=== PATIENT | female | born 1935 | race Caucasian/White ===

== ENCOUNTER 2018-02-03 13:38 | Inpatient (IN) | payer OTHER, MEDICARE ==
[2018-02-03] VITALS (10 sets, daily range): BP systolic 112–139; BP diastolic 49–88; PULSE 84–125; RESP 16–26; TEMP 98.4; O2SAT 98–100
[~2018-02-03] VITALS: Ht 160 cm; Wt 99.4 kg
[~2018-02-03 13:38] MED LIST: AMLO5TAB96 PO; COZA100T PO; FOSA70TA PO
[2018-02-03] MEDS ORDERED: SODIUM CHLOR 0.9% 1000 ML INJ 1,000 ML IV SCH (13:48)
[2018-02-03] MEDS ORDERED: SODIUM CHLORIDE 0.9% FLUSH 10 ML FLUSH IV FLUSH PRN ×2 (14:00→19:00)
--- NOTE | 2018-02-03 14:03 | PD ---
HPI Chief Complaint: Fall, weakness Time Seen by Provider: 13:48 Travel History International Travel<30 days: No Contact w/Intl Traveler<30days: No Traveled to known affect area: No History of Present Illness HPI 82-year-old female patient presents to the ER today brought in by EMS, had fallen down onto the floor and has been laying on the floor for several days, patient does not remember how she got down to the floor, but was found by neighbor and EMS laying in her own feces and urine, weak, could not get up on her own, complaining of pain all over. She currently is denying any chest pains or trouble breathing but is slightly disoriented. Modifying Factors: None Associated Signs & Symptoms: Fall, weakness, pains all over, disorientation Risk Factors: Elderly PFSH Past Medical History Arthritis: Yes Autoimmune Disease: No Blood Disorders: No Cancer: No Cardiovascular Problems: Yes Diminished Hearing: Yes Endocrine: No Genitourinary: No Hypertension: Yes Musculoskeletal: No Neurologic: Yes (RIGHT ARM TREMOR) Psychiatric: No Respiratory: No ?: Not Past Surgical History Abdominal Surgery: Yes (GASTRIC BYPASS 1978) Appendectomy: Yes Cardiac Surgery: No Ear Surgery: No Endocrine Surgery: No Eye Surgery: No Genitourinary Surgery: No Gynecologic Surgery: Yes (hysterectomy) Hysterectomy: Yes Oral Surgery: No Thoracic Surgery: No Other Surgery: Yes Social History Alcohol Use: No Tobacco Use: No Substance Use: No Allergies-Medications (Allergen,Severity, Reaction): Coded Allergies: No Known Allergies (Verified , 04/07/14) Reported Meds & Prescriptions Reported Meds & Active Scripts Active Review of Systems ROS Limitations: Altered Mental Status (It is unclear whether she is a reliable historian) Except as stated in HPI: all other systems reviewed are Neg Physical Exam Narrative GENERAL: Well-developed elderly white female patient currently in moderate distress. She has feces and urine soaked nightgown as well as stains on her body. She is awake, disoriented. SKIN: Focused skin assessment warm/dry. HEAD: Atraumatic. Normocephalic. EYES: Pupils small, equal and round, poorly reactive to light bilaterally. No scleral icterus. No injection or drainage. ENT: No nasal bleeding or discharge. Mucous membranes pink and moist. NECK: Trachea midline. No JVD. CARDIOVASCULAR: Regular rate and rhythm. No murmur appreciated. RESPIRATORY: No accessory muscle use. Clear to auscultation. Breath sounds equal bilaterally. GASTROINTESTINAL: Abdomen soft, non-tender, nondistended. Hepatic and splenic margins not palpable. Pelvis: Stable but tender to palpation bilaterally. Decreased range of motion of the hip secondary to pain. MUSCULOSKELETAL: No obvious deformities. No clubbing. No cyanosis. No edema. NEUROLOGICAL: Awake and mildly disoriented. No obvious cranial nerve deficits. Generally weak. Normal speech. PSYCHIATRIC: Appropriate mood and affect; insight and judgment poor. Data Data Last Documented VS Vital Signs Date Time Temp Pulse Resp B/P (MAP) Pulse Ox O2 Delivery O2 Flow Rate FiO2 02/03/18 14:22 125 18 126/78 (94) 98 Nasal Cannula 2.00 Orders Orders Ammonia (02/03/18 13:48) Complete Blood Count With Diff (02/03/18 13:48) Comprehensive Metabolic Panel (02/03/18 13:48) Creatine Kinase (Cpk) (02/03/18 13:48) Prothrombin Time / Inr (Pt) (02/03/18 13:48) Act Partial Throm Time (Ptt) (02/03/18 13:48) Troponin I (02/03/18 13:48) Thyroid Stimulating Hormone (02/03/18 13:48) Urinalysis - C+S If Indicated (02/03/18 13:48) Lactic Acid Sepsis Protocol (02/03/18 13:48) Blood Culture (02/03/18 13:48) Chest, Single Ap (02/03/18 13:48) Ct Brain W/O Iv Contrast(Rout) (02/03/18 13:48) Blood Glucose (02/03/18 13:48) Ecg Monitoring (02/03/18 13:48) Iv Access Insert/Monitor (02/03/18 13:48) Cath For Specimen (02/03/18 13:48) Oximetry (02/03/18 13:48) Sodium Chloride 0.9% Flush (Ns Flush) (02/03/18 14:00) Sodium Chlor 0.9% 1000 Ml Inj (Ns 1000 M (02/03/18 13:48) Pelvis, Ap Only (Routine) (02/03/18 13:48) CKMB (02/03/18 13:52) CKMB% (02/03/18 13:52) Urine Culture (02/03/18 14:23) Electrocardiogram (02/03/18 13:45) Piperacil-Tazo 4.5 Gm Premix (Zosyn 4.5 (02/03/18 16:12) Sodium Chlor 0.9% 1000 Ml Inj (Ns 1000 M (02/03/18 16:15) Admit Order (Ed Use Only) (02/03/18 16:21) Labs Laboratory Tests Test 02/03/18 13:52 02/03/18 14:02 02/03/18 14:23 White Blood Count 13.3 TH/MM3 Red Blood Count 4.95 MIL/MM3 Hemoglobin 14.3 GM/DL Hematocrit 44.5 % Mean Corpuscular Volume 89.9 FL Mean Corpuscular Hemoglobin 28.8 PG Mean Corpuscular Hemoglobin Concent 32.1 % Red Cell Distribution Width 14.9 % Platelet Count 211 TH/MM3 Mean Platelet Volume 9.4 FL Neutrophils (%) (Auto) 80.4 % Lymphocytes (%) (Auto) 8.5 % Monocytes (%) (Auto) 10.4 % Eosinophils (%) (Auto) 0.5 % Basophils (%) (Auto) 0.2 % Neutrophils # (Auto) 10.7 TH/MM3 Lymphocytes # (Auto) 1.1 TH/MM3 Monocytes # (Auto) 1.4 TH/MM3 Eosinophils # (Auto) 0.1 TH/MM3 Basophils # (Auto) 0.0 TH/MM3 CBC Comment DIFF FINAL Differential Comment Prothrombin Time 11.0 SEC Prothromb Time International Ratio 1.1 RATIO Activated Partial Thromboplast Time 27.1 SEC Blood Urea Nitrogen 89 MG/DL Creatinine 1.58 MG/DL Random Glucose 130 MG/DL Total Protein 6.3 GM/DL Albumin 2.6 GM/DL Calcium Level 8.1 MG/DL Alkaline Phosphatase 72 U/L Aspartate Amino Transf (AST/SGOT) 61 U/L Alanine Aminotransferase (ALT/SGPT) 45 U/L Total Bilirubin 0.8 MG/DL Sodium Level 157 MEQ/L Potassium Level 3.9 MEQ/L Chloride Level 122 MEQ/L Carbon Dioxide Level 23.3 MEQ/L Anion Gap 12 MEQ/L Estimat Glomerular Filtration Rate 31 ML/MIN Total Creatine Kinase 461 U/L Creatine Kinase MB 8.8 NG/ML Creatine Kinase MB % 1.9 % Troponin I 0.03 NG/ML Thyroid Stimulating Hormone 3rd Gen 0.878 uIU/ML Lactic Acid Level 2.3 mmol/L Ammonia LESS THAN 10 MCMOL/L Urine Color YELLOW Urine Turbidity CLOUDY Urine pH 5.0 Urine Specific [place] 1.022 Urine Protein TRACE mg/dL Urine Glucose (UA) NEG mg/dL Urine Ketones NEG mg/dL Urine Occult Blood SMALL Urine Nitrite NEG Urine Bilirubin NEG Urine Urobilinogen 2.0 MG/DL Urine Leukocyte Esterase LARGE Urine RBC 3 /hpf Urine WBC 15 /hpf Urine WBC Clumps FEW Urine Bacteria MANY /hpf Urine Hyaline Casts 0-2 /lpf Urine Mucus FEW /lpf Microscopic Urinalysis Comment CATH-CULTURE IND MDM Medical Decision Making Medical Screen Exam Complete: Yes Emergency Medical Condition: Yes Medical Record Reviewed: Yes Interpretation(s) EKG shows sinus tachycardia at a rate of 120 bpm with a left bundle branch block pattern. Laboratory Tests Test 02/03/18 13:52 02/03/18 14:02 02/03/18 14:23 White Blood Count 13.3 TH/MM3 (4.0-11.0) Neutrophils (%) (Auto) 80.4 % (16.0-70.0) Lymphocytes (%) (Auto) 8.5 % (9.0-44.0) Monocytes (%) (Auto) 10.4 % (0.0-8.0) Neutrophils # (Auto) 10.7 TH/MM3 (1.8-7.7) Monocytes # (Auto) 1.4 TH/MM3 (0-0.9) Blood Urea Nitrogen 89 MG/DL (7-18) Creatinine 1.58 MG/DL (0.50-1.00) Random Glucose 130 MG/DL (74-106) Total Protein 6.3 GM/DL (6.4-8.2) Albumin 2.6 GM/DL (3.4-5.0) Calcium Level 8.1 MG/DL (8.5-10.1) Aspartate Amino Transf (AST/SGOT) 61 U/L (15-37) Sodium Level 157 MEQ/L (136-145) Chloride Level 122 MEQ/L (98-107) Estimat Glomerular Filtration Rate 31 ML/MIN (>89) Total Creatine Kinase 461 U/L (26-192) Creatine Kinase MB 8.8 NG/ML (0.5-3.6) Lactic Acid Level 2.3 mmol/L (0.4-2.0) Ammonia LESS THAN 10 MCMOL/L Urine Turbidity CLOUDY (CLEAR) Urine Occult Blood SMALL (NEG) Urine Leukocyte Esterase LARGE (NEG) Urine WBC 15 /hpf (0-5) Urine WBC Clumps FEW (NONE) Urine Bacteria MANY /hpf (NONE) Urine Mucus FEW /lpf (OCC) Last 24 hours Impressions Pelvis X-Ray 02/03/18 1348 Signed Impressions: Service Date/Time: Saturday, February 03, 2018 15:01 - CONCLUSION: 1. No acute fracture or dislocation. Todd Young MD Head CT 02/03/18 1348 Signed Impressions: Service Date/Time: Saturday, February 03, 2018 14:27 - CONCLUSION: 1. Senescent changes without acute intracranial abnormality. Todd Young MD Chest X-Ray 02/03/18 6948 Signed Impressions: Service Date/Time: Saturday, February 03, 2018 14:56 - CONCLUSION: 1. No acute abnormality. Todd Young MD Differential Diagnosis Fall, disorientation, general weakness: Intracranial injuries versus dehydration versus metabolic issues versus sepsis versus hip fracture Narrative Course When EMS first did the EKG, there were concerned about a possible STEMI because of the left bundle branch block. Patient was not able to tell them whether this is new or old. On our evaluation, patient has old EKG which shows a left bundle branch block. No signs of acute changes with that. She was initially fairly hypotensive with systolic blood pressure 60, was given a liter of IV fluids by EMS with improvement in blood pressures. Lab work shows UTI and leukocytosis, IV antibiotics were initiated after blood cultures are done. Her lab work shows significant dehydration and acute renal failure with elevated BUN and creatinine, elevated sodium levels. Additional IV fluids have been given in the ER. At this point, case is discussed with Dr. Rdz for admission to the critical care unit for further treatment. Aggregate critical care time was 35 minutes. Time to perform other separately billable procedures was not included in the critical care time. My time did not include minutes spent treating any other patients simultaneously or on activities that did not directly contribute to the patient's treatment. The services I provided to this patient were to treat and/or prevent clinically significant deterioration that could result in: Worsening renal failure, dysrhythmias, septic shock, I provided critical care services requiring my management, as noted below: Chart data review, documentation time, medication orders and management, vital sign assessments/reviewing monitor data, ordering and reviewing lab tests, ordering and interpreting/reviewing x-rays and diagnostic studies, care of the patient and discussion of the patient with the admitting physicians. Diagnosis Primary Impression: Acute renal failure Additional Impressions: Hypernatremia Sepsis UTI (urinary tract infection) Admitting Information Admitting Physician Requests: it Stone Dominguez MD February 03, 2018 14:03
[2018-02-03 14:20] LABS: AUTOMATED NEUTROPHIL # 10.7 TH/MM3 (1.8-7.7); BASOPHIL % 0.2 % (0.0-2.0); EOSINOPHIL # 0.1 TH/MM3 (0-0.4); EOSINOPHIL % 0.5 % (0.0-4.0); HEMATOCRIT 44.5 % (35.0-46.0); HEMOGLOBIN 14.3 GM/DL (11.6-15.3); LYMPH % 8.5 % (9.0-44.0); LYMPHOCYTE # 1.1 TH/MM3 (1.0-4.8); MEAN CELL VOLUME 89.9 FL (80.0-100.0); MEAN CORPUSCULAR HEMOGLOBIN 28.8 PG (27.0-34.0); MEAN CORPUSCULAR HGB CONC 32.1 % (32.0-36.0); MEAN PLATELET VOLUME 9.4 FL (7.0-11.0); MONO % 10.4 % (0.0-8.0); MONOCYTE # 1.4 TH/MM3 (0-0.9); NEUT % 80.4 % (16.0-70.0); PLATELET COUNT 211 TH/MM3 (150-450); RED BLOOD COUNT 4.95 MIL/MM3 (4.00-5.30); RED CELL DISTRIBUTION WIDTH 14.9 % (11.6-17.2); WHITE BLOOD COUNT 13.3 TH/MM3 (4.0-11.0)
[2018-02-03 14:28] LABS: LACTIC ACID SEPSIS PROTOCOL 2.3 mmol/L (0.4-2.0)
[2018-02-03 14:29] LABS: INTERNATIONAL NORMALIZED RATIO 1.1 RATIO
[2018-02-03 14:48] LABS: ALBUMIN 2.6 GM/DL (3.4-5.0); ALT (GPT) 45 U/L (10-53); AST (GOT) 61 U/L (15-37); BICARBONATE 23.3 MEQ/L (21.0-32.0); BLOOD UREA NITROGEN 89 MG/DL (7-18); CALCIUM 8.1 MG/DL (8.5-10.1); CHLORIDE 122 MEQ/L (98-107); CREATININE 1.58 MG/DL (0.50-1.00); GLOMERULAR FILTRATION RATE 31 ML/MIN (>89); GLUCOSE,RANDOM 130 MG/DL (74-106)
--- NOTE | 2018-02-03 14:51 | RADRPT ---
EXAM DATE/TIME: 02/03/2018 14:27 [facility] COMPARISON: No previous studies available for comparison. INDICATIONS : Fall, found on floor. RADIATION DOSE: 56.35 CTDIvol (mGy) MEDICAL HISTORY : Cardiovascular disease. Hypertension. SURGICAL HISTORY : Appendectomy. Hysterectomy. ENCOUNTER: Initial ACUITY: 1 day PAIN SCALE: 0/10 LOCATION: cranial TECHNIQUE: Multiple contiguous axial images were obtained of the head. Using automated exposure control and adj ustment of the mA and/or kV according to patient size, radiation dose was kept as low as reasonably a chievable to obtain optimal diagnostic quality images. DICOM format image data is available electro nically for review and comparison. FINDINGS: CEREBRUM: Moderate diffuse cervical volume loss. The ventricles are normal for degree of atrophy. No evidence of midline shift, mass lesion, hemorrhage or acute infarction. No extra-axial fluid collections are seen. POSTERIOR FOSSA: The cerebellum and brainstem are intact. The 4th ventricle is midline. The cerebellopontine angle i s unremarkable. EXTRACRANIAL: The visualized portion of the orbits is intact. SKULL: The calvaria is intact. No evidence of skull fracture. CONCLUSION: 1. Senescent changes without acute intracranial abnormality. Todd Young MD on February 03, 2018 at 14:48 Board Certified Radiologist. This report was verified electronically.
[2018-02-03 15:04] LABS: ALKALINE PHOSPHATASE 72 U/L (45-117); TOTAL BILIRUBIN ADULT 0.8 MG/DL (0.2-1.0); TOTAL PROTEIN 6.3 GM/DL (6.4-8.2); TROPONIN I 0.03 NG/ML (0.02-0.05)
[2018-02-03 15:05] LABS: SODIUM (NA) 157 MEQ/L (136-145)
--- NOTE | 2018-02-03 15:22 | RADRPT ---
EXAM DATE/TIME: 02/03/2018 14:56 [facility] COMPARISON: No previous studies available for comparison. INDICATIONS : Fall, syncope. MEDICAL HISTORY : None. SURGICAL HISTORY : None. ENCOUNTER: Initial ACUITY: 1 day PAIN SCORE: Non-responsive. LOCATION: Bilateral chest FINDINGS: No significant focal pleural or parenchymal opacities. Cardiomediastinal contours are within normal l imits. Bony thorax is grossly intact. CONCLUSION: 1. No acute abnormality. Todd Young MD on February 03, 2018 at 15:19 Board Certified Radiologist. This report was verified electronically.
--- NOTE | 2018-02-03 15:24 | RADRPT ---
EXAM DATE/TIME: 02/03/2018 15:01 [facility] COMPARISON: No previous studies available for comparison. INDICATIONS : Fall, syncope. MEDICAL HISTORY : None. SURGICAL HISTORY : None. ENCOUNTER: Initial ACUITY: 1 day PAIN SCORE: Non-responsive. LOCATION: Bilateral pelvis FINDINGS: A single frontal view of the pelvis demonstrates no evidence of fracture. The bony pelvic ring is in tact. Bony mineralization is normal. Degenerative changes of the SI joints. Mild degenerative mayer es about the hips. The soft tissues are intact. CONCLUSION: 1. No acute fracture or dislocation. Todd Young MD on February 03, 2018 at 15:21 Board Certified Radiologist. This report was verified electronically.
[2018-02-03 15:33] LABS: BLOOD, URINE SMALL (NEG); GLUCOSE,URINE NEG (NEG); KETONE, URINE NEG (NEG); NITRITE,URINE NEG (NEG); URINE COLOR YELLOW (YELLW/STRAW); URINE LEUKOCYTE ESTERASE LARGE (NEG)
[2018-02-03 15:37] LABS: BILIRUBIN, URINE NEG (NEG); HYALINE CAST, URINE 0-2 /lpf (RARE); MUCUS URINE FEW /lpf (OCC)
[2018-02-03 15:38] LABS: BACTERIA, URINE MANY /hpf; WHITE BLOOD CELL CLUMPS FEW
[2018-02-03] MEDS ORDERED: PIPERACIL-TAZO 4.5 GM PREMIX 100 ML IV STA (16:12)
[2018-02-03] MEDS ORDERED: SODIUM CHLOR 0.9% 1000 ML INJ 1,000 ML IV ONE (16:15)
--- NOTE | 2018-02-03 18:30 | HHI.HP ---
HPI Service Critical Care Medicine Primary Care Physician Unknown Admission Diagnosis Acute renal failure/UTI/severe sepsis/hypernatremia Diagnosis: Travel History International Travel<30 Days: No Contact w/Intl Traveler <30 Da: No Traveled to Known Affected Are: No History of Present Illness 82-year-old female who is brought to [facility] emergency department after she was found down on the floor of her kitchen. She was unable to recall circumstances of the fall but is confused. She has pressure wounds that are consistent with being on the floor for several days and she was covered in urine and feces. Her daughter last saw her on Monday 6 days ago and had not been in contact with her since. Her daughter states she has had trip and falls several times in the past and has been unable to get herself up. She was hypotensive with blood pressures in the 60s when [facility] arrived. They placed a peripheral IV and started 1 L normal saline bolus. An additional 1 L normal saline bolus was ordered. ED workup reveals urinalysis consistent with UTI, acute kidney injury with creatinine of 1.58 and sodium 157. She received Zosyn. Her blood pressure is now 113/58 with heart rate 119. Review of Systems ROS Limitations: Clinical Condition, Altered Mental Status Past Family Social History Allergies: Coded Allergies: No Known Allergies (Verified Allergy, Unknown, 02/03/18) Past Medical History PMD At [facility] and [facility]. HTN HLD poor vision Hard of hearing Mild memory deficit per her daughter Past Surgical History gastric bypass appy hysterectomy ORIF trimalleolar fracture of the Right ankle 11/03/2004. Reported Medications Alendronate 70 tab weekly amlodipine 5 mg po daily pravastatin 20 mg po daily. Losartan unknown dose one tab daily Family History Mom late 70s or early 80s of unknown causes Dad of [place] in late 70s. Social History Former smoker quit 35-40 years ago. Never drank alcohol. Never substance abuse Lives alone. Her daughter says she believes she has a living will. No longer driving. Physical Exam Vital Signs Vital Signs Date Time Temp Pulse Resp B/P (MAP) Pulse Ox O2 Delivery O2 Flow Rate FiO2 02/03/18 17:48 100 18 133/63 (86) 99 Nasal Cannula 2.00 02/03/18 16:28 90 18 139/84 (102) 99 Nasal Cannula 2.00 02/03/18 14:22 125 18 126/78 (94) 98 Nasal Cannula 2.00 02/03/18 13:54 100 2.00 02/03/18 13:41 124 20 129/88 (102) 99 Physical Exam GENERAL: Elderly disheveled female who is sitting up in the ED stretcher. She was covered in feces. SKIN: Warm and dry. There is a pressure ulceration of right breast, anterior abdomen has linear pressure wound with some surrounding erythema, no crepitus. , medial aspect of left first metatarsal,~6 cm ulceration medial aspect of left knee. HEAD: Atraumatic. Normocephalic. EYES: Pupils equal and round, 2 mm and reactive. No scleral icterus. No injection or drainage. ENT: No nasal bleeding or discharge. Mucous membranes dry NECK: Trachea midline. No JVD. CARDIOVASCULAR: Regular rate and rhythm, sinus rhythm on monitor with rate in the 90. No murmurs rubs or gallops. RESPIRATORY: On room air no accessory muscle use. Clear to auscultation. Breath sounds equal bilaterally. GASTROINTESTINAL: Abdomen soft, non-tender, nondistended. Bowel sounds are present MUSCULOSKELETAL: Extremities without clubbing, cyanosis, or edema. NEUROLOGICAL: Awake, mumbles a few comprehensible words, does not answer questions of orientation. Spontaneously moving right foot and BUE, does not follow commands. Withdraws LLE to noxious stimuli and yells "ouch". Laboratory Laboratory Tests Test 02/03/18 13:52 02/03/18 14:02 02/03/18 14:23 02/03/18 16:35 White Blood Count 13.3 Red Blood Count 4.95 Hemoglobin 14.3 Hematocrit 44.5 Mean Corpuscular Volume 89.9 Mean Corpuscular Hemoglobin 28.8 Mean Corpuscular Hemoglobin Concent 32.1 Red Cell Distribution Width 14.9 Platelet Count 211 Mean Platelet Volume 9.4 Neutrophils (%) (Auto) 80.4 Lymphocytes (%) (Auto) 8.5 Monocytes (%) (Auto) 10.4 Eosinophils (%) (Auto) 0.5 Basophils (%) (Auto) 0.2 Neutrophils # (Auto) 10.7 Lymphocytes # (Auto) 1.1 Monocytes # (Auto) 1.4 Eosinophils # (Auto) 0.1 Basophils # (Auto) 0.0 CBC Comment DIFF FINAL Differential Comment Prothrombin Time 11.0 Prothromb Time International Ratio 1.1 Activated Partial Thromboplast Time 27.1 Blood Urea Nitrogen 89 Creatinine 1.58 Random Glucose 130 Total Protein 6.3 Albumin 2.6 Calcium Level 8.1 Alkaline Phosphatase 72 Aspartate Amino Transf (AST/SGOT) 61 Alanine Aminotransferase (ALT/SGPT) 45 Total Bilirubin 0.8 Sodium Level 157 Potassium Level 3.9 Chloride Level 122 Carbon Dioxide Level 23.3 Anion Gap 12 Estimat Glomerular Filtration Rate 31 Total Creatine Kinase 461 Creatine Kinase MB 8.8 Creatine Kinase MB % 1.9 Troponin I 0.03 Thyroid Stimulating Hormone 3rd Gen 0.878 Lactic Acid Level 2.3 1.6 Ammonia LESS THAN 10 Urine Color YELLOW Urine Turbidity CLOUDY Urine pH 5.0 Urine Specific [place] 1.022 Urine Protein TRACE Urine Glucose (UA) NEG Urine Ketones NEG Urine Occult Blood SMALL Urine Nitrite NEG Urine Bilirubin NEG Urine Urobilinogen 2.0 Urine Leukocyte Esterase LARGE Urine RBC 3 Urine WBC 15 Urine WBC Clumps FEW Urine Bacteria MANY Urine Hyaline Casts 0-2 Urine Mucus FEW Microscopic Urinalysis Comment CATH-CULTURE IND Date/Time Source Procedure Growth Status 02/03/18 14:25 Blood Peripheral Aerobic Blood Culture Pending Received 02/03/18 14:25 Blood Peripheral Anaerobic Blood Culture Pending Received 02/03/18 14:23 Urine Catheterized Urine Urine Culture Pending Received Result Diagram: 02/03/18 1352 02/03/18 1352 Septic Shock Reassessment Septic shock perfusion: reassessment completed Caprini VTE Risk Assessment Caprini VTE Risk Assessment: Mod/High Risk (score >= 2) Caprini Risk Assessment Model Point Value = 1 Point Value = 2 Point Value = 3 Point Value = 5 Age 41-60 Minor surgery BMI > 25 kg/m2 Swollen legs Varicose veins or History of unexplained or recurrent spontaneous Oral contraceptives or hormone replacement Sepsis (< 1 month) Serious lung disease, including pneumonia (< 1 month) Abnormal pulmonary function Acute myocardial infarction Congestive heart failure (< 1 month) History of inflammatory bowel disease Medical patient at bed rest Age 61-74 Arthroscopic surgery Major open surgery (> 45 min) Laparoscopic surgery (> 45 min) Malignancy Confined to bed (> 72 hours) Immobilizing plaster cast Central venous access Age >= 75 History of VTE Family history of VTE Factor V Leiden Prothrombin [id number] Lupus anticoagulant Anticardiolipin antibodies Elevated serum homocysteine Heparin-induced thrombocytopenia Other congenital or acquired thrombophilia Stroke (< 1 month) Elective arthroplasty Hip, pelvis, or leg fracture Acute spinal cord injury (< 1 month) Prophylaxis Regimen Total Risk Factor Score Risk Level Prophylaxis Regimen 0-1 Low Early ambulation 2 Moderate Order ONE of the following: *Sequential Compression Device (SCD) *Heparin 5000 units SQ BID 3-4 Higher Order ONE of the following medications: *Heparin 5000 units SQ TID *Enoxaparin/Lovenox 40 mg SQ daily (WT < 150 kg, CrCl > 30 mL/min) *Enoxaparin/Lovenox 30 mg SQ daily (WT < 150 kg, CrCl > 10-29 mL/min) *Enoxaparin/Lovenox 30 mg SQ BID (WT < 150 kg, CrCl > 30 mL/min) AND/OR *Sequential Compression Device (SCD) 5 or more Highest Order ONE of the following medications: *Heparin 5000 units SQ TID (Preferred with Epidurals) *Enoxaparin/Lovenox 40 mg SQ daily (WT < 150 kg, CrCl > 30 mL/min) *Enoxaparin/Lovenox 30 mg SQ daily (WT < 150 kg, CrCl > 10-29 mL/min) *Enoxaparin/Lovenox 30 mg SQ BID (WT < 150 kg, CrCl > 30 mL/min) AND *Sequential Compression Device (SCD) Assessment and Plan Assessment and Plan NEURO: Acute encephalopathy Hard of hearing Presbyopic CT brain shows atrophy but no acute changes. Ammonia level normal. RESP: Former tobacco abuse CXR with no infiltrate but will follow up in a.m. as an infiltrate might not be apparent due to degree of dehydration DuoNeb every 6 hours. CV: Severe sepsis Lactic acidemia Essential HTN at baseline Hyperlipidemia. Continue pravastatin 20 mill grams p.o. Hold losartan due to OSMIN Hold Norvasc as BP was low Initial troponin negative. Will follow serial troponins. Received 2 L normal saline bolus. She is now normotensive and does not appear to require pressors. Trend lactic acid. D5W as per below GI: Obesity NPO currently due to mental status FEN/RENAL: Acute hypernatremic dehydration Received 2 L NS bolus (1 per [facility] and 1 per ED). Calculated free water deficit and will initiate D5 W @ 120/hr. F/u BMP. CPK elevated, will follow up level in a.m. ID: Severe sepsis Multiple pressure wounds, ?cellulitis abdomen. UTI Received Zosyn in the emergency department. Appears cellulitic around pressure wound anterior abdomen so will add Vancomycin for SSTI. Follow-up blood and urine cultures. HEME: Monitor cBC. ENDO: TSH normal Mild hyperglycemia. Monitor glucose and will start sliding scale if needed. PROPH: SCD/heparin 5000 subcu every 12 hours for DVT prophylaxis. Famotidine for stress ulcer prophylaxis. ACCESS: Peripheral IV providing adequate access at this time Patient is not capacitated for medical decision-making. Her daughter, Ankita Abbott, believes that she has a living will designating Ankita as her healthcare surrogate. She is not certain of the contents of the living will. She says she will bring in paperwork tomorrow. She is aware that patient has been designated full code at this time. Full code Level 3 H&P Kerry Rdz MD February 03, 2018 18:30
[2018-02-03] MEDS ORDERED: Vancomycin Consult Pharmacy 1 EA OTHER SCH (18:45)
[2018-02-03] MEDS ORDERED: ACETAMINOPHEN 325 MG TAB PO PRN (19:00)
[2018-02-03] MEDS ORDERED: CHLORHEXIDINE GLUCONATE 2 % 1 PACK (2 CLOTHS) TOP PRN (19:00)
[2018-02-03] MEDS ORDERED: BISACODYL 10 MG SUPP RECTAL PRN (19:00)
[2018-02-03] MEDS ORDERED: RESP: ALBUTEROL 2.5 MG/3 ML NEB (PRN) INH (19:00)
[2018-02-03] MEDS ORDERED: SENNOSIDES 8.6 MG TAB PO PRN (19:00)
[2018-02-03] MEDS ORDERED: NURSING INFORMATION XX SCH (19:00)
[2018-02-03] MEDS ORDERED: MAGNESIUM HYDROXIDE SUSP 30 ML CUP PO PRN (19:00)
[2018-02-03] MEDS ORDERED: LACTULOSE SYRUP 20 GM/30 ML CUP PO PRN (19:00)
[2018-02-03] MEDS: RESP: ALBUTEROL 2.5 MG/IPRATROPIUM 0.5 MG NEB (SCH) INH (19:37)
[2018-02-03] MEDS: DEXTROSE 5% IN WATE 1000ML INJ 1,000 ML IV SCH ×2 (19:48→22:26)
[2018-02-03] MEDS ORDERED: VANCOMYCIN INJ 1,250 MG in SODIUM CHLOR 0.9% 250 ML INJ 250 ML IV ONE (21:00)
[2018-02-03] MEDS ORDERED: FAMOTIDINE 20 MG/2 ML VIAL IV PUSH SCH (21:00)
[2018-02-03] MEDS: SODIUM CHLORIDE 0.9% FLUSH 10 ML FLUSH IV FLUSH SCH (21:00)
[2018-02-03] MEDS: DOCUSATE SODIUM 50 MG/SENNA 8.6 MG TAB PO SCH (21:00)
[2018-02-03 21:46] LABS: BICARBONATE 20.4 MEQ/L (21.0-32.0); CREATININE 1.45 MG/DL (0.50-1.00)
[2018-02-03 21:48] LABS: TROPONIN I 0.02 NG/ML (0.02-0.05)
[2018-02-03] MEDS: PIPERACIL-TAZO 3.375 GM PREMIX 50 ML IV SCH (22:25)
[2018-02-03] MEDS: HEPARIN SODIUM - SQ 10,000 UNITS/ML VIAL SQ SCH (22:25)
[2018-02-03] MEDS: MORPHINE SULFATE 4 MG/ML INJ IV PRN (22:31)
[2018-02-04] VITALS (15 sets, daily range): BP systolic 95–124; BP diastolic 49–73; PULSE 75–133; RESP 15–24; TEMP 97.7–98.1; O2SAT 94–100
[2018-02-04] MEDS: RESP: ALBUTEROL 2.5 MG/IPRATROPIUM 0.5 MG NEB (SCH) INH ×4 (03:54→21:59)
[2018-02-04] MEDS: CHLORHEXIDINE GLUCONATE 2 % 1 PACK (2 CLOTHS) TOP SCH (04:00)
--- NOTE | 2018-02-04 04:03 | RADRPT ---
EXAM DATE/TIME: 02/04/2018 03:39 [facility] COMPARISON: CHEST SINGLE AP, February 03, 2018, 14:56. INDICATIONS : Shortness of breath. MEDICAL HISTORY : Cardiovascular disease. Hypertension SURGICAL HISTORY : Hysterectomy. Appendectomy. ENCOUNTER: Subsequent ACUITY: 2 days PAIN SCORE: Non-responsive. LOCATION: Bilateral chest FINDINGS: Heart size upper limits normal. Oxilan or calcification. No new consolidation or significant effusion . Multiple surgical clips left upper quadrant. No pneumothorax. CONCLUSION: 1. No acute findings. Mina Treviño MD on February 04, 2018 at 4:01 Board Certified Radiologist. This report was verified electronically.
[2018-02-04] MEDS: PIPERACIL-TAZO 3.375 GM PREMIX 50 ML IV SCH ×3 (05:00→17:05)
[2018-02-04] MEDS: MORPHINE SULFATE 4 MG/ML INJ IV PRN ×3 (05:13→13:50)
--- NOTE | 2018-02-04 06:18 | HHI.CCPN ---
Subjective Remarks/Hospital Course 82-year-old female who is brought to [facility] emergency department after she was found down on the floor of her kitchen. She was unable to recall circumstances of the fall but is confused. She has pressure wounds that are consistent with being on the floor for several days and she was covered in urine and feces. Her daughter last saw her on Monday 6 days ago and had not been in contact with her since. Her daughter states she has had trip and falls several times in the past and has been unable to get herself up. She was hypotensive with blood pressures in the 60s when [facility] arrived. They placed a peripheral IV and started 1 L normal saline bolus. An additional 1 L normal saline bolus was ordered. ED workup reveals urinalysis consistent with UTI, acute kidney injury with creatinine of 1.58 and sodium 157. She received Zosyn. Her blood pressure is now 113/58 with heart rate 119. Subjective 02/04: Remains encephalopathic/delirious this a.m. moaning and requesting for "water". She is currently afebrile. Afebrile. No bowel movement. Becomes tachycardic when moves secondary to pain Objective Vital Signs Date Time Temp Pulse Resp B/P (MAP) Pulse Ox O2 Delivery O2 Flow Rate FiO2 02/04/18 03:56 100 Nasal Cannula 2.00 02/04/18 00:00 76 24 113/66 (82) 02/03/18 20:45 98.4 Result Diagram: 02/03/18 1352 02/03/18 2117 Other Results Microbiology Date/Time Source Procedure Growth Status 02/03/18 14:25 Blood Peripheral Aerobic Blood Culture Pending Received 02/03/18 14:25 Blood Peripheral Anaerobic Blood Culture Pending Received 02/03/18 14:23 Urine Catheterized Urine Urine Culture Pending Received Imaging Last Impressions Chest X-Ray 02/04/18 0600 Signed Impressions: Service Date/Time: Sunday, February 04, 2018 03:39 - CONCLUSION: 1. No acute findings. Mina Treviño MD Pelvis X-Ray 02/03/18 2048 Signed Impressions: Service Date/Time: Saturday, February 03, 2018 15:01 - CONCLUSION: 1. No acute fracture or dislocation. Todd Young MD Head CT 02/03/18 2848 Signed Impressions: Service Date/Time: Saturday, February 03, 2018 14:27 - CONCLUSION: 1. Senescent changes without acute intracranial abnormality. Todd Young MD Objective Remarks GENERAL: 82-year-old female currently resting in bed in mild distress secondary to pain SKIN: Warm and dry. There is a pressure ulceration of right breast including Areola with multiple excoriations/scratching. Anterior abdomen has linear pressure wound with some surrounding erythema,, medial aspect of left first metatarsal,~6 cm ulceration medial aspect of left knee. Large stage II to 3 pressure injury of her right hip about 13 x 4 cm with foul-smelling output. HEAD: Atraumatic. Normocephalic. EYES: Pupils equal and round, 2 mm and reactive to 1 mm. No scleral icterus. No injection or drainage. ENT: No nasal bleeding or discharge. Mucous membranes dry NECK: Trachea midline. No JVD. CARDIOVASCULAR: Tachycardic, RR. S1, S2 no S4. Without murmur RESPIRATORY: Essentially clear to auscultation without wheezes rales rhonchi GASTROINTESTINAL: Abdomen soft, non-tender, nondistended. Bowel sounds are present MUSCULOSKELETAL: Extremities trace to 1+ bilateral lower extremity nonpitting edema.. History of fourth right finger partial amputation NEUROLOGICAL: Awake and requesting water. Moves all 4 extremities spontaneously. Urinary Catheter: Yes Assessment to: Continue Wren insert reason: Prolonged Immobilization Vascular Central Line Catheter: No Assessment to: Continue A/P Assessment and Plan NEURO/PSYCH: Acute toxic metabolic encephalopathy Hard of hearing Presbycusis Underlying dementia disorder? CT brain 02/03 shows diffuse moderate atrophy but no acute changes. Ammonia level was less than 10 Acetaminophen 600 mg p.o. every 6 hours as needed fever/pain 1 through 5 Morphine sulfate 1 g IV every 4 hours as needed pain 6 - 10 RESP: History of tobaccoism Nasal cannula to maintain saturations greater than or equal to 92% Incentive spirometry while awake Albuterol/ipratropium aerosols every 6 hours with albuterol aerosols every 2 hours as needed dyspnea CXR in a.m. 02/04 revealed no acute cardiopulmonary findings CV: Severe sepsis likely secondary to multiple pressure ulcers Lactic acidemia resolved Essential HTN at baseline Hyperlipidemia. Hold losartan unknown dosage due to acute kidney injury Hold amlodipine 5 mg daily as BP was low Holding pravastatin due to muscle breakdown Initial troponin negative. Will follow serial troponins. Received 2 L normal saline bolus. She is now normotensive and does not appear to require pressors. Switch IV fluids to quarter normal saline at 150 cc an hour see orders As needed labetalol/Nitropaste for hypertension GI: Hypoalbuminemia Elevated transaminases Speech therapy evaluate and treat Currently n.p.o. status Pantoprazole for GI prophylaxis Docusate sodium/senna 1 tablet twice daily for bowel regimen FEN/RENAL: Acute hypernatremic dehydration Acute kidney injury creatinine currently 1.45 Received 2 L NS bolus (1 per [facility] and 1 per ED). We will switch to one quarter normal saline at 125 cc an hour Check serum/urine osm Recheck sodium 1800 hrs. A.m. laboratories still pending Left kidney is identified. No hydronephrosis on right side Check urine electrolytes and eosinophils ID: Severe sepsis Multiple pressure wounds, ?cellulitis abdomen. UTI Received Zosyn in the emergency department. Appears cellulitic around pressure wound anterior abdomen so will add Vancomycin for SSTI. Follow-up blood and urine cultures. CT thorax/abdomen pelvis when appropriate/patient stabilized Infectious disease consultation HEME: Leukocytosis Thrombocytopenia Monitor CBC daily. Follow trend No indication for transfusion of blood products at this time ENDO: Stress hyperglycemia TSH 0.87 Sliding scale insulin with Accu-Cheks to maintain euglycemia with knobby log MSK: Grade 2-3 pressure injury to right hip Grade 2 pressure injury to right breast Elevated BMI Osteoporosis/osteoarthritis Wound care evaluate and treat Currently keeping right 13 x 4 cm decubitus pressure injury wet-to-dry changes PT evaluate and treat Weight loss encouraged PROPH: SCD/heparin 5000 subcu every 12 hours for DVT prophylaxis. Pantoprazole for stress ulcer prophylaxis. ACCESS: Peripheral IV providing adequate access at this time Level 2 follow-up Yomi Modi MD February 04, 2018 06:18
[2018-02-04 06:35] LABS: AUTOMATED NEUTROPHIL # 12.1 TH/MM3 (1.8-7.7); BASOPHIL % 0.3 % (0.0-2.0); EOSINOPHIL # 0.1 TH/MM3 (0-0.4); EOSINOPHIL % 0.8 % (0.0-4.0); HEMATOCRIT 43.8 % (35.0-46.0); HEMOGLOBIN 13.9 GM/DL (11.6-15.3); LYMPH % 10.7 % (9.0-44.0); LYMPHOCYTE # 1.6 TH/MM3 (1.0-4.8); MEAN CELL VOLUME 91.7 FL (80.0-100.0); MEAN CORPUSCULAR HEMOGLOBIN 29.1 PG (27.0-34.0); MEAN CORPUSCULAR HGB CONC 31.7 % (32.0-36.0); MEAN PLATELET VOLUME 9.6 FL (7.0-11.0); MONO % 9.4 % (0.0-8.0); MONOCYTE # 1.4 TH/MM3 (0-0.9); NEUT % 78.8 % (16.0-70.0); PLATELET COUNT 147 TH/MM3 (150-450); RED BLOOD COUNT 4.78 MIL/MM3 (4.00-5.30); RED CELL DISTRIBUTION WIDTH 15.1 % (11.6-17.2); WHITE BLOOD COUNT 15.3 TH/MM3 (4.0-11.0)
[2018-02-04] MEDS ORDERED: PRAVASTATIN SOD 20 MG TAB PO SCH (09:00)
[2018-02-04] MEDS: DOCUSATE SODIUM 50 MG/SENNA 8.6 MG TAB PO SCH ×2 (09:08→21:25)
[2018-02-04] MEDS: HEPARIN SODIUM - SQ 10,000 UNITS/ML VIAL SQ SCH ×2 (09:08→21:25)
[2018-02-04] MEDS: SODIUM CHLORIDE 0.9% FLUSH 10 ML FLUSH IV FLUSH SCH ×2 (09:08→21:25)
[2018-02-04] MEDS: SODIUM CHLORIDE 23.4% INJ 38.5 MEQ in WATER STERILE FOR INJ 1,000 ML IV SCH ×2 (09:48→22:08)
--- NOTE | 2018-02-04 10:06 | RADRPT ---
EXAM DATE/TIME: 02/04/2018 08:09 [facility] COMPARISON: No previous studies available for comparison. INDICATIONS : Hydronephrosis. MEDICAL HISTORY : Hypertension. Arthritis. Right arm tremor. SURGICAL HISTORY : Appendectomy. Hysterectomy. Gastric bypass. Blood transfusions. ENCOUNTER: Initial ACUITY: 1 day PAIN SCORE: Nonresponsive. LOCATION: Bilateral flank MEASUREMENTS: RIGHT KIDNEY: 9.9 x 4.3 x 5.8 cm LEFT KIDNEY: Not visualized. FINDINGS: There is prominent distention of the gallbladder incidentally noted. RIGHT KIDNEY: Renal cortex is normal in thickness and echotexture. No hydronephrosis, stone, or mass. LEFT KIDNEY: The left kidney is not visualized. BLADDER: Within normal limits given the degree of distension. CONCLUSION: 1. No evidence of hydronephrosis the right kidney. 2. Left kidney is not visualized. Slim Pizano MD on February 04, 2018 at 10:01 Board Certified Radiologist. This report was verified electronically.
[2018-02-04] MEDS ORDERED: NITROGLYCERIN 2% OINT 1 GM PACKET TOPICAL PRN (11:30)
[2018-02-04] MEDS ORDERED: GLUCAGON 1 MG/ML VIAL OTHER PRN (11:30)
[2018-02-04] MEDS ORDERED: DEXTROSE 50% IN WATER 50 ML VIAL(D50) IV PUSH PRN (11:30)
[2018-02-04] MEDS ORDERED: LABETALOL HCL 100 MG/20 ML VIAL IV PUSH PRN (11:30)
[2018-02-04] MEDS ORDERED: DIATRIZOATE MEGLUM/DIATRIZOATE SOD 9 ML CUP PO ONE (12:00)
[2018-02-04] MEDS: INSULIN ASPART SUPPLEMENTAL SCALE SQ SCH ×3 (12:00→21:00)
[2018-02-04 12:52] LABS: CREATININE, RANDOM URINE 110.7 MG/DL
[2018-02-04 13:55] LABS: ALBUMIN 2.3 GM/DL (3.4-5.0); ALKALINE PHOSPHATASE 152 U/L (45-117); ALT (GPT) 59 U/L (10-53); AST (GOT) 129 U/L (15-37); BICARBONATE 20.6 MEQ/L (21.0-32.0); CHLORIDE 125 MEQ/L (98-107); CREATININE 1.48 MG/DL (0.50-1.00); GLOMERULAR FILTRATION RATE 34 ML/MIN (>89); GLUCOSE,RANDOM 167 MG/DL (74-106); MAGNESIUM 2.6 MG/DL (1.5-2.5); PHOSPHORUS 3.5 MG/DL (2.5-4.9); TOTAL BILIRUBIN ADULT 1.4 MG/DL (0.2-1.0); TOTAL PROTEIN 6.1 GM/DL (6.4-8.2)
[2018-02-04 13:56] LABS: BLOOD UREA NITROGEN 75 MG/DL (7-18)
[2018-02-04 14:00] LABS: SODIUM (NA) 159 MEQ/L (136-145)
[2018-02-04] MEDS ORDERED: DIGOXIN 0.5 MG/2 ML VIAL IV PUSH ONE (14:15)
[2018-02-04] MEDS ORDERED: METOPROLOL TARTRATE 5 MG/5 ML VIAL IV PUSH ONE ×3 (14:15→19:15)
[2018-02-04] MEDS ORDERED: PHENYLEPHRINE INJ 160 MG in DEXTROSE 5% IN WATE 500 ML INJ 484 ML IV PRN ×2 (14:15)
[2018-02-04] MEDS ORDERED: TERBUTALINE INJ 1 MG/ML AMP SQ PRN (14:15)
[2018-02-04] MEDS ORDERED: PHENYLEPHRINE HCL 10 MG/ML VIAL ONE (14:19)
[2018-02-04] MEDS ORDERED: SODIUM CHLOR 0.45% 500 ML INJ 500 ML IV ONE (14:30)
[2018-02-04] MEDS ORDERED: SODIUM CHLORIDE 0.9% FLUSH 10 ML FLUSH IV FLUSH PRN (15:00)
--- NOTE | 2018-02-04 15:01 | PD.PROCEDR ---
Central Line Procedure REASON FOR PROCEDURE Central venous access PROCEDURE PERFORMED Central line placement: Right IJ CVL CONSENT Informed consent for procedure was obtained from dtr. The risks and benefits of the procedure were discussed to include but limited to bleeding, clot formation, infection, and even . ANESTHESIA Local injection of 1% Lidocaine DESCRIPTION OF THE PROCEDURE The patient was placed in supine, mild Trendelenburg position. The area was exposed and cleansed with ChloraPrep, times two. Large sterile drape was used to cover the patient, with the site exposed, under sterile conditions including cap, face mask, sterile gown, and sterile gloves. On single attempt, the introducer needle was inserted with negative pressure in syringe and venous flash was obtained. The guide wire was then advanced without any restriction and the needle was removed. The dilator was used without any complications. Using Seldinger technique the antibiotic coated triple lumen catheter was advanced over the guide wire to a depth of 16 centimeters. The guide wire was removed. All ports were aspirated with dark venous blood return and flushed easily with sterile saline. All ports were capped. Antibiotic disc was placed around central line at puncture site. The central line was secured to the skin with two interrupted 2.0 silk sutures. The area was bandaged with sterile see- through central line bandage. RADIOLOGICAL DATA Ultrasound guidance was used to locate pending at time of dictation. Doppler/ color flow was used to confirm venous flow. COMPLICATIONS: No apparent complications ESTIMATED BLOOD LOSS: Less than 1 cc. Yomi Modi MD February 04, 2018 15:01
--- NOTE | 2018-02-04 15:02 | PD.PROCEDR ---
Procedure Note Procedure DATE: 02/04/2018 PROCEDURE: Right femoral arterial catheter placement INDICATION: Hemodynamic access DETAILS OF PROCEDURE The patient was placed in supine position. The skin was cleansed with Chloraprep. Additional barrier precautions included large sterile drape, sterile gloves, sterile gown, face mask, and hat. 1% lidocaine was used for local anesthesia. Under direct ultrasound guidance and on the initial attempt, the artery was accessed with an introducer needle. The guide wire was advanced. Using Seldinger technique 20 gauge arterial catheter was placed. The guide wire was removed. The catheter was connected to a transducer line and flushed with saline. The video monitor displayed normal arterial wave forms. The catheter was secured with 2-0 silk. A sterile dressing with antibiotic disc was applied. ESTIMATED BLOOD LOSS: minimal COMPLICATIONS: None Yomi Modi MD February 04, 2018 15:02
[2018-02-04 15:07] LABS: CALCIUM 8.2 MG/DL (8.5-10.1); CREATININE 1.44 MG/DL (0.50-1.00)
--- NOTE | 2018-02-04 15:52 | RADRPT ---
EXAM DATE/TIME: 02/04/2018 15:08 [facility] COMPARISON: CHEST SINGLE AP, February 04, 2018, 3:39. INDICATIONS : Evaluate central line placement MEDICAL HISTORY : Cardiovascular disease. Hypertension SURGICAL HISTORY : Hysterectomy. Appendectomy ENCOUNTER: Subsequent ACUITY: 2 days PAIN SCORE: Non-responsive. LOCATION: chest FINDINGS: Right IJ central line with tip near the cavoatrial junction. No pneumothorax. No new focal pleural or parenchymal opacities. Cardiomediastinal contours are stable. Remainder of the exam is unchanged. CONCLUSION: 1. Right IJ central line in good position without pneumothorax. Todd Young MD on February 04, 2018 at 15:49 Board Certified Radiologist. This report was verified electronically.
[2018-02-04] MEDS: DILTIAZEM HCL 30 MG TAB PO SCH ×2 (17:41→21:25)
--- NOTE | 2018-02-04 17:45 | EKG ---
Date Performed: 02/04/2018 Time Performed: 14:10:42 PTAGE: 82 years EKG: Atrial fibrillation with rapid ventricular response with PVC(s). Lead(s) unsuitable for kris lysis: V2 Left bundle branch block Abnormal ECG PREVIOUS TRACING : 02/03/2018 20.33 Compared to previous tracing, atrial fibrillation has repla rupa Sinus rhythm . DOCTOR: Rizwan Cummings Interpretating Date/Time 02/04/2018 17:44:08
--- NOTE | 2018-02-04 19:09 | HHI.PR ---
Addendum to Inpatient Note Additional Information seen around 1830 full note to follow dw Stephanie Winn MD February 04, 2018 19:09
--- NOTE | 2018-02-04 19:19 | PD.ID.CON ---
History of Present Illness Service ID Consult Requested By Dr Modi Reason for Consult sepsis, multiple wounds Primary Care Physician Unknown Diagnoses: History of Present Illness 82 F unable to provide any history She lives alone and was found down presumably she was down x 2-3 days Her pressure wounds that are consistent with being on the floor for several days and she was covered in urine and feces. On arrival hypotensive, successfully fluid resusciattated Very dry, Na in 150s, ARF with creatinine of 1.58 UA abnnormal cw UTI and now growing a GNB Multiple nbecrotic appearing wounds cw pressure ulcers started on vanco, zosyn Review of Systems ROS Limitations: Altered Mental Status (confused), Poor Historian Past Family Social History Allergies: Coded Allergies: No Known Allergies (Verified Allergy, Unknown, 02/03/18) Past Medical History HTN HLD poor vision Hard of hearing Mild memory deficit per her daughter Past Surgical History gastric bypass appy hysterectomy ORIF trimalleolar fracture of the Right ankle 11/03/2004. Active Ordered Medications Medications where reviewed in EMR Antibiotics Include: zosyn, vanco Family History Mom late 70s or early 80s of unknown causes Dad of MS in late 70s. Social History Former smoker quit 35-40 years ago. Never drank alcohol. Never substance abuse Lives alone. Her daughter says she believes she has a living will. No longer driving. Physical Exam Vital Signs Vital Signs Date Time Temp Pulse Resp B/P (MAP) Pulse Ox O2 Delivery O2 Flow Rate FiO2 02/04/18 18:00 133 02/04/18 16:00 114 02/04/18 16:00 98.0 114 15 95/49 (64) 99 02/04/18 14:30 130 129/64 02/04/18 14:00 130 02/04/18 12:00 97.8 114 22 124/73 (90) 99 02/04/18 12:00 114 02/04/18 10:00 92 02/04/18 09:13 16 02/04/18 08:30 100 Nasal Cannula 2.00 02/04/18 08:30 95 Nasal Cannula 2.00 02/04/18 08:00 83 02/04/18 08:00 97.7 83 17 123/71 (88) 100 02/04/18 06:59 78 02/04/18 06:00 80 02/04/18 04:00 80 02/04/18 04:00 98.1 83 18 102/58 (73) 94 02/04/18 03:56 100 Nasal Cannula 2.00 02/04/18 02:00 75 02/04/18 00:00 76 24 113/66 (82) 94 02/04/18 00:00 76 02/03/18 22:00 84 02/03/18 20:45 98 Nasal Cannula 2.00 02/03/18 20:45 98.4 88 26 112/49 (70) 98 02/03/18 20:00 88 02/03/18 19:39 100 Nasal Cannula 3.00 02/03/18 19:22 87 16 124/81 (95) 99 Nasal Cannula 2.00 Physical Exam CONSTITUTIONAL/GENERAL: This is an adequately nourished patient, in no apparent distress. TUBES/LINES/DRAINS: SKIN: No jaundice, rashes, . Multiple ecchymoses abdomen, R breast. Back eschar , dry noted. No open wounds seen Skin temperature appropriate. Not diaphoretic. HEAD: Atraumatic. Normocephalic. EYES: Pupils equal and round and reactive. Extraocular motions intact. No scleral icterus. No injection or drainage. Fundi not examined. ENT: Hearing grossly normal. Nose without bleeding or purulent drainage. Throat without visible erythema, exudates, masses, or lesions. NECK: Trachea midline. Supple, nontender. No palpable thyroid enlargement or nodularity. CARDIOVASCULAR: Regular rate and rhythm without murmurs, gallops, or rubs. No JVD. Peripheral pulses symmetric. RESPIRATORY/CHEST: Symmetric, unlabored respirations. Clear to auscultation. Breath sounds equal bilaterally. No wheezes, rales, or rhonchi. GASTROINTESTINAL: Abdomen soft, non-tender, nondistended. No hepato-splenomegaly , or palpable masses. No guarding. Bowel sounds present. GENITOURINARY: Without palpable bladder distension. Wren catheter in place with yellow urine MUSCULOSKELETAL: Extremities without clubbing, cyanosis, 1+edema. No joint tenderness or effusion noted. No calf tenderness. No mottling or clubbing. LYMPHATICS: No palpable cervical or supraclavicular adenopathy. NEUROLOGICAL: Awake and alert. Very confused Motor and sensory grossly within normal limits. Not follows commands. Incoherent speech . Moves all extremities. PSYCHIATRIC: unable to assess Laboratory Laboratory Tests Test 02/03/18 19:38 02/03/18 20:44 02/03/18 21:17 02/04/18 04:30 Blood Gas Puncture Site RT RADIAL Blood Gas Patient Temperature 98.6 Blood Gas HCO3 20 Blood Gas Base Excess -3.9 Blood Gas Oxygen Saturation 98 Arterial Blood pH 7.42 Arterial Blood Partial Pressure CO2 31 Arterial Blood Partial Pressure O2 154 Arterial Blood Oxygen Content 18.6 Arterial Blood Carboxyhemoglobin 0.9 Arterial Blood Methemoglobin 0.6 Blood Gas Hemoglobin 13.4 Oxygen Delivery Device NASAL CANNULA Blood Gas Liter Flow 3 Nasal Screen MRSA (PCR) MRSA NOT DETECTED Blood Urea Nitrogen 87 Creatinine 1.45 Random Glucose 148 Calcium Level 8.0 Sodium Level 156 Potassium Level 4.0 Chloride Level 127 Carbon Dioxide Level 20.4 Anion Gap 9 Estimat Glomerular Filtration Rate 35 Troponin I 0.02 LESS THAN 0.02 White Blood Count 15.3 Red Blood Count 4.78 Hemoglobin 13.9 Hematocrit 43.8 Mean Corpuscular Volume 91.7 Mean Corpuscular Hemoglobin 29.1 Mean Corpuscular Hemoglobin Concent 31.7 Red Cell Distribution Width 15.1 Platelet Count 147 Mean Platelet Volume 9.6 Neutrophils (%) (Auto) 78.8 Lymphocytes (%) (Auto) 10.7 Monocytes (%) (Auto) 9.4 Eosinophils (%) (Auto) 0.8 Basophils (%) (Auto) 0.3 Neutrophils # (Auto) 12.1 Lymphocytes # (Auto) 1.6 Monocytes # (Auto) 1.4 Eosinophils # (Auto) 0.1 Basophils # (Auto) 0.0 CBC Comment DIFF FINAL Differential Comment Test 02/04/18 12:08 02/04/18 13:45 Blood Urea Nitrogen 75 77 Creatinine 1.48 1.44 Random Glucose 167 180 Total Protein 6.1 Albumin 2.3 Calcium Level 8.0 8.2 Phosphorus Level 3.5 Magnesium Level 2.6 Alkaline Phosphatase 152 Aspartate Amino Transf (AST/SGOT) 129 Alanine Aminotransferase (ALT/SGPT) 59 Total Bilirubin 1.4 Sodium Level 159 156 Potassium Level 3.8 3.4 Chloride Level 125 125 Carbon Dioxide Level 20.6 21.0 Anion Gap 13 10 Estimat Glomerular Filtration Rate 34 35 Serum Osmolality 354 Total Creatine Kinase 442 Creatine Kinase MB 8.6 Creatine Kinase MB % 1.9 Date/Time Source Procedure Growth Status 02/03/18 14:25 Blood Peripheral Aerobic Blood Culture - Preliminary NO GROWTH IN 1 DAY Resulted 02/03/18 14:25 Blood Peripheral Anaerobic Blood Culture - Preliminary NO GROWTH IN 1 DAY Resulted 02/03/18 14:23 Urine Catheterized Urine Urine Culture - Preliminary Gram Negative Juanjose Resulted 02/04/18 13:30 Wound Hip Gram Stain Pending Received 02/04/18 13:30 Wound Hip Wound Culture Pending Received Result Diagram: 02/04/18 0430 02/04/18 1345 Imaging Last Impressions Chest X-Ray 02/04/18 1500 Signed Impressions: Service Date/Time: Sunday, February 04, 2018 15:08 - CONCLUSION: 1. Right IJ central line in good position without pneumothorax. Todd Young MD Renal Ultrasound 02/04/18 0000 Signed Impressions: Service Date/Time: Sunday, February 04, 2018 08:09 - CONCLUSION: 1. No evidence of hydronephrosis the right kidney. 2. Left kidney is not visualized. Slim Pizano MD Pelvis X-Ray 02/03/18 1348 Signed Impressions: Service Date/Time: Saturday, February 03, 2018 15:01 - CONCLUSION: 1. No acute fracture or dislocation. Todd Young MD Head CT 02/03/18 1348 Signed Impressions: Service Date/Time: Saturday, February 03, 2018 14:27 - CONCLUSION: 1. Senescent changes without acute intracranial abnormality. Todd Young MD Assessment and Plan Assessment and Plan Found down Sepsis is most likely reasdon for her AMS UTI appears to be the source of sepsis GNB UTI Pressuure wounds, cont zosyn, vanco for now will fu P CT studies (abd/pel/chest) further abx adjustement per final clx Discussed Condition With Stephanie Winn MD February 04, 2018 19:19
--- NOTE | 2018-02-04 20:27 | RADRPT ---
EXAM DATE/TIME: 02/04/2018 20:04 [facility] COMPARISON: No previous studies available for comparison. INDICATIONS : Right breast excoriation. Spesis. RADIATION DOSE: 19.09 CTDIvol (mGy) ; Combined studies - Thorax/Abdomen/Pelvis MEDICAL HISTORY : Cardiovascular disease. Hypertension. SURGICAL HISTORY : Appendectomy. Hysterectomy.Gastric bypass. ENCOUNTER: Initial ACUITY: 1 day PAIN SCALE: 0/10 LOCATION: chest TECHNIQUE: Volumetric scanning of the chest was performed. Using automated exposure control and adjustment of t he mA and/or kV according to patient size, radiation dose was kept as low as reasonably achievable to obtain optimal diagnostic quality images. DICOM format image data is available electronically for r eview and comparison. Follow-up recommendations for detected pulmonary nodules are based at a minimum on nodule size and pa tient risk factors according to Fleischner Society Guidelines. FINDINGS: LUNGS: Mild groundglass opacities at the lung bases, more prominently on the left. PLEURAE: There is no pleural thickening or pleural effusion. MEDIASTINUM: Dense mitral valve calcifications. Coronary artery calcifications. Very trace anterior pericardial ef fusion. Multiple nodules in the left thyroid gland with extensive calcifications. Prominent main pulm onary artery measuring up to 4.4 cm. No significant mediastinal adenopathy. AXILLAE: Within normal limits. No lymphadenopathy. MUSCULOSKELETAL: Degenerative spondylosis of the thoracic spine. Probable multiple vertebral body hemangiomas. CONCLUSION: 1. Minimal left lung base atelectasis. 2. Trace anterior pericardial effusion. 3. Prominent main pulmonary artery consistent with some degree of pulmonary artery hypertension. Todd Young MD on February 04, 2018 at 20:22 Board Certified Radiologist. This report was verified electronically.
--- NOTE | 2018-02-04 20:35 | RADRPT ---
EXAM DATE/TIME: 02/04/2018 20:04 [facility] COMPARISON: US KIDNEY/RENAL/BLADDER, February 04, 2018, 8:09. INDICATIONS : Acute renal failure, severe UTI, right hit decubitus ulcer. ORAL CONTRAST: Prescribed oral contrast ingested. RADIATION DOSE: 19.09 CTDIvol (mGy) ; Combined studies - Thorax/Abdomen/Pelvis MEDICAL HISTORY : Cardiovascular disease. Hypertension. SURGICAL HISTORY : Appendectomy. Hysterectomy.Gastric bypass. ENCOUNTER: Initial ACUITY: 1 day PAIN SCALE: 0/10 LOCATION: Abdomen. TECHNIQUE: Volumetric scanning of the abdomen and pelvis was performed. Using automated exposure control and adjustment of the mA and/or kV according to patient size, radiation dose was kept as low as reasonably achievable to obtain optimal diagnostic quality images. DICOM format image data is av ailable electronically for review and comparison. FINDINGS: LIVER: Homogeneous density without lesion. There is no dilation of the biliary tree. Gallbladder is severely distended without calcified gallstones. SPLEEN: Normal size without lesion. Multiple surgical clips in the left upper quadrant. PANCREAS: Within normal limits. KIDNEYS: Multiple apparent bilateral parapelvic cysts. No radiopaque renal calculi or definite hy dronephrosis. There is retroperitoneal high density stranding extending from the inferior lizzette-nephri c region along the anterior psoas. ADRENAL GLANDS: Within normal limits. VASCULAR: There is no aortic aneurysm. BOWEL/MESENTERY: Moderate amount of stool in the rectum. Small bowel is normal in caliber without evidence for obstruction. No free air. ABDOMINAL WALL: Within normal limits. RETROPERITONEUM: There is no lymphadenopathy. BLADDER: Decompressed secondary to Wren catheter. REPRODUCTIVE: Within normal limits. INGUINAL: There is no lymphadenopathy or hernia. MUSCULOSKELETAL: Compression fracture of the L2 and L3 vertebral bodies with suspected hemangioma at both levels. Degenerative spondylosis of the lumbar spine. CONCLUSION: 1. Retroperitoneal high density stranding extending from the inferior perinephric region along the an terior psoas consistent with retroperitoneal hematoma. Uncertain if this originates from or abuts the kidney although suspect the latter. 2. Markedly distended gallbladder otherwise appears unremarkable by CT. Consider HIDA scan if there i s significant clinical concern regarding cystic duct obstruction. 3. Moderate stool in the rectum. 4. Compression fractures of L2 and L3 vertebral bodies of unknown chronicity. Todd Young MD on February 04, 2018 at 20:25 Board Certified Radiologist. This report was verified electronically.
--- NOTE | 2018-02-04 21:09 | EKG ---
Date Performed: 02/03/2018 Time Performed: 20:33:18 PTAGE: 82 years EKG: Sinus rhythm with PAC(s) Left bundle branch block Abnormal ECG PREVIOUS TRACING : 02/03/2018 13.45 Compared to previous tracing, SINUS TACHYCARDIA IS NO LONG ER PRESENT DOCTOR: Zachariah Randle Interpretating Date/Time 02/04/2018 21:08:33
[2018-02-04] MEDS: FAMOTIDINE 20 MG TAB PO SCH (21:25)
[2018-02-04] MEDS: DIGOXIN 0.5 MG/2 ML VIAL IV PUSH SCH (21:26)
--- NOTE | 2018-02-04 21:35 | EKG ---
Date Performed: 02/03/2018 Time Performed: 13:45:55 PTAGE: 82 years EKG: SINUS TACHYCARDIA INTRAVENTRICULAR CONDUCTION DELAY ABNORMAL ECG INTERPRETATION BASED ON A DEFAULT AGE OF 40 YEARS NO PREVIOUS TRACING DOCTOR: Zachariah Randle Interpretating Date/Time 02/04/2018 21:34:56
[2018-02-05] VITALS (13 sets, daily range): BP systolic 100–127; BP diastolic 50–69; PULSE 83–152; RESP 16–29; TEMP 97.2–98.8; O2SAT 93–100
[2018-02-05] MEDS: PIPERACIL-TAZO 3.375 GM PREMIX 50 ML IV SCH ×5 (00:24→22:01)
[2018-02-05 00:36] LABS: HEMATOCRIT 38.4 % (35.0-46.0); HEMOGLOBIN 12.4 GM/DL (11.6-15.3)
[2018-02-05] MEDS: CHLORHEXIDINE GLUCONATE 2 % 1 PACK (2 CLOTHS) TOP SCH (04:00)
[2018-02-05] MEDS: RESP: ALBUTEROL 2.5 MG/IPRATROPIUM 0.5 MG NEB (SCH) INH ×4 (04:08→19:52)
[2018-02-05] MEDS ORDERED: GLYCERIN ADULT 2 GM SUPP RECTAL ONE (06:30)
[2018-02-05] MEDS ORDERED: MORPHINE SULFATE 4 MG/ML INJ IV PRN ×2 (06:30→06:45)
--- NOTE | 2018-02-05 06:30 | HHI.CCPN ---
Subjective Remarks/Hospital Course 82-year-old female who is brought to [facility] emergency department after she was found down on the floor of her kitchen. She was unable to recall circumstances of the fall but is confused. She has pressure wounds that are consistent with being on the floor for several days and she was covered in urine and feces. Her daughter last saw her on Monday 6 days ago and had not been in contact with her since. Her daughter states she has had trip and falls several times in the past and has been unable to get herself up. She was hypotensive with blood pressures in the 60s when [facility] arrived. They placed a peripheral IV and started 1 L normal saline bolus. An additional 1 L normal saline bolus was ordered. ED workup reveals urinalysis consistent with UTI, acute kidney injury with creatinine of 1.58 and sodium 157. She received Zosyn. Her blood pressure is now 113/58 with heart rate 119. 5/20: Remains encephalopathic/delirious this a.m. moaning and requesting for "water". She is currently afebrile. Afebrile. No bowel movement. Becomes tachycardic when moves secondary to pain Subjective 02/05: Remains in A. fib with RVR. Received 2 doses of digoxin 0.25 mg IV overnight. A.m. digoxin level pending. On scheduled diltiazem 30 mg 4 times daily. Troponin 0 0.03. TSH 0.87. A.m. laboratories all pending. Confused A. MRI brain ordered. Noted CT abdomen/pelvis revealed a retroperitoneal hematoma. Heparin subcutaneous.. Hemoglobin stable. Remains on phenylephrine drip at 45 mcg/min Objective Vital Signs Date Time Temp Pulse Resp B/P (MAP) Pulse Ox O2 Delivery O2 Flow Rate FiO2 02/05/18 04:00 97.2 109 16 104/50 (68) 100 02/04/18 22:00 Nasal Cannula 2.00 Result Diagram: 02/05/18 0000 02/04/18 1345 Other Results Microbiology Date/Time Source Procedure Growth Status 02/03/18 14:25 Blood Peripheral Aerobic Blood Culture - Preliminary NO GROWTH IN 1 DAY Resulted 02/03/18 14:25 Blood Peripheral Anaerobic Blood Culture - Preliminary NO GROWTH IN 1 DAY Resulted 02/03/18 14:23 Urine Catheterized Urine Urine Culture - Preliminary Gram Negative Juanjose Resulted 02/04/18 13:30 Wound Hip Gram Stain Pending Received 02/04/18 13:30 Wound Hip Wound Culture Pending Received Imaging Last Impressions Chest X-Ray 02/04/18 1500 Signed Impressions: Service Date/Time: Sunday, February 04, 2018 15:08 - CONCLUSION: 1. Right IJ central line in good position without pneumothorax. Todd Young MD Renal Ultrasound 02/04/18 0000 Signed Impressions: Service Date/Time: Sunday, February 04, 2018 08:09 - CONCLUSION: 1. No evidence of hydronephrosis the right kidney. 2. Left kidney is not visualized. Slim Pizano MD Chest CT 02/04/18 0000 Signed Impressions: Service Date/Time: Sunday, February 04, 2018 20:04 - CONCLUSION: 1. Minimal left lung base atelectasis. 2. Trace anterior pericardial effusion. 3. Prominent main pulmonary artery consistent with some degree of pulmonary artery hypertension. Todd Young MD Abdomen/Pelvis CT 02/04/18 0000 Signed Impressions: Service Date/Time: Sunday, February 04, 2018 20:04 - CONCLUSION: 1. Retroperitoneal high density stranding extending from the inferior perinephric region along the anterior psoas consistent with retroperitoneal hematoma. Uncertain if this originates from or abuts the kidney although suspect the latter. 2. Markedly distended gallbladder otherwise appears unremarkable by CT. Consider HIDA scan if there is significant clinical concern regarding cystic duct obstruction. 3. Moderate stool in the rectum. 4. Compression fractures of L2 and L3 vertebral bodies of unknown chronicity. Todd Young MD Pelvis X-Ray 02/03/18 1348 Signed Impressions: Service Date/Time: Saturday, February 03, 2018 15:01 - CONCLUSION: 1. No acute fracture or dislocation. Todd Young MD Head CT 02/03/18 1348 Signed Impressions: Service Date/Time: Saturday, February 03, 2018 14:27 - CONCLUSION: 1. Senescent changes without acute intracranial abnormality. Todd Young MD Objective Remarks GENERAL: 82-year-old female currently resting in bed in mild distress secondary to pain SKIN: Warm and dry. There is a pressure ulceration of right breast including Areola with multiple excoriations/scratching. Anterior abdomen has linear pressure wound with some surrounding erythema,, medial aspect of left first metatarsal,~6 cm ulceration medial aspect of left knee. Large stage II to 3 pressure injury of her right hip about 13 x 4 cm with foul-smelling output. HEAD: Atraumatic. Normocephalic. EYES: Pupils equal and round, 2 mm and reactive to 1 mm. No scleral icterus. No injection or drainage. ENT: No nasal bleeding or discharge. Mucous membranes dry NECK: Trachea midline. No JVD. CARDIOVASCULAR: Tachycardic, RR. S1, S2 no S4. Without murmur RESPIRATORY: Essentially clear to auscultation without wheezes rales rhonchi GASTROINTESTINAL: Abdomen soft, non-tender, nondistended. Bowel sounds are present MUSCULOSKELETAL: Extremities trace to 1+ bilateral lower extremity nonpitting edema.. History of fourth right finger partial amputation NEUROLOGICAL: Awake and requesting water. Moves all 4 extremities spontaneously. Urinary Catheter: Yes Assessment to: Continue Wren insert reason: Prolonged Immobilization Vascular Central Line Catheter: Yes Assessment to: Continue Date of Insertion: February 04, 2018 Line: Central Venous Catheter Side: Right Location: Internal, Jugular A/P Assessment and Plan NEURO/PSYCH: Acute toxic metabolic encephalopathy Hard of hearing Presbycusis Underlying dementia disorder? CT brain 02/03 shows diffuse moderate atrophy but no acute changes. Ammonia level was less than 10 Acetaminophen 650 mg p.o. every 6 hours as needed fever Morphine sulfate 1 mg IV every 3 hours pain 1 through 5 Morphine sulfate 2 mg IV every 3 hours as needed pain 6 - 10 RESP: History of tobaccoism Nasal cannula to maintain saturations greater than or equal to 92% Incentive spirometry while awake Albuterol/ipratropium aerosols every 6 hours with albuterol aerosols every 2 hours as needed dyspnea CXR in a.m. 02/04 revealed no acute cardiopulmonary findings CT thorax 02/04 revealed minimal left basilar atelectasis. Trace anterior pericardial effusion. Prominent pulmonary arteries CV: Severe sepsis likely secondary to multiple pressure ulcers Lactic acidemia resolved Essential HTN at baseline Hyperlipidemia. A. fib with RVR Hold losartan unknown dosage due to acute kidney injury Hold amlodipine 5 mg daily as BP was low Holding pravastatin due to muscle breakdown Initial troponin negative. Will follow serial troponins. Received 2 L normal saline bolus. Currently on phenylephrine drip at 45 mcg/min to maintain mean atrial pressure greater than or equal to 65 Scheduled oral diltiazem 30 mg p.o. 4 times daily Received 0.5 mg total of IV digoxin overnight. A.m. level pending Routine limited 2D echocardiogram ordered A.m. electrolytes pending. TSH 0.87 Continue IV fluids to quarter normal saline at 150 cc an hour see orders GI: Hypoalbuminemia Elevated transaminases Retroperitoneal hematoma/anterior psoas muscle Speech therapy evaluate and treat Clear liquid diet Famotidine for GI prophylaxis Docusate sodium/senna 1 tablet twice daily for bowel regimen FEN/RENAL: Hyperosmolar hypernatremia Acute kidney injury creatinine currently 1.45 We will switch to one quarter normal saline at 125 cc an hour Check serum/urine osm Recheck sodium 1800 hrs. A.m. laboratories still pending Left kidney is not identified. No hydronephrosis on right side on renal ultrasound CT abdomen/pelvis revealed bilateral. Calyces cyst. Retroperitoneal hematoma. Check urine electrolytes and eosinophils pending ID: Severe sepsis Multiple pressure wounds, ?cellulitis abdomen. UTI -gram-negative juanjose Day #3 piperacillin/tazobactam and vancomycin Follow-up blood and urine cultures. -Blood cultures no growth to date with urine gram-negative juanjose CT thorax/abdomen pelvis when appropriate/patient stabilized Infectious disease consultation HEME: Leukocytosis Thrombocytopenia Monitor CBC daily. Follow trend No indication for transfusion of blood products at this time ENDO: Stress hyperglycemia TSH 0.87 Sliding scale insulin with Accu-Cheks to maintain euglycemia with Novulog MSK: Grade 2-3 pressure injury to right hip Grade 2 pressure injury to right breast Elevated BMI Osteoporosis/osteoarthritis Wound care evaluate and treat Currently keeping right 13 x 4 cm decubitus pressure injury wet-to-dry changes PT evaluate and treat Weight loss encouraged PROPH: SCD/holding pharmacological prophylaxis secondary to retroperitoneal hematoma. Famotidine for stress ulcer prophylaxis. ACCESS: Right IJ CVL day #2 placed 02/04. Right femoral arterial line day #2 placed 02/04 Level 2 follow-up Yomi Modi MD February 05, 2018 06:30
[2018-02-05] MEDS ORDERED: PADIMATE (CHAPSTICK) 4.5 GM TUBE TOPICAL PRN (07:00)
[2018-02-05] MEDS: INSULIN ASPART SUPPLEMENTAL SCALE SQ SCH ×4 (08:00→21:00)
[2018-02-05] MEDS: DOCUSATE SODIUM 50 MG/SENNA 8.6 MG TAB PO SCH ×2 (08:26→21:22)
[2018-02-05] MEDS: SODIUM CHLORIDE 0.9% FLUSH 10 ML FLUSH IV FLUSH SCH ×3 (08:26→21:22)
[2018-02-05] MEDS: DIGOXIN 0.5 MG/2 ML VIAL IV PUSH SCH (08:26)
[2018-02-05] MEDS: SODIUM CHLORIDE 23.4% INJ 38.5 MEQ in WATER STERILE FOR INJ 1,000 ML IV SCH ×2 (08:27→10:24)
[2018-02-05] MEDS ORDERED: DILTIAZEM HCL 30 MG TAB PO SCH (09:00)
[2018-02-05 11:44] LABS: AUTOMATED NEUTROPHIL # 11.1 TH/MM3 (1.8-7.7); BASOPHIL % 0.2 % (0.0-2.0); EOSINOPHIL # 0.2 TH/MM3 (0-0.4); EOSINOPHIL % 1.3 % (0.0-4.0); HEMATOCRIT 38.1 % (35.0-46.0); HEMOGLOBIN 12.3 GM/DL (11.6-15.3); LYMPHOCYTE # 1.5 TH/MM3 (1.0-4.8); MEAN CELL VOLUME 89.5 FL (80.0-100.0); MEAN CORPUSCULAR HEMOGLOBIN 28.8 PG (27.0-34.0); MEAN CORPUSCULAR HGB CONC 32.1 % (32.0-36.0); MEAN PLATELET VOLUME 9.7 FL (7.0-11.0); MONO % 6.8 % (0.0-8.0); MONOCYTE # 0.9 TH/MM3 (0-0.9); NEUT % 80.7 % (16.0-70.0); PLATELET COUNT 185 TH/MM3 (150-450); RED BLOOD COUNT 4.26 MIL/MM3 (4.00-5.30); RED CELL DISTRIBUTION WIDTH 14.7 % (11.6-17.2); WHITE BLOOD COUNT 13.7 TH/MM3 (4.0-11.0)
[2018-02-05 12:02] LABS: INTERNATIONAL NORMALIZED RATIO 1.1 RATIO; PROTHROMBIN TIME - PATIENT 11.1 SEC (9.8-11.6)
[2018-02-05] MEDS: DILTIAZEM HCL 60 MG TAB PO SCH ×3 (12:10→21:22)
--- NOTE | 2018-02-05 12:17 | MB ---
cc: Rodolfo Jim MD DATE: 02/05/2018 CHIEF COMPLAINT: Management of atrial fibrillation. HISTORY OF PRESENT ILLNESS: Elaine Todd is an 82-year-old woman admitted to the hospital 2 days ago. Apparently, she was found on the floor covered in urine and feces and she may have been there as long as 6 days, we don't know. 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 The patient is confused. When I talked to, I cannot elicit any specific complaints. PAST MEDICAL HISTORY: Includes: Aortic valve sclerosis, coronary artery disease with a previous nuclear stress test showing mild to moderate basal anteroseptal ischemia, COPD, esophageal reflux, hypertension, chronic left bundle branch block, compression fracture L2-L3, hard of hearing, diminished vision, obesity, osteoarthritis, and osteoporosis. PAST SURGICAL HISTORY: Includes: Gastric bypass surgery, appendectomy, hysterectomy, ORIF right ankle 10/24/2004. SOCIAL HISTORY: Quit smoking 35 to 40 years ago. FAMILY HISTORY: Father of an AL in his 70s. ALLERGIES: NONE KNOWN. PHYSICAL EXAMINATION: GENERAL: This is an elderly white female. TELEMETRY: Reviewing telemetry, she has been in and out of atrial fibrillation with rapid rates currently in sinus rhythm. HEENT: Unremarkable. NECK: No JVD. No bruits. CHEST: Clear to auscultation. CARDIA: S1, S2, regular rate and rhythm with a grade 2/6 systolic ejection murmur. ABDOMEN: Soft. EXTREMITIES: Reveal slight pedal edema. EKG shows alternating atrial fibrillation, sinus rhythm with left bundle branch block. LABS: Charted. IMPRESSION: Intermittent atrial fibrillation with a rapid ventricular response. PLAN: I am going to increase her diltiazem from 30 q. 6 to 60 q. 6 hours. We will discontinue digoxin. I will follow with you. A 2-D echo is pending. Further therapy to be determined. Rodolfo Jim MD VEW/DL , 11:22 AM , 12:15 PM
[2018-02-05 12:37] LABS: DIGOXIN 1.6 NG/ML (0.8-2.0)
[2018-02-05 12:43] LABS: ALKALINE PHOSPHATASE 204 U/L (45-117); ALT (GPT) 96 U/L (10-53); AST (GOT) 156 U/L (15-37); BICARBONATE 19.8 MEQ/L (21.0-32.0); BLOOD UREA NITROGEN 36 MG/DL (7-18); CALCIUM 7.9 MG/DL (8.5-10.1); CHLORIDE 115 MEQ/L (98-107); CHOLESTEROL 116 MG/DL (120-200); CHOLESTEROL/ HDL RATIO 3.15 RATIO; CREATININE 0.82 MG/DL (0.50-1.00); GLOMERULAR FILTRATION RATE 67 ML/MIN (>89); GLUCOSE,RANDOM 182 MG/DL (74-106); HDL CHOLESTEROL 36.8 MG/DL (40.0-60.0); LDL CHOLESTEROL 51 MG/DL (0-99); PHOSPHORUS 2.3 MG/DL (2.5-4.9); RANDOM VANCOMYCIN 5.1 COMMENT; SODIUM (NA) 147 MEQ/L (136-145); TOTAL BILIRUBIN ADULT 0.9 MG/DL (0.2-1.0); TOTAL PROTEIN 5.4 GM/DL (6.4-8.2); TRIGLYCERIDES 142 MG/DL (42-150); TROPONIN I 0.06 NG/ML (0.02-0.05)
[2018-02-05] MEDS ORDERED: POTASSIUM CHLOR 40 MEQ PREMIX 100 ML IV ONE (14:00)
[2018-02-05] MEDS ORDERED: POTASSIUM PHOSPHATE INJ 30 MMOL in SODIUM CHLOR 0.9% 250 ML INJ 250 ML IV ONE (15:00)
[2018-02-05] MEDS ORDERED: VANCOMYCIN 1,500 MG/NS 500 ML IV SCH ×2 (15:00)
[2018-02-05] MEDS: SODIUM CHLOR 0.9% 1000 ML INJ 1,000 ML IV SCH (16:51)
--- NOTE | 2018-02-05 17:25 | PD.WCN.NOT ---
Wound Consult Description: Consult PER PROTOCOL for PRESSURE ULCER to right breast, right hip, left toes 2, 3,4, and left knee admitted with these ulcers. Communicated with: DAV Karimi Dr Recommendation: Left medial foot and knee Deep Tissue Injury: 1. [place] Cavilon skin barrier film BID and leave open to air & free from pressure. Right hip Deep Tissue Injury Q3D and PRN for saturation or dislodgement: 1. Cleanse with wound cleanser and pat dry with gauze. 2. Apply MAXORB EXTRA AG over wound bed. 3. [place] periwound with Cavilon skin barrier film and allow to dry. 4. Cover and secure Maxorb Extra Ag with bordered gauze dressing (primapore). May continue to apply Calazime to abdomen and right breast eschars and gluteal fissures BID and PRN to keep dry. IF able to gently remove the Calazime currently in place over abdomen and breast: Recommend to spray eschars with Cavilon barrier film spray BID and PRN and leave open to air. (Cavilon is not as messy and will also keep eschars dry) Additional Information: Patient seen on with DAV Karimi and patient daughter at bedside during assessment. Strong urine odor noted when approaching patient. All toes visualized and noted to be unremarkable. Left foot medial 1st met head noted with a resolving DTI measuring <1cm circumferentially that was a dissipating dark maroon non blanching discoloration with intact skin. This was sprayed with Cavilon skin barrier film and left open to air. Left medial knee visualized with a non blanching purple discoloration (DTI) surrounded by fluid filled bulla measuring 5.7cm x 4.3cm x 0cm. No open areas noted. This was sprayed with Cavilon skin barrier film and left open to air. Right hip visualized with an island of dark purple soft discoloration with a hazy white boggy area surrounding the DTI with partial thickness skin loss noted to peeling denuded periwound. There is no active drainage and no odor from the wound at this time. Wound had previously been slathered in Calazime skin protectant paste that was gently attempted to be removed by cleansing wound with wound cleanser and gauze. Wound measured as one wound 11cm x 9cm x < 0.1cm including the partial thickness skin loss. Periwound was skin prepped using Cavilon skin barrier film. Maxorb Extra AG was applied over the DTI to help dry the wound and provide an antimicrobial absorptive barrier for when the wound does indeed open. Recommend to change dressing every 3 days and PRN for saturation or dislodgement. Abdomen noted with 1cm x 5.2cm x intact eschar with Calazime skin protectant covering eschar and periwound. No open areas visualized. May continue to apply Calazime BID and PRN and leave open to air. Right breast noted with 1.8cm x 1.2cm x intact eschar with Calazime skin protectant covering eschar and periwound. No open areas visualized. May continue to apply Calazime BID and PRN and leave open to air. Patient was positioned to her right side for visualization of buttocks and sacrum with 2 cotton underpads and 2 ultrasorb moisture wicking pads noted underneath patient. 2 Gluteal cleft fissures are noted measuring ~3cm x 0.2cm x 0.2cm with 100% red moist tissue, no active drainage. Calazime skin protectant in use prior to assessment and has previously been applied. Recommend to continue Calazime BID and PRN. Please use caution when buttocks for cleansing/assessing wounds. It was recommended that only 1 underpad be placed underneath patient, 2 staggered is also acceptable. However, 4 underpads underneath patient creates a harder surface for the patient to lay on. Patient is a 2 person assist in repositioning and it is recommended that the bed also be used to assist patient in repositioning and pulling up in bed. Sheryl English [facility] February 05, 2018 17:25
--- NOTE | 2018-02-05 19:29 | HHI.PR ---
Addendum to Inpatient Note Additional Information pt was seen earlier today full note to follow Stephanie Bowers MD February 05, 2018 19:29
[2018-02-05 19:30] LABS: HEMOGLOBIN 11.4 GM/DL (11.6-15.3)
[2018-02-05] MEDS: FAMOTIDINE 20 MG TAB PO SCH (21:22)
--- NOTE | 2018-02-05 23:27 | HHI.IDPN ---
Subjective Subjective Remarks delayed entry Pt was seen earlier today Pt is very confused and agitated Refusing nebs Antibiotics syn vanco Allergies: Coded Allergies: No Known Allergies (Verified Allergy, Unknown, 02/03/18) Objective . Vital Signs Date Time Temp Pulse Resp B/P (MAP) Pulse Ox O2 Delivery O2 Flow Rate FiO2 02/05/18 22:00 92 02/05/18 20:00 93 02/05/18 20:00 97.6 93 21 114/69 (84) 99 Arterial Line 02/05/18 19:00 98 Nasal Cannula 2.00 02/05/18 18:00 94 02/05/18 16:00 83 02/05/18 16:00 98.5 83 19 113/53 (73) 93 02/05/18 14:00 99 02/05/18 12:00 99 02/05/18 12:00 98.8 99 21 127/64 (85) 96 02/05/18 10:00 100 02/05/18 09:02 95 Nasal Cannula 3.00 02/05/18 08:00 152 02/05/18 08:00 97.9 152 29 100/64 (76) 96 02/05/18 07:00 95 Nasal Cannula 2.00 02/05/18 06:00 90 02/05/18 04:00 97.2 109 16 104/50 (68) 100 02/05/18 04:00 109 02/05/18 02:00 84 02/05/18 00:00 98.3 122 21 114/60 (78) 98 02/05/18 00:00 122 02/05/18 02/05/18 02/06/18 15:00 23:00 07:00 Intake Total 100 ml 1250 ml Output Total 1100 ml Balance 100 ml 150 ml Intake Oral 650 ml IV Total 100 ml 600 ml Output Urine Total 1100 ml # Bowel Movements 0 . Laboratory Tests Test 02/04/18 04:30 02/05/18 00:00 02/05/18 11:24 02/05/18 19:00 White Blood Count 15.3 TH/MM3 13.7 TH/MM3 Red Blood Count 4.78 MIL/MM3 4.26 MIL/MM3 Hemoglobin 13.9 GM/DL 12.4 GM/DL 12.3 GM/DL 11.4 GM/DL Hematocrit 43.8 % 38.4 % 38.1 % 35.0 % Mean Corpuscular Volume 91.7 FL 89.5 FL Mean Corpuscular Hemoglobin 29.1 PG 28.8 PG Mean Corpuscular Hemoglobin Concent 31.7 % 32.1 % Red Cell Distribution Width 15.1 % 14.7 % Platelet Count 147 TH/MM3 185 TH/MM3 Mean Platelet Volume 9.6 FL 9.7 FL Neutrophils (%) (Auto) 78.8 % 80.7 % Lymphocytes (%) (Auto) 10.7 % 11.0 % Monocytes (%) (Auto) 9.4 % 6.8 % Eosinophils (%) (Auto) 0.8 % 1.3 % Basophils (%) (Auto) 0.3 % 0.2 % Neutrophils # (Auto) 12.1 TH/MM3 11.1 TH/MM3 Lymphocytes # (Auto) 1.6 TH/MM3 1.5 TH/MM3 Monocytes # (Auto) 1.4 TH/MM3 0.9 TH/MM3 Eosinophils # (Auto) 0.1 TH/MM3 0.2 TH/MM3 Basophils # (Auto) 0.0 TH/MM3 0.0 TH/MM3 CBC Comment DIFF FINAL DIFF FINAL Differential Comment Laboratory Tests Test 02/04/18 04:30 02/04/18 12:08 02/04/18 13:45 02/04/18 19:10 Troponin I LESS THAN 0.02 NG/ML 0.03 NG/ML Blood Urea Nitrogen 75 MG/DL 77 MG/DL Creatinine 1.48 MG/DL 1.44 MG/DL Random Glucose 167 MG/DL 180 MG/DL Total Protein 6.1 GM/DL Albumin 2.3 GM/DL Calcium Level 8.0 MG/DL 8.2 MG/DL Phosphorus Level 3.5 MG/DL Magnesium Level 2.6 MG/DL Alkaline Phosphatase 152 U/L Aspartate Amino Transf (AST/SGOT) 129 U/L Alanine Aminotransferase (ALT/SGPT) 59 U/L Total Bilirubin 1.4 MG/DL Sodium Level 159 MEQ/L 156 MEQ/L Potassium Level 3.8 MEQ/L 3.4 MEQ/L Chloride Level 125 MEQ/L 125 MEQ/L Carbon Dioxide Level 20.6 MEQ/L 21.0 MEQ/L Anion Gap 13 MEQ/L 10 MEQ/L Estimat Glomerular Filtration Rate 34 ML/MIN 35 ML/MIN Serum Osmolality 354 MOSM/KG Total Creatine Kinase 442 U/L Creatine Kinase MB 8.6 NG/ML Creatine Kinase MB % 1.9 % Test 02/05/18 11:24 Sodium Level 145 MEQ/L Blood Urea Nitrogen 36 MG/DL Creatinine 0.82 MG/DL Random Glucose 182 MG/DL Total Protein 5.4 GM/DL Albumin 2.0 GM/DL Calcium Level 7.9 MG/DL Phosphorus Level 2.3 MG/DL Magnesium Level 2.0 MG/DL Alkaline Phosphatase 204 U/L Aspartate Amino Transf (AST/SGOT) 156 U/L Alanine Aminotransferase (ALT/SGPT) 96 U/L Lactate Dehydrogenase 401 U/L Total Bilirubin 0.9 MG/DL Potassium Level 3.3 MEQ/L Chloride Level 115 MEQ/L Carbon Dioxide Level 19.8 MEQ/L Anion Gap 12 MEQ/L Estimat Glomerular Filtration Rate 67 ML/MIN Lactic Acid Level 1.7 mmol/L Ammonia 33 MCMOL/L Total Creatine Kinase 1419 U/L Creatine Kinase MB 70.5 NG/ML Creatine Kinase MB % 5.0 % Troponin I 0.06 NG/ML Triglycerides Level 142 MG/DL Cholesterol Level 116 MG/DL LDL Cholesterol 51 MG/DL HDL Cholesterol 36.8 MG/DL Cholesterol/HDL Ratio 3.15 RATIO Amylase Level 119 U/L Lipase 349 U/L Random Cortisol 32.4 MCG/DL Microbiology Date/Time Source Procedure Growth Status 02/03/18 14:25 Blood Peripheral Aerobic Blood Culture - Preliminary Staph Sp Coagulase Negative Resulted 02/03/18 14:25 Blood Peripheral Anaerobic Blood Culture - Preliminary NO GROWTH IN 2 DAYS Resulted 02/03/18 13:52 Blood Peripheral Aerobic Blood Culture - Preliminary NO GROWTH IN 2 DAYS Resulted 02/03/18 13:52 Blood Peripheral Anaerobic Blood Culture - Preliminary NO GROWTH IN 2 DAYS Resulted 02/03/18 14:23 Urine Catheterized Urine Urine Culture - Preliminary Escherichia Coli Resulted 02/04/18 13:30 Wound Hip Gram Stain - Final Resulted 02/04/18 13:30 Wound Culture - Preliminary Gram Negative Juanjose Resulted Imaging Last Impressions Chest X-Ray 02/04/18 1500 Signed Impressions: Service Date/Time: Sunday, February 04, 2018 15:08 - CONCLUSION: 1. Right IJ central line in good position without pneumothorax. Todd Young MD Renal Ultrasound 02/04/18 0000 Signed Impressions: Service Date/Time: Sunday, February 04, 2018 08:09 - CONCLUSION: 1. No evidence of hydronephrosis the right kidney. 2. Left kidney is not visualized. Slim Pizano MD Chest CT 02/04/18 0000 Signed Impressions: Service Date/Time: Sunday, February 04, 2018 20:04 - CONCLUSION: 1. Minimal left lung base atelectasis. 2. Trace anterior pericardial effusion. 3. Prominent main pulmonary artery consistent with some degree of pulmonary artery hypertension. Todd Young MD Abdomen/Pelvis CT 02/04/18 0000 Signed Impressions: Service Date/Time: Sunday, February 04, 2018 20:04 - CONCLUSION: 1. Retroperitoneal high density stranding extending from the inferior perinephric region along the anterior psoas consistent with retroperitoneal hematoma. Uncertain if this originates from or abuts the kidney although suspect the latter. 2. Markedly distended gallbladder otherwise appears unremarkable by CT. Consider HIDA scan if there is significant clinical concern regarding cystic duct obstruction. 3. Moderate stool in the rectum. 4. Compression fractures of L2 and L3 vertebral bodies of unknown chronicity. Todd Young MD Pelvis X-Ray 02/03/18 1348 Signed Impressions: Service Date/Time: Saturday, February 03, 2018 15:01 - CONCLUSION: 1. No acute fracture or dislocation. Todd Young MD Head CT 02/03/18 1348 Signed Impressions: Service Date/Time: Saturday, February 03, 2018 14:27 - CONCLUSION: 1. Senescent changes without acute intracranial abnormality. Todd Young MD Physical Exam CONSTITUTIONAL/GENERAL: This is an adequately nourished patient, in no apparent distress. TUBES/LINES/DRAINS: SKIN: No jaundice, rashes, . Multiple ecchymoses abdomen, R breast. Back eschar , dry noted. No open wounds seen Skin temperature appropriate. Not diaphoretic. R hip wound with necrotic skin CARDIOVASCULAR: Regular rate and rhythm without murmurs, gallops, or rubs. No JVD. Peripheral pulses symmetric. RESPIRATORY/CHEST: Symmetric, unlabored respirations. Clear to auscultation. Breath sounds equal bilaterally. No wheezes, rales, or rhonchi. GASTROINTESTINAL: Abdomen soft, non-tender, nondistended. No hepato-splenomegaly , or palpable masses. No guarding. Bowel sounds present. GENITOURINARY: Without palpable bladder distension. Wren catheter in place with yellow urine MUSCULOSKELETAL: Extremities without clubbing, cyanosis, 1+edema. No joint tenderness or effusion noted. No calf tenderness. No mottling or clubbing. LYMPHATICS: No palpable cervical or supraclavicular adenopathy. NEUROLOGICAL: Awake and alert. Very confused Motor and sensory grossly within normal limits. Not follows commands. Incoherent speech . Moves all extremities. PSYCHIATRIC: agitated and combative. very confused Assessment & Plan Remarks Found down Sepsis is most likely reasdon for her AMS UTI appears to be the source of sepsis GNB UTI Pressuure wounds, Low grade coag neg staph bacteremia, likley contaminant Retroperitoneal hemaotoma / traumatic cont zosyn, DC vanco FU HIP WOUND CLX (gnb PREMLIM) further abx adjustement per final clx Discussed Condition With Stephanie Winn MD February 05, 2018 23:27
[2018-02-06] VITALS (13 sets, daily range): BP systolic 99–124; BP diastolic 51–60; PULSE 75–93; RESP 17–21; TEMP 97.5–97.9; O2SAT 94–100
[2018-02-06] MEDS: SODIUM CHLOR 0.9% 1000 ML INJ 1,000 ML IV SCH (01:10)
[2018-02-06] MEDS: RESP: ALBUTEROL 2.5 MG/IPRATROPIUM 0.5 MG NEB (SCH) INH ×4 (04:00→20:30)
[2018-02-06] MEDS: CHLORHEXIDINE GLUCONATE 2 % 1 PACK (2 CLOTHS) TOP SCH (04:00)
[2018-02-06] MEDS: PIPERACIL-TAZO 3.375 GM PREMIX 50 ML IV SCH ×3 (04:20→18:02)
[2018-02-06 04:54] LABS: AUTOMATED NEUTROPHIL # 7.3 TH/MM3 (1.8-7.7); BASOPHIL % 0.4 % (0.0-2.0); EOSINOPHIL # 0.2 TH/MM3 (0-0.4); EOSINOPHIL % 2.1 % (0.0-4.0); HEMATOCRIT 33.2 % (35.0-46.0); HEMOGLOBIN 11.1 GM/DL (11.6-15.3); LYMPH % 13.5 % (9.0-44.0); LYMPHOCYTE # 1.3 TH/MM3 (1.0-4.8); MEAN CORPUSCULAR HEMOGLOBIN 29.6 PG (27.0-34.0); MEAN CORPUSCULAR HGB CONC 33.3 % (32.0-36.0); MEAN PLATELET VOLUME 9.5 FL (7.0-11.0); MONO % 7.2 % (0.0-8.0); MONOCYTE # 0.7 TH/MM3 (0-0.9); NEUT % 76.8 % (16.0-70.0); PLATELET COUNT 141 TH/MM3 (150-450); RED BLOOD COUNT 3.73 MIL/MM3 (4.00-5.30); RED CELL DISTRIBUTION WIDTH 14.4 % (11.6-17.2); WHITE BLOOD COUNT 9.6 TH/MM3 (4.0-11.0)
[2018-02-06 05:18] LABS: ALBUMIN 1.9 GM/DL (3.4-5.0); ALKALINE PHOSPHATASE 153 U/L (45-117); ALT (GPT) 88 U/L (10-53); AST (GOT) 167 U/L (15-37); BICARBONATE 23.9 MEQ/L (21.0-32.0); BLOOD UREA NITROGEN 24 MG/DL (7-18); CALCIUM 7.6 MG/DL (8.5-10.1); CHLORIDE 116 MEQ/L (98-107); GLOMERULAR FILTRATION RATE 96 ML/MIN (>89); GLUCOSE,RANDOM 110 MG/DL (74-106); PHOSPHORUS 2.7 MG/DL (2.5-4.9); SODIUM (NA) 147 MEQ/L (136-145); TOTAL BILIRUBIN ADULT 0.7 MG/DL (0.2-1.0); TOTAL PROTEIN 4.9 GM/DL (6.4-8.2)
[2018-02-06] MEDS: INSULIN ASPART SUPPLEMENTAL SCALE SQ SCH ×4 (08:00→20:51)
--- NOTE | 2018-02-06 08:56 | HHI.CCPN ---
Subjective Remarks/Hospital Course 82-year-old female who is brought to [facility] emergency department after she was found down on the floor of her kitchen. She was unable to recall circumstances of the fall but is confused. She has pressure wounds that are consistent with being on the floor for several days and she was covered in urine and feces. Her daughter last saw her on Monday 6 days ago and had not been in contact with her since. Her daughter states she has had trip and falls several times in the past and has been unable to get herself up. She was hypotensive with blood pressures in the 60s when [facility] arrived. They placed a peripheral IV and started 1 L normal saline bolus. An additional 1 L normal saline bolus was ordered. ED workup reveals urinalysis consistent with UTI, acute kidney injury with creatinine of 1.58 and sodium 157. She received Zosyn. Her blood pressure is now 113/58 with heart rate 119. 5/20: Remains encephalopathic/delirious this a.m. moaning and requesting for "water". She is currently afebrile. Afebrile. No bowel movement. Becomes tachycardic when moves secondary to pain 02/05: Remains in A. fib with RVR. Received 2 doses of digoxin 0.25 mg IV overnight. A.m. digoxin level pending. On scheduled diltiazem 30 mg 4 times daily. Troponin 0 0.03. TSH 0.87. A.m. laboratories all pending. Confused A. MRI brain ordered. Noted CT abdomen/pelvis revealed a retroperitoneal hematoma. Heparin subcutaneous has been held.. Hemoglobin stable. Remains on phenylephrine drip at 45 mcg/min Subjective 02/06: Atrial fib relation currently converted to normal sinus rhythm.. Remain confused today. MRI brain ordered and still pending. Appears stable hemodynamically. Objective Vital Signs Date Time Temp Pulse Resp B/P (MAP) Pulse Ox O2 Delivery O2 Flow Rate FiO2 02/06/18 07:37 95 21 02/06/18 06:00 92 02/06/18 04:00 97.7 17 99/51 (67) 02/05/18 19:00 Nasal Cannula 2.00 Intake and Output 02/06/18 02/06/18 02/07/18 08:00 16:00 00:00 Intake Total 480 ml Output Total 600 ml Balance -120 ml Result Diagram: 02/06/18 0425 02/06/18 0425 Other Results Microbiology Date/Time Source Procedure Growth Status 02/03/18 14:25 Blood Peripheral Aerobic Blood Culture - Preliminary Staph Sp Coagulase Negative Resulted 02/03/18 14:25 Blood Peripheral Anaerobic Blood Culture - Preliminary NO GROWTH IN 2 DAYS Resulted 02/03/18 14:23 Urine Catheterized Urine Urine Culture - Preliminary Escherichia Coli Resulted 02/04/18 13:30 Wound Hip Gram Stain - Final Resulted 02/04/18 13:30 Wound Culture - Preliminary Gram Negative Juanjose Resulted Imaging Last Impressions Chest X-Ray 02/04/18 1500 Signed Impressions: Service Date/Time: Sunday, February 04, 2018 15:08 - CONCLUSION: 1. Right IJ central line in good position without pneumothorax. Todd Young MD Renal Ultrasound 02/04/18 0000 Signed Impressions: Service Date/Time: Sunday, February 04, 2018 08:09 - CONCLUSION: 1. No evidence of hydronephrosis the right kidney. 2. Left kidney is not visualized. Slim Pizano MD Chest CT 02/04/18 0000 Signed Impressions: Service Date/Time: Sunday, February 04, 2018 20:04 - CONCLUSION: 1. Minimal left lung base atelectasis. 2. Trace anterior pericardial effusion. 3. Prominent main pulmonary artery consistent with some degree of pulmonary artery hypertension. Todd Young MD Abdomen/Pelvis CT 02/04/18 0000 Signed Impressions: Service Date/Time: Sunday, February 04, 2018 20:04 - CONCLUSION: 1. Retroperitoneal high density stranding extending from the inferior perinephric region along the anterior psoas consistent with retroperitoneal hematoma. Uncertain if this originates from or abuts the kidney although suspect the latter. 2. Markedly distended gallbladder otherwise appears unremarkable by CT. Consider HIDA scan if there is significant clinical concern regarding cystic duct obstruction. 3. Moderate stool in the rectum. 4. Compression fractures of L2 and L3 vertebral bodies of unknown chronicity. Todd Young MD Pelvis X-Ray 02/03/18 1348 Signed Impressions: Service Date/Time: Saturday, February 03, 2018 15:01 - CONCLUSION: 1. No acute fracture or dislocation. Todd Young MD Head CT 02/03/18 1348 Signed Impressions: Service Date/Time: Saturday, February 03, 2018 14:27 - CONCLUSION: 1. Senescent changes without acute intracranial abnormality. Todd Young MD Objective Remarks GENERAL: 82-year-old female currently resting in bed in mild distress secondary to pain SKIN: Warm and dry. There is a pressure ulceration of right breast including Areola with multiple excoriations/scratching. Anterior abdomen has linear pressure wound with some surrounding erythema,, medial aspect of left first metatarsal,~6 cm ulceration medial aspect of left knee. Large stage II to 3 pressure injury of her right hip about 13 x 4 cm with foul-smelling output. HEAD: Atraumatic. Normocephalic. EYES: Pupils equal and round, 2 mm and reactive to 1 mm. No scleral icterus. No injection or drainage. ENT: No nasal bleeding or discharge. Mucous membranes dry NECK: Trachea midline. No JVD. CARDIOVASCULAR: RRR. S1, S2 no S4. Without murmur RESPIRATORY: Essentially clear to auscultation without wheezes rales rhonchi GASTROINTESTINAL: Abdomen soft, non-tender, nondistended. Bowel sounds are present MUSCULOSKELETAL: Extremities trace to 1+ bilateral lower extremity nonpitting edema.. History of fourth right finger partial amputation NEUROLOGICAL: Awake and requesting water. Moves all 4 extremities spontaneously. Urinary Catheter: Yes Assessment to: Continue Wren insert reason: Prolonged Immobilization Vascular Central Line Catheter: Yes Assessment to: Continue Date of Insertion: February 04, 2018 Line: Central Venous Catheter Side: Right Location: Internal, Jugular A/P Assessment and Plan NEURO/PSYCH: Acute toxic metabolic encephalopathy Hard of hearing Presbycusis Underlying dementia disorder? CT brain 02/03 shows diffuse moderate atrophy but no acute changes. Ammonia level was less than 10 Acetaminophen 650 mg p.o. every 6 hours as needed fever Morphine sulfate 1 mg IV every 3 hours pain 1 through 5 Morphine sulfate 2 mg IV every 3 hours as needed pain 6 - 10 RESP: History of tobaccoism Nasal cannula to maintain saturations greater than or equal to 92% Incentive spirometry while awake Albuterol/ipratropium aerosols every 4 hours with albuterol aerosols every 2 hours as needed dyspnea CXR in a.m. 02/04 revealed no acute cardiopulmonary findings CT thorax 02/04 revealed minimal left basilar atelectasis. Trace anterior pericardial effusion. Prominent pulmonary arteries CV: Severe sepsis likely secondary to multiple pressure ulcers Lactic acidemia resolved Essential HTN at baseline Hyperlipidemia. A. fib with RVR Hold losartan unknown dosage due to acute kidney injury Hold amlodipine 5 mg daily as BP was low Holding pravastatin due to muscle breakdown Initial troponin negative. Will follow serial troponins. Currently off phenylephrine drip Scheduled oral diltiazem 60 mg p.o. 4 times daily Received 0.5 mg total of IV digoxin overnight. A.m. level pending Routine limited 2D echocardiogram ordered TSH 0.87 Appreciate cardiology consultation recommendation continue IV fluids to one half normal saline at 84 cc an hour see orders GI: Hypoalbuminemia Elevated transaminases Retroperitoneal hematoma/anterior psoas muscle Speech therapy evaluate and treat Full liquid diet Famotidine for GI prophylaxis Docusate sodium/senna 1 tablet twice daily for bowel regimen Hemoglobin appears stable/slowly decreasing. FEN/RENAL: Hyperosmolar hypernatremia Acute kidney injury creatinine currently 1.45 Bibasilar calyces of We will switch to one half normal saline at 84 cc an hour Left kidney is not identified. No hydronephrosis on right side on renal ultrasound. Negative hydronephrosis on CT CT abdomen/pelvis revealed bilateral. Calyces cyst. Retroperitoneal hematoma. ID: Severe sepsis Multiple pressure wounds, ?cellulitis abdomen. UTI -E. coli Blood cultures coag negative staph question contaminant Day #5 piperacillin/tazobactam. Currently holding vancomycin Follow-up blood and urine cultures. -Blood cultures no growth to date with urine gram-negative juanjose on 02/03. Wound 02/04 gram-negative juanjose Infectious disease consultation appreciate HEME: Normocytic anemia Thrombocytopenia Monitor CBC daily. Follow trend No indication for transfusion of blood products at this time ENDO: Stress hyperglycemia TSH 0.87 Sliding scale insulin with Accu-Cheks to maintain euglycemia with Novulog MSK: Grade 2-3 pressure injury to right hip Grade 2 pressure injury to right breast Elevated BMI Osteoporosis/osteoarthritis Left medial foot and knee Deep Tissue Injury: - Lamont Cavilon skin barrier film BID and leave open to air & free from pressure. Right hip Deep Tissue Injury Q3D and PRN for saturation or dislodgement: - Cleanse with wound cleanser and pat dry with gauze. - Apply MAXORB EXTRA AG over wound bed. - Lamont periwound with Cavilon skin barrier film and allow to dry. - Cover and secure Maxorb Extra Ag with bordered gauze dressing (primapore). PT evaluate and treat Weight loss encouraged PROPH: SCD/holding pharmacological prophylaxis secondary to retroperitoneal hematoma. Famotidine for stress ulcer prophylaxis. ACCESS: Right IJ CVL day #3 placed 02/04. Right femoral arterial line placed -02/06 Level 2 follow-up Stable from critical care medicine standpoint. Assign care to hospitalist in a.m. 02/07. Okay to transfer from ICU. Yomi Modi MD February 06, 2018 08:56
[2018-02-06] MEDS: SODIUM CHLORIDE 0.9% FLUSH 10 ML FLUSH IV FLUSH SCH ×3 (09:00→20:29)
[2018-02-06] MEDS: SODIUM CHLOR 0.45% 1000 ML INJ 1,000 ML IV SCH (09:23)
[2018-02-06] MEDS: DOCUSATE SODIUM 50 MG/SENNA 8.6 MG TAB PO SCH ×2 (09:23→20:29)
[2018-02-06] MEDS: DILTIAZEM HCL 60 MG TAB PO SCH ×4 (09:29→20:29)
--- NOTE | 2018-02-06 17:44 | RADRPT ---
EXAM DATE: 02/06/2018 5:36 PM EDT AGE/SEX: 82 years / Female INDICATIONS: Altered mental status. CLINICAL DATA: This is the patient's subsequent encounter. Patient reports that signs and symptoms h ave been present for 4 - 6 days and indicates a pain score of 0/10. MEDICAL/SURGICAL HISTORY: Hypertension. Appendectomy. Gastric bypass. Hysterectomy. ORIF ank le COMPARISON: No prior [facility] exams available for comparison. TECHNIQUE: Multiplanar, multisequence examination of the brain was performed without contrast. FINDINGS: Mild symmetric cortical atrophy. Patchy mild T2 prolongation in periventricular white zuleima er which appears chronic and benign. No evidence of intracranial mass or hemorrhage. Nothing to sugge st acute infarction. Extracranial structures are grossly benign in intact. CONCLUSION: Atrophy and chronic appearing ischemic white matter changes. No acute findings. Electronically signed by: Shashank Sanchez MD 02/06/2018 5:43 PM EDT
--- NOTE | 2018-02-06 18:04 | HHI.IDPN ---
Subjective Subjective Remarks heavy diarrjhea no fever Antibiotics catalino meng Allergies: Coded Allergies: No Known Allergies (Verified Allergy, Unknown, 02/03/18) Objective . Vital Signs Date Time Temp Pulse Resp B/P (MAP) Pulse Ox O2 Delivery O2 Flow Rate FiO2 02/06/18 14:00 77 02/06/18 12:00 97.9 84 20 115/58 (77) 96 02/06/18 12:00 84 02/06/18 10:00 92 02/06/18 08:00 78 02/06/18 08:00 97.6 78 20 124/58 (80) 99 02/06/18 07:37 95 21 02/06/18 07:00 99 Room Air 02/06/18 06:00 92 02/06/18 04:00 77 02/06/18 04:00 97.7 77 17 99/51 (67) 100 02/06/18 02:00 75 02/06/18 00:00 97.5 85 21 113/55 (74) 100 02/06/18 00:00 93 02/05/18 22:00 92 02/05/18 20:00 93 02/05/18 20:00 97.6 93 21 114/69 (84) 99 Arterial Line 02/05/18 19:00 98 Nasal Cannula 2.00 . Laboratory Tests Test 02/05/18 00:00 02/05/18 11:24 02/05/18 19:00 02/06/18 04:25 Hemoglobin 12.4 GM/DL 12.3 GM/DL 11.4 GM/DL 11.1 GM/DL Hematocrit 38.4 % 38.1 % 35.0 % 33.2 % White Blood Count 13.7 TH/MM3 9.6 TH/MM3 Red Blood Count 4.26 MIL/MM3 3.73 MIL/MM3 Mean Corpuscular Volume 89.5 FL 89.0 FL Mean Corpuscular Hemoglobin 28.8 PG 29.6 PG Mean Corpuscular Hemoglobin Concent 32.1 % 33.3 % Red Cell Distribution Width 14.7 % 14.4 % Platelet Count 185 TH/MM3 141 TH/MM3 Mean Platelet Volume 9.7 FL 9.5 FL Neutrophils (%) (Auto) 80.7 % 76.8 % Lymphocytes (%) (Auto) 11.0 % 13.5 % Monocytes (%) (Auto) 6.8 % 7.2 % Eosinophils (%) (Auto) 1.3 % 2.1 % Basophils (%) (Auto) 0.2 % 0.4 % Neutrophils # (Auto) 11.1 TH/MM3 7.3 TH/MM3 Lymphocytes # (Auto) 1.5 TH/MM3 1.3 TH/MM3 Monocytes # (Auto) 0.9 TH/MM3 0.7 TH/MM3 Eosinophils # (Auto) 0.2 TH/MM3 0.2 TH/MM3 Basophils # (Auto) 0.0 TH/MM3 0.0 TH/MM3 CBC Comment DIFF FINAL DIFF FINAL Differential Comment Laboratory Tests Test 02/04/18 19:10 02/05/18 11:24 02/06/18 04:25 02/06/18 10:32 Troponin I 0.03 NG/ML 0.06 NG/ML Sodium Level 145 MEQ/L 147 MEQ/L Blood Urea Nitrogen 36 MG/DL 24 MG/DL Creatinine 0.82 MG/DL 0.60 MG/DL Random Glucose 182 MG/DL 110 MG/DL Total Protein 5.4 GM/DL 4.9 GM/DL Albumin 2.0 GM/DL 1.9 GM/DL Calcium Level 7.9 MG/DL 7.6 MG/DL Phosphorus Level 2.3 MG/DL 2.7 MG/DL Magnesium Level 2.0 MG/DL 2.0 MG/DL Alkaline Phosphatase 204 U/L 153 U/L Aspartate Amino Transf (AST/SGOT) 156 U/L 167 U/L Alanine Aminotransferase (ALT/SGPT) 96 U/L 88 U/L Lactate Dehydrogenase 401 U/L Total Bilirubin 0.9 MG/DL 0.7 MG/DL Potassium Level 3.3 MEQ/L 4.0 MEQ/L Chloride Level 115 MEQ/L 116 MEQ/L Carbon Dioxide Level 19.8 MEQ/L 23.9 MEQ/L Anion Gap 12 MEQ/L 7 MEQ/L Estimat Glomerular Filtration Rate 67 ML/MIN 96 ML/MIN Lactic Acid Level 1.7 mmol/L Ammonia 33 MCMOL/L Total Creatine Kinase 1419 U/L 2275 U/L Creatine Kinase MB 70.5 NG/ML 92.6 NG/ML Creatine Kinase MB % 5.0 % 4.1 % Triglycerides Level 142 MG/DL Cholesterol Level 116 MG/DL LDL Cholesterol 51 MG/DL HDL Cholesterol 36.8 MG/DL Cholesterol/HDL Ratio 3.15 RATIO Amylase Level 119 U/L Lipase 349 U/L Random Cortisol 32.4 MCG/DL Microbiology Date/Time Source Procedure Growth Status 02/04/18 13:30 Wound Hip Gram Stain - Final Resulted 02/04/18 13:30 Wound Culture - Preliminary Proteus Species Resulted Imaging Last Impressions Brain MRI 02/06/18 0000 Signed Impressions: CONCLUSION: Chest X-Ray 02/04/18 1500 Signed Impressions: Service Date/Time: Sunday, February 04, 2018 15:08 - CONCLUSION: 1. Right IJ central line in good position without pneumothorax. Todd Young MD Renal Ultrasound 02/04/18 0000 Signed Impressions: Service Date/Time: Sunday, February 04, 2018 08:09 - CONCLUSION: 1. No evidence of hydronephrosis the right kidney. 2. Left kidney is not visualized. Slim Pizano MD Chest CT 02/04/18 0000 Signed Impressions: Service Date/Time: Sunday, February 04, 2018 20:04 - CONCLUSION: 1. Minimal left lung base atelectasis. 2. Trace anterior pericardial effusion. 3. Prominent main pulmonary artery consistent with some degree of pulmonary artery hypertension. Todd Young MD Abdomen/Pelvis CT 02/04/18 0000 Signed Impressions: Service Date/Time: Sunday, February 04, 2018 20:04 - CONCLUSION: 1. Retroperitoneal high density stranding extending from the inferior perinephric region along the anterior psoas consistent with retroperitoneal hematoma. Uncertain if this originates from or abuts the kidney although suspect the latter. 2. Markedly distended gallbladder otherwise appears unremarkable by CT. Consider HIDA scan if there is significant clinical concern regarding cystic duct obstruction. 3. Moderate stool in the rectum. 4. Compression fractures of L2 and L3 vertebral bodies of unknown chronicity. Todd Young MD Pelvis X-Ray 02/03/18 1348 Signed Impressions: Service Date/Time: Saturday, February 03, 2018 15:01 - CONCLUSION: 1. No acute fracture or dislocation. Todd Young MD Head CT 02/03/18 1348 Signed Impressions: Service Date/Time: Saturday, February 03, 2018 14:27 - CONCLUSION: 1. Senescent changes without acute intracranial abnormality. Todd Young MD Physical Exam CONSTITUTIONAL/GENERAL: This is an adequately nourished patient, in no apparent distress. TUBES/LINES/DRAINS: SKIN: No jaundice, rashes, . Multiple ecchymoses abdomen, R breast. Back eschar , dry noted. No open wounds seen Skin temperature appropriate. Not diaphoretic. R thigh wound with necrotic skin, serous odorless drainage CARDIOVASCULAR: Regular rate and rhythm without murmurs, gallops, or rubs. No JVD. Peripheral pulses symmetric. RESPIRATORY/CHEST: Symmetric, unlabored respirations. Clear to auscultation. Breath sounds equal bilaterally. No wheezes, rales, or rhonchi. GASTROINTESTINAL: Abdomen soft, non-tender, nondistended. No hepato-splenomegaly , or palpable masses. No guarding. Bowel sounds present. Incontinent of large amount of very liquid brown stool GENITOURINARY: Without palpable bladder distension. Wren catheter in place with yellow urine MUSCULOSKELETAL: Extremities without clubbing, cyanosis, 1+edema. No joint tenderness or effusion noted. No calf tenderness. No mottling or clubbing. LYMPHATICS: No palpable cervical or supraclavicular adenopathy. NEUROLOGICAL: Awake and alert. Very confused Motor and sensory grossly within normal limits. Not follows commands. Incoherent speech . Moves all extremities. PSYCHIATRIC: agitated screaming Assessment & Plan Remarks Found down Sepsis is most likely reasdon for her AMS UTI appears to be the source of sepsis E.coli UTI Pressuure wounds, Low grade coag neg staph bacteremia, likley contaminant Retroperitoneal hemaotoma / traumatic Diarrhea chk stool for C.diff cont KIMBERLI bae vanco FU HIP WOUND CLX (gnb PREMLIM) further abx adjustement per final clx Discussed Condition With Stephanie Winn MD February 06, 2018 18:04
[2018-02-06] MEDS: FAMOTIDINE 20 MG TAB PO SCH (20:29)
[2018-02-07] VITALS (9 sets, daily range): BP systolic 104–125; BP diastolic 57–77; PULSE 71–99; RESP 17–20; TEMP 97.4–99; O2SAT 95–100
[2018-02-07] MEDS: SODIUM CHLOR 0.45% 1000 ML INJ 1,000 ML IV SCH ×3 (00:39→22:12)
[2018-02-07] MEDS: PIPERACIL-TAZO 3.375 GM PREMIX 50 ML IV SCH ×5 (00:46→22:12)
[2018-02-07] MEDS: CHLORHEXIDINE GLUCONATE 2 % 1 PACK (2 CLOTHS) TOP SCH (04:00)
[2018-02-07] MEDS: RESP: ALBUTEROL 2.5 MG/IPRATROPIUM 0.5 MG NEB (SCH) INH ×4 (04:14→20:00)
[2018-02-07 04:58] LABS: AUTOMATED NEUTROPHIL # 5.3 TH/MM3 (1.8-7.7); BASOPHIL % 0.6 % (0.0-2.0); EOSINOPHIL # 0.1 TH/MM3 (0-0.4); EOSINOPHIL % 1.8 % (0.0-4.0); HEMATOCRIT 30.7 % (35.0-46.0); HEMOGLOBIN 10.1 GM/DL (11.6-15.3); LYMPH % 19.9 % (9.0-44.0); LYMPHOCYTE # 1.5 TH/MM3 (1.0-4.8); MEAN CELL VOLUME 88.8 FL (80.0-100.0); MEAN CORPUSCULAR HEMOGLOBIN 29.1 PG (27.0-34.0); MEAN CORPUSCULAR HGB CONC 32.7 % (32.0-36.0); MEAN PLATELET VOLUME 9.5 FL (7.0-11.0); MONO % 7.8 % (0.0-8.0); MONOCYTE # 0.6 TH/MM3 (0-0.9); NEUT % 69.9 % (16.0-70.0); PLATELET COUNT 134 TH/MM3 (150-450); RED BLOOD COUNT 3.46 MIL/MM3 (4.00-5.30); RED CELL DISTRIBUTION WIDTH 14.5 % (11.6-17.2); WHITE BLOOD COUNT 7.6 TH/MM3 (4.0-11.0)
[2018-02-07 05:18] LABS: ALBUMIN 1.8 GM/DL (3.4-5.0); AST (GOT) 175 U/L (15-37); BLOOD UREA NITROGEN 15 MG/DL (7-18); CALCIUM 7.8 MG/DL (8.5-10.1); CHLORIDE 113 MEQ/L (98-107); CREATININE 0.55 MG/DL (0.50-1.00); GLOMERULAR FILTRATION RATE 106 ML/MIN (>89); GLUCOSE,RANDOM 111 MG/DL (74-106); MAGNESIUM 1.8 MG/DL (1.5-2.5); SODIUM (NA) 145 MEQ/L (136-145)
[2018-02-07 05:19] LABS: ALT (GPT) 84 U/L (10-53); PHOSPHORUS 2.3 MG/DL (2.5-4.9)
[2018-02-07 05:33] LABS: ALKALINE PHOSPHATASE 115 U/L (45-117); TOTAL BILIRUBIN ADULT 0.6 MG/DL (0.2-1.0); TOTAL PROTEIN 4.7 GM/DL (6.4-8.2)
[2018-02-07] MEDS: INSULIN ASPART SUPPLEMENTAL SCALE SQ SCH ×4 (08:00→21:00)
[2018-02-07] MEDS: SODIUM CHLORIDE 0.9% FLUSH 10 ML FLUSH IV FLUSH SCH ×3 (08:52→22:12)
[2018-02-07] MEDS: DOCUSATE SODIUM 50 MG/SENNA 8.6 MG TAB PO SCH ×2 (08:52→22:15)
[2018-02-07] MEDS: DILTIAZEM HCL 60 MG TAB PO SCH ×4 (08:52→22:15)
--- NOTE | 2018-02-07 11:06 | HHI.PR ---
Subjective Remarks in no acute distress. mildly lethargic but easily arousable. complaining of some pain to the right knee. no fever. Objective Vitals Vital Signs Date Time Temp Pulse Resp B/P (MAP) Pulse Ox O2 Delivery O2 Flow Rate FiO2 02/07/18 08:25 98 21 02/07/18 08:00 99.0 88 17 118/61 (80) 99 02/07/18 04:16 97 02/07/18 04:00 98.1 99 17 104/57 (73) 95 02/07/18 04:00 86 02/07/18 00:52 94 02/07/18 00:00 97.9 86 17 125/58 (80) 95 02/06/18 23:30 Room Air 02/06/18 21:10 97.5 87 19 124/60 (81) 94 02/06/18 20:30 100 21 02/06/18 20:00 89 02/06/18 20:00 97.7 81 21 117/55 (75) 100 02/06/18 19:00 100 Room Air 02/06/18 18:00 92 02/06/18 14:00 77 02/06/18 12:00 97.9 84 20 115/58 (77) 96 02/06/18 12:00 84 I/O 02/06/18 02/06/18 02/06/18 02/07/18 02/07/18 02/07/18 07:00 15:00 23:00 07:00 15:00 23:00 Intake Total 480 ml 480 ml 240 ml Output Total 600 ml 750 ml 650 ml Balance -120 ml -270 ml -410 ml Intake Oral 480 ml 480 ml 240 ml Output Urine Total 600 ml 550 ml 650 ml Gastric Drainage Total 200 ml # Voids 1 # Bowel Movements 6 Result Diagram: 02/07/18 0445 02/07/18 0445 Imaging Last Impressions Brain MRI 02/06/18 0000 Signed Impressions: CONCLUSION: Chest X-Ray 02/04/18 1500 Signed Impressions: Service Date/Time: Sunday, February 04, 2018 15:08 - CONCLUSION: 1. Right IJ central line in good position without pneumothorax. Todd Young MD Renal Ultrasound 02/04/18 0000 Signed Impressions: Service Date/Time: Sunday, February 04, 2018 08:09 - CONCLUSION: 1. No evidence of hydronephrosis the right kidney. 2. Left kidney is not visualized. Slim Pizano MD Chest CT 02/04/18 0000 Signed Impressions: Service Date/Time: Sunday, February 04, 2018 20:04 - CONCLUSION: 1. Minimal left lung base atelectasis. 2. Trace anterior pericardial effusion. 3. Prominent main pulmonary artery consistent with some degree of pulmonary artery hypertension. Todd Young MD Abdomen/Pelvis CT 02/04/18 0000 Signed Impressions: Service Date/Time: Sunday, February 04, 2018 20:04 - CONCLUSION: 1. Retroperitoneal high density stranding extending from the inferior perinephric region along the anterior psoas consistent with retroperitoneal hematoma. Uncertain if this originates from or abuts the kidney although suspect the latter. 2. Markedly distended gallbladder otherwise appears unremarkable by CT. Consider HIDA scan if there is significant clinical concern regarding cystic duct obstruction. 3. Moderate stool in the rectum. 4. Compression fractures of L2 and L3 vertebral bodies of unknown chronicity. Todd Young MD Pelvis X-Ray 02/03/18 1348 Signed Impressions: Service Date/Time: Saturday, February 03, 2018 15:01 - CONCLUSION: 1. No acute fracture or dislocation. Todd Young MD Head CT 02/03/18 1348 Signed Impressions: Service Date/Time: Saturday, February 03, 2018 14:27 - CONCLUSION: 1. Senescent changes without acute intracranial abnormality. Todd Young MD Objective Remarks GENERAL: This is a well-nourished, well-developed patient, in no apparent distress. CARDIOVASCULAR: Regular rate and regular rhythm without murmurs, gallops, or rubs. RESPIRATORY: Clear to auscultation. Breath sounds equal bilaterally. No wheezes , rales, or rhonchi. GASTROINTESTINAL: Abdomen soft, non-tender, nondistended. Normal, active bowel sounds MUSCULOSKELETAL: right knee is swollen and tender. NEURO: mildly lethargic but easily arousable. Procedures central line placement/ femoral artery catheter placement. Medications and IVs Inpatient Medications Acetaminophen (Tylenol) 650 mg Q6H PRN PO FEVER >100F; Start 02/03/18 at 19:00 Albuterol Sulfate (Albuterol Neb) 2.5 mg Q2HR NEB PRN INH SOB/WHEEZING; Start 02/03/18 at 19:00 Albuterol/ Ipratropium (Duoneb Neb) 1 ampule Q6HR NEB INH Last administered on 02/07/18at 08:23; Start 02/03/18 at 22:00 Bisacodyl (Dulcolax Supp) 10 mg DAILY PRN RECTAL SEVERE CONSITIPATION; Start at 19:00 Chlorhexidine Gluconate (Chlorhexidine 2% Cloth) 3 pack UNSCH PRN TOP HYGIENIC CARE; Start 02/03/18 at 19:00 Dextrose (D50w (Vial) Inj) 50 ml UNSCH PRN IV PUSH HYPOGLYCEMIA-SEE COMMENTS; Start 02/04/18 at 11:30 Diatrizoate Meglum/ Diatrizoate Sod ( Gastroview Liq) 18 ml ONCE ONCE PO Last administered on 02/04/18at 13:16; Start 02/04/18 at 12:00; Stop 02/04/18 at 12:01; Status DC Digoxin (Lanoxin Inj) 0.25 mg DAILY IV PUSH Last administered on 02/05/18at 08: 26; Start 02/04/18 at 20:45; Stop 02/05/18 at 11:18; Status DC Diltiazem HCl (Cardizem) 60 mg QID PO Last administered on 02/07/18at 08:52; Start 02/05/18 at 13:00 Famotidine (Pepcid Inj) 20 mg Q12HR IV PUSH Last administered on 02/03/18at 22: 25; Start 02/03/18 at 21:00; Stop 02/04/18 at 08:40; Status DC Famotidine (Pepcid) 20 mg HS PO Last administered on 02/06/18at 20:29; Start at 21:00 Glucagon (Glucagon Inj) 1 mg UNSCH PRN OTHER HYPOGLYCEMIA-SEE COMMENTS; Start 02/04/18 at 11:30 Glycerin (Glycerin Adult Supp) 2 gm ONCE ONCE RECTAL Last administered on 02/05at 12:10; Start 02/05/18 at 06:30; Stop 02/05/18 at 06:31; Status DC Heparin Sodium (Porcine) (Heparin Inj) 5,000 units Q12H SQ Last administered on 02/04/18at 21:25; Start 02/03/18 at 20:00; Stop 02/05/18 at 06:28; Status DC Insulin Aspart (NovoLOG SUPPLEMENTAL SCALE) 1 ACHS SLIDING SCALE SQ ; Start at 12:00 Labetalol HCl (Trandate Inj) 10 mg Q1HR PRN IV PUSH SBP>160, DBP>90, HR>65; Start 02/04/18 at 11:30 Lactulose (Lactulose Liq) 30 ml DAILY PRN PO SEVERE CONSITIPATION; Start at 19:00 Magnesium Hydroxide (Milk Of Magnesia Liq) 30 ml Q12H PRN PO Mild constipation ; Start 02/03/18 at 19:00 Metoprolol Tartrate (Lopressor Inj) 5 mg ONCE ONCE IV PUSH Last administered on 02/04/18at 19:20; Start 02/04/18 at 19:15; Stop 02/04/18 at 19:16; Status DC Miscellaneous Information ([facility] Nursing Information) 1 Q361D XX ; Start at 19:00 Miscellaneous Information ([facility] Ordered Lab Info) SPECIFIC LAB TO BE MARCE... ONCE ONCE .XX ; Start 02/08/18 at 14:45; Stop 02/08/18 at 14:46 Morphine Sulfate (Morphine Inj) 2 mg Q3H PRN IV Pain 6-10 Last administered on 02/07/18at 00:48; Start 02/05/18 at 06:45 Nitroglycerin (Nitroglycerin 2% Oint) 2 inch Q6HR PRN TOPICAL SBP>160, DBP>90; Start 02/04/18 at 11:30 Padimate O (Chapstick) 1 applic UNSCH PRN TOPICAL dry lips Last administered on 02/05/18at 12:10; Start 02/05/18 at 07:00 Pharmacy Profile Note 0 ml @ 0 mls/hr UNSCH OTHER ; Start 02/03/18 at 18:45; Stop 02/05/18 at 23:28; Status DC Phenylephrine HCl 160 mg/Dextrose 500 ml @ 7.5 mls/hr TITRATE PRN IV Blood pressure management Last administered on 02/04/18at 14:30; Start 02/04/18 at 14: 15 Piperacillin Sod/ Tazobactam Sod 50 ml @ 100 mls/hr Q6H IV Last administered on 02/07/18at 04:58; Start 02/03/18 at 23:00 Potassium Phosphate 30 mmol/ Sodium Chloride 260 ml @ 43.333 mls/ hr ONCE ONCE IV Last administered on 02/05/18at 16:50; Start 02/05/18 at 15:00; Stop at 20:59; Status DC Potassium Chloride 100 ml @ 25 mls/hr BOLUS ONCE IV Last administered on 02/05at 16:50; Start 02/05/18 at 14:00; Stop 02/05/18 at 17:59; Status DC Pravastatin Sodium (Pravachol) 20 mg DAILY PO Last administered on 02/04/18at 09 :08; Start 02/04/18 at 09:00; Status Future Hold Senna/Docusate Sodium (Jeanette-Colace) 1 tab BID PO Last administered on at 08:52; Start 02/03/18 at 21:00 Sennosides (Senokot) 17.2 mg Q12H PRN PO Moderate constipation; Start 02/03/18 at 19:00 Sodium Chloride 1,000 ml @ 84 mls/hr [id number] IV Last administered on at 08:53; Start 02/06/18 at 09:00 Sodium Chloride (NS Flush) UNSCH PRN IV FLUSH SEE PROTOCOL; Start 02/04/18 at 15:00 Sodium Chloride 38.5 meq/Sterile Water 1,009.625 ml @ 100 mls/hr Q10H6M IV Last administered on 02/05/18at 10:24; Start 02/04/18 at 10:00; Stop 02/05/18 at 13:06; Status DC Terbutaline Sulfate (Brethine Inj) 1 mg UNSCH PRN SQ For Extravasation; Start 02/04/18 at 14:15 Vancomycin HCl 1250 mg/Sodium Chloride 262.5 ml @ 250 mls/hr ONCE ONCE IV Last administered on 02/03/18at 22:26; Start 02/03/18 at 21:00; Stop 02/03/18 at 22:02; Status DC Vancomycin HCl 1500 mg/Sodium Chloride 515 ml @ 257.5 mls/ hr Q24H IV Last administered on 02/05/18at 16:51; Start 02/05/18 at 15:00; Stop 02/05/18 at 23:28 ; Status DC Date of Insertion: February 04, 2018 Line: Central Venous Catheter Side: Right Location: Internal, Jugular A/P Assessment and Plan Acute toxic metabolic encephalopathy Hard of hearing Presbycusis Underlying dementia disorder? CT brain 02/03 shows diffuse moderate atrophy but no acute changes. MRI brain with no acute abnormality. Ammonia level was less than 10 continue to monitor. Essential HTN at baseline Hyperlipidemia. A. fib with RVR Hold losartan unknown dosage due to acute kidney injury Hold amlodipine 5 mg daily as BP was low Holding pravastatin due to muscle breakdown Scheduled oral diltiazem 60 mg p.o. 4 times daily Routine limited 2D echocardiogram ordered TSH 0.87 Appreciate cardiology consultation recommendation Hypoalbuminemia Elevated transaminases Retroperitoneal hematoma/anterior psoas muscle Speech therapy evaluate and treat Famotidine for GI prophylaxis Docusate sodium/senna 1 tablet twice daily for bowel regimen Hemoglobin appears slowly decreasing- continue to monitor. Hyperosmolar hypernatremia Acute kidney injury creatinine currently 1.45 rhabdomyolysis continue IV fluid. monitor CPK levels. Left kidney is not identified. No hydronephrosis on right side on renal ultrasound. Negative hydronephrosis on CT CT abdomen/pelvis revealed bilateral. Calyces cyst. Retroperitoneal hematoma. Severe sepsis Multiple pressure wounds, ?cellulitis abdomen. UTI -E. coli Blood cultures coag negative staph question contaminant on piperacillin/tazobactam. Currently holding vancomycin Follow-up blood and urine cultures. -Blood cultures no growth to date with urine gram-negative isabella on 02/03. Wound 02/04 gram-negative isabella ID following. Normocytic anemia Thrombocytopenia Monitor CBC. No indication for transfusion of blood products at this time Stress hyperglycemia TSH 0.87 Sliding scale insulin with Accu-Cheks to maintain euglycemia with Novulog Grade 2-3 pressure injury to right hip Grade 2 pressure injury to right breast Elevated BMI Osteoporosis/osteoarthritis Left medial foot and knee Deep Tissue Injury: - [place] Cavilon skin barrier film BID and leave open to air & free from pressure. Right hip Deep Tissue Injury Q3D and PRN for saturation or dislodgement: - Cleanse with wound cleanser and pat dry with gauze. - Apply MAXORB EXTRA AG over wound bed. - [place] periwound with Cavilon skin barrier film and allow to dry. - Cover and secure Maxorb Extra Ag with bordered gauze dressing (primapore). PT evaluate and treat Weight loss encouraged PROPH: SCD/holding pharmacological prophylaxis secondary to retroperitoneal hematoma. Famotidine for stress ulcer prophylaxis. Discharge Planning dc planning to SNF in 2-3 days if continues to improve. Michael Johnson MD February 07, 2018 11:06
[2018-02-07] MEDS ORDERED: ACETAMINOPHEN/HYDROcodone 325 MG/5 MG TAB PO PRN (11:15)
[2018-02-07] MEDS ORDERED: MORPHINE SULFATE 2 MG/ML SYRINGE IV PUSH PRN (11:15)
[2018-02-07] MEDS: ACETAMINOPHEN/HYDROcodone 325 MG/5 MG TAB PO PRN (14:12)
[2018-02-07] MEDS: FAMOTIDINE 20 MG TAB PO SCH (22:15)
[2018-02-08] VITALS (11 sets, daily range): BP systolic 119–140; BP diastolic 60–72; PULSE 68–111; RESP 18–20; TEMP 97.3–98.6; O2SAT 95–100
[2018-02-08] MEDS: CHLORHEXIDINE GLUCONATE 2 % 1 PACK (2 CLOTHS) TOP SCH (04:00)
[2018-02-08] MEDS: PIPERACIL-TAZO 3.375 GM PREMIX 50 ML IV SCH ×4 (06:36→22:19)
[2018-02-08 06:59] LABS: AUTOMATED NEUTROPHIL # 8.4 TH/MM3 (1.8-7.7); BASOPHIL % 0.3 % (0.0-2.0); EOSINOPHIL # 0.3 TH/MM3 (0-0.4); EOSINOPHIL % 2.7 % (0.0-4.0); HEMATOCRIT 31.5 % (35.0-46.0); HEMOGLOBIN 10.3 GM/DL (11.6-15.3); LYMPH % 9.8 % (9.0-44.0); MEAN CELL VOLUME 88.8 FL (80.0-100.0); MEAN CORPUSCULAR HEMOGLOBIN 29.1 PG (27.0-34.0); MEAN CORPUSCULAR HGB CONC 32.8 % (32.0-36.0); MONO % 5.6 % (0.0-8.0); MONOCYTE # 0.6 TH/MM3 (0-0.9); NEUT % 81.6 % (16.0-70.0); PLATELET COUNT 165 TH/MM3 (150-450); RED BLOOD COUNT 3.54 MIL/MM3 (4.00-5.30); RED CELL DISTRIBUTION WIDTH 14.5 % (11.6-17.2); WHITE BLOOD COUNT 10.3 TH/MM3 (4.0-11.0)
[2018-02-08 07:48] LABS: BICARBONATE 22.6 MEQ/L (21.0-32.0); CALCIUM 7.6 MG/DL (8.5-10.1); CREATININE 0.61 MG/DL (0.50-1.00)
[2018-02-08] MEDS: SODIUM CHLORIDE 0.9% FLUSH 10 ML FLUSH IV FLUSH SCH ×3 (07:57→21:00)
[2018-02-08] MEDS: SODIUM CHLOR 0.45% 1000 ML INJ 1,000 ML IV SCH ×2 (07:58→17:43)
[2018-02-08] MEDS: INSULIN ASPART SUPPLEMENTAL SCALE SQ SCH ×4 (08:00→22:20)
[2018-02-08] MEDS: DOCUSATE SODIUM 50 MG/SENNA 8.6 MG TAB PO SCH ×2 (08:01→22:19)
[2018-02-08] MEDS: DILTIAZEM HCL 60 MG TAB PO SCH ×4 (08:01→22:19)
--- NOTE | 2018-02-08 10:31 | HHI.PR ---
Subjective Remarks resting comfortably with no distress. still with loose stool. no fever. denies pain. Objective Vitals Vital Signs Date Time Temp Pulse Resp B/P (MAP) Pulse Ox O2 Delivery O2 Flow Rate FiO2 02/08/18 09:34 Room Air 02/08/18 08:00 90 02/08/18 04:00 97.3 94 18 140/67 (91) 100 02/08/18 04:00 80 02/08/18 00:14 76 02/08/18 00:00 Room Air 02/08/18 00:00 98.0 68 18 119/60 (79) 99 02/07/18 20:00 77 02/07/18 20:00 Room Air 02/07/18 20:00 97.4 86 20 123/60 (81) 99 02/07/18 20:00 98 02/07/18 16:00 98.1 74 18 115/77 (90) 97 02/07/18 16:00 71 02/07/18 15:18 18 02/07/18 12:00 97.9 86 18 112/73 (86) 100 02/07/18 12:00 82 I/O 02/07/18 02/07/18 02/07/18 02/08/18 02/08/18 02/08/18 07:00 15:00 23:00 07:00 15:00 23:00 Intake Total 240 ml 720 ml 240 ml Output Total 650 ml 650 ml 1000 ml Balance -410 ml 70 ml -760 ml Intake Oral 240 ml 720 ml 240 ml Output Urine Total 650 ml 650 ml 1000 ml # Voids 1 # Bowel Movements 1 1 Result Diagram: 02/08/18 0637 02/08/18 0637 Imaging Last Impressions Brain MRI 02/06/18 0000 Signed Impressions: CONCLUSION: Atrophy and chronic appearing ischemic white matter changes. No acute findings. Chest X-Ray 02/04/18 1500 Signed Impressions: Service Date/Time: Sunday, February 04, 2018 15:08 - CONCLUSION: 1. Right IJ central line in good position without pneumothorax. Todd Young MD Renal Ultrasound 02/04/18 0000 Signed Impressions: Service Date/Time: Sunday, February 04, 2018 08:09 - CONCLUSION: 1. No evidence of hydronephrosis the right kidney. 2. Left kidney is not visualized. Slim Pizano MD Chest CT 02/04/18 0000 Signed Impressions: Service Date/Time: Sunday, February 04, 2018 20:04 - CONCLUSION: 1. Minimal left lung base atelectasis. 2. Trace anterior pericardial effusion. 3. Prominent main pulmonary artery consistent with some degree of pulmonary artery hypertension. Todd Young MD Abdomen/Pelvis CT 02/04/18 0000 Signed Impressions: Service Date/Time: Sunday, February 04, 2018 20:04 - CONCLUSION: 1. Retroperitoneal high density stranding extending from the inferior perinephric region along the anterior psoas consistent with retroperitoneal hematoma. Uncertain if this originates from or abuts the kidney although suspect the latter. 2. Markedly distended gallbladder otherwise appears unremarkable by CT. Consider HIDA scan if there is significant clinical concern regarding cystic duct obstruction. 3. Moderate stool in the rectum. 4. Compression fractures of L2 and L3 vertebral bodies of unknown chronicity. Todd Young MD Pelvis X-Ray 02/03/18 1348 Signed Impressions: Service Date/Time: Saturday, February 03, 2018 15:01 - CONCLUSION: 1. No acute fracture or dislocation. Todd Young MD Head CT 02/03/18 1348 Signed Impressions: Service Date/Time: Saturday, February 03, 2018 14:27 - CONCLUSION: 1. Senescent changes without acute intracranial abnormality. Todd Young MD Objective Remarks GENERAL: This is a well-nourished, well-developed patient, in no apparent distress. CARDIOVASCULAR: Regular rate and regular rhythm without murmurs, gallops, or rubs. RESPIRATORY: Clear to auscultation. Breath sounds equal bilaterally. No wheezes , rales, or rhonchi. GASTROINTESTINAL: Abdomen soft, non-tender, nondistended. Normal, active bowel sounds MUSCULOSKELETAL: right knee is swollen and tender. NEURO: mildly lethargic but easily arousable. Procedures central line placement/ femoral artery catheter placement. Medications and IVs Inpatient Medications Acetaminophen (Tylenol) 650 mg Q6H PRN PO FEVER >100F; Start 02/03/18 at 19:00 Acetaminophen/ Hydrocodone Bitart ([place] 5-325 Mg) 2 tab Q4H PRN PO PAIN 8-10 ; Start 02/07/18 at 11:15 Albuterol Sulfate (Albuterol Neb) 2.5 mg Q2HR NEB PRN INH SOB/WHEEZING; Start 02/03/18 at 19:00 Albuterol/ Ipratropium (Duoneb Neb) 1 ampule Q6HR NEB INH Last administered on 02/07/18at 20:00; Start 02/03/18 at 22:00; Stop 02/07/18 at 21:59; Status DC Bisacodyl (Dulcolax Supp) 10 mg DAILY PRN RECTAL SEVERE CONSITIPATION; Start at 19:00 Chlorhexidine Gluconate (Chlorhexidine 2% Cloth) 3 pack UNSCH PRN TOP HYGIENIC CARE; Start 02/03/18 at 19:00 Dextrose (D50w (Vial) Inj) 50 ml UNSCH PRN IV PUSH HYPOGLYCEMIA-SEE COMMENTS; Start 02/04/18 at 11:30 Diatrizoate Meglum/ Diatrizoate Sod ( Gastroview Liq) 18 ml ONCE ONCE PO Last administered on 02/04/18at 13:16; Start 02/04/18 at 12:00; Stop 02/04/18 at 12:01; Status DC Digoxin (Lanoxin Inj) 0.25 mg DAILY IV PUSH Last administered on 02/05/18at 08: 26; Start 02/04/18 at 20:45; Stop 02/05/18 at 11:18; Status DC Diltiazem HCl (Cardizem) 60 mg QID PO Last administered on 02/08/18at 08:01; Start 02/05/18 at 13:00 Famotidine (Pepcid Inj) 20 mg Q12HR IV PUSH Last administered on 02/03/18at 22: 25; Start 02/03/18 at 21:00; Stop 02/04/18 at 08:40; Status DC Famotidine (Pepcid) 20 mg HS PO Last administered on 02/07/18at 22:15; Start at 21:00 Glucagon (Glucagon Inj) 1 mg UNSCH PRN OTHER HYPOGLYCEMIA-SEE COMMENTS; Start 02/04/18 at 11:30 Glycerin (Glycerin Adult Supp) 2 gm ONCE ONCE RECTAL Last administered on 02/05at 12:10; Start 02/05/18 at 06:30; Stop 02/05/18 at 06:31; Status DC Heparin Sodium (Porcine) (Heparin Inj) 5,000 units Q12H SQ Last administered on 02/04/18at 21:25; Start 02/03/18 at 20:00; Stop 02/05/18 at 06:28; Status DC Insulin Aspart (NovoLOG SUPPLEMENTAL SCALE) 1 ACHS SLIDING SCALE SQ Last administered on 02/07/18at 12:51; Start 02/04/18 at 12:00 Labetalol HCl (Trandate Inj) 10 mg Q1HR PRN IV PUSH SBP>160, DBP>90, HR>65; Start 02/04/18 at 11:30 Lactulose (Lactulose Liq) 30 ml DAILY PRN PO SEVERE CONSITIPATION; Start at 19:00 Magnesium Hydroxide (Milk Of Magnesia Liq) 30 ml Q12H PRN PO Mild constipation ; Start 02/03/18 at 19:00 Metoprolol Tartrate (Lopressor Inj) 5 mg ONCE ONCE IV PUSH Last administered on 02/04/18at 19:20; Start 02/04/18 at 19:15; Stop 02/04/18 at 19:16; Status DC Miscellaneous Information ([facility] Nursing Information) 1 Q361D XX ; Start at 19:00 Morphine Sulfate (Morphine Inj) 2 mg Q4H PRN IV PUSH BREAKTHROUGH PAIN; Start 02/07/18 at 11:15 Nitroglycerin (Nitroglycerin 2% Oint) 2 inch Q6HR PRN TOPICAL SBP>160, DBP>90; Start 02/04/18 at 11:30 Padimate O (Chapstick) 1 applic UNSCH PRN TOPICAL dry lips Last administered on 02/05/18at 12:10; Start 02/05/18 at 07:00 Pharmacy Profile Note 0 ml @ 0 mls/hr UNSCH OTHER ; Start 02/03/18 at 18:45; Stop 02/05/18 at 23:28; Status DC Phenylephrine HCl 160 mg/Dextrose 500 ml @ 7.5 mls/hr TITRATE PRN IV Blood pressure management Last administered on 02/04/18at 14:30; Start 02/04/18 at 14: 15; Stop 02/07/18 at 11:22; Status DC Piperacillin Sod/ Tazobactam Sod 50 ml @ 100 mls/hr Q6H IV Last administered on 02/08/18at 08:01; Start 02/03/18 at 23:00 Potassium Phosphate 30 mmol/ Sodium Chloride 260 ml @ 43.333 mls/ hr ONCE ONCE IV Last administered on 02/05/18at 16:50; Start 02/05/18 at 15:00; Stop at 20:59; Status DC Potassium Chloride 100 ml @ 25 mls/hr BOLUS ONCE IV Last administered on 02/05at 16:50; Start 02/05/18 at 14:00; Stop 02/05/18 at 17:59; Status DC Pravastatin Sodium (Pravachol) 20 mg DAILY PO Last administered on 02/04/18at 09 :08; Start 02/04/18 at 09:00; Status Future Hold Senna/Docusate Sodium (Jeanette-Colace) 1 tab BID PO Last administered on at 08:01; Start 02/03/18 at 21:00 Sennosides (Senokot) 17.2 mg Q12H PRN PO Moderate constipation; Start 02/03/18 at 19:00 Sodium Chloride 1,000 ml @ 84 mls/hr [id number] IV Last administered on at 22:12; Start 02/06/18 at 09:00 Sodium Chloride (NS Flush) UNSCH PRN IV FLUSH SEE PROTOCOL; Start 02/04/18 at 15:00 Sodium Chloride 38.5 meq/Sterile Water 1,009.625 ml @ 100 mls/hr Q10H6M IV Last administered on 02/05/18at 10:24; Start 02/04/18 at 10:00; Stop 02/05/18 at 13:06; Status DC Terbutaline Sulfate (Brethine Inj) 1 mg UNSCH PRN SQ For Extravasation; Start 02/04/18 at 14:15 Vancomycin HCl 1250 mg/Sodium Chloride 262.5 ml @ 250 mls/hr ONCE ONCE IV Last administered on 02/03/18at 22:26; Start 02/03/18 at 21:00; Stop 02/03/18 at 22:02; Status DC Vancomycin HCl 1500 mg/Sodium Chloride 515 ml @ 257.5 mls/ hr Q24H IV Last administered on 02/05/18at 16:51; Start 02/05/18 at 15:00; Stop 02/05/18 at 23:28 ; Status DC Date of Insertion: February 04, 2018 Line: Central Venous Catheter Side: Right Location: Internal, Jugular A/P Assessment and Plan Acute toxic metabolic encephalopathy- improving slowly. Hard of hearing Presbycusis Underlying dementia disorder? CT brain 02/03 shows diffuse moderate atrophy but no acute changes. MRI brain with no acute abnormality. Ammonia level was less than 10 continue to monitor. Essential HTN at baseline Hyperlipidemia. A. fib with RVR Hold losartan unknown dosage due to acute kidney injury Hold amlodipine 5 mg daily as BP was low Holding pravastatin due to muscle breakdown Scheduled oral diltiazem 60 mg p.o. 4 times daily Routine limited 2D echocardiogram ordered TSH 0.87 Appreciate cardiology consultation recommendation Hypoalbuminemia Elevated transaminases Retroperitoneal hematoma/anterior psoas muscle Speech therapy evaluate and treat Famotidine for GI prophylaxis Docusate sodium/senna 1 tablet twice daily for bowel regimen Hemoglobin appears slowly decreasing- continue to monitor. Hyperosmolar hypernatremia Acute kidney injury rhabdomyolysis hypokalemia continue IV fluid. monitor CPK levels. Left kidney is not identified. No hydronephrosis on right side on renal ultrasound. Negative hydronephrosis on CT CT abdomen/pelvis revealed bilateral. Calyces cyst. Retroperitoneal hematoma. will replace electrolytes as needed. Severe sepsis Multiple pressure wounds, ?cellulitis abdomen. UTI -E. coli Blood cultures coag negative staph question contaminant on piperacillin/tazobactam. Currently holding vancomycin Follow-up blood and urine cultures. -Blood cultures no growth to date with urine gram-negative isabella on 02/03. Wound 02/04 gram-negative isabella ID following. Normocytic anemia Thrombocytopenia Monitor CBC. No indication for transfusion of blood products at this time Stress hyperglycemia TSH 0.87 Sliding scale insulin with Accu-Cheks to maintain euglycemia with Novulog Grade 2-3 pressure injury to right hip Grade 2 pressure injury to right breast Elevated BMI Osteoporosis/osteoarthritis Left medial foot and knee Deep Tissue Injury: - [place] Cavilon skin barrier film BID and leave open to air & free from pressure. Right hip Deep Tissue Injury Q3D and PRN for saturation or dislodgement: - Cleanse with wound cleanser and pat dry with gauze. - Apply MAXORB EXTRA AG over wound bed. - [place] periwound with Cavilon skin barrier film and allow to dry. - Cover and secure Maxorb Extra Ag with bordered gauze dressing (primapore). PT evaluate and treat Weight loss encouraged PROPH: SCD/holding pharmacological prophylaxis secondary to retroperitoneal hematoma. Famotidine for stress ulcer prophylaxis. Discharge Planning dc planning to SNF in 2-3 days if continues to improve. Michael Johnson MD February 08, 2018 10:31
[2018-02-08] MEDS ORDERED: POTASSIUM CHLORIDE 20 MEQ CONTROLLED RELEASE TAB PO ONE ×3 (10:45→19:00)
[2018-02-08] MEDS ORDERED: PHARMACY ORDERED LAB ONE (14:45)
[2018-02-08] MEDS: FAMOTIDINE 20 MG TAB PO SCH (22:19)
[2018-02-09] VITALS (11 sets, daily range): BP systolic 121–144; BP diastolic 58–71; PULSE 62–100; RESP 18–24; TEMP 98.1–98.4; O2SAT 97–99
[2018-02-09] MEDS: CHLORHEXIDINE GLUCONATE 2 % 1 PACK (2 CLOTHS) TOP SCH (04:00)
[2018-02-09] MEDS: PIPERACIL-TAZO 3.375 GM PREMIX 50 ML IV SCH ×3 (06:34→16:14)
[2018-02-09 07:50] LABS: CALCIUM 7.6 MG/DL (8.5-10.1); CREATININE 0.45 MG/DL (0.50-1.00)
[2018-02-09] MEDS: INSULIN ASPART SUPPLEMENTAL SCALE SQ SCH ×4 (08:00→21:00)
[2018-02-09] MEDS: SODIUM CHLOR 0.45% 1000 ML INJ 1,000 ML IV SCH ×2 (08:49→22:09)
[2018-02-09] MEDS: DILTIAZEM HCL 60 MG TAB PO SCH ×4 (08:51→22:07)
[2018-02-09] MEDS: DOCUSATE SODIUM 50 MG/SENNA 8.6 MG TAB PO SCH ×2 (08:51→21:00)
[2018-02-09] MEDS: SODIUM CHLORIDE 0.9% FLUSH 10 ML FLUSH IV FLUSH SCH ×3 (08:52→21:00)
--- NOTE | 2018-02-09 11:07 | HHI.PR ---
Subjective Remarks in no distress. looks and feels better today. no fever. Objective Vitals Vital Signs Date Time Temp Pulse Resp B/P (MAP) Pulse Ox O2 Delivery O2 Flow Rate FiO2 02/09/18 10:03 98 02/09/18 09:31 Room Air 02/09/18 08:22 100 02/09/18 08:07 98.1 91 18 131/58 (82) 98 02/09/18 04:00 97 02/09/18 04:00 98.2 90 22 132/63 (86) 98 02/09/18 00:00 98.3 88 20 144/63 (90) 98 02/08/18 23:51 74 02/08/18 20:00 98.6 104 20 134/72 (92) 95 02/08/18 20:00 Room Air 02/08/18 16:15 98.4 84 18 140/64 (89) 98 02/08/18 16:00 111 02/08/18 12:07 98.1 77 18 140/60 (86) 99 02/08/18 12:00 90 I/O 02/08/18 02/08/18 02/08/18 02/09/18 02/09/18 02/09/18 07:00 15:00 23:00 07:00 15:00 23:00 Intake Total 240 ml 720 ml 480 ml Output Total 1000 ml 1300 ml 2950 ml Balance -760 ml -580 ml -2470 ml Intake Oral 240 ml 720 ml 480 ml Output Urine Total 1000 ml 1300 ml 2950 ml # Bowel Movements 1 1 3 Result Diagram: 02/08/18 0637 02/09/18 0635 Imaging Last Impressions Brain MRI 02/06/18 0000 Signed Impressions: CONCLUSION: Atrophy and chronic appearing ischemic white matter changes. No acute findings. Chest X-Ray 02/04/18 1500 Signed Impressions: Service Date/Time: Sunday, February 04, 2018 15:08 - CONCLUSION: 1. Right IJ central line in good position without pneumothorax. Todd Young MD Renal Ultrasound 02/04/18 0000 Signed Impressions: Service Date/Time: Sunday, February 04, 2018 08:09 - CONCLUSION: 1. No evidence of hydronephrosis the right kidney. 2. Left kidney is not visualized. Slim Pizano MD Chest CT 02/04/18 0000 Signed Impressions: Service Date/Time: Sunday, February 04, 2018 20:04 - CONCLUSION: 1. Minimal left lung base atelectasis. 2. Trace anterior pericardial effusion. 3. Prominent main pulmonary artery consistent with some degree of pulmonary artery hypertension. Todd Young MD Abdomen/Pelvis CT 02/04/18 0000 Signed Impressions: Service Date/Time: Sunday, February 04, 2018 20:04 - CONCLUSION: 1. Retroperitoneal high density stranding extending from the inferior perinephric region along the anterior psoas consistent with retroperitoneal hematoma. Uncertain if this originates from or abuts the kidney although suspect the latter. 2. Markedly distended gallbladder otherwise appears unremarkable by CT. Consider HIDA scan if there is significant clinical concern regarding cystic duct obstruction. 3. Moderate stool in the rectum. 4. Compression fractures of L2 and L3 vertebral bodies of unknown chronicity. Todd Young MD Pelvis X-Ray 02/03/18 1348 Signed Impressions: Service Date/Time: Saturday, February 03, 2018 15:01 - CONCLUSION: 1. No acute fracture or dislocation. Todd Young MD Head CT 02/03/18 1348 Signed Impressions: Service Date/Time: Saturday, February 03, 2018 14:27 - CONCLUSION: 1. Senescent changes without acute intracranial abnormality. Todd Young MD Objective Remarks GENERAL: This is a well-nourished, well-developed patient, in no apparent distress. CARDIOVASCULAR: Regular rate and regular rhythm without murmurs, gallops, or rubs. RESPIRATORY: Clear to auscultation. Breath sounds equal bilaterally. No wheezes , rales, or rhonchi. GASTROINTESTINAL: Abdomen soft, non-tender, nondistended. Normal, active bowel sounds MUSCULOSKELETAL: right knee is swollen and tender. NEURO: mildly lethargic but easily arousable. Procedures central line placement/ femoral artery catheter placement. Medications and IVs Inpatient Medications Acetaminophen (Tylenol) 650 mg Q6H PRN PO FEVER >100F; Start 02/03/18 at 19:00 Acetaminophen/ Hydrocodone Bitart (Traer 5-325 Mg) 2 tab Q4H PRN PO PAIN 8-10 ; Start 02/07/18 at 11:15 Albuterol Sulfate (Albuterol Neb) 2.5 mg Q2HR NEB PRN INH SOB/WHEEZING; Start 02/03/18 at 19:00 Albuterol/ Ipratropium (Duoneb Neb) 1 ampule Q6HR NEB INH Last administered on 02/07/18at 20:00; Start 02/03/18 at 22:00; Stop 02/07/18 at 21:59; Status DC Bisacodyl (Dulcolax Supp) 10 mg DAILY PRN RECTAL SEVERE CONSITIPATION; Start at 19:00 Chlorhexidine Gluconate (Chlorhexidine 2% Cloth) 3 pack UNSCH PRN TOP HYGIENIC CARE; Start 02/03/18 at 19:00 Dextrose (D50w (Vial) Inj) 50 ml UNSCH PRN IV PUSH HYPOGLYCEMIA-SEE COMMENTS; Start 02/04/18 at 11:30 Diatrizoate Meglum/ Diatrizoate Sod ( Gastroview Liq) 18 ml ONCE ONCE PO Last administered on 02/04/18at 13:16; Start 02/04/18 at 12:00; Stop 02/04/18 at 12:01; Status DC Digoxin (Lanoxin Inj) 0.25 mg DAILY IV PUSH Last administered on 02/05/18at 08: 26; Start 02/04/18 at 20:45; Stop 02/05/18 at 11:18; Status DC Diltiazem HCl (Cardizem) 60 mg QID PO Last administered on 02/09/18at 08:51; Start 02/05/18 at 13:00 Famotidine (Pepcid Inj) 20 mg Q12HR IV PUSH Last administered on 02/03/18at 22: 25; Start 02/03/18 at 21:00; Stop 02/04/18 at 08:40; Status DC Famotidine (Pepcid) 20 mg HS PO Last administered on 02/08/18at 22:19; Start at 21:00 Glucagon (Glucagon Inj) 1 mg UNSCH PRN OTHER HYPOGLYCEMIA-SEE COMMENTS; Start 02/04/18 at 11:30 Glycerin (Glycerin Adult Supp) 2 gm ONCE ONCE RECTAL Last administered on 02/05at 12:10; Start 02/05/18 at 06:30; Stop 02/05/18 at 06:31; Status DC Heparin Sodium (Porcine) (Heparin Inj) 5,000 units Q12H SQ Last administered on 02/04/18at 21:25; Start 02/03/18 at 20:00; Stop 02/05/18 at 06:28; Status DC Insulin Aspart (NovoLOG SUPPLEMENTAL SCALE) 1 ACHS SLIDING SCALE SQ Last administered on 02/08/18at 22:20; Start 02/04/18 at 12:00 Labetalol HCl (Trandate Inj) 10 mg Q1HR PRN IV PUSH SBP>160, DBP>90, HR>65; Start 02/04/18 at 11:30 Lactulose (Lactulose Liq) 30 ml DAILY PRN PO SEVERE CONSITIPATION; Start at 19:00 Magnesium Hydroxide (Milk Of Magnesia Liq) 30 ml Q12H PRN PO Mild constipation ; Start 02/03/18 at 19:00 Metoprolol Tartrate (Lopressor Inj) 5 mg ONCE ONCE IV PUSH Last administered on 02/04/18at 19:20; Start 02/04/18 at 19:15; Stop 02/04/18 at 19:16; Status DC Miscellaneous Information ([facility] Nursing Information) 1 Q361D XX ; Start at 19:00 Morphine Sulfate (Morphine Inj) 2 mg Q4H PRN IV PUSH BREAKTHROUGH PAIN; Start 02/07/18 at 11:15 Nitroglycerin (Nitroglycerin 2% Oint) 2 inch Q6HR PRN TOPICAL SBP>160, DBP>90; Start 02/04/18 at 11:30 Padimate O (Chapstick) 1 applic UNSCH PRN TOPICAL dry lips Last administered on 02/05/18at 12:10; Start 02/05/18 at 07:00 Pharmacy Profile Note 0 ml @ 0 mls/hr UNSCH OTHER ; Start 02/03/18 at 18:45; Stop 02/05/18 at 23:28; Status DC Phenylephrine HCl 160 mg/Dextrose 500 ml @ 7.5 mls/hr TITRATE PRN IV Blood pressure management Last administered on 02/04/18at 14:30; Start 02/04/18 at 14: 15; Stop 02/07/18 at 11:22; Status DC Piperacillin Sod/ Tazobactam Sod 50 ml @ 100 mls/hr Q6H IV Last administered on 02/09/18 06:34; Start 02/03/18 at 23:00 Potassium Phosphate 30 mmol/ Sodium Chloride 260 ml @ 43.333 mls/ hr ONCE ONCE IV Last administered on 02/05/18at 16:50; Start 02/05/18 at 15:00; Stop at 20:59; Status DC Potassium Chloride (KCl) 40 meq ONCE ONCE PO Last administered on 02/08/18at 17 :43; Start 02/08/18 at 19:00; Stop 02/08/18 at 19:01; Status DC Pravastatin Sodium (Pravachol) 20 mg DAILY PO Last administered on 02/04/18at 09 :08; Start 02/04/18 at 09:00; Status Future Hold Senna/Docusate Sodium (Jeanette-Colace) 1 tab BID PO Last administered on at 08:51; Start 02/03/18 at 21:00 Sennosides (Senokot) 17.2 mg Q12H PRN PO Moderate constipation; Start 02/03/18 at 19:00 Sodium Chloride 1,000 ml @ 84 mls/hr [id number] IV Last administered on at 08:49; Start 02/06/18 at 09:00 Sodium Chloride (NS Flush) UNSCH PRN IV FLUSH SEE PROTOCOL; Start 02/04/18 at 15:00 Sodium Chloride 38.5 meq/Sterile Water 1,009.625 ml @ 100 mls/hr Q10H6M IV Last administered on 02/05/18at 10:24; Start 02/04/18 at 10:00; Stop 02/05/18 at 13:06; Status DC Terbutaline Sulfate (Brethine Inj) 1 mg UNSCH PRN SQ For Extravasation; Start 02/04/18 at 14:15 Vancomycin HCl 1250 mg/Sodium Chloride 262.5 ml @ 250 mls/hr ONCE ONCE IV Last administered on 02/03/18at 22:26; Start 02/03/18 at 21:00; Stop 02/03/18 at 22:02; Status DC Vancomycin HCl 1500 mg/Sodium Chloride 515 ml @ 257.5 mls/ hr Q24H IV Last administered on 02/05/18at 16:51; Start 02/05/18 at 15:00; Stop 02/05/18 at 23:28 ; Status DC Date of Insertion: February 04, 2018 Line: Central Venous Catheter Side: Right Location: Internal, Jugular A/P Assessment and Plan Acute toxic metabolic encephalopathy- improving slowly. Hard of hearing Presbycusis Underlying dementia disorder? CT brain 02/03 shows diffuse moderate atrophy but no acute changes. MRI brain with no acute abnormality. Ammonia level was less than 10 continue to monitor. Essential HTN at baseline Hyperlipidemia. A. fib with RVR Hold losartan unknown dosage due to acute kidney injury Hold amlodipine 5 mg daily as BP was low Holding pravastatin due to muscle breakdown Scheduled oral diltiazem 60 mg p.o. 4 times daily Routine limited 2D echocardiogram ordered TSH 0.87 Appreciate cardiology consultation recommendation Hypoalbuminemia Elevated transaminases Retroperitoneal hematoma/anterior psoas muscle Speech therapy evaluate and treat Famotidine for GI prophylaxis Docusate sodium/senna 1 tablet twice daily for bowel regimen Hemoglobin fairly stable- Hyperosmolar hypernatremia Acute kidney injury rhabdomyolysis- improving. hypokalemia-replaced. continue IV fluid. monitor CPK levels. Left kidney is not identified. No hydronephrosis on right side on renal ultrasound. Negative hydronephrosis on CT CT abdomen/pelvis revealed bilateral. Calyces cyst. Retroperitoneal hematoma. Severe sepsis Multiple pressure wounds, ?cellulitis abdomen. UTI -E. coli Blood cultures coag negative staph question contaminant on piperacillin/tazobactam. Currently holding vancomycin Follow-up blood and urine cultures. -Blood cultures no growth to date with urine gram-negative isabella on 02/03. Wound 02/04 with proteus. ID following. Normocytic anemia Thrombocytopenia Monitor CBC. No indication for transfusion of blood products at this time Stress hyperglycemia TSH 0.87 Sliding scale insulin with Accu-Cheks to maintain euglycemia with Novulog Grade 2-3 pressure injury to right hip Grade 2 pressure injury to right breast Elevated BMI Osteoporosis/osteoarthritis Left medial foot and knee Deep Tissue Injury: - [place] Cavilon skin barrier film BID and leave open to air & free from pressure. Right hip Deep Tissue Injury Q3D and PRN for saturation or dislodgement: - Cleanse with wound cleanser and pat dry with gauze. - Apply MAXORB EXTRA AG over wound bed. - [place] periwound with Cavilon skin barrier film and allow to dry. - Cover and secure Maxorb Extra Ag with bordered gauze dressing (primapore). PT evaluate and treat Weight loss encouraged PROPH: SCD/holding pharmacological prophylaxis secondary to retroperitoneal hematoma. Famotidine for stress ulcer prophylaxis. Discharge Planning dc planning to SNF within the next 24 hrs- awaiting ID recommendations. see med list. f/u; pcp/ cardiology. d/w the patient and . time spent 35 min. Michael Johnson MD February 09, 2018 11:06
[2018-02-09] MEDS ORDERED: HYDR-3516 PO ×2 (11:08→12:29)
[2018-02-09] MEDS ORDERED: CARD240C6 PO (11:08)
--- NOTE | 2018-02-09 12:30 | HHI.DS ---
Discharge Summary Admission Date February 03, 2018 at 16:23 Discharge Date: February 09, 2018 Admitting Diagnosis Acute renal failure/UTI/severe sepsis/hypernatremia (1) UTI (urinary tract infection) ICD Code: N39.0 - Urinary tract infection, site not specified Diagnosis: Principal Status: Acute Procedures central line placement/ femoral artery catheter placement. Brief History - From Admission 82-year-old female who is brought to [facility] emergency department after she was found down on the floor of her kitchen. She was unable to recall circumstances of the fall but is confused. She has pressure wounds that are consistent with being on the floor for several days and she was covered in urine and feces. Her daughter last saw her on Monday 6 days ago and had not been in contact with her since. Her daughter states she has had trip and falls several times in the past and has been unable to get herself up. She was hypotensive with blood pressures in the 60s when [facility] arrived. They placed a peripheral IV and started 1 L normal saline bolus. An additional 1 L normal saline bolus was ordered. ED workup reveals urinalysis consistent with UTI, acute kidney injury with creatinine of 1.58 and sodium 157. She received Zosyn. Her blood pressure is now 113/58 with heart rate 119. CBC/BMP: 02/08/18 0637 02/09/18 0635 Significant Findings Laboratory Tests Test 02/06/18 18:00 02/07/18 04:45 02/07/18 10:04 02/08/18 06:37 Red Blood Count 3.46 MIL/MM3 (4.00-5.30) 3.54 MIL/MM3 (4.00-5.30) Hemoglobin 10.1 GM/DL (11.6-15.3) 10.3 GM/DL (11.6-15.3) Hematocrit 30.7 % (35.0-46.0) 31.5 % (35.0-46.0) Platelet Count 134 TH/MM3 (150-450) Random Glucose 111 MG/DL (74-106) 142 MG/DL (74-106) Total Protein 4.7 GM/DL (6.4-8.2) Albumin 1.8 GM/DL (3.4-5.0) Calcium Level 7.8 MG/DL (8.5-10.1) 7.6 MG/DL (8.5-10.1) Phosphorus Level 2.3 MG/DL (2.5-4.9) Aspartate Amino Transf (AST/SGOT) 175 U/L (15-37) Alanine Aminotransferase (ALT/SGPT) 84 U/L (10-53) Potassium Level 3.4 MEQ/L (3.5-5.1) 2.9 MEQ/L (3.5-5.1) Chloride Level 113 MEQ/L (98-107) 110 MEQ/L (98-107) Total Creatine Kinase 2086 U/L (26-192) 1671 U/L (26-192) Creatine Kinase MB 57.5 NG/ML (0.5-3.6) 42.7 NG/ML (0.5-3.6) Neutrophils (%) (Auto) 81.6 % (16.0-70.0) Neutrophils # (Auto) 8.4 TH/MM3 (1.8-7.7) Test 02/09/18 06:35 Blood Urea Nitrogen 4 MG/DL (7-18) Creatinine 0.45 MG/DL (0.50-1.00) Calcium Level 7.6 MG/DL (8.5-10.1) Sodium Level 146 MEQ/L (136-145) Chloride Level 113 MEQ/L (98-107) Total Creatine Kinase 482 U/L (26-192) Creatine Kinase MB 18.0 NG/ML (0.5-3.6) Imaging Last Impressions Brain MRI 02/06/18 0000 Signed Impressions: CONCLUSION: Atrophy and chronic appearing ischemic white matter changes. No acute findings. Chest X-Ray 02/04/18 1500 Signed Impressions: Service Date/Time: Sunday, February 04, 2018 15:08 - CONCLUSION: 1. Right IJ central line in good position without pneumothorax. Todd Young MD Renal Ultrasound 02/04/18 0000 Signed Impressions: Service Date/Time: Sunday, February 04, 2018 08:09 - CONCLUSION: 1. No evidence of hydronephrosis the right kidney. 2. Left kidney is not visualized. Slim Pizano MD Chest CT 02/04/18 0000 Signed Impressions: Service Date/Time: Sunday, February 04, 2018 20:04 - CONCLUSION: 1. Minimal left lung base atelectasis. 2. Trace anterior pericardial effusion. 3. Prominent main pulmonary artery consistent with some degree of pulmonary artery hypertension. Todd Young MD Abdomen/Pelvis CT 02/04/18 0000 Signed Impressions: Service Date/Time: Sunday, February 04, 2018 20:04 - CONCLUSION: 1. Retroperitoneal high density stranding extending from the inferior perinephric region along the anterior psoas consistent with retroperitoneal hematoma. Uncertain if this originates from or abuts the kidney although suspect the latter. 2. Markedly distended gallbladder otherwise appears unremarkable by CT. Consider HIDA scan if there is significant clinical concern regarding cystic duct obstruction. 3. Moderate stool in the rectum. 4. Compression fractures of L2 and L3 vertebral bodies of unknown chronicity. Todd Young MD Pelvis X-Ray 02/03/18 1348 Signed Impressions: Service Date/Time: Saturday, February 03, 2018 15:01 - CONCLUSION: 1. No acute fracture or dislocation. Todd Young MD Head CT 02/03/18 1348 Signed Impressions: Service Date/Time: Saturday, February 03, 2018 14:27 - CONCLUSION: 1. Senescent changes without acute intracranial abnormality. Todd Young MD PE at Discharge GENERAL: This is a well-nourished, well-developed patient, in no apparent distress. CARDIOVASCULAR: Regular rate and regular rhythm without murmurs, gallops, or rubs. RESPIRATORY: Clear to auscultation. Breath sounds equal bilaterally. No wheezes , rales, or rhonchi. GASTROINTESTINAL: Abdomen soft, non-tender, nondistended. Normal, active bowel sounds MUSCULOSKELETAL: right knee is swollen and tender. NEURO: mildly lethargic but easily arousable. Hospital Course Acute toxic metabolic encephalopathy- improving slowly. Hard of hearing Presbycusis Underlying dementia disorder? CT brain 02/03 shows diffuse moderate atrophy but no acute changes. MRI brain with no acute abnormality. Ammonia level was less than 10 continue to monitor. Essential HTN at baseline Hyperlipidemia. A. fib with RVR Hold losartan unknown dosage due to acute kidney injury Hold amlodipine 5 mg daily as BP was low Holding pravastatin due to muscle breakdown Scheduled oral diltiazem 60 mg p.o. 4 times daily Routine limited 2D echocardiogram ordered TSH 0.87 Appreciate cardiology consultation recommendation Hypoalbuminemia Elevated transaminases Retroperitoneal hematoma/anterior psoas muscle Speech therapy evaluate and treat Famotidine for GI prophylaxis Docusate sodium/senna 1 tablet twice daily for bowel regimen Hemoglobin fairly stable- Hyperosmolar hypernatremia Acute kidney injury rhabdomyolysis- improving. hypokalemia-replaced. continue IV fluid. monitor CPK levels. Left kidney is not identified. No hydronephrosis on right side on renal ultrasound. Negative hydronephrosis on CT CT abdomen/pelvis revealed bilateral. Calyces cyst. Retroperitoneal hematoma. Severe sepsis Multiple pressure wounds, ?cellulitis abdomen. UTI -E. coli Blood cultures coag negative staph question contaminant on piperacillin/tazobactam. Currently holding vancomycin Follow-up blood and urine cultures. -Blood cultures no growth to date with urine gram-negative isabella on 02/03. Wound 02/04 with proteus. ID following. Normocytic anemia Thrombocytopenia Monitor CBC. No indication for transfusion of blood products at this time Stress hyperglycemia TSH 0.87 Sliding scale insulin with Accu-Cheks to maintain euglycemia with Novulog Grade 2-3 pressure injury to right hip Grade 2 pressure injury to right breast Elevated BMI Osteoporosis/osteoarthritis Left medial foot and knee Deep Tissue Injury: - [place] Cavilon skin barrier film BID and leave open to air & free from pressure. Right hip Deep Tissue Injury Q3D and PRN for saturation or dislodgement: - Cleanse with wound cleanser and pat dry with gauze. - Apply MAXORB EXTRA AG over wound bed. - [place] periwound with Cavilon skin barrier film and allow to dry. - Cover and secure Maxorb Extra Ag with bordered gauze dressing (primapore). PT evaluate and treat Weight loss encouraged Pt Condition on Discharge: Fair Discharge Disposition: Discharge to SNF Discharge Time: > 30 minutes Discharge Instructions DIET: Follow Instructions for: Heart Healthy Diet Activities you can perform: Regular-No Restrictions Michael Johnson MD February 09, 2018 12:30
--- NOTE | 2018-02-09 17:17 | HHI.IDPN ---
Subjective Subjective Remarks cont to have diarrjhea C.diff neg no fever Antibiotics zosyn Allergies: Coded Allergies: No Known Allergies (Verified Allergy, Unknown, 02/03/18) Objective . Vital Signs Date Time Temp Pulse Resp B/P (MAP) Pulse Ox O2 Delivery O2 Flow Rate FiO2 02/09/18 12:16 98.2 76 18 141/63 (89) 99 02/09/18 12:00 80 02/09/18 10:03 98 02/09/18 09:31 Room Air 02/09/18 08:22 100 02/09/18 08:07 98.1 91 18 131/58 (82) 98 02/09/18 04:00 97 02/09/18 04:00 98.2 90 22 132/63 (86) 98 02/09/18 00:00 98.3 88 20 144/63 (90) 98 02/08/18 23:51 74 02/08/18 20:00 98.6 104 20 134/72 (92) 95 02/08/18 20:00 Room Air . Laboratory Tests Test 02/08/18 06:37 White Blood Count 10.3 TH/MM3 Red Blood Count 3.54 MIL/MM3 Hemoglobin 10.3 GM/DL Hematocrit 31.5 % Mean Corpuscular Volume 88.8 FL Mean Corpuscular Hemoglobin 29.1 PG Mean Corpuscular Hemoglobin Concent 32.8 % Red Cell Distribution Width 14.5 % Platelet Count 165 TH/MM3 Mean Platelet Volume 9.0 FL Neutrophils (%) (Auto) 81.6 % Lymphocytes (%) (Auto) 9.8 % Monocytes (%) (Auto) 5.6 % Eosinophils (%) (Auto) 2.7 % Basophils (%) (Auto) 0.3 % Neutrophils # (Auto) 8.4 TH/MM3 Lymphocytes # (Auto) 1.0 TH/MM3 Monocytes # (Auto) 0.6 TH/MM3 Eosinophils # (Auto) 0.3 TH/MM3 Basophils # (Auto) 0.0 TH/MM3 CBC Comment DIFF FINAL Differential Comment Laboratory Tests Test 02/08/18 06:37 02/09/18 06:35 Blood Urea Nitrogen 9 MG/DL 4 MG/DL Creatinine 0.61 MG/DL 0.45 MG/DL Random Glucose 142 MG/DL 89 MG/DL Calcium Level 7.6 MG/DL 7.6 MG/DL Sodium Level 144 MEQ/L 146 MEQ/L Potassium Level 2.9 MEQ/L 3.6 MEQ/L Chloride Level 110 MEQ/L 113 MEQ/L Carbon Dioxide Level 22.6 MEQ/L 25.0 MEQ/L Anion Gap 11 MEQ/L 8 MEQ/L Estimat Glomerular Filtration Rate 94 ML/MIN 134 ML/MIN Total Creatine Kinase 1671 U/L 482 U/L Creatine Kinase MB 42.7 NG/ML 18.0 NG/ML Creatine Kinase MB % 2.6 % 3.7 % Imaging Last Impressions Brain MRI 02/06/18 0000 Signed Impressions: CONCLUSION: Atrophy and chronic appearing ischemic white matter changes. No acute findings. Chest X-Ray 02/04/18 1500 Signed Impressions: Service Date/Time: Sunday, February 04, 2018 15:08 - CONCLUSION: 1. Right IJ central line in good position without pneumothorax. Todd Young MD Renal Ultrasound 02/04/18 0000 Signed Impressions: Service Date/Time: Sunday, February 04, 2018 08:09 - CONCLUSION: 1. No evidence of hydronephrosis the right kidney. 2. Left kidney is not visualized. Slim Pizano MD Chest CT 02/04/18 0000 Signed Impressions: Service Date/Time: Sunday, February 04, 2018 20:04 - CONCLUSION: 1. Minimal left lung base atelectasis. 2. Trace anterior pericardial effusion. 3. Prominent main pulmonary artery consistent with some degree of pulmonary artery hypertension. Todd Young MD Abdomen/Pelvis CT 02/04/18 0000 Signed Impressions: Service Date/Time: Sunday, February 04, 2018 20:04 - CONCLUSION: 1. Retroperitoneal high density stranding extending from the inferior perinephric region along the anterior psoas consistent with retroperitoneal hematoma. Uncertain if this originates from or abuts the kidney although suspect the latter. 2. Markedly distended gallbladder otherwise appears unremarkable by CT. Consider HIDA scan if there is significant clinical concern regarding cystic duct obstruction. 3. Moderate stool in the rectum. 4. Compression fractures of L2 and L3 vertebral bodies of unknown chronicity. Todd Young MD Pelvis X-Ray 02/03/18 1348 Signed Impressions: Service Date/Time: Saturday, February 03, 2018 15:01 - CONCLUSION: 1. No acute fracture or dislocation. Todd Young MD Head CT 02/03/18 1348 Signed Impressions: Service Date/Time: Saturday, February 03, 2018 14:27 - CONCLUSION: 1. Senescent changes without acute intracranial abnormality. Todd Young MD Physical Exam CONSTITUTIONAL/GENERAL: This is an adequately nourished patient, in no apparent distress. TUBES/LINES/DRAINS: SKIN: No jaundice, rashes, . Multiple ecchymoses abdomen, R breast. Back eschar , dry noted. No open wounds seen Skin temperature appropriate. Not diaphoretic. R thigh wound with necrotic skin, serous odorless drainage, no e/o infection CARDIOVASCULAR: Regular rate and rhythm without murmurs, gallops, or rubs. No JVD. Peripheral pulses symmetric. RESPIRATORY/CHEST: Symmetric, unlabored respirations. Clear to auscultation. Breath sounds equal bilaterally. No wheezes, rales, or rhonchi. GASTROINTESTINAL: Abdomen soft, non-tender, nondistended. No hepato-splenomegaly , or palpable masses. No guarding. Bowel sounds present. Incontinent of large amount of very liquid brown stool - dignishild in plcae GENITOURINARY: Without palpable bladder distension. MUSCULOSKELETAL: Extremities without clubbing, cyanosis, 1+edema. No joint tenderness or effusion noted. No calf tenderness. No mottling or clubbing. LYMPHATICS: No palpable cervical or supraclavicular adenopathy. NEUROLOGICAL: Awake and alert. Less confused Motor and sensory grossly within normal limits. Not follows commands. Incoherent speech . Moves all extremities. PSYCHIATRIC: calm cooperative Assessment & Plan Remarks Found down Sepsis is most likely reasdon for her AMS UTI appears to be the source of sepsis E.coli UTI, S levaqione Pressuure wounds, Low grade coag neg staph bacteremia, likley contaminant Retroperitoneal hemaotoma / traumatic Diarrhea dc zosyn, Levaquine OK to dc home rechk stool for C.diff Discussed Condition With Stephanie Villanueva MD February 09, 2018 17:17
--- NOTE | 2018-02-09 18:03 | ECHRPT ---
Indication: EF CHF CONCLUSIONS Normal left ventricular size. Moderate concentric left ventricular hypertrophy. The left ventricular systolic function is normal with an estimated ejection fraction in the range of 55-60%. The left atrial size is moderately dilated. Mitral annular calcification is present. Mitral annular calcification is present. [id number] mitral valve regurgitation. Mild aortic valve regurgitation. Aortic valve sclerosis is present. There is trace tricuspid valve regurgitation. The pulmonary valve is not well visualized. BP: / HR: Rhythm: MEASUREMENTS (Male / Female) Normal Values Technical Quality: 2D ECHO LV Diastolic Diameter PLAX 4.1 cm 4.2 - 5.9 / 3.9 - 5.3 cm LV Systolic Diameter PLAX 3.1 cm IVS Diastolic Thickness 1.5 cm 0.6 - 1.0 / 0.6 - 0.9 cm LVPW Diastolic Thickness 0.6 cm 0.6 - 1.0 / 0.6 - 0.9 cm LV Relative Wall Thickness 0.5 DOPPLER AV Peak Velocity 262.0 cm/s AV Peak Gradient 27.5 mmHg AV Mean Gradient 12.0 mmHg AV Velocity Time Integral 43.2 cm LVOT Peak Velocity 222.0 cm/s LVOT Peak Gradient 19.7 mmHg LVOT Velocity Time Integral 39.7 cm MV Peak Velocity 152.0 cm/s MV Peak Gradient 9.2 mmHg MV Mean Velocity 80.6 cm/s MV Mean Gradient 3.0 mmHg Mitral E Point Velocity 80.2 cm/s Mitral A Point Velocity 110.0 cm/s Mitral E to A Ratio 0.7 TR Peak Velocity 335.0 cm/s TR Peak Gradient 44.9 mmHg FINDINGS LEFT VENTRICLE Normal left ventricular size. Moderate concentric left ventricular hypertrophy. The left ventricular systolic function is normal with an estimated ejection fraction in the range of 55-60%. RIGHT VENTRICLE Normal right ventricular size and systolic function. LEFT ATRIUM The left atrial size is moderately dilated. RIGHT ATRIUM The right atrial size is normal. ATRIAL SEPTUM Normal atrial septal thickness without atrial level shunting by limited color doppler interrogation. AORTA The aortic root and proximal ascending aorta are normal in size on limited imaging. MITRAL VALVE Mitral annular calcification is present. Mitral annular calcification is present. [id number]-[id number] mitral valve regurgitation. AORTIC VALVE Mild aortic valve regurgitation. Aortic valve sclerosis is present. TRICUSPID VALVE There is trace tricuspid valve regurgitation. PULMONARY VALVE The pulmonary valve is not well visualized. VESSELS The inferior vena cava is normal in size. PERICARDIUM No pericardial effusion. Ricco Villanueva MD, FACC Edited by: hadoop administrator hadoop administrator (Electronically Signed) Final Date:07 Feb 2018 13:28 Amended: 09 Feb 2018 18:02
[2018-02-09] MEDS: FAMOTIDINE 20 MG TAB PO SCH (22:08)
[2018-02-09] MEDS: ACETAMINOPHEN/HYDROcodone 325 MG/5 MG TAB PO PRN (22:09)
[2018-02-10] VITALS (8 sets, daily range): BP systolic 121–159; BP diastolic 58–83; PULSE 74–104; RESP 16–22; TEMP 97.4–97.9; O2SAT 93–98
[2018-02-10] MEDS: CHLORHEXIDINE GLUCONATE 2 % 1 PACK (2 CLOTHS) TOP SCH (04:00)
[2018-02-10] MEDS: INSULIN ASPART SUPPLEMENTAL SCALE SQ SCH ×4 (08:00→21:00)
[2018-02-10] MEDS: DOCUSATE SODIUM 50 MG/SENNA 8.6 MG TAB PO SCH ×2 (09:00→21:00)
[2018-02-10] MEDS: SODIUM CHLORIDE 0.9% FLUSH 10 ML FLUSH IV FLUSH SCH ×3 (09:00→21:28)
--- NOTE | 2018-02-10 09:23 | HHI.PR ---
Subjective Remarks in no acute distress. no fever. has some ' pain to the mouth'. Objective Vitals Vital Signs Date Time Temp Pulse Resp B/P (MAP) Pulse Ox O2 Delivery O2 Flow Rate FiO2 02/10/18 04:00 97.4 75 22 121/75 (90) 98 02/10/18 04:00 92 02/10/18 00:00 97.7 75 22 125/58 (80) 98 02/10/18 00:00 74 02/09/18 20:00 92 02/09/18 20:00 98.4 62 24 131/60 (83) 97 02/09/18 20:00 Room Air 02/09/18 17:39 99 21 02/09/18 16:07 98.2 83 18 121/71 (88) 98 02/09/18 16:00 74 02/09/18 12:16 98.2 76 18 141/63 (89) 99 02/09/18 12:00 80 02/09/18 10:03 98 02/09/18 09:31 Room Air I/O 02/09/18 02/09/18 02/09/18 02/10/18 02/10/18 02/10/18 07:00 15:00 23:00 07:00 15:00 23:00 Intake Total 480 ml 600 ml Output Total 2950 ml 300 ml Balance -2470 ml 600 ml -300 ml Intake Oral 480 ml 600 ml Output Urine Total 2950 ml 300 ml # Voids 2 4 # Bowel Movements 3 2 Result Diagram: 02/08/18 0637 02/09/18 0635 Imaging Last Impressions Brain MRI 02/06/18 0000 Signed Impressions: CONCLUSION: Atrophy and chronic appearing ischemic white matter changes. No acute findings. Chest X-Ray 02/04/18 1500 Signed Impressions: Service Date/Time: Sunday, February 04, 2018 15:08 - CONCLUSION: 1. Right IJ central line in good position without pneumothorax. Todd Young MD Renal Ultrasound 02/04/18 0000 Signed Impressions: Service Date/Time: Sunday, February 04, 2018 08:09 - CONCLUSION: 1. No evidence of hydronephrosis the right kidney. 2. Left kidney is not visualized. Slim Pizano MD Chest CT 02/04/18 0000 Signed Impressions: Service Date/Time: Sunday, February 04, 2018 20:04 - CONCLUSION: 1. Minimal left lung base atelectasis. 2. Trace anterior pericardial effusion. 3. Prominent main pulmonary artery consistent with some degree of pulmonary artery hypertension. Todd Young MD Abdomen/Pelvis CT 02/04/18 0000 Signed Impressions: Service Date/Time: Sunday, February 04, 2018 20:04 - CONCLUSION: 1. Retroperitoneal high density stranding extending from the inferior perinephric region along the anterior psoas consistent with retroperitoneal hematoma. Uncertain if this originates from or abuts the kidney although suspect the latter. 2. Markedly distended gallbladder otherwise appears unremarkable by CT. Consider HIDA scan if there is significant clinical concern regarding cystic duct obstruction. 3. Moderate stool in the rectum. 4. Compression fractures of L2 and L3 vertebral bodies of unknown chronicity. Todd Young MD Pelvis X-Ray 02/03/18 1348 Signed Impressions: Service Date/Time: Saturday, February 03, 2018 15:01 - CONCLUSION: 1. No acute fracture or dislocation. Todd Young MD Head CT 02/03/18 1348 Signed Impressions: Service Date/Time: Saturday, February 03, 2018 14:27 - CONCLUSION: 1. Senescent changes without acute intracranial abnormality. Todd Young MD Objective Remarks GENERAL: This is a well-nourished, well-developed patient, in no apparent distress. CARDIOVASCULAR: Regular rate and regular rhythm without murmurs, gallops, or rubs. RESPIRATORY: Clear to auscultation. Breath sounds equal bilaterally. No wheezes , rales, or rhonchi. GASTROINTESTINAL: Abdomen soft, non-tender, nondistended. Normal, active bowel sounds MUSCULOSKELETAL: right knee is swollen and tender. NEURO: mildly lethargic but easily arousable. Procedures central line placement/ femoral artery catheter placement. Medications and IVs Inpatient Medications Acetaminophen (Tylenol) 650 mg Q6H PRN PO FEVER >100F; Start 02/03/18 at 19:00 Acetaminophen/ Hydrocodone Bitart ([place] 5-325 Mg) 2 tab Q4H PRN PO PAIN 8-10 ; Start 02/07/18 at 11:15 Albuterol Sulfate (Albuterol Neb) 2.5 mg Q2HR NEB PRN INH SOB/WHEEZING; Start 02/03/18 at 19:00 Albuterol/ Ipratropium (Duoneb Neb) 1 ampule Q6HR NEB INH Last administered on 02/07/18at 20:00; Start 02/03/18 at 22:00; Stop 02/07/18 at 21:59; Status DC Bisacodyl (Dulcolax Supp) 10 mg DAILY PRN RECTAL SEVERE CONSITIPATION; Start at 19:00 Chlorhexidine Gluconate (Chlorhexidine 2% Cloth) 3 pack UNSCH PRN TOP HYGIENIC CARE; Start 02/03/18 at 19:00 Dextrose (D50w (Vial) Inj) 50 ml UNSCH PRN IV PUSH HYPOGLYCEMIA-SEE COMMENTS; Start 02/04/18 at 11:30 Diatrizoate Meglum/ Diatrizoate Sod ( Gastroview Liq) 18 ml ONCE ONCE PO Last administered on 02/04/18at 13:16; Start 02/04/18 at 12:00; Stop 02/04/18 at 12:01; Status DC Digoxin (Lanoxin Inj) 0.25 mg DAILY IV PUSH Last administered on 02/05/18at 08: 26; Start 02/04/18 at 20:45; Stop 02/05/18 at 11:18; Status DC Diltiazem HCl (Cardizem) 60 mg QID PO Last administered on 02/09/18at 22:07; Start 02/05/18 at 13:00 Famotidine (Pepcid Inj) 20 mg Q12HR IV PUSH Last administered on 02/03/18at 22: 25; Start 02/03/18 at 21:00; Stop 02/04/18 at 08:40; Status DC Famotidine (Pepcid) 20 mg HS PO Last administered on 02/09/18at 22:08; Start at 21:00 Glucagon (Glucagon Inj) 1 mg UNSCH PRN OTHER HYPOGLYCEMIA-SEE COMMENTS; Start 02/04/18 at 11:30 Glycerin (Glycerin Adult Supp) 2 gm ONCE ONCE RECTAL Last administered on 02/05at 12:10; Start 02/05/18 at 06:30; Stop 02/05/18 at 06:31; Status DC Heparin Sodium (Porcine) (Heparin Inj) 5,000 units Q12H SQ Last administered on 02/04/18at 21:25; Start 02/03/18 at 20:00; Stop 02/05/18 at 06:28; Status DC Insulin Aspart (NovoLOG SUPPLEMENTAL SCALE) 1 ACHS SLIDING SCALE SQ Last administered on 02/08/18at 22:20; Start 02/04/18 at 12:00 Labetalol HCl (Trandate Inj) 10 mg Q1HR PRN IV PUSH SBP>160, DBP>90, HR>65; Start 02/04/18 at 11:30 Lactulose (Lactulose Liq) 30 ml DAILY PRN PO SEVERE CONSITIPATION; Start at 19:00 Levofloxacin (Levaquin) 500 mg DAILY PO ; Start 02/10/18 at 09:00; Stop 02/17/18 at 08:59 Magnesium Hydroxide (Milk Of Magnesia Liq) 30 ml Q12H PRN PO Mild constipation ; Start 02/03/18 at 19:00 Metoprolol Tartrate (Lopressor Inj) 5 mg ONCE ONCE IV PUSH Last administered on 02/04/18at 19:20; Start 02/04/18 at 19:15; Stop 02/04/18 at 19:16; Status DC Miscellaneous Information ([facility] [place] [facility]) 1 Q361D XX ; Start at 19:00 Morphine Sulfate (Morphine Inj) 2 mg Q4H PRN IV PUSH BREAKTHROUGH PAIN; Start 02/07/18 at 11:15 Nitroglycerin (Nitroglycerin 2% Oint) 2 inch Q6HR PRN TOPICAL SBP>160, DBP>90; Start 02/04/18 at 11:30 Padimate O (Chapstick) 1 applic UNSCH PRN TOPICAL dry lips Last administered on 02/05/18at 12:10; Start 02/05/18 at 07:00 Pharmacy Profile Note 0 ml @ 0 mls/hr UNSCH OTHER ; Start 02/03/18 at 18:45; Stop 02/05/18 at 23:28; Status DC Phenylephrine HCl 160 mg/Dextrose 500 ml @ 7.5 mls/hr TITRATE PRN IV Blood pressure management Last administered on 02/04/18at 14:30; Start 02/04/18 at 14: 15; Stop 5/23/18 at 11:22; Status DC Piperacillin Sod/ Tazobactam Sod 50 ml @ 100 mls/hr Q6H IV Last administered on 02/09/18at 16:14; Start 02/03/18 at 23:00; Stop 02/09/18 at 17:19; Status DC Potassium Phosphate 30 mmol/ Sodium Chloride 260 ml @ 43.333 mls/ hr ONCE ONCE IV Last administered on 02/05/18at 16:50; Start 02/05/18 at 15:00; Stop at 20:59; Status DC Potassium Chloride (KCl) 40 meq ONCE ONCE PO Last administered on 02/08/18at 17 :43; Start 02/08/18 at 19:00; Stop 02/08/18 at 19:01; Status DC Pravastatin Sodium (Pravachol) 20 mg DAILY PO Last administered on 02/04/18at 09 :08; Start 02/04/18 at 09:00; Status Future Hold Senna/Docusate Sodium (Jeanette-Colace) 1 tab BID PO Last administered on at 08:51; Start 02/03/18 at 21:00 Sennosides (Senokot) 17.2 mg Q12H PRN PO Moderate constipation; Start 02/03/18 at 19:00 Sodium Chloride 1,000 ml @ 84 mls/hr [id number] IV Last administered on at 22:09; Start 02/06/18 at 09:00 Sodium Chloride (NS Flush) UNSCH PRN IV FLUSH SEE PROTOCOL; Start 02/04/18 at 15:00 Sodium Chloride 38.5 meq/Sterile Water 1,009.625 ml @ 100 mls/hr Q10H6M IV Last administered on 02/05/18at 10:24; Start 02/04/18 at 10:00; Stop 02/05/18 at 13:06; Status DC Terbutaline Sulfate (Brethine Inj) 1 mg UNSCH PRN SQ For Extravasation; Start 02/04/18 at 14:15 Vancomycin HCl 1250 mg/Sodium Chloride 262.5 ml @ 250 mls/hr ONCE ONCE IV Last administered on 02/03/18at 22:26; Start 02/03/18 at 21:00; Stop 02/03/18 at 22:02; Status DC Vancomycin HCl 1500 mg/Sodium Chloride 515 ml @ 257.5 mls/ hr Q24H IV Last administered on 02/05/18at 16:51; Start 02/05/18 at 15:00; Stop 02/05/18 at 23:28 ; Status DC Date of Insertion: February 04, 2018 Line: Central Venous Catheter Side: Right Location: Internal, Jugular A/P Problem List: (1) UTI (urinary tract infection) ICD Code: N39.0 - Urinary tract infection, site not specified Status: Acute Assessment and Plan Acute toxic metabolic encephalopathy- improving slowly. Hard of hearing Presbycusis Underlying dementia disorder? CT brain 02/03 shows diffuse moderate atrophy but no acute changes. MRI brain with no acute abnormality. Ammonia level was less than 10 continue to monitor. Essential HTN at baseline Hyperlipidemia. A. fib with RVR Hold losartan unknown dosage due to acute kidney injury Hold amlodipine 5 mg daily as BP was low Holding pravastatin due to muscle breakdown Scheduled oral diltiazem 60 mg p.o. 4 times daily Routine limited 2D echocardiogram ordered TSH 0.87 Appreciate cardiology consultation recommendation Hypoalbuminemia Elevated transaminases Retroperitoneal hematoma/anterior psoas muscle Speech therapy evaluate and treat Famotidine for GI prophylaxis Docusate sodium/senna 1 tablet twice daily for bowel regimen Hemoglobin fairly stable- Hyperosmolar hypernatremia Acute kidney injury rhabdomyolysis- improving. hypokalemia-replaced. continue IV fluid. monitor CPK levels. Left kidney is not identified. No hydronephrosis on right side on renal ultrasound. Negative hydronephrosis on CT CT abdomen/pelvis revealed bilateral. Calyces cyst. Retroperitoneal hematoma. Severe sepsis Multiple pressure wounds, ?cellulitis abdomen. UTI -E. coli Blood cultures coag negative staph question contaminant diarrhea oral thrush was on Zosyn- now on Levaquin. Follow-up blood and urine cultures. -Blood cultures no growth to date with urine gram-negative isabella on 02/03. Wound 02/04 with proteus. stool negative for c-diff- will start on Imodium. start on Nystatin S/S. ID follow-up appreciated. Normocytic anemia Thrombocytopenia Monitor CBC. No indication for transfusion of blood products at this time Stress hyperglycemia TSH 0.87 Sliding scale insulin with Accu-Cheks to maintain euglycemia with Novulog Grade 2-3 pressure injury to right hip Grade 2 pressure injury to right breast Elevated BMI Osteoporosis/osteoarthritis Left medial foot and knee Deep Tissue Injury: - Mildred Cavilon skin barrier film BID and leave open to air & free from pressure. Right hip Deep Tissue Injury Q3D and PRN for saturation or dislodgement: - Cleanse with wound cleanser and pat dry with gauze. - Apply MAXORB EXTRA AG over wound bed. - Mildred periwound with Cavilon skin barrier film and allow to dry. - Cover and secure Maxorb Extra Ag with bordered gauze dressing (primapore). PT evaluate and treat Weight loss encouraged PROPH: SCD/holding pharmacological prophylaxis secondary to retroperitoneal hematoma. Famotidine for stress ulcer prophylaxis. Discharge Planning dc planning to SNF / tomorrow or on Monday- if diarrhea improves. Michael Johnson MD February 10, 2018 09:23
[2018-02-10] MEDS: NYSTATIN SUSP 500,000 U/5 ML CUP SWISH-SWAL SCH ×4 (09:30→21:28)
[2018-02-10] MEDS: LEVOFLOXACIN 500 MG TAB PO SCH (10:31)
[2018-02-10] MEDS: DILTIAZEM HCL 60 MG TAB PO SCH ×4 (10:31→21:28)
[2018-02-10] MEDS: ACETAMINOPHEN/HYDROcodone 325 MG/5 MG TAB PO PRN ×2 (12:30→16:17)
[2018-02-10] MEDS: LOPERAMIDE HCL 2 MG CAP PO PRN ×2 (14:05→21:28)
[2018-02-10] MEDS: SODIUM CHLOR 0.45% 1000 ML INJ 1,000 ML IV SCH (21:27)
[2018-02-10] MEDS: FAMOTIDINE 20 MG TAB PO SCH (21:28)
[2018-02-11] VITALS: BP 126/75; PULSE 87; PULSE 93; RESP 16; TEMP 97.6; O2SAT 97
[2018-02-11] MEDS: CHLORHEXIDINE GLUCONATE 2 % 1 PACK (2 CLOTHS) TOP SCH (03:27)
[2018-02-11 04:00] VITALS: BP 138/82; PULSE 102; PULSE 85; RESP 16; TEMP 97.9; O2SAT 98
[2018-02-11] MEDS: INSULIN ASPART SUPPLEMENTAL SCALE SQ SCH ×4 (08:00→20:31)
[2018-02-11] MEDS: DILTIAZEM HCL 60 MG TAB PO SCH ×4 (08:23→20:31)
[2018-02-11] MEDS: DOCUSATE SODIUM 50 MG/SENNA 8.6 MG TAB PO SCH ×2 (08:23→20:31)
[2018-02-11] MEDS: LEVOFLOXACIN 500 MG TAB PO SCH (08:23)
[2018-02-11] MEDS: NYSTATIN SUSP 500,000 U/5 ML CUP SWISH-SWAL SCH ×4 (08:23→20:42)
[2018-02-11] MEDS: SODIUM CHLOR 0.45% 1000 ML INJ 1,000 ML IV SCH ×2 (08:24→20:32)
[2018-02-11] MEDS: SODIUM CHLORIDE 0.9% FLUSH 10 ML FLUSH IV FLUSH SCH ×3 (08:24→20:32)
[2018-02-11 08:47] VITALS: BP 118/71; PULSE 104; RESP 18; TEMP 98.2; O2SAT 97
--- NOTE | 2018-02-11 09:06 | HHI.PR ---
Subjective Remarks in no acute distress. no fever. still with diarrhea. no abdominal pain, nausea or vomiting. Objective Vitals Vital Signs Date Time Temp Pulse Resp B/P (MAP) Pulse Ox O2 Delivery O2 Flow Rate FiO2 02/11/18 08:47 98.2 104 18 118/71 (87) 97 02/11/18 04:00 Room Air 02/11/18 04:00 102 02/11/18 04:00 97.9 85 16 138/82 (100) 98 02/11/18 00:00 93 02/11/18 00:00 Room Air 02/11/18 00:00 97.6 87 16 126/75 (92) 97 02/10/18 20:00 89 02/10/18 20:00 Room Air 02/10/18 20:00 97.7 90 16 133/83 (100) 98 02/10/18 17:45 93 21 02/10/18 16:00 97.9 83 17 159/71 (100) 96 02/10/18 12:00 97.7 104 17 129/76 (93) 93 02/10/18 09:20 96 21 I/O 02/10/18 02/10/18 02/10/18 02/11/18 02/11/18 02/11/18 07:00 15:00 23:00 07:00 15:00 23:00 Intake Total 650 ml 480 ml Output Total 300 ml 1000 ml 300 ml Balance -300 ml -1000 ml 350 ml 480 ml Intake Oral 650 ml 480 ml Output Urine Total 300 ml 1000 ml Stool Total 300 ml # Voids 4 4 2 # Bowel Movements 2 Result Diagram: 02/08/18 0637 02/09/18 0635 Imaging Last Impressions Brain MRI 02/06/18 0000 Signed Impressions: CONCLUSION: Atrophy and chronic appearing ischemic white matter changes. No acute findings. Chest X-Ray 02/04/18 1500 Signed Impressions: Service Date/Time: Sunday, February 04, 2018 15:08 - CONCLUSION: 1. Right IJ central line in good position without pneumothorax. Todd Young MD Renal Ultrasound 02/04/18 0000 Signed Impressions: Service Date/Time: Sunday, February 04, 2018 08:09 - CONCLUSION: 1. No evidence of hydronephrosis the right kidney. 2. Left kidney is not visualized. Slim Pizano MD Chest CT 02/04/18 0000 Signed Impressions: Service Date/Time: Sunday, February 04, 2018 20:04 - CONCLUSION: 1. Minimal left lung base atelectasis. 2. Trace anterior pericardial effusion. 3. Prominent main pulmonary artery consistent with some degree of pulmonary artery hypertension. Todd Young MD Abdomen/Pelvis CT 02/04/18 0000 Signed Impressions: Service Date/Time: Sunday, February 04, 2018 20:04 - CONCLUSION: 1. Retroperitoneal high density stranding extending from the inferior perinephric region along the anterior psoas consistent with retroperitoneal hematoma. Uncertain if this originates from or abuts the kidney although suspect the latter. 2. Markedly distended gallbladder otherwise appears unremarkable by CT. Consider HIDA scan if there is significant clinical concern regarding cystic duct obstruction. 3. Moderate stool in the rectum. 4. Compression fractures of L2 and L3 vertebral bodies of unknown chronicity. Todd Young MD Pelvis X-Ray 02/03/18 1348 Signed Impressions: Service Date/Time: Saturday, February 03, 2018 15:01 - CONCLUSION: 1. No acute fracture or dislocation. Todd Young MD Head CT 02/03/18 1348 Signed Impressions: Service Date/Time: Saturday, February 03, 2018 14:27 - CONCLUSION: 1. Senescent changes without acute intracranial abnormality. Todd Young MD Objective Remarks GENERAL: This is a well-nourished, well-developed patient, in no apparent distress. CARDIOVASCULAR: Regular rate and regular rhythm without murmurs, gallops, or rubs. RESPIRATORY: Clear to auscultation. Breath sounds equal bilaterally. No wheezes , rales, or rhonchi. GASTROINTESTINAL: Abdomen soft, non-tender, nondistended. Normal, active bowel sounds MUSCULOSKELETAL: right knee is swollen and tender. NEURO: mildly lethargic but easily arousable. Procedures central line placement/ femoral artery catheter placement. Medications and IVs Inpatient Medications Acetaminophen (Tylenol) 650 mg Q6H PRN PO FEVER >100F; Start 02/03/18 at 19:00 Acetaminophen/ Hydrocodone Bitart ([place] 5-325 Mg) 2 tab Q4H PRN PO PAIN 8-10 ; Start 02/07/18 at 11:15 Albuterol Sulfate (Albuterol Neb) 2.5 mg Q2HR NEB PRN INH SOB/WHEEZING; Start 02/03/18 at 19:00 Albuterol/ Ipratropium (Duoneb Neb) 1 ampule Q6HR NEB INH Last administered on 02/07/18at 20:00; Start 02/03/18 at 22:00; Stop 02/07/18 at 21:59; Status DC Bisacodyl (Dulcolax Supp) 10 mg DAILY PRN RECTAL SEVERE CONSITIPATION; Start at 19:00 Chlorhexidine Gluconate (Chlorhexidine 2% Cloth) 3 pack UNSCH PRN TOP HYGIENIC CARE; Start 02/03/18 at 19:00 Dextrose (D50w (Vial) Inj) 50 ml UNSCH PRN IV PUSH HYPOGLYCEMIA-SEE COMMENTS; Start 02/04/18 at 11:30 Diatrizoate Meglum/ Diatrizoate Sod ( Gastroview Liq) 18 ml ONCE ONCE PO Last administered on 02/04/18at 13:16; Start 02/04/18 at 12:00; Stop 02/04/18 at 12:01; Status DC Digoxin (Lanoxin Inj) 0.25 mg DAILY IV PUSH Last administered on 02/05/18at 08: 26; Start 02/04/18 at 20:45; Stop 02/05/18 at 11:18; Status DC Diltiazem HCl (Cardizem) 60 mg QID PO Last administered on 02/11/18at 08:23; Start 02/05/18 at 13:00 Famotidine (Pepcid Inj) 20 mg Q12HR IV PUSH Last administered on 02/03/18at 22: 25; Start 02/03/18 at 21:00; Stop 02/04/18 at 08:40; Status DC Famotidine (Pepcid) 20 mg HS PO Last administered on 02/10/18at 21:28; Start at 21:00 Glucagon (Glucagon Inj) 1 mg UNSCH PRN OTHER HYPOGLYCEMIA-SEE COMMENTS; Start 02/04/18 at 11:30 Glycerin (Glycerin Adult Supp) 2 gm ONCE ONCE RECTAL Last administered on 02/05at 12:10; Start 02/05/18 at 06:30; Stop 02/05/18 at 06:31; Status DC Heparin Sodium (Porcine) (Heparin Inj) 5,000 units Q12H SQ Last administered on 02/04/18 21:25; Start 02/03/18 at 20:00; Stop 02/05/18 at 06:28; Status DC Insulin Aspart (NovoLOG SUPPLEMENTAL SCALE) 1 ACHS SLIDING SCALE SQ Last administered on 02/08/18at 22:20; Start 02/04/18 at 12:00 Labetalol HCl (Trandate Inj) 10 mg Q1HR PRN IV PUSH SBP>160, DBP>90, HR>65; Start 02/04/18 at 11:30 Lactulose (Lactulose Liq) 30 ml DAILY PRN PO SEVERE CONSITIPATION; Start at 19:00 Levofloxacin (Levaquin) 500 mg DAILY PO Last administered on 02/11/18at 08:23; Start 02/10/18 at 09:00; Stop 02/17/18 at 08:59 Loperamide HCl (Imodium) 2 mg Q6H PRN PO DIARRHEA Last administered on at 21:28; Start 02/10/18 at 09:30 Magnesium Hydroxide (Milk Of Magnesia Liq) 30 ml Q12H PRN PO Mild constipation ; Start 02/03/18 at 19:00 Metoprolol Tartrate (Lopressor Inj) 5 mg ONCE ONCE IV PUSH Last administered on 02/04/18at 19:20; Start 02/04/18 at 19:15; Stop 02/04/18 at 19:16; Status DC Miscellaneous Information ([facility] Nursing Information) 1 Q361D XX ; Start at 19:00 Morphine Sulfate (Morphine Inj) 2 mg Q4H PRN IV PUSH BREAKTHROUGH PAIN; Start 02/07/18 at 11:15 Nitroglycerin (Nitroglycerin 2% Oint) 2 inch Q6HR PRN TOPICAL SBP>160, DBP>90; Start 02/04/18 at 11:30 Nystatin (Mycostatin Liq) 5 ml QID SWISH-SWAL Last administered on 02/11/18at 08:23; Start 02/10/18 at 09:30 Padimate O (Chapstick) 1 applic UNSCH PRN TOPICAL dry lips Last administered on 02/05/18at 12:10; Start 02/05/18 at 07:00 Pharmacy Profile Note 0 ml @ 0 mls/hr UNSCH OTHER ; Start 02/03/18 at 18:45; Stop 02/05/18 at 23:28; Status DC Phenylephrine HCl 160 mg/Dextrose 500 ml @ 7.5 mls/hr TITRATE PRN IV Blood pressure management Last administered on 02/04/18at 14:30; Start 02/04/18 at 14: 15; Stop 02/07/18 at 11:22; Status DC Piperacillin Sod/ Tazobactam Sod 50 ml @ 100 mls/hr Q6H IV Last administered on 02/09/18at 16:14; Start 02/03/18 at 23:00; Stop 02/09/18 at 17:19; Status DC Potassium Phosphate 30 mmol/ Sodium Chloride 260 ml @ 43.333 mls/ hr ONCE ONCE IV Last administered on 02/05/18at 16:50; Start 02/05/18 at 15:00; Stop at 20:59; Status DC Potassium Chloride (KCl) 40 meq ONCE ONCE PO Last administered on 02/08/18at 17 :43; Start 02/08/18 at 19:00; Stop 02/08/18 at 19:01; Status DC Pravastatin Sodium (Pravachol) 20 mg DAILY PO Last administered on 02/04/18at 09 :08; Start 02/04/18 at 09:00; Status Future Hold Senna/Docusate Sodium (Jeanette-Colace) 1 tab BID PO Last administered on at 08:23; Start 02/03/18 at 21:00 Sennosides (Senokot) 17.2 mg Q12H PRN PO Moderate constipation; Start 02/03/18 at 19:00 Sodium Chloride 1,000 ml @ 84 mls/hr [id number] IV Last administered on at 08:24; Start 02/06/18 at 09:00 Sodium Chloride (NS Flush) UNSCH PRN IV FLUSH SEE PROTOCOL; Start 02/04/18 at 15:00 Sodium Chloride 38.5 meq/Sterile Water 1,009.625 ml @ 100 mls/hr Q10H6M IV Last administered on 02/05/18at 10:24; Start 02/04/18 at 10:00; Stop 02/05/18 at 13:06; Status DC Terbutaline Sulfate (Brethine Inj) 1 mg UNSCH PRN SQ For Extravasation; Start 02/04/18 at 14:15 Vancomycin HCl 1250 mg/Sodium Chloride 262.5 ml @ 250 mls/hr ONCE ONCE IV Last administered on 02/03/18at 22:26; Start 02/03/18 at 21:00; Stop 02/03/18 at 22:02; Status DC Vancomycin HCl 1500 mg/Sodium Chloride 515 ml @ 257.5 mls/ hr Q24H IV Last administered on 02/05/18at 16:51; Start 02/05/18 at 15:00; Stop 02/05/18 at 23:28 ; Status DC Date of Insertion: February 04, 2018 Line: Central Venous Catheter Side: Right Location: Internal, Jugular A/P Problem List: (1) UTI (urinary tract infection) ICD Code: N39.0 - Urinary tract infection, site not specified Status: Acute Assessment and Plan Acute toxic metabolic encephalopathy- improving slowly. Hard of hearing Presbycusis Underlying dementia disorder? CT brain 02/03 shows diffuse moderate atrophy but no acute changes. MRI brain with no acute abnormality. Ammonia level was less than 10 continue to monitor. Essential HTN at baseline Hyperlipidemia. A. fib with RVR Hold losartan unknown dosage due to acute kidney injury Hold amlodipine 5 mg daily as BP was low Holding pravastatin due to muscle breakdown Scheduled oral diltiazem 60 mg p.o. 4 times daily Routine limited 2D echocardiogram with EF 55% TSH 0.87 Appreciate cardiology consultation recommendation Hypoalbuminemia Elevated transaminases Retroperitoneal hematoma/anterior psoas muscle Speech therapy evaluate and treat Famotidine for GI prophylaxis Docusate sodium/senna 1 tablet twice daily for bowel regimen Hemoglobin fairly stable- Hyperosmolar hypernatremia Acute kidney injury rhabdomyolysis- improving. hypokalemia-replaced. continue IV fluid. monitor CPK levels. Left kidney is not identified. No hydronephrosis on right side on renal ultrasound. Negative hydronephrosis on CT CT abdomen/pelvis revealed bilateral. Calyces cyst. Retroperitoneal hematoma. Severe sepsis Multiple pressure wounds, ?cellulitis abdomen. UTI -E. coli Blood cultures coag negative staph question contaminant diarrhea oral thrush was on Zosyn- now on Levaquin. -Blood cultures no growth to date with urine gram-negative isabella on 02/03. Wound with proteus. stool negative for c-diff- check the stool for C/S- continue Imodium- will consider GI evaluation if no improvement. start on Nystatin S/S. ID follow-up appreciated. Normocytic anemia Thrombocytopenia Monitor CBC. No indication for transfusion of blood products at this time Stress hyperglycemia TSH 0.87 Sliding scale insulin with Accu-Cheks to maintain euglycemia with Novulog Grade 2-3 pressure injury to right hip Grade 2 pressure injury to right breast Elevated BMI Osteoporosis/osteoarthritis Left medial foot and knee Deep Tissue Injury: - [place] Cavilon skin barrier film BID and leave open to air & free from pressure. Right hip Deep Tissue Injury Q3D and PRN for saturation or dislodgement: - Cleanse with wound cleanser and pat dry with gauze. - Apply MAXORB EXTRA AG over wound bed. - [place] periwound with Cavilon skin barrier film and allow to dry. - Cover and secure Maxorb Extra Ag with bordered gauze dressing (primapore). PT evaluate and treat Weight loss encouraged PROPH: SCD/holding pharmacological prophylaxis secondary to retroperitoneal hematoma. Famotidine for stress ulcer prophylaxis. Discharge Planning dc planning to SNF when diarrhea improves. will consider GI evaluation if no improvement in diarrhea within the next 24 hrs. Michael Johnson MD February 11, 2018 09:06
[2018-02-11 11:46] LABS: BICARBONATE 25.9 MEQ/L (21.0-32.0); CALCIUM 7.7 MG/DL (8.5-10.1); CREATININE 0.63 MG/DL (0.50-1.00)
[2018-02-11] MEDS: LOPERAMIDE HCL 2 MG CAP PO PRN (11:57)
[2018-02-11 12:06] VITALS: BP 124/57; PULSE 85; RESP 16; TEMP 98.3
[2018-02-11] MEDS ORDERED: POTASSIUM CHLORIDE 10 MEQ CONTROLLED RELEASE TAB PO ONE ×2 (12:45→16:00)
[2018-02-11 17:20] VITALS: O2SAT 99
[2018-02-11 20:00] VITALS: BP 132/60; PULSE 85; PULSE 91; RESP 16; TEMP 98.3; O2SAT 95
[2018-02-11] MEDS: FAMOTIDINE 20 MG TAB PO SCH (20:31)
[2018-02-12] VITALS: BP 116/59; PULSE 86; PULSE 92; RESP 16; TEMP 98.7; O2SAT 98
[2018-02-12 04:00] VITALS: BP 118/59; PULSE 83; PULSE 91; RESP 16; TEMP 98.4; O2SAT 98
[2018-02-12] MEDS: CHLORHEXIDINE GLUCONATE 2 % 1 PACK (2 CLOTHS) TOP SCH (04:00)
[2018-02-12] MEDS: INSULIN ASPART SUPPLEMENTAL SCALE SQ SCH (08:00)
[2018-02-12 08:06] VITALS: BP 112/72; PULSE 100; RESP 19; TEMP 97.7; O2SAT 99
[2018-02-12] MEDS: SODIUM CHLOR 0.45% 1000 ML INJ 1,000 ML IV SCH (08:18)
[2018-02-12] MEDS: DILTIAZEM HCL 60 MG TAB PO SCH (08:18)
[2018-02-12] MEDS: LEVOFLOXACIN 500 MG TAB PO SCH (08:19)
[2018-02-12] MEDS: DOCUSATE SODIUM 50 MG/SENNA 8.6 MG TAB PO SCH (08:19)
[2018-02-12] MEDS: NYSTATIN SUSP 500,000 U/5 ML CUP SWISH-SWAL SCH (08:19)
[2018-02-12] MEDS: SODIUM CHLORIDE 0.9% FLUSH 10 ML FLUSH IV FLUSH SCH ×2 (08:19→08:20)
[2018-02-12 09:15] VITALS: O2SAT 99
--- NOTE | 2018-02-12 09:31 | HHI.PR ---
Subjective Remarks in no acute distress. resting comfortably. no fever. diarrhea has resolved. Objective Vitals Vital Signs Date Time Temp Pulse Resp B/P (MAP) Pulse Ox O2 Delivery O2 Flow Rate FiO2 02/12/18 09:15 99 02/12/18 04:00 91 02/12/18 04:00 98.4 83 16 118/59 (78) 98 02/12/18 00:00 92 02/12/18 00:00 Room Air 02/12/18 00:00 Room Air 02/12/18 00:00 98.7 86 16 116/59 (78) 98 02/11/18 20:00 98.3 85 16 132/60 (84) 95 02/11/18 20:00 91 02/11/18 20:00 Room Air 02/11/18 17:20 99 02/11/18 13:42 Room Air 02/11/18 12:06 98.3 85 16 124/57 (79) I/O 02/11/18 02/11/18 02/11/18 02/12/18 02/12/18 02/12/18 07:00 15:00 23:00 07:00 15:00 23:00 Intake Total 480 ml 1000 ml 480 ml Output Total 1000 ml 900 ml Balance 480 ml -1000 ml 1000 ml -420 ml Intake Oral 480 ml 480 ml IV Total 1000 ml Output Urine Total 1000 ml 900 ml # Voids 2 # Bowel Movements 2 Result Diagram: 02/08/18 0637 02/11/18 1110 Imaging Last Impressions Brain MRI 02/06/18 0000 Signed Impressions: CONCLUSION: Atrophy and chronic appearing ischemic white matter changes. No acute findings. Chest X-Ray 02/04/18 1500 Signed Impressions: Service Date/Time: Sunday, February 04, 2018 15:08 - CONCLUSION: 1. Right IJ central line in good position without pneumothorax. Todd Young MD Renal Ultrasound 02/04/18 0000 Signed Impressions: Service Date/Time: Sunday, February 04, 2018 08:09 - CONCLUSION: 1. No evidence of hydronephrosis the right kidney. 2. Left kidney is not visualized. Slim Pizano MD Chest CT 02/04/18 0000 Signed Impressions: Service Date/Time: Sunday, February 04, 2018 20:04 - CONCLUSION: 1. Minimal left lung base atelectasis. 2. Trace anterior pericardial effusion. 3. Prominent main pulmonary artery consistent with some degree of pulmonary artery hypertension. Todd Young MD Abdomen/Pelvis CT 02/04/18 0000 Signed Impressions: Service Date/Time: Sunday, February 04, 2018 20:04 - CONCLUSION: 1. Retroperitoneal high density stranding extending from the inferior perinephric region along the anterior psoas consistent with retroperitoneal hematoma. Uncertain if this originates from or abuts the kidney although suspect the latter. 2. Markedly distended gallbladder otherwise appears unremarkable by CT. Consider HIDA scan if there is significant clinical concern regarding cystic duct obstruction. 3. Moderate stool in the rectum. 4. Compression fractures of L2 and L3 vertebral bodies of unknown chronicity. Todd Young MD Pelvis X-Ray 02/03/18 1348 Signed Impressions: Service Date/Time: Saturday, February 03, 2018 15:01 - CONCLUSION: 1. No acute fracture or dislocation. Todd Young MD Head CT 02/03/18 1348 Signed Impressions: Service Date/Time: Saturday, February 03, 2018 14:27 - CONCLUSION: 1. Senescent changes without acute intracranial abnormality. Todd Young MD Objective Remarks GENERAL: This is a well-nourished, well-developed patient, in no apparent distress. CARDIOVASCULAR: Regular rate and regular rhythm without murmurs, gallops, or rubs. RESPIRATORY: Clear to auscultation. Breath sounds equal bilaterally. No wheezes , rales, or rhonchi. GASTROINTESTINAL: Abdomen soft, non-tender, nondistended. Normal, active bowel sounds MUSCULOSKELETAL: right knee is swollen and tender. NEURO: mildly lethargic but easily arousable. Procedures central line placement/ femoral artery catheter placement. Medications and IVs Inpatient Medications Acetaminophen (Tylenol) 650 mg Q6H PRN PO FEVER >100F; Start 02/03/18 at 19:00 Acetaminophen/ Hydrocodone Bitart ([place] 5-325 Mg) 2 tab Q4H PRN PO PAIN 8-10 ; Start 02/07/18 at 11:15 Albuterol Sulfate (Albuterol Neb) 2.5 mg Q2HR NEB PRN INH SOB/WHEEZING; Start 02/03/18 at 19:00 Albuterol/ Ipratropium (Duoneb Neb) 1 ampule Q6HR NEB INH Last administered on 02/07/18at 20:00; Start 02/03/18 at 22:00; Stop 02/07/18 at 21:59; Status DC Bisacodyl (Dulcolax Supp) 10 mg DAILY PRN RECTAL SEVERE CONSITIPATION; Start at 19:00 Chlorhexidine Gluconate (Chlorhexidine 2% Cloth) 3 pack UNSCH PRN TOP HYGIENIC CARE; Start 02/03/18 at 19:00 Dextrose (D50w (Vial) Inj) 50 ml UNSCH PRN IV PUSH HYPOGLYCEMIA-SEE COMMENTS; Start 02/04/18 at 11:30 Diatrizoate Meglum/ Diatrizoate Sod ( Gastroview Liq) 18 ml ONCE ONCE PO Last administered on 02/04/18at 13:16; Start 02/04/18 at 12:00; Stop 02/04/18 at 12:01; Status DC Digoxin (Lanoxin Inj) 0.25 mg DAILY IV PUSH Last administered on 02/05/18at 08: 26; Start 02/04/18 at 20:45; Stop 02/05/18 at 11:18; Status DC Diltiazem HCl (Cardizem) 60 mg QID PO Last administered on 02/12/18at 08:18; Start 02/05/18 at 13:00 Famotidine (Pepcid Inj) 20 mg Q12HR IV PUSH Last administered on 02/03/18at 22: 25; Start 02/03/18 at 21:00; Stop 02/04/18 at 08:40; Status DC Famotidine (Pepcid) 20 mg HS PO Last administered on 02/11/18at 20:31; Start at 21:00 Glucagon (Glucagon Inj) 1 mg UNSCH PRN OTHER HYPOGLYCEMIA-SEE COMMENTS; Start 02/04/18 at 11:30 Glycerin (Glycerin Adult Supp) 2 gm ONCE ONCE RECTAL Last administered on 02/05at 12:10; Start 02/05/18 at 06:30; Stop 02/05/18 at 06:31; Status DC Heparin Sodium (Porcine) (Heparin Inj) 5,000 units Q12H SQ Last administered on 02/04/18at 21:25; Start 02/03/18 at 20:00; Stop 02/05/18 at 06:28; Status DC Insulin Aspart (NovoLOG SUPPLEMENTAL SCALE) 1 ACHS SLIDING SCALE SQ Last administered on 02/11/18at 20:31; Start 02/04/18 at 12:00 Labetalol HCl (Trandate Inj) 10 mg Q1HR PRN IV PUSH SBP>160, DBP>90, HR>65; Start 02/04/18 at 11:30 Lactulose (Lactulose Liq) 30 ml DAILY PRN PO SEVERE CONSITIPATION; Start at 19:00 Levofloxacin (Levaquin) 500 mg DAILY PO Last administered on 02/12/18 08:19; Start 02/10/18 at 09:00; Stop 02/17/18 at 08:59 Loperamide HCl (Imodium) 2 mg Q6H PRN PO DIARRHEA Last administered on at 11:57; Start 02/10/18 at 09:30 Magnesium Hydroxide (Milk Of Magnesia Liq) 30 ml Q12H PRN PO Mild constipation ; Start 02/03/18 at 19:00 Metoprolol Tartrate (Lopressor Inj) 5 mg ONCE ONCE IV PUSH Last administered on 02/04/18at 19:20; Start 02/04/18 at 19:15; Stop 02/04/18 at 19:16; Status DC Miscellaneous Information ([facility] [place] Nursing Information) 1 Q361D XX ; Start at 19:00 Morphine Sulfate (Morphine Inj) 2 mg Q4H PRN IV PUSH BREAKTHROUGH PAIN; Start 02/07/18 at 11:15 Nitroglycerin (Nitroglycerin 2% Oint) 2 inch Q6HR PRN TOPICAL SBP>160, DBP>90; Start 02/04/18 at 11:30 Nystatin (Mycostatin Liq) 5 ml QID SWISH-SWAL Last administered on 02/12/18at 08:19; Start 02/10/18 at 09:30 Padimate O (Chapstick) 1 applic UNSCH PRN TOPICAL dry lips Last administered on 02/05/18at 12:10; Start 02/05/18 at 07:00 Pharmacy Profile Note 0 ml @ 0 mls/hr UNSCH OTHER ; Start 02/03/18 at 18:45; Stop 02/05/18 at 23:28; Status DC Phenylephrine HCl 160 mg/Dextrose 500 ml @ 7.5 mls/hr TITRATE PRN IV Blood pressure management Last administered on 02/04/18at 14:30; Start 02/04/18 at 14: 15; Stop 02/07/18 at 11:22; Status DC Piperacillin Sod/ Tazobactam Sod 50 ml @ 100 mls/hr Q6H IV Last administered on 02/09/18at 16:14; Start 02/03/18 at 23:00; Stop 02/09/18 at 17:19; Status DC Potassium Phosphate 30 mmol/ Sodium Chloride 260 ml @ 43.333 mls/ hr ONCE ONCE IV Last administered on 02/05/18at 16:50; Start 02/05/18 at 15:00; Stop at 20:59; Status DC Potassium Chloride (KCl) 30 meq ONCE ONCE PO Last administered on 02/11/18at 16 :29; Start 02/11/18 at 16:00; Stop 02/11/18 at 16:01; Status DC Pravastatin Sodium (Pravachol) 20 mg DAILY PO Last administered on 02/04/18at 09 :08; Start 02/04/18 at 09:00; Status Future Hold Senna/Docusate Sodium (Jeanette-Colace) 1 tab BID PO Last administered on at 08:19; Start 02/03/18 at 21:00 Sennosides (Senokot) 17.2 mg Q12H PRN PO Moderate constipation; Start 02/03/18 at 19:00 Sodium Chloride 1,000 ml @ 84 mls/hr [id number] IV Last administered on at 08:18; Start 02/06/18 at 09:00 Sodium Chloride (NS Flush) UNSCH PRN IV FLUSH SEE PROTOCOL; Start 02/04/18 at 15:00 Sodium Chloride 38.5 meq/Sterile Water 1,009.625 ml @ 100 mls/hr Q10H6M IV Last administered on 02/05/18at 10:24; Start 02/04/18 at 10:00; Stop 02/05/18 at 13:06; Status DC Terbutaline Sulfate (Brethine Inj) 1 mg UNSCH PRN SQ For Extravasation; Start 02/04/18 at 14:15 Vancomycin HCl 1250 mg/Sodium Chloride 262.5 ml @ 250 mls/hr ONCE ONCE IV Last administered on 02/03/18at 22:26; Start 02/03/18 at 21:00; Stop 02/03/18 at 22:02; Status DC Vancomycin HCl 1500 mg/Sodium Chloride 515 ml @ 257.5 mls/ hr Q24H IV Last administered on 02/05/18at 16:51; Start 02/05/18 at 15:00; Stop 02/05/18 at 23:28 ; Status DC Date of Insertion: February 04, 2018 Line: Central Venous Catheter Side: Right Location: Internal, Jugular A/P Assessment and Plan Acute toxic metabolic encephalopathy- improving slowly. Hard of hearing Presbycusis Underlying dementia disorder? CT brain 02/03 shows diffuse moderate atrophy but no acute changes. MRI brain with no acute abnormality. Ammonia level was less than 10 continue to monitor. Essential HTN at baseline Hyperlipidemia. A. fib with RVR Hold losartan unknown dosage due to acute kidney injury Hold amlodipine 5 mg daily as BP was low Holding pravastatin due to muscle breakdown Scheduled oral diltiazem 60 mg p.o. 4 times daily Routine limited 2D echocardiogram with EF 55% TSH 0.87 Appreciate cardiology consultation recommendation Hypoalbuminemia Elevated transaminases Retroperitoneal hematoma/anterior psoas muscle Speech therapy evaluate and treat Famotidine for GI prophylaxis Docusate sodium/senna 1 tablet twice daily for bowel regimen Hemoglobin fairly stable- d/w the vascular surgery mailing section clerk and no interventions needed at this time. Hyperosmolar hypernatremia Acute kidney injury rhabdomyolysis- improving. hypokalemia-replaced. continue IV fluid. monitor CPK levels. Left kidney is not identified. No hydronephrosis on right side on renal ultrasound. Negative hydronephrosis on CT CT abdomen/pelvis revealed bilateral. Calyces cyst. Retroperitoneal hematoma. Severe sepsis Multiple pressure wounds, ?cellulitis abdomen. UTI -E. coli Blood cultures coag negative staph question contaminant diarrhea oral thrush was on Zosyn- now on Levaquin. -Blood cultures no growth to date with urine gram-negative isabella on 02/03. Wound with proteus. stool negative for c-diff- check the stool for C/S- continue Imodium- will consider GI evaluation if no improvement. start on Nystatin S/S. ID follow-up appreciated. Normocytic anemia Thrombocytopenia Monitor CBC. No indication for transfusion of blood products at this time Stress hyperglycemia TSH 0.87 Sliding scale insulin with Accu-Cheks to maintain euglycemia with Novulog Grade 2-3 pressure injury to right hip Grade 2 pressure injury to right breast Elevated BMI Osteoporosis/osteoarthritis Left medial foot and knee Deep Tissue Injury: - [place] Cavilon skin barrier film BID and leave open to air & free from pressure. Right hip Deep Tissue Injury Q3D and PRN for saturation or dislodgement: - Cleanse with wound cleanser and pat dry with gauze. - Apply MAXORB EXTRA AG over wound bed. - [place] periwound with Cav[place] skin barrier film and allow to dry. - Cover and secure Maxorb Extra Ag with bordered gauze dressing (primapore). PT evaluate and treat Weight loss encouraged PROPH: SCD/holding pharmacological prophylaxis secondary to retroperitoneal hematoma. Famotidine for stress ulcer prophylaxis. Discharge Planning dc planning to SNF today. see med list. d/w the patient and RN. time spent 35 min. Michael Johnson MD February 12, 2018 09:31
[2018-02-12] MEDS ORDERED: LEVA500T33 PO (09:34)
[2018-02-12] MEDS ORDERED: Nystatin Liq SWISH-SWAL (09:58)
== END 2018-02-12 13:02 | DRG 871 ==
LOC: NEPE 13:38 → NEDA 16:23 → N03A 20:00 → N04B 02-06 21:00
PROVIDERS: ADMIT Internal Medicine; ATTEND Internal Medicine
PROC: 02HV33Z Insertion of Infusion Device into Superior Vena Cava, Percutaneous Approach (ICD-10-PCS; principal; 2018-02-04)
PROC: 04HY32Z Insertion of Monitoring Device into Lower Artery, Percutaneous Approach (ICD-10-PCS; 2018-02-04)
PROC: 4A133B1 Monitoring of Arterial Pressure, Peripheral, Percutaneous Approach (ICD-10-PCS; 2018-02-04)
PROC: 4A133J1 Monitoring of Arterial Pulse, Peripheral, Percutaneous Approach (ICD-10-PCS; 2018-02-04)
DX: A41.9 Sepsis, unspecified organism (principal); G92 Toxic encephalopathy; N17.9 Acute kidney failure, unspecified; K66.1 Hemoperitoneum; E87.0 Hyperosmolality and hypernatremia; E87.2 Acidosis; B37.0 Candidal stomatitis; E86.0 Dehydration; I48.91 Unspecified atrial fibrillation; N39.0 Urinary tract infection, site not specified; L03.311 Cellulitis of abdominal wall; S36.892A Contusion of other intra-abdominal organs, initial encounter; D69.6 Thrombocytopenia, unspecified; I10 Essential (primary) hypertension; J44.9 Chronic obstructive pulmonary disease, unspecified; M19.90 Unspecified osteoarthritis, unspecified site; R25.1 Tremor, unspecified; L89.892 Pressure ulcer of other site, stage 2; Z98.84 Bariatric surgery status; I44.7 Left bundle-branch block, unspecified; R65.20 Severe sepsis without septic shock; E78.5 Hyperlipidemia, unspecified; H54.7 Unspecified visual loss; Z82.49 Family history of ischemic heart disease and other diseases of the circulatory system; Z87.891 Personal history of nicotine dependence; Z90.710 Acquired absence of both cervix and uterus; H91.10 Presbycusis, unspecified ear; H52.4 Presbyopia; E66.9 Obesity, unspecified; Z68.38 Body mass index [BMI] 38.0-38.9, adult; R73.9 Hyperglycemia, unspecified; B96.89 Other specified bacterial agents as the cause of diseases classified elsewhere; M81.0 Age-related osteoporosis without current pathological fracture; K21.9 Gastro-esophageal reflux disease without esophagitis; I25.10 Atherosclerotic heart disease of native coronary artery without angina pectoris; E88.09 Other disorders of plasma-protein metabolism, not elsewhere classified; R74.0 Nonspecific elevation of levels of transaminase and lactic acid dehydrogenase [LDH]; E87.6 Hypokalemia; X58.XXXA Exposure to other specified factors, initial encounter; Y92.009 Unspecified place in unspecified non-institutional (private) residence as the place of occurrence of the external cause; B96.20 Unspecified Escherichia coli [E. coli] as the cause of diseases classified elsewhere; R19.7 Diarrhea, unspecified; D64.9 Anemia, unspecified; S70.10XA Contusion of unspecified thigh, initial encounter
CPT/HCPCS: 36600; 70450; 70551; 71045; 71250; 72170; 74176; 76775; 80048; 80053; 80061; 80162; 80202; 81001; 82140; 82150; 82533; 82550; 82552; 82570; 82805; 82948; 83605; 83615; 83690; 83735; 83930; 83935; 84100; 84295; 84300; 84443; 84484; 85014; 85018; 85025; 85384; 85610; 85730; 87040; 87070; 87077; 87086; 87186; 87205; 87493; 87506; 87641; 93005; 93308; 94150; 94640; 94664; 96360; J1160; J1644; J1815; J2270; J2370; J2543; J3370; J3480; J7030; J7040; J7050; J7060; J7070; P9612; Q9963

== ENCOUNTER 2018-04-11 15:10 | Inpatient (IN) ==
[2018-04-11] MEDS ORDERED: Sod Chloride 0.9% Inj 1,000 ML IV.SIG ONE ×3 (15:12→16:52)
[2018-04-11] MEDS ORDERED: Morphine Sulfate Inj 2 MG/ML Vial IV.PUSH ONE (15:12)
--- NOTE | 2018-04-11 15:45 | ED ---
HPI General Chief complaint: Nausea/Vomiting/Diarrhea Stated complaint: Vomiting Time Seen by Provider: 04/11/18 15:11 Source: patient, EMS and old records reviewed Mode of arrival: EMS Limitations: altered mental status (? dementia--but is able to answer simple questions) History of Present Illness MD complaint: nausea and vomiting Onset (ago): day(s) (today) Description of Vomiting: foul-smelling, feculent and continuous Description of Diarrhea: none Associated Abdominal Pain: Yes Context: other (previous abdominal operation) Associated symptoms: other (no BM in 3 days) Related Data Home Medications Medication Instructions Recorded Confirmed diltiazem HCl [Cartia XT] 240 mg PO DAILY 04/11/18 04/11/18 potassium 10 meq PO DAILY 04/11/18 04/11/18 Allergies Allergy/AdvReac Type Severity Reaction Status Date / Time No Known Allergies Allergy Unknown Uncoded 02/03/18 18:45 Review of Systems Except as stated in HPI: all other systems reviewed are negative [facility] Medical History Medical History Atrial fibrillation (Acute) Encephalopathy due to infection (Acute) Hyperlipemia (Acute) Hypertension (Acute) Sepsis (Acute) Surgical History Surgical History H/O abdominal surgery (Acute) Social History Social History Substance History: No History of Abuse Smoking Status: Unknown if ever smoked How Often Do You Have a Drink Containing Alcohol: Never Recent Travel in [facility] within the Last 8 Weeks: No Recent Out of Country Travel within the Last 8 Weeks: No Exam Const General: acute distress moderate and ill appearing Nutritional Appearance: obese HENMT Head: normal to inspection, normocephalic and atraumatic Mouth: malodorous breath Eyes General: appearance normal, both eyes and all related structures Conjunctivae: conjunctivae normal Sclera: sclerae normal Pupils: PERRL EOM: EOM intact bilaterally Neck Neck: normal visual inspection and full ROM Chest Chest: normal inspection of the chest Resp Effort & Inspection: normal respiratory effort Auscultation: clear to auscultation bilaterally Cardio Rate: tachycardic Rhythm: regular rhythm GI Inspection: distended and obesity Palpation: guarding and tender External Female Exam: external appearance normal Skin General: mottling Neuro General: alert, awake, moves all extremities and CN's II-XI intact bilaterally Extrem General: normal to inspection and full ROM Psych Appearance: grossly normal Mental Status: mental status grossly normal Mood: congruent mood Course Consultations Consultation #1: Dr Callaway Time: 18:15 Initial Documented Vital Signs Temperature 98.0 F 04/11/18 15:13 Pulse Rate 125 H 04/11/18 15:13 Respiratory Rate 20 04/11/18 15:13 Blood Pressure 117/79 04/11/18 15:13 Pulse Oximetry 96 04/11/18 15:13 Last Documented Vital Signs Temperature 98.0 F 04/11/18 15:13 Pulse Rate 110 H 04/11/18 17:47 Respiratory Rate 20 04/11/18 17:47 Blood Pressure 109/62 04/11/18 17:47 Pulse Oximetry 97 04/11/18 17:47 Medical Decision Making MDM Narrative Medical decision making narrative: This patient Zentz with fecal emesis she has a bowel obstruction until proven otherwise. An NG tube was placed and is draining copious fecal material. This patient is tachycardic and has mottling of the skin. She is being fluid resuscitated. Septic workup is in process. CRITICAL CARE Time to perform other separately billable procedures was not included in the critical care time. My time did not include minutes spent treating any other patients simultaneously or on activities that did not directly contribute to the patient's treatment. Critical care time 45 The services I provided to this patient were to treat and/or prevent clinically significant deterioration due to bowel obstruction with fecal emesis and sepsis I provided critical care services requiring my management, as noted below: Chart data review, documentation time, medication orders and management, vital sign assessments/reviewing monitor data, ordering and reviewing lab tests, ordering and interpreting/reviewing x-rays and diagnostic studies, care of the patient and discussion of the patient with the admitting physicians Differential Diagnosis Differential Diagnosis: Differential diagnosis includes but is not limited to viral gastritis, food poisoning, pancreatitis, pneumonia, hepatitis, acute coronary syndrome, Medical Records Medical records reviewed: Yes I reviewed the patient's medical records. The patient has a history of sepsis with encephalopathy in January of this year. She also had rhabdomyolysis and acute kidney injury. Other underlying medical conditions include hypertension, hyperlipidemia, atrial fibrillation Lab Data Lab results reviewed: Yes I reviewed the patient's lab results. Lab results narrative: I am going to repeat her potassium before treating it. Her creatinine is normal. The specimen is likely hemolyzed. She has a leukocytosis and lactic acidosis. She also has a urinary tract infection. She has already been given Zosyn. Repeat BMP shows a potassium of 6.4. She is also developing acidosis. I have ordered medications for hyperkalemia. I have also consulted Dr. Lovelace for admission Result diagrams: 04/11/18 15:35 04/11/18 17:10 Lab Results 04/11/18 04/11/18 04/11/18 Range/Units 15:35 15:35 15:35 WBC 19.9 H (4.0-11.0) th/mm3 RBC 5.18 (4.00-5.30) mil/mm3 Hgb 14.4 (11.6-15.3) gm/dL Hct 45.2 (35.0-46.0) % MCV 87.4 (80.0-100.0) fL MCH 27.8 (27.0-34.0) pg MCHC 31.8 L (32.0-36.0) % RDW 18.4 H (11.6-17.2) % Plt Count 319 (150-450) th/mm3 MPV 8.4 (7.0-11.0) fL Neut % (Auto) 86.7 H (16.0-70.0) % Lymph % (Auto) 6.9 L (9.0-44.0) % [place] % (Auto) 6.3 (0.0-8.0) % Eos % (Auto) 0.0 (0.0-4.0) % Baso % (Auto) 0.1 (0.0-2.0) % Neut # (Auto) 17.2 H (1.8-7.7) th/mm3 Lymph # (Auto) 1.4 (1.0-4.8) th/mm3 [place] # (Auto) 1.3 H (0.0-0.9) th/mm3 Eos # (Auto) 0.0 (0.0-0.4) th/mm3 Baso # (Auto) 0.0 (0.0-0.2) th/mm3 WBC Differential . Differential Comment Auto diff final Sodium 134 L (136-145) meq/L Potassium 5.9 H (3.5-5.1) meq/L Chloride 101 (98-107) meq/L Carbon Dioxide 22.8 (21.0-32.0) meq/L Anion Gap 10 (5-15) meq/L BUN 36 H (7-18) mg/dL Creatinine 0.95 (0.50-1.00) mg/dL Estimated GFR 57 L (>89) mL/min Random Glucose 143 H (74-106) mg/dL Lactic Acid 2.3 H (0.4-2.0) mmol/L Calcium 8.6 (8.5-10.1) mg/dL Total Bilirubin 0.7 (0.2-1.0) mg/dL AST 30 (15-37) U/L ALT 22 (10-53) U/L Alkaline Phosphatase 91 (45-117) U/L Total Protein 6.5 (6.4-8.2) g/dL Albumin 2.6 L (3.4-5.0) g/dL Urine Color (Yellw/Straw) Urine Clarity (Clear) Urine pH (5.0-8.5) Ur Specific [place] (1.002-1.035) Urine Protein (Neg-Trace) mg/dL Urine Glucose (UA) (Negative) mg/dL Urine Ketones (Negative) mg/dL Urine Occult Blood (Negative) Urine Nitrate (Negative) Urine Bilirubin (Negative) Urine Urobilinogen (Less than 2) mg/dL Ur Leukocyte Esterase (Negative) Urine RBC (0-3) /hpf Urine WBC (0-5) /hpf Urine WBC Clumps (None) Urine Bacteria (None) /hpf Hyaline Casts (0-3) /lpf Urine Yeast (None) /hpf Micro UA Comment Urine Culture Comments 04/11/18 04/11/18 Range/Units 15:35 17:10 WBC (4.0-11.0) th/mm3 RBC (4.00-5.30) mil/mm3 Hgb (11.6-15.3) gm/dL Hct (35.0-46.0) % MCV (80.0-100.0) fL MCH (27.0-34.0) pg MCHC (32.0-36.0) % RDW (11.6-17.2) % Plt Count (150-450) th/mm3 MPV (7.0-11.0) fL Neut % (Auto) (16.0-70.0) % Lymph % (Auto) (9.0-44.0) % Duval % (Auto) (0.0-8.0) % Eos % (Auto) (0.0-4.0) % Baso % (Auto) (0.0-2.0) % Neut # (Auto) (1.8-7.7) th/mm3 Lymph # (Auto) (1.0-4.8) th/mm3 [place] # (Auto) (0.0-0.9) th/mm3 Eos # (Auto) (0.0-0.4) th/mm3 Baso # (Auto) (0.0-0.2) th/mm3 WBC Differential Differential Comment Sodium 134 L (136-145) meq/L Potassium 6.4 H (3.5-5.1) meq/L Chloride 106 (98-107) meq/L Carbon Dioxide 17.1 L (21.0-32.0) meq/L Anion Gap 11 (5-15) meq/L BUN 34 H (7-18) mg/dL Creatinine 0.82 (0.50-1.00) mg/dL Estimated GFR 67 L (>89) mL/min Random Glucose 115 H (74-106) mg/dL Lactic Acid (0.4-2.0) mmol/L Calcium 8.1 L (8.5-10.1) mg/dL Total Bilirubin (0.2-1.0) mg/dL AST (15-37) U/L ALT (10-53) U/L Alkaline Phosphatase (45-117) U/L Total Protein (6.4-8.2) g/dL Albumin (3.4-5.0) g/dL Urine Color Sadie (Yellw/Straw) Urine Clarity Cloudy H (Clear) Urine pH 5.0 (5.0-8.5) Ur Specific [place] 1.018 (1.002-1.035) Urine Protein 30 H (Neg-Trace) mg/dL Urine Glucose (UA) Negative (Negative) mg/dL Urine Ketones Trace H (Negative) mg/dL Urine Occult Blood Small H (Negative) Urine Nitrate Negative (Negative) Urine Bilirubin Negative (Negative) Urine Urobilinogen 2.0 H (Less than 2) mg/dL Ur Leukocyte Esterase Moderate H (Negative) Urine RBC 47 H (0-3) /hpf Urine WBC 87 H (0-5) /hpf Urine WBC Clumps Moderate H (None) Urine Bacteria Few H (None) /hpf Hyaline Casts 1 (0-3) /lpf Urine Yeast Moderate H (None) /hpf Micro UA Comment Cath-culture ind Urine Culture Comments Cath-cult indicated ECG Data EKG Prior to Arrival: No Attestation: I personally reviewed and interpreted this ECG as follows: Prior ECG tracings: not available for review Discharge Plan Discharge Disposition Patient Disposition: 30 Still Patient Discharge Details Diagnosis: Emesis, Sepsis, Acute hyperkalemia, Urinary tract infection Physicians Team ED Provider: Erica Jarrett Primary Care Provider: UNKNOWN, Rxs /Orders / Referrals /Forms Prescriptions: No Action diltiazem HCl [Cartia XT] 240 mg Capsule,Extended Release 24hr 240 mg PO DAILY RF: 0 potassium 10 meq PO DAILY RF: 0 Discharge Interventions Interventions: Vital Signs Last Done: 04/11/18 18:15 Status ED Status: With Doctor
[2018-04-11 15:58] LABS: Baso % (Auto) 0.1 % (0.0-2.0); Hematocrit 45.2 % (35.0-46.0); Hemoglobin 14.4 gm/dL (11.6-15.3); Lymph # (Auto) 1.4 th/mm3 (1.0-4.8); Lymph % (Auto) 6.9 % (9.0-44.0); Mean Corpuscular HGB Conc 31.8 % (32.0-36.0); Mean Corpuscular Hemoglobin 27.8 pg (27.0-34.0); Mean Corpuscular Volume 87.4 fL (80.0-100.0); Mean Platelet Volume 8.4 fL (7.0-11.0); Mono # (Auto) 1.3 th/mm3 (0.0-0.9); Mono % (Auto) 6.3 % (0.0-8.0); Neut # (Auto) 17.2 th/mm3 (1.8-7.7); Neut % (Auto) 86.7 % (16.0-70.0); Platelet Count 319 th/mm3 (150-450); Red Blood Count 5.18 mil/mm3 (4.00-5.30); Red Cell Distribution Width 18.4 % (11.6-17.2); White Blood Count 19.9 th/mm3 (4.0-11.0)
[2018-04-11 16:10] LABS: Bacteria,Urine Few /hpf; Bilirubin,Urine Negative (Negative); Clarity,Urine Cloudy (Clear); Color,Urine Amber (Yellw/Straw); Glucose,Urine (UA) Negative (Negative); Hyaline Casts,Urine 1 /lpf (0-3); Leukocyte Esterase,Urine Moderate (Negative); Nitrite,Urine Negative (Negative); Specific Gravity,Urine 1.018 (1.002-1.035)
[2018-04-11] MEDS ORDERED: Piperacil/Tazo 3.375 GM Premix 50 ML IV.SIG ONE (16:14)
[2018-04-11 16:27] LABS: Alanine Aminotransferase 22 U/L (10-53); Albumin 2.6 g/dL (3.4-5.0); Anion Gap 10 meq/L (5-15); Aspartate Aminotransferase 30 U/L (15-37); Blood Urea Nitrogen 36 mg/dL (7-18); Calcium 8.6 mg/dL (8.5-10.1); Carbon Dioxide 22.8 meq/L (21.0-32.0); Chloride 101 meq/L (98-107); Glomerular Filtration Rate 57 mL/min (>89); Glucose,Random 143 mg/dL (74-106); Potassium 5.9 meq/L (3.5-5.1); Sodium 134 meq/L (136-145)
[2018-04-11 16:28] LABS: Alkaline Phosphatase 91 U/L (45-117); Total Protein 6.5 g/dL (6.4-8.2)
--- NOTE | 2018-04-11 17:47 | ECG ---
Date Performed: 04/11/2018 Time Performed: 15:15:54 PTAGE: 82 years EKG: Unclear supraventricular tachycardia LEFT BUNDLE BRANCH BLOCK ABNORMAL ECG Compared to prio r electrocardiogram, rate has increased. I cannot accurately compare rhythm. DOCTOR: Mateo Phelps Interpretating Date/Time 04/11/2018 17:45:37
[2018-04-11 17:52] LABS: Calcium 8.1 mg/dL (8.5-10.1); Carbon Dioxide 17.1 meq/L (21.0-32.0); Potassium 6.4 meq/L (3.5-5.1)
[2018-04-11] MEDS ORDERED: Dextrose 50% in Water 50 ML Vial IV.PUSH ONE (18:10)
[2018-04-11] MEDS ORDERED: Calcium Chloride Inj 1 GM in Sodium Chlor 0.9% Inj 100 ML IV.SIG ONE (18:10)
[2018-04-11] MEDS ORDERED: Acetaminophen 325 MG Tablet PO PRN (18:31)
[2018-04-11] MEDS ORDERED: Morphine Inj 4 MG/ML Vial IV.PUSH PRN (18:31)
[2018-04-11] MEDS ORDERED: Bisacodyl 10 MG Supp RECTAL PRN (18:31)
[2018-04-11] MEDS ORDERED: Sodium Polystyrene Sulfonate/Sorbitol Liq 15 GM/60 ML UDC PO ONE (18:36)
--- NOTE | 2018-04-11 18:38 | P.HPCC ---
History of Present Illness Primary Care Physician: UNKNOWN History of Present Illness: 82-year-old very pleasant female with past medical history of atrial fibrillation, hypertension, dyslipidemia and some mention dementia presents with nausea/Vomiting/Diarrhea and altered mental status. The patient is able to provide answers to simple questions however is unable to specify when and how her symptoms started. In the emergency department she was found to have a potassium above 5 with repeat 6.4 and is therefore admitted to ICU telemetry. Inpatient Certification: I certify that the inpatient services were ordered in accordance with Medicare regulations governing the order. This includes certification that hospital inpatient services are reasonable and necessary and in the case of services not specified as inpatient-only under 42 CFR 419.22(n), that they are appropriately provided as inpatient services in accordance to with the 2-midnight benchmark under 43 CFR 412.3(e) Estimated Total Length of Stay (Days): 5 Plans for Post Hospital Care: Not yet determined Review of Systems unobtainable due to mental condition PMFSH - History History Provided By: Professional Architect / EMT - Medical History Medical History: Medical History (Last Updated 04/11/18 @ 15:40 by Erica Jarrett) Atrial fibrillation Encephalopathy due to infection Hyperlipemia Hypertension Sepsis - Surgical History Surgical History: Surgical History (Last Updated 04/11/18 @ 15:41 by Erica Jarrett) H/O abdominal surgery - Tobacco History Smoking Status: Unknown if ever smoked - Alcohol History How Often Do You Have a Drink Containing Alcohol: Never - Substance Use History Substance History: No History of Abuse - Travel History Recent Travel in the [place] Within the Last 8 Weeks: No Recent Travel Out of the Country Within the Last 8 Weeks: No - Immunization History Tetanus Immunization: Unsure Medications and Allergies Active Medications: Active Medications Acetaminophen (Tylenol) 650 mg PO Q6H PRN PRN Reason: PAIN 1-10 AND/OR FEVER >101F Al Hydroxide/Mg Hydroxide (Milk Of Magnesia Liq) 30 ml PO Q12H PRN PRN Reason: Mild Constipation Albuterol (Duoneb Neb (Prn)) 1 ampul NEB Q2HR NEB PRN PRN Reason: WHEEZING Bisacodyl (Dulcolax Supp) 10 mg RECTAL DAILY PRN PRN Reason: SEVERE CONSITIPATION Chlorhexidine Gluconate (Chlorhexidine 2% Cloth) 3 pack TOPICAL DAILY@0400 AMELEI Stop: 04/17/18 03:59 Chlorhexidine Gluconate (Chlorhexidine 2% Cloth) 3 pack TOPICAL DAILY@0400 PRN PRN Reason: Extra cloth needed Stop: 04/17/18 03:59 Diltiazem HCl (Cardizem Cd 24hr) 240 mg PO DAILY [facility] Famotidine (Pepcid Pf Inj) 20 mg IV.PUSH Q12HR [facility] Heparin Sodium (Porcine) (Heparin Inj) 5,000 units SQ Q8H AMELIE Calcium Chloride 1 gm/ Sodium (Chloride) 110 mls @ 110 mls/hr IV.SIG ONCE ONE Stop: 04/11/18 19:09 Last Admin: 04/11/18 18:36 Dose: 110 mls/hr Sodium Chloride (Ns Inj) 1,000 mls @ 150 mls/hr IV.CONT .Q6H40M [facility] Lactulose (Lactulose Liq) 30 ml PO DAILY PRN PRN Reason: SEVERE CONSITIPATION Morphine Sulfate (Morphine Inj) 2 mg IV.PUSH Q2H PRN PRN Reason: PAIN SCALE 6 TO 10 Ondansetron HCl (Zofran Inj) 4 mg IV.PUSH Q6H PRN PRN Reason: NAUSEA OR VOMITING Senna/Docusate Sodium (Jeanette-Colace) 1 tab PO BID [facility] Sennosides (Senokot) 17.2 mg PO Q12H PRN PRN Reason: Moderate Constipation Sodium Chloride (Ns Flush) 2 ml IV.FLUSH PRN PRN PRN Reason: FLUSH AFTER USING IV ACCESS Sodium Chloride (Ns Flush) 2 ml IV.FLUSH BID [facility] Sodium Chloride (Ns Flush) 2 ml IV.FLUSH PRN PRN PRN Reason: FLUSH AFTER USING IV ACCESS Sodium Polystyrene Sulfonate (Kayexalate Liq) 30 gm PO ONCE ONE Stop: 04/11/18 18:37 Allergies Allergy/AdvReac Type Severity Reaction Status Date / Time No Known Allergies Allergy Unknown Uncoded 02/03/18 18:45 Home Medications Medication Instructions Recorded Confirmed Type diltiazem HCl [Cartia XT] 240 mg PO DAILY 04/11/18 04/11/18 History potassium 10 meq PO DAILY 04/11/18 04/11/18 History Results - Labs CBC & Chem 7: 04/12/18 04:52 04/11/18 23:10 Labs: Short CBC 04/11/18 Range/Units 15:35 WBC 19.9 H (4.0-11.0) th/mm3 Hgb 14.4 (11.6-15.3) gm/dL Hct 45.2 (35.0-46.0) % Plt Count 319 (150-450) th/mm3 BMP 04/11/18 04/11/18 15:35 17:10 Sodium 134 L 134 L Potassium 5.9 H 6.4 H Chloride 101 106 Carbon Dioxide 22.8 17.1 L BUN 36 H 34 H Creatinine 0.95 0.82 Calcium 8.6 8.1 L Liver Function 04/11/18 Range/Units 15:35 Total Bilirubin 0.7 (0.2-1.0) mg/dL AST 30 (15-37) U/L ALT 22 (10-53) U/L Alkaline Phosphatase 91 (45-117) U/L Albumin 2.6 L (3.4-5.0) g/dL Urine 04/11/18 Range/Units 15:35 Urine Color Sadie (Yellw/Straw) Urine Clarity Cloudy H (Clear) Urine pH 5.0 (5.0-8.5) Ur Specific [place] 1.018 (1.002-1.035) Urine Protein 30 H (Neg-Trace) mg/dL Urine Glucose (UA) Negative (Negative) mg/dL - Imaging Impressions Abdomen/Pelvis CT 04/11/18 15:12 CONCLUSION: Exam Vital signs: Vital Signs 04/11/18 15:13 04/11/18 15:18 04/11/18 15:27 Temperature 98.0 F Pulse Rate 125 H 107 H Respiratory Rate 20 22 Blood Pressure 117/79 126/66 Pulse Oximetry 96 96 95 04/11/18 17:47 04/11/18 18:15 Temperature Pulse Rate 110 H 103 H Respiratory Rate 20 20 Blood Pressure 109/62 109/54 L Pulse Oximetry 97 95 Intake & Output 04/10/18 04/11/18 04/11/18 18:59 06:59 18:59 Output Total 350 / 350 Balance -350 / -350 Weight 90.718 kg Output: Gastric Drainage 350 / 350 Right Nare Nasogastric Tube 350 / 350 - Constitutional mild distress - Routine HEENT Exam Head: Present: normocephalic, atraumatic Eye: Present: PERRL ENT: Present: mucous membranes moist - Routine Neck Exam Present: supple, full ROM. Absent: JVD, carotid bruit - Routine Respiratory Exam Absent: accessory muscle use, rhonchi, stridor, wheezes - Routine Cardiovascular Exam Present: RRR, S1, S2 - Routine Abdominal Exam Present: soft, normoactive bowel sounds. Absent: tenderness, distended - Routine Extremities Exam Absent: cyanosis, clubbing, edema - Routine Skin Exam Present: intact - Routine Neurological Exam Present: alert. Absent: sensory deficit, motor deficit Caprini VTE Risk Assessment Caprini VTE Risk Assessment: Moderate/High Risk (score >= 2) Caprini Risk Assessment Model: Point Value = 1 Point Value = 2 Point Value = 3 Point Value = 5 Age 41-60 Minor surgery BMI > 25 kg/m2 Swollen legs Varicose veins or History of unexplained or recurrent spontaneous Oral contraceptives or hormone replacement Sepsis (< 1 month) Serious lung disease, including pneumonia (< 1 month) Abnormal pulmonary function Acute myocardial infarction Congestive heart failure (< 1 month) History of inflammatory bowel disease Medical patient at bed rest Age 61-74 Arthroscopic surgery Major open surgery (> 45 min) Laparoscopic surgery (> 45 min) Malignancy Confined to bed (> 72 hours) Immobilizing plaster cast Central venous access Age >= 75 History of VTE Family history of VTE Factor V Leiden Prothrombin [id number] Lupus anticoagulant Anticardiolipin antibodies Elevated serum homocysteine Heparin-induced thrombocytopenia Other congenital or acquired thrombophilia Stroke (< 1 month) Elective arthroplasty Hip, pelvis, or leg fracture Acute spinal cord injury (< 1 month) Prophylaxis Regimen: Total Risk Factor Score Risk Level Prophylaxis Regimen 0-1 Low Early ambulation 2 Moderate Order ONE of the following: *Sequential Compression Device (SCD) *Heparin 5000 units SQ BID 3-4 Higher Order ONE of the following medications: *Heparin 5000 units SQ TID *Enoxaparin/Lovenox 40 mg SQ daily (WT < 150 kg, CrCl > 30 mL/min) *Enoxaparin/Lovenox 30 mg SQ daily (WT < 150 kg, CrCl > 10-29 mL/min) *Enoxaparin/Lovenox 30 mg SQ BID (WT < 150 kg, CrCl > 30 mL/min) AND/OR *Sequential Compression Device (SCD) 5 or more Highest Order ONE of the following medications: *Heparin 5000 units SQ TID (Preferred with Epidurals) *Enoxaparin/Lovenox 40 mg SQ daily (WT < 150 kg, CrCl > 30 mL/min) *Enoxaparin/Lovenox 30 mg SQ daily (WT < 150 kg, CrCl > 10-29 mL/min) *Enoxaparin/Lovenox 30 mg SQ BID (WT < 150 kg, CrCl > 30 mL/min) AND *Sequential Compression Device (SCD) Assessment and Plan - Assessment and Plan Plan: Hyperkalemia -Hold potassium supplement -IV hydration -Kayexalate -Monitor trend -Series of EKGs and telemetry Nausea vomiting -CT abdomen shows only constipation -As needed Zofran -Duration -Laxatives Atrial fibrillation -Diltiazem DVT GI prophylaxis -Teds SCDs -Subcu heparin -Pepcid Critical Care: The total critical care time was 35 minutes. Time to perform other separately billable procedures was not included in the critical care time.
[2018-04-11 18:54] LABS: ABG Base Excess -0.8 mmol/L (-2-2); ABG PCO2 32 mmHg (38-42); ABG PO2 75 mmHg (61-120)
--- NOTE | 2018-04-11 19:23 | CT ---
EXAM DATE: 04/11/2018 6:08 PM EDT AGE/SEX: 82 years / Female INDICATIONS: Nausea and vomiting. CLINICAL DATA: This is the patient's initial encounter. Patient reports that signs and symptoms have been present for 1 day and indicates a pain score of 6/10. MEDICAL/SURGICAL HISTORY: Hypertension. Cardiovascular disease. . Abdomen ORAL CONTRAST: No oral contrast ingested. RADIATION DOSE: 15.71 CTDI (mGy) COMPARISON: [facility] [place], CT ABDOMEN & PELVIS W/O CONTRAST, 02/04/2018. . TECHNIQUE: Multiple contiguous axial images were obtained through the abdomen and pelvis following b olus infusion of 100 ml Omnipaque 350 (iohexol) nonionic water-soluble contrast as a single exam do se. No oral contrast ingested. Using automated exposure control and adjustment of the mA and/or kV a ccording to patient size, radiation dose was kept as low as reasonably achievable to obtain optimal d iagnostic quality images. DICOM format image data is available electronically for review and compari son. FINDINGS: Lower Lungs: The visualized lower lungs are clear. Liver: The liver has a homogeneous density there is a 1.4 cm hypodense mass seen at the anterior aspe ct of the lateral segment the left lobe of liver likely related to a cyst or hemangioma. No calcified gallstones are seen. There is no dilation of the biliary tree. Spleen: Clips are seen at the splenic hilar region. The spleen itself appears grossly normal. Pancreas: Unremarkable without mass or calcification. Kidneys: The kidneys appear small. There is cortical thinning especially on the right. There is mild cystic change in the central aspect of the kidneys likely related to parapelvic cysts. The ureters a re not dilated. Adrenal Glands: Unremarkable. Aorta: The aorta and proximal iliac vessels are grossly unremarkable without aneurysmal dilation. Bowel/Mesentery: There is distended small bowel large bowel. The colon is filled with stool. There i s debris seen in the distal small bowel. The rectum is probably distended with stool measuring up to 9 cm in diameter. There is an NG tube in place. The stomach is decompressed. Abdominal Wall: Intact. There is edema seen in the lateral subcutaneous soft tissues over the abdome n and pelvis. This is likely related to some anasarca. Retroperitoneum: No evidence of adenopathy in the retrocrural, para-aortic, or deep pelvic regions. Bladder: There is a Wren catheter present. Reproductive Organs: The patient appears to be status post hysterectomy. Inguinal: The inguinal region is unremarkable without evidence of adenopathy. Bony Structures: There is chronic compression deformity is at the L2 and L3 vertebral bodies. There does appear to be possible hemangiomas at these levels. The deformities were present on the prior exa m. There are old healed left rib fracture deformities. 1. Dilated bowel with a large amount stool seen throughout the colon. There is also debris in the di stal small bowel. The bowel dilatation is likely secondary to fecal impaction. 2. The kidneys appear small suggesting some degree of atrophy. 3. Persistent compression deformities at the L2 and L3 vertebral bodies. Electronically signed by: Shashank Watson MD 04/11/2018 7:22 PM EDT
[2018-04-11] MEDS: Sod Chloride 0.9% Inj 1,000 ML IV.CONT SCH (20:25)
[2018-04-11] MEDS: Heparin - SQ 10,000 UNITS/ML Vial SQ SCH (20:25)
[2018-04-11] MEDS: Famotidine PF Inj 20 MG/2 ML Vial IV.PUSH SCH (21:15)
[2018-04-11] MEDS: Senna/Docusate Sodium 8.6/50 MG Tablet PO SCH (21:17)
--- NOTE | 2018-04-11 21:57 | ECG ---
Date Performed: 04/11/2018 Time Performed: 20:06:32 PTAGE: 82 years EKG: PROBABLE SINUS TACHYCARDIA LEFT BUNDLE BRANCH BLOCK ABNORMAL ECG I cannot accurately compar e rhythm because of prior baseline artifact. PREVIOUS TRACING : 04/11/2018 15.15 DOCTOR: Mateo Phelps Interpretating Date/Time 04/11/2018 21:55:52
[2018-04-11 23:53] LABS: Calcium 8.6 mg/dL (8.5-10.1); Carbon Dioxide 22.8 meq/L (21.0-32.0); Potassium 5.3 meq/L (3.5-5.1)
[2018-04-12] MEDS: Sod Chloride 0.9% Inj 1,000 ML IV.CONT SCH ×3 (03:43→17:36)
[2018-04-12] MEDS: Heparin - SQ 10,000 UNITS/ML Vial SQ SCH ×3 (03:47→21:03)
[2018-04-12] MEDS: Chlorhexidine Gluconate 2% 1 Pack (2 Cloths) TOPICAL SCH (03:48)
[2018-04-12] MEDS ORDERED: Chlorhexidine Gluconate 2% 1 Pack (2 Cloths) TOPICAL PRN (04:00)
[2018-04-12 05:07] LABS: Baso % (Auto) 0.2 % (0.0-2.0); Eos % (Auto) 0.1 % (0.0-4.0); Hemoglobin 13.4 gm/dL (11.6-15.3); Lymph # (Auto) 1.4 th/mm3 (1.0-4.8); Lymph % (Auto) 16.9 % (9.0-44.0); Mean Corpuscular HGB Conc 31.8 % (32.0-36.0); Mean Corpuscular Volume 88.1 fL (80.0-100.0); Mean Platelet Volume 8.2 fL (7.0-11.0); Mono # (Auto) 0.9 th/mm3 (0.0-0.9); Mono % (Auto) 10.5 % (0.0-8.0); Neut # (Auto) 6.1 th/mm3 (1.8-7.7); Neut % (Auto) 72.3 % (16.0-70.0); Platelet Count 241 th/mm3 (150-450); Red Blood Count 4.77 mil/mm3 (4.00-5.30); Red Cell Distribution Width 18.4 % (11.6-17.2); White Blood Count 8.5 th/mm3 (4.0-11.0)
[2018-04-12 05:37] LABS: Alanine Aminotransferase 20 U/L (10-53); Albumin 2.3 g/dL (3.4-5.0); Anion Gap 9 meq/L (5-15); Aspartate Aminotransferase 26 U/L (15-37); Blood Urea Nitrogen 35 mg/dL (7-18); Calcium 7.7 mg/dL (8.5-10.1); Carbon Dioxide 23.9 meq/L (21.0-32.0); Chloride 108 meq/L (98-107); Glomerular Filtration Rate 72 mL/min (>89); Glucose,Random 93 mg/dL (74-106); Magnesium 2.1 mg/dL (1.5-2.5); Potassium 4.9 meq/L (3.5-5.1); Sodium 141 meq/L (136-145)
[2018-04-12 05:44] LABS: Alkaline Phosphatase 82 U/L (45-117); Phosphorus 3.9 mg/dL (2.5-4.9); Prealbumin 11 mg/dL (20-40); Total Protein 5.7 g/dL (6.4-8.2)
--- NOTE | 2018-04-12 07:30 | ECG ---
Date Performed: 04/12/2018 Time Performed: 01:24:44 PTAGE: 82 years EKG: Marked baseline artifact PROBABLE Sinus tachycardia with borderline 1st degree A-V block. P ossible right atrial abnormality Left bundle branch block Low QRS voltages in precordial leads Abnorm al ECG No significant change from prior electrocardiogram. DOCTOR: Mateo Phelps Interpretating Date/Time 04/12/2018 07:28:54
[2018-04-12] MEDS: Senna/Docusate Sodium 8.6/50 MG Tablet PO SCH ×2 (08:00→21:04)
[2018-04-12] MEDS: dilTIAZem CD 240 MG Capsule PO SCH (08:00)
[2018-04-12] MEDS: Famotidine PF Inj 20 MG/2 ML Vial IV.PUSH SCH ×2 (08:00→21:03)
[2018-04-12] MEDS ORDERED: Sod Phosphate/Sod Biphosphate (Adult) Enema 133 ML Bottle RECTAL ONE (08:27)
--- NOTE | 2018-04-12 08:30 | P.PNCC ---
Subjective Subjective Remarks/Hospital Course: 82-year-old female with past medical history of atrial fibrillation, hypertension, dyslipidemia and some dementia presents with nausea/Vomiting/ Diarrhea and altered mental status. The patient is able to provide answers to simple questions however is unable to specify when and how her symptoms started. In the emergency department she was found to have a potassium above 5 with repeat 6.4 and is therefore admitted to ICU telemetry. SUBJ 04/12: Patient is lying in bed oriented 2. NG tube in place with feculent appearing material. CT abdomen pelvis showed fecal impaction and dilated colon. GI consult requested for further evaluation. Fleets enema and Dulcolax suppository ordered. Potassium is 4.9 today. Objective Vital Signs / I&O: Vital Signs 04/11/18 15:13 04/11/18 15:18 04/11/18 15:27 Temperature 98.0 F Pulse Rate 125 H 107 H Respiratory Rate 20 22 Blood Pressure 117/79 126/66 Pulse Oximetry 96 96 95 04/11/18 17:47 04/11/18 18:15 04/11/18 19:00 Temperature Pulse Rate 110 H 103 H 107 H Respiratory Rate 20 20 16 Blood Pressure 109/62 109/54 L 112/66 Pulse Oximetry 97 95 98 04/11/18 20:00 04/11/18 20:30 04/11/18 21:00 Temperature 97.6 F Pulse Rate 102 H 110 H 110 H Respiratory Rate 16 20 20 Blood Pressure 113/69 121/79 111/68 Pulse Oximetry 99 98 98 04/11/18 22:00 04/11/18 23:00 04/12/18 00:00 Temperature 97.9 F Pulse Rate 114 H 116 H 114 H Respiratory Rate 21 21 18 Blood Pressure 112/64 124/63 110/62 Pulse Oximetry 96 97 100 04/12/18 01:00 04/12/18 02:00 04/12/18 03:00 Temperature Pulse Rate 107 H 107 H 108 H Respiratory Rate 15 16 17 Blood Pressure 102/57 L 94/59 L 102/53 L Pulse Oximetry 100 100 100 04/12/18 04:00 04/12/18 05:00 04/12/18 06:00 Temperature 98.8 F Pulse Rate 106 H 110 H 107 H Respiratory Rate 18 18 15 Blood Pressure 101/57 L 107/53 L 105/62 Pulse Oximetry 100 100 99 Intake & Output 04/11/18 04/12/18 04/12/18 18:59 06:59 18:59 Intake Total 1000 / 1000 1000 / 1000 Output Total 350 / 350 1475 / 1475 Balance -350 / -350 -475 / -475 1000 / 1000 Weight 90.718 kg 97.5 kg Intake: IV 1000 / 1000 1000 / 1000 NS Inj 1,000 ML @ 150 mls/hr IV 1000 / 1000 1000 / 1000 .CONT .[id number] [facility] Rx#:[id number] Output: Emesis 100 / 100 Urine Amount (Catheter) 375 / 375 Indwelling Urethral Catheter 375 / 375 Gastric Drainage 350 / 350 1000 / 1000 Right Nare Nasogastric Tube 350 / 350 1000 / 1000 Other: Date of Last Bowel Movement 04/11/18 # Bowel Movements 1 Weight On Admission 96 kg Result Diagrams: 04/12/18 04:52 04/12/18 04:52 Other Results: - Constitutional mild distress, states "I need water" - Routine HEENT Exam Head: normocephalic, atraumatic Eye: Pupils are equal ENT: mucous membranes dry - Routine Neck Exam Supple, full ROM. No JVD, carotid bruit - Routine Respiratory Exam No accessory muscle use, rhonchi, stridor, wheezes - Routine Cardiovascular Exam Present: RRR, S1, S2 - Routine Abdominal Exam Present: soft, normoactive bowel sounds. Mildly distended nontender - Routine Extremities Exam 2+ edema - Routine Skin Exam Present: intact - Routine Neurological Exam Present: alert, awake oriented to person and place not to time. Follows commands on upper extremities Assessment and Plan - Assessment and Plan Plan: Hyperkalemia -Hold potassium supplement -IV hydration, reduce IVF to 50 ml per hour due to pedal edema -s/p Kayexalate -Monitor trend, K 4.9 today -Series of EKGs and telemetry Nausea vomiting -CT abdomen shows only constipation -As needed Zofran -Duration -Laxatives, Fleet Enema -GI consulted for feculent appearing material from NG tube Atrial fibrillation -Diltiazem Probable Dementia -Monitor neuro status closely DVT GI prophylaxis -Teds SCDs -Subcu heparin -Pepcid Critical Care: Level 2 Consult hospitalist to assume care in am. Transfer to step down unit with Tele
--- NOTE | 2018-04-12 09:46 | P.CONGI ---
History of Present Illness Consult date: 04/12/18 Consult reason: Nausea, vomiting Chief complaint: sepsis,hyperkalemia,fecal emsis,uti History of Present Illness: This is a 82 yo F with dementia who is unable to provide any history, therefore all history has been obtained through chart review and discussion with RN. [place] was sent from [place] for nausea, vomiting, diarrhea. According to RN pt with multiple episode of emesis yesterday, NG tube was placed revealing fecal like material, continues to LIWS, pt with no further emesis. RN does not believe pt has had BM since admission. CT consistent with fecal impaction. Pt currently admitted to ICU for electrolyte abnormalities. 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 Hyperlipemia Hypertension Sepsis - Surgical History Surgical History: Surgical History (Last Updated 04/11/18 @ 15:41 by Erica Jarrett) H/O abdominal surgery - Tobacco History Second Hand Smoke Exposure: No Smoking Status: Unknown if ever smoked - Alcohol History How Often Do You Have a Drink Containing Alcohol: Never - Substance Use History Substance History: No History of Abuse - Travel History Recent Travel in the [place] Within the Last 8 Weeks: No Recent Travel Out of the Country Within the Last 8 Weeks: No - Immunization History Tetanus Immunization: Unsure <Susan Pride - Last Filed: 04/12/18 09:57> - Medical History Medical History: Medical History (Last Updated 04/11/18 @ 15:40 by Erica Jarrett) Atrial fibrillation Encephalopathy due to infection Hyperlipemia Hypertension Sepsis - Surgical History Surgical History: Surgical History (Last Updated 04/11/18 @ 15:41 by Erica Jarrett) H/O abdominal surgery <Mary Hurt - Last Filed: 04/12/18 18:30> Medications and Allergies Active Medications: Active Medications Acetaminophen (Tylenol) 650 mg PO Q6H PRN PRN Reason: PAIN 1-10 AND/OR FEVER >101F Al Hydroxide/Mg Hydroxide (Milk Of Magnesia Liq) 30 ml PO Q12H PRN PRN Reason: Mild Constipation Albuterol (Duoneb Neb (Prn)) 1 ampul NEB Q2HR NEB PRN PRN Reason: WHEEZING Bisacodyl (Dulcolax Supp) 10 mg RECTAL DAILY PRN PRN Reason: SEVERE CONSITIPATION Chlorhexidine Gluconate (Chlorhexidine 2% Cloth) 3 pack TOPICAL DAILY@0400 [facility] Stop: 04/17/18 03:59 Last Admin: 04/12/18 03:48 Dose: 3 pack Chlorhexidine Gluconate (Chlorhexidine 2% Cloth) 3 pack TOPICAL DAILY@0400 PRN PRN Reason: Extra cloth needed Stop: 04/17/18 03:59 Diltiazem HCl (Cardizem Cd 24hr) 240 mg PO DAILY [facility] Last Admin: 04/12/18 08:00 Dose: 240 mg Famotidine (Pepcid Pf Inj) 20 mg IV.PUSH Q12HR [facility] Last Admin: 04/12/18 08:00 Dose: 20 mg Heparin Sodium (Porcine) (Heparin Inj) 5,000 units SQ Q8H [facility] Last Admin: 04/12/18 03:47 Dose: 5,000 units Sodium Chloride (Ns Inj) 1,000 mls @ 150 mls/hr IV.CONT .Q6H40M [facility] Last Admin: 04/12/18 08:04 Dose: 150 mls/hr Lactulose (Lactulose Liq) 30 ml PO DAILY PRN PRN Reason: SEVERE CONSITIPATION Magnesium Citrate (Citroma Liq) 300 ml PO ONCE ONE Stop: 04/12/18 11:31 Morphine Sulfate (Morphine Inj) 2 mg IV.PUSH Q2H PRN PRN Reason: PAIN SCALE 6 TO 10 Ondansetron HCl (Zofran Odt) 4 mg PO Q6H PRN PRN Reason: NAUSEA OR VOMITING Senna/Docusate Sodium (Jeanette-Colace) 1 tab PO BID [facility] Last Admin: 04/12/18 08:00 Dose: 1 tab Sennosides (Senokot) 17.2 mg PO Q12H PRN PRN Reason: Moderate Constipation Sodium Chloride (Ns Flush) 2 ml IV.FLUSH BID [facility] Last Admin: 04/12/18 08:01 Dose: 2 ml Sodium Chloride (Ns Flush) 2 ml IV.FLUSH PRN PRN PRN Reason: FLUSH AFTER USING IV ACCESS <JermanhansWesSusan - Last Filed: 04/12/18 09:57> Active Medications: Active Medications Acetaminophen (Tylenol) 650 mg PO Q6H PRN PRN Reason: PAIN 1-10 AND/OR FEVER >101F Al Hydroxide/Mg Hydroxide (Milk Of Magnesia Liq) 30 ml PO Q12H PRN PRN Reason: Mild Constipation Albuterol (Duoneb Neb (Prn)) 1 ampul NEB Q2HR NEB PRN PRN Reason: WHEEZING Bisacodyl (Dulcolax Supp) 10 mg RECTAL DAILY PRN PRN Reason: SEVERE CONSITIPATION Chlorhexidine Gluconate (Chlorhexidine 2% Cloth) 3 pack TOPICAL DAILY@0400 [facility] Stop: 04/17/18 03:59 Last Admin: 04/12/18 03:48 Dose: 3 pack Chlorhexidine Gluconate (Chlorhexidine 2% Cloth) 3 pack TOPICAL DAILY@0400 PRN PRN Reason: Extra cloth needed Stop: 04/17/18 03:59 Diltiazem HCl (Cardizem Cd 24hr) 240 mg PO DAILY [facility] Last Admin: 04/12/18 08:00 Dose: 240 mg Famotidine (Pepcid Pf Inj) 20 mg IV.PUSH Q12HR [facility] Last Admin: 04/12/18 08:00 Dose: 20 mg Heparin Sodium (Porcine) (Heparin Inj) 5,000 units SQ Q8H [facility] Last Admin: 04/12/18 12:44 Dose: 5,000 units Sodium Chloride (Ns Inj) 1,000 mls @ 50 mls/hr IV.CONT .Q20H [facility] Last Infusion: 04/12/18 18:15 Dose: 50 mls/hr Lactulose (Lactulose Liq) 30 ml PO DAILY PRN PRN Reason: SEVERE CONSITIPATION Morphine Sulfate (Morphine Inj) 2 mg IV.PUSH Q2H PRN PRN Reason: PAIN SCALE 6 TO 10 Ondansetron HCl (Zofran Odt) 4 mg PO Q6H PRN PRN Reason: NAUSEA OR VOMITING Senna/Docusate Sodium (Jeanette-Colace) 1 tab PO BID [facility] Last Admin: 04/12/18 08:00 Dose: 1 tab Sennosides (Senokot) 17.2 mg PO Q12H PRN PRN Reason: Moderate Constipation Sodium Chloride (Ns Flush) 2 ml IV.FLUSH BID [facility] Last Admin: 04/12/18 08:01 Dose: 2 ml Sodium Chloride (Ns Flush) 2 ml IV.FLUSH PRN PRN PRN Reason: FLUSH AFTER USING IV ACCESS <TejMary fraser - Last Filed: 04/12/18 18:30> Allergies Allergy/AdvReac Type Severity Reaction Status Date / Time No Known Allergies Allergy Unknown Uncoded 02/03/18 18:45 Home Medications Medication Instructions Recorded Confirmed Type diltiazem HCl [Cartia XT] 240 mg PO DAILY 04/11/18 04/11/18 History potassium 10 meq PO DAILY 04/11/18 04/11/18 History Exam Vital signs: Vital Signs 04/11/18 15:13 04/11/18 15:18 04/11/18 15:27 Temperature 98.0 F Pulse Rate 125 H 107 H Respiratory Rate 20 22 Blood Pressure 117/79 126/66 Pulse Oximetry 96 96 95 04/11/18 17:47 04/11/18 18:15 04/11/18 19:00 Temperature Pulse Rate 110 H 103 H 107 H Respiratory Rate 20 20 16 Blood Pressure 109/62 109/54 L 112/66 Pulse Oximetry 97 95 98 04/11/18 20:00 04/11/18 20:30 04/11/18 21:00 Temperature 97.6 F Pulse Rate 102 H 110 H 110 H Respiratory Rate 16 20 20 Blood Pressure 113/69 121/79 111/68 Pulse Oximetry 99 98 98 04/11/18 22:00 04/11/18 23:00 04/12/18 00:00 Temperature 97.9 F Pulse Rate 114 H 116 H 114 H Respiratory Rate 21 21 18 Blood Pressure 112/64 124/63 110/62 Pulse Oximetry 96 97 100 04/12/18 01:00 04/12/18 02:00 04/12/18 03:00 Temperature Pulse Rate 107 H 107 H 108 H Respiratory Rate 15 16 17 Blood Pressure 102/57 L 94/59 L 102/53 L Pulse Oximetry 100 100 100 04/12/18 04:00 04/12/18 05:00 04/12/18 06:00 Temperature 98.8 F Pulse Rate 106 H 110 H 107 H Respiratory Rate 18 18 15 Blood Pressure 101/57 L 107/53 L 105/62 Pulse Oximetry 100 100 99 Intake & Output 04/11/18 04/12/18 04/12/18 18:59 06:59 18:59 Intake Total 1000 / 1000 1000 / 1000 Output Total 350 / 350 1475 / 1475 Balance -350 / -350 -475 / -475 1000 / 1000 Weight 90.718 kg 97.5 kg Intake: IV 1000 / 1000 1000 / 1000 NS Inj 1,000 ML @ 150 mls/hr IV 1000 / 1000 1000 / 1000 .CONT .Q6H40M [facility] Rx#:[id number] Output: Emesis 100 / 100 Urine Amount (Catheter) 375 / 375 Indwelling Urethral Catheter 375 / 375 Gastric Drainage 350 / 350 1000 / 1000 Right Nare Nasogastric Tube 350 / 350 1000 / 1000 Other: Date of Last Bowel Movement 04/11/18 # Bowel Movements 1 Weight On Admission 96 kg - Constitutional no acute distress - Routine HEENT Exam Head: Present: normocephalic, atraumatic - Routine Respiratory Exam Absent: accessory muscle use - Routine Cardiovascular Exam Present: irregularly irregular - Routine Abdominal Exam Present: soft, normoactive bowel sounds. Absent: tenderness, distended - Routine Skin Exam Present: dry, warm - Routine Neurological Exam Present: alert. Absent: oriented X3 <Susan Pride - Last Filed: 04/12/18 09:57> Vital signs: Vital Signs 04/11/18 19:00 04/11/18 20:00 04/11/18 20:30 Temperature 97.6 F Pulse Rate 107 H 102 H 110 H Respiratory Rate 16 16 20 Blood Pressure 112/66 113/69 121/79 Pulse Oximetry 98 99 98 04/11/18 21:00 04/11/18 22:00 04/11/18 23:00 Temperature Pulse Rate 110 H 114 H 116 H Respiratory Rate 20 21 21 Blood Pressure 111/68 112/64 124/63 Pulse Oximetry 98 96 97 04/12/18 00:00 04/12/18 01:00 04/12/18 02:00 Temperature 97.9 F Pulse Rate 114 H 107 H 107 H Respiratory Rate 18 15 16 Blood Pressure 110/62 102/57 L 94/59 L Pulse Oximetry 100 100 100 04/12/18 03:00 04/12/18 04:00 04/12/18 05:00 Temperature 98.8 F Pulse Rate 108 H 106 H 110 H Respiratory Rate 17 18 18 Blood Pressure 102/53 L 101/57 L 107/53 L Pulse Oximetry 100 100 100 04/12/18 06:00 04/12/18 08:00 04/12/18 09:00 Temperature 98.0 F Pulse Rate 107 H 113 H 113 H Respiratory Rate 15 21 Blood Pressure 105/62 112/61 Pulse Oximetry 99 100 04/12/18 12:00 04/12/18 16:00 Temperature 98.0 F 97.7 F Pulse Rate 106 H 102 H Respiratory Rate 17 27 H Blood Pressure 108/59 L 106/51 L Pulse Oximetry 98 94 L Intake & Output 04/11/18 04/12/18 04/12/18 18:59 06:59 18:59 Intake Total 1000 / 1000 2806 / 2806 Output Total 350 / 350 1475 / 1475 455 / 455 Balance -350 / -350 -475 / -475 2351 / 2351 Weight 90.718 kg 97.5 kg Intake: IV 1000 / 1000 2721 / 2721 NS Inj 1,000 ML @ 150 mls/hr IV 1000 / 1000 2721 / 2721 .CONT .Q6H40M [facility] Rx#:[id number] Oral 85 / 85 Output: Urine 50 / 50 Emesis 100 / 100 Urine Amount (Catheter) 375 / 375 280 / 280 Indwelling Urethral Catheter 375 / 375 280 / 280 Gastric Drainage 350 / 350 1000 / 1000 125 / 125 Right Nare Nasogastric Tube 350 / 350 1000 / 1000 125 / 125 Other: Date of Last Bowel Movement 04/11/18 04/12/18 # Bowel Movements 1 1 Weight On Admission 96 kg <Mary Hurt - Last Filed: 04/12/18 18:30> Results - Labs CBC & Chem 7: 04/12/18 04:52 04/12/18 04:52 Labs: Laboratory Results - last 24 hr 04/11/18 04/11/18 04/11/18 15:35 15:35 15:35 WBC 19.9 H RBC 5.18 Hgb 14.4 Hct 45.2 MCV 87.4 MCH 27.8 MCHC 31.8 L RDW 18.4 H Plt Count 319 MPV 8.4 Neut % (Auto) 86.7 H Lymph % (Auto) 6.9 L [place] % (Auto) 6.3 Eos % (Auto) 0.0 Baso % (Auto) 0.1 Neut # (Auto) 17.2 H Lymph # (Auto) 1.4 [place] # (Auto) 1.3 H Eos # (Auto) 0.0 Baso # (Auto) 0.0 WBC Differential . Differential Comment Auto diff final APTT Puncture Site Patient Temperature O2 Saturation ABG pH ABG pCO2 ABG pO2 ABG HCO3 ABG O2 Content ABG Base Excess ABG Methemoglobin [place] Test Hemoglobin Carboxyhemoglobin O2 Delivery Device Inspired O2 Critical Value Sodium 134 L Potassium 5.9 H Chloride 101 Carbon Dioxide 22.8 Anion Gap 10 BUN 36 H Creatinine 0.95 Estimated GFR 57 L POC Glucose Random Glucose 143 H Lactic Acid 2.3 H Calcium 8.6 Phosphorus Magnesium Total Bilirubin 0.7 AST 30 ALT 22 Alkaline Phosphatase 91 Total Protein 6.5 Albumin 2.6 L Prealbumin Urine Color Urine Clarity Urine pH Ur Specific [place] Urine Protein Urine Glucose (UA) Urine Ketones Urine Occult Blood Urine Nitrate Urine Bilirubin Urine Urobilinogen Ur Leukocyte Esterase Urine RBC Urine WBC Urine WBC Clumps Urine Bacteria Hyaline Casts Urine Yeast Micro UA Comment Urine Culture Comments Nasal Screen MRSA (PCR) 04/11/18 04/11/18 04/11/18 15:35 17:10 18:43 WBC RBC Hgb Hct MCV MCH MCHC RDW Plt Count MPV Neut % (Auto) Lymph % (Auto) [place] % (Auto) Eos % (Auto) Baso % (Auto) Neut # (Auto) Lymph # (Auto) [place] # (Auto) Eos # (Auto) Baso # (Auto) WBC Differential Differential Comment APTT Puncture Site Right radial Patient Temperature 98.6 O2 Saturation 93 ABG pH 7.46 H ABG pCO2 32 L ABG pO2 75 ABG HCO3 23 ABG O2 Content 15.2 ABG Base Excess -0.8 ABG Methemoglobin 0.6 [place] Test Present Hemoglobin 11.6 L Carboxyhemoglobin 1.4 O2 Delivery Device Nasal cannula Inspired O2 21 Critical Value No Sodium 134 L Potassium 6.4 H Chloride 106 Carbon Dioxide 17.1 L Anion Gap 11 BUN 34 H Creatinine 0.82 Estimated GFR 67 L POC Glucose Random Glucose 115 H Lactic Acid Calcium 8.1 L Phosphorus Magnesium Total Bilirubin AST ALT Alkaline Phosphatase Total Protein Albumin Prealbumin Urine Color Sadie Urine Clarity Cloudy H Urine pH 5.0 Ur Specific [place] 1.018 Urine Protein 30 H Urine Glucose (UA) Negative Urine Ketones Trace H Urine Occult Blood Small H Urine Nitrate Negative Urine Bilirubin Negative Urine Urobilinogen 2.0 H Ur Leukocyte Esterase Moderate H Urine RBC 47 H Urine WBC 87 H Urine WBC Clumps Moderate H Urine Bacteria Few H Hyaline Casts 1 Urine Yeast Moderate H Micro UA Comment Cath-culture ind Urine Culture Comments Cath-cult indicated Nasal Screen MRSA (PCR) 04/11/18 04/11/18 04/11/18 21:00 23:10 23:10 WBC RBC Hgb Hct MCV MCH MCHC RDW Plt Count MPV Neut % (Auto) Lymph % (Auto) [place] % (Auto) Eos % (Auto) Baso % (Auto) Neut # (Auto) Lymph # (Auto) [place] # (Auto) Eos # (Auto) Baso # (Auto) WBC Differential Differential Comment APTT Puncture Site Patient Temperature O2 Saturation ABG pH ABG pCO2 ABG pO2 ABG HCO3 ABG O2 Content ABG Base Excess ABG Methemoglobin [place] Test Hemoglobin Carboxyhemoglobin O2 Delivery Device Inspired O2 Critical Value Sodium 138 Potassium 5.3 H D Chloride 104 Carbon Dioxide 22.8 Anion Gap 11 BUN 34 H Creatinine 0.88 Estimated GFR 62 L POC Glucose Random Glucose 110 H Lactic Acid 3.4 H Calcium 8.6 Phosphorus Magnesium Total Bilirubin AST ALT Alkaline Phosphatase Total Protein Albumin Prealbumin Urine Color Urine Clarity Urine pH Ur Specific [place] Urine Protein Urine Glucose (UA) Urine Ketones Urine Occult Blood Urine Nitrate Urine Bilirubin Urine Urobilinogen Ur Leukocyte Esterase Urine RBC Urine WBC Urine WBC Clumps Urine Bacteria Hyaline Casts Urine Yeast Micro UA Comment Urine Culture Comments Nasal Screen MRSA (PCR) Mrsa detected 04/11/18 04/12/18 04/12/18 23:27 04:52 04:52 WBC 8.5 D RBC 4.77 Hgb 13.4 Hct 42.0 MCV 88.1 MCH 28.0 MCHC 31.8 L RDW 18.4 H Plt Count 241 MPV 8.2 Neut % (Auto) 72.3 H Lymph % (Auto) 16.9 [place] % (Auto) 10.5 H Eos % (Auto) 0.1 Baso % (Auto) 0.2 Neut # (Auto) 6.1 Lymph # (Auto) 1.4 [place] # (Auto) 0.9 Eos # (Auto) 0.0 Baso # (Auto) 0.0 WBC Differential . Differential Comment Auto diff final APTT 29.4 Puncture Site Patient Temperature O2 Saturation ABG pH ABG pCO2 ABG pO2 ABG HCO3 ABG O2 Content ABG Base Excess ABG Methemoglobin [place] Test Hemoglobin Carboxyhemoglobin O2 Delivery Device Inspired O2 Critical Value Sodium Potassium Chloride Carbon Dioxide Anion Gap BUN Creatinine Estimated GFR POC Glucose 97 Random Glucose Lactic Acid Calcium Phosphorus Magnesium Total Bilirubin AST ALT Alkaline Phosphatase Total Protein Albumin Prealbumin Urine Color Urine Clarity Urine pH Ur Specific [place] Urine Protein Urine Glucose (UA) Urine Ketones Urine Occult Blood Urine Nitrate Urine Bilirubin Urine Urobilinogen Ur Leukocyte Esterase Urine RBC Urine WBC Urine WBC Clumps Urine Bacteria Hyaline Casts Urine Yeast Micro UA Comment Urine Culture Comments Nasal Screen MRSA (PCR) 04/12/18 04/12/18 04/12/18 04:52 04:52 05:43 WBC RBC Hgb Hct MCV MCH MCHC RDW Plt Count MPV Neut % (Auto) Lymph % (Auto) [place] % (Auto) Eos % (Auto) Baso % (Auto) Neut # (Auto) Lymph # (Auto) [place] # (Auto) Eos # (Auto) Baso # (Auto) WBC Differential Differential Comment APTT Puncture Site Patient Temperature O2 Saturation ABG pH ABG pCO2 ABG pO2 ABG HCO3 ABG O2 Content ABG Base Excess ABG Methemoglobin [place] Test Hemoglobin Carboxyhemoglobin O2 Delivery Device Inspired O2 Critical Value Sodium 141 Potassium 4.9 Chloride 108 H Carbon Dioxide 23.9 Anion Gap 9 BUN 35 H Creatinine 0.77 Estimated GFR 72 L POC Glucose 88 Random Glucose 93 Lactic Acid 2.0 Calcium 7.7 L D Phosphorus 3.9 Magnesium 2.1 Total Bilirubin 0.6 AST 26 ALT 20 Alkaline Phosphatase 82 Total Protein 5.7 L D Albumin 2.3 L Prealbumin 11 L Urine Color Urine Clarity Urine pH Ur Specific [place] Urine Protein Urine Glucose (UA) Urine Ketones Urine Occult Blood Urine Nitrate Urine Bilirubin Urine Urobilinogen Ur Leukocyte Esterase Urine RBC Urine WBC Urine WBC Clumps Urine Bacteria Hyaline Casts Urine Yeast Micro UA Comment Urine Culture Comments Nasal Screen MRSA (PCR) - Imaging Impressions Abdomen/Pelvis CT 04/11/18 15:12 CONCLUSION: <Susan Pride - Last Filed: 04/12/18 09:57> - Labs CBC & Chem 7: 04/12/18 04:52 04/12/18 04:52 Labs: Laboratory Results - last 24 hr 04/11/18 04/11/18 04/11/18 18:43 21:00 23:10 WBC RBC Hgb Hct MCV MCH MCHC RDW Plt Count MPV Neut % (Auto) Lymph % (Auto) [place] % (Auto) Eos % (Auto) Baso % (Auto) Neut # (Auto) Lymph # (Auto) [place] # (Auto) Eos # (Auto) Baso # (Auto) WBC Differential Differential Comment APTT Puncture Site Right radial Patient Temperature 98.6 O2 Saturation 93 ABG pH 7.46 H ABG pCO2 32 L ABG pO2 75 ABG HCO3 23 ABG O2 Content 15.2 ABG Base Excess -0.8 ABG Methemoglobin 0.6 [place] Test Present Hemoglobin 11.6 L Carboxyhemoglobin 1.4 O2 Delivery Device Nasal cannula Inspired O2 21 Critical Value No Sodium Potassium Chloride Carbon Dioxide Anion Gap BUN Creatinine Estimated GFR POC Glucose Random Glucose Lactic Acid 3.4 H Calcium Phosphorus Magnesium Total Bilirubin AST ALT Alkaline Phosphatase Total Protein Albumin Prealbumin Nasal Screen MRSA (PCR) Mrsa detected 04/11/18 04/11/18 04/12/18 23:10 23:27 04:52 WBC 8.5 D RBC 4.77 Hgb 13.4 Hct 42.0 MCV 88.1 MCH 28.0 MCHC 31.8 L RDW 18.4 H Plt Count 241 MPV 8.2 Neut % (Auto) 72.3 H Lymph % (Auto) 16.9 [place] % (Auto) 10.5 H Eos % (Auto) 0.1 Baso % (Auto) 0.2 Neut # (Auto) 6.1 Lymph # (Auto) 1.4 [place] # (Auto) 0.9 Eos # (Auto) 0.0 Baso # (Auto) 0.0 WBC Differential . Differential Comment Auto diff final APTT Puncture Site Patient Temperature O2 Saturation ABG pH ABG pCO2 ABG pO2 ABG HCO3 ABG O2 Content ABG Base Excess ABG Methemoglobin [place] Test Hemoglobin Carboxyhemoglobin O2 Delivery Device Inspired O2 Critical Value Sodium 138 Potassium 5.3 H D Chloride 104 Carbon Dioxide 22.8 Anion Gap 11 BUN 34 H Creatinine 0.88 Estimated GFR 62 L POC Glucose 97 Random Glucose 110 H Lactic Acid Calcium 8.6 Phosphorus Magnesium Total Bilirubin AST ALT Alkaline Phosphatase Total Protein Albumin Prealbumin Nasal Screen MRSA (PCR) 04/12/18 04/12/18 04/12/18 04:52 04:52 04:52 WBC RBC Hgb Hct MCV MCH MCHC RDW Plt Count MPV Neut % (Auto) Lymph % (Auto) [place] % (Auto) Eos % (Auto) Baso % (Auto) Neut # (Auto) Lymph # (Auto) [place] # (Auto) Eos # (Auto) Baso # (Auto) WBC Differential Differential Comment APTT 29.4 Puncture Site Patient Temperature O2 Saturation ABG pH ABG pCO2 ABG pO2 ABG HCO3 ABG O2 Content ABG Base Excess ABG Methemoglobin [place] Test Hemoglobin Carboxyhemoglobin O2 Delivery Device Inspired O2 Critical Value Sodium 141 Potassium 4.9 Chloride 108 H Carbon Dioxide 23.9 Anion Gap 9 BUN 35 H Creatinine 0.77 Estimated GFR 72 L POC Glucose Random Glucose 93 Lactic Acid 2.0 Calcium 7.7 L D Phosphorus 3.9 Magnesium 2.1 Total Bilirubin 0.6 AST 26 ALT 20 Alkaline Phosphatase 82 Total Protein 5.7 L D Albumin 2.3 L Prealbumin 11 L Nasal Screen MRSA (PCR) 04/12/18 04/12/18 04/12/18 05:43 13:57 17:22 WBC RBC Hgb Hct MCV MCH MCHC RDW Plt Count MPV Neut % (Auto) Lymph % (Auto) [place] % (Auto) Eos % (Auto) Baso % (Auto) Neut # (Auto) Lymph # (Auto) [place] # (Auto) Eos # (Auto) Baso # (Auto) WBC Differential Differential Comment APTT Puncture Site Patient Temperature O2 Saturation ABG pH ABG pCO2 ABG pO2 ABG HCO3 ABG O2 Content ABG Base Excess ABG Methemoglobin [place] Test Hemoglobin Carboxyhemoglobin O2 Delivery Device Inspired O2 Critical Value Sodium Potassium Chloride Carbon Dioxide Anion Gap BUN Creatinine Estimated GFR POC Glucose 88 76 96 Random Glucose Lactic Acid Calcium Phosphorus Magnesium Total Bilirubin AST ALT Alkaline Phosphatase Total Protein Albumin Prealbumin Nasal Screen MRSA (PCR) - Imaging Impressions Abdomen/Pelvis CT 04/11/18 15:12 CONCLUSION: <Mary Hurt - Last Filed: 04/12/18 18:30> Assessment and Plan - Plan Assessment: - N/V/diarrhea- sent from [place]- pt with dementia and unable to provide any history , all history obtained through chart review and discussion with RN- Pt with multiple episodes of emesis yesterday, NG tube placed to LIWS- pt having fecal colored material output. No BM since admission CT abdomen and pelvis W IV contrast --> Dilated bowel with a large amount stool seen throughout the colon. There is also debris in the distal small bowel. The bowel dilatation is likely secondary to fecal impaction. - Electrolyte abnormality- per [facility] Plan: Soap suds enema x 2 Manual disimpaction Mag Citrate x 1 Repeat KUB in AM Continue NG to LIWS Further recommendations to follow Pt has been seen and examined by myself and Dr. Hurt and this note is written on his behalf <Susan Pride - Last Filed: 04/12/18 09:57> - Plan Agree with above note and plan, we will start bowel regimen to see if we can get the fecal impaction resolved, if it does not we may need to consider barium enema or colonoscopy <Mary Hurt - Last Filed: 04/12/18 18:30>
[2018-04-12] MEDS ORDERED: Magnesium Citrate Liq 300 ML Bottle PO ONE (11:30)
[2018-04-13] MEDS: Heparin - SQ 10,000 UNITS/ML Vial SQ SCH ×3 (03:36→20:50)
[2018-04-13] MEDS: Chlorhexidine Gluconate 2% 1 Pack (2 Cloths) TOPICAL SCH (03:38)
[2018-04-13] MEDS: Sod Chloride 0.9% Inj 1,000 ML IV.CONT SCH ×2 (03:38→14:45)
[2018-04-13] MEDS ORDERED: Metoprolol Inj 5 MG/5 ML Vial ONE (04:19)
[2018-04-13] MEDS ORDERED: Metoprolol Inj 5 MG/5 ML Vial IV.PUSH ONE (04:45)
[2018-04-13] MEDS ORDERED: Dextrose 50% in Water Syringe 50 ML ONE (07:03)
--- NOTE | 2018-04-13 09:20 | XR ---
EXAM DATE: 04/13/2018 8:27 AM EDT AGE/SEX: 82 years / Female INDICATIONS: Fecal impaction. Patient with recent nausea and vomiting and abnormal abdomen CT demons trating dilated bowel with large amount of stool in the colon. CLINICAL DATA: This is the patient's initial encounter. Patient reports that signs and symptoms have been present for 3 days and indicates a pain score of 0/10. MEDICAL/SURGICAL HISTORY: . Hypertension. Appendectomy. Gastric bypass. Hysterectomy. ORIF ankl e . COMPARISON: [facility] [place], CT ABDOMEN & PELVIS W CONTRAST, 04/11/2018. . FINDINGS: 2 AP supine views of the abdomen and pelvis were obtained and demonstrate several loops of nondilate d air-containing small bowel in the left midabdomen. Gas and stool is noted segmentally in the colon and no definite distention or evidence to suggest fecal impaction. There is contrast in the dis sav colon. The bony structures demonstrate diffuse osteopenia. Degenerative changes are noted in the lumbar spine and there are multiple compression fracture deformities. Mildly nonspecific bowel gas pattern with no evidence of fecal impaction. Compared to the CT the ellen l gas pattern appears improved. Electronically signed by: Luis Solis MD 04/13/2018 9:19 AM EDT
[2018-04-13 10:34] LABS: Hematocrit 38.4 % (35.0-46.0); Hemoglobin 12.1 gm/dL (11.6-15.3); Mean Corpuscular HGB Conc 31.5 % (32.0-36.0); Mean Corpuscular Hemoglobin 28.4 pg (27.0-34.0); Mean Platelet Volume 8.5 fL (7.0-11.0); Platelet Count 195 th/mm3 (150-450); Red Blood Count 4.27 mil/mm3 (4.00-5.30); White Blood Count 8.7 th/mm3 (4.0-11.0)
[2018-04-13] MEDS: Famotidine PF Inj 20 MG/2 ML Vial IV.PUSH SCH ×2 (10:56→20:49)
[2018-04-13] MEDS: dilTIAZem CD 240 MG Capsule PO SCH (10:57)
[2018-04-13] MEDS: Senna/Docusate Sodium 8.6/50 MG Tablet PO SCH ×2 (10:58→20:34)
[2018-04-13 10:59] LABS: Alanine Aminotransferase 16 U/L (10-53); Albumin 1.4 g/dL (3.4-5.0); Alkaline Phosphatase 72 U/L (45-117); Anion Gap 12 meq/L (5-15); Aspartate Aminotransferase 22 U/L (15-37); Blood Urea Nitrogen 31 mg/dL (7-18); Carbon Dioxide 18.6 meq/L (21.0-32.0); Chloride 112 meq/L (98-107); Glomerular Filtration Rate Greater Than 89 mL/min (>89); Glucose,Random 61 mg/dL (74-106); Potassium 3.2 meq/L (3.5-5.1); Sodium 143 meq/L (136-145); Total Protein 4.3 g/dL (6.4-8.2)
--- NOTE | 2018-04-13 12:13 | ECG ---
Date Performed: 04/13/2018 Time Performed: 04:16:32 PTAGE: 82 years EKG: Atrial fibrillation with rapid ventricular response. Left bundle branch block Low QRS volta ges in precordial leads Abnormal ECG PREVIOUS TRACING 04/12/18 01.24 Since the previous tracing, no significant change noted DOCTOR: Lex Vences Interpretating Date/Time 04/13/2018 12:12:25
[2018-04-13] MEDS ORDERED: Potassium Bicarbonate 25 MEQ Effervescent Tablet PO ONE (15:00)
--- NOTE | 2018-04-13 15:03 | P.PNGI ---
Subjective Interval history: Pt is resting in bed , confused. Per nurse, pt has several BMs last night and today. <Lesa Hilario - Last Filed: 04/13/18 14:49> Interval history: Patient was seen and examined, agree with above note, seems to be moving her bowels and had a fecal impaction resolving, I instructed the nurse to give her 1 bottle of mag citrate to make sure that the colon is completely clean, we will follow-up with you <Mary Hurt - Last Filed: 04/13/18 18:18> Physical Exam Vital signs: Vital Signs 04/12/18 16:00 04/12/18 20:00 04/12/18 21:00 Temperature 97.7 F 97.8 F Pulse Rate 102 H 95 H 95 H Respiratory Rate 27 H 21 16 Blood Pressure 106/51 L 84/49 L 93/51 L Pulse Oximetry 94 L 100 94 L 04/12/18 23:00 04/13/18 00:00 04/13/18 01:00 Temperature 97.4 F L Pulse Rate 96 H 99 H 98 H Respiratory Rate 20 Blood Pressure 126/72 Pulse Oximetry 96 04/13/18 02:00 04/13/18 03:00 04/13/18 04:00 Temperature 97.5 F L Pulse Rate 90 94 H 114 H Respiratory Rate 20 Blood Pressure 112/87 Pulse Oximetry 98 04/13/18 05:00 04/13/18 06:00 04/13/18 08:00 Temperature 96 F L Pulse Rate 120 H 89 101 H Respiratory Rate 12 Blood Pressure 87/57 L Pulse Oximetry 97 04/13/18 12:17 Temperature 96.8 F L Pulse Rate 86 Respiratory Rate 20 Blood Pressure 84/60 L Pulse Oximetry Intake & Output 04/12/18 04/13/18 04/13/18 18:59 06:59 18:59 Intake Total 2806 / 2806 279 / 279 1050 / 1050 Output Total 455 / 455 500 / 500 Balance 2351 / 2351 -221 / -221 1050 / 1050 Weight 97.5 kg Intake: IV 2720 / 1 279 / 279 1050 / 1050 D50W Syringe 50 ML @ 0 mls/hr . 50 / 50 ROUTE .[facility] Rx#:[id number] NS Inj 1,000 ML @ 50 mls/hr IV. 2721 / 2721 279 / 279 1000 / 1000 CONT .Q20H [facility] Rx#:[id number] Oral 85 / 85 Output: Urine 50 / 50 Urine Amount (Catheter) 280 / 280 75 / 75 Indwelling Urethral Catheter 280 / 280 75 / 75 Gastric Drainage 125 / 125 425 / 425 Right Nare Nasogastric Tube 125 / 125 425 / 425 Other: Date of Last Bowel Movement 04/12/18 04/12/18 # Bowel Movements 1 3 # Incontinent Bowel Movements 1 - Constitutional no acute distress - Routine HEENT Exam Head: Present: normocephalic - Routine Neck Exam Present: supple - Routine Respiratory Exam Present: CTA bilaterally - Routine Cardiovascular Exam Present: RRR - Routine Abdominal Exam Present: soft. Absent: tenderness, distended - Detailed Abdominal Exam Bowel sounds: hypoactive - Routine Extremities Exam Present: edema - Routine Skin Exam Present: intact, dry - Routine Neurological Exam Present: alert - Urinary Catheter Management Indwelling Urethral Catheter Cath placed during this visit: yes Reason for continuing: Other continuation reason Insertion date: 04/11/18 Insertion time: 16:00 <Lesa Hilario - Last Filed: 04/13/18 14:49> Vital signs: Vital Signs 04/12/18 20:00 04/12/18 21:00 04/12/18 23:00 Temperature 97.8 F Pulse Rate 95 H 95 H 96 H Respiratory Rate 21 16 Blood Pressure 84/49 L 93/51 L Pulse Oximetry 100 94 L 04/13/18 00:00 04/13/18 01:00 04/13/18 02:00 Temperature 97.4 F L Pulse Rate 99 H 98 H 90 Respiratory Rate 20 Blood Pressure 126/72 Pulse Oximetry 96 04/13/18 03:00 04/13/18 04:00 04/13/18 05:00 Temperature 97.5 F L Pulse Rate 94 H 114 H 120 H Respiratory Rate 20 Blood Pressure 112/87 Pulse Oximetry 98 04/13/18 06:00 04/13/18 08:00 04/13/18 09:00 Temperature 96 F L Pulse Rate 89 82 88 Respiratory Rate 12 Blood Pressure 87/57 L Pulse Oximetry 97 04/13/18 10:00 04/13/18 11:00 04/13/18 12:00 Temperature Pulse Rate 94 H 100 H 62 Respiratory Rate Blood Pressure Pulse Oximetry 04/13/18 12:17 04/13/18 13:00 04/13/18 15:00 Temperature 96.8 F L Pulse Rate 86 64 102 H Respiratory Rate 20 Blood Pressure 84/60 L Pulse Oximetry 04/13/18 15:30 04/13/18 16:00 04/13/18 17:00 Temperature 96.9 F L Pulse Rate 93 H 84 86 Respiratory Rate 12 Blood Pressure 99/55 L Pulse Oximetry Intake & Output 04/12/18 04/13/18 04/13/18 18:59 06:59 18:59 Intake Total 2806 / 2806 279 / 279 1050 / 1050 Output Total 455 / 455 500 / 500 Balance 2351 / 2351 -221 / -221 1050 / 1050 Weight 97.5 kg Intake: IV 2721 / 2721 279 / 279 1050 / 1050 D50W Syringe 50 ML @ 0 mls/hr . 50 / 50 ROUTE .[facility] Rx#:[id number] NS Inj 1,000 ML @ 50 mls/hr IV. 2721 / 2721 279 / 279 1000 / 1000 CONT .Q20H [facility] Rx#:[id number] Oral 85 / 85 Output: Urine 50 / 50 Urine Amount (Catheter) 280 / 280 75 / 75 Indwelling Urethral Catheter 280 / 280 75 / 75 Gastric Drainage 125 / 125 425 / 425 Right Nare Nasogastric Tube 125 / 125 425 / 425 Other: Date of Last Bowel Movement 04/12/18 04/12/18 # Bowel Movements 1 3 # Incontinent Bowel Movements 1 - Urinary Catheter Management Indwelling Urethral Catheter Cath placed during this visit: no <Mary Hurt - Last Filed: 04/13/18 18:18> Results - Labs CBC & Chem 7: 04/13/18 10:05 04/13/18 10:05 Laboratory Results - last 24 hr 04/12/18 04/13/18 04/13/18 17:22 06:56 07:34 WBC RBC Hgb Hct MCV MCH MCHC RDW Plt Count MPV Sodium Potassium Chloride Carbon Dioxide Anion Gap BUN Creatinine Estimated GFR POC Glucose 96 55 L 97 Random Glucose Calcium Prot Corrected Calcium Total Bilirubin AST ALT Alkaline Phosphatase Total Protein Albumin 04/13/18 04/13/18 04/13/18 07:55 10:05 10:05 WBC 8.7 RBC 4.27 Hgb 12.1 Hct 38.4 MCV 90.0 MCH 28.4 MCHC 31.5 L RDW 19.0 H Plt Count 195 MPV 8.5 Sodium 143 Potassium 3.2 L D Chloride 112 H Carbon Dioxide 18.6 L Anion Gap 12 BUN 31 H Creatinine 0.58 Estimated GFR Greater than 89 POC Glucose 125 H Random Glucose 61 L Calcium 7.0 L* Prot Corrected Calcium 8.5 Total Bilirubin 0.3 AST 22 ALT 16 Alkaline Phosphatase 72 Total Protein 4.3 L D Albumin 1.4 L D Microbiology 04/11/18 15:35 Catheterized Urine Urine Culture - Preliminary Yeast - ID to follow 04/11/18 15:30 Blood - Peripheral Aerobic Blood Culture - Preliminary No growth in 2 days 04/11/18 15:30 Blood - Peripheral Anaerobic Blood Culture - Preliminary No growth in 2 days 04/11/18 15:35 Blood - Peripheral Aerobic Blood Culture - Preliminary No growth in 2 days 04/11/18 15:35 Blood - Peripheral Anaerobic Blood Culture - Preliminary No growth in 2 days - Imaging Impressions Abdomen X-Ray 04/13/18 08:00 CONCLUSION: <[email or web address] - Last Filed: 04/13/18 14:49> - Labs CBC & Chem 7: 04/13/18 10:05 04/13/18 10:05 Laboratory Results - last 24 hr 04/13/18 04/13/18 04/13/18 06:56 07:34 07:55 WBC RBC Hgb Hct MCV MCH MCHC RDW Plt Count MPV Sodium Potassium Chloride Carbon Dioxide Anion Gap BUN Creatinine Estimated GFR POC Glucose 55 L 97 125 H Random Glucose Calcium Prot Corrected Calcium Total Bilirubin AST ALT Alkaline Phosphatase Total Protein Albumin 04/13/18 04/13/18 10:05 10:05 WBC 8.7 RBC 4.27 Hgb 12.1 Hct 38.4 MCV 90.0 MCH 28.4 MCHC 31.5 L RDW 19.0 H Plt Count 195 MPV 8.5 Sodium 143 Potassium 3.2 L D Chloride 112 H Carbon Dioxide 18.6 L Anion Gap 12 BUN 31 H Creatinine 0.58 Estimated GFR Greater than 89 POC Glucose Random Glucose 61 L Calcium 7.0 L* Prot Corrected Calcium 8.5 Total Bilirubin 0.3 AST 22 ALT 16 Alkaline Phosphatase 72 Total Protein 4.3 L D Albumin 1.4 L D Microbiology 04/11/18 15:35 Catheterized Urine Urine Culture - Preliminary Yeast - ID to follow 04/11/18 15:30 Blood - Peripheral Aerobic Blood Culture - Preliminary No growth in 2 days 04/11/18 15:30 Blood - Peripheral Anaerobic Blood Culture - Preliminary No growth in 2 days 04/11/18 15:35 Blood - Peripheral Aerobic Blood Culture - Preliminary No growth in 2 days 04/11/18 15:35 Blood - Peripheral Anaerobic Blood Culture - Preliminary No growth in 2 days - Imaging Impressions Abdomen X-Ray 04/13/18 08:00 CONCLUSION: <Mary Hurt - Last Filed: 04/13/18 18:18> Assessment and Plan - Plan - N/V/fecal impaction - Improving. sent from [place]- pt with dementia and unable to provide any history s/p bowel regimen, pt had several BMs last night and today, still has NGT to LIWS with gastric Out put Abd X-ray on 04/13/18 mildly nonspecific bowel gas pattern with no evidence of fecal impaction. Compared to the CT of the bowel gas pattern appear improved CT abdomen and pelvis W IV contrast --> Dilated bowel with a large amount stool seen throughout the colon. There is also debris in the distal small bowel. The bowel dilatation is likely secondary to fecal impaction. - Electrolyte abnormality- per [facility] Plan: - Continue NG to LIWS - cont bowel regimen - KUB in the am if this cont. to improve, might start liquids Further recommendations to follow Pt has been seen and examined by myself and Dr. Hurt and this note is written on his behalf <Lesa Hilario - Last Filed: 04/13/18 14:49>
--- NOTE | 2018-04-13 15:28 | P.PN ---
Physical Exam Vital signs: Vital Signs 04/12/18 16:00 04/12/18 20:00 04/12/18 21:00 Temperature 97.7 F 97.8 F Pulse Rate 102 H 95 H 95 H Respiratory Rate 27 H 21 16 Blood Pressure 106/51 L 84/49 L 93/51 L Pulse Oximetry 94 L 100 94 L 04/12/18 23:00 04/13/18 00:00 04/13/18 01:00 Temperature 97.4 F L Pulse Rate 96 H 99 H 98 H Respiratory Rate 20 Blood Pressure 126/72 Pulse Oximetry 96 04/13/18 02:00 04/13/18 03:00 04/13/18 04:00 Temperature 97.5 F L Pulse Rate 90 94 H 114 H Respiratory Rate 20 Blood Pressure 112/87 Pulse Oximetry 98 04/13/18 05:00 04/13/18 06:00 04/13/18 08:00 Temperature 96 F L Pulse Rate 120 H 89 101 H Respiratory Rate 12 Blood Pressure 87/57 L Pulse Oximetry 97 04/13/18 12:17 Temperature 96.8 F L Pulse Rate 86 Respiratory Rate 20 Blood Pressure 84/60 L Pulse Oximetry Intake & Output 04/12/18 04/13/18 04/13/18 18:59 06:59 18:59 Intake Total 2806 / 2806 279 / 279 1050 / 1050 Output Total 455 / 455 500 / 500 Balance 2351 / 2351 -221 / -221 1050 / 1050 Weight 97.5 kg Intake: IV 2721 / 2721 279 / 279 1050 / 1050 D50W Syringe 50 ML @ 0 mls/hr . 50 / 50 ROUTE .[facility] Rx#:[id number] NS Inj 1,000 ML @ 50 mls/hr IV. 2721 / 2721 279 / 279 1000 / 1000 CONT .Q20H [facility] Rx#:[id number] Oral 85 / 85 Output: Urine 50 / 50 Urine Amount (Catheter) 280 / 280 75 / 75 Indwelling Urethral Catheter 280 / 280 75 / 75 Gastric Drainage 125 / 125 425 / 425 Right Nare Nasogastric Tube 125 / 125 425 / 425 Other: Date of Last Bowel Movement 04/12/18 04/12/18 # Bowel Movements 1 3 # Incontinent Bowel Movements 1 Narrative: Subjective Subjective Remarks/Hospital Course: 82-year-old female with past medical history of atrial fibrillation, hypertension, dyslipidemia and some dementia presents with nausea/Vomiting/ Diarrhea and altered mental status. The patient is able to provide answers to simple questions however is unable to specify when and how her symptoms started. In the emergency department she was found to have a potassium above 5 with repeat 6.4 and is therefore admitted to ICU telemetry. 04/12: Patient is lying in bed oriented 2. NG tube in place with feculent appearing material. CT abdomen pelvis showed fecal impaction and dilated colon. GI consult requested for further evaluation. Fleets enema and Dulcolax suppository ordered. Potassium is 4.9 today. 04/13/18 the patient is in bed she appears chronically ill. She is sleeping however she is arousable. Opens her eyes and she is asking for water. Patient is n.p.o. at this time but she can have ice chips. Patient is mostly nonverbal does not follow much commands. No nausea or vomiting. Does not eat much. Physical exam GENERAL: Elderly female, pleasantly demented. She is in bed appears chronically ill. NG tube in place on suction. SKIN: Multiple pressure wounds present on admission. HEAD: Normocephalic. EYES: No scleral icterus. No injection or drainage. NECK: Supple, trachea midline. No JVD or lymphadenopathy. CARDIOVASCULAR: Regular rate and rhythm without murmurs, gallops, or rubs. RESPIRATORY: Breath sounds equal bilaterally. No accessory muscle use. GASTROINTESTINAL: Abdomen soft, non-tender, nondistended. MUSCULOSKELETAL: No cyanosis, or edema. BACK: Nontender without obvious deformity. No CVA tenderness. Assessment and Plan - Assessment and Plan Plan: Hyperkalemia -Hold potassium supplement -IV hydration, reduce IVF to 50 ml per hour due to pedal edema -s/p Kayexalate -Monitor trend, K 4.9 today -Series of EKGs and telemetry Nausea vomiting -CT abdomen shows only constipation -As needed Zofran -Duration -Laxatives, Fleet Enema -GI consulted for feculent appearing material from NG tube Atrial fibrillation -Diltiazem Probable Dementia -Monitor neuro status closely Buttocks wounds, present on admission. Per daughter at bedside, and care follows as outpatient. Consult wound care. DVT GI prophylaxis -Teds SCDs -Subcu heparin -Pepcid Because with the patient, nurse, patient's daughter at bedside. Note the patient was to snf facility then she went to her daughter' s home. The daughter very pleasant at bedside. Per daughter patient is to go to snf facility after discharge. - Urinary Catheter Management Indwelling Urethral Catheter Cath placed during this visit: yes Reason for continuing: Other continuation reason Insertion date: 04/11/18 Insertion time: 16:00 Results - Labs CBC & Chem 7: 04/13/18 10:05 04/13/18 10:05 Laboratory Results - last 24 hr 04/12/18 04/13/18 04/13/18 17:22 06:56 07:34 WBC RBC Hgb Hct MCV MCH MCHC RDW Plt Count MPV Sodium Potassium Chloride Carbon Dioxide Anion Gap BUN Creatinine Estimated GFR POC Glucose 96 55 L 97 Random Glucose Calcium Prot Corrected Calcium Total Bilirubin AST ALT Alkaline Phosphatase Total Protein Albumin 04/13/18 04/13/18 04/13/18 07:55 10:05 10:05 WBC 8.7 RBC 4.27 Hgb 12.1 Hct 38.4 MCV 90.0 MCH 28.4 MCHC 31.5 L RDW 19.0 H Plt Count 195 MPV 8.5 Sodium 143 Potassium 3.2 L D Chloride 112 H Carbon Dioxide 18.6 L Anion Gap 12 BUN 31 H Creatinine 0.58 Estimated GFR Greater than 89 POC Glucose 125 H Random Glucose 61 L Calcium 7.0 L* Prot Corrected Calcium 8.5 Total Bilirubin 0.3 AST 22 ALT 16 Alkaline Phosphatase 72 Total Protein 4.3 L D Albumin 1.4 L D Microbiology 04/11/18 15:35 Catheterized Urine Urine Culture - Preliminary Yeast - ID to follow 04/11/18 15:30 Blood - Peripheral Aerobic Blood Culture - Preliminary No growth in 2 days 04/11/18 15:30 Blood - Peripheral Anaerobic Blood Culture - Preliminary No growth in 2 days 04/11/18 15:35 Blood - Peripheral Aerobic Blood Culture - Preliminary No growth in 2 days 04/11/18 15:35 Blood - Peripheral Anaerobic Blood Culture - Preliminary No growth in 2 days - Imaging Impressions Abdomen X-Ray 04/13/18 08:00 CONCLUSION:
[2018-04-13] MEDS ORDERED: Magnesium Citrate Liq 300 ML Bottle NG/OG ONE (19:00)
[2018-04-13] MEDS: Dextrose 50% in Water 50 ML Vial IV.PUSH PRN ×2 (20:49→22:31)
[2018-04-14] MEDS: Heparin - SQ 10,000 UNITS/ML Vial SQ SCH ×3 (04:21→21:06)
[2018-04-14] MEDS: Sod Chloride 0.9% Inj 1,000 ML IV.CONT SCH ×2 (05:22→20:37)
[2018-04-14] MEDS: Chlorhexidine Gluconate 2% 1 Pack (2 Cloths) TOPICAL SCH (05:22)
--- NOTE | 2018-04-14 06:15 | XR ---
EXAM DATE: 04/14/2018 5:43 AM EDT AGE/SEX: 82 years / Female INDICATIONS: Abdominal pain. CLINICAL DATA: This is the patient's subsequent encounter. Patient reports that signs and symptoms h ave been present for 2 days and indicates a pain score of 0/10. MEDICAL/SURGICAL HISTORY: Hypertension. . Appendectomy. Gastric bypass. Hysterectomy. ORIF ank le . [place] [facility] [place]13/[place]. . FINDINGS: Redemonstration of several loops of air-filled nondistended small bowel in the upper abdomen, slight ly improved from prior exam. Air is seen in the rectum. No gross free air. Remainder of the exam is u nchanged. CONCLUSION: 1. Findings most consistent with improving mild adynamic ileus pattern. Electronically signed by: Todd Young MD 04/14/2018 6:13 AM EDT
--- NOTE | 2018-04-14 09:19 | P.PNGI ---
Subjective Interval history: Pt is resting in bed, NGT to LIWS, not much output, no abd pain, Pt had multiple stools last night. Physical Exam Vital signs: Vital Signs 04/13/18 10:00 04/13/18 11:00 04/13/18 12:00 Temperature Pulse Rate 94 H 100 H 62 Respiratory Rate 12 Blood Pressure Pulse Oximetry 04/13/18 12:17 04/13/18 13:00 04/13/18 15:00 Temperature 96.8 F L Pulse Rate 86 64 102 H Respiratory Rate 20 Blood Pressure 84/60 L Pulse Oximetry 04/13/18 15:30 04/13/18 16:00 04/13/18 17:00 Temperature 96.9 F L Pulse Rate 93 H 84 86 Respiratory Rate 12 12 Blood Pressure 99/55 L Pulse Oximetry 04/13/18 20:00 04/13/18 22:03 04/13/18 23:00 Temperature 97.6 F Pulse Rate 100 H 78 74 Respiratory Rate 18 Blood Pressure 106/79 Pulse Oximetry 96 04/14/18 00:00 04/14/18 01:00 04/14/18 02:00 Temperature 98.2 F Pulse Rate 78 78 85 Respiratory Rate 18 Blood Pressure 87/60 L Pulse Oximetry 96 04/14/18 03:00 04/14/18 04:00 04/14/18 05:00 Temperature 97.5 F L Pulse Rate 90 80 90 Respiratory Rate 20 Blood Pressure 89/67 L Pulse Oximetry 04/14/18 06:00 Temperature Pulse Rate 78 Respiratory Rate Blood Pressure Pulse Oximetry Intake & Output 04/13/18 04/14/18 04/14/18 18:59 06:59 18:59 Intake Total 1050 / 1050 15 / 15 Output Total 50 / 50 Balance 1050 / 1050 -35 / -35 Weight 97 kg Intake: IV 1050 / 1050 D50W Syringe 50 ML @ 0 mls/hr . 50 / 50 ROUTE .[facility] Rx#:[id number] NS Inj 1,000 ML @ 50 mls/hr IV. 1000 / 1000 CONT .Q20H [facility] Rx#:[id number] Oral 15 / 15 Output: Gastric Drainage 50 / 50 Right Nare Nasogastric Tube 50 / 50 Other: # Voids 4 # Incontinent Voids 2 4 Date of Last Bowel Movement 04/14/18 # Bowel Movements 4 # Incontinent Bowel Movements 2 4 - Constitutional no acute distress - Routine HEENT Exam Head: Present: normocephalic - Routine Neck Exam Present: supple - Routine Respiratory Exam Present: CTA bilaterally - Routine Cardiovascular Exam Present: RRR - Routine Abdominal Exam Present: soft, normoactive bowel sounds. Absent: tenderness, distended - Routine Extremities Exam Present: edema - Routine Skin Exam Present: intact, dry. Absent: jaundice - Routine Neurological Exam Present: alert - Urinary Catheter Management Indwelling Urethral Catheter Cath placed during this visit: yes Reason for continuing: Other continuation reason Insertion date: 04/11/18 Insertion time: 16:00 Results - Labs CBC & Chem 7: 04/13/18 10:05 04/13/18 10:05 Laboratory Results - last 24 hr 04/13/18 04/13/18 04/13/18 10:05 10:05 20:07 WBC 8.7 RBC 4.27 Hgb 12.1 Hct 38.4 MCV 90.0 MCH 28.4 MCHC 31.5 L RDW 19.0 H Plt Count 195 MPV 8.5 Sodium 143 Potassium 3.2 L D Chloride 112 H Carbon Dioxide 18.6 L Anion Gap 12 BUN 31 H Creatinine 0.58 Estimated GFR Greater than 89 POC Glucose 62 L Random Glucose 61 L Calcium 7.0 L* Prot Corrected Calcium 8.5 Total Bilirubin 0.3 AST 22 ALT 16 Alkaline Phosphatase 72 Total Protein 4.3 L D Albumin 1.4 L D 04/13/18 04/13/18 04/13/18 21:29 23:15 23:57 WBC RBC Hgb Hct MCV MCH MCHC RDW Plt Count MPV Sodium Potassium Chloride Carbon Dioxide Anion Gap BUN Creatinine Estimated GFR POC Glucose 90 87 136 H Random Glucose Calcium Prot Corrected Calcium Total Bilirubin AST ALT Alkaline Phosphatase Total Protein Albumin 04/14/18 05:38 WBC RBC Hgb Hct MCV MCH MCHC RDW Plt Count MPV Sodium Potassium Chloride Carbon Dioxide Anion Gap BUN Creatinine Estimated GFR POC Glucose 122 H Random Glucose Calcium Prot Corrected Calcium Total Bilirubin AST ALT Alkaline Phosphatase Total Protein Albumin Microbiology 04/11/18 15:35 Catheterized Urine Urine Culture - Preliminary Yeast - ID to follow 04/11/18 15:30 Blood - Peripheral Aerobic Blood Culture - Preliminary No growth in 2 days 04/11/18 15:30 Blood - Peripheral Anaerobic Blood Culture - Preliminary No growth in 2 days 04/11/18 15:35 Blood - Peripheral Aerobic Blood Culture - Preliminary No growth in 2 days 04/11/18 15:35 Blood - Peripheral Anaerobic Blood Culture - Preliminary No growth in 2 days - Imaging Impressions Abdomen X-Ray 04/13/18 08:00 CONCLUSION: Abdomen X-Ray 04/14/18 06:00 CONCLUSION: 1. Findings most consistent with improving mild adynamic ileus pattern. Assessment and Plan - Plan - N/V/fecal impaction - Resolved. sent from [place]- pt with dementia and unable to provide any history Pt continue to improve, pt had several BMs last night, still has NGT to LIWS with minimal gastric Out put Abdomen X-Ray 04/14/18 06:00 Findings most consistent with improving mild adynamic ileus pattern. Abd X-ray on 04/13/18 mildly nonspecific bowel gas pattern with no evidence of fecal impaction. Compared to the CT of the bowel gas pattern appear improved CT abdomen and pelvis W IV contrast --> Dilated bowel with a large amount stool seen throughout the colon. There is also debris in the distal small bowel. The bowel dilatation is likely secondary to fecal impaction. - Electrolyte abnormality- per [facility] Plan: - DC NGT - Full liquid diet, advance as tolerated - Cont. bowel regimen - Gi will sign off Pt has been seen and examined by myself and Dr. Henriquez and this note is written on his behalf
[2018-04-14] MEDS: dilTIAZem CD 240 MG Capsule PO SCH (09:31)
[2018-04-14] MEDS: Famotidine PF Inj 20 MG/2 ML Vial IV.PUSH SCH (09:31)
--- NOTE | 2018-04-14 09:50 | P.PN ---
Physical Exam Vital signs: Vital Signs 04/13/18 10:00 04/13/18 11:00 04/13/18 12:00 Temperature Pulse Rate 94 H 100 H 62 Respiratory Rate 12 Blood Pressure Pulse Oximetry 04/13/18 12:17 04/13/18 13:00 04/13/18 15:00 Temperature 96.8 F L Pulse Rate 86 64 102 H Respiratory Rate 20 Blood Pressure 84/60 L Pulse Oximetry 04/13/18 15:30 04/13/18 16:00 04/13/18 17:00 Temperature 96.9 F L Pulse Rate 93 H 84 86 Respiratory Rate 12 12 Blood Pressure 99/55 L Pulse Oximetry 04/13/18 20:00 04/13/18 22:03 04/13/18 23:00 Temperature 97.6 F Pulse Rate 100 H 78 74 Respiratory Rate 18 Blood Pressure 106/79 Pulse Oximetry 96 04/14/18 00:00 04/14/18 01:00 04/14/18 02:00 Temperature 98.2 F Pulse Rate 78 78 85 Respiratory Rate 18 Blood Pressure 87/60 L Pulse Oximetry 96 04/14/18 03:00 04/14/18 04:00 04/14/18 05:00 Temperature 97.5 F L Pulse Rate 90 80 90 Respiratory Rate 20 Blood Pressure 89/67 L Pulse Oximetry 04/14/18 06:00 Temperature Pulse Rate 78 Respiratory Rate Blood Pressure Pulse Oximetry Intake & Output 04/13/18 04/14/18 04/14/18 18:59 06:59 18:59 Intake Total 1050 / 1050 15 / 15 Output Total 50 / 50 Balance 1050 / 1050 -35 / -35 Weight 97 kg Intake: IV 1050 / 1050 [id number] Syringe 50 ML @ 0 mls/hr . 50 / 50 ROUTE .[facility] Rx#:[id number] NS Inj 1,000 ML @ 50 mls/hr IV. 1000 / 1000 CONT .Q20H [facility] Rx#:[id number] Oral 15 / 15 Output: Gastric Drainage 50 / 50 Right Nare Nasogastric Tube 50 / 50 Other: # Voids 4 # Incontinent Voids 2 4 Date of Last Bowel Movement 04/14/18 # Bowel Movements 4 # Incontinent Bowel Movements 2 4 Narrative: Subjective Subjective Remarks/Hospital Course: 82-year-old female with past medical history of atrial fibrillation, hypertension, dyslipidemia and some dementia presents with nausea/Vomiting/ Diarrhea and altered mental status. The patient is able to provide answers to simple questions however is unable to specify when and how her symptoms started. In the emergency department she was found to have a potassium above 5 with repeat 6.4 and is therefore admitted to ICU telemetry. 04/12: Patient is lying in bed oriented 2. NG tube in place with feculent appearing material. CT abdomen pelvis showed fecal impaction and dilated colon. GI consult requested for further evaluation. Fleets enema and Dulcolax suppository ordered. Potassium is 4.9 today. 04/13/18 the patient is in bed she appears chronically ill. She is sleeping however she is arousable. Opens her eyes and she is asking for water. Patient is n.p.o. at this time but she can have ice chips. Patient is mostly nonverbal does not follow much commands. No nausea or vomiting. Does not eat much. 04/14/18 the patient is asking for popsicles. She is tolerated clears. She is pleasantly confused. Agitated on and off. Restraints are off. More awake and alert. Says she does not have any chest pain no abdominal pain. No fever or chills. Physical exam GENERAL: Elderly female, pleasantly demented. She is in bed appears chronically ill. NG tube in place on suction. SKIN: Multiple pressure wounds present on admission. CARDIOVASCULAR: Regular rate and rhythm without murmurs, gallops, or rubs. RESPIRATORY: Breath sounds equal bilaterally. No accessory muscle use. GASTROINTESTINAL: Abdomen soft, non-tender, nondistended. MUSCULOSKELETAL: No cyanosis, or edema. BACK: Nontender without obvious deformity. No CVA tenderness. Assessment and Plan - Assessment and Plan Plan: Hyperkalemia -Hold potassium supplement -IV hydration, reduce IVF to 50 ml per hour due to pedal edema -s/p Kayexalate -Monitor trend, K 4.9 today -Series of EKGs and telemetry Nausea vomiting -CT abdomen shows only constipation -As needed Zofran -Duration -Laxatives, Fleet Enema -GI consulted for feculent appearing material from NG tube Atrial fibrillation -Diltiazem Probable Dementia -Monitor neuro status closely multiple pressure wounds. Buttocks wounds, all wounds present on admission. Per daughter wound care follows as outpatient. Consult wound care. Change dressings as need DVT GI prophylaxis -Teds SCDs -Subcu heparin -Pepcid Discussed with the patient, nurse, patient's daughter at bedside. Note the [facility] then she went to her daughter' s home. The daughter is very pleasant and involved in care . Per daughter patient is to [facility] facility [facility]. DC to SNF when improves and able to tolerate food. - Urinary Catheter Management Indwelling Urethral Catheter Cath placed during this visit: yes Reason for continuing: Other continuation reason Insertion date: 04/11/18 Insertion time: 16:00 Results - Labs CBC & Chem 7: 04/13/18 10:05 04/13/18 10:05 Laboratory Results - last 24 hr 04/13/18 04/13/18 04/13/18 10:05 10:05 20:07 WBC 8.7 RBC 4.27 Hgb 12.1 Hct 38.4 MCV 90.0 MCH 28.4 MCHC 31.5 L RDW 19.0 H Plt Count 195 MPV 8.5 Sodium 143 Potassium 3.2 L D Chloride 112 H Carbon Dioxide 18.6 L Anion Gap 12 BUN 31 H Creatinine 0.58 Estimated GFR Greater than 89 POC Glucose 62 L Random Glucose 61 L Calcium 7.0 L* Prot Corrected Calcium 8.5 Total Bilirubin 0.3 AST 22 ALT 16 Alkaline Phosphatase 72 Total Protein 4.3 L D Albumin 1.4 L D 04/13/18 04/13/18 04/13/18 21:29 23:15 23:57 WBC RBC Hgb Hct MCV MCH MCHC RDW Plt Count MPV Sodium Potassium Chloride Carbon Dioxide Anion Gap BUN Creatinine Estimated GFR POC Glucose 90 87 136 H Random Glucose Calcium Prot Corrected Calcium Total Bilirubin AST ALT Alkaline Phosphatase Total Protein Albumin 04/14/18 05:38 WBC RBC Hgb Hct MCV MCH MCHC RDW Plt Count MPV Sodium Potassium Chloride Carbon Dioxide Anion Gap BUN Creatinine Estimated GFR POC Glucose 122 H Random Glucose Calcium Prot Corrected Calcium Total Bilirubin AST ALT Alkaline Phosphatase Total Protein Albumin Microbiology 04/11/18 15:35 Catheterized Urine Urine Culture - Preliminary Yeast - ID to follow 04/11/18 15:30 Blood - Peripheral Aerobic Blood Culture - Preliminary No growth in 2 days 04/11/18 15:30 Blood - Peripheral Anaerobic Blood Culture - Preliminary No growth in 2 days 04/11/18 15:35 Blood - Peripheral Aerobic Blood Culture - Preliminary No growth in 2 days 04/11/18 15:35 Blood - Peripheral Anaerobic Blood Culture - Preliminary No growth in 2 days - Imaging Impressions Abdomen X-Ray 04/14/18 06:00 CONCLUSION: 1. Findings most consistent with improving mild adynamic ileus pattern.
[2018-04-14] MEDS: Senna/Docusate Sodium 8.6/50 MG Tablet PO SCH ×2 (16:13→21:06)
[2018-04-14] MEDS: Famotidine 20 MG Tablet PO SCH (21:06)
[2018-04-15] MEDS: Heparin - SQ 10,000 UNITS/ML Vial SQ SCH ×3 (04:10→19:57)
[2018-04-15] MEDS: Chlorhexidine Gluconate 2% 1 Pack (2 Cloths) TOPICAL SCH (05:54)
[2018-04-15] MEDS: Senna/Docusate Sodium 8.6/50 MG Tablet PO SCH ×2 (08:49→20:02)
[2018-04-15] MEDS: Famotidine 20 MG Tablet PO SCH ×2 (09:57→20:01)
[2018-04-15] MEDS: dilTIAZem CD 240 MG Capsule PO SCH (13:54)
--- NOTE | 2018-04-15 15:23 | P.PNIM ---
Subjective Interval history: 82-year-old female with past medical history of atrial fibrillation, hypertension, dyslipidemia and some dementia presents with nausea/Vomiting/ Diarrhea and altered mental status. The patient is able to provide answers to simple questions however is unable to specify when and how her symptoms started. In the emergency department she was found to have a potassium above 5 with repeat 6.4 and is therefore admitted to ICU telemetry. 04/12: Patient is lying in bed oriented 2. NG tube in place with feculent appearing material. CT abdomen pelvis showed fecal impaction and dilated colon. GI consult requested for further evaluation. Fleets enema and Dulcolax suppository ordered. Potassium is 4.9 today. 04/13/18 the patient is in bed she appears chronically ill. She is sleeping however she is arousable. Opens her eyes and she is asking for water. Patient is n.p.o. at this time but she can have ice chips. Patient is mostly nonverbal does not follow much commands. No nausea or vomiting. Does not eat much. 04/14/18 the patient is asking for popsicles. She is tolerated clears. She is pleasantly confused. Agitated on and off. Restraints are off. More awake and alert. Says she does not have any chest pain no abdominal pain. No fever or chills. 04-15 PATIENT NOTED TO BE POSITIVE FOR C.DIFFICILE COLITIS WILL START ON VANCO 250MG PO Q6 HR WILL NEED TREATMENT FOR AT LEAST 28 DAYS CAN TRANSFER OFF OF [facility] RN AND PT AND CM AM LABS REMAINS OUT OF RESTRAINTS Physical Exam Vital signs: Vital Signs 04/14/18 16:00 04/14/18 17:00 04/14/18 18:00 Temperature 98.2 F Pulse Rate 56 L 96 H 65 Respiratory Rate 16 Blood Pressure 107/43 L Pulse Oximetry 98 04/14/18 19:00 04/14/18 20:00 04/14/18 21:00 Temperature 97.1 F L Pulse Rate 107 H 46 L 64 Respiratory Rate 18 Blood Pressure 120/49 L Pulse Oximetry 94 L 04/14/18 22:00 04/14/18 23:00 04/15/18 00:00 Temperature 97.8 F Pulse Rate 68 79 76 Respiratory Rate 18 Blood Pressure 116/58 L Pulse Oximetry 99 04/15/18 01:00 04/15/18 02:00 04/15/18 03:00 Temperature Pulse Rate 76 72 76 Respiratory Rate Blood Pressure Pulse Oximetry 04/15/18 04:00 04/15/18 05:00 04/15/18 06:00 Temperature 97.5 F L Pulse Rate 76 68 77 Respiratory Rate 16 Blood Pressure 98/37 L Pulse Oximetry 99 04/15/18 07:00 04/15/18 08:00 04/15/18 09:00 Temperature 97.7 F Pulse Rate 68 74 70 Respiratory Rate 18 Blood Pressure 86/41 L Pulse Oximetry 98 04/15/18 09:57 04/15/18 10:00 04/15/18 11:00 Temperature Pulse Rate 86 90 67 Respiratory Rate Blood Pressure 104/61 Pulse Oximetry 04/15/18 12:00 04/15/18 13:00 04/15/18 14:00 Temperature Pulse Rate 74 70 102 H Respiratory Rate 18 Blood Pressure 111/53 L Pulse Oximetry 98 04/15/18 15:00 Temperature Pulse Rate 84 Respiratory Rate Blood Pressure Pulse Oximetry Intake & Output 04/14/18 04/15/18 04/15/18 18:59 06:59 18:59 Intake Total 720 / 720 Balance 720 / 720 Weight 99.2 kg Intake: Oral 720 / 720 Other: # Voids 3 Date of Last Bowel Movement 04/14/18 04/15/18 # Bowel Movements 4 6 Narrative: GENERAL: Awake and alert talkative and cooperative quite confused --appears to be at baseline--confused at baseline SKIN: Warm and dry. Pressure ulcer/sacral ulcer decubitus HEAD: Atraumatic. Normocephalic. EYES: Pupils equal and round. No scleral icterus. No injection or drainage. ENT: No nasal bleeding or discharge. Mucous membranes pink and moist. NECK: Trachea midline. No JVD. CARDIOVASCULAR: IRRegular rate and rhythm. S1-S2 no S3 or S4 RESPIRATORY: No accessory muscle use. Clear to auscultation. Breath sounds equal bilaterally. GASTROINTESTINAL: Abdomen soft, non-tender, nondistended. Hepatic and splenic margins not palpable. MUSCULOSKELETAL: Extremities without clubbing, cyanosis, or edema. No obvious deformities. NEUROLOGICAL: Awake and alert. No obvious cranial nerve deficits. Motor grossly within normal limits. 3.5 TO 4 out of 5 muscle strength in the arms and legs. Normal speech. PSYCHIATRIC: INAppropriate mood and affect; insight and judgment ABnormal. - Urinary Catheter Management Indwelling Urethral Catheter Cath placed during this visit: yes Reason for continuing: Other continuation reason Insertion date: 04/11/18 Insertion time: 16:00 Results - Labs CBC & Chem 7: 04/13/18 10:05 04/13/18 10:05 Laboratory Results - last 24 hr 04/15/18 04/15/18 04/15/18 00:00 01:11 06:15 POC Glucose 105 86 Stl C.difficile Tox PCR Positive H St C. diff Tox Epid 027 Positive H Microbiology 04/11/18 15:30 Blood - Peripheral Aerobic Blood Culture - Preliminary No growth in 4 days 04/11/18 15:30 Blood - Peripheral Anaerobic Blood Culture - Preliminary No growth in 4 days 04/11/18 15:35 Blood - Peripheral Aerobic Blood Culture - Preliminary No growth in 4 days 04/11/18 15:35 Blood - Peripheral Anaerobic Blood Culture - Preliminary No growth in 4 days 04/11/18 15:35 Catheterized Urine Urine Culture - Final Magnolia albicans Assessment and Plan - Plan Hyperkalemia -Hold potassium supplement -IV hydration, reduce IVF to 50 ml per hour due to pedal edema -s/p Kayexalate -Monitor trend, K 4.9 today -Series of EKGs and telemetry Nausea vomiting -CT abdomen shows only constipation -As needed Zofran -Duration -Laxatives, Fleet Enema -GI consulted for feculent appearing material from NG tube Atrial fibrillation -Diltiazem Probable Dementia -Monitor neuro status closely multiple pressure wounds. Buttocks wounds, all wounds present on admission. Per daughter wound care follows as outpatient. Consult wound care. Change dressings as need DVT GI prophylaxis -Teds SCDs -Subcu heparin -Pepcid STOOL FOR C.DIFFICILE IS POSITIVE START VANCO PO 250MG PO Q6H FOR 28 DAYS PATIENT REMAINS OUT OF RESTRAINTS Discussed with the patient, nurse, patient's daughter at bedside. Note the patient was to snf facility then she went to her daughter' s home. The daughter is very pleasant and involved in care . Per daughter patient is to go to snf facility after discharge. DC to SNF when improves and able to tolerate food. Code Status: FULL CODE Discussed Condition With: RN AND CM AND PT Discharge Planning: HOPEFULLY TO SNF IN NEXT FEW DAYS IF REACCEPTED WITH C.DIFF POSITIVE AND OUT OF RESTRAINTS
[2018-04-16] MEDS: Heparin - SQ 10,000 UNITS/ML Vial SQ SCH ×3 (05:00→21:43)
[2018-04-16] MEDS: Chlorhexidine Gluconate 2% 1 Pack (2 Cloths) TOPICAL SCH (05:01)
[2018-04-16] MEDS: Sod Chloride 0.9% Inj 1,000 ML IV.CONT SCH ×2 (07:03→12:02)
[2018-04-16] MEDS: dilTIAZem CD 240 MG Capsule PO SCH (09:27)
[2018-04-16] MEDS: Senna/Docusate Sodium 8.6/50 MG Tablet PO SCH ×2 (09:27→21:41)
[2018-04-16] MEDS: Famotidine 20 MG Tablet PO SCH ×2 (09:27→21:41)
--- NOTE | 2018-04-16 10:44 | P.PNIM ---
Subjective Interval history: 82-year-old female with past medical history of atrial fibrillation, hypertension, dyslipidemia and some dementia presents with nausea/Vomiting/ Diarrhea and altered mental status. The patient is able to provide answers to simple questions however is unable to specify when and how her symptoms started. In the emergency department she was found to have a potassium above 5 with repeat 6.4 and is therefore admitted to ICU telemetry. 04/12: Patient is lying in bed oriented 2. NG tube in place with feculent appearing material. CT abdomen pelvis showed fecal impaction and dilated colon. GI consult requested for further evaluation. Fleets enema and Dulcolax suppository ordered. Potassium is 4.9 today. 04/13/18 the patient is in bed she appears chronically ill. She is sleeping however she is arousable. Opens her eyes and she is asking for water. Patient is n.p.o. at this time but she can have ice chips. Patient is mostly nonverbal does not follow much commands. No nausea or vomiting. Does not eat much. 04/14/18 the patient is asking for popsicles. She is tolerated clears. She is pleasantly confused. Agitated on and off. Restraints are off. More awake and alert. Says she does not have any chest pain no abdominal pain. No fever or chills. 04-15 PATIENT NOTED TO BE POSITIVE FOR C.DIFFICILE COLITIS WILL START ON VANCO 250MG PO Q6 HR WILL NEED TREATMENT FOR AT LEAST 28 DAYS CAN TRANSFER OFF OF [facility] DW RN AND PT AND CM AM LABS REMAINS OUT OF RESTRAINTS 04-16 REMAINS CONFUSED HAS C. DIFFICILE COLITIS- ON VANCO 250MG PO Q6H AM LABS OUT OF RESTRAINTS AWAIT CM FOR WHEN CAN GO BACK TO SNF Physical Exam Vital signs: Vital Signs 04/15/18 11:00 04/15/18 12:00 04/15/18 13:00 Temperature Pulse Rate 67 74 70 Respiratory Rate 18 Blood Pressure 111/53 L Pulse Oximetry 98 04/15/18 14:00 04/15/18 15:00 04/15/18 15:46 Temperature 97.6 F Pulse Rate 102 H 84 68 Respiratory Rate 18 Blood Pressure 118/49 L Pulse Oximetry 97 04/15/18 16:00 04/15/18 17:00 04/15/18 18:00 Temperature Pulse Rate 98 H 94 H 74 Respiratory Rate Blood Pressure Pulse Oximetry 04/15/18 19:00 04/15/18 20:00 04/15/18 21:00 Temperature 97.3 F L Pulse Rate 81 88 90 Respiratory Rate 20 Blood Pressure 116/63 Pulse Oximetry 99 04/15/18 22:00 04/15/18 23:00 04/16/18 00:00 Temperature 97.7 F Pulse Rate 68 71 53 L Respiratory Rate 20 Blood Pressure 129/49 L Pulse Oximetry 98 04/16/18 01:00 04/16/18 02:00 04/16/18 03:00 Temperature Pulse Rate 69 70 72 Respiratory Rate Blood Pressure Pulse Oximetry 04/16/18 04:00 04/16/18 05:00 04/16/18 05:52 Temperature 96.3 F L Pulse Rate 43 L 104 H 92 H Respiratory Rate 20 Blood Pressure 104/35 L Pulse Oximetry 99 04/16/18 08:00 04/16/18 09:00 04/16/18 10:00 Temperature Pulse Rate 76 82 98 H Respiratory Rate Blood Pressure 104/47 L Pulse Oximetry 99 Intake & Output 04/15/18 04/16/18 04/16/18 18:59 06:59 18:59 Intake Total 1000 / 1000 720 / 720 1000 / 1000 Balance 1000 / 1000 720 / 720 1000 / 1000 Weight 99.1 kg Intake: IV 1000 / 1000 NS Inj 1,000 ML @ 50 mls/hr IV. 1000 / 1000 CONT .Q20H [facility] Rx#:[id number] Oral 1000 / 1000 720 / 720 Other: # Incontinent Voids 8 3 Date of Last Bowel Movement 04/15/18 04/15/18 04/16/18 # Bowel Movements 6 # Incontinent Bowel Movements 8 Narrative: GENERAL: Awake and alert talkative and cooperative quite confused --appears to be at baseline--confused at baseline SKIN: Warm and dry. Pressure ulcer/sacral ulcer decubitus HEAD: Atraumatic. Normocephalic. EYES: Pupils equal and round. No scleral icterus. No injection or drainage. ENT: No nasal bleeding or discharge. Mucous membranes pink and moist. NECK: Trachea midline. No JVD. CARDIOVASCULAR: IRRegular rate and rhythm. S1-S2 no S3 or S4 RESPIRATORY: No accessory muscle use. Clear to auscultation. Breath sounds equal bilaterally. GASTROINTESTINAL: Abdomen soft, non-tender, nondistended. Hepatic and splenic margins not palpable. MUSCULOSKELETAL: Extremities without clubbing, cyanosis, or edema. No obvious deformities. NEUROLOGICAL: Awake and alert. No obvious cranial nerve deficits. Motor grossly within normal limits. 3.5 TO 4 out of 5 muscle strength in the arms and legs. Normal speech. PSYCHIATRIC: INAppropriate mood and affect; insight and judgment ABnormal. - Urinary Catheter Management Indwelling Urethral Catheter Cath placed during this visit: yes Reason for continuing: Other continuation reason Insertion date: 04/11/18 Insertion time: 16:00 Results - Labs CBC & Chem 7: 04/13/18 10:05 04/13/18 10:05 Laboratory Results - last 24 hr 04/15/18 04/16/18 23:48 05:42 POC Glucose 98 90 Microbiology 04/11/18 15:30 Blood - Peripheral Aerobic Blood Culture - Preliminary No growth in 4 days 04/11/18 15:30 Blood - Peripheral Anaerobic Blood Culture - Preliminary No growth in 4 days 04/11/18 15:35 Blood - Peripheral Aerobic Blood Culture - Preliminary No growth in 4 days 04/11/18 15:35 Blood - Peripheral Anaerobic Blood Culture - Preliminary No growth in 4 days - Imaging Abdomen/Pelvis CT 04/11/18 15:12 CONCLUSION: Abdomen X-Ray 04/13/18 08:00 CONCLUSION: Abdomen X-Ray 04/14/18 06:00 CONCLUSION: 1. Findings most consistent with improving mild adynamic ileus pattern. - Procedures NONE Assessment and Plan - Plan Hyperkalemia -Hold potassium supplement -IV hydration, reduce IVF to 50 ml per hour due to pedal edema -s/p Kayexalate -Monitor trend, K 4.9 today -Series of EKGs and telemetry REPLACE AGAIN Nausea vomiting -CT abdomen shows only constipation -As needed Zofran -Duration -Laxatives, Fleet Enema -GI consulted for feculent appearing material from NG tube Atrial fibrillation -Diltiazem Probable Dementia -Monitor neuro status closely multiple pressure wounds. Buttocks wounds, all wounds present on admission. Per daughter wound care follows as outpatient. Consult wound care. Change dressings as need DVT GI prophylaxis -Teds SCDs -Subcu heparin -Pepcid STOOL FOR C.DIFFICILE IS POSITIVE START VANCO PO 250MG PO Q6H FOR 28 DAYS PATIENT REMAINS OUT OF RESTRAINTS Discussed with the patient, nurse, patient's daughter at bedside. Note the patient was to [facility] facility then she went to her daughter' s home. The daughter is very pleasant and involved in care . Per daughter patient is to go to [facility] facility after discharge. DC to SNF when improves and able to tolerate food. Code Status: FULL CODE Discussed Condition With: RN AND PT AND CM Discharge Planning: HOPEFULLY TO SNF IN NEXT FEW DAYS IF REACCEPTED WITH C.DIFF POSITIVE AND OUT OF RESTRAINTS
[2018-04-16 11:15] LABS: INR 2.9 Ratio; Prothrombin Time 29.6 sec (9.8-11.6)
[2018-04-16 11:36] LABS: Baso % (Auto) 0.3 % (0.0-2.0); Eos # (Auto) 0.1 th/mm3 (0.0-0.4); Hematocrit 42.5 % (35.0-46.0); Lymph # (Auto) 1.9 th/mm3 (1.0-4.8); Lymph % (Auto) 21.3 % (9.0-44.0); Mean Corpuscular Hemoglobin 28.9 pg (27.0-34.0); Mean Platelet Volume 8.2 fL (7.0-11.0); Mono # (Auto) 0.6 th/mm3 (0.0-0.9); Mono % (Auto) 6.7 % (0.0-8.0); Neut # (Auto) 6.2 th/mm3 (1.8-7.7); Neut % (Auto) 70.7 % (16.0-70.0); Platelet Count 207 th/mm3 (150-450); Red Blood Count 4.52 mil/mm3 (4.00-5.30); White Blood Count 8.8 th/mm3 (4.0-11.0)
[2018-04-16 11:41] LABS: Mean Corpuscular HGB Conc 30.7 % (32.0-36.0)
[2018-04-16] MEDS: Fluconazole 100 MG Tablet PO SCH (12:29)
[2018-04-16 15:17] LABS: Albumin 1.7 g/dL (3.4-5.0); Calcium 7.3 mg/dL (8.5-10.1); Carbon Dioxide 20.6 meq/L (21.0-32.0); Free T4 (Free Thyroxine) 1.44 ng/dL (0.76-1.46); Magnesium 2.1 mg/dL (1.5-2.5); Phosphorus 2.1 mg/dL (2.5-4.9); Thyroid Stimulating Hormone 1.81 uIU/mL (0.358-3.740); Total Protein 4.7 g/dL (6.4-8.2)
[2018-04-16 15:44] LABS: Potassium 2.2 meq/L (3.5-5.1)
[2018-04-16] MEDS ORDERED: Potassium Bicarbonate 25 MEQ Effervescent Tablet PO ONE ×2 (16:15→17:00)
--- NOTE | 2018-04-16 16:56 | P.PNWCN ---
Wound Care Nurse Consult Description: Consult for wound management of buttocks per Dr Burk Communicated with: RN Recommendation: Continue Calazime BID and PRN for moisture related partial thickness skin loss. Santyl daily to right lateral hip and left medial knee. Additional information: Patient seen on [facility] for wound evaluation of buttocks. Wound/Pressure Injury - Wound Left Knee Wound Staging: Unstageable Requested from Provider a Wound Care Consult: No Length: 2.2 (cm) Width: 2 (cm) Depth: 1.3 (cm) Wound Bed Appearance: Yellow Surrounding Tissue Appearance: Andrews Drainage Amount: None Drainage Odor: No Odor Dressing Status: Dry & Intact, Changed Cleansing Solution: Saline Wound Packing Type: Gauze Pads Primary Dressing: Gauze Pad Cover Dressing: Adhesive Dressing Wound Dressing Change Date: 04/16/18 Right Hip Wound Staging: Unstageable Requested from Provider a Wound Care Consult: No Length: 5 (cm) Width: 3.2 (cm) Depth: 3 (cm) Wound Bed Appearance: Yellow Surrounding Tissue Appearance: Andrews Drainage Amount: None Drainage Odor: No Odor Dressing Status: Dry & Intact, Changed Cleansing Solution: Saline Wound Packing Type: Gauze Pads Primary Dressing: Gauze Pad Cover Dressing: Adhesive Dressing Wound Dressing Change Date: 04/16/18 bilateral buttocks Requested from Provider a Wound Care Consult: Yes Wound Bed Appearance: Peeling Skin Wound Bed Appearance: denuded Drainage Amount: None Drainage Odor: No Odor Dressing Status: Open to Air Cleansing Solution: Saline Topical: Calazime skin protectant paste
[2018-04-16] MEDS ORDERED: Potassium Chloride 25 MEQ Effervescent Tablet PO ONE (19:00)
[2018-04-16 20:51] LABS: Hemoglobin A1c 4.9 % (4.3-6.0)
--- NOTE | 2018-04-16 20:58 | MB ---
cc: Scott Guerra MD DATE: 04/16/2018 REASON FOR CONSULTATION: Left knee wound and right hip wound. HISTORY OF PRESENT ILLNESS: This patient is an 82-year-old female with a past history of atrial fibrillation, hypertension, hyperlipidemia and dementia, who was admitted to [facility] with diarrhea, nausea, vomiting and altered mental status. She is unable to answer questions and does not know who she is or where she is at. She has been managed by the medical and gastrointestinal service in regard to her condition and has been diagnosed with Clostridium difficile. It is unclear in regard to why she has a wound to the lateral aspect of her right hip and left knee. The patient cannot give any history and I see nothing in the medical record describing where the wounds came from her or anything of that nature. There is a note from a wound care nurse, and I have been requested in consultation to evaluate these wounds. PAST MEDICAL HISTORY: As above. MEDICATIONS: Reviewed by the MAR. SOCIAL HISTORY: Nonsmoker, nondrinker. REVIEW OF SYSTEMS: Currently unobtainable due to her altered mental status. PHYSICAL EXAMINATION: VITAL SIGNS: Pulse rate 60, blood pressure 109/54, temperature 98, respirations 16, pulse oximetry 95% on room air. GENERAL: The patient is severely obese, lying in bed. She is awake but has severe dementia, altered mental status. She does not answer questions or follow commands. She does not know who she is or where she is at. HEENT: Normocephalic, atraumatic. Pupils round. No scleral icterus. NECK: Supple. LUNGS: Clear. HEART: S1, S2, irregular. ABDOMEN: Obese, soft, nontender. EXTREMITIES: On examination of the left knee, the patient has a 3 x 3 cm wound over the medial aspect of the left knee. There is some mild necrotic tissue. No significant surrounding erythema. On examination of the right hip, there is approximately a 6 cm wound along the lateral aspect of the right hip. The wound is fairly deep, and again, there is some necrotic tissue over this wound. No purulent drainage. IMPRESSION: An 82-year-old female with dementia, altered mental status, Clostridium difficile, multiple medical comorbidities. The patient has wounds of the left knee and right hip of unclear etiology. PLAN: I have cleaned the wounds with soap and water and gently scrubbed and debrided them at the bedside. I would recommend soap and water wound care daily. Continue wound care nurse consultation. I would not recommend formal operative debridement in the operating room at this stage. MD HUSSAIN Roberts/darlyn , 08:22 PM , 08:29 PM
[2018-04-17] MEDS: Heparin - SQ 10,000 UNITS/ML Vial SQ SCH ×3 (05:04→21:09)
[2018-04-17] MEDS: Fluconazole 100 MG Tablet PO SCH (08:37)
[2018-04-17] MEDS: Famotidine 20 MG Tablet PO SCH ×2 (08:37→21:09)
[2018-04-17] MEDS: Senna/Docusate Sodium 8.6/50 MG Tablet PO SCH ×2 (08:37→21:10)
[2018-04-17] MEDS: dilTIAZem CD 240 MG Capsule PO SCH (08:37)
[2018-04-17] MEDS: Potassium Chloride 25 MEQ Effervescent Tablet PO SCH (08:37)
[2018-04-17] MEDS: Sod Chloride 0.9% Inj 1,000 ML IV.CONT SCH (08:38)
[2018-04-17 10:54] LABS: Alanine Aminotransferase 20 U/L (10-53); Albumin 1.6 g/dL (3.4-5.0); Alkaline Phosphatase 94 U/L (45-117); Anion Gap 10 meq/L (5-15); Aspartate Aminotransferase 39 U/L (15-37); Blood Urea Nitrogen 22 mg/dL (7-18); Calcium 7.6 mg/dL (8.5-10.1); Carbon Dioxide 19.9 meq/L (21.0-32.0); Chloride 110 meq/L (98-107); Glomerular Filtration Rate Greater Than 89 mL/min (>89); Glucose,Random 98 mg/dL (74-106); Magnesium 2.1 mg/dL (1.5-2.5); Phosphorus 2.3 mg/dL (2.5-4.9); Potassium 3.4 meq/L (3.5-5.1); Total Protein 4.9 g/dL (6.4-8.2)
[2018-04-17 10:59] LABS: Sodium 140 meq/L (136-145)
--- NOTE | 2018-04-17 11:15 | P.PN ---
Physical Exam Vital signs: Vital Signs 04/16/18 12:00 04/16/18 13:00 04/16/18 14:00 Temperature Pulse Rate 60 68 48 L Respiratory Rate Blood Pressure Pulse Oximetry 98 04/16/18 15:00 04/16/18 16:00 04/16/18 20:00 Temperature 98.5 F 97.2 F L Pulse Rate 52 L 52 L 55 L Respiratory Rate 18 18 Blood Pressure 109/54 L 109/57 L Pulse Oximetry 95 96 04/17/18 00:00 04/17/18 00:34 04/17/18 04:00 Temperature 97.6 F 97.5 F L Pulse Rate 47 L 71 60 Respiratory Rate 16 18 Blood Pressure 102/62 121/64 Pulse Oximetry 98 100 04/17/18 04:34 04/17/18 08:00 04/17/18 10:12 Temperature 97.9 F Pulse Rate 83 45 L 71 Respiratory Rate 18 Blood Pressure 121/56 L Pulse Oximetry 99 Intake & Output 04/16/18 04/17/18 04/17/18 18:59 06:59 18:59 Intake Total 1000 / 1000 240 / 240 Output Total 75 / 75 Balance 1000 / 1000 165 / 165 Weight 96.9 kg 100.2 kg Intake: IV 1000 / 1000 NS Inj 1,000 ML @ 50 mls/hr IV. 1000 / 1000 CONT .Q20H AMELIE Rx#:[id number] Oral 240 / 240 Output: Urine Amount (Catheter) 75 / 75 Indwelling Urethral Catheter 75 / 75 Other: # Incontinent Voids 3 Date of Last Bowel Movement 04/16/18 04/17/18 04/17/18 # Bowel Movements 3 Narrative: Subjective Interval history: 82-year-old female with past medical history of atrial fibrillation, hypertension, dyslipidemia and some dementia presents with nausea/Vomiting/ Diarrhea and altered mental status. The patient is able to provide answers to simple questions however is unable to specify when and how her symptoms started. In the emergency department she was found to have a potassium above 5 with repeat 6.4 and is therefore admitted to ICU telemetry. 04/12: Patient is lying in bed oriented 2. NG tube in place with feculent appearing material. CT abdomen pelvis showed fecal impaction and dilated colon. GI consult requested for further evaluation. Fleets enema and Dulcolax suppository ordered. Potassium is 4.9 today. 04/13/18 the patient is in bed she appears chronically ill. She is sleeping however she is arousable. Opens her eyes and she is asking for water. Patient is n.p.o. at this time but she can have ice chips. Patient is mostly nonverbal does not follow much commands. No nausea or vomiting. Does not eat much. 04/14/18 the patient is asking for popsicles. She is tolerated clears. She is pleasantly confused. Agitated on and off. Restraints are off. More awake and alert. Says she does not have any chest pain no abdominal pain. No fever or chills. 04-15 PATIENT NOTED TO BE POSITIVE FOR C.DIFFICILE COLITIS WILL START ON VANCO 250MG PO Q6 HR WILL NEED TREATMENT FOR AT LEAST 28 DAYS CAN TRANSFER OFF OF [facility] RN AND PT AND CM AM LABS REMAINS OUT OF RESTRAINTS 04-16 REMAINS CONFUSED HAS C. DIFFICILE COLITIS- ON VANCO 250MG PO Q6H AM LABS OUT OF RESTRAINTS AWAIT CM FOR WHEN CAN GO BACK TO SNF 04/17/18 In bed says she wants to drink water. zDignishiels with low output , remove dignishild if improving. Physical Exam GENERAL: Awake and alert talkative and cooperative quite confused --appears to be at baseline--confused at baseline CARDIOVASCULAR: Irregular rate and rhythm. S1-S2 no S3 or S4 RESPIRATORY: No accessory muscle use. Clear to auscultation. Breath sounds equal bilaterally. GASTROINTESTINAL: Abdomen soft, non-tender, nondistended. Hepatic and splenic margins not palpable. MUSCULOSKELETAL: Extremities without clubbing, cyanosis, or edema. No obvious deformities. NEUROLOGICAL: Awake and alert. No obvious cranial nerve deficits. Motor grossly within normal limits. 3.5 TO 4 out of 5 muscle strength in the arms and legs. Normal speech. PSYCHIATRIC: INAppropriate mood and affect; insight and judgment ABnormal. Assessment and Plan Hyperkalemia -Hold potassium supplement -IV hydration, reduce IVF to 50 ml per hour due to pedal edema -s/p Kayexalate -Monitor trend, K 4.9 today -Series of EKGs and telemetry REPLACE AGAIN Nausea vomiting -CT abdomen shows only constipation -As needed Zofran -Duration -Laxatives, Fleet Enema -GI consulted for feculent appearing material from NG tube Atrial fibrillation -Diltiazem Probable Dementia -Monitor neuro status closely Multiple pressure wounds. Buttocks wounds, all wounds present on admission. Per daughter wound care follows as outpatient. Consult wound care. Change dressings as need Appreciate wound care recommendations Continue Calazime BID and PRN for moisture related partial thickness skin loss. Santyl daily to right lateral hip and left medial knee. DVT GI prophylaxis -Teds SCDs -Subcu heparin -Pepcid STOOL FOR C.DIFFICILE IS POSITIVE START VANCO PO 250MG PO Q6H FOR 28 DAYS PATIENT REMAINS OUT OF RESTRAINTS Discussed with the patient, nurse, patient's daughter at bedside. Note the patient was to long term facility then she went to her daughter' s home. The daughter is very pleasant and involved in care . Per daughter patient is to go to long term facility after discharge. DC to SNF when improves and able to tolerate food. Code Status: FULL CODE Discussed Condition With: RN AND PT AND CM Discharge Planning: HOPEFULLY TO SNF IN NEXT FEW DAYS IF REACCEPTED WITH C.DIFF POSITIVE AND OUT OF RESTRAINTS - Urinary Catheter Management Indwelling Urethral Catheter Cath placed during this visit: yes Reason for continuing: Other continuation reason Insertion date: 04/11/18 Insertion time: 16:00 Results - Labs CBC & Chem 7: 04/17/18 12:37 04/17/18 09:50 Laboratory Results - last 24 hr 04/16/18 04/16/18 04/16/18 10:25 10:26 10:26 WBC 8.8 RBC 4.52 Hgb 13.0 Hct 42.5 MCV 94.0 MCH 28.9 MCHC 30.7 L RDW 19.0 H Plt Count 207 MPV 8.2 Neut % (Auto) 70.7 H Lymph % (Auto) 21.3 [place] % (Auto) 6.7 Eos % (Auto) 1.0 Baso % (Auto) 0.3 Neut # (Auto) 6.2 Lymph # (Auto) 1.9 [place] # (Auto) 0.6 Eos # (Auto) 0.1 Baso # (Auto) 0.0 WBC Differential . Differential Comment Auto diff final PT 29.6 H INR 2.9 Sodium Potassium Chloride Carbon Dioxide Anion Gap BUN Creatinine Estimated GFR Random Glucose Hemoglobin A1c 4.9 Calcium Prot Corrected Calcium Phosphorus Magnesium Total Bilirubin AST ALT Alkaline Phosphatase Total Protein Albumin TSH Free T4 04/16/18 04/17/18 14:20 09:50 WBC RBC Hgb Hct MCV MCH MCHC RDW Plt Count MPV Neut % (Auto) Lymph % (Auto) [place] % (Auto) Eos % (Auto) Baso % (Auto) Neut # (Auto) Lymph # (Auto) [place] # (Auto) Eos # (Auto) Baso # (Auto) WBC Differential Differential Comment PT INR Sodium 142 140 Potassium 2.2 L* 3.4 L D Chloride 112 H 110 H Carbon Dioxide 20.6 L 19.9 L Anion Gap 9 10 BUN 21 H 22 H Creatinine 0.74 0.61 Estimated GFR 76 L Greater than 89 Random Glucose 99 98 Hemoglobin A1c Calcium 7.3 L* 7.6 L Prot Corrected Calcium 8.7 Phosphorus 2.1 L 2.3 L Magnesium 2.1 2.1 Total Bilirubin 0.4 0.5 AST 23 39 H ALT 21 20 Alkaline Phosphatase 85 94 Total Protein 4.7 L 4.9 L Albumin 1.7 L 1.6 L TSH 1.810 Free T4 1.44 Microbiology 04/11/18 15:30 Blood - Peripheral Aerobic Blood Culture - Final No growth in 5 days 04/11/18 15:30 Blood - Peripheral Anaerobic Blood Culture - Final No growth in 5 days 04/11/18 15:35 Blood - Peripheral Aerobic Blood Culture - Final No growth in 5 days 04/11/18 15:35 Blood - Peripheral Anaerobic Blood Culture - Final No growth in 5 days - Procedures NONE
[2018-04-17 13:32] LABS: Baso % (Auto) 0.2 % (0.0-2.0); Eos # (Auto) 0.1 th/mm3 (0.0-0.4); Eos % (Auto) 0.5 % (0.0-4.0); Hemoglobin 13.6 gm/dL (11.6-15.3); Lymph # (Auto) 2.1 th/mm3 (1.0-4.8); Lymph % (Auto) 15.4 % (9.0-44.0); Mean Corpuscular HGB Conc 33.1 % (32.0-36.0); Mean Corpuscular Hemoglobin 29.3 pg (27.0-34.0); Mean Corpuscular Volume 88.7 fL (80.0-100.0); Mean Platelet Volume 8.9 fL (7.0-11.0); Mono % (Auto) 7.6 % (0.0-8.0); Neut # (Auto) 10.5 th/mm3 (1.8-7.7); Neut % (Auto) 76.3 % (16.0-70.0); Platelet Count 395 th/mm3 (150-450); Red Blood Count 4.63 mil/mm3 (4.00-5.30); Red Cell Distribution Width 18.5 % (11.6-17.2); White Blood Count 13.7 th/mm3 (4.0-11.0)
[2018-04-18] MEDS: Heparin - SQ 10,000 UNITS/ML Vial SQ SCH ×3 (05:59→20:30)
[2018-04-18] MEDS: Sod Chloride 0.9% Inj 1,000 ML IV.CONT SCH (05:59)
[2018-04-18] MEDS: Fluconazole 100 MG Tablet PO SCH (09:37)
[2018-04-18] MEDS: dilTIAZem CD 240 MG Capsule PO SCH (09:37)
[2018-04-18] MEDS: Famotidine 20 MG Tablet PO SCH ×2 (09:38→20:30)
[2018-04-18] MEDS: Potassium Chloride 25 MEQ Effervescent Tablet PO SCH (09:38)
[2018-04-18] MEDS: Senna/Docusate Sodium 8.6/50 MG Tablet PO SCH ×2 (09:38→20:30)
[2018-04-18] MEDS: Collagenase Oint 30 GM Tube TOPICAL SCH (09:40)
--- NOTE | 2018-04-18 14:50 | P.DS ---
Date of admission: 04/11/18 18:24 Primary care physician: UNKNOWN Brief History from admission: Cancel this DC summary duplicate 82-year-old very pleasant female with past medical history of atrial fibrillation, hypertension, dyslipidemia and some mention dementia presents with nausea/Vomiting/Diarrhea and altered mental status. The patient is able to provide answers to simple questions however is unable to specify when and how her symptoms started. In the emergency department she was found to have a potassium above 5 with repeat 6.4 and is therefore admitted to ICU telemetry. DS: Medications - Discharge Medications Prescriptions: fluconazole 100 mg PO DAILY #5 tab Lactobacillus acidoph-L.bulgar [Lactinex] 1 tab PO DAILY #30 tab vancomycin 250 mg PO QID 14 Days ea DS: Summary Hospital Course: cancel - Time Spent with Patient Total time spent providing and/or coordinating discharge services: Less than 30 minutes - Quality: VTE Deep Vein Thrombosis/Pulmonary Embolism Present on Admission: No Exam Vital signs: Vital Signs 04/17/18 16:00 04/17/18 20:00 04/18/18 00:00 Temperature 97.5 F L 97.8 F 97.3 F L Pulse Rate 61 56 L 59 L Respiratory Rate 18 18 18 Blood Pressure 115/56 L 98/53 L 119/58 L Pulse Oximetry 100 98 99 04/18/18 04:00 04/18/18 12:00 Temperature 98 F 97.4 F L Pulse Rate 46 L 121 H Respiratory Rate 18 14 Blood Pressure 113/54 L 116/58 L Pulse Oximetry 100 99 Intake & Output 04/17/18 04/18/18 04/18/18 18:59 06:59 18:59 Intake Total 240 / 240 600 / 600 Output Total 75 / 75 Balance 165 / 165 600 / 600 Weight 98.6 kg Intake: Oral 240 / 240 600 / 600 Output: Urine Amount (Catheter) 75 / 75 Indwelling Urethral Catheter 75 / 75 Other: # Incontinent Voids 1 # Urine Diapers 3 Date of Last Bowel Movement 04/17/18 04/17/18 04/17/18 # Incontinent Bowel Movements 2 3 Results Procedures completed during hospitalization: NONE - Impressions ITS Impressions Abdomen/Pelvis CT 04/11/18 15:12 CONCLUSION: Abdomen X-Ray 04/14/18 06:00 CONCLUSION: 1. Findings most consistent with improving mild adynamic ileus pattern. Discharge Plan - Discharge Disposition Patient Disposition: 03 Discharge to SNF - Discharge Condition Condition: Stable - Discharge Order Discharge Orders: Discharge Order (Routine); Ordered 04/24/18 Ordered By: Angelia Burk - Discharge Details Anticipated Discharge Date: 04/18/18 - Physicians Team Primary Care Provider: UNKNOWN, Attending Provider: Angelia Burk Other Providers: Mary Hurt MD ; Raissa Haji ; [facility],[place] ; Scott Guerra MD ; [facility]
--- NOTE | 2018-04-18 19:06 | P.PN ---
Physical Exam Vital signs: Vital Signs 04/17/18 20:00 04/18/18 00:00 04/18/18 04:00 Temperature 97.8 F 97.3 F L 98 F Pulse Rate 56 L 59 L 46 L Respiratory Rate 18 18 18 Blood Pressure 98/53 L 119/58 L 113/54 L Pulse Oximetry 98 99 100 04/18/18 12:00 04/18/18 16:00 Temperature 97.4 F L 97.4 F L Pulse Rate 121 H 72 Respiratory Rate 14 14 Blood Pressure 116/58 L 91/51 L Pulse Oximetry 99 93 L Intake & Output 04/18/18 04/18/18 04/19/18 06:59 18:59 06:59 Intake Total 600 / 600 Balance 600 / 600 Weight 98.6 kg Intake: Oral 600 / 600 Other: # Urine Diapers 3 Date of Last Bowel Movement 04/17/18 04/17/18 # Bowel Movements 1 # Incontinent Bowel Movements 3 Narrative: Subjective Interval history: 82-year-old female with past medical history of atrial fibrillation, hypertension, dyslipidemia and some dementia presents with nausea/Vomiting/ Diarrhea and altered mental status. The patient is able to provide answers to simple questions however is unable to specify when and how her symptoms started. In the emergency department she was found to have a potassium above 5 with repeat 6.4 and is therefore admitted to ICU telemetry. 04/12: Patient is lying in bed oriented 2. NG tube in place with feculent appearing material. CT abdomen pelvis showed fecal impaction and dilated colon. GI consult requested for further evaluation. Fleets enema and Dulcolax suppository ordered. Potassium is 4.9 today. 04/13/18 the patient is in bed she appears chronically ill. She is sleeping however she is arousable. Opens her eyes and she is asking for water. Patient is n.p.o. at this time but she can have ice chips. Patient is mostly nonverbal does not follow much commands. No nausea or vomiting. Does not eat much. 04/14/18 the patient is asking for popsicles. She is tolerated clears. She is pleasantly confused. Agitated on and off. Restraints are off. More awake and alert. Says she does not have any chest pain no abdominal pain. No fever or chills. 04-15 PATIENT NOTED TO BE POSITIVE FOR C.DIFFICILE COLITIS WILL START ON VANCO 250MG PO Q6 HR WILL NEED TREATMENT FOR AT LEAST 28 DAYS CAN TRANSFER OFF OF [facility] DW RN AND PT AND CM AM LABS REMAINS OUT OF RESTRAINTS 04-16 REMAINS CONFUSED HAS C. DIFFICILE COLITIS- ON VANCO 250MG PO Q6H AM LABS OUT OF RESTRAINTS AWAIT CM FOR WHEN CAN GO BACK TO SNF 04/17/18 In bed says she wants to drink water. zDignishiels with low output , remove dignishild if improving. 04/18 Patient in bed sleepy. Had one episode of diarrhea today. No cramps. Pleasantly confused. No n/v. No fever or chills. Physical Exam GENERAL: Awake and alert talkative and cooperative quite confused --appears to be at baseline--confused at baseline CARDIOVASCULAR: Irregular rate and rhythm. S1-S2 no S3 or S4 RESPIRATORY: No accessory muscle use. Clear to auscultation. Breath sounds equal bilaterally. GASTROINTESTINAL: Abdomen soft, non-tender, nondistended. Hepatic and splenic margins not palpable. MUSCULOSKELETAL: Extremities without clubbing, cyanosis, or edema. No obvious deformities. NEUROLOGICAL: Awake and alert. No obvious cranial nerve deficits. Motor grossly within normal limits. 3.5 TO 4 out of 5 muscle strength in the arms and legs. Normal speech. PSYCHIATRIC: INAppropriate mood and affect; insight and judgment ABnormal. Assessment and Plan Hyperkalemia -Hold potassium supplement -IV hydration, reduce IVF to 50 ml per hour due to pedal edema -s/p Kayexalate -Monitor trend, K 4.9 today -Series of EKGs and telemetry REPLACE AGAIN Nausea vomiting -CT abdomen shows only constipation -As needed Zofran -Duration -Laxatives, Fleet Enema -GI consulted for feculent appearing material from NG tube Atrial fibrillation -Diltiazem Probable Dementia -Monitor neuro status closely Multiple pressure wounds. Buttocks wounds, all wounds present on admission. Per daughter wound care follows as outpatient. Consult wound care. Change dressings as need Appreciate wound care recommendations Continue Calazime BID and PRN for moisture related partial thickness skin loss. Santyl daily to right lateral hip and left medial knee. DVT GI prophylaxis -Teds SCDs -Subcu heparin -Pepcid STOOL FOR C.DIFFICILE IS POSITIVE START VANCO PO 250MG PO Q6H FOR 28 DAYS PATIENT REMAINS OUT OF RESTRAINTS Discussed with the patient, nurse, patient's daughter at bedside. Note the patient was to intermediate facility then she went to her daughter' s home. The daughter is very pleasant and involved in care . Per daughter patient is to go to intermediate facility after discharge. DC to SNF when improves and able to tolerate food. Code Status: FULL CODE Discussed Condition With: RN AND PT AND CM Discharge Planning: HOPEFULLY TO SNF IN NEXT FEW DAYS IF REACCEPTED WITH C.DIFF POSITIVE AND OUT OF RESTRAINTS DC when diarrhea subsides - Urinary Catheter Management Indwelling Urethral Catheter Cath placed during this visit: yes Reason for continuing: Other continuation reason Insertion date: 04/11/18 Insertion time: 16:00 Results - Labs CBC & Chem 7: 04/17/18 12:37 04/17/18 09:50 - Procedures NONE
[2018-04-19] MEDS: Sod Chloride 0.9% Inj 1,000 ML IV.CONT SCH ×2 (01:00→23:43)
[2018-04-19] MEDS: Heparin - SQ 10,000 UNITS/ML Vial SQ SCH ×3 (04:37→19:55)
[2018-04-19] MEDS: Fluconazole 100 MG Tablet PO SCH (09:20)
[2018-04-19] MEDS: dilTIAZem CD 240 MG Capsule PO SCH (09:20)
[2018-04-19] MEDS: Senna/Docusate Sodium 8.6/50 MG Tablet PO SCH ×2 (09:20→20:00)
[2018-04-19] MEDS: Famotidine 20 MG Tablet PO SCH ×2 (09:20→20:00)
[2018-04-19] MEDS: Collagenase Oint 30 GM Tube TOPICAL SCH (09:21)
[2018-04-19] MEDS: Potassium Chloride 25 MEQ Effervescent Tablet PO SCH (09:21)
--- NOTE | 2018-04-19 09:27 | P.PN ---
Physical Exam Vital signs: Vital Signs 04/18/18 12:00 04/18/18 16:00 04/18/18 20:30 Temperature 97.4 F L 97.4 F L 98.7 F Pulse Rate 103 H 70 56 L Respiratory Rate 14 14 16 Blood Pressure 116/58 L 91/51 L 116/65 Pulse Oximetry 99 93 L 99 04/19/18 00:45 04/19/18 02:00 04/19/18 05:00 Temperature 98.8 F Pulse Rate 64 102 H Respiratory Rate 16 18 Blood Pressure 121/60 Pulse Oximetry 98 04/19/18 05:45 04/19/18 06:00 Temperature 98.9 F Pulse Rate 58 L 79 Respiratory Rate 17 Blood Pressure 110/59 L Pulse Oximetry 97 Intake & Output 04/18/18 04/19/18 04/19/18 18:59 06:59 18:59 Intake Total 575 / 575 Balance 575 / 575 Weight 98.6 kg Intake: Oral 575 / 575 Other: # Voids 2 # Incontinent Voids 5 Date of Last Bowel Movement 04/17/18 # Bowel Movements 1 2 Narrative: Subjective Interval history: 82-year-old female with past medical history of atrial fibrillation, hypertension, dyslipidemia and some dementia presents with nausea/Vomiting/ Diarrhea and altered mental status. The patient is able to provide answers to simple questions however is unable to specify when and how her symptoms started. In the emergency department she was found to have a potassium above 5 with repeat 6.4 and is therefore admitted to ICU telemetry. 04/12: Patient is lying in bed oriented 2. NG tube in place with feculent appearing material. CT abdomen pelvis showed fecal impaction and dilated colon. GI consult requested for further evaluation. Fleets enema and Dulcolax suppository ordered. Potassium is 4.9 today. 04/13/18 the patient is in bed she appears chronically ill. She is sleeping however she is arousable. Opens her eyes and she is asking for water. Patient is n.p.o. at this time but she can have ice chips. Patient is mostly nonverbal does not follow much commands. No nausea or vomiting. Does not eat much. 04/14/18 the patient is asking for popsicles. She is tolerated clears. She is pleasantly confused. Agitated on and off. Restraints are off. More awake and alert. Says she does not have any chest pain no abdominal pain. No fever or chills. 04-15 PATIENT NOTED TO BE POSITIVE FOR C.DIFFICILE COLITIS WILL START ON VANCO 250MG PO Q6 HR WILL NEED TREATMENT FOR AT LEAST 28 DAYS CAN TRANSFER OFF OF [facility] DW RN AND PT AND CM AM LABS REMAINS OUT OF RESTRAINTS 04-16 REMAINS CONFUSED HAS C. DIFFICILE COLITIS- ON VANCO 250MG PO Q6H AM LABS OUT OF RESTRAINTS AWAIT CM FOR WHEN CAN GO BACK TO SNF 04/17/18 In bed says she wants to drink water. zDignishiels with low output , remove dignishild if improving. 04/18 Patient in bed sleepy. Had one episode of diarrhea today. No cramps. Pleasantly confused. No n/v. No fever or chills. 04/19 still with diarrhea today. Also some abdominal pain per daughter bedside patient complained of abdominal pain earlier today. Patient however better now no abdominal pain is pleasantly confused. Eating fairly well. No nausea or vomiting. Physical Exam GENERAL: Awake and alert talkative and cooperative quite confused --appears to be at baseline--confused at baseline CARDIOVASCULAR: Irregular rate and rhythm. S1-S2 no S3 or S4 RESPIRATORY: No accessory muscle use. Clear to auscultation. Breath sounds equal bilaterally. GASTROINTESTINAL: Abdomen soft, non-tender, nondistended. Hepatic and splenic margins not palpable. MUSCULOSKELETAL: Extremities without clubbing, cyanosis, or edema. No obvious deformities. NEUROLOGICAL: Awake and alert. No obvious cranial nerve deficits. Motor grossly within normal limits. 3.5 TO 4 out of 5 muscle strength in the arms and legs. Normal speech. PSYCHIATRIC: INAppropriate mood and affect; insight and judgment ABnormal. Assessment and Plan Hyperkalemia -Hold potassium supplement -IV hydration, reduce IVF to 50 ml per hour due to pedal edema -s/p Kayexalate -Monitor trend, K 4.9 today -Series of EKGs and telemetry REPLACE AGAIN Nausea vomiting -CT abdomen shows only constipation -As needed Zofran -Duration -Laxatives, Fleet Enema -GI consulted for feculent appearing material from NG tube Atrial fibrillation -Diltiazem Probable Dementia -Monitor neuro status closely Multiple pressure wounds. Buttocks wounds, all wounds present on admission. Per daughter wound care follows as outpatient. Consult wound care. Change dressings as need Appreciate wound care recommendations Continue Amarilysime BID and PRN for moisture related partial thickness skin loss. Santyl daily to right lateral hip and left medial knee. DVT GI prophylaxis -Teds SCDs -Subcu heparin -Pepcid STOOL FOR C.DIFFICILE IS POSITIVE START VANCO PO 250MG PO Q6H FOR 28 DAYS PATIENT REMAINS OUT OF RESTRAINTS Discussed with the patient, nurse, patient's daughter at bedside. Note the patient was to long-term facility then she went to her daughter' s home. The daughter is very pleasant and involved in care . Per daughter patient is to go to long-term facility after discharge. DC to SNF when improves and able to tolerate food. Code Status: FULL CODE Discussed Condition With: RN AND PT AND CM Discharge Planning: HOPEFULLY TO SNF IN NEXT FEW DAYS IF REACCEPTED WITH C.DIFF POSITIVE AND OUT OF RESTRAINTS DC when diarrhea subsides - Urinary Catheter Management Indwelling Urethral Catheter Cath placed during this visit: yes Reason for continuing: Other continuation reason Insertion date: 04/11/18 Insertion time: 16:00 Results - Labs CBC & Chem 7: 04/17/18 12:37 04/17/18 09:50 - Procedures NONE
[2018-04-20] MEDS: Heparin - SQ 10,000 UNITS/ML Vial SQ SCH ×3 (05:00→22:23)
[2018-04-20] MEDS: Fluconazole 100 MG Tablet PO SCH (09:11)
[2018-04-20] MEDS: Famotidine 20 MG Tablet PO SCH ×2 (09:11→22:22)
[2018-04-20] MEDS: dilTIAZem CD 240 MG Capsule PO SCH (09:11)
[2018-04-20] MEDS: Potassium Chloride 25 MEQ Effervescent Tablet PO SCH (09:11)
[2018-04-20] MEDS: Senna/Docusate Sodium 8.6/50 MG Tablet PO SCH ×2 (09:11→22:24)
[2018-04-20] MEDS: Collagenase Oint 30 GM Tube TOPICAL SCH (09:18)
--- NOTE | 2018-04-20 15:46 | P.PN ---
Physical Exam Vital signs: Vital Signs 04/19/18 16:00 04/19/18 17:36 04/19/18 18:23 Temperature 98.7 F Pulse Rate 54 L 67 Respiratory Rate 18 18 Blood Pressure 106/58 L Pulse Oximetry 100 04/19/18 21:20 04/19/18 22:00 04/20/18 00:45 Temperature 98.8 F 98.1 F Pulse Rate 68 92 H 66 Respiratory Rate 19 17 Blood Pressure 115/67 Pulse Oximetry 96 97 04/20/18 02:00 04/20/18 05:00 04/20/18 08:00 Temperature 99 F 97.3 F L Pulse Rate 103 H 58 L 55 L Respiratory Rate 18 20 Blood Pressure 103/66 105/51 L Pulse Oximetry 99 100 04/20/18 11:55 04/20/18 12:00 04/20/18 12:45 Temperature 98 F Pulse Rate 84 60 73 Respiratory Rate 20 Blood Pressure 91/51 L Pulse Oximetry 100 Intake & Output 04/19/18 04/20/18 04/20/18 18:59 06:59 18:59 Intake Total 875 / 875 Balance 875 / 875 Weight 98.6 kg Intake: Oral 875 / 875 Other: # Voids 1 8 1 Date of Last Bowel Movement 04/19/18 04/19/18 # Bowel Movements 1 4 1 Narrative: Subjective Interval history: 82-year-old female with past medical history of atrial fibrillation, hypertension, dyslipidemia and some dementia presents with nausea/Vomiting/ Diarrhea and altered mental status. The patient is able to provide answers to simple questions however is unable to specify when and how her symptoms started. In the emergency department she was found to have a potassium above 5 with repeat 6.4 and is therefore admitted to ICU telemetry. 04/12: Patient is lying in bed oriented 2. NG tube in place with feculent appearing material. CT abdomen pelvis showed fecal impaction and dilated colon. GI consult requested for further evaluation. Fleets enema and Dulcolax suppository ordered. Potassium is 4.9 today. 04/13/18 the patient is in bed she appears chronically ill. She is sleeping however she is arousable. Opens her eyes and she is asking for water. Patient is n.p.o. at this time but she can have ice chips. Patient is mostly nonverbal does not follow much commands. No nausea or vomiting. Does not eat much. 04/14/18 the patient is asking for popsicles. She is tolerated clears. She is pleasantly confused. Agitated on and off. Restraints are off. More awake and alert. Says she does not have any chest pain no abdominal pain. No fever or chills. 04-15 PATIENT NOTED TO BE POSITIVE FOR C.DIFFICILE COLITIS WILL START ON VANCO 250MG PO Q6 HR WILL NEED TREATMENT FOR AT LEAST 28 DAYS CAN TRANSFER OFF OF [facility] RN AND PT AND CM AM LABS REMAINS OUT OF RESTRAINTS 04-16 REMAINS CONFUSED HAS C. DIFFICILE COLITIS- ON VANCO 250MG PO Q6H AM LABS OUT OF RESTRAINTS AWAIT CM FOR WHEN CAN GO BACK TO SNF 04/17/18 In bed says she wants to drink water. zDignishiels with low output , remove dignishild if improving. 04/18 Patient in bed sleepy. Had one episode of diarrhea today. No cramps. Pleasantly confused. No n/v. No fever or chills. 04/19 still with diarrhea today. Also some abdominal pain per daughter bedside patient complained of abdominal pain earlier today. Patient however better now no abdominal pain is pleasantly confused. Eating fairly well. No nausea or vomiting. 04/20 With diarrhea 4 BMs overnight and one in the AM. With some abd pain. Will give cholestyramine Physical Exam GENERAL: Awake and alert talkative and cooperative quite confused --appears to be at baseline--confused at baseline CARDIOVASCULAR: Irregular rate and rhythm. S1-S2 no S3 or S4 RESPIRATORY: No accessory muscle use. Clear to auscultation. Breath sounds equal bilaterally. GASTROINTESTINAL: Abdomen soft, non-tender, nondistended. Hepatic and splenic margins not palpable. MUSCULOSKELETAL: Extremities without clubbing, cyanosis, or edema. No obvious deformities. NEUROLOGICAL: Awake and alert. No obvious cranial nerve deficits. Motor grossly within normal limits. 3.5 TO 4 out of 5 muscle strength in the arms and legs. Normal speech. PSYCHIATRIC: INAppropriate mood and affect; insight and judgment ABnormal. Assessment and Plan Hyperkalemia -Hold potassium supplement -IV hydration, reduce IVF to 50 ml per hour due to pedal edema -s/p Kayexalate -Monitor trend, K 4.9 today -Series of EKGs and telemetry REPLACE AGAIN Nausea vomiting -CT abdomen shows only constipation -As needed Zofran -Duration -Laxatives, Fleet Enema -GI consulted for feculent appearing material from NG tube Atrial fibrillation -Diltiazem Probable Dementia -Monitor neuro status closely Multiple pressure wounds. Buttocks wounds, all wounds present on admission. Per daughter wound care follows as outpatient. Consult wound care. Change dressings as need Appreciate wound care recommendations Continue Calazime BID and PRN for moisture related partial thickness skin loss. Santyl daily to right lateral hip and left medial knee. C diff diarrhea. STOOL FOR C.DIFFICILE IS POSITIVE continue vanco. PO 250MG PO Q6H FOR 28 DAYS Add cholestyramine DVT GI prophylaxis -Teds SCDs -Subcu heparin -Pepcid PATIENT REMAINS OUT OF RESTRAINTS Discussed with the patient, nurse, patient's daughter at bedside. Note the patient was to shelter facility then she went to her daughter' s home. The daughter is very pleasant and involved in care . Per daughter patient is to go to shelter facility after discharge. DC to SNF when improves and able to tolerate food. Code Status: FULL CODE Discussed Condition With: RN AND PT AND CM Discharge Planning: HOPEFULLY TO SNF IN NEXT FEW DAYS IF REACCEPTED WITH C.DIFF POSITIVE AND OUT OF RESTRAINTS DC when diarrhea subsides - Urinary Catheter Management Indwelling Urethral Catheter Cath placed during this visit: yes Reason for continuing: Other continuation reason Insertion date: 04/11/18 Insertion time: 16:00 Results - Labs CBC & Chem 7: 04/17/18 12:37 04/17/18 09:50 - Procedures NONE
[2018-04-20] MEDS: Sod Chloride 0.9% Inj 1,000 ML IV.CONT SCH (17:31)
[2018-04-21] MEDS: Heparin - SQ 10,000 UNITS/ML Vial SQ SCH ×3 (04:10→21:59)
[2018-04-21] MEDS: Potassium Chloride 25 MEQ Effervescent Tablet PO SCH (08:58)
[2018-04-21] MEDS: Senna/Docusate Sodium 8.6/50 MG Tablet PO SCH ×2 (09:01→21:59)
[2018-04-21] MEDS: Fluconazole 100 MG Tablet PO SCH (09:02)
[2018-04-21] MEDS: dilTIAZem CD 240 MG Capsule PO SCH (09:02)
[2018-04-21] MEDS: Collagenase Oint 30 GM Tube TOPICAL SCH (09:02)
[2018-04-21] MEDS: Famotidine 20 MG Tablet PO SCH ×2 (09:02→21:59)
--- NOTE | 2018-04-21 09:16 | P.PN ---
Physical Exam Vital signs: Vital Signs 04/20/18 11:55 04/20/18 12:00 04/20/18 12:45 Temperature 98 F Pulse Rate 84 60 73 Respiratory Rate 20 Blood Pressure 91/51 L Pulse Oximetry 100 04/20/18 16:00 04/20/18 17:56 04/20/18 20:00 Temperature 97.3 F L 98.2 F Pulse Rate 67 54 L Respiratory Rate 18 18 Blood Pressure 93/54 L 105/58 L 139/76 Pulse Oximetry 99 96 04/20/18 20:30 04/21/18 00:00 04/21/18 04:00 Temperature 98.1 F 98 F Pulse Rate 78 84 58 L Respiratory Rate 18 18 Blood Pressure 95/58 L 115/62 Pulse Oximetry 99 97 Intake & Output 04/20/18 04/21/18 04/21/18 18:59 06:59 18:59 Output Total Balance - - Weight 98.5 kg Output: Stool Other: # Voids 1 3 Date of Last Bowel Movement 04/21/18 # Bowel Movements 1 Narrative: Subjective Interval history: 82-year-old female with past medical history of atrial fibrillation, hypertension, dyslipidemia and some dementia presents with nausea/Vomiting/ Diarrhea and altered mental status. The patient is able to provide answers to simple questions however is unable to specify when and how her symptoms started. In the emergency department she was found to have a potassium above 5 with repeat 6.4 and is therefore admitted to ICU telemetry. 04/12: Patient is lying in bed oriented 2. NG tube in place with feculent appearing material. CT abdomen pelvis showed fecal impaction and dilated colon. GI consult requested for further evaluation. Fleets enema and Dulcolax suppository ordered. Potassium is 4.9 today. 04/13/18 the patient is in bed she appears chronically ill. She is sleeping however she is arousable. Opens her eyes and she is asking for water. Patient is n.p.o. at this time but she can have ice chips. Patient is mostly nonverbal does not follow much commands. No nausea or vomiting. Does not eat much. 04/14/18 the patient is asking for popsicles. She is tolerated clears. She is pleasantly confused. Agitated on and off. Restraints are off. More awake and alert. Says she does not have any chest pain no abdominal pain. No fever or chills. 04-15 PATIENT NOTED TO BE POSITIVE FOR C.DIFFICILE COLITIS WILL START ON VANCO 250MG PO Q6 HR WILL NEED TREATMENT FOR AT LEAST 28 DAYS CAN TRANSFER OFF OF [facility] RN AND PT AND CM AM LABS REMAINS OUT OF RESTRAINTS 04-16 REMAINS CONFUSED HAS C. DIFFICILE COLITIS- ON VANCO 250MG PO Q6H AM LABS OUT OF RESTRAINTS AWAIT CM FOR WHEN CAN GO BACK TO SNF 04/17/18 In bed says she wants to drink water. zDignishiels with low output , remove dignishild if improving. 04/18 Patient in bed sleepy. Had one episode of diarrhea today. No cramps. Pleasantly confused. No n/v. No fever or chills. 04/19 still with diarrhea today. Also some abdominal pain per daughter bedside patient complained of abdominal pain earlier today. Patient however better now no abdominal pain is pleasantly confused. Eating fairly well. No nausea or vomiting. 04/20 With diarrhea 4 BMs overnight and one in the AM. With some abd pain. Will give cholestyramine 04/21 In bed. Pleasantly confused. Noted with low K replaced by IV. Patient still with abd pain. Diarrhea improved. No n/v. No fever or chills. Physical Exam GENERAL: Awake and alert talkative and cooperative quite confused --appears to be at baseline--confused at baseline CARDIOVASCULAR: Irregular rate and rhythm. S1-S2 no S3 or S4 RESPIRATORY: No accessory muscle use. Clear to auscultation. Breath sounds equal bilaterally. GASTROINTESTINAL: Abdomen soft, non-tender, nondistended. Hepatic and splenic margins not palpable. MUSCULOSKELETAL: Extremities without clubbing, cyanosis, or edema. No obvious deformities. NEUROLOGICAL: Awake and alert. No obvious cranial nerve deficits. Motor grossly within normal limits. 3.5 TO 4 out of 5 muscle strength in the arms and legs. Normal speech. PSYCHIATRIC: INAppropriate mood and affect; insight and judgment ABnormal. Assessment and Plan Hyperkalemia -Hold potassium supplement -IV hydration, reduce IVF to 50 ml per hour due to pedal edema -s/p Kayexalate -Monitor trend, K 4.9 today -Series of EKGs and telemetry REPLACE AGAIN Nausea vomiting improving Constipation resolved With diarrhea thereafter. improving -CT abdomen shows only constipation -As needed Zofran -Duration -Laxatives, Fleet Enema -GI consulted for feculent appearing material from NG tube Atrial fibrillation -Diltiazem Probable Dementia -Monitor neuro status closely Multiple pressure wounds. Buttocks wounds, all wounds present on admission. Per daughter wound care follows as outpatient. Consult wound care. Change dressings as need Appreciate wound care recommendations Continue Calazime BID and PRN for moisture related partial thickness skin loss. Santyl daily to right lateral hip and left medial knee. C diff diarrhea. STOOL FOR C.DIFFICILE IS POSITIVE continue vanco. PO 250MG PO Q6H FOR 28 DAYS Add cholestyramine DVT GI prophylaxis -Teds SCDs -Subcu heparin -Pepcid PATIENT REMAINS OUT OF RESTRAINTS Discussed with the patient, nurse, patient's daughter at bedside. Note the patient was to shelter facility then she went to her daughter' s home. The daughter is very pleasant and involved in care . Per daughter patient is to go to shelter facility after discharge. DC to SNF when improves and able to tolerate food. Code Status: FULL CODE Discussed Condition With: RN AND PT AND CM Discharge Planning: HOPEFULLY TO SNF IN NEXT FEW DAYS IF REACCEPTED WITH C.DIFF POSITIVE AND OUT OF RESTRAINTS DC when diarrhea subsides - Urinary Catheter Management Indwelling Urethral Catheter Cath placed during this visit: yes Reason for continuing: Other continuation reason Insertion date: 04/11/18 Insertion time: 16:00 Results - Labs CBC & Chem 7: 04/21/18 07:37 04/21/18 07:37 - Procedures NONE
[2018-04-21 09:22] LABS: Baso % (Auto) 0.2 % (0.0-2.0); Eos % (Auto) 0.2 % (0.0-4.0); Hemoglobin 13.9 gm/dL (11.6-15.3); Lymph # (Auto) 2.3 th/mm3 (1.0-4.8); Lymph % (Auto) 14.4 % (9.0-44.0); Mean Corpuscular HGB Conc 32.4 % (32.0-36.0); Mean Corpuscular Volume 86.4 fL (80.0-100.0); Mean Platelet Volume 8.9 fL (7.0-11.0); Mono # (Auto) 0.6 th/mm3 (0.0-0.9); Mono % (Auto) 3.5 % (0.0-8.0); Neut # (Auto) 13.3 th/mm3 (1.8-7.7); Neut % (Auto) 81.7 % (16.0-70.0); Platelet Count 182 th/mm3 (150-450); Red Blood Count 4.98 mil/mm3 (4.00-5.30); Red Cell Distribution Width 18.7 % (11.6-17.2); White Blood Count 16.3 th/mm3 (4.0-11.0)
[2018-04-21 09:56] LABS: Anion Gap 13 meq/L (5-15); Blood Urea Nitrogen 26 mg/dL (7-18); Calcium 7.7 mg/dL (8.5-10.1); Carbon Dioxide 20.1 meq/L (21.0-32.0); Chloride 103 meq/L (98-107); Glomerular Filtration Rate Greater Than 89 mL/min (>89); Glucose,Random 90 mg/dL (74-106)
[2018-04-21 09:57] LABS: Sodium 136 meq/L (136-145)
[2018-04-21 09:59] LABS: Potassium 2.7 meq/L (3.5-5.1)
[2018-04-21] MEDS ORDERED: Potassium Bicarbonate 25 MEQ Effervescent Tablet PO ONE (11:22)
[2018-04-21] MEDS ORDERED: Magnesium Oxide 400 MG Tablet PO ONE (11:23)
[2018-04-21] MEDS: Sod Chloride 0.9% Inj 1,000 ML IV.CONT SCH (11:23)
[2018-04-21] MEDS: Lactobacillus Acidophilus/L. Spores Tablet PO SCH ×2 (12:46→17:01)
[2018-04-22] MEDS: Heparin - SQ 10,000 UNITS/ML Vial SQ SCH ×3 (04:46→21:43)
--- NOTE | 2018-04-22 07:55 | P.PN ---
Physical Exam Vital signs: Vital Signs 04/21/18 08:00 04/21/18 12:00 04/21/18 16:00 Temperature 97.2 F L 97.5 F L 97.5 F L Pulse Rate 82 73 103 H Respiratory Rate 18 Blood Pressure 107/51 L 109/64 105/61 Pulse Oximetry 98 98 99 04/21/18 20:00 04/22/18 00:00 04/22/18 04:00 Temperature 97.8 F 98.3 F 97.9 F Pulse Rate 61 89 89 Respiratory Rate 18 Blood Pressure 132/92 H 108/57 L 109/59 L Pulse Oximetry 98 99 100 Intake & Output 04/21/18 04/22/18 04/22/18 18:59 06:59 18:59 Intake Total 400 / 400 Balance 400 / 400 Weight 101.5 kg Intake: Oral 400 / 400 Other: # Voids 3 # Incontinent Voids 3 Date of Last Bowel Movement 04/20/18 04/22/18 # Bowel Movements 1 Narrative: Subjective Interval history: 82-year-old female with past medical history of atrial fibrillation, hypertension, dyslipidemia and some dementia presents with nausea/Vomiting/ Diarrhea and altered mental status. The patient is able to provide answers to simple questions however is unable to specify when and how her symptoms started. In the emergency department she was found to have a potassium above 5 with repeat 6.4 and is therefore admitted to ICU telemetry. 04/12: Patient is lying in bed oriented 2. NG tube in place with feculent appearing material. CT abdomen pelvis showed fecal impaction and dilated colon. GI consult requested for further evaluation. Fleets enema and Dulcolax suppository ordered. Potassium is 4.9 today. 04/13/18 the patient is in bed she appears chronically ill. She is sleeping however she is arousable. Opens her eyes and she is asking for water. Patient is n.p.o. at this time but she can have ice chips. Patient is mostly nonverbal does not follow much commands. No nausea or vomiting. Does not eat much. 04/14/18 the patient is asking for popsicles. She tolerated clears. She is pleasantly confused. Agitated on and off. Restraints are off. More awake and alert. Says she does not have any chest pain no abdominal pain. No fever or chills. 04-15 PATIENT NOTED TO BE POSITIVE FOR C.DIFFICILE COLITIS WILL START ON VANCO 250MG PO Q6 HR WILL NEED TREATMENT FOR AT LEAST 28 DAYS CAN TRANSFER OFF OF [facility] RN AND PT AND CM AM LABS REMAINS OUT OF RESTRAINTS 04-16 REMAINS CONFUSED HAS C. DIFFICILE COLITIS- ON VANCO 250MG PO Q6H AM LABS OUT OF RESTRAINTS AWAIT CM FOR WHEN CAN GO BACK TO SNF 04/17/18 In bed says she wants to drink water. zDignishiels with low output , remove dignishild if improving. 04/18 Patient in bed sleepy. Had one episode of diarrhea today. No cramps. Pleasantly confused. No n/v. No fever or chills. 04/19 still with diarrhea today. Also some abdominal pain per daughter bedside patient complained of abdominal pain earlier today. Patient however better now no abdominal pain is pleasantly confused. Eating fairly well. No nausea or vomiting. 04/20 With diarrhea 4 BMs overnight and one in the AM. With some abd pain. Will give cholestyramine 04/21 In bed. Pleasantly confused. Noted with low K replaced by IV. Patient still with abd pain. Diarrhea improved. No n/v. No fever or chills. 04/22/18 Patient in nad. More awake and alert. Says she is hungry. No more diarrhea. No fever or chills. K replaced yesterday as was noted low. Repeat K today back to normal. patient without diarrhea, and she is eating better. Physical Exam GENERAL: Awake and alert talkative and cooperative quite confused --appears to be at baseline-confused at baseline. CARDIOVASCULAR: Irregular rate and rhythm. S1-S2 no S3 or S4 RESPIRATORY: No accessory muscle use. Clear to auscultation. Breath sounds equal bilaterally. GASTROINTESTINAL: Abdomen soft, non-tender, nondistended. Hepatic and splenic margins not palpable. MUSCULOSKELETAL: Extremities without clubbing, cyanosis, or edema. No obvious deformities. NEUROLOGICAL: Awake and alert. No obvious cranial nerve deficits. Motor grossly within normal limits. 3.5 TO 4 out of 5 muscle strength in the arms and legs. Normal speech. PSYCHIATRIC: poor insight and judgment. Assessment and Plan Hyperkalemia -Hold potassium supplement -IV hydration, reduce IVF to 50 ml per hour due to pedal edema. DC IVF and enscouraged pO intake. Patient with goof PO intake. -s/p Kayexalate -Monitor trend, K 4.9 today -Series of EKGs and telemetry Nausea vomiting , Resolved Constipation resolved With diarrhea thereafter and C diff . Stool is forming -CT abdomen shows only constipation -As needed Zofran -Rceived Laxatives, Fleet Enema when she had constipation admission -GI consulted for feculent appearing material from NG tube on admission . Patient has been disimpacted by GI. Atrial fibrillation -Diltiazem Probable Dementia -Monitor neuro status closely Multiple pressure wounds. Buttocks wounds, all wounds present on admission. Per daughter wound care follows as outpatient. Consult wound care. Change dressings as need Appreciate wound care recommendations Continue Calazime BID and PRN for moisture related partial thickness skin loss. Santyl daily to right lateral hip and left medial knee. C diff diarrhea. STOOL FOR C.DIFFICILE IS POSITIVE continue vanco PO 250MG PO Q6H FOR 28 DAYS Add cholestyramine. Stool is froming. Likely secretory diarrhea at this time. DVT GI prophylaxis -Teds SCDs -Subcu heparin -Pepcid PATIENT REMAINS OUT OF RESTRAINTS Discussed with the patient, nurse, patient's daughter at bedside. Note the patient was to nursing home facility then she went to her daughter' s home. The daughter is very pleasant and involved in care . Per daughter patient is to go to nursing home facility after discharge. DC to SNF when improves and able to tolerate food. Code Status: FULL CODE Discussed Condition With: RN AND PT AND CM Discharge Planning: HOPEFULLY TO SNF IN NEXT FEW DAYS IF REACCEPTED WITH C.DIFF POSITIVE AND OUT OF RESTRAINTS DC when is accepted to SNF, patient without diarrhea. Discussed with the CM. [facility] is not taking patient as with C diff, they need repeat C diff neg . Cant have repeat C diff as patient without diarrhea and cant have sample. [facility] per daughter. CM is ff for other SNF - Urinary Catheter Management Indwelling Urethral Catheter Cath placed during this visit: yes Reason for continuing: Other continuation reason Insertion date: 04/11/18 Insertion time: 16:00 Results - Labs CBC & Chem 7: 04/22/18 09:20 04/22/18 09:20 Laboratory Results - last 24 hr 04/21/18 04/21/18 07:37 07:37 WBC 16.3 H RBC 4.98 Hgb 13.9 Hct 43.0 MCV 86.4 MCH 28.0 MCHC 32.4 RDW 18.7 H Plt Count 182 D MPV 8.9 Neut % (Auto) 81.7 H Lymph % (Auto) 14.4 Shannon % (Auto) 3.5 Eos % (Auto) 0.2 Baso % (Auto) 0.2 Neut # (Auto) 13.3 H Lymph # (Auto) 2.3 Shannon # (Auto) 0.6 Eos # (Auto) 0.0 Baso # (Auto) 0.0 WBC Differential . Differential Comment Auto diff final Sodium 136 Potassium 2.7 L* Chloride 103 Carbon Dioxide 20.1 L Anion Gap 13 BUN 26 H Creatinine 0.61 Estimated GFR Greater than 89 Random Glucose 90 Calcium 7.7 L - Procedures NONE
[2018-04-22] MEDS ORDERED: Fluconazole 100 MG Tablet PO SCH (09:00)
[2018-04-22] MEDS: dilTIAZem CD 240 MG Capsule PO SCH (09:07)
[2018-04-22] MEDS: Famotidine 20 MG Tablet PO SCH ×2 (09:07→21:42)
[2018-04-22] MEDS: Potassium Chloride 25 MEQ Effervescent Tablet PO SCH (09:07)
[2018-04-22] MEDS: Lactobacillus Acidophilus/L. Spores Tablet PO SCH ×3 (09:07→17:43)
[2018-04-22] MEDS: Fluconazole 100 MG Tablet PO SCH (09:07)
[2018-04-22] MEDS: Collagenase Oint 30 GM Tube TOPICAL SCH (09:08)
[2018-04-22] MEDS: Senna/Docusate Sodium 8.6/50 MG Tablet PO SCH ×2 (09:08→21:43)
[2018-04-22] MEDS: Sod Chloride 0.9% Inj 1,000 ML IV.CONT SCH (09:08)
[2018-04-22 09:45] LABS: Baso # (Auto) 0.1 th/mm3 (0.0-0.2); Baso % (Auto) 0.3 % (0.0-2.0); Eos % (Auto) 0.2 % (0.0-4.0); Lymph # (Auto) 2.3 th/mm3 (1.0-4.8); Lymph % (Auto) 12.4 % (9.0-44.0); Mean Corpuscular HGB Conc 32.4 % (32.0-36.0); Mean Corpuscular Hemoglobin 27.3 pg (27.0-34.0); Mean Corpuscular Volume 84.1 fL (80.0-100.0); Mean Platelet Volume 8.7 fL (7.0-11.0); Mono # (Auto) 0.5 th/mm3 (0.0-0.9); Mono % (Auto) 2.8 % (0.0-8.0); Neut # (Auto) 15.3 th/mm3 (1.8-7.7); Neut % (Auto) 84.3 % (16.0-70.0); Platelet Count 207 th/mm3 (150-450); Red Blood Count 4.75 mil/mm3 (4.00-5.30); Red Cell Distribution Width 18.3 % (11.6-17.2); White Blood Count 18.2 th/mm3 (4.0-11.0)
[2018-04-22 10:08] LABS: Alanine Aminotransferase 28 U/L (10-53); Albumin 1.6 g/dL (3.4-5.0); Alkaline Phosphatase 138 U/L (45-117); Anion Gap 12 meq/L (5-15); Aspartate Aminotransferase 39 U/L (15-37); Blood Urea Nitrogen 26 mg/dL (7-18); Calcium 7.8 mg/dL (8.5-10.1); Carbon Dioxide 19.9 meq/L (21.0-32.0); Chloride 103 meq/L (98-107); Glomerular Filtration Rate Greater Than 89 mL/min (>89); Glucose,Random 89 mg/dL (74-106); Magnesium 1.8 mg/dL (1.5-2.5); Sodium 135 meq/L (136-145); Total Protein 5.1 g/dL (6.4-8.2)
[2018-04-22 10:10] LABS: Potassium 4.2 meq/L (3.5-5.1)
[2018-04-22 10:17] LABS: Lymphocytes 5 % (9-44); Monocytes 3 % (0-8)
[2018-04-22 10:18] LABS: Platelet Estimate Normal (Normal); Platelet Morphology Normal (Normal); Toxic Granulation 1+
[2018-04-22] MEDS ORDERED: Potassium Phosphate 500 MG Soluble Tablet PO ONE (10:26)
[2018-04-23] MEDS: Heparin - SQ 10,000 UNITS/ML Vial SQ SCH ×3 (04:26→21:11)
[2018-04-23] MEDS: Sod Chloride 0.9% Inj 1,000 ML IV.CONT SCH (04:26)
[2018-04-23] MEDS: Potassium Chloride 25 MEQ Effervescent Tablet PO SCH (08:52)
[2018-04-23] MEDS: Senna/Docusate Sodium 8.6/50 MG Tablet PO SCH ×2 (08:53→21:12)
[2018-04-23] MEDS: Fluconazole 100 MG Tablet PO SCH (08:54)
[2018-04-23] MEDS: dilTIAZem CD 240 MG Capsule PO SCH (08:54)
[2018-04-23] MEDS: Lactobacillus Acidophilus/L. Spores Tablet PO SCH ×3 (08:54→18:40)
[2018-04-23] MEDS: Famotidine 20 MG Tablet PO SCH ×2 (08:54→21:11)
[2018-04-23] MEDS: Collagenase Oint 30 GM Tube TOPICAL SCH (09:06)
--- NOTE | 2018-04-23 09:19 | P.PN ---
Physical Exam Vital signs: Vital Signs 04/22/18 12:00 04/22/18 14:00 04/22/18 16:00 Temperature 96.4 F L 98.6 F Pulse Rate 60 53 L Respiratory Rate 20 20 Blood Pressure 88/51 L 98/63 L 101/67 Pulse Oximetry 97 99 04/22/18 20:00 04/23/18 00:00 04/23/18 04:00 Temperature 98.4 F 98.5 F 98.6 F Pulse Rate 66 87 77 Respiratory Rate 18 18 18 Blood Pressure 116/77 118/67 125/70 Pulse Oximetry 97 95 96 04/23/18 08:00 Temperature 97.7 F Pulse Rate 90 Respiratory Rate 18 Blood Pressure 109/63 Pulse Oximetry 100 Intake & Output 04/22/18 04/23/18 04/23/18 18:59 06:59 18:59 Weight 101.4 kg Other: # Voids 2 # Incontinent Voids 1 Date of Last Bowel Movement 04/21/18 04/21/18 # Incontinent Bowel Movements 1 Narrative: Subjective Interval history: 82-year-old female with past medical history of atrial fibrillation, hypertension, dyslipidemia and some dementia presents with nausea/Vomiting/ Diarrhea and altered mental status. The patient is able to provide answers to simple questions however is unable to specify when and how her symptoms started. In the emergency department she was found to have a potassium above 5 with repeat 6.4 and is therefore admitted to ICU telemetry. 04/12: Patient is lying in bed oriented 2. NG tube in place with feculent appearing material. CT abdomen pelvis showed fecal impaction and dilated colon. GI consult requested for further evaluation. Fleets enema and Dulcolax suppository ordered. Potassium is 4.9 today. 04/13/18 the patient is in bed she appears chronically ill. She is sleeping however she is arousable. Opens her eyes and she is asking for water. Patient is n.p.o. at this time but she can have ice chips. Patient is mostly nonverbal does not follow much commands. No nausea or vomiting. Does not eat much. 04/14/18 the patient is asking for popsicles. She tolerated clears. She is pleasantly confused. Agitated on and off. Restraints are off. More awake and alert. Says she does not have any chest pain no abdominal pain. No fever or chills. 04-15 PATIENT NOTED TO BE POSITIVE FOR C.DIFFICILE COLITIS WILL START ON VANCO 250MG PO Q6 HR WILL NEED TREATMENT FOR AT LEAST 28 DAYS CAN TRANSFER OFF OF [facility] RN AND PT AND CM AM LABS REMAINS OUT OF RESTRAINTS 04-16 REMAINS CONFUSED HAS C. DIFFICILE COLITIS- ON VANCO 250MG PO Q6H AM LABS OUT OF RESTRAINTS AWAIT CM FOR WHEN CAN GO BACK TO SNF 04/17/18 In bed says she wants to drink water. zDignishiels with low output , remove dignishild if improving. 04/18 Patient in bed sleepy. Had one episode of diarrhea today. No cramps. Pleasantly confused. No n/v. No fever or chills. 04/19 still with diarrhea today. Also some abdominal pain per daughter bedside patient complained of abdominal pain earlier today. Patient however better now no abdominal pain is pleasantly confused. Eating fairly well. No nausea or vomiting. 04/20 With diarrhea 4 BMs overnight and one in the AM. With some abd pain. Will give cholestyramine 04/21 In bed. Pleasantly confused. Noted with low K replaced by IV. Patient still with abd pain. Diarrhea improved. No n/v. No fever or chills. 04/22/18 Patient in nad. More awake and alert. Says she is hungry. No more diarrhea. No fever or chills. K replaced yesterday as was noted low. Repeat K today back to normal. patient without diarrhea, and she is eating better. 04/23/18. CM ff for DC plan, patient improved no more diarrhea. Patient is pleasantly confused and forgetfl No more diarrhea. No fever or chills. Has no complaints at this time. Physical Exam GENERAL: Awake and alert talkative and cooperative quite confused --appears to be at baseline-confused at baseline. CARDIOVASCULAR: Irregular rate and rhythm. S1-S2 no S3 or S4 RESPIRATORY: No accessory muscle use. Clear to auscultation. Breath sounds equal bilaterally. GASTROINTESTINAL: Abdomen soft, non-tender, nondistended. Hepatic and splenic margins not palpable. MUSCULOSKELETAL: Extremities without clubbing, cyanosis, or edema. No obvious deformities. NEUROLOGICAL: Awake and alert. No obvious cranial nerve deficits. Motor grossly within normal limits. 3.5 TO 4 out of 5 muscle strength in the arms and legs. Normal speech. PSYCHIATRIC: poor insight and judgment. Assessment and Plan Hyperkalemia -Hold potassium supplement -IV hydration, reduce IVF to 50 ml per hour due to pedal edema. DC IVF and enscouraged pO intake. Patient with goof PO intake. -s/p Kayexalate -Monitor trend, K 4.9 today -Series of EKGs and telemetry Nausea vomiting , Resolved Constipation resolved With diarrhea thereafter and C diff . Stool is forming -CT abdomen shows only constipation -As needed Zofran -Rceived Laxatives, Fleet Enema when she had constipation admission -GI consulted for feculent appearing material from NG tube on admission . Patient has been disimpacted by GI. Atrial fibrillation -Diltiazem Probable Dementia -Monitor neuro status closely Multiple pressure wounds. Buttocks wounds, all wounds present on admission. Per daughter wound care follows as outpatient. Consult wound care. Change dressings as need Appreciate wound care recommendations Continue Calazime BID and PRN for moisture related partial thickness skin loss. Santyl daily to right lateral hip and left medial knee. C diff diarrhea. STOOL FOR C.DIFFICILE IS POSITIVE continue vanco PO 250MG PO Q6H FOR 28 DAYS Add cholestyramine. Stool is froming. Likely secretory diarrhea at this time. DVT GI prophylaxis -Teds SCDs -Subcu heparin -Pepcid PATIENT REMAINS OUT OF RESTRAINTS Discussed with the patient, nurse, patient's daughter at bedside. Note the patient was to long term facility then she went to her daughter' s home. The daughter is very pleasant and involved in care . Per daughter patient is to go to long term facility after discharge. DC to SNF when improves and able to tolerate food. Code Status: FULL CODE Discussed Condition With: RN AND PT AND CM Discharge Planning: HOPEFULLY TO SNF IN NEXT FEW DAYS IF REACCEPTED WITH C.DIFF POSITIVE AND OUT OF RESTRAINTS DC when is accepted to SNF, patient without diarrhea. Discussed with the CM. [facility] patient as with C diff, they need repeat C diff neg . Cant have repeat C diff as patient without diarrhea and cant have sample. [facility] per daughter. CM is ff for other SNF - Urinary Catheter Management Indwelling Urethral Catheter Cath placed during this visit: yes Reason for continuing: Other continuation reason Insertion date: 04/11/18 Insertion time: 16:00 Results - Labs CBC & Chem 7: 04/22/18 09:20 04/22/18 09:20 Laboratory Results - last 24 hr 04/22/18 04/22/18 09:20 09:20 WBC 18.2 H RBC 4.75 Hgb 13.0 Hct 40.0 MCV 84.1 MCH 27.3 MCHC 32.4 RDW 18.3 H Plt Count 207 MPV 8.7 Prelim Diff (Auto) Slide review pending Neut % (Auto) 84.3 H Lymph % (Auto) 12.4 Stewart % (Auto) 2.8 Eos % (Auto) 0.2 Baso % (Auto) 0.3 Neut # (Auto) 15.3 H Lymph # (Auto) 2.3 Stewart # (Auto) 0.5 Eos # (Auto) 0.0 Baso # (Auto) 0.1 WBC Differential Manual diff final Seg Neuts % (Manual) 87 H Band Neuts % (Manual) 5 Lymphocytes % (Manual) 5 L Monocytes % (Manual) 3 Abs Neuts (Manual) 16.7 H Differential Comment . Toxic Granulation 1+ H Platelet Estimate Normal Platelet Morphology Normal Hematology Comments Sodium 135 L Potassium 4.2 D Chloride 103 Carbon Dioxide 19.9 L Anion Gap 12 BUN 26 H Creatinine 0.61 Estimated GFR Greater than 89 Random Glucose 89 Calcium 7.8 L Magnesium 1.8 Total Bilirubin 0.6 AST 39 H ALT 28 Alkaline Phosphatase 138 H Total Protein 5.1 L Albumin 1.6 L - Procedures NONE
[2018-04-24] MEDS: Heparin - SQ 10,000 UNITS/ML Vial SQ SCH ×2 (05:09→12:42)
[2018-04-24] MEDS: Sod Chloride 0.9% Inj 1,000 ML IV.CONT SCH (05:09)
[2018-04-24] MEDS: Lactobacillus Acidophilus/L. Spores Tablet PO SCH ×2 (09:23→12:42)
[2018-04-24] MEDS: Famotidine 20 MG Tablet PO SCH (09:23)
[2018-04-24] MEDS: dilTIAZem CD 240 MG Capsule PO SCH (09:23)
[2018-04-24] MEDS: Fluconazole 100 MG Tablet PO SCH (09:23)
[2018-04-24] MEDS: Senna/Docusate Sodium 8.6/50 MG Tablet PO SCH (09:23)
[2018-04-24] MEDS: Potassium Chloride 25 MEQ Effervescent Tablet PO SCH (09:23)
--- NOTE | 2018-04-24 10:11 | P.DS ---
Date of admission: 04/11/18 18:24 Primary care physician: UNKNOWN Brief History from admission: 82-year-old very pleasant female with past medical history of atrial fibrillation, hypertension, dyslipidemia and some mention dementia presents with nausea/Vomiting/Diarrhea and altered mental status. The patient is able to provide answers to simple questions however is unable to specify when and how her symptoms started. In the emergency department she was found to have a potassium above 5 with repeat 6.4 and is therefore admitted to ICU telemetry. DS: Medications - Discharge Medications Prescriptions: fluconazole 100 mg PO DAILY #5 tab Lactobacillus acidoph-L.bulgar [Lactinex] 1 tab PO DAILY #30 tab vancomycin 250 mg PO QID 14 Days ea DS: Summary Hospital Course: clinical update at DC: 04/24/18. CM ff for DC plan, patient improved and no more diarrhea. Was noted with low bP in the morning received 500 cc bolus NS BP improved. Patient is pleasantly confused and forgetful. No fever or chills. She is not coughing. Has no complaints at this time. Physical Exam GENERAL: Awake and alert talkative and cooperative quite confused --appears to be at baseline-confused at baseline. CARDIOVASCULAR: Irregular rate and rhythm. S1-S2 no S3 or S4 RESPIRATORY: No accessory muscle use. Clear to auscultation. Breath sounds equal bilaterally. GASTROINTESTINAL: Abdomen soft, non-tender, nondistended. Hepatic and splenic margins not palpable. MUSCULOSKELETAL: Extremities without clubbing, cyanosis, or edema. No obvious deformities. NEUROLOGICAL: Awake and alert. No obvious cranial nerve deficits. Motor grossly within normal limits. 3.5 TO 4 out of 5 muscle strength in the arms and legs. Normal speech. PSYCHIATRIC: poor insight and judgment. Assessment and Plan Hyperkalemia -Hold potassium supplement -IV hydration, reduce IVF to 50 ml per hour due to pedal edema. DC IVF and enscouraged pO intake. Patient with goof PO intake. -s/p Kayexalate -Monitor trend, K 4.9 today -Series of EKGs and telemetry Nausea vomiting , Resolved Constipation resolved With diarrhea thereafter and C diff . Stool is forming -CT abdomen shows only constipation -As needed Zofran -Rceived Laxatives, Fleet Enema when she had constipation admission -GI consulted for feculent appearing material from NG tube on admission . Patient has been disimpacted by GI. Atrial fibrillation -Diltiazem Probable Dementia -Monitor neuro status closely Multiple pressure wounds. Buttocks wounds, all wounds present on admission. Per daughter wound care follows as outpatient. Consult wound care. Change dressings as need Appreciate wound care recommendations Continue Calazime BID and PRN for moisture related partial thickness skin loss. Santyl daily to right lateral hip and left medial knee. C diff diarrhea. STOOL FOR C.DIFFICILE IS POSITIVE continue vanco PO 250MG PO Q6H FOR 28 DAYS Add cholestyramine. Stool is froming. Likely secretory diarrhea at this time. DVT GI prophylaxis -Teds SCDs -Subcu heparin -Pepcid PATIENT REMAINS OUT OF RESTRAINTS Discussed with the patient, nurse, patient's daughter at bedside. Note the [facility] then she went to her daughter' s home. The daughter is very pleasant and involved in care . Per daughter patient is to go to [facility] facility after discharge. DC to SNF when improves and able to tolerate food. Code Status: FULL CODE Discussed Condition With: RN AND PT AND CM Discharge Planning: Patient was DC when is accepted to SNF, patient is without diarrhea. Discussed with the CM. [facility] not [facility] patient as with C diff, they need repeat C diff neg . Cant have repeat C diff as patient without diarrhea and cant have sample. [facility] per daughter. CM is ff for other SNF Patient is accepted to snf. Discharged in fairly stable condition to follow-up with PCP and consultants as outpatient. - Time Spent with Patient Total time spent providing and/or coordinating discharge services: Greater than 30 minutes - Quality: VTE Deep Vein Thrombosis/Pulmonary Embolism Present on Admission: No Exam Vital signs: Vital Signs 04/23/18 12:00 04/23/18 12:37 04/23/18 16:00 Temperature 97.3 F L Pulse Rate 88 98 H 105 H Respiratory Rate 18 Blood Pressure 108/66 Pulse Oximetry 100 04/23/18 16:55 04/23/18 20:00 04/24/18 00:00 Temperature 97.5 F L 97.4 F L 97.4 F L Pulse Rate 46 L 97 H 95 H Respiratory Rate 18 15 18 Blood Pressure 107/64 93/54 L 96/56 L Pulse Oximetry 99 97 99 04/24/18 04:00 Temperature 97.8 F Pulse Rate 74 Respiratory Rate 18 Blood Pressure 104/69 Pulse Oximetry 99 Intake & Output 04/23/18 04/24/18 04/24/18 18:59 06:59 18:59 Intake Total 480 / 480 1030 / 1030 Output Total 500 / 500 300 / 300 Balance -20 / -20 730 / 730 Weight 96 kg Intake: Oral 480 / 480 1030 / 1030 Output: Urine 500 / 500 300 / 300 Other: # Voids 2 1 Date of Last Bowel Movement 04/24/18 # Bowel Movements 1 Results Procedures completed during hospitalization: fecal disimpaction NG tube Labs on day of discharge: Labs from last 24 hours 04/23/18 10:09 WBC Pending RBC Pending Hgb Pending Hct Pending Plt Count Pending WBC Differential Pending Differential Comment Pending - Impressions ITS Impressions Abdomen/Pelvis CT 04/11/18 15:12 CONCLUSION: Abdomen X-Ray 04/14/18 06:00 CONCLUSION: 1. Findings most consistent with improving mild adynamic ileus pattern. Discharge Plan - Discharge Disposition Patient Disposition: Discharge to SNF - Discharge Condition Condition: Stable - Discharge Order Discharge Orders: Discharge Order (Routine); Ordered 04/24/18 Ordered By: Angelia Burk - Discharge Details Anticipated Discharge Date: 04/18/18 - Physicians Team Primary Care Provider: UNKNOWN, Attending Provider: Angelia Burk Other Providers: Mary Hurt MD ; Raudel Hajia ; [facility],[place] ; Scott Guerra MD
[2018-04-24] MEDS ORDERED: Sodium Chlor 0.9% Inj 500 ML IV.SIG ONE (10:12)
[2018-04-24] MEDS ORDERED: Sod Chloride 0.9% Inj 1,000 ML IV.SIG ONE (11:33)
[2018-04-24] MEDS: Collagenase Oint 30 GM Tube TOPICAL SCH (12:41)
== END 2018-04-24 13:18 ==
LOC: NEPC 15:10 → NEDA 18:24 → HIMC 20:15 → HCIS 04-12 22:33 → N05 04-16 15:22
PROVIDERS: ADMIT Hospitalist; ATTEND Hospitalist

== ENCOUNTER 2018-04-24 20:44 | Inpatient (IN) ==
[2018-04-24] MEDS ORDERED: Sod Chloride 0.9% Inj 1,000 ML IV.SIG ONE ×2 (20:57→21:34)
[2018-04-24] MEDS ORDERED: Lidocaine PF 1% Inj 30 ML Vial INFILTRATN ONE (20:58)
[2018-04-24 21:33] LABS: ABG Base Excess -5.5 mmol/L (-2-2); ABG PCO2 19 mmHg (38-42); ABG PO2 251 mmHg (61-120)
[2018-04-24] MEDS ORDERED: Vancomycin Inj 1,000 MG in Sodium Chlor 0.9% Inj 250 ML IV.SIG ONE (21:34)
[2018-04-24 22:10] LABS: Baso # (Auto) 0.1 th/mm3 (0.0-0.2); Baso % (Auto) 0.3 % (0.0-2.0); Eos # (Auto) 0.2 th/mm3 (0.0-0.4); Eos % (Auto) 0.6 % (0.0-4.0); Hemoglobin 12.7 gm/dL (11.6-15.3); Lymph % (Auto) 2.5 % (9.0-44.0); Mean Corpuscular HGB Conc 33.4 % (32.0-36.0); Mean Corpuscular Hemoglobin 28.6 pg (27.0-34.0); Mean Corpuscular Volume 85.6 fL (80.0-100.0); Mean Platelet Volume 9.5 fL (7.0-11.0); Mono # (Auto) 0.5 th/mm3 (0.0-0.9); Mono % (Auto) 1.4 % (0.0-8.0); Neut # (Auto) 38.4 th/mm3 (1.8-7.7); Neut % (Auto) 95.2 % (16.0-70.0); Platelet Count 215 th/mm3 (150-450); Red Blood Count 4.44 mil/mm3 (4.00-5.30); Red Cell Distribution Width 18.4 % (11.6-17.2); White Blood Count 40.3 th/mm3 (4.0-11.0)
[2018-04-24 22:18] LABS: INR 1.2 Ratio; Prothrombin Time 11.8 sec (9.8-11.6)
--- NOTE | 2018-04-24 22:21 | XR ---
EXAM DATE: 04/24/2018 10:16 PM EDT AGE/SEX: 83 years / Female INDICATIONS: Post right sided central line placement. CLINICAL DATA: This is the patient's initial encounter. Patient reports that signs and symptoms have been present for 1 day and indicates a pain score of Nonresponsive. MEDICAL/SURGICAL HISTORY: Non-responsive. Non-responsive. [place] [facility] [place]. . FINDINGS: There is a right internal jugular central venous catheter which extends laterally into the subclavian vein. Lungs are clear. No pleural effusion or pneumothorax. Normal, stable heart size. CONCLUSION: The right IJ line has its tip in the subclavian vein. No pneumothorax. Electronically signed by: Shashank Cantrell MD 04/24/2018 10:19 PM EDT
--- NOTE | 2018-04-24 22:42 | ED ---
HPI General Chief Complaint: Altered Mental Status Stated Complaint: Evac/Ams Time Seen by Provider: 04/24/18 20:57 History of Present Illness HPI narrative: 83-year-old female presents to the emergency department from rehab facility by EMS transport after patient found to have altered mentation decreased blood pressure and O2 saturation of 53% on room air. Patient was recently just released from the hospital today after hospitalization for urosepsis and hyperkalemia. Patient required admission to the intensive care unit for a short stay and then was discharged from the medicine floor today with prescription for oral antibiotic therapy. Patient was found to be hypothermic reportedly according to rehab nursing notes with a temperature of 93 F upon her arrival to the nursing facility at 3 PM. Patient was noted by fire department to have room air O2 saturation of 53% as well and was placed on supplemental oxygen IV access was not able to be obtained EMS transported patient with decreased level of consciousness blood sugar 153 hypotensive with systolic pressure of 80 with peripheral cyanosis and decreased mentation. Upon patient arrival she is awake complaining of pain and asking for help O2 saturation 99% on partial rebreather mask. Patient noted to be hypotensive in atrial fibrillation with RVR. Patient has history of atrial fibrillation with left bundle branch block. Related Data Home Medications Medication Instructions Recorded Confirmed diltiazem HCl [Cartia XT] 240 mg PO DAILY 04/11/18 04/11/18 potassium 10 meq PO DAILY 04/11/18 04/11/18 Previous Rx's Medication Instructions Recorded Lactobacillus acidoph-L.bulgar 1 tab PO DAILY #30 tab 04/18/18 [Lactinex] fluconazole 100 mg PO DAILY #5 tab 04/18/18 vancomycin 250 mg PO QID 14 Days ea 04/18/18 Allergies Allergy/AdvReac Type Severity Reaction Status Date / Time No Known Allergies Allergy none Uncoded 04/17/18 13:51 Review of Systems ROS: all other systems reviewed are negative [facility] Medical History Medical History C. difficile colitis (Acute) UTI (urinary tract infection) (Acute) Atrial fibrillation (Acute) Encephalopathy due to infection (Acute) Hyperlipemia (Acute) Hypertension (Acute) Sepsis (Acute) Surgical History Surgical History H/O abdominal surgery (Acute) Social History Social History Substance History: Unable to Obtain Second Hand Smoke Exposure: No Smoking Status: Unknown if ever smoked How Often Do You Have a Drink Containing Alcohol: Unable to Obtain Recent Travel in [facility] within the Last 8 Weeks: No Recent Out of Country Travel within the Last 8 Weeks: No Immunization History Tetanus Immunization: Unable to Assess Exam Narrative Exam Narrative: GENERAL: Well-nourished, well-developed patient. Morbidly obese female with supplemental oxygen in place with peripheral cyanosis hypotension and complaining of pain. GCS 14 SKIN: Focused skin assessment warm/dry. HEAD: Normocephalic. EYES: No scleral icterus. No injection or drainage. NECK: Supple, trachea midline. No JVD or lymphadenopathy. CARDIOVASCULAR: Regular rate and rhythm without murmurs, gallops, or rubs. RESPIRATORY: Breath sounds equal bilaterally. No accessory muscle use. GASTROINTESTINAL: Abdomen soft, non-tender, nondistended. MUSCULOSKELETAL: No cyanosis, or edema. BACK: Nontender without obvious deformity. No CVA tenderness. Course Initial Documented Vital Signs Pulse Rate 106 H 04/24/18 21:05 Respiratory Rate 22 04/24/18 21:05 Blood Pressure 70/59 L 04/24/18 21:05 Pulse Oximetry 100 04/24/18 21:05 Last Documented Vital Signs Temperature 97.5 F L 04/26/18 06:26 Pulse Rate 71 04/26/18 06:26 Respiratory Rate 24 04/25/18 20:35 Blood Pressure 100/52 L 04/26/18 02:00 Pulse Oximetry 100 04/25/18 20:35 Procedures Central Line Placement Right Femoral: Time Out Performed: Yes Patient Placed on Monitor/Pulse Ox: Yes Prep: mask, gown and gloves Central Line Prep: Chlorhexidine scrub Local anesthesia used: lidocaine 1% Amount of anesthesia used (mL): 4 Ultrasound Used for Placement: Yes Central Line Lumen Inserted: triple (unsuccessful) Patient Tolerated Procedure: well Complications: arterial puncture/cannulation (catheter removeed --direct pressure held) Critical Care Time Critical Care Time: Yes Total Critical Care Time: 40 Attestation: Aggregate critical care time was 40 minutes. Time to perform other separately billable procedures was not included in the critical care time. My time did not include minutes spent treating any other patients simultaneously or on activities that did not directly contribute to the patient's treatment. The services I provided to this patient were to treat and/or prevent clinically significant deterioration that could result in: Respiratory failure cardiopulmonary arrest, I provided critical care services requiring my management, as noted below: Chart data review, documentation time, medication orders and management, vital sign assessments/reviewing monitor data, ordering and reviewing lab tests, ordering and interpreting/reviewing x-rays and diagnostic studies, care of the patient and discussion of the patient with the admitting physicians. Medical Decision Making MDM Narrative Medical decision making narrative: 83-year-old female recent discharge from hospital today after hospitalization for urosepsis presents to the emergency department with altered mentation hypotension tachycardia consistent with septic shock also to be concern for pulmonary embolism due to hypoxemia and myocardial infarction. Patient with severe difficulty obtaining peripheral IV access presents without IV or IO access. Multiple attempts at peripheral access unsuccessful unable to obtain external jugular access peripherally central line required. Differential Diagnosis Differential Diagnosis: Septic shock, myocardial infarction, electrolyte disturbance/arrhythmia, pulmonary embolism Medical Records Medical records reviewed: Yes I reviewed the patient's medical records. Lab Data Lab results reviewed: Yes I reviewed the patient's lab results. Result diagrams: 04/26/18 05:00 04/25/18 14:30 Lab Results 04/24/18 04/24/18 04/24/18 Range/Units 21:12 21:28 21:28 WBC 40.3 H (4.0-11.0) th/mm3 RBC 4.44 (4.00-5.30) mil/mm3 Hgb 12.7 (11.6-15.3) gm/dL Hct 38.0 (35.0-46.0) % MCV 85.6 (80.0-100.0) fL MCH 28.6 (27.0-34.0) pg MCHC 33.4 (32.0-36.0) % RDW 18.4 H (11.6-17.2) % Plt Count 215 (150-450) th/mm3 MPV 9.5 (7.0-11.0) fL Prelim Diff (Auto) Slide review pending Neut % (Auto) 95.2 H (16.0-70.0) % Lymph % (Auto) 2.5 L (9.0-44.0) % Yates % (Auto) 1.4 (0.0-8.0) % Eos % (Auto) 0.6 (0.0-4.0) % Baso % (Auto) 0.3 (0.0-2.0) % Neut # (Auto) 38.4 H (1.8-7.7) th/mm3 Lymph # (Auto) 1.0 (1.0-4.8) th/mm3 Yates # (Auto) 0.5 (0.0-0.9) th/mm3 Eos # (Auto) 0.2 (0.0-0.4) th/mm3 Baso # (Auto) 0.1 (0.0-0.2) th/mm3 WBC Differential Manual diff final Diff Scan Seg Neuts % (Manual) 95 H (16-70) % Band Neuts % (Manual) (0-6) % Lymphocytes % (Manual) 1 L (9-44) % Monocytes % (Manual) 4 (0-8) % Eosinophils % (Manual) (0-4) % Abs Neuts (Manual) 38.3 H (1.8-7.7) th/mm3 Differential Comment . Toxic Granulation 1+ H (None) Toxic Vacuolation Present H (None) Dohle Bodies (None) Platelet Estimate (Normal) Platelet Morphology (Normal) Ovalocytes (None) Keratocytes (None) PT 11.8 H D (9.8-11.6) sec INR 1.2 Ratio APTT 32.0 H (24.3-30.1) sec Puncture Site Left radial Patient Temperature 98.6 O2 Saturation 98 (90-100) % ABG pH 7.56 H* (7.380-7.420) ABG pCO2 19 L* (38-42) mmHg ABG pO2 251 H (61-120) mmHg ABG HCO3 17 L (22-26) mmol/L ABG O2 Content 18.3 (12.0-20.0) Vol % ABG Base Excess -5.5 L (-2-2) mmol/L ABG Methemoglobin 0.7 (0-2) % Parish Test Present Hemoglobin 12.9 (12.0-16.0) G/DL Carboxyhemoglobin 0.8 (0-4) % O2 Delivery Device Prb Liter Flow 15.00 L/M Critical Value Yes Sodium (136-145) meq/L Potassium (3.5-5.1) meq/L Chloride (98-107) meq/L Carbon Dioxide (21.0-32.0) meq/L Anion Gap (5-15) meq/L BUN (7-18) mg/dL Creatinine (0.50-1.00) mg/dL Estimated GFR (>89) mL/min POC Glucose (68-110) mg/dl Random Glucose (74-106) mg/dL Lactic Acid (0.4-2.0) mmol/L Calcium (8.5-10.1) mg/dL Prot Corrected Calcium (8.5-10.1) mg/dL Phosphorus (2.5-4.9) mg/dL Magnesium (1.5-2.5) mg/dL Total Bilirubin (0.2-1.0) mg/dL AST (15-37) U/L ALT (10-53) U/L Alkaline Phosphatase (45-117) U/L Total Creatine Kinase (26-192) U/L CK-MB (CK-2) (0.5-3.6) ng/mL Troponin I (0.02-0.05) ng/mL Total Protein (6.4-8.2) g/dL Albumin (3.4-5.0) g/dL Lipase (73-393) U/L TSH (0.358-3.740) uIU/mL Urine Color (Yellw/Straw) Urine Clarity (Clear) Urine pH (5.0-8.5) Ur Specific [place] (1.002-1.035) Urine Protein (Neg-Trace) mg/dL Urine Glucose (UA) (Negative) mg/dL Urine Ketones (Negative) mg/dL Urine Occult Blood (Negative) Urine Nitrate (Negative) Urine Bilirubin (Negative) Urine Urobilinogen (Less than 2) mg/dL Ur Leukocyte Esterase (Negative) Urine RBC (0-3) /hpf Urine WBC (0-5) /hpf Urine WBC Clumps (None) Ur Squamous Epith Cells (0-5) /hpf Ur Transition Epith Cell (None) /hpf Ur Renal Epithelial Cell (None) /hpf Urine Bacteria (None) /hpf Hyaline Casts (0-3) /lpf Granular Casts (None) /lpf Urine Mucus (Occasional) /lpf Micro UA Comment Urine Culture Comments Nasal Screen MRSA (PCR) (Negative) Stl C.difficile Tox PCR (Negative) St C. diff Tox Epid 027 (Negative) Blood Type Blood Type Recheck Antibody Screen MTS Gel Crossmatch 04/24/18 04/24/18 04/24/18 Range/Units 21:28 21:28 23:04 WBC (4.0-11.0) th/mm3 RBC (4.00-5.30) mil/mm3 Hgb (11.6-15.3) gm/dL Hct (35.0-46.0) % MCV (80.0-100.0) fL MCH (27.0-34.0) pg MCHC (32.0-36.0) % RDW (11.6-17.2) % Plt Count (150-450) th/mm3 MPV (7.0-11.0) fL Prelim Diff (Auto) Neut % (Auto) (16.0-70.0) % Lymph % (Auto) (9.0-44.0) % Yates % (Auto) (0.0-8.0) % Eos % (Auto) (0.0-4.0) % Baso % (Auto) (0.0-2.0) % Neut # (Auto) (1.8-7.7) th/mm3 Lymph # (Auto) (1.0-4.8) th/mm3 Yates # (Auto) (0.0-0.9) th/mm3 Eos # (Auto) (0.0-0.4) th/mm3 Baso # (Auto) (0.0-0.2) th/mm3 WBC Differential Diff Scan Seg Neuts % (Manual) (16-70) % Band Neuts % (Manual) (0-6) % Lymphocytes % (Manual) (9-44) % Monocytes % (Manual) (0-8) % Eosinophils % (Manual) (0-4) % Abs Neuts (Manual) (1.8-7.7) th/mm3 Differential Comment Toxic Granulation (None) Toxic Vacuolation (None) Dohle Bodies (None) Platelet Estimate (Normal) Platelet Morphology (Normal) Ovalocytes (None) Keratocytes (None) PT (9.8-11.6) sec INR Ratio APTT (24.3-30.1) sec Puncture Site Patient Temperature O2 Saturation (90-100) % ABG pH (7.380-7.420) ABG pCO2 (38-42) mmHg ABG pO2 (61-120) mmHg ABG HCO3 (22-26) mmol/L ABG O2 Content (12.0-20.0) Vol % ABG Base Excess (-2-2) mmol/L ABG Methemoglobin (0-2) % Parish Test Hemoglobin (12.0-16.0) G/DL Carboxyhemoglobin (0-4) % O2 Delivery Device Liter Flow L/M Critical Value Sodium 129 L (136-145) meq/L Potassium 4.4 (3.5-5.1) meq/L Chloride 99 (98-107) meq/L Carbon Dioxide 16.9 L (21.0-32.0) meq/L Anion Gap 13 (5-15) meq/L BUN 31 H (7-18) mg/dL Creatinine 0.76 (0.50-1.00) mg/dL Estimated GFR 73 L (>89) mL/min POC Glucose (68-110) mg/dl Random Glucose 104 (74-106) mg/dL Lactic Acid 1.5 (0.4-2.0) mmol/L Calcium 7.2 L* (8.5-10.1) mg/dL Prot Corrected Calcium 8.3 L (8.5-10.1) mg/dL Phosphorus (2.5-4.9) mg/dL Magnesium 1.7 (1.5-2.5) mg/dL Total Bilirubin 0.8 (0.2-1.0) mg/dL AST 57 H (15-37) U/L ALT 23 (10-53) U/L Alkaline Phosphatase 180 H (45-117) U/L Total Creatine Kinase 125 (26-192) U/L CK-MB (CK-2) 1.0 (0.5-3.6) ng/mL Troponin I 0.07 H (0.02-0.05) ng/mL Total Protein 5.0 L (6.4-8.2) g/dL Albumin 1.4 L (3.4-5.0) g/dL Lipase 27 L (73-393) U/L TSH (0.358-3.740) uIU/mL Urine Color Sadie (Yellw/Straw) Urine Clarity Cloudy H (Clear) Urine pH 5.0 (5.0-8.5) Ur Specific [place] 1.016 (1.002-1.035) Urine Protein Negative (Neg-Trace) mg/dL Urine Glucose (UA) Negative (Negative) mg/dL Urine Ketones Negative (Negative) mg/dL Urine Occult Blood Negative (Negative) Urine Nitrate Negative (Negative) Urine Bilirubin Negative (Negative) Urine Urobilinogen Less than 2 (Less than 2) mg/dL Ur Leukocyte Esterase Large H (Negative) Urine RBC 11 H (0-3) /hpf Urine WBC (0-5) /hpf Urine WBC Clumps Many H (None) Ur Squamous Epith Cells <1 (0-5) /hpf Ur Transition Epith Cell <1 (None) /hpf Ur Renal Epithelial Cell <1 (None) /hpf Urine Bacteria Occasional H (None) /hpf Hyaline Casts 74 (0-3) /lpf Granular Casts 4 (None) /lpf Urine Mucus Few H (Occasional) /lpf Micro UA Comment Cath-culture ind Urine Culture Comments Cath-cult indicated Nasal Screen MRSA (PCR) (Negative) Stl C.difficile Tox PCR (Negative) St C. diff Tox Epid 027 (Negative) Blood Type Blood Type Recheck Antibody Screen MTS Gel Crossmatch 04/25/18 04/25/18 04/25/18 Range/Units 00:04 02:16 03:24 WBC (4.0-11.0) th/mm3 RBC (4.00-5.30) mil/mm3 Hgb (11.6-15.3) gm/dL Hct (35.0-46.0) % MCV (80.0-100.0) fL MCH (27.0-34.0) pg MCHC (32.0-36.0) % RDW (11.6-17.2) % Plt Count (150-450) th/mm3 MPV (7.0-11.0) fL Prelim Diff (Auto) Neut % (Auto) (16.0-70.0) % Lymph % (Auto) (9.0-44.0) % Yates % (Auto) (0.0-8.0) % Eos % (Auto) (0.0-4.0) % Baso % (Auto) (0.0-2.0) % Neut # (Auto) (1.8-7.7) th/mm3 Lymph # (Auto) (1.0-4.8) th/mm3 Yates # (Auto) (0.0-0.9) th/mm3 Eos # (Auto) (0.0-0.4) th/mm3 Baso # (Auto) (0.0-0.2) th/mm3 WBC Differential Diff Scan Seg Neuts % (Manual) (16-70) % Band Neuts % (Manual) (0-6) % Lymphocytes % (Manual) (9-44) % Monocytes % (Manual) (0-8) % Eosinophils % (Manual) (0-4) % Abs Neuts (Manual) (1.8-7.7) th/mm3 Differential Comment Toxic Granulation (None) Toxic Vacuolation (None) Dohle Bodies (None) Platelet Estimate (Normal) Platelet Morphology (Normal) Ovalocytes (None) Keratocytes (None) PT 13.2 H (9.8-11.6) sec INR 1.3 Ratio APTT 47.1 H D (24.3-30.1) sec Puncture Site Patient Temperature O2 Saturation (90-100) % ABG pH (7.380-7.420) ABG pCO2 (38-42) mmHg ABG pO2 (61-120) mmHg ABG HCO3 (22-26) mmol/L ABG O2 Content (12.0-20.0) Vol % ABG Base Excess (-2-2) mmol/L ABG Methemoglobin (0-2) % Parish Test Hemoglobin (12.0-16.0) G/DL Carboxyhemoglobin (0-4) % O2 Delivery Device Liter Flow L/M Critical Value Sodium (136-145) meq/L Potassium (3.5-5.1) meq/L Chloride (98-107) meq/L Carbon Dioxide (21.0-32.0) meq/L Anion Gap (5-15) meq/L BUN (7-18) mg/dL Creatinine (0.50-1.00) mg/dL Estimated GFR (>89) mL/min POC Glucose 117 H (68-110) mg/dl Random Glucose (74-106) mg/dL Lactic Acid (0.4-2.0) mmol/L Calcium (8.5-10.1) mg/dL Prot Corrected Calcium (8.5-10.1) mg/dL Phosphorus (2.5-4.9) mg/dL Magnesium (1.5-2.5) mg/dL Total Bilirubin (0.2-1.0) mg/dL AST (15-37) U/L ALT (10-53) U/L Alkaline Phosphatase (45-117) U/L Total Creatine Kinase (26-192) U/L CK-MB (CK-2) (0.5-3.6) ng/mL Troponin I (0.02-0.05) ng/mL Total Protein (6.4-8.2) g/dL Albumin (3.4-5.0) g/dL Lipase (73-393) U/L TSH (0.358-3.740) uIU/mL Urine Color (Yellw/Straw) Urine Clarity (Clear) Urine pH (5.0-8.5) Ur Specific [place] (1.002-1.035) Urine Protein (Neg-Trace) mg/dL Urine Glucose (UA) (Negative) mg/dL Urine Ketones (Negative) mg/dL Urine Occult Blood (Negative) Urine Nitrate (Negative) Urine Bilirubin (Negative) Urine Urobilinogen (Less than 2) mg/dL Ur Leukocyte Esterase (Negative) Urine RBC (0-3) /hpf Urine WBC (0-5) /hpf Urine WBC Clumps (None) Ur Squamous Epith Cells (0-5) /hpf Ur Transition Epith Cell (None) /hpf Ur Renal Epithelial Cell (None) /hpf Urine Bacteria (None) /hpf Hyaline Casts (0-3) /lpf Granular Casts (None) /lpf Urine Mucus (Occasional) /lpf Micro UA Comment Urine Culture Comments Nasal Screen MRSA (PCR) Mrsa detected (Negative) Stl C.difficile Tox PCR (Negative) St C. diff Tox Epid 027 (Negative) Blood Type Blood Type Recheck Antibody Screen MTS Gel Crossmatch 04/25/18 04/25/18 04/25/18 Range/Units 06:12 06:55 06:55 WBC 48.5 H (4.0-11.0) th/mm3 RBC 3.31 L (4.00-5.30) mil/mm3 Hgb 9.5 L D (11.6-15.3) gm/dL Hct 28.6 L (35.0-46.0) % MCV 86.3 (80.0-100.0) fL MCH 28.6 (27.0-34.0) pg MCHC 33.1 (32.0-36.0) % RDW 18.4 H (11.6-17.2) % Plt Count 150 D (150-450) th/mm3 MPV 8.3 (7.0-11.0) fL Prelim Diff (Auto) Manual diff required Neut % (Auto) (16.0-70.0) % Lymph % (Auto) (9.0-44.0) % Yates % (Auto) (0.0-8.0) % Eos % (Auto) (0.0-4.0) % Baso % (Auto) (0.0-2.0) % Neut # (Auto) (1.8-7.7) th/mm3 Lymph # (Auto) (1.0-4.8) th/mm3 Yates # (Auto) (0.0-0.9) th/mm3 Eos # (Auto) (0.0-0.4) th/mm3 Baso # (Auto) (0.0-0.2) th/mm3 WBC Differential Manual diff final Diff Scan Seg Neuts % (Manual) 83 H (16-70) % Band Neuts % (Manual) 15 H (0-6) % Lymphocytes % (Manual) (9-44) % Monocytes % (Manual) 1 (0-8) % Eosinophils % (Manual) 1 (0-4) % Abs Neuts (Manual) 47.5 H (1.8-7.7) th/mm3 Differential Comment . Toxic Granulation (None) Toxic Vacuolation Present H (None) Dohle Bodies (None) Platelet Estimate Normal (Normal) Platelet Morphology Normal (Normal) Ovalocytes (None) Keratocytes (None) PT 18.1 H (9.8-11.6) sec INR 1.8 Ratio APTT 69.6 H D (24.3-30.1) sec Puncture Site Patient Temperature O2 Saturation (90-100) % ABG pH (7.380-7.420) ABG pCO2 (38-42) mmHg ABG pO2 (61-120) mmHg ABG HCO3 (22-26) mmol/L ABG O2 Content (12.0-20.0) Vol % ABG Base Excess (-2-2) mmol/L ABG Methemoglobin (0-2) % Parish Test Hemoglobin (12.0-16.0) G/DL Carboxyhemoglobin (0-4) % O2 Delivery Device Liter Flow L/M Critical Value Sodium 138 (136-145) meq/L Potassium 2.2 L* D (3.5-5.1) meq/L Chloride 106 (98-107) meq/L Carbon Dioxide 18.5 L (21.0-32.0) meq/L Anion Gap 14 (5-15) meq/L BUN 28 H (7-18) mg/dL Creatinine 0.51 (0.50-1.00) mg/dL Estimated GFR Greater than 89 (>89) mL/min POC Glucose (68-110) mg/dl Random Glucose 137 H (74-106) mg/dL Lactic Acid (0.4-2.0) mmol/L Calcium 7.6 L (8.5-10.1) mg/dL Prot Corrected Calcium (8.5-10.1) mg/dL Phosphorus 2.8 (2.5-4.9) mg/dL Magnesium 1.5 (1.5-2.5) mg/dL Total Bilirubin 1.3 H (0.2-1.0) mg/dL AST 20 (15-37) U/L ALT 13 (10-53) U/L Alkaline Phosphatase 109 (45-117) U/L Total Creatine Kinase (26-192) U/L CK-MB (CK-2) (0.5-3.6) ng/mL Troponin I (0.02-0.05) ng/mL Total Protein 3.7 L D (6.4-8.2) g/dL Albumin 1.7 L (3.4-5.0) g/dL Lipase (73-393) U/L TSH (0.358-3.740) uIU/mL Urine Color (Yellw/Straw) Urine Clarity (Clear) Urine pH (5.0-8.5) Ur Specific [place] (1.002-1.035) Urine Protein (Neg-Trace) mg/dL Urine Glucose (UA) (Negative) mg/dL Urine Ketones (Negative) mg/dL Urine Occult Blood (Negative) Urine Nitrate (Negative) Urine Bilirubin (Negative) Urine Urobilinogen (Less than 2) mg/dL Ur Leukocyte Esterase (Negative) Urine RBC (0-3) /hpf Urine WBC (0-5) /hpf Urine WBC Clumps (None) Ur Squamous Epith Cells (0-5) /hpf Ur Transition Epith Cell (None) /hpf Ur Renal Epithelial Cell (None) /hpf Urine Bacteria (None) /hpf Hyaline Casts (0-3) /lpf Granular Casts (None) /lpf Urine Mucus (Occasional) /lpf Micro UA Comment Urine Culture Comments Nasal Screen MRSA (PCR) (Negative) Stl C.difficile Tox PCR (Negative) St C. diff Tox Epid 027 (Negative) Blood Type Blood Type Recheck Antibody Screen MTS Gel Crossmatch 04/25/18 04/25/18 04/25/18 Range/Units 06:55 07:15 08:33 WBC (4.0-11.0) th/mm3 RBC (4.00-5.30) mil/mm3 Hgb (11.6-15.3) gm/dL Hct (35.0-46.0) % MCV (80.0-100.0) fL MCH (27.0-34.0) pg MCHC (32.0-36.0) % RDW (11.6-17.2) % Plt Count (150-450) th/mm3 MPV (7.0-11.0) fL Prelim Diff (Auto) Neut % (Auto) (16.0-70.0) % Lymph % (Auto) (9.0-44.0) % Yates % (Auto) (0.0-8.0) % Eos % (Auto) (0.0-4.0) % Baso % (Auto) (0.0-2.0) % Neut # (Auto) (1.8-7.7) th/mm3 Lymph # (Auto) (1.0-4.8) th/mm3 Yates # (Auto) (0.0-0.9) th/mm3 Eos # (Auto) (0.0-0.4) th/mm3 Baso # (Auto) (0.0-0.2) th/mm3 WBC Differential Diff Scan Seg Neuts % (Manual) (16-70) % Band Neuts % (Manual) (0-6) % Lymphocytes % (Manual) (9-44) % Monocytes % (Manual) (0-8) % Eosinophils % (Manual) (0-4) % Abs Neuts (Manual) (1.8-7.7) th/mm3 Differential Comment Toxic Granulation (None) Toxic Vacuolation (None) Dohle Bodies (None) Platelet Estimate (Normal) Platelet Morphology (Normal) Ovalocytes (None) Keratocytes (None) PT (9.8-11.6) sec INR Ratio APTT (24.3-30.1) sec Puncture Site Patient Temperature O2 Saturation (90-100) % ABG pH (7.380-7.420) ABG pCO2 (38-42) mmHg ABG pO2 (61-120) mmHg ABG HCO3 (22-26) mmol/L ABG O2 Content (12.0-20.0) Vol % ABG Base Excess (-2-2) mmol/L ABG Methemoglobin (0-2) % Parish Test Hemoglobin (12.0-16.0) G/DL Carboxyhemoglobin (0-4) % O2 Delivery Device Liter Flow L/M Critical Value Sodium (136-145) meq/L Potassium 2.1 L* (3.5-5.1) meq/L Chloride (98-107) meq/L Carbon Dioxide (21.0-32.0) meq/L Anion Gap (5-15) meq/L BUN (7-18) mg/dL Creatinine (0.50-1.00) mg/dL Estimated GFR (>89) mL/min POC Glucose (68-110) mg/dl Random Glucose (74-106) mg/dL Lactic Acid 2.0 (0.4-2.0) mmol/L Calcium (8.5-10.1) mg/dL Prot Corrected Calcium (8.5-10.1) mg/dL Phosphorus (2.5-4.9) mg/dL Magnesium (1.5-2.5) mg/dL Total Bilirubin (0.2-1.0) mg/dL AST (15-37) U/L ALT (10-53) U/L Alkaline Phosphatase (45-117) U/L Total Creatine Kinase (26-192) U/L CK-MB (CK-2) (0.5-3.6) ng/mL Troponin I (0.02-0.05) ng/mL Total Protein (6.4-8.2) g/dL Albumin (3.4-5.0) g/dL Lipase (73-393) U/L TSH (0.358-3.740) uIU/mL Urine Color (Yellw/Straw) Urine Clarity (Clear) Urine pH (5.0-8.5) Ur Specific [place] (1.002-1.035) Urine Protein (Neg-Trace) mg/dL Urine Glucose (UA) (Negative) mg/dL Urine Ketones (Negative) mg/dL Urine Occult Blood (Negative) Urine Nitrate (Negative) Urine Bilirubin (Negative) Urine Urobilinogen (Less than 2) mg/dL Ur Leukocyte Esterase (Negative) Urine RBC (0-3) /hpf Urine WBC (0-5) /hpf Urine WBC Clumps (None) Ur Squamous Epith Cells (0-5) /hpf Ur Transition Epith Cell (None) /hpf Ur Renal Epithelial Cell (None) /hpf Urine Bacteria (None) /hpf Hyaline Casts (0-3) /lpf Granular Casts (None) /lpf Urine Mucus (Occasional) /lpf Micro UA Comment Urine Culture Comments Nasal Screen MRSA (PCR) (Negative) Stl C.difficile Tox PCR Negative (Negative) St C. diff Tox Epid 027 Negative (Negative) Blood Type Blood Type Recheck Antibody Screen MTS Gel Crossmatch 04/25/18 04/25/18 04/25/18 Range/Units 10:20 14:30 14:30 WBC (4.0-11.0) th/mm3 RBC (4.00-5.30) mil/mm3 Hgb (11.6-15.3) gm/dL Hct (35.0-46.0) % MCV (80.0-100.0) fL MCH (27.0-34.0) pg MCHC (32.0-36.0) % RDW (11.6-17.2) % Plt Count (150-450) th/mm3 MPV (7.0-11.0) fL Prelim Diff (Auto) Neut % (Auto) (16.0-70.0) % Lymph % (Auto) (9.0-44.0) % [place] % (Auto) (0.0-8.0) % Eos % (Auto) (0.0-4.0) % Baso % (Auto) (0.0-2.0) % Neut # (Auto) (1.8-7.7) th/mm3 Lymph # (Auto) (1.0-4.8) th/mm3 Yates # (Auto) (0.0-0.9) th/mm3 Eos # (Auto) (0.0-0.4) th/mm3 Baso # (Auto) (0.0-0.2) th/mm3 WBC Differential Diff Scan Seg Neuts % (Manual) (16-70) % Band Neuts % (Manual) (0-6) % Lymphocytes % (Manual) (9-44) % Monocytes % (Manual) (0-8) % Eosinophils % (Manual) (0-4) % Abs Neuts (Manual) (1.8-7.7) th/mm3 Differential Comment Toxic Granulation (None) Toxic Vacuolation (None) Dohle Bodies (None) Platelet Estimate (Normal) Platelet Morphology (Normal) Ovalocytes (None) Keratocytes (None) PT (9.8-11.6) sec INR Ratio APTT (24.3-30.1) sec Puncture Site Patient Temperature O2 Saturation (90-100) % ABG pH (7.380-7.420) ABG pCO2 (38-42) mmHg ABG pO2 (61-120) mmHg ABG HCO3 (22-26) mmol/L ABG O2 Content (12.0-20.0) Vol % ABG Base Excess (-2-2) mmol/L ABG Methemoglobin (0-2) % Parish Test Hemoglobin (12.0-16.0) G/DL Carboxyhemoglobin (0-4) % O2 Delivery Device Liter Flow L/M Critical Value Sodium 138 (136-145) meq/L Potassium 2.3 L* (3.5-5.1) meq/L Chloride 108 H (98-107) meq/L Carbon Dioxide 17.2 L (21.0-32.0) meq/L Anion Gap 13 (5-15) meq/L BUN 24 H (7-18) mg/dL Creatinine 0.67 (0.50-1.00) mg/dL Estimated GFR 84 L (>89) mL/min POC Glucose (68-110) mg/dl Random Glucose 208 H (74-106) mg/dL Lactic Acid 2.1 H (0.4-2.0) mmol/L Calcium 6.9 L* (8.5-10.1) mg/dL Prot Corrected Calcium 8.6 (8.5-10.1) mg/dL Phosphorus 2.2 L (2.5-4.9) mg/dL Magnesium 1.5 (1.5-2.5) mg/dL Total Bilirubin (0.2-1.0) mg/dL AST (15-37) U/L ALT (10-53) U/L Alkaline Phosphatase (45-117) U/L Total Creatine Kinase (26-192) U/L CK-MB (CK-2) (0.5-3.6) ng/mL Troponin I (0.02-0.05) ng/mL Total Protein 4.0 L (6.4-8.2) g/dL Albumin (3.4-5.0) g/dL Lipase (73-393) U/L TSH (0.358-3.740) uIU/mL Urine Color (Yellw/Straw) Urine Clarity (Clear) Urine pH (5.0-8.5) Ur Specific [place] (1.002-1.035) Urine Protein (Neg-Trace) mg/dL Urine Glucose (UA) (Negative) mg/dL Urine Ketones (Negative) mg/dL Urine Occult Blood (Negative) Urine Nitrate (Negative) Urine Bilirubin (Negative) Urine Urobilinogen (Less than 2) mg/dL Ur Leukocyte Esterase (Negative) Urine RBC (0-3) /hpf Urine WBC (0-5) /hpf Urine WBC Clumps (None) Ur Squamous Epith Cells (0-5) /hpf Ur Transition Epith Cell (None) /hpf Ur Renal Epithelial Cell (None) /hpf Urine Bacteria (None) /hpf Hyaline Casts (0-3) /lpf Granular Casts (None) /lpf Urine Mucus (Occasional) /lpf Micro UA Comment Urine Culture Comments Nasal Screen MRSA (PCR) (Negative) Stl C.difficile Tox PCR (Negative) St C. diff Tox Epid 027 (Negative) Blood Type A Positive Blood Type Recheck Required Antibody Screen Negative MTS Gel Crossmatch 04/25/18 04/25/18 04/26/18 Range/Units 18:35 22:15 00:15 WBC (4.0-11.0) th/mm3 RBC (4.00-5.30) mil/mm3 Hgb (11.6-15.3) gm/dL Hct (35.0-46.0) % MCV (80.0-100.0) fL MCH (27.0-34.0) pg MCHC (32.0-36.0) % RDW (11.6-17.2) % Plt Count (150-450) th/mm3 MPV (7.0-11.0) fL Prelim Diff (Auto) Neut % (Auto) (16.0-70.0) % Lymph % (Auto) (9.0-44.0) % Yates % (Auto) (0.0-8.0) % Eos % (Auto) (0.0-4.0) % Baso % (Auto) (0.0-2.0) % Neut # (Auto) (1.8-7.7) th/mm3 Lymph # (Auto) (1.0-4.8) th/mm3 Yates # (Auto) (0.0-0.9) th/mm3 Eos # (Auto) (0.0-0.4) th/mm3 Baso # (Auto) (0.0-0.2) th/mm3 WBC Differential Diff Scan Seg Neuts % (Manual) (16-70) % Band Neuts % (Manual) (0-6) % Lymphocytes % (Manual) (9-44) % Monocytes % (Manual) (0-8) % Eosinophils % (Manual) (0-4) % Abs Neuts (Manual) (1.8-7.7) th/mm3 Differential Comment Toxic Granulation (None) Toxic Vacuolation (None) Dohle Bodies (None) Platelet Estimate (Normal) Platelet Morphology (Normal) Ovalocytes (None) Keratocytes (None) PT (9.8-11.6) sec INR Ratio APTT Greater than 277.5 H* 191.4 H* D 88.4 H D (24.3-30.1) sec Puncture Site Patient Temperature O2 Saturation (90-100) % ABG pH (7.380-7.420) ABG pCO2 (38-42) mmHg ABG pO2 (61-120) mmHg ABG HCO3 (22-26) mmol/L ABG O2 Content (12.0-20.0) Vol % ABG Base Excess (-2-2) mmol/L ABG Methemoglobin (0-2) % Parish Test Hemoglobin (12.0-16.0) G/DL Carboxyhemoglobin (0-4) % O2 Delivery Device Liter Flow L/M Critical Value Sodium (136-145) meq/L Potassium (3.5-5.1) meq/L Chloride (98-107) meq/L Carbon Dioxide (21.0-32.0) meq/L Anion Gap (5-15) meq/L BUN (7-18) mg/dL Creatinine (0.50-1.00) mg/dL Estimated GFR (>89) mL/min POC Glucose (68-110) mg/dl Random Glucose (74-106) mg/dL Lactic Acid (0.4-2.0) mmol/L Calcium (8.5-10.1) mg/dL Prot Corrected Calcium (8.5-10.1) mg/dL Phosphorus (2.5-4.9) mg/dL Magnesium (1.5-2.5) mg/dL Total Bilirubin (0.2-1.0) mg/dL AST (15-37) U/L ALT (10-53) U/L Alkaline Phosphatase (45-117) U/L Total Creatine Kinase (26-192) U/L CK-MB (CK-2) (0.5-3.6) ng/mL Troponin I (0.02-0.05) ng/mL Total Protein (6.4-8.2) g/dL Albumin (3.4-5.0) g/dL Lipase (73-393) U/L TSH (0.358-3.740) uIU/mL Urine Color (Yellw/Straw) Urine Clarity (Clear) Urine pH (5.0-8.5) Ur Specific [place] (1.002-1.035) Urine Protein (Neg-Trace) mg/dL Urine Glucose (UA) (Negative) mg/dL Urine Ketones (Negative) mg/dL Urine Occult Blood (Negative) Urine Nitrate (Negative) Urine Bilirubin (Negative) Urine Urobilinogen (Less than 2) mg/dL Ur Leukocyte Esterase (Negative) Urine RBC (0-3) /hpf Urine WBC (0-5) /hpf Urine WBC Clumps (None) Ur Squamous Epith Cells (0-5) /hpf Ur Transition Epith Cell (None) /hpf Ur Renal Epithelial Cell (None) /hpf Urine Bacteria (None) /hpf Hyaline Casts (0-3) /lpf Granular Casts (None) /lpf Urine Mucus (Occasional) /lpf Micro UA Comment Urine Culture Comments Nasal Screen MRSA (PCR) (Negative) Stl C.difficile Tox PCR (Negative) St C. diff Tox Epid 027 (Negative) Blood Type Blood Type Recheck Antibody Screen MTS Gel Crossmatch 04/26/18 04/26/18 04/26/18 Range/Units 04:15 04:15 04:20 WBC 22.7 H D (4.0-11.0) th/mm3 RBC 1.76 L (4.00-5.30) mil/mm3 Hgb 4.9 L* D (11.6-15.3) gm/dL Hct 15.1 L* (35.0-46.0) % MCV 85.6 (80.0-100.0) fL MCH 28.1 (27.0-34.0) pg MCHC 32.9 (32.0-36.0) % RDW 18.9 H (11.6-17.2) % Plt Count 115 L (150-450) th/mm3 MPV 8.3 (7.0-11.0) fL Prelim Diff (Auto) Neut % (Auto) (16.0-70.0) % Lymph % (Auto) (9.0-44.0) % Yates % (Auto) (0.0-8.0) % Eos % (Auto) (0.0-4.0) % Baso % (Auto) (0.0-2.0) % Neut # (Auto) (1.8-7.7) th/mm3 Lymph # (Auto) (1.0-4.8) th/mm3 Yates # (Auto) (0.0-0.9) th/mm3 Eos # (Auto) (0.0-0.4) th/mm3 Baso # (Auto) (0.0-0.2) th/mm3 WBC Differential Diff Scan Seg Neuts % (Manual) (16-70) % Band Neuts % (Manual) (0-6) % Lymphocytes % (Manual) (9-44) % Monocytes % (Manual) (0-8) % Eosinophils % (Manual) (0-4) % Abs Neuts (Manual) (1.8-7.7) th/mm3 Differential Comment Toxic Granulation (None) Toxic Vacuolation (None) Dohle Bodies (None) Platelet Estimate (Normal) Platelet Morphology (Normal) Ovalocytes (None) Keratocytes (None) PT (9.8-11.6) sec INR Ratio APTT (24.3-30.1) sec Puncture Site Patient Temperature O2 Saturation (90-100) % ABG pH (7.380-7.420) ABG pCO2 (38-42) mmHg ABG pO2 (61-120) mmHg ABG HCO3 (22-26) mmol/L ABG O2 Content (12.0-20.0) Vol % ABG Base Excess (-2-2) mmol/L ABG Methemoglobin (0-2) % Parish Test Hemoglobin (12.0-16.0) G/DL Carboxyhemoglobin (0-4) % O2 Delivery Device Liter Flow L/M Critical Value Sodium (136-145) meq/L Potassium (3.5-5.1) meq/L Chloride (98-107) meq/L Carbon Dioxide (21.0-32.0) meq/L Anion Gap (5-15) meq/L BUN (7-18) mg/dL Creatinine (0.50-1.00) mg/dL Estimated GFR (>89) mL/min POC Glucose (68-110) mg/dl Random Glucose (74-106) mg/dL Lactic Acid 1.1 (0.4-2.0) mmol/L Calcium (8.5-10.1) mg/dL Prot Corrected Calcium (8.5-10.1) mg/dL Phosphorus (2.5-4.9) mg/dL Magnesium (1.5-2.5) mg/dL Total Bilirubin (0.2-1.0) mg/dL AST (15-37) U/L ALT (10-53) U/L Alkaline Phosphatase (45-117) U/L Total Creatine Kinase (26-192) U/L CK-MB (CK-2) (0.5-3.6) ng/mL Troponin I (0.02-0.05) ng/mL Total Protein (6.4-8.2) g/dL Albumin (3.4-5.0) g/dL Lipase (73-393) U/L TSH 1.220 (0.358-3.740) uIU/mL Urine Color (Yellw/Straw) Urine Clarity (Clear) Urine pH (5.0-8.5) Ur Specific [place] (1.002-1.035) Urine Protein (Neg-Trace) mg/dL Urine Glucose (UA) (Negative) mg/dL Urine Ketones (Negative) mg/dL Urine Occult Blood (Negative) Urine Nitrate (Negative) Urine Bilirubin (Negative) Urine Urobilinogen (Less than 2) mg/dL Ur Leukocyte Esterase (Negative) Urine RBC (0-3) /hpf Urine WBC (0-5) /hpf Urine WBC Clumps (None) Ur Squamous Epith Cells (0-5) /hpf Ur Transition Epith Cell (None) /hpf Ur Renal Epithelial Cell (None) /hpf Urine Bacteria (None) /hpf Hyaline Casts (0-3) /lpf Granular Casts (None) /lpf Urine Mucus (Occasional) /lpf Micro UA Comment Urine Culture Comments Nasal Screen MRSA (PCR) (Negative) Stl C.difficile Tox PCR (Negative) St C. diff Tox Epid 027 (Negative) Blood Type Blood Type Recheck Antibody Screen MTS Gel Crossmatch 04/26/18 04/26/18 Range/Units 05:00 05:22 WBC 22.3 H (4.0-11.0) th/mm3 RBC 1.77 L (4.00-5.30) mil/mm3 Hgb 4.9 L* (11.6-15.3) gm/dL Hct 15.3 L* (35.0-46.0) % MCV 86.5 (80.0-100.0) fL MCH 27.9 (27.0-34.0) pg MCHC 32.2 (32.0-36.0) % RDW 19.1 H (11.6-17.2) % Plt Count 121 L (150-450) th/mm3 MPV 8.5 (7.0-11.0) fL Prelim Diff (Auto) Slide review pending Neut % (Auto) 88.5 H (16.0-70.0) % Lymph % (Auto) 7.8 L (9.0-44.0) % Yates % (Auto) 3.5 (0.0-8.0) % Eos % (Auto) 0.1 (0.0-4.0) % Baso % (Auto) 0.1 (0.0-2.0) % Neut # (Auto) 19.8 H (1.8-7.7) th/mm3 Lymph # (Auto) 1.7 (1.0-4.8) th/mm3 Yates # (Auto) 0.8 (0.0-0.9) th/mm3 Eos # (Auto) 0.0 (0.0-0.4) th/mm3 Baso # (Auto) 0.0 (0.0-0.2) th/mm3 WBC Differential . Diff Scan Auto diff confirmed Seg Neuts % (Manual) (16-70) % Band Neuts % (Manual) (0-6) % Lymphocytes % (Manual) (9-44) % Monocytes % (Manual) (0-8) % Eosinophils % (Manual) (0-4) % Abs Neuts (Manual) (1.8-7.7) th/mm3 Differential Comment . Toxic Granulation (None) Toxic Vacuolation (None) Dohle Bodies Present H (None) Platelet Estimate Low L (Normal) Platelet Morphology Normal (Normal) Ovalocytes 1+ H (None) Keratocytes Occ H (None) PT (9.8-11.6) sec INR Ratio APTT (24.3-30.1) sec Puncture Site Patient Temperature O2 Saturation (90-100) % ABG pH (7.380-7.420) ABG pCO2 (38-42) mmHg ABG pO2 (61-120) mmHg ABG HCO3 (22-26) mmol/L ABG O2 Content (12.0-20.0) Vol % ABG Base Excess (-2-2) mmol/L ABG Methemoglobin (0-2) % Parish Test Hemoglobin (12.0-16.0) G/DL Carboxyhemoglobin (0-4) % O2 Delivery Device Liter Flow L/M Critical Value Sodium (136-145) meq/L Potassium (3.5-5.1) meq/L Chloride (98-107) meq/L Carbon Dioxide (21.0-32.0) meq/L Anion Gap (5-15) meq/L BUN (7-18) mg/dL Creatinine (0.50-1.00) mg/dL Estimated GFR (>89) mL/min POC Glucose (68-110) mg/dl Random Glucose (74-106) mg/dL Lactic Acid (0.4-2.0) mmol/L Calcium (8.5-10.1) mg/dL Prot Corrected Calcium (8.5-10.1) mg/dL Phosphorus (2.5-4.9) mg/dL Magnesium (1.5-2.5) mg/dL Total Bilirubin (0.2-1.0) mg/dL AST (15-37) U/L ALT (10-53) U/L Alkaline Phosphatase (45-117) U/L Total Creatine Kinase (26-192) U/L CK-MB (CK-2) (0.5-3.6) ng/mL Troponin I (0.02-0.05) ng/mL Total Protein (6.4-8.2) g/dL Albumin (3.4-5.0) g/dL Lipase (73-393) U/L TSH (0.358-3.740) uIU/mL Urine Color (Yellw/Straw) Urine Clarity (Clear) Urine pH (5.0-8.5) Ur Specific [place] (1.002-1.035) Urine Protein (Neg-Trace) mg/dL Urine Glucose (UA) (Negative) mg/dL Urine Ketones (Negative) mg/dL Urine Occult Blood (Negative) Urine Nitrate (Negative) Urine Bilirubin (Negative) Urine Urobilinogen (Less than 2) mg/dL Ur Leukocyte Esterase (Negative) Urine RBC (0-3) /hpf Urine WBC (0-5) /hpf Urine WBC Clumps (None) Ur Squamous Epith Cells (0-5) /hpf Ur Transition Epith Cell (None) /hpf Ur Renal Epithelial Cell (None) /hpf Urine Bacteria (None) /hpf Hyaline Casts (0-3) /lpf Granular Casts (None) /lpf Urine Mucus (Occasional) /lpf Micro UA Comment Urine Culture Comments Nasal Screen MRSA (PCR) (Negative) Stl C.difficile Tox PCR (Negative) St C. diff Tox Epid 027 (Negative) Blood Type Blood Type Recheck Antibody Screen MTS Gel Crossmatch See Detail Imaging Data Radiologist's impression: Chest X-Ray 04/24/18 20:58 CONCLUSION: The right IJ line has its tip in the subclavian vein. No pneumothorax. Abdomen/Pelvis CT 04/25/18 00:00 CONCLUSION: 1. There are moderately distended air and fluid-filled loops of large bowel noted diffusely. 2. Body wall edema. 3. No focal fluid collections are identified to suggest abscess. Chest CTA 04/25/18 00:00 CONCLUSION: 1. The examination is positive for pulmonary embolus on the left. 2. Left thyroid nodule. 3. Small left pleural effusion. 4. Dilatation of the main pulmonary artery. Chest X-Ray 04/25/18 09:04 CONCLUSION: 1. Tip of the left subclavian central line low within the right atrium. No pneumothorax. 2. Right internal jugular vein central venous line unchanged. Abdomen X-Ray 04/26/18 07:00 CONCLUSION: Persistent colonic distention. ECG Data EKG Prior to Arrival: Yes Attestation: I personally reviewed and interpreted this ECG as follows: Prior ECG tracings: available for review Interpretation: EKG: Atrial fibrillation with RVR rate 130 with left bundle branch block this is confirmed on previous EKGs. Discharge Plan Discharge Disposition Patient Disposition: 30 Still Patient Discharge Condition Condition: Fair Discharge Details Diagnosis: Septic shock Physicians Team ED Provider: Altagracia Mcginnis Primary Care Provider: UNKNOWN, Attending Provider: Fausto Lovelace Other Providers: Raissa Haji ; Sheila Cardozo ; Danita Rocha ; Zachary Langston ; Rommel Castro Status ED Status: Left Department Discharge Information Discharge Date/Time: 04/24/18 23:30
[2018-04-24 22:46] LABS: Lymphocytes 1 % (9-44); Monocytes 4 % (0-8); Toxic Granulation 1+; Toxic Vacuolation Present
[2018-04-24 22:47] LABS: Alanine Aminotransferase 23 U/L (10-53); Albumin 1.4 g/dL (3.4-5.0); Alkaline Phosphatase 180 U/L (45-117); Anion Gap 13 meq/L (5-15); Aspartate Aminotransferase 57 U/L (15-37); Blood Urea Nitrogen 31 mg/dL (7-18); Calcium 7.2 mg/dL (8.5-10.1); Carbon Dioxide 16.9 meq/L (21.0-32.0); Chloride 99 meq/L (98-107); Creatine Kinase 125 U/L (26-192); Glomerular Filtration Rate 73 mL/min (>89); Glucose,Random 104 mg/dL (74-106); Lipase 27 U/L (73-393); Magnesium 1.7 mg/dL (1.5-2.5); Sodium 129 meq/L (136-145); Troponin I 0.07 ng/mL (0.02-0.05)
[2018-04-24 22:50] LABS: Potassium 4.4 meq/L (3.5-5.1)
--- NOTE | 2018-04-24 23:02 | P.HPCC ---
History of Present Illness Primary Care Physician: UNKNOWN History of Present Illness: 83-year-old female presents from rehab facility after patient found to have altered mentation decreased blood pressure and O2 saturation of 53% on room air. Patient was just released from the hospital today after hospitalization for urosepsis, hyperkalemia and Clostridium difficile colitis. Patient was found to be hypothermic reportedly according to rehab nursing notes with a temperature of 93F upon her arrival to the nursing facility at 3 PM. Patient was noted by fire department to have room air O2 saturation of 53% as well and was placed on supplemental oxygen IV access was not able to be obtained EMS transported patient with decreased level of consciousness blood sugar 153 hypotensive with systolic pressure of 80 with peripheral cyanosis and decreased mentation. Upon patient arrival she is awake complaining of pain and asking for help O2 saturation 99% on partial rebreather mask. Patient has history of atrial fibrillation with left bundle branch block. The CT of the chest shows positive study for pulmonary embolism with a dilation of the main pulmonary artery. Inpatient Certification: I certify that the inpatient services were ordered in accordance with Medicare regulations governing the order. This includes certification that hospital inpatient services are reasonable and necessary and in the case of services not specified as inpatient-only under 42 CFR 419.22(n), that they are appropriately provided as inpatient services in accordance to with the 2-midnight benchmark under 43 CFR 412.3(e) Review of Systems unobtainable due to mental condition PMFSH - History History Provided By: [employer] / EMT - Medical History Medical History: Medical History (Last Reviewed 04/24/18 @ 22:49 by Altagracia Mcginnis MD) Atrial fibrillation Encephalopathy due to infection Hyperlipemia Hypertension Sepsis - Surgical History Surgical History: Surgical History (Last Reviewed 04/24/18 @ 22:49 by Altagracia Mcginnis MD) H/O abdominal surgery - Tobacco History Second Hand Smoke Exposure: No Smoking Status: Unknown if ever smoked - Alcohol History How Often Do You Have a Drink Containing Alcohol: Unable to Obtain - Substance Use History Substance History: Unable to Obtain - Travel History Recent Travel in the [place] Within the Last 8 Weeks: No Recent Travel Out of the Country Within the Last 8 Weeks: No - Immunization History Tetanus Immunization: Unable to Assess Medications and Allergies Active Medications: Active Medications Norepinephrine Bitartrate (Levophed-Dextrose 4 Mg/250 Ml Drip) 4 mg in 250 mls @ 7.5 mls/hr IV.SIG TITRATE PRN; Protocol PRN Reason: Per Protocol Last Titration: 04/24/18 22:51 Dose: 3 mcg/min, 11.25 mls/hr Terbutaline Sulfate (Brethine Inj) 1 mg SQ UNSCH PRN PRN Reason: For Extravasation Active Medications Acetaminophen (Tylenol) 650 mg PO Q6H PRN PRN Reason: PAIN 1-10 AND/OR FEVER >101F Al Hydroxide/Mg Hydroxide (Milk Of [place] Mata) 30 ml PO Q12H PRN PRN Reason: Mild Constipation Albuterol (Duoneb Neb (Prn)) 1 ampul NEB Q2HR NEB PRN PRN Reason: WHEEZING Bisacodyl (Dulcolax Supp) 10 mg RECTAL DAILY PRN PRN Reason: SEVERE CONSITIPATION Chlorhexidine Gluconate (Chlorhexidine 2% Cloth) 3 pack TOPICAL DAILY@0400 AMELIE Stop: 04/30/18 03:59 Chlorhexidine Gluconate (Chlorhexidine 2% Cloth) 3 pack TOPICAL DAILY@0400 PRN PRN Reason: Extra cloth needed Stop: 04/30/18 03:59 Famotidine (Pepcid Pf Inj) 20 mg IV.PUSH Q12HR AMELIE Norepinephrine Bitartrate (Levophed-Dextrose 4 Mg/250 Ml Drip) 4 mg in 250 mls @ 7.5 mls/hr IV.SIG TITRATE PRN; Protocol PRN Reason: Per Protocol Last Titration: 04/24/18 23:16 Dose: 4 mcg/min, 15 mls/hr Sodium Chloride (Ns Inj) 1,000 mls @ 184 mls/hr IV.CONT .Q5H27M AMELIE Metronidazole/Sodium Chloride (Flagyl 500 Mg Inj) 100 mls @ 100 mls/hr IV.SIG Q6H AMELIE Phenylephrine HCl 40 mg/ (Sodium Chloride) 500 mls @ 30 mls/hr IV.CONT TITRATE PRN; Protocol PRN Reason: See Protocol Albumin Human (Alburx 5% Inj) 500 mls @ 250 mls/hr IV.SIG Q6H AMELIE Stop: 04/25/18 21:59 Heparin Sodium/Dextrose (Heparin/D5w 25,000 U/250 Ml) 25,000 unit in 250 mls @ 0 mls/hr IV.CONT TITRATE PRN; Protocol PRN Reason: Per Protocol Alteplase, Recombinant 100 mg/ (Sterile Water) 100 mls @ 50 mls/hr IV.SIG ONCE ONE Stop: 04/25/18 03:59 Lactulose (Lactulose Liq) 30 ml PO DAILY PRN PRN Reason: SEVERE CONSITIPATION Metoclopramide HCl (Reglan Inj) 5 mg IV.PUSH Q6HR AMELIE; Protocol Morphine Sulfate (Morphine Inj) 2 mg IV.PUSH Q2H PRN PRN Reason: PAIN SCALE 6 TO 10 Ondansetron HCl (Zofran Inj) 4 mg IV.PUSH Q6H PRN PRN Reason: NAUSEA OR VOMITING Senna/Docusate Sodium (Jeanette-Colace) 1 tab PO BID [facility] Sennosides (Senokot) 17.2 mg PO Q12H PRN PRN Reason: Moderate Constipation Sodium Chloride (Ns Flush) 2 ml IV.FLUSH BID [facility] Sodium Chloride (Ns Flush) 2 ml IV.FLUSH PRN PRN PRN Reason: FLUSH AFTER USING IV ACCESS Terbutaline Sulfate (Brethine Inj) 1 mg SQ UNSCH PRN PRN Reason: For Extravasation Terbutaline Sulfate (Brethine Inj) 1 mg SQ UNSCH PRN PRN Reason: For Extravasation Vancomycin HCl (Vancomycin Po) 250 mg PO QID [facility] Allergies Allergy/AdvReac Type Severity Reaction Status Date / Time No Known Allergies Allergy none Uncoded 04/17/18 13:51 Home Medications Medication Instructions Recorded Confirmed Type diltiazem HCl [Cartia XT] 240 mg PO DAILY 04/11/18 04/11/18 History potassium 10 meq PO DAILY 04/11/18 04/11/18 History Results - Labs CBC & Chem 7: 04/24/18 21:28 04/24/18 21:28 Labs: Short CBC 04/24/18 Range/Units 21:28 WBC 40.3 H (4.0-11.0) th/mm3 Hgb 12.7 (11.6-15.3) gm/dL Hct 38.0 (35.0-46.0) % Plt Count 215 (150-450) th/mm3 BMP 04/24/18 21:28 Sodium 129 L Potassium 4.4 Chloride 99 Carbon Dioxide 16.9 L BUN 31 H Creatinine 0.76 Calcium 7.2 L* Cardiac Enzymes 04/24/18 Range/Units 21:28 Total Creatine Kinase 125 (26-192) U/L Troponin I 0.07 H (0.02-0.05) ng/mL Liver Function 04/24/18 Range/Units 21:28 Total Bilirubin 0.8 (0.2-1.0) mg/dL AST 57 H (15-37) U/L ALT 23 (10-53) U/L Alkaline Phosphatase 180 H (45-117) U/L Albumin 1.4 L (3.4-5.0) g/dL - Imaging Impressions Chest X-Ray 04/24/18 20:58 CONCLUSION: The right IJ line has its tip in the subclavian vein. No pneumothorax. Impressions Chest X-Ray 04/24/18 20:58 CONCLUSION: The right IJ line has its tip in the subclavian vein. No pneumothorax. Abdomen/Pelvis CT 04/25/18 00:00 CONCLUSION: 1. There are moderately distended air and fluid-filled loops of large bowel noted diffusely. 2. Body wall edema. 3. No focal fluid collections are identified to suggest abscess. Chest CTA 04/25/18 00:00 CONCLUSION: 1. The examination is positive for pulmonary embolus on the left. 2. Left thyroid nodule. 3. Small left pleural effusion. 4. Dilatation of the main pulmonary artery. Exam Vital signs: Vital Signs 04/24/18 21:05 04/24/18 21:22 04/24/18 21:42 Pulse Rate 106 H 132 H 109 H Respiratory Rate 22 21 22 Blood Pressure 70/59 L 86/50 L 90/58 L Pulse Oximetry 100 97 97 04/24/18 22:02 04/24/18 22:06 Pulse Rate 108 H 137 H Respiratory Rate Blood Pressure 92/52 L 85/57 L Pulse Oximetry Intake & Output 04/24/18 04/24/18 04/25/18 06:59 18:59 06:59 Weight 96 kg - Constitutional moderate distress - Routine HEENT Exam Head: Present: atraumatic Eye: Present: PERRL ENT: Present: mucous membranes dry - Routine Neck Exam Present: supple, full ROM. Absent: JVD, carotid bruit - Routine Respiratory Exam Absent: rhonchi, stridor, wheezes - Routine Cardiovascular Exam Present: RRR, S1, S2, irregular rhythm, irregularly irregular - Routine Abdominal Exam Present: soft, normoactive bowel sounds. Absent: tenderness, distended - Routine Extremities Exam Present: edema. Absent: cyanosis, clubbing - Routine Skin Exam Present: pallor. Absent: rash - Routine Neurological Exam Present: alert, altered mental status Septic Shock Reassessment Septic shock perfusion: reassessment completed Caprini VTE Risk Assessment Caprini VTE Risk Assessment: Moderate/High Risk (score >= 2) Caprini Risk Assessment Model: Point Value = 1 Point Value = 2 Point Value = 3 Point Value = 5 Age 41-60 Minor surgery BMI > 25 kg/m2 Swollen legs Varicose veins or History of unexplained or recurrent spontaneous Oral contraceptives or hormone replacement Sepsis (< 1 month) Serious lung disease, including pneumonia (< 1 month) Abnormal pulmonary function Acute myocardial infarction Congestive heart failure (< 1 month) History of inflammatory bowel disease Medical patient at bed rest Age 61-74 Arthroscopic surgery Major open surgery (> 45 min) Laparoscopic surgery (> 45 min) Malignancy Confined to bed (> 72 hours) Immobilizing plaster cast Central venous access Age >= 75 History of VTE Family history of VTE Factor V Leiden Prothrombin 36061M Lupus anticoagulant Anticardiolipin antibodies Elevated serum homocysteine Heparin-induced thrombocytopenia Other congenital or acquired thrombophilia Stroke (< 1 month) Elective arthroplasty Hip, pelvis, or leg fracture Acute spinal cord injury (< 1 month) Prophylaxis Regimen: Total Risk Factor Score Risk Level Prophylaxis Regimen 0-1 Low Early ambulation 2 Moderate Order ONE of the following: *Sequential Compression Device (SCD) *Heparin 5000 units SQ BID 3-4 Higher Order ONE of the following medications: *Heparin 5000 units SQ TID *Enoxaparin/Lovenox 40 mg SQ daily (WT < 150 kg, CrCl > 30 mL/min) *Enoxaparin/Lovenox 30 mg SQ daily (WT < 150 kg, CrCl > 10-29 mL/min) *Enoxaparin/Lovenox 30 mg SQ BID (WT < 150 kg, CrCl > 30 mL/min) AND/OR *Sequential Compression Device (SCD) 5 or more Highest Order ONE of the following medications: *Heparin 5000 units SQ TID (Preferred with Epidurals) *Enoxaparin/Lovenox 40 mg SQ daily (WT < 150 kg, CrCl > 30 mL/min) *Enoxaparin/Lovenox 30 mg SQ daily (WT < 150 kg, CrCl > 10-29 mL/min) *Enoxaparin/Lovenox 30 mg SQ BID (WT < 150 kg, CrCl > 30 mL/min) AND *Sequential Compression Device (SCD) Assessment and Plan - Assessment and Plan Plan: Sepsis/SIRS -Known C. difficile colitis -WBC>40 continue p.o. vancomycin/IV Flagyl -Received broad-spectrum antibiotics in the emergency department -Follow-up blood cultures -No infiltrate on CT chest -We will hold further antibiotics except of treatment for C. difficile for now -Infectious disease consultation Pulmonary embolism -Patient hemodynamically unstable -TPA infusion 100 mg over 2 hours -Followed by heparin infusion per pharmacy dosing Altered mental status -Due to above -CT head negative -Supportive care -Neuro checks per unit protocol A. fib with RVR -Heparin drip anticoagulation -Hold diltiazem due to hypotension -Amiodarone DVT GI prophylaxis -Teds SCDs -Heparin drip -IV Pepcid Critical Care: The total critical care time was 35 minutes. Time to perform other separately billable procedures was not included in the critical care time.
[2018-04-24] MEDS ORDERED: Calcium Chloride Inj 2 GM in Sodium Chlor 0.9% Inj 100 ML IV.SIG ONE (23:05)
[2018-04-24] MEDS ORDERED: Bisacodyl 10 MG Supp RECTAL PRN (23:12)
[2018-04-24] MEDS ORDERED: Acetaminophen 325 MG Tablet PO PRN (23:12)
[2018-04-24 23:26] LABS: Bacteria,Urine Occasional /hpf; Bilirubin,Urine Negative (Negative); Clarity,Urine Cloudy (Clear); Color,Urine Amber (Yellw/Straw); Glucose,Urine (UA) Negative (Negative); Hyaline Casts,Urine 74 /lpf (0-3); Leukocyte Esterase,Urine Large (Negative); Mucus,Urine Few /lpf (Occasional); Nitrite,Urine Negative (Negative); Renal Epithelial Cells,Urine <1 /hpf; Specific Gravity,Urine 1.016 (1.002-1.035); Squamous Epithelial Cell,Urine <1 /hpf (0-5); Transitional Epi Cells,Urine <1 /hpf
--- NOTE | 2018-04-24 23:39 | ED ---
Procedures Central Line Placement Right Femoral: Time Out Performed: No Patient Placed on Monitor/Pulse Ox: Yes MD Prep: mask, gown and gloves Central Line Prep: Chlorhexidine scrub Local anesthesia used: lidocaine 1% Amount of anesthesia used (mL): 3 Ultrasound Used for Placement: Yes Complications: other Additional Comments: Patient is incredibly difficult IV 2/2 what appears to be intravascular depletion. 4 attempts were made in left femoral, flashes were obtained but J wire would not feed. Procedure terminated. Right IJ: Time Out Performed: No Patient Placed on Monitor/Pulse Ox: Yes MD Prep: mask, gown and gloves Central Line Prep: Chlorhexidine scrub Local anesthesia used: lidocaine 1% Amount of anesthesia used (mL): 1 Ultrasound Used for Placement: Yes Central Line Lumen Inserted: triple Post Procedure: sutured in place and sterile dressing applied Post Procedure X-Ray: no pneumothorax seen and other (Probable Subclavian placement of tip. No pneumothorax.) Complications: other Additional Comments: Patient done under emergent consent. On anticoagulation. Recently discharged with sepsis. Very ill, toxic appearance, encephopathic. Emergent access needed and was performed in right IJ after both femorals were exhausted with multiple attempts. This right IJ took multiple attempts as well. Technically a very difficult IJ as patient screaming, ecephalopathic, and has complete collapse of IJ even in [place]. The IJ was ultimately pierced through the anterior and posterior perez taking care to avoid the same plane as the carotid. Needle withdrawn slowly and showed a good flash, J wire fed with difficulty. Sutured and dressed. Haider very poorly but flushed easily. Discussed with Drs. Mcginnis and Radu and the later assessed line with me and while not ideal is usable for resuscitative efforts.
[2018-04-25] MEDS ORDERED: Heparin - SQ 10,000 UNITS/ML Vial SQ SCH
[2018-04-25] MEDS ORDERED: Sod Chloride 0.9% Inj 2,000 ML IV.SIG ONE (01:06)
--- NOTE | 2018-04-25 01:13 | CT ---
EXAM DATE: 04/25/2018 12:55 AM EDT AGE/SEX: 83 years / Female INDICATIONS: Sepsis. Elevated D-Dimer. CLINICAL DATA: This is the patient's initial encounter. Patient reports that signs and symptoms have been present for 1 day and indicates a pain score of Nonresponsive. MEDICAL/SURGICAL HISTORY: Cardiovascular disease. Hypertension. Appendectomy. Hysterectomy. Chin melissa bypass. RADIATION DOSE: 17.54 CTDI (mGy) COMPARISON: [facility], CHEST 1V SINGLE AP, 04/24/2018. . TECHNIQUE: Volumetric scanning was performed using a multi-row detector CT scanner during bolus infu carroll of 95 ml Omnipaque 350 (iohexol) nonionic water-soluble contrast as a cumulative dose for multi ple exams. The data was post processed with a variety of visualization algorithms including full volu me maximum intensity projection and sliding thin slab reformation. Using automated exposure control and adjustment of the mA and/or kV according to patient size, radiation dose was kept as low as reaso nably achievable to obtain optimal diagnostic quality images. DICOM format image data is available e lectronically for review and comparison. FINDINGS: There is enlargement of the left lower lobe up to 3.7 x 0.2 cm, partially calcified left thyroid nodu le noted. Main pulmonary artery is prominent in caliber 4 cm. There is thrombus seen within the left upper lobe and lower lobe pulmonary arterial tree. There is a small left pleural effusion identified. CONCLUSION: 1. The examination is positive for pulmonary embolus on the left. 2. Left thyroid nodule. 3. Small left pleural effusion. 4. Dilatation of the main pulmonary artery. Electronically signed by: Jose Arriaga MD 04/25/2018 1:12 AM EDT
[2018-04-25] MEDS ORDERED: Heparin 10,000 UNITS/10 ML Vial (for IV use) IV.PUSH STA (01:16)
--- NOTE | 2018-04-25 01:18 | CT ---
EXAM DATE: 04/25/2018 1:00 AM EDT AGE/SEX: 83 years / Female INDICATIONS: Sepsis. CLINICAL DATA: This is the patient's initial encounter. Patient reports that signs and symptoms have been present for 1 day and indicates a pain score of Nonresponsive. MEDICAL/SURGICAL HISTORY: Cardiovascular disease. Hypertension. Appendectomy. Hysterectomy. Gastric bypass. ORAL CONTRAST: No oral contrast ingested. RADIATION DOSE: 20.31 CTDI (mGy) COMPARISON: [facility] [place], ABDOMEN 1V KUB, 04/14/2018. [facility] [place], CT ABDOMEN & PELVIS W CONTRAST, 04/11/2018. . TECHNIQUE: Multiple contiguous axial images were obtained through the abdomen and pelvis following b olus infusion of 95 ml Omnipaque 350 (iohexol) nonionic water-soluble contrast as a cumulative dose for multiple exams. No oral contrast ingested. Using automated exposure control and adjustment of [facility] mA and/or kV according to patient size, radiation dose was kept as low as reasonably achievable to obtain optimal diagnostic quality images. DICOM format image data is available electronically for r eview and comparison. FINDINGS: There is diffuse body wall edema. Wren catheter within the urinary bladder. The large bowel is mildl y distended and fluid-filled. There is no adenopathy or aneurysm. Atherosclerotic calcifications of t aorta and iliac vessels are noted. Liver, gallbladder, spleen, pancreas, adrenal glands are unrema rkable. There is cortical thinning and scarring of the left kidney and mild cortical thinning of the right kidney. The osseous structures demonstrate degenerative changes of the spine. There is a luzmaria ioma at the L3 vertebral body level. Remote compression deformities of the L3 and L2 vertebral bodies . CONCLUSION: 1. There are moderately distended air and fluid-filled loops of large bowel noted diffusely. 2. Body wall edema. 3. No focal fluid collections are identified to suggest abscess. Electronically signed by: Jose Arriaga MD 04/25/2018 1:17 AM EDT
[2018-04-25] MEDS ORDERED: Amiodarone Inj 150 MG in Dextrose 5% in Water Inj 97 ML IV.SIG ONE ×2 (01:37)
[2018-04-25] MEDS: Phenylephrine Inj 40 MG in Sodium Chlor 0.9% Inj 496 ML IV.CONT PRN ×3 (01:51→23:36)
[2018-04-25] MEDS: Albumin Human 5% Inj 500 ML IV.SIG SCH ×4 (01:51→21:14)
[2018-04-25] MEDS ORDERED: ALTEPLASE IV.SIG ONE (02:00)
[2018-04-25] MEDS ORDERED: WATER FOR INJ IV.SIG ONE (02:00)
[2018-04-25] MEDS ORDERED: STERILE IV.SIG ONE (02:00)
[2018-04-25 02:42] LABS: Activated Partial Thrombo Time 47.1 sec (24.3-30.1); INR 1.3 Ratio; Prothrombin Time 13.2 sec (9.8-11.6)
[2018-04-25] MEDS: Sod Chloride 0.9% Inj 1,000 ML IV.CONT SCH ×2 (02:43→04:53)
[2018-04-25] MEDS ORDERED: Chlorhexidine Gluconate 2% 1 Pack (2 Cloths) TOPICAL PRN (04:00)
[2018-04-25] MEDS: Chlorhexidine Gluconate 2% 1 Pack (2 Cloths) TOPICAL SCH (04:17)
[2018-04-25] MEDS: Heparin Drip 25,000 UNIT/250 ML BAG IV.CONT PRN (05:00)
[2018-04-25 06:32] LABS: Hematocrit 28.6 % (35.0-46.0); Hemoglobin 9.5 gm/dL (11.6-15.3); Mean Corpuscular HGB Conc 33.1 % (32.0-36.0); Mean Corpuscular Hemoglobin 28.6 pg (27.0-34.0); Mean Corpuscular Volume 86.3 fL (80.0-100.0); Mean Platelet Volume 8.3 fL (7.0-11.0); Platelet Count 150 th/mm3 (150-450); Red Blood Count 3.31 mil/mm3 (4.00-5.30); Red Cell Distribution Width 18.4 % (11.6-17.2); White Blood Count 48.5 th/mm3 (4.0-11.0)
[2018-04-25 07:51] LABS: Alanine Aminotransferase 13 U/L (10-53); Albumin 1.7 g/dL (3.4-5.0); Alkaline Phosphatase 109 U/L (45-117); Anion Gap 14 meq/L (5-15); Aspartate Aminotransferase 20 U/L (15-37); Blood Urea Nitrogen 28 mg/dL (7-18); Calcium 7.6 mg/dL (8.5-10.1); Carbon Dioxide 18.5 meq/L (21.0-32.0); Chloride 106 meq/L (98-107); Glomerular Filtration Rate Greater Than 89 mL/min (>89); Glucose,Random 137 mg/dL (74-106); Magnesium 1.5 mg/dL (1.5-2.5); Phosphorus 2.8 mg/dL (2.5-4.9); Sodium 138 meq/L (136-145); Total Protein 3.7 g/dL (6.4-8.2)
[2018-04-25] MEDS: Famotidine PF Inj 20 MG/2 ML Vial IV.PUSH SCH ×2 (08:03→21:16)
[2018-04-25] MEDS: Senna/Docusate Sodium 8.6/50 MG Tablet PO SCH ×2 (08:04→21:22)
[2018-04-25 08:25] LABS: Potassium 2.2 meq/L (3.5-5.1)
[2018-04-25 08:26] LABS: Eosinophils 1 % (0-4); Monocytes 1 % (0-8); Platelet Estimate Normal (Normal); Platelet Morphology Normal (Normal)
[2018-04-25 08:27] LABS: Toxic Vacuolation Present
[2018-04-25 08:28] LABS: INR 1.8 Ratio; Prothrombin Time 18.1 sec (9.8-11.6)
[2018-04-25 08:29] LABS: Activated Partial Thrombo Time 69.6 sec (24.3-30.1)
--- NOTE | 2018-04-25 09:10 | P.PCN ---
Date of procedure: 04/25/18 Pre-op diagnosis: Severe septic shock/C. difficile Post-op diagnosis: same Procedure: DATE: 04/25/2018 CENTRAL LINE PLACEMENT: Left subclavian vein. Ultrasound-guided INDICATION: Central venous access CONSENT Informed consent for procedure was obtained from patient. DESCRIPTION OF THE PROCEDURE The patient was placed in supine position. The skin was cleansed with Chloraprep. Additional barrier precautions included large sterile drape, sterile gloves, sterile gown, face mask, and hat. 1 % lidocaine was used for local anesthesia. Under direct ultrasound guidance and on initial attempt, the vein was accessed with an introducer needle. The guide wire was advanced and the tract was dilated. Using Seldinger technique a 7 [place] 20 cm antimicrobial coated triple-lumen catheter was advanced to a depth of 20 centimeters. The guide wire was removed. All ports had good return of dark venous blood and flushed easily with saline. The central line was secured with 2.0 silk. A sterile dressing with antibiotic disc was applied. ESTIMATED BLOOD LOSS: Minimal COMPLICATIONS: No apparent complications. STAT chest x-ray pending at time of dictation
--- NOTE | 2018-04-25 09:40 | XR ---
EXAM DATE: 04/25/2018 9:33 AM EDT AGE/SEX: 83 years / Female INDICATIONS: Post central line placement. CLINICAL DATA: This is the patient's initial encounter. Patient reports that signs and symptoms have been present for 1 day and indicates a pain score of 0/10. MEDICAL/SURGICAL HISTORY: . Cardiovascular disease. Hypertension. . Appendectomy. Hysterectom y. Gastric bypass. COMPARISON: [facility] [place], CHEST 1V SINGLE AP, 04/24/2018. . FINDINGS: A single AP view of the chest demonstrates interval placement of a left subclavian central line with the tip low within the right atrium. No pneumothorax. The right internal jugular vein central venous line is again seen with the tip in the subclavian vein. Low lung volumes noted. Linear atelectasis ve rsus scarring within the medial left base. No infiltrate or effusion. Heart is normal in size. CONCLUSION: 1. Tip of the left subclavian central line low within the right atrium. No pneumothorax. 2. Right internal jugular vein central venous line unchanged. Electronically signed by: Slim Scott MD 04/25/2018 9:39 AM EDT
--- NOTE | 2018-04-25 09:43 | P.PNCC ---
Subjective Subjective Remarks/Hospital Course: 83-year-old female presents from rehab facility after patient found to have altered mentation decreased blood pressure and O2 saturation of 53% on room air. Patient was just released from the hospital today after hospitalization for urosepsis, hyperkalemia and Clostridium difficile colitis. Patient was found to be hypothermic reportedly according to rehab nursing notes with a temperature of 93F upon her arrival to the nursing facility at 3 PM. Patient was noted by fire department to have room air O2 saturation of 53% as well and was placed on supplemental oxygen IV access was not able to be obtained EMS transported patient with decreased level of consciousness blood sugar 153 hypotensive with systolic pressure of 80 with peripheral cyanosis and decreased mentation. Upon patient arrival she is awake complaining of pain and asking for help O2 saturation 99% on partial rebreather mask. Patient has history of atrial fibrillation with left bundle branch block. The CT of the chest shows positive study for pulmonary embolism with a dilation of the main pulmonary artery. Subjective 04/25: Afebrile. Remains on phenylephrine drip at 110 mcg/min and heparin drip at 800 units an hour. On Venturi mask at 30% satting 100%. Abdomen remains tender. Decentralized place secondary to right IJ currently at 8 cm. with multiple vasopressor medications in use. Objective Vital Signs / I&O: Vital Signs 04/24/18 21:05 04/24/18 21:22 04/24/18 21:42 Temperature Pulse Rate 106 H 132 H 109 H Respiratory Rate 22 21 22 Blood Pressure 70/59 L 86/50 L 90/58 L Pulse Oximetry 100 97 97 04/24/18 22:02 04/24/18 22:06 04/24/18 23:27 Temperature 100 F H Pulse Rate 108 H 137 H Respiratory Rate Blood Pressure 92/52 L 85/57 L Pulse Oximetry 04/25/18 00:01 04/25/18 00:10 04/25/18 00:16 Temperature Pulse Rate 149 H 150 H Respiratory Rate 21 20 Blood Pressure 122/92 H 119/61 Pulse Oximetry 100 85 L 04/25/18 00:20 04/25/18 00:25 04/25/18 00:34 Temperature Pulse Rate 145 H 146 H 141 H Respiratory Rate 21 22 20 Blood Pressure 112/53 L 116/51 L 120/57 L Pulse Oximetry 04/25/18 00:40 04/25/18 00:45 04/25/18 00:53 Temperature Pulse Rate 138 H 144 H 134 H Respiratory Rate 29 H 20 22 Blood Pressure 137/73 125/61 90/51 L Pulse Oximetry 04/25/18 00:54 04/25/18 00:55 04/25/18 00:57 Temperature Pulse Rate 127 H 133 H Respiratory Rate 19 20 Blood Pressure 102/46 L 97/55 L Pulse Oximetry 04/25/18 01:00 04/25/18 01:05 04/25/18 01:11 Temperature 99.3 F 99.3 F Pulse Rate 126 H 125 H 130 H Respiratory Rate 17 20 19 Blood Pressure 96/50 L 113/72 111/49 L Pulse Oximetry 100 04/25/18 01:15 04/25/18 01:20 04/25/18 01:25 Temperature Pulse Rate 136 H 129 H 131 H Respiratory Rate 17 18 17 Blood Pressure 99/58 L 94/50 L 95/54 L Pulse Oximetry 100 100 100 04/25/18 01:30 04/25/18 01:35 04/25/18 01:46 Temperature Pulse Rate 125 H 130 H 129 H Respiratory Rate 18 17 19 Blood Pressure 89/51 L 88/50 L 98/49 L Pulse Oximetry 100 100 99 04/25/18 01:50 04/25/18 02:00 04/25/18 02:11 Temperature Pulse Rate 126 H 122 H 128 H Respiratory Rate 22 20 22 Blood Pressure 95/51 L 90/53 L 75/35 L Pulse Oximetry 100 100 100 04/25/18 02:12 04/25/18 02:20 04/25/18 02:30 Temperature Pulse Rate 125 H 118 H 119 H Respiratory Rate 17 25 H 17 Blood Pressure 63/37 L 70/40 L 78/43 L Pulse Oximetry 99 100 97 04/25/18 02:41 04/25/18 02:45 04/25/18 02:51 Temperature Pulse Rate 110 H 112 H 77 Respiratory Rate 18 18 16 Blood Pressure 77/38 L 69/45 L 115/55 L Pulse Oximetry 99 100 100 04/25/18 02:53 04/25/18 03:00 04/25/18 03:05 Temperature Pulse Rate 80 82 77 Respiratory Rate 15 19 17 Blood Pressure 127/60 106/53 L 102/51 L Pulse Oximetry 100 92 L 100 04/25/18 03:10 04/25/18 03:20 04/25/18 03:31 Temperature Pulse Rate 69 63 61 Respiratory Rate 16 15 13 Blood Pressure 108/58 L 112/59 L 123/67 Pulse Oximetry 100 100 100 04/25/18 03:40 04/25/18 03:50 04/25/18 04:00 Temperature Pulse Rate 76 61 64 Respiratory Rate 17 13 14 Blood Pressure 116/55 L 124/59 L 122/59 L Pulse Oximetry 100 100 100 04/25/18 04:10 04/25/18 04:22 04/25/18 05:00 Temperature Pulse Rate 65 74 75 Respiratory Rate 15 15 17 Blood Pressure 115/57 L 107/60 Pulse Oximetry 100 100 100 04/25/18 05:15 04/25/18 05:20 04/25/18 05:31 Temperature Pulse Rate 79 93 H 77 Respiratory Rate 18 15 16 Blood Pressure 96/54 L 94/46 L 79/43 L Pulse Oximetry 100 100 98 04/25/18 05:45 04/25/18 06:00 04/25/18 06:07 Temperature Pulse Rate 70 67 75 Respiratory Rate 14 13 18 Blood Pressure 87/49 L 82/46 L 85/53 L Pulse Oximetry 98 100 100 04/25/18 06:08 04/25/18 06:09 04/25/18 06:10 Temperature Pulse Rate 78 77 76 Respiratory Rate 18 19 16 Blood Pressure 86/50 L 80/51 L 79/46 L Pulse Oximetry 100 100 99 04/25/18 06:15 04/25/18 06:30 04/25/18 06:45 Temperature Pulse Rate 76 78 73 Respiratory Rate 18 17 16 Blood Pressure 86/50 L 92/55 L 93/51 L Pulse Oximetry 100 100 100 04/25/18 07:00 04/25/18 07:12 04/25/18 07:16 Temperature Pulse Rate 67 78 84 Respiratory Rate 19 21 20 Blood Pressure 86/51 L 90/47 L 95/59 L Pulse Oximetry 95 100 86 L 04/25/18 09:02 Temperature Pulse Rate Respiratory Rate Blood Pressure Pulse Oximetry 99 Intake & Output 04/24/18 04/25/18 04/25/18 18:59 06:59 18:59 Intake Total 4370 / 4370 500 / 500 Output Total 1810 / 1810 Balance 2560 / 2560 500 / 500 Weight 99.3 kg Intake: IV 4370 / 4370 500 / 500 Neosynephrine Inj 40 MG In NS 500 / 500 Inj 496 ML @ 40 MCG/MIN 30 mls/ hr IV.CONT TITRATE PRN Rx#: [id number] NS Inj 1,000 ML @ 184 mls/hr IV 1000 / 1000 .CONT .[id number] [facility] Rx#:[id number] Alburx 5% Inj 500 ML @ 250 mls/ 500 / 500 hr IV.SIG Q6H [facility] Rx#:[id number] Activase Inj 100 MG In Sterile 100 / 100 Water for Inj 100 ML @ 50 mls/ hr IV.SIG ONCE ONE Rx#:[id number] Cordarone Inj 150 MG In D5W Inj 100 / 100 97 ML @ 600 mls/hr IV.SIG ONCE ONE Rx#:[id number] Calcium Chloride Inj 2 GM In NS 120 / 120 Inj 100 ML @ 120 mls/hr IV.SIG ONCE ONE Rx#:[id number] Maxipime Inj 2,000 MG In NS Inj 100 / 100 100 ML @ 200 mls/hr IV.SIG ONCE ONE Rx#:[id number] NS Inj 1,000 ML @ Wide Open IV. 1999 / 1999 SIG BOLUS ONE Rx#:[id number] Vancomycin Inj 1,000 MG In NS 250 / 250 Inj 250 ML @ 250 mls/hr IV.SIG ONCE ONE Rx#:[id number] Flagyl 500 MG Inj 100 ML @ 100 200 / 200 mls/hr IV.SIG Q6H [facility] Rx#: [id number] Output: Urine 960 / 960 Urine Amount (Catheter) 850 / 850 Indwelling Urethral Catheter 850 / 850 Other: # Bowel Movements 0 Weight On Admission 99.3 kg Result Diagrams: 04/25/18 06:12 04/25/18 08:33 Imaging: Chest X-Ray 04/24/18 20:58 CONCLUSION: The right IJ line has its tip in the subclavian vein. No pneumothorax. Abdomen/Pelvis CT 04/25/18 00:00 CONCLUSION: 1. There are moderately distended air and fluid-filled loops of large bowel noted diffusely. 2. Body wall edema. 3. No focal fluid collections are identified to suggest abscess. Chest CTA 04/25/18 00:00 CONCLUSION: 1. The examination is positive for pulmonary embolus on the left. 2. Left thyroid nodule. 3. Small left pleural effusion. 4. Dilatation of the main pulmonary artery. Chest X-Ray 04/25/18 09:04 CONCLUSION: 1. Tip of the left subclavian central line low within the right atrium. No pneumothorax. 2. Right internal jugular vein central venous line unchanged. Objective Remarks: GENERAL: 83-year-old female currently a mask in mild distress secondary to pain SKIN: Warm and dry. Well perfused. No rash HEAD: Atraumatic. Normocephalic. EYES: Pupils equal and round. No scleral icterus. No injection or drainage. ENT: No nasal bleeding or discharge. Mucous membranes pink and moist. NECK: Trachea midline. No JVD. CARDIOVASCULAR: IRR. S1, S2 no S4 2/6 systolic murmur RESPIRATORY: No accessory muscle use. Clear to auscultation. Breath sounds equal bilaterally. GASTROINTESTINAL: Abdomen is tender to palpation bilateral lower quadrants especially. Hypoactive bowel sounds appreciated voluntary guarding. No rigidity. MUSCULOSKELETAL: Extremities positive bilateral upper and lower extremity edema. Left knee deep tissue injury. Left hip 8 x 2 cm deep tissue injury NEUROLOGICAL: Awake and alert. Pleasantly confused. No obvious cranial nerve deficits. Motor grossly within normal limits. Five out of 5 muscle strength in the arms and legs. Assessment and Plan - Assessment and Plan Plan: Neuro/Psych: Acute encephalopathy secondary to severe sepsis Acute pain management CT brain on admission assessment revealed no acute intracranial findings Currently on morphine sulfate 2 mg IV every 2 hours as needed pain CV: Atrial fibrillation with rapid ventricular response History of essential hypertension Hyperlipidemia Severe sepsis Left bundle branch block Currently on phenylephrine drip at 110 mcg/min to maintain mean arterial pressure greater or equal to 65 CVP is 4 Receiving crystalloid and colloid resuscitation Initial troponin 0 0.07 Continue amiodarone per protocol currently 1 mg/min 2D echocardiogram 02/02 revealed EF 55-6%. Left atrial enlargement. Moderate MR. Holding home medication diltiazem 240 mg daily light of hypotension/vasopressor requirements. Resp: Acute respiratory failure secondary to left upper/lower extremity pulmonary embolism CT pulmonary angiogram 04/24 revealed left upper/lower lobe pulmonary embolus and. Received alteplase 100 mg over 2 hours 04/24. Currently in heparin drip. Venturi mask 35% titrate to maintain saturations greater than equal to 92% Incentive spirometry while awake Albuterol/ipratropium aerosols every 4 hours with albuterol aerosols every 2 hours as needed for dyspnea Chest x-ray in a.m. 04/26 GI: C. difficile History of dilated:/Fecal impaction Hypoalbuminemia Elevated total bilirubin Currently n.p.o. Famotidine for GI prophylaxis Docusate sodium/senna 1 tablet twice daily for bowel regimen Currently in 6 doses of albumin 25% every 6 hours 6 per overnight licensed loan officer CT abdomen/pelvis revealed dilated large bowel. No signs of perforation. GI consultation : Wren catheter has been placed for accurate I's and O's in a critically ill patient Endo: Sliding scale insulin Accu-Cheks every 6 hours to maintain euglycemia Check TSH Renal: Creatinine currently within normal limits Monitor urine output Accurate I's and O's Heme: Leukocytosis Normocytic anemia Elevated INR/PTT Currently heparin drip 800 units an hour. Monitor CBC daily. Follow trends. Fibrinogen in a.m. No indication for transfusion of blood products at this time. ID: Severe sepsis C. difficile UTI present prior to admission Currently on metronidazole 500 every 6 and vancomycin 250 by mouth 4 times daily. C. difficile pending Blood cultures 04/24 pending Cefepime for coverage FEN: Hypokalemia Hypomagnesia 80 mEq potassium 1 now. Recheck at 1500 LR with 20 mill cons KCl 125 cc an hour MSK: Old L2/3 compression fractures L3 hemangioma Deep tissue injury left hip and knee Elevated BMI PT evaluate and treat Wound care nurse evaluate and treat Weight loss encouraged Access -Left subclavian CVL day #1 placed 04/25. Remove right IJ CVL day #2 placed 04/24 in ED Prophylaxis -GI -famotidine -DVT -SCD/heparin drip Critical Care: The total critical care time was 35 minutes. Time to perform other separately billable procedures was not included in the critical care time.
[2018-04-25] MEDS ORDERED: Potassium Chlor 10 mEq Premix 10 MEQ/100 ML PIGGYBACK IV.SIG SCH (10:00)
--- NOTE | 2018-04-25 10:10 | P.CONID ---
History of Present Illness Service: Infectious disease Consult date: 04/25/18 Requesting Physician: Fausto Lovelace Reason for Consult: Evaluate patient with sepsis and possible C. difficile colitis Primary Care Provider: UNKNOWN History of Present Illness: Patient seen and examined. Records reviewed. Patient is an 83-year-old female, came from the rehab facility, brought into the hospital for evaluation of altered mental status, hypotension, and low oxygen saturation. Patient used to live at home, and she was hospitalized in January and at that time she presented with sepsis. She was found to have a UTI, and she was discharged to a rehab facility. She was readmitted in March, and at that time she was found to have C. difficile colitis, and went back to the rehab facility. She came back this time for further evaluation of sepsis, hypotension and low-dose oxygen saturation. Patient currently is on a facemask. She is hypotensive, and on Rosalio-Synephrine. Her initial WBC was 40K, and now up to 48K. Lactic acid is normal. She had a low-grade temp on presentation. She is currently having diarrhea, and stool for C. difficile toxin is still pending. Her urinalysis did show evidence of UTI. She has good urine output, and she is still somewhat lethargic. Patient on Flagyl, oral vancomycin, and has received a dose of IV cefepime and IV vancomycin in the ED last night. Her chest x-ray is normal. CTA did show evidence of pulmonary embolism on the left side, and patient received TPA. CT of the abdomen and pelvis did not show any evidence of abscess, and there was no mention of any hydronephrosis. 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 difficile colitis UTI (urinary tract infection) Atrial fibrillation Encephalopathy due to infection Hyperlipemia Hypertension Sepsis - Surgical History Surgical History: Surgical History (Last Reviewed 04/25/18 @ 09:36 by Juan Pablo Moura) H/O abdominal surgery - Tobacco History Second Hand Smoke Exposure: No Smoking Status: Unknown if ever smoked - Alcohol History How Often Do You Have a Drink Containing Alcohol: Unable to Obtain - Substance Use History Substance History: Unable to Obtain - Travel History Recent Travel in the [place] Within the Last 8 Weeks: No Recent Travel Out of the Country Within the Last 8 Weeks: No - Immunization History Tetanus Immunization: Unable to Assess Medications and Allergies Active Medications: Active Medications Acetaminophen (Tylenol) 650 mg PO Q6H PRN PRN Reason: PAIN 1-10 AND/OR FEVER >101F Al Hydroxide/Mg Hydroxide (Milk Of Magnnikita Liq) 30 ml PO Q12H PRN PRN Reason: Mild Constipation Albuterol (Albuterol Neb (Prn)) 2.5 mg NEB Q2HR NEB PRN PRN Reason: dyspnea Albuterol (Duoneb Neb (Prn)) 1 ampul NEB Q4HR NEB AMELIE Bisacodyl (Dulcolax Supp) 10 mg RECTAL DAILY PRN PRN Reason: SEVERE CONSITIPATION Chlorhexidine Gluconate (Chlorhexidine 2% Cloth) 3 pack TOPICAL DAILY@0400 AMELIE Stop: 04/30/18 03:59 Last Admin: 04/25/18 04:17 Dose: 3 pack Chlorhexidine Gluconate (Chlorhexidine 2% Cloth) 3 pack TOPICAL DAILY@0400 PRN PRN Reason: Extra cloth needed Stop: 04/30/18 03:59 Famotidine (Pepcid Pf Inj) 20 mg IV.PUSH Q12HR [facility] Last Admin: 04/25/18 08:03 Dose: 20 mg Norepinephrine Bitartrate (Levophed-Dextrose 4 Mg/250 Ml Drip) 4 mg in 250 mls @ 7.5 mls/hr IV.SIG TITRATE PRN; Protocol PRN Reason: Per Protocol Last Titration: 04/24/18 23:16 Dose: 4 mcg/min, 15 mls/hr Metronidazole/Sodium Chloride (Flagyl 500 Mg Inj) 100 mls @ 100 mls/hr IV.SIG Q6H [facility] Last Infusion: 04/25/18 06:37 Dose: Infused Phenylephrine HCl 40 mg/ (Sodium Chloride) 500 mls @ 30 mls/hr IV.CONT TITRATE PRN; Protocol PRN Reason: See Protocol Last Admin: 04/25/18 09:22 Dose: 110 mcg/min, 82.5 mls/hr Albumin Human (Alburx 5% Inj) 500 mls @ 250 mls/hr IV.SIG Q6H AMELIE Stop: 04/25/18 21:59 Last Admin: 04/25/18 08:03 Dose: 250 mls/hr Heparin Sodium/Dextrose (Heparin/D5w 25,000 U/250 Ml) 25,000 unit in 250 mls @ 0 mls/hr IV.CONT TITRATE PRN; Protocol PRN Reason: Per Protocol Last Admin: 04/25/18 05:00 Dose: 1,800 units/hr, 18 mls/hr Amiodarone HCl 450 mg/ (Dextrose) 250 mls @ 33.33 mls/hr IV.CONT TITRATE PRN; Protocol PRN Reason: Per Protocol Potassium Chloride (Kcl 40 Meq Premix Inj) 40 meq in 100 mls @ 25 mls/hr IV.SIG Q4H AMELIE Stop: 04/25/18 17:14 Lactated Ringer's (Lr 1000 Ml Inj) 1,000 mls @ 0 mls/hr IV.SIG BOLUS ONE Stop: 04/25/18 09:57 Potassium Chloride 20 meq/ (Lactated Ringer's) 1,010 mls @ 125 mls/hr IV.CONT .Q8H5M [facility] Lactulose (Lactulose Liq) 30 ml PO DAILY PRN PRN Reason: SEVERE CONSITIPATION Metoclopramide HCl (Reglan Inj) 5 mg IV.PUSH Q6HR [facility]; Protocol Last Admin: 04/25/18 05:00 Dose: 5 mg Morphine Sulfate (Morphine Inj) 2 mg IV.PUSH Q2H PRN PRN Reason: PAIN SCALE 6 TO 10 Mupirocin (Bactroban 2% Nasal Oint) 1 applicatio EACH NARE BID [facility] Ondansetron HCl (Zofran Inj) 4 mg IV.PUSH Q6H PRN PRN Reason: NAUSEA OR VOMITING Senna/Docusate Sodium (Jeanette-Colace) 1 tab PO BID [facility] Last Admin: 04/25/18 08:04 Dose: Not Given Sennosides (Senokot) 17.2 mg PO Q12H PRN PRN Reason: Moderate Constipation Sodium Chloride (Ns Flush) 2 ml IV.FLUSH BID [facility] Last Admin: 04/25/18 08:03 Dose: 2 ml Sodium Chloride (Ns Flush) 2 ml IV.FLUSH PRN PRN PRN Reason: FLUSH AFTER USING IV ACCESS Sodium Chloride (Ns Flush) 0 ml IV.FLUSH DAILY [facility] Terbutaline Sulfate (Brethine Inj) 1 mg SQ UNSCH PRN PRN Reason: For Extravasation Terbutaline Sulfate (Brethine Inj) 1 mg SQ UNSCH PRN PRN Reason: For Extravasation Vancomycin HCl (Vancomycin Po) 250 mg PO QID [facility] Last Admin: 04/25/18 08:03 Dose: 250 mg Allergies Allergy/AdvReac Type Severity Reaction Status Date / Time No Known Allergies Allergy none Uncoded 04/17/18 13:51 Home Medications Medication Instructions Recorded Confirmed Type diltiazem HCl [Cartia XT] 240 mg PO DAILY 04/11/18 04/11/18 History potassium 10 meq PO DAILY 04/11/18 04/11/18 History Exam Vital signs: Vital Signs 04/24/18 21:05 04/24/18 21:22 04/24/18 21:42 Temperature Pulse Rate 106 H 132 H 109 H Respiratory Rate 22 21 22 Blood Pressure 70/59 L 86/50 L 90/58 L Pulse Oximetry 100 97 97 04/24/18 22:02 04/24/18 22:06 04/24/18 23:27 Temperature 100 F H Pulse Rate 108 H 137 H Respiratory Rate Blood Pressure 92/52 L 85/57 L Pulse Oximetry 04/25/18 00:01 04/25/18 00:10 04/25/18 00:16 Temperature Pulse Rate 149 H 150 H Respiratory Rate 21 20 Blood Pressure 122/92 H 119/61 Pulse Oximetry 100 85 L 04/25/18 00:20 04/25/18 00:25 04/25/18 00:34 Temperature Pulse Rate 145 H 146 H 141 H Respiratory Rate 21 22 20 Blood Pressure 112/53 L 116/51 L 120/57 L Pulse Oximetry 04/25/18 00:40 04/25/18 00:45 04/25/18 00:53 Temperature Pulse Rate 138 H 144 H 134 H Respiratory Rate 29 H 20 22 Blood Pressure 137/73 125/61 90/51 L Pulse Oximetry 04/25/18 00:54 04/25/18 00:55 04/25/18 00:57 Temperature Pulse Rate 127 H 133 H Respiratory Rate 19 20 Blood Pressure 102/46 L 97/55 L Pulse Oximetry 04/25/18 01:00 04/25/18 01:05 04/25/18 01:11 Temperature 99.3 F 99.3 F Pulse Rate 126 H 125 H 130 H Respiratory Rate 17 20 19 Blood Pressure 96/50 L 113/72 111/49 L Pulse Oximetry 100 04/25/18 01:15 04/25/18 01:20 04/25/18 01:25 Temperature Pulse Rate 136 H 129 H 131 H Respiratory Rate 17 18 17 Blood Pressure 99/58 L 94/50 L 95/54 L Pulse Oximetry 100 100 100 04/25/18 01:30 04/25/18 01:35 04/25/18 01:46 Temperature Pulse Rate 125 H 130 H 129 H Respiratory Rate 18 17 19 Blood Pressure 89/51 L 88/50 L 98/49 L Pulse Oximetry 100 100 99 04/25/18 01:50 04/25/18 02:00 04/25/18 02:11 Temperature Pulse Rate 126 H 122 H 128 H Respiratory Rate 22 20 22 Blood Pressure 95/51 L 90/53 L 75/35 L Pulse Oximetry 100 100 100 04/25/18 02:12 04/25/18 02:20 04/25/18 02:30 Temperature Pulse Rate 125 H 118 H 119 H Respiratory Rate 17 25 H 17 Blood Pressure 63/37 L 70/40 L 78/43 L Pulse Oximetry 99 100 97 04/25/18 02:41 04/25/18 02:45 04/25/18 02:51 Temperature Pulse Rate 110 H 112 H 77 Respiratory Rate 18 18 16 Blood Pressure 77/38 L 69/45 L 115/55 L Pulse Oximetry 99 100 100 04/25/18 02:53 04/25/18 03:00 04/25/18 03:05 Temperature Pulse Rate 80 82 77 Respiratory Rate 15 19 17 Blood Pressure 127/60 106/53 L 102/51 L Pulse Oximetry 100 92 L 100 04/25/18 03:10 04/25/18 03:20 04/25/18 03:31 Temperature Pulse Rate 69 63 61 Respiratory Rate 16 15 13 Blood Pressure 108/58 L 112/59 L 123/67 Pulse Oximetry 100 100 100 04/25/18 03:40 04/25/18 03:50 04/25/18 04:00 Temperature Pulse Rate 76 61 64 Respiratory Rate 17 13 14 Blood Pressure 116/55 L 124/59 L 122/59 L Pulse Oximetry 100 100 100 08/08/18 04:10 04/25/18 04:22 04/25/18 05:00 Temperature Pulse Rate 65 74 75 Respiratory Rate 15 15 17 Blood Pressure 115/57 L 107/60 Pulse Oximetry 100 100 100 04/25/18 05:15 04/25/18 05:20 04/25/18 05:31 Temperature Pulse Rate 79 93 H 77 Respiratory Rate 18 15 16 Blood Pressure 96/54 L 94/46 L 79/43 L Pulse Oximetry 100 100 98 04/25/18 05:45 04/25/18 06:00 04/25/18 06:07 Temperature Pulse Rate 70 67 75 Respiratory Rate 14 13 18 Blood Pressure 87/49 L 82/46 L 85/53 L Pulse Oximetry 98 100 100 04/25/18 06:08 04/25/18 06:09 04/25/18 06:10 Temperature Pulse Rate 78 77 76 Respiratory Rate 18 19 16 Blood Pressure 86/50 L 80/51 L 79/46 L Pulse Oximetry 100 100 99 04/25/18 06:15 04/25/18 06:30 04/25/18 06:45 Temperature Pulse Rate 76 78 73 Respiratory Rate 18 17 16 Blood Pressure 86/50 L 92/55 L 93/51 L Pulse Oximetry 100 100 100 04/25/18 07:00 04/25/18 07:12 04/25/18 07:16 Temperature Pulse Rate 67 78 84 Respiratory Rate 19 21 20 Blood Pressure 86/51 L 90/47 L 95/59 L Pulse Oximetry 95 100 86 L 04/25/18 09:02 Temperature Pulse Rate Respiratory Rate Blood Pressure Pulse Oximetry 99 Intake & Output 04/24/18 04/25/18 04/25/18 18:59 06:59 18:59 Intake Total 4370 / 4370 500 / 500 Output Total 1810 / 1810 Balance 2560 / 2560 500 / 500 Weight 99.3 kg Intake: IV 4370 / 4370 500 / 500 Neosynephrine Inj 40 MG In NS 500 / 500 Inj 496 ML @ 40 MCG/MIN 30 mls/ hr IV.CONT TITRATE PRN Rx#: [id number] NS Inj 1,000 ML @ 184 mls/hr IV 1000 / 1000 .CONT .Q5H27M [facility] Rx#:[id number] Alburx 5% Inj 500 ML @ 250 mls/ 500 / 500 hr IV.SIG Q6H [facility] Rx#:[id number] Activase Inj 100 MG In Sterile 100 / 100 Water for Inj 100 ML @ 50 mls/ hr IV.SIG ONCE ONE Rx#:[id number] Cordarone Inj 150 MG In D5W Inj 100 / 100 97 ML @ 600 mls/hr IV.SIG ONCE ONE Rx#:[id number] Calcium Chloride Inj 2 GM In NS 120 / 120 Inj 100 ML @ 120 mls/hr IV.SIG ONCE ONE Rx#:[id number] Maxipime Inj 2,000 MG In NS Inj 100 / 100 100 ML @ 200 mls/hr IV.SIG ONCE ONE Rx#:[id number] NS Inj 1,000 ML @ Wide Open IV. 1999 / 1999 SIG BOLUS ONE Rx#:[id number] Vancomycin Inj 1,000 MG In NS 250 / 250 Inj 250 ML @ 250 mls/hr IV.SIG ONCE ONE Rx#:[id number] Flagyl 500 MG Inj 100 ML @ 100 200 / 200 mls/hr IV.SIG Q6H [facility] Rx#: [id number] Output: Urine 960 / 960 Urine Amount (Catheter) 850 / 850 Indwelling Urethral Catheter 850 / 850 Other: # Bowel Movements 0 Weight On Admission 99.3 kg Narrative: Physical Examination GENERAL: Patient is a well-nourished, well-developed female, lethargic, skin looks pale, looks acutely ill appearing, on FM, in mild respiratory distress. SKIN: Cool and dry. Skin pale, has mottling on both feet, hands cool. No generalized rash HEAD: Atraumatic. Normocephalic. No temporal wasting, or tenderness. EYES: Pale conjunctiva. No petechia or hemorrhage. Pupils equal, round and reactive to light. Extraocular movements full and intact. No scleral icterus. No injection or drainage. EARS, NOSE AND THROAT: Nose without bleeding or purulent nasal discharge. Dry oral mucosa. NECK: Trachea midline. Supple and not tender, no meningeal signs. No nuchal rigidity. CARDIOVASCULAR: Regular rate and rhythm. No murmurs, rubs or gallops heard RESPIRATORY: Clear to auscultation. Breath sounds equal bilaterally. No rales , wheezing or rhonchi ABDOMEN: Soft, non-tender, nondistended. Bowel sounds present and hypoactive. No guarding. No rebound. No organomegaly. EXTREMITIES: No clubbing. Has mottling both feet, has bilateral pitting edema. There is an open wound medial L knee that is about 1 inch diameter with some slough, no periwound erythema, has some serous drainage. Cool extremities NEUROLOGICAL: Lethargic, no Babinski, no ankle clonus PSYCHIATRIC: Unable to assess : Wren in place with some sediment She is incontinent of liquid stool. LINE: RIJ central line with blood at site Results - Labs CBC & Chem 7: 04/25/18 06:12 04/25/18 08:33 Labs: Laboratory Results - last 24 hr 04/24/18 04/24/18 04/24/18 21:12 21:28 21:28 WBC 40.3 H RBC 4.44 Hgb 12.7 Hct 38.0 MCV 85.6 MCH 28.6 MCHC 33.4 RDW 18.4 H Plt Count 215 MPV 9.5 Prelim Diff (Auto) Slide review pending Neut % (Auto) 95.2 H Lymph % (Auto) 2.5 L [place] % (Auto) 1.4 Eos % (Auto) 0.6 Baso % (Auto) 0.3 Neut # (Auto) 38.4 H Lymph # (Auto) 1.0 [place] # (Auto) 0.5 Eos # (Auto) 0.2 Baso # (Auto) 0.1 WBC Differential Manual diff final Seg Neuts % (Manual) 95 H Band Neuts % (Manual) Lymphocytes % (Manual) 1 L Monocytes % (Manual) 4 Eosinophils % (Manual) Abs Neuts (Manual) 38.3 H Differential Comment . Toxic Granulation 1+ H Toxic Vacuolation Present H Platelet Estimate Platelet Morphology PT 11.8 H D INR 1.2 APTT 32.0 H Puncture Site Left radial Patient Temperature 98.6 O2 Saturation 98 ABG pH 7.56 H* ABG pCO2 19 L* ABG pO2 251 H ABG HCO3 17 L ABG O2 Content 18.3 ABG Base Excess -5.5 L ABG Methemoglobin 0.7 Parish Test Present Hemoglobin 12.9 Carboxyhemoglobin 0.8 O2 Delivery Device Prb Liter Flow 15.00 Critical Value Yes Sodium Potassium Chloride Carbon Dioxide Anion Gap BUN Creatinine Estimated GFR POC Glucose Random Glucose Lactic Acid Calcium Prot Corrected Calcium Phosphorus Magnesium Total Bilirubin AST ALT Alkaline Phosphatase Total Creatine Kinase CK-MB (CK-2) Troponin I Total Protein Albumin Lipase Urine Color Urine Clarity Urine pH Ur Specific [place] Urine Protein Urine Glucose (UA) Urine Ketones Urine Occult Blood Urine Nitrate Urine Bilirubin Urine Urobilinogen Ur Leukocyte Esterase Urine RBC Urine WBC Urine WBC Clumps Ur Squamous Epith Cells Ur Transition Epith Cell Ur Renal Epithelial Cell Urine Bacteria Hyaline Casts Granular Casts Urine Mucus Micro UA Comment Urine Culture Comments Nasal Screen MRSA (PCR) 04/24/18 04/24/18 04/24/18 21:28 21:28 23:04 WBC RBC Hgb Hct MCV MCH MCHC RDW Plt Count MPV Prelim Diff (Auto) Neut % (Auto) Lymph % (Auto) [place] % (Auto) Eos % (Auto) Baso % (Auto) Neut # (Auto) Lymph # (Auto) [place] # (Auto) Eos # (Auto) Baso # (Auto) WBC Differential Seg Neuts % (Manual) Band Neuts % (Manual) Lymphocytes % (Manual) Monocytes % (Manual) Eosinophils % (Manual) Abs Neuts (Manual) Differential Comment Toxic Granulation Toxic Vacuolation Platelet Estimate Platelet Morphology PT INR APTT Puncture Site Patient Temperature O2 Saturation ABG pH ABG pCO2 ABG pO2 ABG HCO3 ABG O2 Content ABG Base Excess ABG Methemoglobin [place] Test Hemoglobin Carboxyhemoglobin O2 Delivery Device Liter Flow Critical Value Sodium 129 L Potassium 4.4 Chloride 99 Carbon Dioxide 16.9 L Anion Gap 13 BUN 31 H Creatinine 0.76 Estimated GFR 73 L POC Glucose Random Glucose 104 Lactic Acid 1.5 Calcium 7.2 L* Prot Corrected Calcium 8.3 L Phosphorus Magnesium 1.7 Total Bilirubin 0.8 AST 57 H ALT 23 Alkaline Phosphatase 180 H Total Creatine Kinase 125 CK-MB (CK-2) 1.0 Troponin I 0.07 H Total Protein 5.0 L Albumin 1.4 L Lipase 27 L Urine Color Sadie Urine Clarity Cloudy H Urine pH 5.0 Ur Specific [place] 1.016 Urine Protein Negative Urine Glucose (UA) Negative Urine Ketones Negative Urine Occult Blood Negative Urine Nitrate Negative Urine Bilirubin Negative Urine Urobilinogen Less than 2 Ur Leukocyte Esterase Large H Urine RBC 11 H Urine WBC Urine WBC Clumps Many H Ur Squamous Epith Cells <1 Ur Transition Epith Cell <1 Ur Renal Epithelial Cell <1 Urine Bacteria Occasional H Hyaline Casts 74 Granular Casts 4 Urine Mucus Few H Micro UA Comment Cath-culture ind Urine Culture Comments Cath-cult indicated Nasal Screen MRSA (PCR) 04/25/18 04/25/18 04/25/18 00:04 02:16 03:24 WBC RBC Hgb Hct MCV MCH MCHC RDW Plt Count MPV Prelim Diff (Auto) Neut % (Auto) Lymph % (Auto) [place] % (Auto) Eos % (Auto) Baso % (Auto) Neut # (Auto) Lymph # (Auto) [place] # (Auto) Eos # (Auto) Baso # (Auto) WBC Differential Seg Neuts % (Manual) Band Neuts % (Manual) Lymphocytes % (Manual) Monocytes % (Manual) Eosinophils % (Manual) Abs Neuts (Manual) Differential Comment Toxic Granulation Toxic Vacuolation Platelet Estimate Platelet Morphology PT 13.2 H INR 1.3 APTT 47.1 H D Puncture Site Patient Temperature O2 Saturation ABG pH ABG pCO2 ABG pO2 ABG HCO3 ABG O2 Content ABG Base Excess ABG Methemoglobin [place] Test Hemoglobin Carboxyhemoglobin O2 Delivery Device Liter Flow Critical Value Sodium Potassium Chloride Carbon Dioxide Anion Gap BUN Creatinine Estimated GFR POC Glucose 117 H Random Glucose Lactic Acid Calcium Prot Corrected Calcium Phosphorus Magnesium Total Bilirubin AST ALT Alkaline Phosphatase Total Creatine Kinase CK-MB (CK-2) Troponin I Total Protein Albumin Lipase Urine Color Urine Clarity Urine pH Ur Specific [place] Urine Protein Urine Glucose (UA) Urine Ketones Urine Occult Blood Urine Nitrate Urine Bilirubin Urine Urobilinogen Ur Leukocyte Esterase Urine RBC Urine WBC Urine WBC Clumps Ur Squamous Epith Cells Ur Transition Epith Cell Ur Renal Epithelial Cell Urine Bacteria Hyaline Casts Granular Casts Urine Mucus Micro UA Comment Urine Culture Comments Nasal Screen MRSA (PCR) Mrsa detected 04/25/18 04/25/18 04/25/18 06:12 06:55 06:55 WBC 48.5 H RBC 3.31 L Hgb 9.5 L D Hct 28.6 L MCV 86.3 MCH 28.6 MCHC 33.1 RDW 18.4 H Plt Count 150 D MPV 8.3 Prelim Diff (Auto) Manual diff required Neut % (Auto) Lymph % (Auto) [place] % (Auto) Eos % (Auto) Baso % (Auto) Neut # (Auto) Lymph # (Auto) [place] # (Auto) Eos # (Auto) Baso # (Auto) WBC Differential Manual diff final Seg Neuts % (Manual) 83 H Band Neuts % (Manual) 15 H Lymphocytes % (Manual) Monocytes % (Manual) 1 Eosinophils % (Manual) 1 Abs Neuts (Manual) 47.5 H Differential Comment . Toxic Granulation Toxic Vacuolation Present H Platelet Estimate Normal Platelet Morphology Normal PT 18.1 H INR 1.8 APTT 69.6 H D Puncture Site Patient Temperature O2 Saturation ABG pH ABG pCO2 ABG pO2 ABG HCO3 ABG O2 Content ABG Base Excess ABG Methemoglobin [place] Test Hemoglobin Carboxyhemoglobin O2 Delivery Device Liter Flow Critical Value Sodium 138 Potassium 2.2 L* D Chloride 106 Carbon Dioxide 18.5 L Anion Gap 14 BUN 28 H Creatinine 0.51 Estimated GFR Greater than 89 POC Glucose Random Glucose 137 H Lactic Acid Calcium 7.6 L Prot Corrected Calcium Phosphorus 2.8 Magnesium 1.5 Total Bilirubin 1.3 H AST 20 ALT 13 Alkaline Phosphatase 109 Total Creatine Kinase CK-MB (CK-2) Troponin I Total Protein 3.7 L D Albumin 1.7 L Lipase Urine Color Urine Clarity Urine pH Ur Specific [place] Urine Protein Urine Glucose (UA) Urine Ketones Urine Occult Blood Urine Nitrate Urine Bilirubin Urine Urobilinogen Ur Leukocyte Esterase Urine RBC Urine WBC Urine WBC Clumps Ur Squamous Epith Cells Ur Transition Epith Cell Ur Renal Epithelial Cell Urine Bacteria Hyaline Casts Granular Casts Urine Mucus Micro UA Comment Urine Culture Comments Nasal Screen MRSA (PCR) 04/25/18 06:55 WBC RBC Hgb Hct MCV MCH MCHC RDW Plt Count MPV Prelim Diff (Auto) Neut % (Auto) Lymph % (Auto) [place] % (Auto) Eos % (Auto) Baso % (Auto) Neut # (Auto) Lymph # (Auto) [place] # (Auto) Eos # (Auto) Baso # (Auto) WBC Differential Seg Neuts % (Manual) Band Neuts % (Manual) Lymphocytes % (Manual) Monocytes % (Manual) Eosinophils % (Manual) Abs Neuts (Manual) Differential Comment Toxic Granulation Toxic Vacuolation Platelet Estimate Platelet Morphology PT INR APTT Puncture Site Patient Temperature O2 Saturation ABG pH ABG pCO2 ABG pO2 ABG HCO3 ABG O2 Content ABG Base Excess ABG Methemoglobin [place] Test Hemoglobin Carboxyhemoglobin O2 Delivery Device Liter Flow Critical Value Sodium Potassium Chloride Carbon Dioxide Anion Gap BUN Creatinine Estimated GFR POC Glucose Random Glucose Lactic Acid 2.0 Calcium Prot Corrected Calcium Phosphorus Magnesium Total Bilirubin AST ALT Alkaline Phosphatase Total Creatine Kinase CK-MB (CK-2) Troponin I Total Protein Albumin Lipase Urine Color Urine Clarity Urine pH Ur Specific [place] Urine Protein Urine Glucose (UA) Urine Ketones Urine Occult Blood Urine Nitrate Urine Bilirubin Urine Urobilinogen Ur Leukocyte Esterase Urine RBC Urine WBC Urine WBC Clumps Ur Squamous Epith Cells Ur Transition Epith Cell Ur Renal Epithelial Cell Urine Bacteria Hyaline Casts Granular Casts Urine Mucus Micro UA Comment Urine Culture Comments Nasal Screen MRSA (PCR) - Imaging Impressions Chest X-Ray 04/24/18 20:58 CONCLUSION: The right IJ line has its tip in the subclavian vein. No pneumothorax. Abdomen/Pelvis CT 04/25/18 00:00 CONCLUSION: 1. There are moderately distended air and fluid-filled loops of large bowel noted diffusely. 2. Body wall edema. 3. No focal fluid collections are identified to suggest abscess. Chest CTA 04/25/18 00:00 CONCLUSION: 1. The examination is positive for pulmonary embolus on the left. 2. Left thyroid nodule. 3. Small left pleural effusion. 4. Dilatation of the main pulmonary artery. Chest X-Ray 04/25/18 09:04 CONCLUSION: 1. Tip of the left subclavian central line low within the right atrium. No pneumothorax. 2. Right internal jugular vein central venous line unchanged. 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
[2018-04-25] MEDS: Mupirocin 2% Nasal Oint Topical Syringe EACH NARE SCH ×2 (10:51→21:14)
[2018-04-25] MEDS: Potassium Chlor 40 mEq Premix 40 MEQ/100 ML PIGGYBACK IV.SIG SCH ×2 (11:09→15:13)
--- NOTE | 2018-04-25 11:25 | P.CONGI ---
History of Present Illness Consult date: 04/25/18 Consult reason: C. Diff colitis Chief complaint: Septic Shock; Hypoxemia History of Present Illness: This is a 83 yo F who was sent from the [place] for evaluation of altered mentation ( pt with dementia but reportedly more altered), hypotension, a temperature of 93 , and low O2 sats. Pt was found to have a pulmonary embolism and is now S/P TPA yesterday. Pt is critically ill and being managed in ICU. Pt initially with a- fib RVR, currently on Amiodarone drip also on Phenylephrine for blood pressure support. Our service has been consulted to evaluate pt for C. Diff colitis, pt was recently discharged from this hospital after admission for nausea, vomiting , diarrhea. Our service was following pt during previous admission, imaging consistent with fecal impaction, pt had some enemas and laxatives with improvement. At that time she was also found to be C. Diff positive, she was discharged home on Oral Vanco and Cholestyramine for 28 days. Pt has history of dementia, unsure what her baseline mentation is, at this time she is unable to provide any history. She keeps screaming for help and screams no matter what part of her body I touch. Per RN pt has had 3 loose, yellow colored BMs for her so far today. Stool has been sent and is negative for C. Diff. <Susan Pride - Last Filed: 04/25/18 14:28> Review of Systems unobtainable due to mental status <Susan Pride - Last Filed: 04/25/18 14:28> [facility] - Medical History Medical History: Medical History (Last Updated 04/25/18 @ 10:03 by Sheila Cardozo MD) C. 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 difficile colitis UTI (urinary tract infection) Atrial fibrillation Encephalopathy due to infection Hyperlipemia Hypertension Sepsis - Surgical History Surgical History: Surgical History (Last Reviewed 04/25/18 @ 09:36 by Juan Pablo Moura) H/O abdominal surgery - Tobacco History Second Hand Smoke Exposure: No Smoking Status: Unknown if ever smoked - Alcohol History How Often Do You Have a Drink Containing Alcohol: Unable to Obtain - Substance Use History Substance History: Unable to Obtain - Travel History Recent Travel in the [place] Within the Last 8 Weeks: No Recent Travel Out of the Country Within the Last 8 Weeks: No - Immunization History Tetanus Immunization: Unable to Assess <Susan Pride - Last Filed: 04/25/18 14:28> Medications and Allergies Active Medications: Active Medications Acetaminophen (Tylenol) 650 mg PO Q6H PRN PRN Reason: PAIN 1-10 AND/OR FEVER >101F Al Hydroxide/Mg Hydroxide (Milk Of Magnesia Liq) 30 ml PO Q12H PRN PRN Reason: Mild Constipation Albuterol (Albuterol Neb (Prn)) 2.5 mg NEB Q2HR NEB PRN PRN Reason: dyspnea Albuterol (Duoneb Neb ([facility]res)) 1 ampul NEB Q4HR NEB [facility]RES Last Admin: 04/25/18 11:45 Dose: 1 ampul Bisacodyl (Dulcolax Supp) 10 mg RECTAL DAILY PRN PRN Reason: SEVERE CONSITIPATION Chlorhexidine Gluconate (Chlorhexidine 2% Cloth) 3 pack TOPICAL DAILY@0400 ANDRES Stop: 04/30/18 03:59 Last Admin: 04/25/18 04:17 Dose: 3 pack Chlorhexidine Gluconate (Chlorhexidine 2% Cloth) 3 pack TOPICAL DAILY@0400 PRN PRN Reason: Extra cloth needed Stop: 04/30/18 03:59 Famotidine (Pepcid Pf Inj) 20 mg IV.PUSH Q12HR [facility] Last Admin: 04/25/18 08:03 Dose: 20 mg Norepinephrine Bitartrate (Levophed-Dextrose 4 Mg/250 Ml Drip) 4 mg in 250 mls @ 7.5 mls/hr IV.SIG TITRATE PRN; Protocol PRN Reason: Per Protocol Last Titration: 04/24/18 23:16 Dose: 4 mcg/min, 15 mls/hr Metronidazole/Sodium Chloride (Flagyl 500 Mg Inj) 100 mls @ 100 mls/hr IV.SIG Q6H [facility] Last Admin: 04/25/18 11:09 Dose: 100 mls/hr Phenylephrine HCl 40 mg/ (Sodium Chloride) 500 mls @ 30 mls/hr IV.CONT TITRATE PRN; Protocol PRN Reason: See Protocol Last Titration: 04/25/18 12:02 Dose: 90 mcg/min, 67.5 mls/hr Albumin Human (Alburx 5% Inj) 500 mls @ 250 mls/hr IV.SIG Q6H [facility] Stop: 04/25/18 21:59 Last Infusion: 04/25/18 10:43 Dose: Infused Heparin Sodium/Dextrose (Heparin/D5w 25,000 U/250 Ml) 25,000 unit in 250 mls @ 0 mls/hr IV.CONT TITRATE PRN; Protocol PRN Reason: Per Protocol Last Admin: 04/25/18 05:00 Dose: 1,800 units/hr, 18 mls/hr Amiodarone HCl 450 mg/ (Dextrose) 250 mls @ 33.33 mls/hr IV.CONT TITRATE PRN; Protocol PRN Reason: Per Protocol Potassium Chloride 20 meq/ (Lactated Ringer's) 1,010 mls @ 125 mls/hr IV.CONT .Q8H5M [facility] Last Admin: 04/25/18 11:56 Dose: 125 mls/hr Potassium Chloride (Kcl 10 Meq Premix Inj) 10 meq in 100 mls @ 100 mls/hr IV.SIG Q1H [facility] Stop: 04/25/18 17:59 Cefepime HCl 2,000 mg/ Sodium (Chloride) 100 mls @ 200 mls/hr IV.SIG Q12H [facility] Last Infusion: 04/25/18 12:01 Dose: 200 mls/hr Potassium Chloride (Kcl 40 Meq Premix Inj) 40 meq in 100 mls @ 25 mls/hr IV.SIG Q4H [facility] Stop: 04/25/18 18:59 Last Admin: 04/25/18 11:09 Dose: 25 mls/hr Lactulose (Lactulose Liq) 30 ml PO DAILY PRN PRN Reason: SEVERE CONSITIPATION Metoclopramide HCl (Reglan Inj) 5 mg IV.PUSH Q6HR [facility]RES; Protocol Last Admin: 04/25/18 11:10 Dose: 5 mg Morphine Sulfate (Morphine Inj) 2 mg IV.PUSH Q2H PRN PRN Reason: PAIN SCALE 6 TO 10 Mupirocin (Bactroban 2% Nasal Oint) 1 applicatio EACH NARE BID [facility] Last Admin: 04/25/18 10:51 Dose: 1 applicatio Ondansetron HCl (Zofran Inj) 4 mg IV.PUSH Q6H PRN PRN Reason: NAUSEA OR VOMITING Senna/Docusate Sodium (Jeanette-Colace) 1 tab PO BID [facility] Last Admin: 04/25/18 08:04 Dose: Not Given Sennosides (Senokot) 17.2 mg PO Q12H PRN PRN Reason: Moderate Constipation Sodium Chloride (Ns Flush) 2 ml IV.FLUSH BID [facility] Last Admin: 04/25/18 08:03 Dose: 2 ml Sodium Chloride (Ns Flush) 2 ml IV.FLUSH PRN PRN PRN Reason: FLUSH AFTER USING IV ACCESS Sodium Chloride (Ns Flush) 0 ml IV.FLUSH DAILY [facility] Last Admin: 04/25/18 10:51 Dose: 10 ml Terbutaline Sulfate (Brethine Inj) 1 mg SQ UNSCH PRN PRN Reason: For Extravasation Vancomycin HCl (Vancomycin Po) 250 mg PO QID [facility] Last Admin: 04/25/18 12:01 Dose: 250 mg <Danita Rocha - Last Filed: 04/25/18 12:52> Active Medications: Active Medications Acetaminophen (Tylenol) 650 mg PO Q6H PRN PRN Reason: PAIN 1-10 AND/OR FEVER >101F Al Hydroxide/Mg Hydroxide (Milk Of Magnesia Liq) 30 ml PO Q12H PRN PRN Reason: Mild Constipation Albuterol (Albuterol Neb (Prn)) 2.5 mg NEB Q2HR NEB PRN PRN Reason: dyspnea Albuterol (Duoneb Neb ([facility])) 1 ampul NEB Q4HR NEB [facility] Bisacodyl (Dulcolax Supp) 10 mg RECTAL DAILY PRN PRN Reason: SEVERE CONSITIPATION Chlorhexidine Gluconate (Chlorhexidine 2% Cloth) 3 pack TOPICAL DAILY@0400 [facility] Stop: 04/30/18 03:59 Last Admin: 04/25/18 04:17 Dose: 3 pack Chlorhexidine Gluconate (Chlorhexidine 2% Cloth) 3 pack TOPICAL DAILY@0400 PRN PRN Reason: Extra cloth needed Stop: 04/30/18 03:59 Famotidine (Pepcid Pf Inj) 20 mg IV.PUSH Q12HR [facility] Last Admin: 04/25/18 08:03 Dose: 20 mg Norepinephrine Bitartrate (Levophed-Dextrose 4 Mg/250 Ml Drip) 4 mg in 250 mls @ 7.5 mls/hr IV.SIG TITRATE PRN; Protocol PRN Reason: Per Protocol Last Titration: 04/24/18 23:16 Dose: 4 mcg/min, 15 mls/hr Metronidazole/Sodium Chloride (Flagyl 500 Mg Inj) 100 mls @ 100 mls/hr IV.SIG Q6H [facility] Last Infusion: 04/25/18 06:37 Dose: Infused Phenylephrine HCl 40 mg/ (Sodium Chloride) 500 mls @ 30 mls/hr IV.CONT TITRATE PRN; Protocol PRN Reason: See Protocol Last Admin: 04/25/18 09:22 Dose: 110 mcg/min, 82.5 mls/hr Albumin Human (Alburx 5% Inj) 500 mls @ 250 mls/hr IV.SIG Q6H [facility] Stop: 04/25/18 21:59 Last Infusion: 04/25/18 10:43 Dose: Infused Heparin Sodium/Dextrose (Heparin/D5w 25,000 U/250 Ml) 25,000 unit in 250 mls @ 0 mls/hr IV.CONT TITRATE PRN; Protocol PRN Reason: Per Protocol Last Admin: 04/25/18 05:00 Dose: 1,800 units/hr, 18 mls/hr Amiodarone HCl 450 mg/ (Dextrose) 250 mls @ 33.33 mls/hr IV.CONT TITRATE PRN; Protocol PRN Reason: Per Protocol Potassium Chloride 20 meq/ (Lactated Ringer's) 1,010 mls @ 125 mls/hr IV.CONT .Q8H5M [facility] Potassium Chloride (Kcl 10 Meq Premix Inj) 10 meq in 100 mls @ 100 mls/hr IV.SIG Q1H [facility] Stop: 04/25/18 17:59 Cefepime HCl 2,000 mg/ Sodium (Chloride) 100 mls @ 200 mls/hr IV.SIG Q12H [facility] Potassium Chloride (Kcl 40 Meq Premix Inj) 40 meq in 100 mls @ 25 mls/hr IV.SIG Q4H [facility] Stop: 04/25/18 18:59 Lactulose (Lactulose Liq) 30 ml PO DAILY PRN PRN Reason: SEVERE CONSITIPATION Metoclopramide HCl (Reglan Inj) 5 mg IV.PUSH Q6HR [facility]; Protocol Last Admin: 04/25/18 05:00 Dose: 5 mg Morphine Sulfate (Morphine Inj) 2 mg IV.PUSH Q2H PRN PRN Reason: PAIN SCALE 6 TO 10 Mupirocin (Bactroban 2% Nasal Oint) 1 applicatio EACH NARE BID [facility] Last Admin: 04/25/18 10:51 Dose: 1 applicatio Ondansetron HCl (Zofran Inj) 4 mg IV.PUSH Q6H PRN PRN Reason: NAUSEA OR VOMITING Senna/Docusate Sodium (Jeanette-Colace) 1 tab PO BID [facility] Last Admin: 04/25/18 08:04 Dose: Not Given Sennosides (Senokot) 17.2 mg PO Q12H PRN PRN Reason: Moderate Constipation Sodium Chloride (Ns Flush) 2 ml IV.FLUSH BID [facility] Last Admin: 04/25/18 08:03 Dose: 2 ml Sodium Chloride (Ns Flush) 2 ml IV.FLUSH PRN PRN PRN Reason: FLUSH AFTER USING IV ACCESS Sodium Chloride (Ns Flush) 0 ml IV.FLUSH DAILY [facility] Last Admin: 04/25/18 10:51 Dose: 10 ml Terbutaline Sulfate (Brethine Inj) 1 mg SQ UNSCH PRN PRN Reason: For Extravasation Vancomycin HCl (Vancomycin Po) 250 mg PO QID [facility] Last Admin: 04/25/18 08:03 Dose: 250 mg <Susan Pride - Last Filed: 04/25/18 14:28> Allergies Allergy/AdvReac Type Severity Reaction Status Date / Time No Known Allergies Allergy none Uncoded 04/17/18 13:51 Home Medications Medication Instructions Recorded Confirmed Type diltiazem HCl [Cartia XT] 240 mg PO DAILY 04/11/18 04/11/18 History potassium 10 meq PO DAILY 04/11/18 04/11/18 History Exam Vital signs: Vital Signs 04/24/18 21:05 04/24/18 21:22 08/07/18 21:42 Temperature Pulse Rate 106 H 132 H 109 H Respiratory Rate 22 21 22 Blood Pressure 70/59 L 86/50 L 90/58 L Pulse Oximetry 100 97 97 04/24/18 22:02 04/24/18 22:06 04/24/18 23:27 Temperature 100 F H Pulse Rate 108 H 137 H Respiratory Rate Blood Pressure 92/52 L 85/57 L Pulse Oximetry 04/25/18 00:01 04/25/18 00:10 04/25/18 00:16 Temperature Pulse Rate 149 H 150 H Respiratory Rate 21 20 Blood Pressure 122/92 H 119/61 Pulse Oximetry 100 85 L 04/25/18 00:20 04/25/18 00:25 04/25/18 00:34 Temperature Pulse Rate 145 H 146 H 141 H Respiratory Rate 21 22 20 Blood Pressure 112/53 L 116/51 L 120/57 L Pulse Oximetry 04/25/18 00:40 04/25/18 00:45 04/25/18 00:53 Temperature Pulse Rate 138 H 144 H 134 H Respiratory Rate 29 H 20 22 Blood Pressure 137/73 125/61 90/51 L Pulse Oximetry 04/25/18 00:54 04/25/18 00:55 04/25/18 00:57 Temperature Pulse Rate 127 H 133 H Respiratory Rate 19 20 Blood Pressure 102/46 L 97/55 L Pulse Oximetry 04/25/18 01:00 04/25/18 01:05 04/25/18 01:11 Temperature 99.3 F 99.3 F Pulse Rate 126 H 125 H 130 H Respiratory Rate 17 20 19 Blood Pressure 96/50 L 113/72 111/49 L Pulse Oximetry 100 04/25/18 01:15 04/25/18 01:20 04/25/18 01:25 Temperature Pulse Rate 136 H 129 H 131 H Respiratory Rate 17 18 17 Blood Pressure 99/58 L 94/50 L 95/54 L Pulse Oximetry 100 100 100 04/25/18 01:30 04/25/18 01:35 04/25/18 01:46 Temperature Pulse Rate 125 H 130 H 129 H Respiratory Rate 18 17 19 Blood Pressure 89/51 L 88/50 L 98/49 L Pulse Oximetry 100 100 99 04/25/18 01:50 04/25/18 02:00 04/25/18 02:11 Temperature Pulse Rate 126 H 122 H 128 H Respiratory Rate 22 20 22 Blood Pressure 95/51 L 90/53 L 75/35 L Pulse Oximetry 100 100 100 04/25/18 02:12 04/25/18 02:20 04/25/18 02:30 Temperature Pulse Rate 125 H 118 H 119 H Respiratory Rate 17 25 H 17 Blood Pressure 63/37 L 70/40 L 78/43 L Pulse Oximetry 99 100 97 04/25/18 02:41 04/25/18 02:45 04/25/18 02:51 Temperature Pulse Rate 110 H 112 H 77 Respiratory Rate 18 18 16 Blood Pressure 77/38 L 69/45 L 115/55 L Pulse Oximetry 99 100 100 04/25/18 02:53 04/25/18 03:00 04/25/18 03:05 Temperature Pulse Rate 80 82 77 Respiratory Rate 15 19 17 Blood Pressure 127/60 106/53 L 102/51 L Pulse Oximetry 100 92 L 100 04/25/18 03:10 04/25/18 03:20 04/25/18 03:31 Temperature Pulse Rate 69 63 61 Respiratory Rate 16 15 13 Blood Pressure 108/58 L 112/59 L 123/67 Pulse Oximetry 100 100 100 04/25/18 03:40 04/25/18 03:50 04/25/18 04:00 Temperature Pulse Rate 76 61 64 Respiratory Rate 17 13 14 Blood Pressure 116/55 L 124/59 L 122/59 L Pulse Oximetry 100 100 100 04/25/18 04:10 04/25/18 04:22 04/25/18 05:00 Temperature Pulse Rate 65 74 75 Respiratory Rate 15 15 17 Blood Pressure 115/57 L 107/60 Pulse Oximetry 100 100 100 04/25/18 05:15 04/25/18 05:20 04/25/18 05:31 Temperature Pulse Rate 79 93 H 77 Respiratory Rate 18 15 16 Blood Pressure 96/54 L 94/46 L 79/43 L Pulse Oximetry 100 100 98 04/25/18 05:45 04/25/18 06:00 04/25/18 06:07 Temperature Pulse Rate 70 67 75 Respiratory Rate 14 13 18 Blood Pressure 87/49 L 82/46 L 85/53 L Pulse Oximetry 98 100 100 04/25/18 06:08 04/25/18 06:09 04/25/18 06:10 Temperature Pulse Rate 78 77 76 Respiratory Rate 18 19 16 Blood Pressure 86/50 L 80/51 L 79/46 L Pulse Oximetry 100 100 99 04/25/18 06:15 04/25/18 06:30 04/25/18 06:45 Temperature Pulse Rate 76 78 73 Respiratory Rate 18 17 16 Blood Pressure 86/50 L 92/55 L 93/51 L Pulse Oximetry 100 100 100 04/25/18 07:00 04/25/18 07:12 04/25/18 07:16 Temperature Pulse Rate 67 78 84 Respiratory Rate 19 21 20 Blood Pressure 86/51 L 90/47 L 95/59 L Pulse Oximetry 95 100 86 L 04/25/18 09:02 04/25/18 11:45 04/25/18 12:14 Temperature Pulse Rate 66 Respiratory Rate 18 Blood Pressure Pulse Oximetry 99 99 Intake & Output 04/24/18 04/25/18 04/25/18 18:59 06:59 18:59 Intake Total 4370 / 4370 1000 / 1000 Output Total 1810 / 1810 Balance 2560 / 2560 1000 / 1000 Weight 99.3 kg Intake: IV 4370 / 4370 1000 / 1000 Neosynephrine Inj 40 MG In NS 500 / 500 Inj 496 ML @ 40 MCG/MIN 30 mls/ hr IV.CONT TITRATE PRN Rx#: [id number] NS Inj 1,000 ML @ 184 mls/hr IV 1000 / 1000 .CONT .Q5H27M [facility] Rx#:[id number] Alburx 5% Inj 500 ML @ 250 mls/ 500 / 500 500 / 500 hr IV.SIG Q6H [facility] Rx#:[id number] Activase Inj 100 MG In Sterile 100 / 100 Water for Inj 100 ML @ 50 mls/ hr IV.SIG ONCE ONE Rx#:[id number] Cordarone Inj 150 MG In D5W Inj 100 / 100 97 ML @ 600 mls/hr IV.SIG ONCE ONE Rx#:[id number] Calcium Chloride Inj 2 GM In NS 120 / 120 Inj 100 ML @ 120 mls/hr IV.SIG ONCE ONE Rx#:[id number] Maxipime Inj 2,000 MG In NS Inj 100 / 100 100 ML @ 200 mls/hr IV.SIG ONCE ONE Rx#:[id number] NS Inj 1,000 ML @ Wide Open IV. 1999 SIG BOLUS ONE Rx#:[id number] Vancomycin Inj 1,000 MG In NS 250 / 250 Inj 250 ML @ 250 mls/hr IV.SIG ONCE ONE Rx#:[id number] Flagyl 500 MG Inj 100 ML @ 100 200 / 200 mls/hr IV.SIG Q6H [facility] Rx#: [id number] Output: Urine 960 / 960 Urine Amount (Catheter) 850 / 850 Indwelling Urethral Catheter 850 / 850 Other: Date of Last Bowel Movement 04/25/18 # Bowel Movements 0 Weight On Admission 99.3 kg <Danita Rocha - Last Filed: 04/25/18 12:52> Vital signs: Vital Signs 04/24/18 21:05 04/24/18 21:22 04/24/18 21:42 Temperature Pulse Rate 106 H 132 H 109 H Respiratory Rate 22 21 22 Blood Pressure 70/59 L 86/50 L 90/58 L Pulse Oximetry 100 97 97 04/24/18 22:02 04/24/18 22:06 04/24/18 23:27 Temperature 100 F H Pulse Rate 108 H 137 H Respiratory Rate Blood Pressure 92/52 L 85/57 L Pulse Oximetry 04/25/18 00:01 04/25/18 00:10 04/25/18 00:16 Temperature Pulse Rate 149 H 150 H Respiratory Rate 21 20 Blood Pressure 122/92 H 119/61 Pulse Oximetry 100 85 L 04/25/18 00:20 04/25/18 00:25 04/25/18 00:34 Temperature Pulse Rate 145 H 146 H 141 H Respiratory Rate 21 22 20 Blood Pressure 112/53 L 116/51 L 120/57 L Pulse Oximetry 04/25/18 00:40 04/25/18 00:45 04/25/18 00:53 Temperature Pulse Rate 138 H 144 H 134 H Respiratory Rate 29 H 20 22 Blood Pressure 137/73 125/61 90/51 L Pulse Oximetry 04/25/18 00:54 04/25/18 00:55 04/25/18 00:57 Temperature Pulse Rate 127 H 133 H Respiratory Rate 19 20 Blood Pressure 102/46 L 97/55 L Pulse Oximetry 04/25/18 01:00 04/25/18 01:05 04/25/18 01:11 Temperature 99.3 F 99.3 F Pulse Rate 126 H 125 H 130 H Respiratory Rate 17 20 19 Blood Pressure 96/50 L 113/72 111/49 L Pulse Oximetry 100 04/25/18 01:15 04/25/18 01:20 04/25/18 01:25 Temperature Pulse Rate 136 H 129 H 131 H Respiratory Rate 17 18 17 Blood Pressure 99/58 L 94/50 L 95/54 L Pulse Oximetry 100 100 100 04/25/18 01:30 04/25/18 01:35 04/25/18 01:46 Temperature Pulse Rate 125 H 130 H 129 H Respiratory Rate 18 17 19 Blood Pressure 89/51 L 88/50 L 98/49 L Pulse Oximetry 100 100 99 04/25/18 01:50 04/25/18 02:00 04/25/18 02:11 Temperature Pulse Rate 126 H 122 H 128 H Respiratory Rate 22 20 22 Blood Pressure 95/51 L 90/53 L 75/35 L Pulse Oximetry 100 100 100 04/25/18 02:12 04/25/18 02:20 04/25/18 02:30 Temperature Pulse Rate 125 H 118 H 119 H Respiratory Rate 17 25 H 17 Blood Pressure 63/37 L 70/40 L 78/43 L Pulse Oximetry 99 100 97 04/25/18 02:41 04/25/18 02:45 04/25/18 02:51 Temperature Pulse Rate 110 H 112 H 77 Respiratory Rate 18 18 16 Blood Pressure 77/38 L 69/45 L 115/55 L Pulse Oximetry 99 100 100 04/25/18 02:53 04/25/18 03:00 04/25/18 03:05 Temperature Pulse Rate 80 82 77 Respiratory Rate 15 19 17 Blood Pressure 127/60 106/53 L 102/51 L Pulse Oximetry 100 92 L 100 04/25/18 03:10 04/25/18 03:20 04/25/18 03:31 Temperature Pulse Rate 69 63 61 Respiratory Rate 16 15 13 Blood Pressure 108/58 L 112/59 L 123/67 Pulse Oximetry 100 100 100 04/25/18 03:40 04/25/18 03:50 04/25/18 04:00 Temperature Pulse Rate 76 61 64 Respiratory Rate 17 13 14 Blood Pressure 116/55 L 124/59 L 122/59 L Pulse Oximetry 100 100 100 04/25/18 04:10 04/25/18 04:22 04/25/18 05:00 Temperature Pulse Rate 65 74 75 Respiratory Rate 15 15 17 Blood Pressure 115/57 L 107/60 Pulse Oximetry 100 100 100 04/25/18 05:15 04/25/18 05:20 04/25/18 05:31 Temperature Pulse Rate 79 93 H 77 Respiratory Rate 18 15 16 Blood Pressure 96/54 L 94/46 L 79/43 L Pulse Oximetry 100 100 98 04/25/18 05:45 04/25/18 06:00 04/25/18 06:07 Temperature Pulse Rate 70 67 75 Respiratory Rate 14 13 18 Blood Pressure 87/49 L 82/46 L 85/53 L Pulse Oximetry 98 100 100 04/25/18 06:08 04/25/18 06:09 04/25/18 06:10 Temperature Pulse Rate 78 77 76 Respiratory Rate 18 19 16 Blood Pressure 86/50 L 80/51 L 79/46 L Pulse Oximetry 100 100 99 04/25/18 06:15 04/25/18 06:30 04/25/18 06:45 Temperature Pulse Rate 76 78 73 Respiratory Rate 18 17 16 Blood Pressure 86/50 L 92/55 L 93/51 L Pulse Oximetry 100 100 100 04/25/18 07:00 04/25/18 07:12 04/25/18 07:16 Temperature Pulse Rate 67 78 84 Respiratory Rate 19 21 20 Blood Pressure 86/51 L 90/47 L 95/59 L Pulse Oximetry 95 100 86 L 04/25/18 09:02 Temperature Pulse Rate Respiratory Rate Blood Pressure Pulse Oximetry 99 Intake & Output 04/24/18 04/25/18 04/25/18 18:59 06:59 18:59 Intake Total 4370 / 4370 1000 / 1000 Output Total 1810 / 1810 Balance 2560 / 2560 1000 / 1000 Weight 99.3 kg Intake: IV 4370 / 4370 1000 / 1000 Neosynephrine Inj 40 MG In NS 500 / 500 Inj 496 ML @ 40 MCG/MIN 30 mls/ hr IV.CONT TITRATE PRN Rx#: [id number] NS Inj 1,000 ML @ 184 mls/hr IV 1000 / 1000 .CONT .Q5H27M [facility] Rx#:[id number] Alburx 5% Inj 500 ML @ 250 mls/ 500 / 500 500 / 500 hr IV.SIG Q6H [facility] Rx#:[id number] Activase Inj 100 MG In Sterile 100 / 100 Water for Inj 100 ML @ 50 mls/ hr IV.SIG ONCE ONE Rx#:[id number] Cordarone Inj 150 MG In D5W Inj 100 / 100 97 ML @ 600 mls/hr IV.SIG ONCE ONE Rx#:[id number] Calcium Chloride Inj 2 GM In NS 120 / 120 Inj 100 ML @ 120 mls/hr IV.SIG ONCE ONE Rx#:[id number] Maxipime Inj 2,000 MG In NS Inj 100 / 100 100 ML @ 200 mls/hr IV.SIG ONCE ONE Rx#:[id number] NS Inj 1,000 ML @ Wide Open IV. 1999 / 1999 SIG BOLUS ONE Rx#:[id number] Vancomycin Inj 1,000 MG In NS 250 / 250 Inj 250 ML @ 250 mls/hr IV.SIG ONCE ONE Rx#:[id number] Flagyl 500 MG Inj 100 ML @ 100 200 / 200 mls/hr IV.SIG Q6H [facility] Rx#: [id number] Output: Urine 960 / 960 Urine Amount (Catheter) 850 / 850 Indwelling Urethral Catheter 850 / 850 Other: # Bowel Movements 0 Weight On Admission 99.3 kg - Constitutional moderate distress - Routine HEENT Exam Head: Present: normocephalic, atraumatic - Routine Cardiovascular Exam Present: irregularly irregular - Routine Abdominal Exam Present: normoactive bowel sounds, distended, firm - Routine Skin Exam Present: dry, warm - Routine Neurological Exam Present: alert. Absent: oriented X3 <Susan Pride - Last Filed: 04/25/18 14:28> Results - Labs CBC & Chem 7: 04/25/18 06:12 04/25/18 08:33 Labs: Laboratory Results - last 24 hr 04/24/18 04/24/18 04/24/18 21:12 21:28 21:28 WBC 40.3 H RBC 4.44 Hgb 12.7 Hct 38.0 MCV 85.6 MCH 28.6 MCHC 33.4 RDW 18.4 H Plt Count 215 MPV 9.5 Prelim Diff (Auto) Slide review pending Neut % (Auto) 95.2 H Lymph % (Auto) 2.5 L [place] % (Auto) 1.4 Eos % (Auto) 0.6 Baso % (Auto) 0.3 Neut # (Auto) 38.4 H Lymph # (Auto) 1.0 [place] # (Auto) 0.5 Eos # (Auto) 0.2 Baso # (Auto) 0.1 WBC Differential Manual diff final Seg Neuts % (Manual) 95 H Band Neuts % (Manual) Lymphocytes % (Manual) 1 L Monocytes % (Manual) 4 Eosinophils % (Manual) Abs Neuts (Manual) 38.3 H Differential Comment . Toxic Granulation 1+ H Toxic Vacuolation Present H Platelet Estimate Platelet Morphology PT 11.8 H D INR 1.2 APTT 32.0 H Puncture Site Left radial Patient Temperature 98.6 O2 Saturation 98 ABG pH 7.56 H* ABG pCO2 19 L* ABG pO2 251 H ABG HCO3 17 L ABG O2 Content 18.3 ABG Base Excess -5.5 L ABG Methemoglobin 0.7 Parish Test Present Hemoglobin 12.9 Carboxyhemoglobin 0.8 O2 Delivery Device Prb Liter Flow 15.00 Critical Value Yes Sodium Potassium Chloride Carbon Dioxide Anion Gap BUN Creatinine Estimated GFR POC Glucose Random Glucose Lactic Acid Calcium Prot Corrected Calcium Phosphorus Magnesium Total Bilirubin AST ALT Alkaline Phosphatase Total Creatine Kinase CK-MB (CK-2) Troponin I Total Protein Albumin Lipase Urine Color Urine Clarity Urine pH Ur Specific [place] Urine Protein Urine Glucose (UA) Urine Ketones Urine Occult Blood Urine Nitrate Urine Bilirubin Urine Urobilinogen Ur Leukocyte Esterase Urine RBC Urine WBC Urine WBC Clumps Ur Squamous Epith Cells Ur Transition Epith Cell Ur Renal Epithelial Cell Urine Bacteria Hyaline Casts Granular Casts Urine Mucus Micro UA Comment Urine Culture Comments Nasal Screen MRSA (PCR) Stl C.difficile Tox PCR St C. diff Tox Epid 027 Blood Type Blood Type Recheck Antibody Screen 04/24/18 04/24/18 04/24/18 21:28 21:28 23:04 WBC RBC Hgb Hct MCV MCH MCHC RDW Plt Count MPV Prelim Diff (Auto) Neut % (Auto) Lymph % (Auto) [place] % (Auto) Eos % (Auto) Baso % (Auto) Neut # (Auto) Lymph # (Auto) [place] # (Auto) Eos # (Auto) Baso # (Auto) WBC Differential Seg Neuts % (Manual) Band Neuts % (Manual) Lymphocytes % (Manual) Monocytes % (Manual) Eosinophils % (Manual) Abs Neuts (Manual) Differential Comment Toxic Granulation Toxic Vacuolation Platelet Estimate Platelet Morphology PT INR APTT Puncture Site Patient Temperature O2 Saturation ABG pH ABG pCO2 ABG pO2 ABG HCO3 ABG O2 Content ABG Base Excess ABG Methemoglobin [place] Test Hemoglobin Carboxyhemoglobin O2 Delivery Device Liter Flow Critical Value Sodium 129 L Potassium 4.4 Chloride 99 Carbon Dioxide 16.9 L Anion Gap 13 BUN 31 H Creatinine 0.76 Estimated GFR 73 L POC Glucose Random Glucose 104 Lactic Acid 1.5 Calcium 7.2 L* Prot Corrected Calcium 8.3 L Phosphorus Magnesium 1.7 Total Bilirubin 0.8 AST 57 H ALT 23 Alkaline Phosphatase 180 H Total Creatine Kinase 125 CK-MB (CK-2) 1.0 Troponin I 0.07 H Total Protein 5.0 L Albumin 1.4 L Lipase 27 L Urine Color Sadie Urine Clarity Cloudy H Urine pH 5.0 Ur Specific [place] 1.016 Urine Protein Negative Urine Glucose (UA) Negative Urine Ketones Negative Urine Occult Blood Negative Urine Nitrate Negative Urine Bilirubin Negative Urine Urobilinogen Less than 2 Ur Leukocyte Esterase Large H Urine RBC 11 H Urine WBC Urine WBC Clumps Many H Ur Squamous Epith Cells <1 Ur Transition Epith Cell <1 Ur Renal Epithelial Cell <1 Urine Bacteria Occasional H Hyaline Casts 74 Granular Casts 4 Urine Mucus Few H Micro UA Comment Cath-culture ind Urine Culture Comments Cath-cult indicated Nasal Screen MRSA (PCR) Stl C.difficile Tox PCR St C. diff Tox Epid 027 Blood Type Blood Type Recheck Antibody Screen 04/25/18 04/25/18 04/25/18 00:04 02:16 03:24 WBC RBC Hgb Hct MCV MCH MCHC RDW Plt Count MPV Prelim Diff (Auto) Neut % (Auto) Lymph % (Auto) [place] % (Auto) Eos % (Auto) Baso % (Auto) Neut # (Auto) Lymph # (Auto) [place] # (Auto) Eos # (Auto) Baso # (Auto) WBC Differential Seg Neuts % (Manual) Band Neuts % (Manual) Lymphocytes % (Manual) Monocytes % (Manual) Eosinophils % (Manual) Abs Neuts (Manual) Differential Comment Toxic Granulation Toxic Vacuolation Platelet Estimate Platelet Morphology PT 13.2 H INR 1.3 APTT 47.1 H D Puncture Site Patient Temperature O2 Saturation ABG pH ABG pCO2 ABG pO2 ABG HCO3 ABG O2 Content ABG Base Excess ABG Methemoglobin [place] Test Hemoglobin Carboxyhemoglobin O2 Delivery Device Liter Flow Critical Value Sodium Potassium Chloride Carbon Dioxide Anion Gap BUN Creatinine Estimated GFR POC Glucose 117 H Random Glucose Lactic Acid Calcium Prot Corrected Calcium Phosphorus Magnesium Total Bilirubin AST ALT Alkaline Phosphatase Total Creatine Kinase CK-MB (CK-2) Troponin I Total Protein Albumin Lipase Urine Color Urine Clarity Urine pH Ur Specific [place] Urine Protein Urine Glucose (UA) Urine Ketones Urine Occult Blood Urine Nitrate Urine Bilirubin Urine Urobilinogen Ur Leukocyte Esterase Urine RBC Urine WBC Urine WBC Clumps Ur Squamous Epith Cells Ur Transition Epith Cell Ur Renal Epithelial Cell Urine Bacteria Hyaline Casts Granular Casts Urine Mucus Micro UA Comment Urine Culture Comments Nasal Screen MRSA (PCR) Mrsa detected Stl C.difficile Tox PCR St C. diff Tox Epid 027 Blood Type Blood Type Recheck Antibody Screen 04/25/18 04/25/18 04/25/18 06:12 06:55 06:55 WBC 48.5 H RBC 3.31 L Hgb 9.5 L D Hct 28.6 L MCV 86.3 MCH 28.6 MCHC 33.1 RDW 18.4 H Plt Count 150 D MPV 8.3 Prelim Diff (Auto) Manual diff required Neut % (Auto) Lymph % (Auto) [place] % (Auto) Eos % (Auto) Baso % (Auto) Neut # (Auto) Lymph # (Auto) [place] # (Auto) Eos # (Auto) Baso # (Auto) WBC Differential Manual diff final Seg Neuts % (Manual) 83 H Band Neuts % (Manual) 15 H Lymphocytes % (Manual) Monocytes % (Manual) 1 Eosinophils % (Manual) 1 Abs Neuts (Manual) 47.5 H Differential Comment . Toxic Granulation Toxic Vacuolation Present H Platelet Estimate Normal Platelet Morphology Normal PT 18.1 H INR 1.8 APTT 69.6 H D Puncture Site Patient Temperature O2 Saturation ABG pH ABG pCO2 ABG pO2 ABG HCO3 ABG O2 Content ABG Base Excess ABG Methemoglobin [place] Test Hemoglobin Carboxyhemoglobin O2 Delivery Device Liter Flow Critical Value Sodium 138 Potassium 2.2 L* D Chloride 106 Carbon Dioxide 18.5 L Anion Gap 14 BUN 28 H Creatinine 0.51 Estimated GFR Greater than 89 POC Glucose Random Glucose 137 H Lactic Acid Calcium 7.6 L Prot Corrected Calcium Phosphorus 2.8 Magnesium 1.5 Total Bilirubin 1.3 H AST 20 ALT 13 Alkaline Phosphatase 109 Total Creatine Kinase CK-MB (CK-2) Troponin I Total Protein 3.7 L D Albumin 1.7 L Lipase Urine Color Urine Clarity Urine pH Ur Specific [place] Urine Protein Urine Glucose (UA) Urine Ketones Urine Occult Blood Urine Nitrate Urine Bilirubin Urine Urobilinogen Ur Leukocyte Esterase Urine RBC Urine WBC Urine WBC Clumps Ur Squamous Epith Cells Ur Transition Epith Cell Ur Renal Epithelial Cell Urine Bacteria Hyaline Casts Granular Casts Urine Mucus Micro UA Comment Urine Culture Comments Nasal Screen MRSA (PCR) Stl C.difficile Tox PCR St C. diff Tox Epid 027 Blood Type Blood Type Recheck Antibody Screen 04/25/18 04/25/18 04/25/18 06:55 07:15 08:33 WBC RBC Hgb Hct MCV MCH MCHC RDW Plt Count MPV Prelim Diff (Auto) Neut % (Auto) Lymph % (Auto) [place] % (Auto) Eos % (Auto) Baso % (Auto) Neut # (Auto) Lymph # (Auto) [place] # (Auto) Eos # (Auto) Baso # (Auto) WBC Differential Seg Neuts % (Manual) Band Neuts % (Manual) Lymphocytes % (Manual) Monocytes % (Manual) Eosinophils % (Manual) Abs Neuts (Manual) Differential Comment Toxic Granulation Toxic Vacuolation Platelet Estimate Platelet Morphology PT INR APTT Puncture Site Patient Temperature O2 Saturation ABG pH ABG pCO2 ABG pO2 ABG HCO3 ABG O2 Content ABG Base Excess ABG Methemoglobin [place] Test Hemoglobin Carboxyhemoglobin O2 Delivery Device Liter Flow Critical Value Sodium Potassium 2.1 L* Chloride Carbon Dioxide Anion Gap BUN Creatinine Estimated GFR POC Glucose Random Glucose Lactic Acid 2.0 Calcium Prot Corrected Calcium Phosphorus Magnesium Total Bilirubin AST ALT Alkaline Phosphatase Total Creatine Kinase CK-MB (CK-2) Troponin I Total Protein Albumin Lipase Urine Color Urine Clarity Urine pH Ur Specific [place] Urine Protein Urine Glucose (UA) Urine Ketones Urine Occult Blood Urine Nitrate Urine Bilirubin Urine Urobilinogen Ur Leukocyte Esterase Urine RBC Urine WBC Urine WBC Clumps Ur Squamous Epith Cells Ur Transition Epith Cell Ur Renal Epithelial Cell Urine Bacteria Hyaline Casts Granular Casts Urine Mucus Micro UA Comment Urine Culture Comments Nasal Screen MRSA (PCR) Stl C.difficile Tox PCR Negative St C. diff Tox Epid 027 Negative Blood Type Blood Type Recheck Antibody Screen 04/25/18 10:20 WBC RBC Hgb Hct MCV MCH MCHC RDW Plt Count MPV Prelim Diff (Auto) Neut % (Auto) Lymph % (Auto) [place] % (Auto) Eos % (Auto) Baso % (Auto) Neut # (Auto) Lymph # (Auto) [place] # (Auto) Eos # (Auto) Baso # (Auto) WBC Differential Seg Neuts % (Manual) Band Neuts % (Manual) Lymphocytes % (Manual) Monocytes % (Manual) Eosinophils % (Manual) Abs Neuts (Manual) Differential Comment Toxic Granulation Toxic Vacuolation Platelet Estimate Platelet Morphology PT INR APTT Puncture Site Patient Temperature O2 Saturation ABG pH ABG pCO2 ABG pO2 ABG HCO3 ABG O2 Content ABG Base Excess ABG Methemoglobin [place] Test Hemoglobin Carboxyhemoglobin O2 Delivery Device Liter Flow Critical Value Sodium Potassium Chloride Carbon Dioxide Anion Gap BUN Creatinine Estimated GFR POC Glucose Random Glucose Lactic Acid Calcium Prot Corrected Calcium Phosphorus Magnesium Total Bilirubin AST ALT Alkaline Phosphatase Total Creatine Kinase CK-MB (CK-2) Troponin I Total Protein Albumin Lipase Urine Color Urine Clarity Urine pH Ur Specific [place] Urine Protein Urine Glucose (UA) Urine Ketones Urine Occult Blood Urine Nitrate Urine Bilirubin Urine Urobilinogen Ur Leukocyte Esterase Urine RBC Urine WBC Urine WBC Clumps Ur Squamous Epith Cells Ur Transition Epith Cell Ur Renal Epithelial Cell Urine Bacteria Hyaline Casts Granular Casts Urine Mucus Micro UA Comment Urine Culture Comments Nasal Screen MRSA (PCR) Stl C.difficile Tox PCR St C. diff Tox Epid 027 Blood Type A Positive Blood Type Recheck Required Antibody Screen Negative - Imaging Impressions Chest X-Ray 04/24/18 20:58 CONCLUSION: The right IJ line has its tip in the subclavian vein. No pneumothorax. Abdomen/Pelvis CT 04/25/18 00:00 CONCLUSION: 1. There are moderately distended air and fluid-filled loops of large bowel noted diffusely. 2. Body wall edema. 3. No focal fluid collections are identified to suggest abscess. Chest CTA 04/25/18 00:00 CONCLUSION: 1. The examination is positive for pulmonary embolus on the left. 2. Left thyroid nodule. 3. Small left pleural effusion. 4. Dilatation of the main pulmonary artery. Chest X-Ray 04/25/18 09:04 CONCLUSION: 1. Tip of the left subclavian central line low within the right atrium. No pneumothorax. 2. Right internal jugular vein central venous line unchanged. <Danita Rocha - Last Filed: 04/25/18 12:52> - Labs CBC & Chem 7: 04/25/18 06:12 04/25/18 08:33 Labs: Laboratory Results - last 24 hr 04/24/18 04/24/18 04/24/18 21:12 21:28 21:28 WBC 40.3 H RBC 4.44 Hgb 12.7 Hct 38.0 MCV 85.6 MCH 28.6 MCHC 33.4 RDW 18.4 H Plt Count 215 MPV 9.5 Prelim Diff (Auto) Slide review pending Neut % (Auto) 95.2 H Lymph % (Auto) 2.5 L [place] % (Auto) 1.4 Eos % (Auto) 0.6 Baso % (Auto) 0.3 Neut # (Auto) 38.4 H Lymph # (Auto) 1.0 [place] # (Auto) 0.5 Eos # (Auto) 0.2 Baso # (Auto) 0.1 WBC Differential Manual diff final Seg Neuts % (Manual) 95 H Band Neuts % (Manual) Lymphocytes % (Manual) 1 L Monocytes % (Manual) 4 Eosinophils % (Manual) Abs Neuts (Manual) 38.3 H Differential Comment . Toxic Granulation 1+ H Toxic Vacuolation Present H Platelet Estimate Platelet Morphology PT 11.8 H D INR 1.2 APTT 32.0 H Puncture Site Left radial Patient Temperature 98.6 O2 Saturation 98 ABG pH 7.56 H* ABG pCO2 19 L* ABG pO2 251 H ABG HCO3 17 L ABG O2 Content 18.3 ABG Base Excess -5.5 L ABG Methemoglobin 0.7 [place] Test Present Hemoglobin 12.9 Carboxyhemoglobin 0.8 O2 Delivery Device Prb Liter Flow 15.00 Critical Value Yes Sodium Potassium Chloride Carbon Dioxide Anion Gap BUN Creatinine Estimated GFR POC Glucose Random Glucose Lactic Acid Calcium Prot Corrected Calcium Phosphorus Magnesium Total Bilirubin AST ALT Alkaline Phosphatase Total Creatine Kinase CK-MB (CK-2) Troponin I Total Protein Albumin Lipase Urine Color Urine Clarity Urine pH Ur Specific [place] Urine Protein Urine Glucose (UA) Urine Ketones Urine Occult Blood Urine Nitrate Urine Bilirubin Urine Urobilinogen Ur Leukocyte Esterase Urine RBC Urine WBC Urine WBC Clumps Ur Squamous Epith Cells Ur Transition Epith Cell Ur Renal Epithelial Cell Urine Bacteria Hyaline Casts Granular Casts Urine Mucus Micro UA Comment Urine Culture Comments Nasal Screen MRSA (PCR) Stl C.difficile Tox PCR St C. diff Tox Epid 027 04/24/18 04/24/18 04/24/18 21:28 21:28 23:04 WBC RBC Hgb Hct MCV MCH MCHC RDW Plt Count MPV Prelim Diff (Auto) Neut % (Auto) Lymph % (Auto) [place] % (Auto) Eos % (Auto) Baso % (Auto) Neut # (Auto) Lymph # (Auto) [place] # (Auto) Eos # (Auto) Baso # (Auto) WBC Differential Seg Neuts % (Manual) Band Neuts % (Manual) Lymphocytes % (Manual) Monocytes % (Manual) Eosinophils % (Manual) Abs Neuts (Manual) Differential Comment Toxic Granulation Toxic Vacuolation Platelet Estimate Platelet Morphology PT INR APTT Puncture Site Patient Temperature O2 Saturation ABG pH ABG pCO2 ABG pO2 ABG HCO3 ABG O2 Content ABG Base Excess ABG Methemoglobin [place] Test Hemoglobin Carboxyhemoglobin O2 Delivery Device Liter Flow Critical Value Sodium 129 L Potassium 4.4 Chloride 99 Carbon Dioxide 16.9 L Anion Gap 13 BUN 31 H Creatinine 0.76 Estimated GFR 73 L POC Glucose Random Glucose 104 Lactic Acid 1.5 Calcium 7.2 L* Prot Corrected Calcium 8.3 L Phosphorus Magnesium 1.7 Total Bilirubin 0.8 AST 57 H ALT 23 Alkaline Phosphatase 180 H Total Creatine Kinase 125 CK-MB (CK-2) 1.0 Troponin I 0.07 H Total Protein 5.0 L Albumin 1.4 L Lipase 27 L Urine Color Sadie Urine Clarity Cloudy H Urine pH 5.0 Ur Specific [place] 1.016 Urine Protein Negative Urine Glucose (UA) Negative Urine Ketones Negative Urine Occult Blood Negative Urine Nitrate Negative Urine Bilirubin Negative Urine Urobilinogen Less than 2 Ur Leukocyte Esterase Large H Urine RBC 11 H Urine WBC Urine WBC Clumps Many H Ur Squamous Epith Cells <1 Ur Transition Epith Cell <1 Ur Renal Epithelial Cell <1 Urine Bacteria Occasional H Hyaline Casts 74 Granular Casts 4 Urine Mucus Few H Micro UA Comment Cath-culture ind Urine Culture Comments Cath-cult indicated Nasal Screen MRSA (PCR) Stl C.difficile Tox PCR St C. diff Tox Epid 027 04/25/18 04/25/18 04/25/18 00:04 02:16 03:24 WBC RBC Hgb Hct MCV MCH MCHC RDW Plt Count MPV Prelim Diff (Auto) Neut % (Auto) Lymph % (Auto) [place] % (Auto) Eos % (Auto) Baso % (Auto) Neut # (Auto) Lymph # (Auto) [place] # (Auto) Eos # (Auto) Baso # (Auto) WBC Differential Seg Neuts % (Manual) Band Neuts % (Manual) Lymphocytes % (Manual) Monocytes % (Manual) Eosinophils % (Manual) Abs Neuts (Manual) Differential Comment Toxic Granulation Toxic Vacuolation Platelet Estimate Platelet Morphology PT 13.2 H INR 1.3 APTT 47.1 H D Puncture Site Patient Temperature O2 Saturation ABG pH ABG pCO2 ABG pO2 ABG HCO3 ABG O2 Content ABG Base Excess ABG Methemoglobin [place] Test Hemoglobin Carboxyhemoglobin O2 Delivery Device Liter Flow Critical Value Sodium Potassium Chloride Carbon Dioxide Anion Gap BUN Creatinine Estimated GFR POC Glucose 117 H Random Glucose Lactic Acid Calcium Prot Corrected Calcium Phosphorus Magnesium Total Bilirubin AST ALT Alkaline Phosphatase Total Creatine Kinase CK-MB (CK-2) Troponin I Total Protein Albumin Lipase Urine Color Urine Clarity Urine pH Ur Specific [place] Urine Protein Urine Glucose (UA) Urine Ketones Urine Occult Blood Urine Nitrate Urine Bilirubin Urine Urobilinogen Ur Leukocyte Esterase Urine RBC Urine WBC Urine WBC Clumps Ur Squamous Epith Cells Ur Transition Epith Cell Ur Renal Epithelial Cell Urine Bacteria Hyaline Casts Granular Casts Urine Mucus Micro UA Comment Urine Culture Comments Nasal Screen MRSA (PCR) Mrsa detected Stl C.difficile Tox PCR St C. diff Tox Epid 027 04/25/18 04/25/18 04/25/18 06:12 06:55 06:55 WBC 48.5 H RBC 3.31 L Hgb 9.5 L D Hct 28.6 L MCV 86.3 MCH 28.6 MCHC 33.1 RDW 18.4 H Plt Count 150 D MPV 8.3 Prelim Diff (Auto) Manual diff required Neut % (Auto) Lymph % (Auto) [place] % (Auto) Eos % (Auto) Baso % (Auto) Neut # (Auto) Lymph # (Auto) [place] # (Auto) Eos # (Auto) Baso # (Auto) WBC Differential Manual diff final Seg Neuts % (Manual) 83 H Band Neuts % (Manual) 15 H Lymphocytes % (Manual) Monocytes % (Manual) 1 Eosinophils % (Manual) 1 Abs Neuts (Manual) 47.5 H Differential Comment . Toxic Granulation Toxic Vacuolation Present H Platelet Estimate Normal Platelet Morphology Normal PT 18.1 H INR 1.8 APTT 69.6 H D Puncture Site Patient Temperature O2 Saturation ABG pH ABG pCO2 ABG pO2 ABG HCO3 ABG O2 Content ABG Base Excess ABG Methemoglobin [place] Test Hemoglobin Carboxyhemoglobin O2 Delivery Device Liter Flow Critical Value Sodium 138 Potassium 2.2 L* D Chloride 106 Carbon Dioxide 18.5 L Anion Gap 14 BUN 28 H Creatinine 0.51 Estimated GFR Greater than 89 POC Glucose Random Glucose 137 H Lactic Acid Calcium 7.6 L Prot Corrected Calcium Phosphorus 2.8 Magnesium 1.5 Total Bilirubin 1.3 H AST 20 ALT 13 Alkaline Phosphatase 109 Total Creatine Kinase CK-MB (CK-2) Troponin I Total Protein 3.7 L D Albumin 1.7 L Lipase Urine Color Urine Clarity Urine pH Ur Specific [place] Urine Protein Urine Glucose (UA) Urine Ketones Urine Occult Blood Urine Nitrate Urine Bilirubin Urine Urobilinogen Ur Leukocyte Esterase Urine RBC Urine WBC Urine WBC Clumps Ur Squamous Epith Cells Ur Transition Epith Cell Ur Renal Epithelial Cell Urine Bacteria Hyaline Casts Granular Casts Urine Mucus Micro UA Comment Urine Culture Comments Nasal Screen MRSA (PCR) Stl C.difficile Tox PCR St C. diff Tox Epid 027 04/25/18 04/25/18 04/25/18 06:55 07:15 08:33 WBC RBC Hgb Hct MCV MCH MCHC RDW Plt Count MPV Prelim Diff (Auto) Neut % (Auto) Lymph % (Auto) [place] % (Auto) Eos % (Auto) Baso % (Auto) Neut # (Auto) Lymph # (Auto) [place] # (Auto) Eos # (Auto) Baso # (Auto) WBC Differential Seg Neuts % (Manual) Band Neuts % (Manual) Lymphocytes % (Manual) Monocytes % (Manual) Eosinophils % (Manual) Abs Neuts (Manual) Differential Comment Toxic Granulation Toxic Vacuolation Platelet Estimate Platelet Morphology PT INR APTT Puncture Site Patient Temperature O2 Saturation ABG pH ABG pCO2 ABG pO2 ABG HCO3 ABG O2 Content ABG Base Excess ABG Methemoglobin [place] Test Hemoglobin Carboxyhemoglobin O2 Delivery Device Liter Flow Critical Value Sodium Potassium 2.1 L* Chloride Carbon Dioxide Anion Gap BUN Creatinine Estimated GFR POC Glucose Random Glucose Lactic Acid 2.0 Calcium Prot Corrected Calcium Phosphorus Magnesium Total Bilirubin AST ALT Alkaline Phosphatase Total Creatine Kinase CK-MB (CK-2) Troponin I Total Protein Albumin Lipase Urine Color Urine Clarity Urine pH Ur Specific [place] Urine Protein Urine Glucose (UA) Urine Ketones Urine Occult Blood Urine Nitrate Urine Bilirubin Urine Urobilinogen Ur Leukocyte Esterase Urine RBC Urine WBC Urine WBC Clumps Ur Squamous Epith Cells Ur Transition Epith Cell Ur Renal Epithelial Cell Urine Bacteria Hyaline Casts Granular Casts Urine Mucus Micro UA Comment Urine Culture Comments Nasal Screen MRSA (PCR) Stl C.difficile Tox PCR Negative St C. diff Tox Epid 027 Negative - Imaging Impressions Chest X-Ray 04/24/18 20:58 CONCLUSION: The right IJ line has its tip in the subclavian vein. No pneumothorax. Abdomen/Pelvis CT 04/25/18 00:00 CONCLUSION: 1. There are moderately distended air and fluid-filled loops of large bowel noted diffusely. 2. Body wall edema. 3. No focal fluid collections are identified to suggest abscess. Chest CTA 04/25/18 00:00 CONCLUSION: 1. The examination is positive for pulmonary embolus on the left. 2. Left thyroid nodule. 3. Small left pleural effusion. 4. Dilatation of the main pulmonary artery. Chest X-Ray 04/25/18 09:04 CONCLUSION: 1. Tip of the left subclavian central line low within the right atrium. No pneumothorax. 2. Right internal jugular vein central venous line unchanged. <Susan Pride - Last Filed: 04/25/18 14:28> Assessment and Plan - Attending Attestation seen, examined agree with above supportive care abdominal x ray in am poor prognosis overall <Danita Rocha - Last Filed: 04/25/18 12:52> - Plan Assessment: - Distended colon in setting of septic presentation with recent C. Diff concerning for toxic megacolon Electrolyte imbalance, septic appearance with leukocytosis, and hypoalbuminemia Pt with recent admission, our service was consulted for imaging showing fecal impaction- pt had presented with nausea, vomiting, diarrhea. After some enemas and laxatives pts symptoms resolved. Stool was sent which came back C. Diff positive, pt was [facility] 28 days of oral Vancomycin and Cholestyramine- pt was just discharged yesterday Sent back to hospital for altered mentation, low O2 sats, low temperature, and hypotension Our service has been consulted to evaluate for C. Diff colitis. According to RN pt has had 3 loose, yellow colored BMs since her shift that began at 7am. C. Diff testing negative. CT abdomen and pelvis W IV contrast --> There are moderately distended air and fluid-filled loops of large bowel noted diffusely. Body wall edema. No focal fluid collections are identified to suggest abscess - Pulmonary embolism S/P TPA yesterday, currently on Heparin gtt - A-fib with RVR on admission- now on Amiodarone gtt Plan: GS consult for ? toxic megacolon Palliative care consult appropriate ID following Cefepime and Flagyl Oral Vanco Further recommendations to follow Pt has been seen and examined by myself and Dr. Rocha and this note is written on her behalf <Susan Pride - Last Filed: 04/25/18 14:28>
[2018-04-25] MEDS: Potassium Chlor 10 mEq Premix 10 MEQ/100 ML PIGGYBACK IV.SIG SCH ×4 (13:00→17:01)
[2018-04-25] MEDS ORDERED: Norepinephrine Inj 4 MG/4 ML Ampul IV.CONT ONE (14:40)
[2018-04-25] MEDS ORDERED: Digoxin Inj 500 MCG/2 ML Ampul IV.PUSH ONE (14:40)
--- NOTE | 2018-04-25 15:09 | P.CONGS ---
[facility] Gen Surgery Consult Note Consult date: 04/25/18 Reason for consult: other (elevated WBC; c diff colitis; evaluation for toxic jose m colon) Narrative: This is an 83 year old female with a past medical history of atrial fibrillation , hyperlipidemia and hypertension. The patient was recently hospitalized for hyperkalemia and UTI. She was diagnosed with c-diff colitis during that admission. She was discharged to rehab with instructions to continue the Vancomycin by mouth. She was at the rehab facility for less than 24 hours and returned back to the hospital with altered mental status, hypotension and hypoxemia. Per reports, her temperature was [address] A [address] abdomen/pelvis was obtained which shows moderately distended air and fluid- filled loops of large bowel. A CT angiogram was obtained which does reveal a pulmonary embolism. Per the nurse, the patient received TPA last night. She has been started on a heparin drip. She has also been started on a Amiodarone drip, which has now been turned off due to bradycardia. She is on a neosynephrine drip. Of note, the patient is a poor historian and all of her medical history was obtained from the daughter at the beside. A General Surgery consultation has been requested for evaluation of possible toxic jose m colon. <Vida Chavez - Last Filed: 04/25/18 16:24> Review of Systems unobtainable due to mental status <Vida Chavez - Last Filed: 04/25/18 16:24> [facility] - History History Provided By: Medical Record - Medical History Medical History: Medical History (Last Reviewed 04/25/18 @ 14:52 by PATSY Lee) C. difficile colitis UTI (urinary tract infection) Atrial fibrillation Encephalopathy due to infection Hyperlipemia Hypertension Sepsis - Surgical History Surgical History: Surgical History (Last Reviewed 04/25/18 @ 15:50 by PATSY Lee) History of gastric stapling H/O abdominal surgery - Tobacco History Second Hand Smoke Exposure: No Smoking Status: Unknown if ever smoked - Alcohol History How Often Do You Have a Drink Containing Alcohol: Unable to Obtain - Substance Use History Substance History: Unable to Obtain - Travel History Recent Travel in the [place] Within the Last 8 Weeks: No Recent Travel Out of the Country Within the Last 8 Weeks: No - Immunization History Tetanus Immunization: Unable to Assess <Vida Chavez - Last Filed: 04/25/18 16:24> - Medical History Medical History: Medical History (Last Reviewed 04/25/18 @ 14:52 by PATSY Lee) C. difficile colitis UTI (urinary tract infection) Atrial fibrillation Encephalopathy due to infection Hyperlipemia Hypertension Sepsis - Surgical History Surgical History: Surgical History (Last Reviewed 04/25/18 @ 15:50 by PATSY Lee) History of gastric stapling H/O abdominal surgery <Zachary Langston - Last Filed: 04/25/18 16:33> Medications and Allergies Active Medications: Active Medications Acetaminophen (Tylenol) 650 mg PO Q6H PRN PRN Reason: PAIN 1-10 AND/OR FEVER >101F Al Hydroxide/Mg Hydroxide (Milk Of Magnnikita Liq) 30 ml PO Q12H PRN PRN Reason: Mild Constipation Albuterol (Albuterol Neb (Prn)) 2.5 mg NEB Q2HR NEB PRN PRN Reason: dyspnea Albuterol (Duoneb Neb (Andres)) 1 ampul NEB Q4HR NEB [facility] Last Admin: 04/25/18 11:45 Dose: 1 ampul Bisacodyl (Dulcolax Supp) 10 mg RECTAL DAILY PRN PRN Reason: SEVERE CONSITIPATION Chlorhexidine Gluconate (Chlorhexidine 2% Cloth) 3 pack TOPICAL DAILY@0400 [facility] Stop: 04/30/18 03:59 Last Admin: 04/25/18 04:17 Dose: 3 pack Chlorhexidine Gluconate (Chlorhexidine 2% Cloth) 3 pack TOPICAL DAILY@0400 PRN PRN Reason: Extra cloth needed Stop: 04/30/18 03:59 Famotidine (Pepcid Pf Inj) 20 mg IV.PUSH Q12HR [facility] Last Admin: 04/25/18 08:03 Dose: 20 mg Norepinephrine Bitartrate (Levophed-Dextrose 4 Mg/250 Ml Drip) 4 mg in 250 mls @ 7.5 mls/hr IV.SIG TITRATE PRN; Protocol PRN Reason: Per Protocol Last Titration: 04/24/18 23:16 Dose: 4 mcg/min, 15 mls/hr Metronidazole/Sodium Chloride (Flagyl 500 Mg Inj) 100 mls @ 100 mls/hr IV.SIG Q6H [facility] Last Infusion: 04/25/18 13:21 Dose: Infused Phenylephrine HCl 40 mg/ (Sodium Chloride) 500 mls @ 30 mls/hr IV.CONT TITRATE PRN; Protocol PRN Reason: See Protocol Last Titration: 04/25/18 12:02 Dose: 90 mcg/min, 67.5 mls/hr Albumin Human (Alburx 5% Inj) 500 mls @ 250 mls/hr IV.SIG Q6H [facility] Stop: 04/25/18 21:59 Last Admin: 04/25/18 13:00 Dose: 250 mls/hr Heparin Sodium/Dextrose (Heparin/D5w 25,000 U/250 Ml) 25,000 unit in 250 mls @ 0 mls/hr IV.CONT TITRATE PRN; Protocol PRN Reason: Per Protocol Last Admin: 04/25/18 05:00 Dose: 1,800 units/hr, 18 mls/hr Amiodarone HCl 450 mg/ (Dextrose) 250 mls @ 33.33 mls/hr IV.CONT TITRATE PRN; Protocol PRN Reason: Per Protocol Last Admin: 04/25/18 12:59 Dose: 0.5 mg/min, 16.66 mls/hr Potassium Chloride 20 meq/ (Lactated Ringer's) 1,010 mls @ 125 mls/hr IV.CONT .Q8H5M [facility] Last Admin: 04/25/18 11:56 Dose: 125 mls/hr Potassium Chloride (Kcl 10 Meq Premix Inj) 10 meq in 100 mls @ 100 mls/hr IV.SIG Q1H [facility] Stop: 04/25/18 17:59 Last Admin: 04/25/18 13:00 Dose: Not Given Cefepime HCl 2,000 mg/ Sodium (Chloride) 100 mls @ 200 mls/hr IV.SIG Q12H [facility] Last Infusion: 04/25/18 12:01 Dose: 200 mls/hr Potassium Chloride (Kcl 40 Meq Premix Inj) 40 meq in 100 mls @ 25 mls/hr IV.SIG Q4H [facility] Stop: 04/25/18 18:59 Last Admin: 04/25/18 11:09 Dose: 25 mls/hr Lactulose (Lactulose Liq) 30 ml PO DAILY PRN PRN Reason: SEVERE CONSITIPATION Metoclopramide HCl (Reglan Inj) 5 mg IV.PUSH Q6HR ANDRES; Protocol Last Admin: 04/25/18 11:10 Dose: 5 mg Morphine Sulfate (Morphine Inj) 2 mg IV.PUSH Q2H PRN PRN Reason: PAIN SCALE 6 TO 10 Mupirocin (Bactroban 2% Nasal Oint) 1 applicatio EACH NARE BID [facility] Last Admin: 04/25/18 10:51 Dose: 1 applicatio Ondansetron HCl (Zofran Inj) 4 mg IV.PUSH Q6H PRN PRN Reason: NAUSEA OR VOMITING Senna/Docusate Sodium (Jeanette-Colace) 1 tab PO BID [facility] Last Admin: 04/25/18 08:04 Dose: Not Given Sennosides (Senokot) 17.2 mg PO Q12H PRN PRN Reason: Moderate Constipation Sodium Chloride (Ns Flush) 2 ml IV.FLUSH BID [facility] Last Admin: 04/25/18 08:03 Dose: 2 ml Sodium Chloride (Ns Flush) 2 ml IV.FLUSH PRN PRN PRN Reason: FLUSH AFTER USING IV ACCESS Sodium Chloride (Ns Flush) 0 ml IV.FLUSH DAILY [facility] Last Admin: 04/25/18 10:51 Dose: 10 ml Terbutaline Sulfate (Brethine Inj) 1 mg SQ UNSCH PRN PRN Reason: For Extravasation Vancomycin HCl (Vancomycin Po) 250 mg PO QID [facility] Last Admin: 04/25/18 12:01 Dose: 250 mg <Vida Chavez - Last Filed: 04/25/18 16:24> Active Medications: Active Medications Acetaminophen (Tylenol) 650 mg PO Q6H PRN PRN Reason: PAIN 1-10 AND/OR FEVER >101F Al Hydroxide/Mg Hydroxide (Milk Of Magnesia Liq) 30 ml PO Q12H PRN PRN Reason: Mild Constipation Albuterol (Albuterol Neb (Prn)) 2.5 mg NEB Q2HR NEB PRN PRN Reason: dyspnea Albuterol (Duoneb Neb ([facility])) 1 ampul NEB Q4HR NEB [facility] Last Admin: 04/25/18 15:16 Dose: 1 ampul Bisacodyl (Dulcolax Supp) 10 mg RECTAL DAILY PRN PRN Reason: SEVERE CONSITIPATION Chlorhexidine Gluconate (Chlorhexidine 2% Cloth) 3 pack TOPICAL DAILY@0400 [facility] Stop: 04/30/18 03:59 Last Admin: 04/25/18 04:17 Dose: 3 pack Chlorhexidine Gluconate (Chlorhexidine 2% Cloth) 3 pack TOPICAL DAILY@0400 PRN PRN Reason: Extra cloth needed Stop: 04/30/18 03:59 Famotidine (Pepcid Pf Inj) 20 mg IV.PUSH Q12HR [facility] Last Admin: 04/25/18 08:03 Dose: 20 mg Norepinephrine Bitartrate (Levophed-Dextrose 4 Mg/250 Ml Drip) 4 mg in 250 mls @ 7.5 mls/hr IV.SIG TITRATE PRN; Protocol PRN Reason: Per Protocol Last Titration: 04/24/18 23:16 Dose: 4 mcg/min, 15 mls/hr Metronidazole/Sodium Chloride (Flagyl 500 Mg Inj) 100 mls @ 100 mls/hr IV.SIG Q6H [facility] Last Infusion: 04/25/18 13:21 Dose: Infused Phenylephrine HCl 40 mg/ (Sodium Chloride) 500 mls @ 30 mls/hr IV.CONT TITRATE PRN; Protocol PRN Reason: See Protocol Last Titration: 04/25/18 12:02 Dose: 90 mcg/min, 67.5 mls/hr Albumin Human (Alburx 5% Inj) 500 mls @ 250 mls/hr IV.SIG Q6H [facility] Stop: 04/25/18 21:59 Last Infusion: 04/25/18 14:56 Dose: Infused Heparin Sodium/Dextrose (Heparin/D5w 25,000 U/250 Ml) 25,000 unit in 250 mls @ 0 mls/hr IV.CONT TITRATE PRN; Protocol PRN Reason: Per Protocol Last Admin: 04/25/18 05:00 Dose: 1,800 units/hr, 18 mls/hr Amiodarone HCl 450 mg/ (Dextrose) 250 mls @ 33.33 mls/hr IV.CONT TITRATE PRN; Protocol PRN Reason: Per Protocol Last Titration: 04/25/18 14:56 Dose: 0 mg/min, 0 mls/hr Potassium Chloride 20 meq/ (Lactated Ringer's) 1,010 mls @ 125 mls/hr IV.CONT .Q8H5M [facility] Last Admin: 04/25/18 11:56 Dose: 125 mls/hr Potassium Chloride (Kcl 10 Meq Premix Inj) 10 meq in 100 mls @ 100 mls/hr IV.SIG Q1H [facility] Stop: 04/25/18 17:59 Last Admin: 04/25/18 15:05 Dose: Not Given Cefepime HCl 2,000 mg/ Sodium (Chloride) 100 mls @ 200 mls/hr IV.SIG Q12H [facility] Last Infusion: 04/25/18 14:56 Dose: Infused Potassium Chloride (Kcl 40 Meq Premix Inj) 40 meq in 100 mls @ 25 mls/hr IV.SIG Q4H [facility] Stop: 04/25/18 18:59 Last Admin: 04/25/18 15:13 Dose: 25 mls/hr Lactulose (Lactulose Liq) 30 ml PO DAILY PRN PRN Reason: SEVERE CONSITIPATION Metoclopramide HCl (Reglan Inj) 5 mg IV.PUSH Q6HR [facility]; Protocol Last Admin: 04/25/18 11:10 Dose: 5 mg Morphine Sulfate (Morphine Inj) 2 mg IV.PUSH Q2H PRN PRN Reason: PAIN SCALE 6 TO 10 Mupirocin (Bactroban 2% Nasal Oint) 1 applicatio EACH NARE BID [facility] Last Admin: 04/25/18 10:51 Dose: 1 applicatio Ondansetron HCl (Zofran Inj) 4 mg IV.PUSH Q6H PRN PRN Reason: NAUSEA OR VOMITING Padimate O ([place]) 1 applicatio TOPICAL UNSCH PRN PRN Reason: dry lips Senna/Docusate Sodium (Jeanette-Colace) 1 tab PO BID [facility] Last Admin: 04/25/18 08:04 Dose: Not Given Sennosides (Senokot) 17.2 mg PO Q12H PRN PRN Reason: Moderate Constipation Sodium Chloride (Ns Flush) 2 ml IV.FLUSH BID [facility] Last Admin: 04/25/18 08:03 Dose: 2 ml Sodium Chloride (Ns Flush) 2 ml IV.FLUSH PRN PRN PRN Reason: FLUSH AFTER USING IV ACCESS Sodium Chloride (Ns Flush) 0 ml IV.FLUSH DAILY [facility] Last Admin: 04/25/18 10:51 Dose: 10 ml Terbutaline Sulfate (Brethine Inj) 1 mg SQ UNSCH PRN PRN Reason: For Extravasation Vancomycin HCl (Vancomycin Po) 250 mg PO QID [facility] Last Admin: 04/25/18 12:01 Dose: 250 mg <Zachary Langsotn - Last Filed: 04/25/18 16:33> Allergies Allergy/AdvReac Type Severity Reaction Status Date / Time No Known Allergies Allergy none Uncoded 04/17/18 13:51 Home Medications Medication Instructions Recorded Confirmed Type diltiazem HCl [Cartia XT] 240 mg PO DAILY 04/11/18 04/11/18 History potassium 10 meq PO DAILY 04/11/18 04/11/18 History Exam Vital signs: Vital Signs 04/24/18 21:05 04/24/18 21:22 04/24/18 21:42 Temperature Pulse Rate 106 H 132 H 109 H Respiratory Rate 22 21 22 Blood Pressure 70/59 L 86/50 L 90/58 L Pulse Oximetry 100 97 97 04/24/18 22:02 04/24/18 22:06 04/24/18 23:27 Temperature 100 F H Pulse Rate 108 H 137 H Respiratory Rate Blood Pressure 92/52 L 85/57 L Pulse Oximetry 04/25/18 00:01 04/25/18 00:10 04/25/18 00:16 Temperature Pulse Rate 149 H 150 H Respiratory Rate 21 20 Blood Pressure 122/92 H 119/61 Pulse Oximetry 100 85 L 04/25/18 00:20 04/25/18 00:25 04/25/18 00:34 Temperature Pulse Rate 145 H 146 H 141 H Respiratory Rate 21 22 20 Blood Pressure 112/53 L 116/51 L 120/57 L Pulse Oximetry 04/25/18 00:40 04/25/18 00:45 04/25/18 00:53 Temperature Pulse Rate 138 H 144 H 134 H Respiratory Rate 29 H 20 22 Blood Pressure 137/73 125/61 90/51 L Pulse Oximetry 04/25/18 00:54 04/25/18 00:55 04/25/18 00:57 Temperature Pulse Rate 127 H 133 H Respiratory Rate 19 20 Blood Pressure 102/46 L 97/55 L Pulse Oximetry 04/25/18 01:00 04/25/18 01:05 04/25/18 01:11 Temperature 99.3 F 99.3 F Pulse Rate 126 H 125 H 130 H Respiratory Rate 17 20 19 Blood Pressure 96/50 L 113/72 111/49 L Pulse Oximetry 100 08/08/18 01:15 04/25/18 01:20 04/25/18 01:25 Temperature Pulse Rate 136 H 129 H 131 H Respiratory Rate 17 18 17 Blood Pressure 99/58 L 94/50 L 95/54 L Pulse Oximetry 100 100 100 04/25/18 01:30 04/25/18 01:35 04/25/18 01:46 Temperature Pulse Rate 125 H 130 H 129 H Respiratory Rate 18 17 19 Blood Pressure 89/51 L 88/50 L 98/49 L Pulse Oximetry 100 100 99 04/25/18 01:50 04/25/18 02:00 04/25/18 02:11 Temperature Pulse Rate 126 H 122 H 128 H Respiratory Rate 22 20 22 Blood Pressure 95/51 L 90/53 L 75/35 L Pulse Oximetry 100 100 100 04/25/18 02:12 04/25/18 02:20 04/25/18 02:30 Temperature Pulse Rate 125 H 118 H 119 H Respiratory Rate 17 25 H 17 Blood Pressure 63/37 L 70/40 L 78/43 L Pulse Oximetry 99 100 97 04/25/18 02:41 04/25/18 02:45 04/25/18 02:51 Temperature Pulse Rate 110 H 112 H 77 Respiratory Rate 18 18 16 Blood Pressure 77/38 L 69/45 L 115/55 L Pulse Oximetry 99 100 100 04/25/18 02:53 04/25/18 03:00 04/25/18 03:05 Temperature Pulse Rate 80 82 77 Respiratory Rate 15 19 17 Blood Pressure 127/60 106/53 L 102/51 L Pulse Oximetry 100 92 L 100 04/25/18 03:10 04/25/18 03:20 04/25/18 03:31 Temperature Pulse Rate 69 63 61 Respiratory Rate 16 15 13 Blood Pressure 108/58 L 112/59 L 123/67 Pulse Oximetry 100 100 100 04/25/18 03:40 04/25/18 03:50 04/25/18 04:00 Temperature Pulse Rate 76 61 64 Respiratory Rate 17 13 14 Blood Pressure 116/55 L 124/59 L 122/59 L Pulse Oximetry 100 100 100 04/25/18 04:10 04/25/18 04:22 04/25/18 05:00 Temperature Pulse Rate 65 74 75 Respiratory Rate 15 15 17 Blood Pressure 115/57 L 107/60 Pulse Oximetry 100 100 100 04/25/18 05:15 04/25/18 05:20 04/25/18 05:31 Temperature Pulse Rate 79 93 H 77 Respiratory Rate 18 15 16 Blood Pressure 96/54 L 94/46 L 79/43 L Pulse Oximetry 100 100 98 04/25/18 05:45 04/25/18 06:00 04/25/18 06:07 Temperature Pulse Rate 70 67 75 Respiratory Rate 14 13 18 Blood Pressure 87/49 L 82/46 L 85/53 L Pulse Oximetry 98 100 100 04/25/18 06:08 04/25/18 06:09 04/25/18 06:10 Temperature Pulse Rate 78 77 76 Respiratory Rate 18 19 16 Blood Pressure 86/50 L 80/51 L 79/46 L Pulse Oximetry 100 100 99 04/25/18 06:15 04/25/18 06:30 04/25/18 06:45 Temperature Pulse Rate 76 78 73 Respiratory Rate 18 17 16 Blood Pressure 86/50 L 92/55 L 93/51 L Pulse Oximetry 100 100 100 04/25/18 07:00 04/25/18 07:12 04/25/18 07:16 Temperature Pulse Rate 67 78 84 Respiratory Rate 19 21 20 Blood Pressure 86/51 L 90/47 L 95/59 L Pulse Oximetry 95 100 86 L 04/25/18 07:45 04/25/18 08:00 04/25/18 08:16 Temperature Pulse Rate 73 78 72 Respiratory Rate 19 19 18 Blood Pressure 85/54 L 86/51 L Pulse Oximetry 98 96 04/25/18 08:30 04/25/18 08:32 04/25/18 08:45 Temperature 97.2 F L Pulse Rate 66 69 66 Respiratory Rate 20 23 18 Blood Pressure 93/52 L 97/52 L Pulse Oximetry 90 L 86 L 100 04/25/18 09:00 04/25/18 09:01 04/25/18 09:02 Temperature Pulse Rate 63 65 Respiratory Rate 19 19 Blood Pressure 98/51 L Pulse Oximetry 100 100 99 04/25/18 09:15 04/25/18 09:30 04/25/18 09:45 Temperature Pulse Rate 65 63 66 Respiratory Rate 15 16 16 Blood Pressure 106/52 L 113/57 L 113/56 L Pulse Oximetry 100 100 100 04/25/18 10:00 04/25/18 10:16 04/25/18 10:30 Temperature Pulse Rate 70 75 70 Respiratory Rate 19 14 20 Blood Pressure 104/57 L 103/50 L 108/58 L Pulse Oximetry 98 98 100 04/25/18 10:45 04/25/18 11:00 04/25/18 11:04 Temperature Pulse Rate 61 62 66 Respiratory Rate 14 17 17 Blood Pressure 104/57 L 117/62 Pulse Oximetry 99 96 97 04/25/18 11:15 04/25/18 11:30 04/25/18 11:45 Temperature Pulse Rate 63 62 Respiratory Rate 17 14 Blood Pressure 117/56 L 96/53 L Pulse Oximetry 98 99 04/25/18 11:46 04/25/18 12:00 04/25/18 12:14 Temperature Pulse Rate 67 64 66 Respiratory Rate 19 17 18 Blood Pressure 128/59 L 110/58 L Pulse Oximetry 98 100 04/25/18 12:15 04/25/18 12:30 04/25/18 12:45 Temperature Pulse Rate 64 65 54 L Respiratory Rate 17 18 12 Blood Pressure 105/55 L 103/56 L 110/56 L Pulse Oximetry 97 99 95 04/25/18 13:00 04/25/18 13:01 04/25/18 13:15 Temperature Pulse Rate 65 60 66 Respiratory Rate 17 18 18 Blood Pressure 93/51 L 91/54 L Pulse Oximetry 94 L 97 97 Intake & Output 04/24/18 04/25/18 04/25/18 18:59 06:59 18:59 Intake Total 4370 / 4370 1100 / 1100 Output Total 1810 / 1810 Balance 2560 / 2560 1100 / 1100 Weight 99.3 kg Intake: IV 4370 / 4370 1100 / 1100 Neosynephrine Inj 40 MG In NS 500 / 500 Inj 496 ML @ 40 MCG/MIN 30 mls/ hr IV.CONT TITRATE PRN Rx#: [id number] NS Inj 1,000 ML @ 184 mls/hr IV 1000 / 1000 .CONT .Q5H27M [facility] Rx#:[id number] Alburx 5% Inj 500 ML @ 250 mls/ 500 / 500 500 / 500 hr IV.SIG Q6H [facility] Rx#:[id number] Activase Inj 100 MG In Sterile 100 / 100 Water for Inj 100 ML @ 50 mls/ hr IV.SIG ONCE ONE Rx#:[id number] Cordarone Inj 150 MG In D5W Inj 100 / 100 97 ML @ 600 mls/hr IV.SIG ONCE ONE Rx#:[id number] Calcium Chloride Inj 2 GM In NS 120 / 120 Inj 100 ML @ 120 mls/hr IV.SIG ONCE ONE Rx#:[id number] Maxipime Inj 2,000 MG In NS Inj 100 / 100 100 ML @ 200 mls/hr IV.SIG ONCE ONE Rx#:[id number] NS Inj 1,000 ML @ Wide Open IV. 1999 / 1999 SIG BOLUS ONE Rx#:[id number] Vancomycin Inj 1,000 MG In NS 250 / 250 Inj 250 ML @ 250 mls/hr IV.SIG ONCE ONE Rx#:[id number] Flagyl 500 MG Inj 100 ML @ 100 200 / 200 100 / 100 mls/hr IV.SIG Q6H [facility] Rx#: [id number] Output: Urine 960 / 960 Urine Amount (Catheter) 850 / 850 Indwelling Urethral Catheter 850 / 850 Other: Date of Last Bowel Movement 04/25/18 # Bowel Movements 0 Weight On Admission 99.3 kg Narrative: GENERAL: 83 year old critically ill female that is very hard of hearing resting in bed in no acute distress. SKIN: Several superficial skin tears on BUE. LEFT knee--- dressing in place and removed---about 1cm x 1cm open wound with weeping around periwound; drainage. Ecchymosis over chest. HEAD: Atraumatic. Normocephalic. EYES: Pupils equal and round. No scleral icterus. No injection or drainage. ENT: No nasal bleeding or discharge. Mucous membranes pink and moist. NECK: Trachea midline. CARDIOVASCULAR: Bradycardiac. RESPIRATORY: No accessory muscle use. Clear to auscultation. Breath sounds equal bilaterally. GASTROINTESTINAL: Abdomen soft, non-tender, nondistended. Obese abdomen. Striae noted. Large well healing incision. MUSCULOSKELETAL: BUE with edema. BLE with 2+ pitting edema. NEUROLOGICAL: Awake and alert. Able to respond to simple questions. PSYCHIATRIC: Appropriate mood and affect. <Vida Chavez - Last Filed: 04/25/18 16:24> Vital signs: Vital Signs 04/24/18 21:05 04/24/18 21:22 04/24/18 21:42 Temperature Pulse Rate 106 H 132 H 109 H Respiratory Rate 22 21 22 Blood Pressure 70/59 L 86/50 L 90/58 L Pulse Oximetry 100 97 97 04/24/18 22:02 04/24/18 22:06 04/24/18 23:27 Temperature 100 F H Pulse Rate 108 H 137 H Respiratory Rate Blood Pressure 92/52 L 85/57 L Pulse Oximetry 04/25/18 00:01 04/25/18 00:10 04/25/18 00:16 Temperature Pulse Rate 149 H 150 H Respiratory Rate 21 20 Blood Pressure 122/92 H 119/61 Pulse Oximetry 100 85 L 04/25/18 00:20 04/25/18 00:25 04/25/18 00:34 Temperature Pulse Rate 145 H 146 H 141 H Respiratory Rate 21 22 20 Blood Pressure 112/53 L 116/51 L 120/57 L Pulse Oximetry 04/25/18 00:40 04/25/18 00:45 04/25/18 00:53 Temperature Pulse Rate 138 H 144 H 134 H Respiratory Rate 29 H 20 22 Blood Pressure 137/73 125/61 90/51 L Pulse Oximetry 04/25/18 00:54 04/25/18 00:55 04/25/18 00:57 Temperature Pulse Rate 127 H 133 H Respiratory Rate 19 20 Blood Pressure 102/46 L 97/55 L Pulse Oximetry 04/25/18 01:00 04/25/18 01:05 04/25/18 01:11 Temperature 99.3 F 99.3 F Pulse Rate 126 H 125 H 130 H Respiratory Rate 17 20 19 Blood Pressure 96/50 L 113/72 111/49 L Pulse Oximetry 100 04/25/18 01:15 04/25/18 01:20 04/25/18 01:25 Temperature Pulse Rate 136 H 129 H 131 H Respiratory Rate 17 18 17 Blood Pressure 99/58 L 94/50 L 95/54 L Pulse Oximetry 100 100 100 04/25/18 01:30 04/25/18 01:35 04/25/18 01:46 Temperature Pulse Rate 125 H 130 H 129 H Respiratory Rate 18 17 19 Blood Pressure 89/51 L 88/50 L 98/49 L Pulse Oximetry 100 100 99 04/25/18 01:50 04/25/18 02:00 04/25/18 02:11 Temperature Pulse Rate 126 H 122 H 128 H Respiratory Rate 22 20 22 Blood Pressure 95/51 L 90/53 L 75/35 L Pulse Oximetry 100 100 100 04/25/18 02:12 04/25/18 02:20 04/25/18 02:30 Temperature Pulse Rate 125 H 118 H 119 H Respiratory Rate 17 25 H 17 Blood Pressure 63/37 L 70/40 L 78/43 L Pulse Oximetry 99 100 97 04/25/18 02:41 04/25/18 02:45 04/25/18 02:51 Temperature Pulse Rate 110 H 112 H 77 Respiratory Rate 18 18 16 Blood Pressure 77/38 L 69/45 L 115/55 L Pulse Oximetry 99 100 100 04/25/18 02:53 04/25/18 03:00 04/25/18 03:05 Temperature Pulse Rate 80 82 77 Respiratory Rate 15 19 17 Blood Pressure 127/60 106/53 L 102/51 L Pulse Oximetry 100 92 L 100 04/25/18 03:10 04/25/18 03:20 04/25/18 03:31 Temperature Pulse Rate 69 63 61 Respiratory Rate 16 15 13 Blood Pressure 108/58 L 112/59 L 123/67 Pulse Oximetry 100 100 100 04/25/18 03:40 04/25/18 03:50 04/25/18 04:00 Temperature Pulse Rate 76 61 64 Respiratory Rate 17 13 14 Blood Pressure 116/55 L 124/59 L 122/59 L Pulse Oximetry 100 100 100 04/25/18 04:10 04/25/18 04:22 04/25/18 05:00 Temperature Pulse Rate 65 74 75 Respiratory Rate 15 15 17 Blood Pressure 115/57 L 107/60 Pulse Oximetry 100 100 100 04/25/18 05:15 04/25/18 05:20 04/25/18 05:31 Temperature Pulse Rate 79 93 H 77 Respiratory Rate 18 15 16 Blood Pressure 96/54 L 94/46 L 79/43 L Pulse Oximetry 100 100 98 04/25/18 05:45 04/25/18 06:00 04/25/18 06:07 Temperature Pulse Rate 70 67 75 Respiratory Rate 14 13 18 Blood Pressure 87/49 L 82/46 L 85/53 L Pulse Oximetry 98 100 100 04/25/18 06:08 04/25/18 06:09 04/25/18 06:10 Temperature Pulse Rate 78 77 76 Respiratory Rate 18 19 16 Blood Pressure 86/50 L 80/51 L 79/46 L Pulse Oximetry 100 100 99 04/25/18 06:15 04/25/18 06:30 04/25/18 06:45 Temperature Pulse Rate 76 78 73 Respiratory Rate 18 17 16 Blood Pressure 86/50 L 92/55 L 93/51 L Pulse Oximetry 100 100 100 04/25/18 07:00 04/25/18 07:12 04/25/18 07:16 Temperature Pulse Rate 67 78 84 Respiratory Rate 19 21 20 Blood Pressure 86/51 L 90/47 L 95/59 L Pulse Oximetry 95 100 86 L 04/25/18 07:45 04/25/18 08:00 04/25/18 08:16 Temperature Pulse Rate 73 63 72 Respiratory Rate 19 19 18 Blood Pressure 125/60 86/51 L Pulse Oximetry 98 96 04/25/18 08:30 04/25/18 08:32 04/25/18 08:45 Temperature 97.2 F L Pulse Rate 66 69 66 Respiratory Rate 20 23 18 Blood Pressure 93/52 L 97/52 L Pulse Oximetry 90 L 86 L 100 04/25/18 09:00 04/25/18 09:01 04/25/18 09:02 Temperature Pulse Rate 63 65 Respiratory Rate 19 19 Blood Pressure 98/51 L Pulse Oximetry 100 100 99 04/25/18 09:15 04/25/18 09:30 04/25/18 09:45 Temperature Pulse Rate 65 63 66 Respiratory Rate 15 16 16 Blood Pressure 106/52 L 113/57 L 113/56 L Pulse Oximetry 100 100 100 04/25/18 10:00 04/25/18 10:16 04/25/18 10:30 Temperature Pulse Rate 70 75 70 Respiratory Rate 19 14 20 Blood Pressure 104/57 L 103/50 L 108/58 L Pulse Oximetry 98 98 100 04/25/18 10:45 04/25/18 11:00 04/25/18 11:04 Temperature Pulse Rate 61 62 66 Respiratory Rate 14 17 17 Blood Pressure 104/57 L 117/62 Pulse Oximetry 99 96 97 04/25/18 11:15 04/25/18 11:30 04/25/18 11:45 Temperature Pulse Rate 63 62 Respiratory Rate 17 14 Blood Pressure 117/56 L 96/53 L Pulse Oximetry 98 99 04/25/18 11:46 04/25/18 12:00 04/25/18 12:14 Temperature Pulse Rate 67 64 66 Respiratory Rate 19 22 18 Blood Pressure 128/59 L 110/58 L Pulse Oximetry 98 100 04/25/18 12:15 04/25/18 12:30 04/25/18 12:45 Temperature Pulse Rate 64 65 54 L Respiratory Rate 17 18 12 Blood Pressure 105/55 L 103/56 L 110/56 L Pulse Oximetry 97 99 95 04/25/18 13:00 04/25/18 13:01 04/25/18 13:15 Temperature Pulse Rate 65 60 66 Respiratory Rate 17 18 18 Blood Pressure 93/51 L 91/54 L Pulse Oximetry 94 L 97 97 04/25/18 14:00 04/25/18 14:01 04/25/18 14:15 Temperature 94.8 F L Pulse Rate 60 60 51 L Respiratory Rate 17 16 14 Blood Pressure 100/49 L 91/53 L Pulse Oximetry 99 99 04/25/18 14:31 04/25/18 14:45 04/25/18 15:00 Temperature Pulse Rate 67 49 L 132 H Respiratory Rate 18 13 19 Blood Pressure 94/42 L 97/53 L 86/54 L Pulse Oximetry 99 95 75 L 04/25/18 15:16 04/25/18 15:17 04/25/18 15:30 Temperature Pulse Rate 54 L 50 L 52 L Respiratory Rate 19 20 13 Blood Pressure 105/57 L 119/64 Pulse Oximetry 81 L 100 100 04/25/18 15:46 04/25/18 16:00 Temperature 95 F L Pulse Rate 56 L 59 L Respiratory Rate 18 19 Blood Pressure 125/60 123/55 L Pulse Oximetry 100 100 Intake & Output 04/24/18 04/25/18 04/25/18 18:59 06:59 18:59 Intake Total 4370 / 4370 1800 / 1800 Output Total 1810 / 1810 Balance 2560 / 2560 1800 / 1800 Weight 99.3 kg Intake: IV 4370 / 4370 1800 / 1800 Neosynephrine Inj 40 MG In NS 500 / 500 Inj 496 ML @ 40 MCG/MIN 30 mls/ hr IV.CONT TITRATE PRN Rx#: [id number] NS Inj 1,000 ML @ 184 mls/hr IV 1000 / 1000 .CONT .[id number] [facility] Rx#:[id number] Alburx 5% Inj 500 ML @ 250 mls/ 500 / 500 1000 / 1000 hr IV.SIG Q6H [facility] Rx#:[id number] Activase Inj 100 MG In Sterile 100 / 100 Water for Inj 100 ML @ 50 mls/ hr IV.SIG ONCE ONE Rx#:[id number] Cordarone Inj 150 MG In D5W Inj 100 / 100 97 ML @ 600 mls/hr IV.SIG ONCE ONE Rx#:[id number] Calcium Chloride Inj 2 GM In NS 120 / 120 Inj 100 ML @ 120 mls/hr IV.SIG ONCE ONE Rx#:[id number] Maxipime Inj 2,000 MG In NS Inj 100 / 100 100 / 100 100 ML @ 200 mls/hr IV.SIG Q12H [facility] Rx#:[id number] KCl 40 mEq Premix Inj 40 meq In 100 / 100 100 ml @ 25 mls/hr IV.SIG Q4H [facility] Rx#:[id number] NS Inj 1,000 ML @ Wide Open IV. 1999 SIG BOLUS ONE Rx#:[id number] Vancomycin Inj 1,000 MG In NS 250 / 250 Inj 250 ML @ 250 mls/hr IV.SIG ONCE ONE Rx#:[id number] Flagyl 500 MG Inj 100 ML @ 100 200 / 200 100 / 100 mls/hr IV.SIG Q6H [facility] Rx#: [id number] Output: Urine 960 / 960 Urine Amount (Catheter) 850 / 850 Indwelling Urethral Catheter 850 / 850 Other: Date of Last Bowel Movement 04/25/18 # Bowel Movements 0 Weight On Admission 99.3 kg <Zachary Langston - Last Filed: 04/25/18 16:33> Results - Labs 04/25/18 06:12 04/25/18 14:30 Laboratory Results WBC 48.5 th/mm3 (4.0-11.0) H 04/25/18 06:12 RBC 3.31 mil/mm3 (4.00-5.30) L 04/25/18 06:12 Hgb 9.5 gm/dL (11.6-15.3) L D 04/25/18 06:12 Hct 28.6 % (35.0-46.0) L 04/25/18 06:12 MCV 86.3 fL (80.0-100.0) 04/25/18 06:12 MCH 28.6 pg (27.0-34.0) 04/25/18 06:12 MCHC 33.1 % (32.0-36.0) 04/25/18 06:12 RDW 18.4 % (11.6-17.2) H 04/25/18 06:12 Plt Count 150 th/mm3 (150-450) D 04/25/18 06:12 MPV 8.3 fL (7.0-11.0) 04/25/18 06:12 Prelim Diff (Auto) Manual diff required 04/25/18 06:12 Neut % (Auto) 95.2 % (16.0-70.0) H 04/24/18 21:28 Lymph % (Auto) 2.5 % (9.0-44.0) L 04/24/18 21:28 [place] % (Auto) 1.4 % (0.0-8.0) 04/24/18 21:28 Eos % (Auto) 0.6 % (0.0-4.0) 04/24/18 21:28 Baso % (Auto) 0.3 % (0.0-2.0) 04/24/18 21:28 Neut # (Auto) 38.4 th/mm3 (1.8-7.7) H 04/24/18 21:28 Lymph # (Auto) 1.0 th/mm3 (1.0-4.8) 04/24/18 21:28 [place] # (Auto) 0.5 th/mm3 (0.0-0.9) 04/24/18 21:28 Eos # (Auto) 0.2 th/mm3 (0.0-0.4) 04/24/18 21:28 Baso # (Auto) 0.1 th/mm3 (0.0-0.2) 04/24/18 21:28 WBC Differential Manual diff final 04/25/18 06:12 Seg Neuts % (Manual) 83 % (16-70) H 04/25/18 06:12 Band Neuts % (Manual) 15 % (0-6) H 04/25/18 06:12 Lymphocytes % (Manual) 1 % (9-44) L 04/24/18 21:28 Monocytes % (Manual) 1 % (0-8) 04/25/18 06:12 Eosinophils % (Manual) 1 % (0-4) 04/25/18 06:12 Abs Neuts (Manual) 47.5 th/mm3 (1.8-7.7) H 04/25/18 06:12 Differential Comment . 04/25/18 06:12 Toxic Granulation 1+ (None) H 04/24/18 21:28 Toxic Vacuolation Present (None) H 04/25/18 06:12 Platelet Estimate Normal (Normal) 04/25/18 06:12 Platelet Morphology Normal (Normal) 04/25/18 06:12 PT 18.1 sec (9.8-11.6) H 04/25/18 06:55 INR 1.8 Ratio 04/25/18 06:55 APTT 69.6 sec (24.3-30.1) H D 04/25/18 06:55 Puncture Site Left radial 04/24/18 21:12 Patient Temperature 98.6 04/24/18 21:12 O2 Saturation 98 % (90-100) 04/24/18 21:12 ABG pH 7.56 (7.380-7.420) H* 04/24/18 21:12 ABG pCO2 19 mmHg (38-42) L* 04/24/18 21:12 ABG pO2 251 mmHg (61-120) H 04/24/18 21:12 ABG HCO3 17 mmol/L (22-26) L 04/24/18 21:12 ABG O2 Content 18.3 Vol % (12.0-20.0) 04/24/18 21:12 ABG Base Excess -5.5 mmol/L (-2-2) L 04/24/18 21:12 ABG Methemoglobin 0.7 % (0-2) 04/24/18 21:12 [place] Test Present 04/24/18 21:12 Hemoglobin 12.9 G/DL (12.0-16.0) 04/24/18 21:12 Carboxyhemoglobin 0.8 % (0-4) 04/24/18 21:12 O2 Delivery Device Prb 04/24/18 21:12 Liter Flow 15.00 L/M 04/24/18 21:12 Critical Value Yes 04/24/18 21:12 Sodium 138 meq/L (136-145) 04/25/18 06:55 Potassium 2.1 meq/L (3.5-5.1) L* 04/25/18 08:33 Chloride 106 meq/L (98-107) 04/25/18 06:55 Carbon Dioxide 18.5 meq/L (21.0-32.0) L 04/25/18 06:55 Anion Gap 14 meq/L (5-15) 04/25/18 06:55 BUN 28 mg/dL (7-18) H 04/25/18 06:55 Creatinine 0.51 mg/dL (0.50-1.00) 04/25/18 06:55 Estimated GFR Greater than 89 mL/min (>89) 04/25/18 06:55 POC Glucose 117 mg/dl (68-110) H 04/25/18 03:24 Random Glucose 137 mg/dL (74-106) H 04/25/18 06:55 Lactic Acid 2.1 mmol/L (0.4-2.0) H 04/25/18 14:30 Calcium 7.6 mg/dL (8.5-10.1) L 04/25/18 06:55 Prot Corrected Calcium 8.3 mg/dL (8.5-10.1) L 04/24/18 21:28 Phosphorus 2.8 mg/dL (2.5-4.9) 04/25/18 06:55 Magnesium 1.5 mg/dL (1.5-2.5) 04/25/18 06:55 Total Bilirubin 1.3 mg/dL (0.2-1.0) H 04/25/18 06:55 AST 20 U/L (15-37) 04/25/18 06:55 ALT 13 U/L (10-53) 04/25/18 06:55 Alkaline Phosphatase 109 U/L (45-117) 04/25/18 06:55 Total Creatine Kinase 125 U/L (26-192) 04/24/18 21:28 CK-MB (CK-2) 1.0 ng/mL (0.5-3.6) 04/24/18 21:28 Troponin I 0.07 ng/mL (0.02-0.05) H 04/24/18 21:28 Total Protein 3.7 g/dL (6.4-8.2) L D 04/25/18 06:55 Albumin 1.7 g/dL (3.4-5.0) L 04/25/18 06:55 Lipase 27 U/L (73-393) L 04/24/18 21:28 Urine Color Sadie (Yellw/Straw) 04/24/18 23:04 Urine Clarity Cloudy (Clear) H 04/24/18 23:04 Urine pH 5.0 (5.0-8.5) 04/24/18 23:04 Ur Specific [place] 1.016 (1.002-1.035) 04/24/18 23:04 Urine Protein Negative mg/dL (Neg-Trace) 04/24/18 23:04 Urine Glucose (UA) Negative mg/dL (Negative) 04/24/18 23:04 Urine Ketones Negative mg/dL (Negative) 04/24/18 23:04 Urine Occult Blood Negative (Negative) 04/24/18 23:04 Urine Nitrate Negative (Negative) 04/24/18 23:04 Urine Bilirubin Negative (Negative) 04/24/18 23:04 Urine Urobilinogen Less than 2 mg/dL (Less than 2) 04/24/18 23:04 Ur Leukocyte Esterase Large (Negative) H 04/24/18 23:04 Urine RBC 11 /hpf (0-3) H 04/24/18 23:04 Urine WBC /hpf (0-5) 04/24/18 23:04 Urine WBC Clumps Many (None) H 04/24/18 23:04 Ur Squamous Epith Cells <1 /hpf (0-5) 04/24/18 23:04 Ur Transition Epith Cell <1 /hpf (None) 04/24/18 23:04 Ur Renal Epithelial Cell <1 /hpf (None) 04/24/18 23:04 Urine Bacteria Occasional /hpf (None) H 04/24/18 23:04 Hyaline Casts 74 /lpf (0-3) 04/24/18 23:04 Granular Casts 4 /lpf (None) 04/24/18 23:04 Urine Mucus Few /lpf (Occasional) H 04/24/18 23:04 Micro UA Comment Cath-culture ind 04/24/18 23:04 Urine Culture Comments Cath-cult indicated 04/24/18 23:04 Nasal Screen MRSA (PCR) Mrsa detected (Negative) 04/25/18 00:04 Stl C.difficile Tox PCR Negative (Negative) 04/25/18 07:15 St C. diff Tox Epid 027 Negative (Negative) 04/25/18 07:15 Blood Type A Positive 04/25/18 10:20 Blood Type Recheck Required 04/25/18 10:20 Antibody Screen Negative 04/25/18 10:20 Impressions Abdomen/Pelvis CT 04/25/18 00:00 CONCLUSION: 1. There are moderately distended air and fluid-filled loops of large bowel noted diffusely. 2. Body wall edema. 3. No focal fluid collections are identified to suggest abscess. Chest CTA 04/25/18 00:00 CONCLUSION: 1. The examination is positive for pulmonary embolus on the left. 2. Left thyroid nodule. 3. Small left pleural effusion. 4. Dilatation of the main pulmonary artery. Chest X-Ray 04/25/18 09:04 CONCLUSION: 1. Tip of the left subclavian central line low within the right atrium. No pneumothorax. 2. Right internal jugular vein central venous line unchanged. - Imaging CT scan - abdomen: image reviewed <Vida Chavez - Last Filed: 04/25/18 16:24> - Labs 04/25/18 06:12 04/25/18 14:30 Abnormal lab results 04/24/18 04/24/18 04/24/18 Range/Units 21:12 21:28 21:28 WBC 40.3 H (4.0-11.0) th/mm3 RBC (4.00-5.30) mil/mm3 Hgb (11.6-15.3) gm/dL Hct (35.0-46.0) % RDW 18.4 H (11.6-17.2) % Neut % (Auto) 95.2 H (16.0-70.0) % Lymph % (Auto) 2.5 L (9.0-44.0) % Neut # (Auto) 38.4 H (1.8-7.7) th/mm3 Seg Neuts % (Manual) 95 H (16-70) % Band Neuts % (Manual) (0-6) % Lymphocytes % (Manual) 1 L (9-44) % Abs Neuts (Manual) 38.3 H (1.8-7.7) th/mm3 Toxic Granulation 1+ H (None) Toxic Vacuolation Present H (None) PT 11.8 H D (9.8-11.6) sec APTT 32.0 H (24.3-30.1) sec ABG pH 7.56 H* (7.380-7.420) ABG pCO2 19 L* (38-42) mmHg ABG pO2 251 H (61-120) mmHg ABG HCO3 17 L (22-26) mmol/L ABG Base Excess -5.5 L (-2-2) mmol/L Sodium (136-145) meq/L Potassium (3.5-5.1) meq/L Chloride (98-107) meq/L Carbon Dioxide (21.0-32.0) meq/L BUN (7-18) mg/dL Estimated GFR (>89) mL/min POC Glucose (68-110) mg/dl Random Glucose (74-106) mg/dL Lactic Acid (0.4-2.0) mmol/L Calcium (8.5-10.1) mg/dL Prot Corrected Calcium (8.5-10.1) mg/dL Phosphorus (2.5-4.9) mg/dL Total Bilirubin (0.2-1.0) mg/dL AST (15-37) U/L Alkaline Phosphatase (45-117) U/L Troponin I (0.02-0.05) ng/mL Total Protein (6.4-8.2) g/dL Albumin (3.4-5.0) g/dL Lipase (73-393) U/L Urine Clarity (Clear) Ur Leukocyte Esterase (Negative) Urine RBC (0-3) /hpf Urine WBC Clumps (None) Urine Bacteria (None) /hpf Urine Mucus (Occasional) /lpf 04/24/18 04/24/18 04/25/18 Range/Units 21:28 23:04 02:16 WBC (4.0-11.0) th/mm3 RBC (4.00-5.30) mil/mm3 Hgb (11.6-15.3) gm/dL Hct (35.0-46.0) % RDW (11.6-17.2) % Neut % (Auto) (16.0-70.0) % Lymph % (Auto) (9.0-44.0) % Neut # (Auto) (1.8-7.7) th/mm3 Seg Neuts % (Manual) (16-70) % Band Neuts % (Manual) (0-6) % Lymphocytes % (Manual) (9-44) % Abs Neuts (Manual) (1.8-7.7) th/mm3 Toxic Granulation (None) Toxic Vacuolation (None) PT 13.2 H (9.8-11.6) sec APTT 47.1 H D (24.3-30.1) sec ABG pH (7.380-7.420) ABG pCO2 (38-42) mmHg ABG pO2 (61-120) mmHg ABG HCO3 (22-26) mmol/L ABG Base Excess (-2-2) mmol/L Sodium 129 L (136-145) meq/L Potassium (3.5-5.1) meq/L Chloride (98-107) meq/L Carbon Dioxide 16.9 L (21.0-32.0) meq/L BUN 31 H (7-18) mg/dL Estimated GFR 73 L (>89) mL/min POC Glucose (68-110) mg/dl Random Glucose (74-106) mg/dL Lactic Acid (0.4-2.0) mmol/L Calcium 7.2 L* (8.5-10.1) mg/dL Prot Corrected Calcium 8.3 L (8.5-10.1) mg/dL Phosphorus (2.5-4.9) mg/dL Total Bilirubin (0.2-1.0) mg/dL AST 57 H (15-37) U/L Alkaline Phosphatase 180 H (45-117) U/L Troponin I 0.07 H (0.02-0.05) ng/mL Total Protein 5.0 L (6.4-8.2) g/dL Albumin 1.4 L (3.4-5.0) g/dL Lipase 27 L (73-393) U/L Urine Clarity Cloudy H (Clear) Ur Leukocyte Esterase Large H (Negative) Urine RBC 11 H (0-3) /hpf Urine WBC Clumps Many H (None) Urine Bacteria Occasional H (None) /hpf Urine Mucus Few H (Occasional) /lpf 04/25/18 04/25/18 04/25/18 Range/Units 03:24 06:12 06:55 WBC 48.5 H (4.0-11.0) th/mm3 RBC 3.31 L (4.00-5.30) mil/mm3 Hgb 9.5 L D (11.6-15.3) gm/dL Hct 28.6 L (35.0-46.0) % RDW 18.4 H (11.6-17.2) % Neut % (Auto) (16.0-70.0) % Lymph % (Auto) (9.0-44.0) % Neut # (Auto) (1.8-7.7) th/mm3 Seg Neuts % (Manual) 83 H (16-70) % Band Neuts % (Manual) 15 H (0-6) % Lymphocytes % (Manual) (9-44) % Abs Neuts (Manual) 47.5 H (1.8-7.7) th/mm3 Toxic Granulation (None) Toxic Vacuolation Present H (None) PT 18.1 H (9.8-11.6) sec APTT 69.6 H D (24.3-30.1) sec ABG pH (7.380-7.420) ABG pCO2 (38-42) mmHg ABG pO2 (61-120) mmHg ABG HCO3 (22-26) mmol/L ABG Base Excess (-2-2) mmol/L Sodium (136-145) meq/L Potassium (3.5-5.1) meq/L Chloride (98-107) meq/L Carbon Dioxide (21.0-32.0) meq/L BUN (7-18) mg/dL Estimated GFR (>89) mL/min POC Glucose 117 H (68-110) mg/dl Random Glucose (74-106) mg/dL Lactic Acid (0.4-2.0) mmol/L Calcium (8.5-10.1) mg/dL Prot Corrected Calcium (8.5-10.1) mg/dL Phosphorus (2.5-4.9) mg/dL Total Bilirubin (0.2-1.0) mg/dL AST (15-37) U/L Alkaline Phosphatase (45-117) U/L Troponin I (0.02-0.05) ng/mL Total Protein (6.4-8.2) g/dL Albumin (3.4-5.0) g/dL Lipase (73-393) U/L Urine Clarity (Clear) Ur Leukocyte Esterase (Negative) Urine RBC (0-3) /hpf Urine WBC Clumps (None) Urine Bacteria (None) /hpf Urine Mucus (Occasional) /lpf 04/25/18 04/25/18 04/25/18 Range/Units 06:55 08:33 14:30 WBC (4.0-11.0) th/mm3 RBC (4.00-5.30) mil/mm3 Hgb (11.6-15.3) gm/dL Hct (35.0-46.0) % RDW (11.6-17.2) % Neut % (Auto) (16.0-70.0) % Lymph % (Auto) (9.0-44.0) % Neut # (Auto) (1.8-7.7) th/mm3 Seg Neuts % (Manual) (16-70) % Band Neuts % (Manual) (0-6) % Lymphocytes % (Manual) (9-44) % Abs Neuts (Manual) (1.8-7.7) th/mm3 Toxic Granulation (None) Toxic Vacuolation (None) PT (9.8-11.6) sec APTT (24.3-30.1) sec ABG pH (7.380-7.420) ABG pCO2 (38-42) mmHg ABG pO2 (61-120) mmHg ABG HCO3 (22-26) mmol/L ABG Base Excess (-2-2) mmol/L Sodium (136-145) meq/L Potassium 2.2 L* D 2.1 L* 2.3 L* (3.5-5.1) meq/L Chloride 108 H (98-107) meq/L Carbon Dioxide 18.5 L 17.2 L (21.0-32.0) meq/L BUN 28 H 24 H (7-18) mg/dL Estimated GFR 84 L (>89) mL/min POC Glucose (68-110) mg/dl Random Glucose 137 H 208 H (74-106) mg/dL Lactic Acid (0.4-2.0) mmol/L Calcium 7.6 L 6.9 L* (8.5-10.1) mg/dL Prot Corrected Calcium (8.5-10.1) mg/dL Phosphorus 2.2 L (2.5-4.9) mg/dL Total Bilirubin 1.3 H (0.2-1.0) mg/dL AST (15-37) U/L Alkaline Phosphatase (45-117) U/L Troponin I (0.02-0.05) ng/mL Total Protein 3.7 L D 4.0 L (6.4-8.2) g/dL Albumin 1.7 L (3.4-5.0) g/dL Lipase (73-393) U/L Urine Clarity (Clear) Ur Leukocyte Esterase (Negative) Urine RBC (0-3) /hpf Urine WBC Clumps (None) Urine Bacteria (None) /hpf Urine Mucus (Occasional) /lpf 04/25/18 Range/Units 14:30 WBC (4.0-11.0) th/mm3 RBC (4.00-5.30) mil/mm3 Hgb (11.6-15.3) gm/dL Hct (35.0-46.0) % RDW (11.6-17.2) % Neut % (Auto) (16.0-70.0) % Lymph % (Auto) (9.0-44.0) % Neut # (Auto) (1.8-7.7) th/mm3 Seg Neuts % (Manual) (16-70) % Band Neuts % (Manual) (0-6) % Lymphocytes % (Manual) (9-44) % Abs Neuts (Manual) (1.8-7.7) th/mm3 Toxic Granulation (None) Toxic Vacuolation (None) PT (9.8-11.6) sec APTT (24.3-30.1) sec ABG pH (7.380-7.420) ABG pCO2 (38-42) mmHg ABG pO2 (61-120) mmHg ABG HCO3 (22-26) mmol/L ABG Base Excess (-2-2) mmol/L Sodium (136-145) meq/L Potassium (3.5-5.1) meq/L Chloride (98-107) meq/L Carbon Dioxide (21.0-32.0) meq/L BUN (7-18) mg/dL Estimated GFR (>89) mL/min POC Glucose (68-110) mg/dl Random Glucose (74-106) mg/dL Lactic Acid 2.1 H (0.4-2.0) mmol/L Calcium (8.5-10.1) mg/dL Prot Corrected Calcium (8.5-10.1) mg/dL Phosphorus (2.5-4.9) mg/dL Total Bilirubin (0.2-1.0) mg/dL AST (15-37) U/L Alkaline Phosphatase (45-117) U/L Troponin I (0.02-0.05) ng/mL Total Protein (6.4-8.2) g/dL Albumin (3.4-5.0) g/dL Lipase (73-393) U/L Urine Clarity (Clear) Ur Leukocyte Esterase (Negative) Urine RBC (0-3) /hpf Urine WBC Clumps (None) Urine Bacteria (None) /hpf Urine Mucus (Occasional) /lpf Diabetes panel 04/24/18 04/25/18 04/25/18 Range/Units 21:28 06:55 08:33 Sodium 129 L 138 (136-145) meq/L Potassium 4.4 2.2 L* D 2.1 L* (3.5-5.1) meq/L Chloride 99 106 (98-107) meq/L Carbon Dioxide 16.9 L 18.5 L (21.0-32.0) meq/L BUN 31 H 28 H (7-18) mg/dL Creatinine 0.76 0.51 (0.50-1.00) mg/dL Calcium 7.2 L* 7.6 L (8.5-10.1) mg/dL AST 57 H 20 (15-37) U/L ALT 23 13 (10-53) U/L Alkaline Phosphatase 180 H 109 (45-117) U/L Total Protein 5.0 L 3.7 L D (6.4-8.2) g/dL Albumin 1.4 L 1.7 L (3.4-5.0) g/dL 04/25/18 Range/Units 14:30 Sodium 138 (136-145) meq/L Potassium 2.3 L* (3.5-5.1) meq/L Chloride 108 H (98-107) meq/L Carbon Dioxide 17.2 L (21.0-32.0) meq/L BUN 24 H (7-18) mg/dL Creatinine 0.67 (0.50-1.00) mg/dL Calcium 6.9 L* (8.5-10.1) mg/dL AST (15-37) U/L ALT (10-53) U/L Alkaline Phosphatase (45-117) U/L Total Protein 4.0 L (6.4-8.2) g/dL Albumin (3.4-5.0) g/dL Calcium panel 04/24/18 04/25/18 04/25/18 Range/Units 21:28 06:55 14:30 Calcium 7.2 L* 7.6 L 6.9 L* (8.5-10.1) mg/dL Phosphorus 2.8 2.2 L (2.5-4.9) mg/dL Albumin 1.4 L 1.7 L (3.4-5.0) g/dL Pituitary panel 04/24/18 04/25/18 04/25/18 Range/Units 21:28 06:55 08:33 Sodium 129 L 138 (136-145) meq/L Potassium 4.4 2.2 L* D 2.1 L* (3.5-5.1) meq/L Chloride 99 106 (98-107) meq/L Carbon Dioxide 16.9 L 18.5 L (21.0-32.0) meq/L BUN 31 H 28 H (7-18) mg/dL Creatinine 0.76 0.51 (0.50-1.00) mg/dL Calcium 7.2 L* 7.6 L (8.5-10.1) mg/dL 04/25/18 Range/Units 14:30 Sodium 138 (136-145) meq/L Potassium 2.3 L* (3.5-5.1) meq/L Chloride 108 H (98-107) meq/L Carbon Dioxide 17.2 L (21.0-32.0) meq/L BUN 24 H (7-18) mg/dL Creatinine 0.67 (0.50-1.00) mg/dL Calcium 6.9 L* (8.5-10.1) mg/dL Adrenal panel 04/24/18 04/25/18 04/25/18 Range/Units 21:28 06:55 08:33 Sodium 129 L 138 (136-145) meq/L Potassium 4.4 2.2 L* D 2.1 L* (3.5-5.1) meq/L Chloride 99 106 (98-107) meq/L Carbon Dioxide 16.9 L 18.5 L (21.0-32.0) meq/L BUN 31 H 28 H (7-18) mg/dL Creatinine 0.76 0.51 (0.50-1.00) mg/dL Calcium 7.2 L* 7.6 L (8.5-10.1) mg/dL Total Bilirubin 0.8 1.3 H (0.2-1.0) mg/dL AST 57 H 20 (15-37) U/L ALT 23 13 (10-53) U/L Alkaline Phosphatase 180 H 109 (45-117) U/L Total Protein 5.0 L 3.7 L D (6.4-8.2) g/dL Albumin 1.4 L 1.7 L (3.4-5.0) g/dL 04/25/18 Range/Units 14:30 Sodium 138 (136-145) meq/L Potassium 2.3 L* (3.5-5.1) meq/L Chloride 108 H (98-107) meq/L Carbon Dioxide 17.2 L (21.0-32.0) meq/L BUN 24 H (7-18) mg/dL Creatinine 0.67 (0.50-1.00) mg/dL Calcium 6.9 L* (8.5-10.1) mg/dL Total Bilirubin (0.2-1.0) mg/dL AST (15-37) U/L ALT (10-53) U/L Alkaline Phosphatase (45-117) U/L Total Protein 4.0 L (6.4-8.2) g/dL Albumin (3.4-5.0) g/dL All other labs normal. <Zachary Langston - Last Filed: 04/25/18 16:33> Assessment and Plan - Assessment (1) Sepsis Code(s): A41.9 - Sepsis, unspecified organism Status: Acute Qualifiers: Sepsis type: sepsis due to unspecified organism Qualified Code(s): A41.9 - Sepsis, unspecified organism Plan: 83 year old female with c-diff colitis; UTI; leukocytosis; atrial fibrillation with RVR; PE on heparin drip -s/p TPA for PE -Continue treatment for cdiff colitis with Flagyl/Vancomycin -Continue treatment for UTI -Replace electrolytes as needed -Diet as tolerated -Patient is a poor surgical candidate -Had long discussion with Dr. Modi and daughter Marylin at the bedside---she would like the patient to be a DNR but to continue full active treatment---she would like to meet with Palliative Care to discuss further goals of treatment -Thank you for this consult; General Surgery will sign off but please call with questions. - Plan Discussed Condition With: Dr. Ivis Coulter daughter Ms. Todd <Vida Chavez - Last Filed: 04/25/18 16:24> - Assessment (1) Sepsis Code(s): A41.9 - Sepsis, unspecified organism Status: Acute Qualifiers: Sepsis type: sepsis due to unspecified organism Qualified Code(s): A41.9 - Sepsis, unspecified organism - Attending Attestation The patient was seen by me in room 506, with RN and daughter, Marylin, at the bedside. She is awake and alert, very hard of hearing. 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 She does have a UTI and is on blood thinners for a PE. The daughter indicates she is non ambulatory and her quality of life has deteriorated over the last year. She is adamantly against any surgical intervention and is considering palliative care and potentially Hospice. There appears to be NO role for surgery in the care of this patient after speaking to the patient's daughter. We will therefore, sign off. The exam, history, and the medical decision-making described in the above note were completed with the assistance of the mid-level provider. I reviewed and agree with the findings presented. I attest that I had a bjow-wc-lead encounter with the patient on the same day, and personally performed and documented my assessment and findings in the medical record. <Zachary Langston - Last Filed: 04/25/18 16:33>
[2018-04-25 15:48] LABS: Calcium 6.9 mg/dL (8.5-10.1); Carbon Dioxide 17.2 meq/L (21.0-32.0); Magnesium 1.5 mg/dL (1.5-2.5); Phosphorus 2.2 mg/dL (2.5-4.9)
[2018-04-25 16:21] LABS: Potassium 2.3 meq/L (3.5-5.1)
--- NOTE | 2018-04-25 22:26 | ECG ---
Date Performed: 04/24/2018 Time Performed: 20:50:38 PTAGE: 83 years EKG: ATRIAL FIBRILLATION WITH RAPID VENTRICULAR RESPONSE LEFT BUNDLE BRANCH BLOCK ABNORMAL ECG PREVIOUS TRACING : 04/13/2018 04.16 Since the previous tracing, no significant change noted DOCTOR: Zachariah Randle Interpretating Date/Time 04/25/2018 22:25:18
[2018-04-26 04:26] LABS: Mean Corpuscular HGB Conc 32.9 % (32.0-36.0); Mean Corpuscular Hemoglobin 28.1 pg (27.0-34.0); Mean Corpuscular Volume 85.6 fL (80.0-100.0); Mean Platelet Volume 8.3 fL (7.0-11.0); Platelet Count 115 th/mm3 (150-450); Red Blood Count 1.76 mil/mm3 (4.00-5.30); Red Cell Distribution Width 18.9 % (11.6-17.2); White Blood Count 22.7 th/mm3 (4.0-11.0)
[2018-04-26 04:31] LABS: Hematocrit 15.1 % (35.0-46.0); Hemoglobin 4.9 gm/dL (11.6-15.3)
[2018-04-26 05:12] LABS: Baso % (Auto) 0.1 % (0.0-2.0); Eos % (Auto) 0.1 % (0.0-4.0); Lymph # (Auto) 1.7 th/mm3 (1.0-4.8); Lymph % (Auto) 7.8 % (9.0-44.0); Mean Corpuscular HGB Conc 32.2 % (32.0-36.0); Mean Corpuscular Hemoglobin 27.9 pg (27.0-34.0); Mean Corpuscular Volume 86.5 fL (80.0-100.0); Mean Platelet Volume 8.5 fL (7.0-11.0); Mono # (Auto) 0.8 th/mm3 (0.0-0.9); Mono % (Auto) 3.5 % (0.0-8.0); Neut # (Auto) 19.8 th/mm3 (1.8-7.7); Neut % (Auto) 88.5 % (16.0-70.0); Platelet Count 121 th/mm3 (150-450); Red Blood Count 1.77 mil/mm3 (4.00-5.30); Red Cell Distribution Width 19.1 % (11.6-17.2); White Blood Count 22.3 th/mm3 (4.0-11.0)
[2018-04-26 05:15] LABS: Hematocrit 15.3 % (35.0-46.0); Hemoglobin 4.9 gm/dL (11.6-15.3)
[2018-04-26 05:51] LABS: Ovalocytes 1+
[2018-04-26 05:53] LABS: Platelet Morphology Normal (Normal)
[2018-04-26 05:56] LABS: Dohle Bodies Present
[2018-04-26] MEDS: Chlorhexidine Gluconate 2% 1 Pack (2 Cloths) TOPICAL SCH (06:03)
--- NOTE | 2018-04-26 06:37 | XR ---
EXAM DATE: 04/26/2018 6:33 AM EDT AGE/SEX: 83 years / Female INDICATIONS: Abdominal distension CLINICAL DATA: This is the patient's subsequent encounter. Patient reports that signs and symptoms h ave been present for 2 weeks and indicates a pain score of Nonresponsive. MEDICAL/SURGICAL HISTORY: . Cardiovascular disease. Hypertension. . Appendectomy. Hysterectomy . Gastric bypass. [place] [facility] [place]EL[place] W [place] 04/25/2018. . FINDINGS: There is persistent mild diffuse dilatation of large bowel. A presumed temperature probe overlies th e rectum. Degenerative changes of the spine are noted. CONCLUSION: Persistent colonic distention. Electronically signed by: Jose Arriaga MD 04/26/2018 6:36 AM EDT
[2018-04-26] MEDS: Mupirocin 2% Nasal Oint Topical Syringe EACH NARE SCH ×2 (08:01→21:04)
[2018-04-26] MEDS: Famotidine PF Inj 20 MG/2 ML Vial IV.PUSH SCH ×2 (08:01→21:04)
[2018-04-26] MEDS: Senna/Docusate Sodium 8.6/50 MG Tablet PO SCH ×2 (08:02→21:04)
[2018-04-26 08:31] LABS: Alanine Aminotransferase 13 U/L (10-53); Albumin 2.5 g/dL (3.4-5.0); Alkaline Phosphatase 74 U/L (45-117); Anion Gap 11 meq/L (5-15); Aspartate Aminotransferase 18 U/L (15-37); Blood Urea Nitrogen 22 mg/dL (7-18); Calcium 7.1 mg/dL (8.5-10.1); Carbon Dioxide 18.7 meq/L (21.0-32.0); Chloride 108 meq/L (98-107); Glomerular Filtration Rate Greater Than 89 mL/min (>89); Glucose,Random 135 mg/dL (74-106); Sodium 138 meq/L (136-145)
[2018-04-26 08:41] LABS: Potassium 2.2 meq/L (3.5-5.1)
--- NOTE | 2018-04-26 10:22 | P.PNGI ---
Subjective Interval history: Pt resting in bed, nurse Shaila at bedside helping pt eat breakfast. Pt able to take PO but does not want to eat the eggs because she states they are terrible. Per RN pt has had no emesis. No obvious bleeding in stool, continues to have loose yellow stools. Physical Exam Vital signs: Vital Signs 04/25/18 10:30 04/25/18 10:45 04/25/18 11:00 Temperature Pulse Rate 70 61 62 Respiratory Rate 20 14 17 Blood Pressure 108/58 L 104/57 L Pulse Oximetry 100 99 96 04/25/18 11:04 04/25/18 11:15 04/25/18 11:30 Temperature Pulse Rate 66 63 62 Respiratory Rate 17 17 14 Blood Pressure 117/62 117/56 L 96/53 L Pulse Oximetry 97 98 04/25/18 11:45 04/25/18 11:46 04/25/18 12:00 Temperature Pulse Rate 67 64 Respiratory Rate 19 22 Blood Pressure 128/59 L 110/58 L Pulse Oximetry 99 98 100 04/25/18 12:14 04/25/18 12:15 04/25/18 12:30 Temperature Pulse Rate 66 64 65 Respiratory Rate 18 17 18 Blood Pressure 105/55 L 103/56 L Pulse Oximetry 97 99 04/25/18 12:45 04/25/18 13:00 04/25/18 13:01 Temperature Pulse Rate 54 L 65 60 Respiratory Rate 12 17 18 Blood Pressure 110/56 L 93/51 L Pulse Oximetry 95 94 L 97 04/25/18 13:15 04/25/18 14:00 04/25/18 14:01 Temperature 94.8 F L Pulse Rate 66 60 60 Respiratory Rate 18 17 16 Blood Pressure 91/54 L 100/49 L Pulse Oximetry 97 99 04/25/18 14:15 04/25/18 14:31 04/25/18 14:45 Temperature Pulse Rate 51 L 67 49 L Respiratory Rate 14 18 13 Blood Pressure 91/53 L 94/42 L 97/53 L Pulse Oximetry 99 99 95 04/25/18 15:00 04/25/18 15:16 04/25/18 15:17 Temperature Pulse Rate 132 H 54 L 50 L Respiratory Rate 19 19 20 Blood Pressure 86/54 L 105/57 L Pulse Oximetry 75 L 81 L 100 04/25/18 15:30 04/25/18 15:46 04/25/18 16:00 Temperature 95 F L Pulse Rate 52 L 56 L 59 L Respiratory Rate 13 18 19 Blood Pressure 119/64 125/60 123/55 L Pulse Oximetry 100 100 100 04/25/18 17:00 04/25/18 17:15 04/25/18 17:28 Temperature Pulse Rate 60 53 L 51 L Respiratory Rate 18 16 Blood Pressure 110/53 L 97/54 L 97/54 L Pulse Oximetry 100 100 04/25/18 17:30 04/25/18 17:45 04/25/18 18:00 Temperature 95.9 F L Pulse Rate 52 L 49 L 55 L Respiratory Rate 14 13 20 Blood Pressure 99/56 L 96/55 L 102/57 L Pulse Oximetry 99 100 100 04/25/18 19:00 04/25/18 20:00 04/25/18 20:35 Temperature 96.6 F L 96.6 F L Pulse Rate 75 59 L 63 Respiratory Rate 24 Blood Pressure 99/52 L 99/52 L Pulse Oximetry 100 100 04/25/18 21:00 04/25/18 22:00 04/25/18 23:00 Temperature 98.1 F Pulse Rate 56 L 58 L Respiratory Rate Blood Pressure 107/64 100/55 L Pulse Oximetry 04/26/18 00:00 04/26/18 02:00 04/26/18 03:00 Temperature 98.1 F 97.5 F L Pulse Rate 58 L 57 L Respiratory Rate Blood Pressure 100/55 L 100/52 L Pulse Oximetry 04/26/18 04:00 04/26/18 05:00 04/26/18 06:00 Temperature 97.3 F L 97.3 F L 97.3 F L Pulse Rate 71 Respiratory Rate Blood Pressure Pulse Oximetry 04/26/18 06:26 04/26/18 07:00 04/26/18 08:15 Temperature 97.5 F L 97.2 F L Pulse Rate 71 62 Respiratory Rate 20 Blood Pressure Pulse Oximetry 95 04/26/18 08:23 04/26/18 08:42 Temperature 97.0 F L 96.8 F L Pulse Rate 96 H 96 H Respiratory Rate 18 18 Blood Pressure 127/60 114/67 Pulse Oximetry 100 94 L Intake & Output 08/08/18 08/09/18 08/09/18 18:59 06:59 18:59 Intake Total 2880 / 2880 1590 / 1590 400 / 400 Output Total 1000 / 1000 1959 / 1960 500 / 500 Balance 1880 / 1880 -370 / -370 -100 / -100 Weight 99.3 kg Intake: IV 2400 / 2400 1110 / 1110 Neosynephrine Inj 40 MG In NS 1000 / 1000 Inj 496 ML @ 40 MCG/MIN 30 mls/ hr IV.CONT TITRATE PRN Rx#: [id number] KCl Inj 20 MEQ In LR 1000 mL 1010 / 1010 Inj 1,000 ML @ 125 mls/hr IV. CONT .Q8H5M AMELIE Rx#:[id number] Alburx 5% Inj 500 ML @ 250 mls/ 1000 / 1000 hr IV.SIG Q6H AMELIE Rx#:[id number] Maxipime Inj 2,000 MG In NS Inj 100 / 100 100 ML @ 200 mls/hr IV.SIG Q12H AMELIE Rx#:[id number] KCl 40 mEq Premix Inj 40 meq In 100 / 100 100 ml @ 25 mls/hr IV.SIG Q4H AMELIE Rx#:[id number] Flagyl 500 MG Inj 100 ML @ 100 200 / 200 100 / 100 mls/hr IV.SIG Q6H AMELIE Rx#: [id number] Oral 480 / 480 480 / 480 Intake (Blood Product) Amt 0 / 0 400 / 400 Rbc As-3 Leukoreduced Unit 0 / 0 400 / 400 [id number] Rbc As-3 Leukoreduced Unit 0 / 0 [id number] Output: Urine 960 / 960 Urine Amount (Catheter) 1000 / 1000 1000 / 1000 500 / 500 Indwelling Urethral Catheter 1000 / 1000 1000 / 1000 500 / 500 Other: Date of Last Bowel Movement 04/25/18 04/25/18 04/26/18 # Bowel Movements 3 3 2 - Constitutional no acute distress - Routine HEENT Exam Head: Present: normocephalic, atraumatic - Routine Respiratory Exam Absent: accessory muscle use - Routine Abdominal Exam Present: soft, normoactive bowel sounds, distended - Routine Skin Exam Present: dry, warm - Routine Neurological Exam Present: alert. Absent: oriented X3 - Urinary Catheter Management Indwelling Urethral Catheter Cath placed during this visit: no Results - Labs CBC & Chem 7: 04/26/18 12:16 04/26/18 07:35 Laboratory Results - last 24 hr 04/24/18 04/25/18 04/25/18 23:04 07:15 10:20 WBC RBC Hgb Hct MCV MCH MCHC RDW Plt Count MPV Prelim Diff (Auto) Neut % (Auto) Lymph % (Auto) Gates % (Auto) Eos % (Auto) Baso % (Auto) Neut # (Auto) Lymph # (Auto) Gates # (Auto) Eos # (Auto) Baso # (Auto) WBC Differential Diff Scan Differential Comment Dohle Bodies Platelet Estimate Platelet Morphology Ovalocytes Keratocytes APTT Sodium Potassium Chloride Carbon Dioxide Anion Gap BUN Creatinine Estimated GFR Random Glucose Lactic Acid Calcium Prot Corrected Calcium Phosphorus Magnesium Total Bilirubin AST ALT Alkaline Phosphatase Total Protein Albumin TSH Urine Color Sadie Urine Clarity Cloudy H Urine pH 5.0 Ur Specific [place] 1.016 Urine Protein Negative Urine Glucose (UA) Negative Urine Ketones Negative Urine Occult Blood Negative Urine Nitrate Negative Urine Bilirubin Negative Urine Urobilinogen Less than 2 Ur Leukocyte Esterase Large H Urine RBC 11 H Urine WBC Urine WBC Clumps Many H Ur Squamous Epith Cells <1 Ur Transition Epith Cell <1 Ur Renal Epithelial Cell <1 Urine Bacteria Occasional H Hyaline Casts 74 Granular Casts 4 Urine Mucus Few H Micro UA Comment Cath-culture ind Urine Culture Comments Cath-cult indicated Stl C.difficile Tox PCR Negative St C. diff Tox Epid 027 Negative Blood Type A Positive Blood Type Recheck Required Antibody Screen Negative MTS Gel Crossmatch 04/25/18 04/25/18 04/25/18 14:30 14:30 18:35 WBC RBC Hgb Hct MCV MCH MCHC RDW Plt Count MPV Prelim Diff (Auto) Neut % (Auto) Lymph % (Auto) Gates % (Auto) Eos % (Auto) Baso % (Auto) Neut # (Auto) Lymph # (Auto) Gates # (Auto) Eos # (Auto) Baso # (Auto) WBC Differential Diff Scan Differential Comment Dohle Bodies Platelet Estimate Platelet Morphology Ovalocytes Keratocytes APTT Greater than 277.5 H* Sodium 138 Potassium 2.3 L* Chloride 108 H Carbon Dioxide 17.2 L Anion Gap 13 BUN 24 H Creatinine 0.67 Estimated GFR 84 L Random Glucose 208 H Lactic Acid 2.1 H Calcium 6.9 L* Prot Corrected Calcium 8.6 Phosphorus 2.2 L Magnesium 1.5 Total Bilirubin AST ALT Alkaline Phosphatase Total Protein 4.0 L Albumin TSH Urine Color Urine Clarity Urine pH Ur Specific [place] Urine Protein Urine Glucose (UA) Urine Ketones Urine Occult Blood Urine Nitrate Urine Bilirubin Urine Urobilinogen Ur Leukocyte Esterase Urine RBC Urine WBC Urine WBC Clumps Ur Squamous Epith Cells Ur Transition Epith Cell Ur Renal Epithelial Cell Urine Bacteria Hyaline Casts Granular Casts Urine Mucus Micro UA Comment Urine Culture Comments Stl C.difficile Tox PCR St C. diff Tox Epid 027 Blood Type Blood Type Recheck Antibody Screen MTS Gel Crossmatch 04/25/18 04/26/18 04/26/18 22:15 00:15 04:15 WBC 22.7 H D RBC 1.76 L Hgb 4.9 L* D Hct 15.1 L* MCV 85.6 MCH 28.1 MCHC 32.9 RDW 18.9 H Plt Count 115 L MPV 8.3 Prelim Diff (Auto) Neut % (Auto) Lymph % (Auto) Gates % (Auto) Eos % (Auto) Baso % (Auto) Neut # (Auto) Lymph # (Auto) Gates # (Auto) Eos # (Auto) Baso # (Auto) WBC Differential Diff Scan Differential Comment Dohle Bodies Platelet Estimate Platelet Morphology Ovalocytes Keratocytes APTT 191.4 H* D 88.4 H D Sodium Potassium Chloride Carbon Dioxide Anion Gap BUN Creatinine Estimated GFR Random Glucose Lactic Acid Calcium Prot Corrected Calcium Phosphorus Magnesium Total Bilirubin AST ALT Alkaline Phosphatase Total Protein Albumin TSH Urine Color Urine Clarity Urine pH Ur Specific [place] Urine Protein Urine Glucose (UA) Urine Ketones Urine Occult Blood Urine Nitrate Urine Bilirubin Urine Urobilinogen Ur Leukocyte Esterase Urine RBC Urine WBC Urine WBC Clumps Ur Squamous Epith Cells Ur Transition Epith Cell Ur Renal Epithelial Cell Urine Bacteria Hyaline Casts Granular Casts Urine Mucus Micro UA Comment Urine Culture Comments Stl C.difficile Tox PCR St C. diff Tox Epid 027 Blood Type Blood Type Recheck Antibody Screen MTS Gel Crossmatch 04/26/18 04/26/18 04/26/18 04:15 04:20 05:00 WBC 22.3 H RBC 1.77 L Hgb 4.9 L* Hct 15.3 L* MCV 86.5 MCH 27.9 MCHC 32.2 RDW 19.1 H Plt Count 121 L MPV 8.5 Prelim Diff (Auto) Slide review pending Neut % (Auto) 88.5 H Lymph % (Auto) 7.8 L Gates % (Auto) 3.5 Eos % (Auto) 0.1 Baso % (Auto) 0.1 Neut # (Auto) 19.8 H Lymph # (Auto) 1.7 Gates # (Auto) 0.8 Eos # (Auto) 0.0 Baso # (Auto) 0.0 WBC Differential . Diff Scan Auto diff confirmed Differential Comment . Dohle Bodies Present H Platelet Estimate Low L Platelet Morphology Normal Ovalocytes 1+ H Keratocytes Occ H APTT Sodium Potassium Chloride Carbon Dioxide Anion Gap BUN Creatinine Estimated GFR Random Glucose Lactic Acid 1.1 Calcium Prot Corrected Calcium Phosphorus Magnesium Total Bilirubin AST ALT Alkaline Phosphatase Total Protein Albumin TSH 1.220 Urine Color Urine Clarity Urine pH Ur Specific [place] Urine Protein Urine Glucose (UA) Urine Ketones Urine Occult Blood Urine Nitrate Urine Bilirubin Urine Urobilinogen Ur Leukocyte Esterase Urine RBC Urine WBC Urine WBC Clumps Ur Squamous Epith Cells Ur Transition Epith Cell Ur Renal Epithelial Cell Urine Bacteria Hyaline Casts Granular Casts Urine Mucus Micro UA Comment Urine Culture Comments Stl C.difficile Tox PCR St C. diff Tox Epid 027 Blood Type Blood Type Recheck Antibody Screen MTS Gel Crossmatch 04/26/18 04/26/18 04/26/18 05:22 07:35 07:35 WBC RBC Hgb Hct MCV MCH MCHC RDW Plt Count MPV Prelim Diff (Auto) Neut % (Auto) Lymph % (Auto) Gates % (Auto) Eos % (Auto) Baso % (Auto) Neut # (Auto) Lymph # (Auto) Gates # (Auto) Eos # (Auto) Baso # (Auto) WBC Differential Diff Scan Differential Comment Dohle Bodies Platelet Estimate Platelet Morphology Ovalocytes Keratocytes APTT Greater than 277.5 H* Sodium 138 Potassium 2.2 L* Chloride 108 H Carbon Dioxide 18.7 L Anion Gap 11 BUN 22 H Creatinine 0.46 L Estimated GFR Greater than 89 Random Glucose 135 H Lactic Acid Calcium 7.1 L* Prot Corrected Calcium 8.9 Phosphorus Magnesium Total Bilirubin 1.0 AST 18 ALT 13 Alkaline Phosphatase 74 Total Protein 4.0 L Albumin 2.5 L D TSH Urine Color Urine Clarity Urine pH Ur Specific [place] Urine Protein Urine Glucose (UA) Urine Ketones Urine Occult Blood Urine Nitrate Urine Bilirubin Urine Urobilinogen Ur Leukocyte Esterase Urine RBC Urine WBC Urine WBC Clumps Ur Squamous Epith Cells Ur Transition Epith Cell Ur Renal Epithelial Cell Urine Bacteria Hyaline Casts Granular Casts Urine Mucus Micro UA Comment Urine Culture Comments Stl C.difficile Tox PCR St C. diff Tox Epid 027 Blood Type Blood Type Recheck Antibody Screen MTS Gel Crossmatch See Detail 04/26/18 08:50 WBC RBC Hgb Hct MCV MCH MCHC RDW Plt Count MPV Prelim Diff (Auto) Neut % (Auto) Lymph % (Auto) Gates % (Auto) Eos % (Auto) Baso % (Auto) Neut # (Auto) Lymph # (Auto) Gates # (Auto) Eos # (Auto) Baso # (Auto) WBC Differential Diff Scan Differential Comment Dohle Bodies Platelet Estimate Platelet Morphology Ovalocytes Keratocytes APTT Sodium Potassium Chloride Carbon Dioxide Anion Gap BUN Creatinine Estimated GFR Random Glucose Lactic Acid Calcium Prot Corrected Calcium Phosphorus Magnesium Total Bilirubin AST ALT Alkaline Phosphatase Total Protein Albumin TSH Urine Color Urine Clarity Urine pH Ur Specific [place] Urine Protein Urine Glucose (UA) Urine Ketones Urine Occult Blood Urine Nitrate Urine Bilirubin Urine Urobilinogen Ur Leukocyte Esterase Urine RBC Urine WBC Urine WBC Clumps Ur Squamous Epith Cells Ur Transition Epith Cell Ur Renal Epithelial Cell Urine Bacteria Hyaline Casts Granular Casts Urine Mucus Micro UA Comment Urine Culture Comments Stl C.difficile Tox PCR St C. diff Tox Epid 027 Blood Type Blood Type Recheck Antibody Screen MTS Gel Crossmatch See Detail Microbiology 04/24/18 23:04 Catheterized Urine Urine Culture - Preliminary gram negative rods 04/24/18 20:35 Blood - Peripheral Aerobic Blood Culture - Preliminary gram positive cocci 04/24/18 20:35 Blood - Peripheral Anaerobic Blood Culture - Preliminary gram positive cocci 04/24/18 21:30 Blood - Peripheral Aerobic Blood Culture - Preliminary gram positive cocci 04/24/18 21:30 Blood - Peripheral Anaerobic Blood Culture - Preliminary gram positive cocci 04/25/18 07:15 Stool Stool Occult Blood ([facility]) - Final Hemoccult negative - Imaging Impressions Abdomen X-Ray 04/26/18 07:00 CONCLUSION: Persistent colonic distention. Assessment and Plan - Plan Assessment: - Distended colon in setting of septic presentation with recent C. Diff Electrolyte imbalance, septic appearance with leukocytosis, and hypoalbuminemia Pt with recent admission, our service was consulted for imaging showing fecal impaction- pt had presented with nausea, vomiting, diarrhea. After some enemas and laxatives pts symptoms resolved. Stool was sent which came back C. Diff positive, pt was discharged to intermediate on 28 days of oral Vancomycin and Cholestyramine- pt was just discharged yesterday Sent back to hospital for altered mentation, low O2 sats, low temperature, and hypotension Our service has been consulted to evaluate for C. Diff colitis. According to RN pt has had 3 loose, yellow colored BMs since her shift that began at 7am. C. Diff testing negative. CT abdomen and pelvis W IV contrast --> There are moderately distended air and fluid-filled loops of large bowel noted diffusely. Body wall edema. No focal fluid collections are identified to suggest abscess - Pulmonary embolism S/P TPA yesterday, currently on Heparin gtt - A-fib with RVR on admission- now on Amiodarone gtt (04/26) Pt sitting up in bed, RN at bedside helping her eat breakfast. Significant drop in hgb noted with no obvious source of bleeding. Per RN no emesis, pt has been having loose yellow colored stools. She does reports a wound to patients right side but states it is oozing, also bruising noted to bilateral femoral area from previous central line attempts Palliative care meeting with family today to determine goals of care, pt is currently DNR. Plan: Not a surgical candidate Remains on Heparin gtt ID following Cefepime and Flagyl Oral Vanco At this time palliative care consult appropriate, pt has been made DNR Not much to add from a GI perspective, our service will sign off, please reconsult as needed Pt has been seen and examined by myself and Dr. Rocha and this note is written on her behalf
--- NOTE | 2018-04-26 11:06 | P.CONPAL ---
Consult Service: Palliative Care Requesting Physician: Vida Chavez Reason for Consult: a. To assist with evaluation and management of symptoms including: Dyspnea, pain, encephalopathy b. To assist medical decision maker(s) with: better understanding of current medical conditions; weighing benefits/burdens of medical treatment options; making medical treatment decisions. Primary Care Provider: UNKNOWN History of Present Illness History of Present Illness: This is the third acute/critical care hospitalization for this 83-year-old demented fdc patient, with a past history of dementia, sepsis, C. difficile enterocolitis, A. fib, CAD, and COPD, in less than 3 months. The patient was admitted on 02/03/18 with sepsis and acute kidney injury, and was discharged to the intermediate facility on 02/09. She was readmitted on because of nausea vomiting and diarrhea, and was found to have C. difficile and sepsis. She was returned to the nursing facility (on Flagyl and oral vancomycin for C. difficile) on 04/24/18 but was sent back to the emergency department later that same day because of altered mental status and hypotension. In the emergency department, findings included: * Lethargic, confused * Temp 100, blood pressure 70/59, pulse 100 * White count 40.3, hemoglobin 12.7 * Sodium 129, creatinine 0.76, albumin 1.4 * Chest x-ray without obvious acute findings * CT abdomen/pelvis revealed loops and fluid in the large bowel, body wall edema * CTA of the chest was consistent with an acute PE Cultures were obtained, antibiotics and fluid resuscitation were initiated, anticoagulation was started, and the patient was admitted to the intensive medical care unit. She required pressors for her hypotension and shock. By the following day, blood cultures were positive for gram-positive cocci, and the urine was positive for gram-negative rods. The initial test for C. difficile was negative. Gastroenterology saw the patient and were concerned about possible toxic megacolon. Surgery saw the patient and felt she was a poor surgical candidate, and after discussion with the patient's daughter they have consulted Palliative Care. The daughter had requested DNR status at that time. This morning, the hemoglobin had dropped to 4.9, and transfusion is underway. White count is down to 22.3, but the patient is still on Rosalio-Synephrine. Palliative Care was consulted to assist with symptom management, and to enter into discussion with the patient's family regarding the illnesses, the recent trajectory of decline, the prognosis, and the benefits and burdens of the various treatment choices. Function/Cognitive Trajectory: The patient has been declining more rapidly over the past few months, particularly since these recent hospitalizations. Her dementia had been mild a few months ago but now seems fairly profound. She has been nonambulatory the past couple months. Review of Systems other (History per daughter, staff, and records) Constitutional: Reports fatigue, Reports weakness Eyes: Denies irritation Ears, Nose, Mouth, and Throat: Denies bleeding gums, Denies nosebleed Cardiovascular: Denies shortness of breath Respiratory: Reports cough Gastrointestinal: Reports loose stools (Remains on treatment for C. difficile), Denies black, tarry stools, Denies vomiting blood Genitourinary: Denies blood in urine Musculoskeletal: Denies joint swelling Skin/Breast: Reports unusual bruising (Neck and upper torso) Neurologic: Denies convulsions, Denies seizure-like activity Psychiatric: Reports confusion (Chronic) Hematologic/Lymphatic: Reports easy bruising Allergic/Immunologic: Denies hives PMFSH - History History Provided By: Medical Record - Medical History Medical History: Medical History (Last Updated 04/26/18 @ 10:56 by Laurie Salinas MD) C. difficile colitis COPD (chronic obstructive pulmonary disease) Coronary artery disease Dementia GERD (gastroesophageal reflux disease) UTI (urinary tract infection) Atrial fibrillation Encephalopathy due to infection Hyperlipemia Hypertension Sepsis - Surgical History Surgical History: Surgical History (Last Updated 04/26/18 @ 10:57 by Laurie Salinas MD) H/O hysterectomy for benign disease History of appendectomy History of gastric stapling H/O abdominal surgery - Family History Family History: Family History (Last Updated 04/26/18 @ 10:58 by Laurie Salinas MD) Father Family history of acute myocardial infarction - Tobacco History Second Hand Smoke Exposure: No Smoking Status: Unknown if ever smoked - Alcohol History How Often Do You Have a Drink Containing Alcohol: Unable to Obtain - Substance Use History Substance History: Unable to Obtain - Travel History Recent Travel in the [place] Within the Last 8 Weeks: No Recent Travel Out of the Country Within the Last 8 Weeks: No - Immunization History Tetanus Immunization: Unable to Assess Medications and Allergies Active Medications: Active Medications Acetaminophen (Tylenol) 650 mg PO Q6H PRN PRN Reason: PAIN 1-10 AND/OR FEVER >101F Al Hydroxide/Mg Hydroxide (Milk Of Magnnikita Liq) 30 ml PO Q12H PRN PRN Reason: Mild Constipation Albuterol (Albuterol Neb (Prn)) 2.5 mg NEB Q2HR NEB PRN PRN Reason: dyspnea Albuterol (Duoneb Neb (Andres)) 1 ampul NEB Q4HR NEB [facility] Last Admin: 04/26/18 08:16 Dose: 1 ampul Bisacodyl (Dulcolax Supp) 10 mg RECTAL DAILY PRN PRN Reason: SEVERE CONSITIPATION Chlorhexidine Gluconate (Chlorhexidine 2% Cloth) 3 pack TOPICAL DAILY@0400 [facility] Stop: 04/30/18 03:59 Last Admin: 04/26/18 06:03 Dose: 3 pack Chlorhexidine Gluconate (Chlorhexidine 2% Cloth) 3 pack TOPICAL DAILY@0400 PRN PRN Reason: Extra cloth needed Stop: 04/30/18 03:59 Famotidine (Pepcid Pf Inj) 20 mg IV.PUSH Q12HR [facility] Last Admin: 04/26/18 08:01 Dose: 20 mg Norepinephrine Bitartrate (Levophed-Dextrose 4 Mg/250 Ml Drip) 4 mg in 250 mls @ 7.5 mls/hr IV.SIG TITRATE PRN; Protocol PRN Reason: Per Protocol Last Titration: 04/24/18 23:16 Dose: 4 mcg/min, 15 mls/hr Metronidazole/Sodium Chloride (Flagyl 500 Mg Inj) 100 mls @ 100 mls/hr IV.SIG Q6H [facility] Last Infusion: 04/26/18 07:36 Dose: 100 mls/hr Phenylephrine HCl 40 mg/ (Sodium Chloride) 500 mls @ 30 mls/hr IV.CONT TITRATE PRN; Protocol PRN Reason: See Protocol Last Admin: 04/25/18 23:36 Dose: 80 mcg/min, 60 mls/hr Heparin Sodium/Dextrose (Heparin/D5w 25,000 U/250 Ml) 25,000 unit in 250 mls @ 0 mls/hr IV.CONT TITRATE PRN; Protocol PRN Reason: Per Protocol Last Admin: 04/25/18 05:00 Dose: 1,800 units/hr, 18 mls/hr Amiodarone HCl 450 mg/ (Dextrose) 250 mls @ 33.33 mls/hr IV.CONT TITRATE PRN; Protocol PRN Reason: Per Protocol Last Titration: 04/25/18 14:56 Dose: 0 mg/min, 0 mls/hr Potassium Chloride 20 meq/ (Lactated Ringer's) 1,010 mls @ 125 mls/hr IV.CONT .Q8H5M [facility] Last Admin: 04/26/18 00:21 Dose: 125 mls/hr Cefepime HCl 2,000 mg/ Sodium (Chloride) 100 mls @ 200 mls/hr IV.SIG Q12H [facility] Last Infusion: 04/26/18 07:35 Dose: 200 mls/hr Potassium Chloride (Kcl 40 Meq Premix Inj) 40 meq in 100 mls @ 25 mls/hr IV.SIG Q4H [facility] Stop: 04/26/18 16:59 Lactulose (Lactulose Liq) 30 ml PO DAILY PRN PRN Reason: SEVERE CONSITIPATION Metoclopramide HCl (Reglan Inj) 5 mg IV.PUSH Q6HR [facility]; Protocol Last Admin: 04/26/18 06:05 Dose: 5 mg Morphine Sulfate (Morphine Inj) 2 mg IV.PUSH Q2H PRN PRN Reason: PAIN SCALE 6 TO 10 Mupirocin (Bactroban 2% Nasal Oint) 1 applicatio EACH NARE BID [facility] Last Admin: 04/26/18 08:01 Dose: 1 applicatio Ondansetron HCl (Zofran Inj) 4 mg IV.PUSH Q6H PRN PRN Reason: NAUSEA OR VOMITING Padimate O (Chapstick) 1 applicatio TOPICAL UNSCH PRN PRN Reason: dry lips Senna/Docusate Sodium (Jeanette-Colace) 1 tab PO BID [facility] Last Admin: 04/26/18 08:02 Dose: Not Given Sennosides (Senokot) 17.2 mg PO Q12H PRN PRN Reason: Moderate Constipation Sodium Chloride (Ns Flush) 2 ml IV.FLUSH BID [facility] Last Admin: 04/26/18 08:01 Dose: 2 ml Sodium Chloride (Ns Flush) 2 ml IV.FLUSH PRN PRN PRN Reason: FLUSH AFTER USING IV ACCESS Sodium Chloride (Ns Flush) 0 ml IV.FLUSH DAILY [facility] Last Admin: 04/26/18 08:01 Dose: 2 ml Terbutaline Sulfate (Brethine Inj) 1 mg SQ UNSCH PRN PRN Reason: For Extravasation Vancomycin HCl (Vancomycin Po) 250 mg PO QID [facility] Last Admin: 04/26/18 08:01 Dose: 250 mg Allergies Allergy/AdvReac Type Severity Reaction Status Date / Time No Known Allergies Allergy none Uncoded 04/17/18 13:51 Home Medications Medication Instructions Recorded Confirmed Type diltiazem HCl [Cartia XT] 240 mg PO DAILY 04/11/18 04/11/18 History potassium 10 meq PO DAILY 04/11/18 04/11/18 History Advance Directives Living Will: Yes Healthcare Surrogate: Yes (Daughter) Today's verbally stated goals: The patient reportedly has a living will with typical language regarding end- stage and terminal conditions Family/friends goals: The patient's daughter reports that the patient had expressed her wishes in past years that she would not want to be kept alive artificially or to have her life prolonged if there would be no quality. She did complete a living will. The daughter is asking that the patient not be resuscitated, and is considering a possible transition to hospice care. Ethical and Legal Issues: The patient lacks capacity for decision-making, and it seems very unlikely that she will regain that capacity. Her daughter reports she is the healthcare surrogate. Physical Exam Vital Signs: Vital Signs - 24 hr 04/25/18 10:45 04/25/18 11:00 04/25/18 11:04 Temperature Pulse Rate 61 62 66 Respiratory Rate 14 17 17 Blood Pressure 104/57 L 117/62 Pulse Oximetry 99 96 97 04/25/18 11:15 04/25/18 11:30 04/25/18 11:45 Temperature Pulse Rate 63 62 Respiratory Rate 17 14 Blood Pressure 117/56 L 96/53 L Pulse Oximetry 98 99 04/25/18 11:46 04/25/18 12:00 04/25/18 12:14 Temperature Pulse Rate 67 64 66 Respiratory Rate 19 22 18 Blood Pressure 128/59 L 110/58 L Pulse Oximetry 98 100 04/25/18 12:15 04/25/18 12:30 04/25/18 12:45 Temperature Pulse Rate 64 65 54 L Respiratory Rate 17 18 12 Blood Pressure 105/55 L 103/56 L 110/56 L Pulse Oximetry 97 99 95 08/08/18 13:00 04/25/18 13:01 04/25/18 13:15 Temperature Pulse Rate 65 60 66 Respiratory Rate 17 18 18 Blood Pressure 93/51 L 91/54 L Pulse Oximetry 94 L 97 97 04/25/18 14:00 04/25/18 14:01 04/25/18 14:15 Temperature 94.8 F L Pulse Rate 60 60 51 L Respiratory Rate 17 16 14 Blood Pressure 100/49 L 91/53 L Pulse Oximetry 99 99 04/25/18 14:31 04/25/18 14:45 04/25/18 15:00 Temperature Pulse Rate 67 49 L 132 H Respiratory Rate 18 13 19 Blood Pressure 94/42 L 97/53 L 86/54 L Pulse Oximetry 99 95 75 L 04/25/18 15:16 04/25/18 15:17 04/25/18 15:30 Temperature Pulse Rate 54 L 50 L 52 L Respiratory Rate 19 20 13 Blood Pressure 105/57 L 119/64 Pulse Oximetry 81 L 100 100 04/25/18 15:46 04/25/18 16:00 04/25/18 17:00 Temperature 95 F L Pulse Rate 56 L 59 L 60 Respiratory Rate 18 19 18 Blood Pressure 125/60 123/55 L 110/53 L Pulse Oximetry 100 100 100 04/25/18 17:15 04/25/18 17:28 04/25/18 17:30 Temperature Pulse Rate 53 L 51 L 52 L Respiratory Rate 16 14 Blood Pressure 97/54 L 97/54 L 99/56 L Pulse Oximetry 100 99 04/25/18 17:45 04/25/18 18:00 04/25/18 19:00 Temperature 95.9 F L 96.6 F L Pulse Rate 49 L 55 L 75 Respiratory Rate 13 20 Blood Pressure 96/55 L 102/57 L 99/52 L Pulse Oximetry 100 100 04/25/18 20:00 04/25/18 20:35 04/25/18 21:00 Temperature 96.6 F L Pulse Rate 59 L 63 56 L Respiratory Rate 24 Blood Pressure 99/52 L Pulse Oximetry 100 100 04/25/18 22:00 04/25/18 23:00 04/26/18 00:00 Temperature 98.1 F 98.1 F Pulse Rate 58 L 58 L Respiratory Rate Blood Pressure 107/64 100/55 L 100/55 L Pulse Oximetry 04/26/18 02:00 04/26/18 03:00 04/26/18 04:00 Temperature 97.5 F L 97.3 F L Pulse Rate 57 L 71 Respiratory Rate Blood Pressure 100/52 L Pulse Oximetry 04/26/18 05:00 04/26/18 06:00 04/26/18 06:26 Temperature 97.3 F L 97.3 F L 97.5 F L Pulse Rate 71 Respiratory Rate Blood Pressure Pulse Oximetry 04/26/18 07:00 04/26/18 08:00 04/26/18 08:15 Temperature 97.2 F L Pulse Rate 63 62 Respiratory Rate 20 Blood Pressure Pulse Oximetry 95 04/26/18 08:23 04/26/18 08:42 Temperature 97.0 F L 96.8 F L Pulse Rate 96 H 96 H Respiratory Rate 18 18 Blood Pressure 127/60 114/67 Pulse Oximetry 100 94 L I&O: Intake & Output 04/24/18 04/25/18 04/26/18 04/27/18 06:59 06:59 06:59 06:59 Intake Total 4370 / 4370 4470 / 4470 400 / 400 Output Total 1810 / 1810 2960 / 2960 500 / 500 Balance 2560 / 2560 1510 / 1510 -100 / -100 Weight 99.3 kg 99.3 kg Physical Exam: CONSTITUTIONAL/GENERAL: This is an elderly, weak, confused patient, in no apparent distress. TUBES/LINES/DRAINS: IV access, Wren, nasal oxygen SKIN: No jaundice, rashes, or lesions. Ecchymoses on upper extremities and right neck/chest. No wounds seen anteriorly. Skin temperature appropriate. Not diaphoretic. HEAD: Atraumatic. Normocephalic. EYES: Pupils equal and round. No scleral icterus. No injection or drainage. Fundi not examined. ENT: Nose without bleeding or purulent drainage. Throat without visible erythema , exudates, masses, or lesions. NECK: Trachea midline. Supple, nontender. No palpable thyroid enlargement or nodularity. CARDIOVASCULAR: Regular rate and rhythm without murmurs, gallops, or rubs. No JVD. Peripheral pulses symmetric. RESPIRATORY/CHEST: Symmetric, unlabored respirations. Scattered rhonchi. GASTROINTESTINAL: Abdomen soft, non-tender, nondistended. No hepato-splenomegaly , or palpable masses. No guarding. Bowel sounds present. GENITOURINARY: Without palpable bladder distension. Wren catheter in place. MUSCULOSKELETAL: Extremities without clubbing, cyanosis, but there is chronic doughy edema of the legs. No joint tenderness or effusion noted. No calf tenderness. No mottling or clubbing. LYMPHATICS: No palpable cervical or supraclavicular adenopathy. NEUROLOGICAL: Awakens easily, mumbles and sometimes calls out. Not following commands now. Moves all extremities. PSYCHIATRIC: No obvious anxiety/depression. no apparent hallucinations or other psychotic thought process. Diagnostic Tests Laboratory: Laboratory Results - last 72 hr 04/24/18 04/24/18 04/24/18 21:12 21:28 21:28 WBC 40.3 H RBC 4.44 Hgb 12.7 Hct 38.0 MCV 85.6 MCH 28.6 MCHC 33.4 RDW 18.4 H Plt Count 215 MPV 9.5 Prelim Diff (Auto) Slide review pending Neut % (Auto) 95.2 H Lymph % (Auto) 2.5 L [place] % (Auto) 1.4 Eos % (Auto) 0.6 Baso % (Auto) 0.3 Neut # (Auto) 38.4 H Lymph # (Auto) 1.0 [place] # (Auto) 0.5 Eos # (Auto) 0.2 Baso # (Auto) 0.1 WBC Differential Manual diff final Diff Scan Seg Neuts % (Manual) 95 H Band Neuts % (Manual) Lymphocytes % (Manual) 1 L Monocytes % (Manual) 4 Eosinophils % (Manual) Abs Neuts (Manual) 38.3 H Differential Comment . Toxic Granulation 1+ H Toxic Vacuolation Present H Dohle Bodies Platelet Estimate Platelet Morphology Ovalocytes Keratocytes PT 11.8 H D INR 1.2 APTT 32.0 H Puncture Site Left radial Patient Temperature 98.6 O2 Saturation 98 ABG pH 7.56 H* ABG pCO2 19 L* ABG pO2 251 H ABG HCO3 17 L ABG O2 Content 18.3 ABG Base Excess -5.5 L ABG Methemoglobin 0.7 Parish Test Present Hemoglobin 12.9 Carboxyhemoglobin 0.8 O2 Delivery Device Prb Liter Flow 15.00 Critical Value Yes Sodium Potassium Chloride Carbon Dioxide Anion Gap BUN Creatinine Estimated GFR POC Glucose Random Glucose Lactic Acid Calcium Prot Corrected Calcium Phosphorus Magnesium Total Bilirubin AST ALT Alkaline Phosphatase Total Creatine Kinase CK-MB (CK-2) Troponin I Total Protein Albumin Lipase TSH Urine Color Urine Clarity Urine pH Ur Specific [place] Urine Protein Urine Glucose (UA) Urine Ketones Urine Occult Blood Urine Nitrate Urine Bilirubin Urine Urobilinogen Ur Leukocyte Esterase Urine RBC Urine WBC Urine WBC Clumps Ur Squamous Epith Cells Ur Transition Epith Cell Ur Renal Epithelial Cell Urine Bacteria Hyaline Casts Granular Casts Urine Mucus Micro UA Comment Urine Culture Comments Nasal Screen MRSA (PCR) Stl C.difficile Tox PCR St C. diff Tox Epid 027 Blood Type Blood Type Recheck Antibody Screen MTS Gel Crossmatch 04/24/18 04/24/18 04/24/18 21:28 21:28 23:04 WBC RBC Hgb Hct MCV MCH MCHC RDW Plt Count MPV Prelim Diff (Auto) Neut % (Auto) Lymph % (Auto) [place] % (Auto) Eos % (Auto) Baso % (Auto) Neut # (Auto) Lymph # (Auto) [place] # (Auto) Eos # (Auto) Baso # (Auto) WBC Differential Diff Scan Seg Neuts % (Manual) Band Neuts % (Manual) Lymphocytes % (Manual) Monocytes % (Manual) Eosinophils % (Manual) Abs Neuts (Manual) Differential Comment Toxic Granulation Toxic Vacuolation Dohle Bodies Platelet Estimate Platelet Morphology Ovalocytes Keratocytes PT INR APTT Puncture Site Patient Temperature O2 Saturation ABG pH ABG pCO2 ABG pO2 ABG HCO3 ABG O2 Content ABG Base Excess ABG Methemoglobin [place] Test Hemoglobin Carboxyhemoglobin O2 Delivery Device Liter Flow Critical Value Sodium 129 L Potassium 4.4 Chloride 99 Carbon Dioxide 16.9 L Anion Gap 13 BUN 31 H Creatinine 0.76 Estimated GFR 73 L POC Glucose Random Glucose 104 Lactic Acid 1.5 Calcium 7.2 L* Prot Corrected Calcium 8.3 L Phosphorus Magnesium 1.7 Total Bilirubin 0.8 AST 57 H ALT 23 Alkaline Phosphatase 180 H Total Creatine Kinase 125 CK-MB (CK-2) 1.0 Troponin I 0.07 H Total Protein 5.0 L Albumin 1.4 L Lipase 27 L TSH Urine Color Sadie Urine Clarity Cloudy H Urine pH 5.0 Ur Specific [place] 1.016 Urine Protein Negative Urine Glucose (UA) Negative Urine Ketones Negative Urine Occult Blood Negative Urine Nitrate Negative Urine Bilirubin Negative Urine Urobilinogen Less than 2 Ur Leukocyte Esterase Large H Urine RBC 11 H Urine WBC Urine WBC Clumps Many H Ur Squamous Epith Cells <1 Ur Transition Epith Cell <1 Ur Renal Epithelial Cell <1 Urine Bacteria Occasional H Hyaline Casts 74 Granular Casts 4 Urine Mucus Few H Micro UA Comment Cath-culture ind Urine Culture Comments Cath-cult indicated Nasal Screen MRSA (PCR) Stl C.difficile Tox PCR St C. diff Tox Epid 027 Blood Type Blood Type Recheck Antibody Screen MTS Gel Crossmatch 04/25/18 04/25/18 04/25/18 00:04 02:16 03:24 WBC RBC Hgb Hct MCV MCH MCHC RDW Plt Count MPV Prelim Diff (Auto) Neut % (Auto) Lymph % (Auto) [place] % (Auto) Eos % (Auto) Baso % (Auto) Neut # (Auto) Lymph # (Auto) [place] # (Auto) Eos # (Auto) Baso # (Auto) WBC Differential Diff Scan Seg Neuts % (Manual) Band Neuts % (Manual) Lymphocytes % (Manual) Monocytes % (Manual) Eosinophils % (Manual) Abs Neuts (Manual) Differential Comment Toxic Granulation Toxic Vacuolation Dohle Bodies Platelet Estimate Platelet Morphology Ovalocytes Keratocytes PT 13.2 H INR 1.3 APTT 47.1 H D Puncture Site Patient Temperature O2 Saturation ABG pH ABG pCO2 ABG pO2 ABG HCO3 ABG O2 Content ABG Base Excess ABG Methemoglobin [place] Test Hemoglobin Carboxyhemoglobin O2 Delivery Device Liter Flow Critical Value Sodium Potassium Chloride Carbon Dioxide Anion Gap BUN Creatinine Estimated GFR POC Glucose 117 H Random Glucose Lactic Acid Calcium Prot Corrected Calcium Phosphorus Magnesium Total Bilirubin AST ALT Alkaline Phosphatase Total Creatine Kinase CK-MB (CK-2) Troponin I Total Protein Albumin Lipase TSH Urine Color Urine Clarity Urine pH Ur Specific [place] Urine Protein Urine Glucose (UA) Urine Ketones Urine Occult Blood Urine Nitrate Urine Bilirubin Urine Urobilinogen Ur Leukocyte Esterase Urine RBC Urine WBC Urine WBC Clumps Ur Squamous Epith Cells Ur Transition Epith Cell Ur Renal Epithelial Cell Urine Bacteria Hyaline Casts Granular Casts Urine Mucus Micro UA Comment Urine Culture Comments Nasal Screen MRSA (PCR) Mrsa detected Stl C.difficile Tox PCR St C. diff Tox Epid 027 Blood Type Blood Type Recheck Antibody Screen MTS Gel Crossmatch 04/25/18 04/25/18 04/25/18 06:12 06:55 06:55 WBC 48.5 H RBC 3.31 L Hgb 9.5 L D Hct 28.6 L MCV 86.3 MCH 28.6 MCHC 33.1 RDW 18.4 H Plt Count 150 D MPV 8.3 Prelim Diff (Auto) Manual diff required Neut % (Auto) Lymph % (Auto) [place] % (Auto) Eos % (Auto) Baso % (Auto) Neut # (Auto) Lymph # (Auto) [place] # (Auto) Eos # (Auto) Baso # (Auto) WBC Differential Manual diff final Diff Scan Seg Neuts % (Manual) 83 H Band Neuts % (Manual) 15 H Lymphocytes % (Manual) Monocytes % (Manual) 1 Eosinophils % (Manual) 1 Abs Neuts (Manual) 47.5 H Differential Comment . Toxic Granulation Toxic Vacuolation Present H Dohle Bodies Platelet Estimate Normal Platelet Morphology Normal Ovalocytes Keratocytes PT 18.1 H INR 1.8 APTT 69.6 H D Puncture Site Patient Temperature O2 Saturation ABG pH ABG pCO2 ABG pO2 ABG HCO3 ABG O2 Content ABG Base Excess ABG Methemoglobin [place] Test Hemoglobin Carboxyhemoglobin O2 Delivery Device Liter Flow Critical Value Sodium 138 Potassium 2.2 L* D Chloride 106 Carbon Dioxide 18.5 L Anion Gap 14 BUN 28 H Creatinine 0.51 Estimated GFR Greater than 89 POC Glucose Random Glucose 137 H Lactic Acid Calcium 7.6 L Prot Corrected Calcium Phosphorus 2.8 Magnesium 1.5 Total Bilirubin 1.3 H AST 20 ALT 13 Alkaline Phosphatase 109 Total Creatine Kinase CK-MB (CK-2) Troponin I Total Protein 3.7 L D Albumin 1.7 L Lipase TSH Urine Color Urine Clarity Urine pH Ur Specific [place] Urine Protein Urine Glucose (UA) Urine Ketones Urine Occult Blood Urine Nitrate Urine Bilirubin Urine Urobilinogen Ur Leukocyte Esterase Urine RBC Urine WBC Urine WBC Clumps Ur Squamous Epith Cells Ur Transition Epith Cell Ur Renal Epithelial Cell Urine Bacteria Hyaline Casts Granular Casts Urine Mucus Micro UA Comment Urine Culture Comments Nasal Screen MRSA (PCR) Stl C.difficile Tox PCR St C. diff Tox Epid 027 Blood Type Blood Type Recheck Antibody Screen MTS Gel Crossmatch 04/25/18 04/25/18 04/25/18 06:55 07:15 08:33 WBC RBC Hgb Hct MCV MCH MCHC RDW Plt Count MPV Prelim Diff (Auto) Neut % (Auto) Lymph % (Auto) [place] % (Auto) Eos % (Auto) Baso % (Auto) Neut # (Auto) Lymph # (Auto) [place] # (Auto) Eos # (Auto) Baso # (Auto) WBC Differential Diff Scan Seg Neuts % (Manual) Band Neuts % (Manual) Lymphocytes % (Manual) Monocytes % (Manual) Eosinophils % (Manual) Abs Neuts (Manual) Differential Comment Toxic Granulation Toxic Vacuolation Dohle Bodies Platelet Estimate Platelet Morphology Ovalocytes Keratocytes PT INR APTT Puncture Site Patient Temperature O2 Saturation ABG pH ABG pCO2 ABG pO2 ABG HCO3 ABG O2 Content ABG Base Excess ABG Methemoglobin [place] Test Hemoglobin Carboxyhemoglobin O2 Delivery Device Liter Flow Critical Value Sodium Potassium 2.1 L* Chloride Carbon Dioxide Anion Gap BUN Creatinine Estimated GFR POC Glucose Random Glucose Lactic Acid 2.0 Calcium Prot Corrected Calcium Phosphorus Magnesium Total Bilirubin AST ALT Alkaline Phosphatase Total Creatine Kinase CK-MB (CK-2) Troponin I Total Protein Albumin Lipase TSH Urine Color Urine Clarity Urine pH Ur Specific [place] Urine Protein Urine Glucose (UA) Urine Ketones Urine Occult Blood Urine Nitrate Urine Bilirubin Urine Urobilinogen Ur Leukocyte Esterase Urine RBC Urine WBC Urine WBC Clumps Ur Squamous Epith Cells Ur Transition Epith Cell Ur Renal Epithelial Cell Urine Bacteria Hyaline Casts Granular Casts Urine Mucus Micro UA Comment Urine Culture Comments Nasal Screen MRSA (PCR) Stl C.difficile Tox PCR Negative St C. diff Tox Epid 027 Negative Blood Type Blood Type Recheck Antibody Screen MTS Gel Crossmatch 04/25/18 04/25/18 04/25/18 10:20 14:30 14:30 WBC RBC Hgb Hct MCV MCH MCHC RDW Plt Count MPV Prelim Diff (Auto) Neut % (Auto) Lymph % (Auto) [place] % (Auto) Eos % (Auto) Baso % (Auto) Neut # (Auto) Lymph # (Auto) [place] # (Auto) Eos # (Auto) Baso # (Auto) WBC Differential Diff Scan Seg Neuts % (Manual) Band Neuts % (Manual) Lymphocytes % (Manual) Monocytes % (Manual) Eosinophils % (Manual) Abs Neuts (Manual) Differential Comment Toxic Granulation Toxic Vacuolation Dohle Bodies Platelet Estimate Platelet Morphology Ovalocytes Keratocytes PT INR APTT Puncture Site Patient Temperature O2 Saturation ABG pH ABG pCO2 ABG pO2 ABG HCO3 ABG O2 Content ABG Base Excess ABG Methemoglobin [place] Test Hemoglobin Carboxyhemoglobin O2 Delivery Device Liter Flow Critical Value Sodium 138 Potassium 2.3 L* Chloride 108 H Carbon Dioxide 17.2 L Anion Gap 13 BUN 24 H Creatinine 0.67 Estimated GFR 84 L POC Glucose Random Glucose 208 H Lactic Acid 2.1 H Calcium 6.9 L* Prot Corrected Calcium 8.6 Phosphorus 2.2 L Magnesium 1.5 Total Bilirubin AST ALT Alkaline Phosphatase Total Creatine Kinase CK-MB (CK-2) Troponin I Total Protein 4.0 L Albumin Lipase TSH Urine Color Urine Clarity Urine pH Ur Specific [place] Urine Protein Urine Glucose (UA) Urine Ketones Urine Occult Blood Urine Nitrate Urine Bilirubin Urine Urobilinogen Ur Leukocyte Esterase Urine RBC Urine WBC Urine WBC Clumps Ur Squamous Epith Cells Ur Transition Epith Cell Ur Renal Epithelial Cell Urine Bacteria Hyaline Casts Granular Casts Urine Mucus Micro UA Comment Urine Culture Comments Nasal Screen MRSA (PCR) Stl C.difficile Tox PCR St C. diff Tox Epid 027 Blood Type A Positive Blood Type Recheck Required Antibody Screen Negative MTS Gel Crossmatch 04/25/18 04/25/18 04/26/18 18:35 22:15 00:15 WBC RBC Hgb Hct MCV MCH MCHC RDW Plt Count MPV Prelim Diff (Auto) Neut % (Auto) Lymph % (Auto) [place] % (Auto) Eos % (Auto) Baso % (Auto) Neut # (Auto) Lymph # (Auto) [place] # (Auto) Eos # (Auto) Baso # (Auto) WBC Differential Diff Scan Seg Neuts % (Manual) Band Neuts % (Manual) Lymphocytes % (Manual) Monocytes % (Manual) Eosinophils % (Manual) Abs Neuts (Manual) Differential Comment Toxic Granulation Toxic Vacuolation Dohle Bodies Platelet Estimate Platelet Morphology Ovalocytes Keratocytes PT INR APTT Greater than 277.5 H* 191.4 H* D 88.4 H D Puncture Site Patient Temperature O2 Saturation ABG pH ABG pCO2 ABG pO2 ABG HCO3 ABG O2 Content ABG Base Excess ABG Methemoglobin [place] Test Hemoglobin Carboxyhemoglobin O2 Delivery Device Liter Flow Critical Value Sodium Potassium Chloride Carbon Dioxide Anion Gap BUN Creatinine Estimated GFR POC Glucose Random Glucose Lactic Acid Calcium Prot Corrected Calcium Phosphorus Magnesium Total Bilirubin AST ALT Alkaline Phosphatase Total Creatine Kinase CK-MB (CK-2) Troponin I Total Protein Albumin Lipase TSH Urine Color Urine Clarity Urine pH Ur Specific [place] Urine Protein Urine Glucose (UA) Urine Ketones Urine Occult Blood Urine Nitrate Urine Bilirubin Urine Urobilinogen Ur Leukocyte Esterase Urine RBC Urine WBC Urine WBC Clumps Ur Squamous Epith Cells Ur Transition Epith Cell Ur Renal Epithelial Cell Urine Bacteria Hyaline Casts Granular Casts Urine Mucus Micro UA Comment Urine Culture Comments Nasal Screen MRSA (PCR) Stl C.difficile Tox PCR St C. diff Tox Epid 027 Blood Type Blood Type Recheck Antibody Screen MTS Gel Crossmatch 04/26/18 04/26/18 04/26/18 04:15 04:15 04:20 WBC 22.7 H D RBC 1.76 L Hgb 4.9 L* D Hct 15.1 L* MCV 85.6 MCH 28.1 MCHC 32.9 RDW 18.9 H Plt Count 115 L MPV 8.3 Prelim Diff (Auto) Neut % (Auto) Lymph % (Auto) [place] % (Auto) Eos % (Auto) Baso % (Auto) Neut # (Auto) Lymph # (Auto) [place] # (Auto) Eos # (Auto) Baso # (Auto) WBC Differential Diff Scan Seg Neuts % (Manual) Band Neuts % (Manual) Lymphocytes % (Manual) Monocytes % (Manual) Eosinophils % (Manual) Abs Neuts (Manual) Differential Comment Toxic Granulation Toxic Vacuolation Dohle Bodies Platelet Estimate Platelet Morphology Ovalocytes Keratocytes PT INR APTT Puncture Site Patient Temperature O2 Saturation ABG pH ABG pCO2 ABG pO2 ABG HCO3 ABG O2 Content ABG Base Excess ABG Methemoglobin [place] Test Hemoglobin Carboxyhemoglobin O2 Delivery Device Liter Flow Critical Value Sodium Potassium Chloride Carbon Dioxide Anion Gap BUN Creatinine Estimated GFR POC Glucose Random Glucose Lactic Acid 1.1 Calcium Prot Corrected Calcium Phosphorus Magnesium Total Bilirubin AST ALT Alkaline Phosphatase Total Creatine Kinase CK-MB (CK-2) Troponin I Total Protein Albumin Lipase TSH 1.220 Urine Color Urine Clarity Urine pH Ur Specific [place] Urine Protein Urine Glucose (UA) Urine Ketones Urine Occult Blood Urine Nitrate Urine Bilirubin Urine Urobilinogen Ur Leukocyte Esterase Urine RBC Urine WBC Urine WBC Clumps Ur Squamous Epith Cells Ur Transition Epith Cell Ur Renal Epithelial Cell Urine Bacteria Hyaline Casts Granular Casts Urine Mucus Micro UA Comment Urine Culture Comments Nasal Screen MRSA (PCR) Stl C.difficile Tox PCR St C. diff Tox Epid 027 Blood Type Blood Type Recheck Antibody Screen MTS Gel Crossmatch 04/26/18 04/26/18 04/26/18 05:00 05:22 07:35 WBC 22.3 H RBC 1.77 L Hgb 4.9 L* Hct 15.3 L* MCV 86.5 MCH 27.9 MCHC 32.2 RDW 19.1 H Plt Count 121 L MPV 8.5 Prelim Diff (Auto) Slide review pending Neut % (Auto) 88.5 H Lymph % (Auto) 7.8 L [place] % (Auto) 3.5 Eos % (Auto) 0.1 Baso % (Auto) 0.1 Neut # (Auto) 19.8 H Lymph # (Auto) 1.7 [place] # (Auto) 0.8 Eos # (Auto) 0.0 Baso # (Auto) 0.0 WBC Differential . Diff Scan Auto diff confirmed Seg Neuts % (Manual) Band Neuts % (Manual) Lymphocytes % (Manual) Monocytes % (Manual) Eosinophils % (Manual) Abs Neuts (Manual) Differential Comment . Toxic Granulation Toxic Vacuolation Dohle Bodies Present H Platelet Estimate Low L Platelet Morphology Normal Ovalocytes 1+ H Keratocytes Occ H PT INR APTT Greater than 277.5 H* Puncture Site Patient Temperature O2 Saturation ABG pH ABG pCO2 ABG pO2 ABG HCO3 ABG O2 Content ABG Base Excess ABG Methemoglobin [place] Test Hemoglobin Carboxyhemoglobin O2 Delivery Device Liter Flow Critical Value Sodium Potassium Chloride Carbon Dioxide Anion Gap BUN Creatinine Estimated GFR POC Glucose Random Glucose Lactic Acid Calcium Prot Corrected Calcium Phosphorus Magnesium Total Bilirubin AST ALT Alkaline Phosphatase Total Creatine Kinase CK-MB (CK-2) Troponin I Total Protein Albumin Lipase TSH Urine Color Urine Clarity Urine pH Ur Specific [place] Urine Protein Urine Glucose (UA) Urine Ketones Urine Occult Blood Urine Nitrate Urine Bilirubin Urine Urobilinogen Ur Leukocyte Esterase Urine RBC Urine WBC Urine WBC Clumps Ur Squamous Epith Cells Ur Transition Epith Cell Ur Renal Epithelial Cell Urine Bacteria Hyaline Casts Granular Casts Urine Mucus Micro UA Comment Urine Culture Comments Nasal Screen MRSA (PCR) Stl C.difficile Tox PCR St C. diff Tox Epid 027 Blood Type Blood Type Recheck Antibody Screen MTS Gel Crossmatch See Detail 04/26/18 04/26/18 07:35 08:50 WBC RBC Hgb Hct MCV MCH MCHC RDW Plt Count MPV Prelim Diff (Auto) Neut % (Auto) Lymph % (Auto) [place] % (Auto) Eos % (Auto) Baso % (Auto) Neut # (Auto) Lymph # (Auto) [place] # (Auto) Eos # (Auto) Baso # (Auto) WBC Differential Diff Scan Seg Neuts % (Manual) Band Neuts % (Manual) Lymphocytes % (Manual) Monocytes % (Manual) Eosinophils % (Manual) Abs Neuts (Manual) Differential Comment Toxic Granulation Toxic Vacuolation Dohle Bodies Platelet Estimate Platelet Morphology Ovalocytes Keratocytes PT INR APTT Puncture Site Patient Temperature O2 Saturation ABG pH ABG pCO2 ABG pO2 ABG HCO3 ABG O2 Content ABG Base Excess ABG Methemoglobin [place] Test Hemoglobin Carboxyhemoglobin O2 Delivery Device Liter Flow Critical Value Sodium 138 Potassium 2.2 L* Chloride 108 H Carbon Dioxide 18.7 L Anion Gap 11 BUN 22 H Creatinine 0.46 L Estimated GFR Greater than 89 POC Glucose Random Glucose 135 H Lactic Acid Calcium 7.1 L* Prot Corrected Calcium 8.9 Phosphorus Magnesium Total Bilirubin 1.0 AST 18 ALT 13 Alkaline Phosphatase 74 Total Creatine Kinase CK-MB (CK-2) Troponin I Total Protein 4.0 L Albumin 2.5 L D Lipase TSH Urine Color Urine Clarity Urine pH Ur Specific [place] Urine Protein Urine Glucose (UA) Urine Ketones Urine Occult Blood Urine Nitrate Urine Bilirubin Urine Urobilinogen Ur Leukocyte Esterase Urine RBC Urine WBC Urine WBC Clumps Ur Squamous Epith Cells Ur Transition Epith Cell Ur Renal Epithelial Cell Urine Bacteria Hyaline Casts Granular Casts Urine Mucus Micro UA Comment Urine Culture Comments Nasal Screen MRSA (PCR) Stl C.difficile Tox PCR St C. diff Tox Epid 027 Blood Type Blood Type Recheck Antibody Screen MTS Gel Crossmatch See Detail Result Diagrams: 04/27/18 04:30 04/27/18 04:30 Microbiology: Microbiology 04/24/18 23:04 Urine Culture - Preliminary Catheterized Urine gram negative rods 04/24/18 20:35 Aerobic Blood Culture - Preliminary Blood - Peripheral gram positive cocci Anaerobic Blood Culture - Preliminary gram positive cocci 04/24/18 21:30 Aerobic Blood Culture - Preliminary Blood - Peripheral gram positive cocci Anaerobic Blood Culture - Preliminary gram positive cocci 04/25/18 07:15 Stool Occult Blood ([facility]) - Final Stool Hemoccult negative Imaging: Abdomen/Pelvis CT 04/25/18 00:00 CONCLUSION: 1. There are moderately distended air and fluid-filled loops of large bowel noted diffusely. 2. Body wall edema. 3. No focal fluid collections are identified to suggest abscess. Chest CTA 04/25/18 00:00 CONCLUSION: 1. The examination is positive for pulmonary embolus on the left. 2. Left thyroid nodule. 3. Small left pleural effusion. 4. Dilatation of the main pulmonary artery. Chest X-Ray 04/25/18 09:04 CONCLUSION: 1. Tip of the left subclavian central line low within the right atrium. No pneumothorax. 2. Right internal jugular vein central venous line unchanged. Abdomen X-Ray 04/26/18 07:00 CONCLUSION: Persistent colonic distention. Procedures: Right IJ line 04/24/18 Patient/Family Conference Family Conference Time: 37 Family Conference Location: Telephone Issues Discussed: * Palliative care role, purpose, approach * Additional medical, psychosocial, and spiritual history * Patients general health, functional status, and cognitive changes in the months leading up to the current hospitalization * Patient/family understanding of the current medical problems * Patient/family understanding of prognosis * Patients goals of care as best understood from advance directives and/or conversations and/or values * Current medical treatment options and benefits/burdens of those options * Likely scenarios comparing ongoing aggressive care with a transition to comfort measures only * Questions answered to the best of my ability * Palliative care contact information provided Assessment and Plan - Disease Oriented Problem List (1) Septic shock (2) Clostridium difficile colitis (3) Toxic megacolon due to Clostridium difficile (4) Dementia (5) assisted resident (6) Malnutrition - Symptom Scale (1) Pain 0-10 Scale: Unable to quantify (2) Encephalopathy 0-10 Scale: Unable to quantify (3) Diarrhea 0-10 Scale: Unable to quantify Pertinent Non-Medical Issues: Psychosocial: Originally from [place], lived many years in [place], came to [place] a few years ago. once, about 24 years ago. Has one daughter and one son, the son lives in the daughter lives locally. 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 Spiritual: The daughter reports the patient has not been spiritual or jain and that she would not want a sales representative advertising to visit. Legal: The patient lacks capacity for decision-making and she will not regain that capacity. Her daughter is the designated healthcare surrogate. Ethical issues impacting care: None Important Contacts: Daughter: Ankita Abbott Home: Prognosis: Prognosis is quite poor. This is her third episode of sepsis in the last 3 months, she is significantly malnourished and weak, and now has pulmonary embolism and significant blood loss. She is appropriate for hospice services if the goals become comfort oriented. Code Status: No Code DNR Plan: * DO NOT RESUSCITATE, per request of daughter 04/25/18 * DECISION-MAKING: The patient lacks capacity for decision-making, and it seems very unlikely that she will regain that capacity. Her daughter reports she is the healthcare surrogate. * GOALS: Daughter definitely wants no resuscitation, and she is considering a possible transition to hospice services/comfort measures for end-of-life care. * SYMPTOMS: It is difficult to tell if the patient has pain, but she does occasionally call out. Her encephalopathy is fairly profound. * Palliative Care will continue to follow the patient during this hospitalization. Appreciation Thank you for the opportunity to participate in the care of Elaine Todd.
[2018-04-26] MEDS: Potassium Chlor 40 mEq Premix 40 MEQ/100 ML PIGGYBACK IV.SIG SCH ×2 (11:18→13:36)
--- NOTE | 2018-04-26 11:39 | P.PNCC ---
Subjective Subjective Remarks/Hospital Course: 83-year-old female presents from rehab facility after patient found to have altered mentation decreased blood pressure and O2 saturation of 53% on room air. Patient was just released from the hospital today after hospitalization for urosepsis, hyperkalemia and Clostridium difficile colitis. Patient was found to be hypothermic reportedly according to rehab nursing notes with a temperature of 93F upon her arrival to the nursing facility at 3 PM. Patient was noted by fire department to have room air O2 saturation of 53% as well and was placed on supplemental oxygen IV access was not able to be obtained EMS transported patient with decreased level of consciousness blood sugar 153 hypotensive with systolic pressure of 80 with peripheral cyanosis and decreased mentation. Upon patient arrival she is awake complaining of pain and asking for help O2 saturation 99% on partial rebreather mask. Patient has history of atrial fibrillation with left bundle branch block. The CT of the chest shows positive study for pulmonary embolism with a dilation of the main pulmonary artery. 04/25: Afebrile. Remains on phenylephrine drip at 110 mcg/min and heparin drip at 800 units an hour. On Venturi mask at 30% satting 100%. Abdomen remains tender. Decentralized place secondary to right IJ currently at 8 cm. with multiple vasopressor medications in use. Subjective 04/26: Afebrile. Hemoglobin down to 5 this a.m. Currently being transfused 2 PRBCs. Continues with bruising bilateral femoral regions from attempted femoral central line placement in ED. Currently with a left subclavian CVL without signs of bleeding. Remains on telemetry but 110 mcg/min. On diet Objective Vital Signs / I&O: Vital Signs 04/25/18 11:45 04/25/18 11:46 04/25/18 12:00 Temperature Pulse Rate 67 64 Respiratory Rate 19 22 Blood Pressure 128/59 L 110/58 L Pulse Oximetry 99 98 100 04/25/18 12:14 04/25/18 12:15 04/25/18 12:30 Temperature Pulse Rate 66 64 65 Respiratory Rate 18 17 18 Blood Pressure 105/55 L 103/56 L Pulse Oximetry 97 99 04/25/18 12:45 04/25/18 13:00 04/25/18 13:01 Temperature Pulse Rate 54 L 65 60 Respiratory Rate 12 17 18 Blood Pressure 110/56 L 93/51 L Pulse Oximetry 95 94 L 97 04/25/18 13:15 04/25/18 14:00 04/25/18 14:01 Temperature 94.8 F L Pulse Rate 66 60 60 Respiratory Rate 18 17 16 Blood Pressure 91/54 L 100/49 L Pulse Oximetry 97 99 04/25/18 14:15 04/25/18 14:31 04/25/18 14:45 Temperature Pulse Rate 51 L 67 49 L Respiratory Rate 14 18 13 Blood Pressure 91/53 L 94/42 L 97/53 L Pulse Oximetry 99 99 95 04/25/18 15:00 04/25/18 15:16 04/25/18 15:17 Temperature Pulse Rate 132 H 54 L 50 L Respiratory Rate 19 19 20 Blood Pressure 86/54 L 105/57 L Pulse Oximetry 75 L 81 L 100 04/25/18 15:30 04/25/18 15:46 04/25/18 16:00 Temperature 95 F L Pulse Rate 52 L 56 L 59 L Respiratory Rate 13 18 19 Blood Pressure 119/64 125/60 123/55 L Pulse Oximetry 100 100 100 04/25/18 17:00 04/25/18 17:15 04/25/18 17:28 Temperature Pulse Rate 60 53 L 51 L Respiratory Rate 18 16 Blood Pressure 110/53 L 97/54 L 97/54 L Pulse Oximetry 100 100 04/25/18 17:30 04/25/18 17:45 04/25/18 18:00 Temperature 95.9 F L Pulse Rate 52 L 49 L 55 L Respiratory Rate 14 13 20 Blood Pressure 99/56 L 96/55 L 102/57 L Pulse Oximetry 99 100 100 04/25/18 19:00 04/25/18 20:00 04/25/18 20:35 Temperature 96.6 F L 96.6 F L Pulse Rate 75 59 L 63 Respiratory Rate 24 Blood Pressure 99/52 L 99/52 L Pulse Oximetry 100 100 04/25/18 21:00 04/25/18 22:00 04/25/18 23:00 Temperature 98.1 F Pulse Rate 56 L 58 L Respiratory Rate Blood Pressure 107/64 100/55 L Pulse Oximetry 04/26/18 00:00 04/26/18 02:00 04/26/18 03:00 Temperature 98.1 F 97.5 F L Pulse Rate 58 L 57 L Respiratory Rate Blood Pressure 100/55 L 100/52 L Pulse Oximetry 04/26/18 04:00 04/26/18 05:00 04/26/18 06:00 Temperature 97.3 F L 97.3 F L 97.3 F L Pulse Rate 71 Respiratory Rate Blood Pressure Pulse Oximetry 04/26/18 06:26 04/26/18 07:00 04/26/18 08:00 Temperature 97.5 F L 97.2 F L 96.4 F L Pulse Rate 71 63 Respiratory Rate 14 Blood Pressure 111/59 L Pulse Oximetry 100 04/26/18 08:15 04/26/18 08:23 04/26/18 08:42 Temperature 97.0 F L 96.8 F L Pulse Rate 62 96 H 96 H Respiratory Rate 20 18 18 Blood Pressure 127/60 114/67 Pulse Oximetry 95 100 94 L 04/26/18 09:00 04/26/18 10:00 Temperature 96.4 F L 96.4 F L Pulse Rate 101 H 86 Respiratory Rate 17 14 Blood Pressure 110/77 128/77 Pulse Oximetry 93 L 98 Intake & Output 04/25/18 04/26/18 04/26/18 18:59 06:59 18:59 Intake Total 2880 / 2880 1590 / 1590 1910 / 1910 Output Total 1000 / 1000 1960 / 1960 500 / 500 Balance 1880 / 1880 -370 / -370 1410 / 1410 Weight 99.3 kg Intake: IV 2400 / 2400 1110 / 1110 1110 / 1110 Neosynephrine Inj 40 MG In NS 1000 / 1000 Inj 496 ML @ 40 MCG/MIN 30 mls/ hr IV.CONT TITRATE PRN Rx#: [id number] KCl Inj 20 MEQ In LR 1000 mL 1010 / 1010 1010 / 1010 Inj 1,000 ML @ 125 mls/hr IV. CONT .Q8H5M [facility] Rx#:[id number] Alburx 5% Inj 500 ML @ 250 mls/ 1000 / 1000 hr IV.SIG Q6H [facility] Rx#:[id number] Maxipime Inj 2,000 MG In NS Inj 100 / 100 100 ML @ 200 mls/hr IV.SIG Q12H [facility] Rx#:[id number] KCl 40 mEq Premix Inj 40 meq In 100 / 100 100 ml @ 25 mls/hr IV.SIG Q4H [facility] Rx#:[id number] Flagyl 500 MG Inj 100 ML @ 100 200 / 200 100 / 100 100 / 100 mls/hr IV.SIG Q6H [facility] Rx#: [id number] Oral 480 / 480 480 / 480 Intake (Blood Product) Amt 0 / 0 800 / 800 Rbc As-3 Leukoreduced Unit 0 / 0 400 / 400 [id number] Rbc As-3 Leukoreduced Unit 400 / 400 [id number] Output: Urine 960 / 960 Urine Amount (Catheter) 1000 / 1000 1000 / 1000 500 / 500 Indwelling Urethral Catheter 1000 / 1000 1000 / 1000 500 / 500 Other: Date of Last Bowel Movement 04/25/18 04/25/18 04/26/18 # Bowel Movements 3 3 2 Result Diagrams: 04/26/18 05:00 04/26/18 07:35 Other Results: Microbiology 04/24/18 23:04 Catheterized Urine Urine Culture - Preliminary gram negative rods 04/24/18 20:35 Blood - Peripheral Aerobic Blood Culture - Preliminary gram positive cocci 04/24/18 20:35 Blood - Peripheral Anaerobic Blood Culture - Preliminary gram positive cocci 04/24/18 21:30 Blood - Peripheral Aerobic Blood Culture - Preliminary gram positive cocci 04/24/18 21:30 Blood - Peripheral Anaerobic Blood Culture - Preliminary gram positive cocci 04/25/18 07:15 Stool Stool Occult Blood ([facility]) - Final Hemoccult negative Imaging: Chest X-Ray 04/24/18 20:58 CONCLUSION: The right IJ line has its tip in the subclavian vein. No pneumothorax. Abdomen/Pelvis CT 04/25/18 00:00 CONCLUSION: 1. There are moderately distended air and fluid-filled loops of large bowel noted diffusely. 2. Body wall edema. 3. No focal fluid collections are identified to suggest abscess. Chest CTA 04/25/18 00:00 CONCLUSION: 1. The examination is positive for pulmonary embolus on the left. 2. Left thyroid nodule. 3. Small left pleural effusion. 4. Dilatation of the main pulmonary artery. Chest X-Ray 04/25/18 09:04 CONCLUSION: 1. Tip of the left subclavian central line low within the right atrium. No pneumothorax. 2. Right internal jugular vein central venous line unchanged. Abdomen X-Ray 04/26/18 07:00 CONCLUSION: Persistent colonic distention. Objective Remarks: GENERAL: 83-year-old female currently a mask in mild distress secondary to pain SKIN: Warm and dry. Well perfused. No rash. See musculoskeletal for deep tissue injury. Multiple signs of ecchymosis HEAD: Atraumatic. Normocephalic. EYES: Pupils equal and round. No scleral icterus. No injection or drainage. ENT: No nasal bleeding or discharge. Mucous membranes pink and moist. NECK: Trachea midline. No JVD. Right IJ has been removed without hematoma. Left subclavian is clean dry and intact. CARDIOVASCULAR: IRR. S1, S2 no S4 2/6 systolic murmur RESPIRATORY: No accessory muscle use. Clear to auscultation. Breath sounds equal bilaterally. GASTROINTESTINAL: Abdomen is tender to palpation bilateral lower quadrants especially. Hypoactive bowel sounds appreciated voluntary guarding. No rigidity. MUSCULOSKELETAL: Extremities positive bilateral upper and lower extremity edema. Left knee deep tissue injury. Bilateral femoral soft hematomas noted. Left hip 8 x 2 cm deep tissue injury NEUROLOGICAL: Awake and alert. Pleasantly confused. No obvious cranial nerve deficits. Motor grossly within normal limits. Five out of 5 muscle strength in the arms and legs. Assessment and Plan - Assessment and Plan Plan: Neuro/Psych: Acute encephalopathy secondary to severe sepsis Acute pain management CT brain on admission assessment revealed no acute intracranial findings Currently on morphine sulfate 2 mg IV every 2 hours as needed pain CV: Atrial fibrillation with rapid ventricular response History of essential hypertension Hyperlipidemia Severe sepsis Left bundle branch block Currently on phenylephrine drip at 110 mcg/min to maintain mean arterial pressure greater or equal to 65 CVP is 4 Receiving crystalloid and colloid resuscitation Initial troponin 0 0.07 Continue amiodarone per protocol currently 1 mg/min 2D echocardiogram 02/02 revealed EF 55-6%. Left atrial enlargement. Moderate MR. Holding home medication diltiazem 240 mg daily light of hypotension/vasopressor requirements. Resp: Acute respiratory failure secondary to left upper/lower extremity pulmonary embolism CT pulmonary angiogram 04/24 revealed left upper/lower lobe pulmonary embolus and. Received alteplase 100 mg over 2 hours 04/24. Currently in heparin drip. Venturi mask 35% titrate to maintain saturations greater than equal to 92% Incentive spirometry while awake Albuterol/ipratropium aerosols every 4 hours with albuterol aerosols every 2 hours as needed for dyspnea Chest x-ray in a.m. 04/26 GI: C. difficile with possible toxic megacolon History of dilated:/Fecal impaction Hypoalbuminemia Elevated total bilirubin Currently diet advance. Famotidine for GI prophylaxis Docusate sodium/senna 1 tablet twice daily for bowel regimen Currently in 6 doses of albumin 25% every 6 hours 6 per overnight production quality manager CT abdomen/pelvis revealed dilated large bowel. No signs of perforation. GI consultation : Wren catheter has been placed for accurate I's and O's in a critically ill patient Endo: Sliding scale insulin Accu-Cheks every 6 hours to maintain euglycemia TSH one-point and 7 Renal: Creatinine currently within normal limits Monitor urine output Accurate I's and O's Heme: Leukocytosis Normocytic anemia Elevated INR/PTT Currently heparin drip 800 units an hour. Monitor CBC daily. Follow trends. Fibrinogen in a.m. Transfusing 2 PRBCs today. Recheck at 1800 hrs. ID: Severe sepsis C. difficile UTI present prior to admission Currently on metronidazole 500 milligrams every 6 and vancomycin 250 milligrams by mouth 4 times daily. Her C. difficile C. difficile pending Blood cultures 04/24 no growth Cefepime for coverage FEN: Hypokalemia Hypomagnesia 80 mEq potassium chloride IV 1 now. Recheck at 1500 LR with 20 mill cons KCl 125 cc an hour will be discontinued MSK: Old L2/3 compression fractures L3 hemangioma Deep tissue injury left hip and knee Elevated BMI PT evaluate and treat Wound care nurse evaluate and treat Weight loss encouraged Access -Left subclavian CVL day #2 placed 04/25. Remove right IJ CVL day #2 placed 04/24 in ED Prophylaxis -GI -famotidine -DVT -SCD/heparin drip Critical Care: The total critical care time was 35 minutes. Time to perform other separately billable procedures was not included in the critical care time. Palliative care involved. At this point likely trending towards comfort cares with acute blood loss anemia/unable to stop heparinization due to acute pulmonary embolism with possible toxic megacolon severe sepsis.
[2018-04-26 12:35] LABS: Hematocrit 25.4 % (35.0-46.0); Hemoglobin 8.8 gm/dL (11.6-15.3)
[2018-04-26 12:46] LABS: INR 1.5 Ratio; Prothrombin Time 15.5 sec (9.8-11.6)
[2018-04-26 12:52] LABS: Activated Partial Thrombo Time 106.6 sec (24.3-30.1)
[2018-04-26] MEDS ORDERED: Vancomycin Inj 1,500 MG in Sodium Chlor 0.9% Inj 500 ML IV.SIG ONE (13:32)
[2018-04-26] MEDS ORDERED: Vancomycin Consult Pharmacy 1 EACH OTHER SCH (13:33)
--- NOTE | 2018-04-26 13:44 | P.PNID ---
Subjective Remarks: Patient is an 83-year-old female, came from the rehab facility, brought into the hospital for evaluation of altered mental status, hypotension, and low oxygen saturation. Patient used to live at home, and she was hospitalized in January and at that time she presented with sepsis. She was found to have a UTI, and she was discharged to a rehab facility. She was readmitted in March, and at that time she was found to have C. difficile colitis, and went back to the rehab facility. She came back this time for further evaluation of sepsis, hypotension and low-dose oxygen saturation. Patient currently is on a facemask. She is hypotensive, and on Rosalio-Synephrine. Her initial WBC was 40K, and now up to 48K. Lactic acid is normal. She had a low-grade temp on presentation. She is currently having diarrhea, and stool for C. difficile toxin is still pending. Her urinalysis did show evidence of UTI. She has good urine output, and she is still somewhat lethargic. Patient on Flagyl, oral vancomycin, and has received a dose of IV cefepime and IV vancomycin in the ED last night. Her chest x-ray is normal. CTA did show evidence of pulmonary embolism on the left side, and patient received TPA. CT of the abdomen and pelvis did not show any evidence of abscess, and there was no mention of any hydronephrosis. 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 Notes reviewed Temps ok Still on neosynephrine More awake Stool less BC all with MRSA UC with GNR, no ID yet C diff negative Antibiotics: Cefepime Flagyl PO Vanco IV vanco Lines: LSC TLC Past Medical History: C. difficile colitis UTI (urinary tract infection) Atrial fibrillation Encephalopathy due to infection Hyperlipemia Hypertension Sepsis H/O abdominal surgery Allergies/Adverse Reactions: Allergies No Known Allergies Allergy (Uncoded 04/17/18 13:51) none Objective Vital Signs 04/25/18 14:00 04/25/18 14:01 04/25/18 14:15 Temperature 94.8 F L Pulse Rate 60 60 51 L Respiratory Rate 17 16 14 Blood Pressure 100/49 L 91/53 L Pulse Oximetry 99 99 04/25/18 14:31 04/25/18 14:45 04/25/18 15:00 Temperature Pulse Rate 67 49 L 132 H Respiratory Rate 18 13 19 Blood Pressure 94/42 L 97/53 L 86/54 L Pulse Oximetry 99 95 75 L 04/25/18 15:16 04/25/18 15:17 04/25/18 15:30 Temperature Pulse Rate 54 L 50 L 52 L Respiratory Rate 19 20 13 Blood Pressure 105/57 L 119/64 Pulse Oximetry 81 L 100 100 04/25/18 15:46 04/25/18 16:00 04/25/18 17:00 Temperature 95 F L Pulse Rate 56 L 59 L 60 Respiratory Rate 18 19 18 Blood Pressure 125/60 123/55 L 110/53 L Pulse Oximetry 100 100 100 04/25/18 17:15 04/25/18 17:28 04/25/18 17:30 Temperature Pulse Rate 53 L 51 L 52 L Respiratory Rate 16 14 Blood Pressure 97/54 L 97/54 L 99/56 L Pulse Oximetry 100 99 04/25/18 17:45 04/25/18 18:00 04/25/18 19:00 Temperature 95.9 F L 96.6 F L Pulse Rate 49 L 55 L 75 Respiratory Rate 13 20 Blood Pressure 96/55 L 102/57 L 99/52 L Pulse Oximetry 100 100 04/25/18 20:00 04/25/18 20:35 04/25/18 21:00 Temperature 96.6 F L Pulse Rate 59 L 63 56 L Respiratory Rate 24 Blood Pressure 99/52 L Pulse Oximetry 100 100 04/25/18 22:00 04/25/18 23:00 04/26/18 00:00 Temperature 98.1 F 98.1 F Pulse Rate 58 L 58 L Respiratory Rate Blood Pressure 107/64 100/55 L 100/55 L Pulse Oximetry 04/26/18 02:00 04/26/18 03:00 04/26/18 04:00 Temperature 97.5 F L 97.3 F L Pulse Rate 57 L 71 Respiratory Rate Blood Pressure 100/52 L Pulse Oximetry 04/26/18 05:00 04/26/18 06:00 04/26/18 06:26 Temperature 97.3 F L 97.3 F L 97.5 F L Pulse Rate 71 Respiratory Rate Blood Pressure Pulse Oximetry 04/26/18 07:00 04/26/18 08:00 04/26/18 08:15 Temperature 97.2 F L 96.4 F L Pulse Rate 63 62 Respiratory Rate 14 20 Blood Pressure 111/59 L Pulse Oximetry 100 95 04/26/18 08:23 04/26/18 08:42 04/26/18 09:00 Temperature 97.0 F L 96.8 F L 96.4 F L Pulse Rate 96 H 96 H 101 H Respiratory Rate 18 18 17 Blood Pressure 127/60 114/67 110/77 Pulse Oximetry 100 94 L 93 L 04/26/18 10:00 04/26/18 11:00 04/26/18 12:00 Temperature 96.4 F L 96.8 F L 96.6 F L Pulse Rate 86 78 63 Respiratory Rate 14 19 16 Blood Pressure 128/77 128/81 135/91 H Pulse Oximetry 98 98 98 04/26/18 13:00 Temperature 96.8 F L Pulse Rate 85 Respiratory Rate 21 Blood Pressure 131/68 Pulse Oximetry 98 Intake & Output 04/25/18 04/26/18 04/26/18 18:59 06:59 18:59 Intake Total 2880 / 2880 1590 / 1590 2009 Output Total 1000 / 1000 1960 / 1960 500 / 500 Balance 1880 / 1880 -370 / -370 1510 / 1510 Weight 99.3 kg Intake: IV 2400 / 2400 1110 / 1110 1210 / 1210 Neosynephrine Inj 40 MG In NS 1000 / 1000 Inj 496 ML @ 40 MCG/MIN 30 mls/ hr IV.CONT TITRATE PRN Rx#: [id number] KCl Inj 20 MEQ In LR 1000 mL 1010 / 1010 1010 / 1010 Inj 1,000 ML @ 125 mls/hr IV. CONT .Q8H5M [facility] Rx#:[id number] Alburx 5% Inj 500 ML @ 250 mls/ 1000 / 1000 hr IV.SIG Q6H [facility] Rx#:[id number] Maxipime Inj 2,000 MG In NS Inj 100 / 100 100 ML @ 200 mls/hr IV.SIG Q12H [facility] Rx#:[id number] KCl 40 mEq Premix Inj 40 meq In 100 / 100 100 / 100 100 ml @ 25 mls/hr IV.SIG Q4H [facility] Rx#:[id number] Flagyl 500 MG Inj 100 ML @ 100 200 / 200 100 / 100 100 / 100 mls/hr IV.SIG Q6H [facility] Rx#: [id number] Oral 480 / 480 480 / 480 Intake (Blood Product) Amt 0 / 0 800 / 800 Rbc As-3 Leukoreduced Unit 0 / 0 400 / 400 [id number] Rbc As-3 Leukoreduced Unit 400 / 400 [id number] Output: Urine 960 / 960 Urine Amount (Catheter) 1000 / 1000 1000 / 1000 500 / 500 Indwelling Urethral Catheter 1000 / 1000 1000 / 1000 500 / 500 Other: Date of Last Bowel Movement 04/25/18 04/25/18 04/26/18 # Bowel Movements 3 3 2 04/24/18 20:35 Blood - Peripheral Aerobic Blood Culture - Preliminary S. aureus MRSA gram negative rods 04/24/18 20:35 Blood - Peripheral Anaerobic Blood Culture - Preliminary S. aureus MRSA 04/24/18 21:30 Blood - Peripheral Aerobic Blood Culture - Preliminary S. aureus MRSA 04/24/18 21:30 Blood - Peripheral Anaerobic Blood Culture - Preliminary S. aureus MRSA 04/24/18 23:04 Catheterized Urine Urine Culture - Preliminary gram negative rods 04/25/18 07:15 Stool Stool Occult Blood ([facility]) - Final Hemoccult negative Lab - Hematology Results 04/24/18 04/25/18 04/26/18 21:28 06:12 04:15 WBC 40.3 H 48.5 H 22.7 H D RBC 4.44 3.31 L 1.76 L Hgb 12.7 9.5 L D 4.9 L* D Hct 38.0 28.6 L 15.1 L* MCV 85.6 86.3 85.6 MCH 28.6 28.6 28.1 MCHC 33.4 33.1 32.9 RDW 18.4 H 18.4 H 18.9 H Plt Count 215 150 D 115 L MPV 9.5 8.3 8.3 Prelim Diff (Auto) Slide review pending Manual diff required Neut % (Auto) 95.2 H Lymph % (Auto) 2.5 L [place] % (Auto) 1.4 Eos % (Auto) 0.6 Baso % (Auto) 0.3 Neut # (Auto) 38.4 H Lymph # (Auto) 1.0 [place] # (Auto) 0.5 Eos # (Auto) 0.2 Baso # (Auto) 0.1 WBC Differential Manual diff final Manual diff final Diff Scan Seg Neuts % (Manual) 95 H 83 H Band Neuts % (Manual) 15 H Lymphocytes % (Manual) 1 L Monocytes % (Manual) 4 1 Eosinophils % (Manual) 1 Abs Neuts (Manual) 38.3 H 47.5 H Differential Comment . . Toxic Granulation 1+ H Toxic Vacuolation Present H Present H Dohle Bodies Platelet Estimate Normal Platelet Morphology Normal Ovalocytes Keratocytes 04/26/18 04/26/18 05:00 12:16 WBC 22.3 H RBC 1.77 L Hgb 4.9 L* 8.8 L D Hct 15.3 L* 25.4 L MCV 86.5 MCH 27.9 MCHC 32.2 RDW 19.1 H Plt Count 121 L MPV 8.5 Prelim Diff (Auto) Slide review pending Neut % (Auto) 88.5 H Lymph % (Auto) 7.8 L [place] % (Auto) 3.5 Eos % (Auto) 0.1 Baso % (Auto) 0.1 Neut # (Auto) 19.8 H Lymph # (Auto) 1.7 [place] # (Auto) 0.8 Eos # (Auto) 0.0 Baso # (Auto) 0.0 WBC Differential . Diff Scan Auto diff confirmed Seg Neuts % (Manual) Band Neuts % (Manual) Lymphocytes % (Manual) Monocytes % (Manual) Eosinophils % (Manual) Abs Neuts (Manual) Differential Comment . Toxic Granulation Toxic Vacuolation Dohle Bodies Present H Platelet Estimate Low L Platelet Morphology Normal Ovalocytes 1+ H Keratocytes Occ H Lab - Chemistry Results 04/24/18 04/24/18 04/25/18 21:28 21:28 03:24 Sodium 129 L Potassium 4.4 Chloride 99 Carbon Dioxide 16.9 L Anion Gap 13 BUN 31 H Creatinine 0.76 Estimated GFR 73 L POC Glucose 117 H Random Glucose 104 Lactic Acid 1.5 Calcium 7.2 L* Prot Corrected Calcium 8.3 L Phosphorus Magnesium 1.7 Total Bilirubin 0.8 AST 57 H ALT 23 Alkaline Phosphatase 180 H Total Creatine Kinase 125 CK-MB (CK-2) 1.0 Troponin I 0.07 H Total Protein 5.0 L Albumin 1.4 L Lipase 27 L TSH 04/25/18 04/25/18 04/25/18 06:55 06:55 08:33 Sodium 138 Potassium 2.2 L* D 2.1 L* Chloride 106 Carbon Dioxide 18.5 L Anion Gap 14 BUN 28 H Creatinine 0.51 Estimated GFR Greater than 89 POC Glucose Random Glucose 137 H Lactic Acid 2.0 Calcium 7.6 L Prot Corrected Calcium Phosphorus 2.8 Magnesium 1.5 Total Bilirubin 1.3 H AST 20 ALT 13 Alkaline Phosphatase 109 Total Creatine Kinase CK-MB (CK-2) Troponin I Total Protein 3.7 L D Albumin 1.7 L Lipase TSH 04/25/18 04/25/18 04/26/18 14:30 14:30 04:15 Sodium 138 Potassium 2.3 L* Chloride 108 H Carbon Dioxide 17.2 L Anion Gap 13 BUN 24 H Creatinine 0.67 Estimated GFR 84 L POC Glucose Random Glucose 208 H Lactic Acid 2.1 H Calcium 6.9 L* Prot Corrected Calcium 8.6 Phosphorus 2.2 L Magnesium 1.5 Total Bilirubin AST ALT Alkaline Phosphatase Total Creatine Kinase CK-MB (CK-2) Troponin I Total Protein 4.0 L Albumin Lipase TSH 1.220 04/26/18 04/26/18 04:20 07:35 Sodium 138 Potassium 2.2 L* Chloride 108 H Carbon Dioxide 18.7 L Anion Gap 11 BUN 22 H Creatinine 0.46 L Estimated GFR Greater than 89 POC Glucose Random Glucose 135 H Lactic Acid 1.1 Calcium 7.1 L* Prot Corrected Calcium 8.9 Phosphorus Magnesium Total Bilirubin 1.0 AST 18 ALT 13 Alkaline Phosphatase 74 Total Creatine Kinase CK-MB (CK-2) Troponin I Total Protein 4.0 L Albumin 2.5 L D Lipase TSH Imaging: ITS Impressions Abdomen/Pelvis CT 04/25/18 00:00 CONCLUSION: 1. There are moderately distended air and fluid-filled loops of large bowel noted diffusely. 2. Body wall edema. 3. No focal fluid collections are identified to suggest abscess. Chest CTA 04/25/18 00:00 CONCLUSION: 1. The examination is positive for pulmonary embolus on the left. 2. Left thyroid nodule. 3. Small left pleural effusion. 4. Dilatation of the main pulmonary artery. Chest X-Ray 04/25/18 09:04 CONCLUSION: 1. Tip of the left subclavian central line low within the right atrium. No pneumothorax. 2. Right internal jugular vein central venous line unchanged. Abdomen X-Ray 08/09/18 07:00 CONCLUSION: Persistent colonic distention. Physical Exam: GENERAL: awake, amnd responding, on nasal O2, not in distress SKIN: Cool and dry. Skin pale, has mottling on both feet, hands cool. No generalized rash HEAD: Atraumatic. Normocephalic. No temporal wasting, or tenderness. EYES: Pale conjunctiva. No petechia or hemorrhage. Pupils equal, round and reactive to light. Extraocular movements full and intact. No scleral icterus. No injection or drainage. EARS, NOSE AND THROAT: Nose without bleeding or purulent nasal discharge. Dry oral mucosa. NECK: Trachea midline. Supple and not tender, no meningeal signs. No nuchal rigidity. CARDIOVASCULAR: Regular rate and rhythm. No murmurs, rubs or gallops heard RESPIRATORY: Clear to auscultation. Breath sounds equal bilaterally. No rales , wheezing or rhonchi ABDOMEN: Soft, non-tender, nondistended. Bowel sounds present and hypoactive. No guarding. No rebound. No organomegaly. EXTREMITIES: No clubbing. Has mottling both feet, has bilateral pitting edema. There is an open wound medial L knee that is about 1 inch diameter with some slough, no periwound erythema, has some serous drainage. Cool extremities. Oozing serosanguineous fluid for 2 venipunctures sites both groin , more drainage on R groin NEUROLOGICAL: Awake and following PSYCHIATRIC: Unable to assess : Wren in place with some sediment She is incontinent of liquid stool. 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 UTI, GNR Diarrhea, C difficile negative Pulmonary embolism L, S/P TPA Respiratory failure due to PE Recommendation Continue IV Flagyl Stop PO vanco IV Vanco IV cefepime for GNR coverage Follow C/S and adjust Abx Repeat Palliative medicine following - family to decide on goals of Rx If aggressive care requested, will purse endocarditis work-up Critically ill with persistent hypotension Monitor progress D/W RN
[2018-04-26] MEDS: Phenylephrine Inj 40 MG in Sodium Chlor 0.9% Inj 496 ML IV.CONT PRN (17:35)
[2018-04-26 22:05] LABS: Magnesium 1.3 mg/dL (1.5-2.5); Phosphorus 1.5 mg/dL (2.5-4.9)
[2018-04-26 22:23] LABS: Potassium 2.3 meq/L (3.5-5.1)
[2018-04-26] MEDS: Mag Sulf 1 gm/100 ml Premix 100 ML IV.SIG SCH (23:47)
[2018-04-27] MEDS: Mag Sulf 1 gm/100 ml Premix 100 ML IV.SIG SCH (01:36)
[2018-04-27] MEDS: Potassium Chlor 40 mEq Premix 40 MEQ/100 ML PIGGYBACK IV.SIG SCH ×2 (02:09→05:53)
[2018-04-27] MEDS: Chlorhexidine Gluconate 2% 1 Pack (2 Cloths) TOPICAL SCH (03:37)
[2018-04-27] MEDS: Morphine Inj 4 MG/ML Vial IV.PUSH PRN ×3 (03:42→22:14)
[2018-04-27 04:55] LABS: Eos % (Auto) 0.1 % (0.0-4.0); Hematocrit 23.9 % (35.0-46.0); Hemoglobin 8.5 gm/dL (11.6-15.3); Lymph # (Auto) 1.7 th/mm3 (1.0-4.8); Lymph % (Auto) 10.5 % (9.0-44.0); Mean Corpuscular HGB Conc 35.7 % (32.0-36.0); Mean Corpuscular Hemoglobin 29.8 pg (27.0-34.0); Mean Corpuscular Volume 83.5 fL (80.0-100.0); Mean Platelet Volume 8.9 fL (7.0-11.0); Mono # (Auto) 0.8 th/mm3 (0.0-0.9); Mono % (Auto) 4.5 % (0.0-8.0); Neut # (Auto) 14.1 th/mm3 (1.8-7.7); Neut % (Auto) 84.9 % (16.0-70.0); Platelet Count 110 th/mm3 (150-450); Red Blood Count 2.86 mil/mm3 (4.00-5.30); Red Cell Distribution Width 16.9 % (11.6-17.2); White Blood Count 16.6 th/mm3 (4.0-11.0)
[2018-04-27 05:14] LABS: Alanine Aminotransferase 15 U/L (10-53); Albumin 2.2 g/dL (3.4-5.0); Alkaline Phosphatase 80 U/L (45-117); Anion Gap 12 meq/L (5-15); Aspartate Aminotransferase 18 U/L (15-37); Blood Urea Nitrogen 20 mg/dL (7-18); Calcium 6.9 mg/dL (8.5-10.1); Chloride 114 meq/L (98-107); Glomerular Filtration Rate Greater Than 89 mL/min (>89); Glucose,Random 122 mg/dL (74-106); Magnesium 1.8 mg/dL (1.5-2.5); Phosphorus 1.6 mg/dL (2.5-4.9); Sodium 142 meq/L (136-145); Total Protein 4.1 g/dL (6.4-8.2)
[2018-04-27 05:19] LABS: Potassium 2.8 meq/L (3.5-5.1)
[2018-04-27] MEDS: Vancomycin Inj 1,300 MG in Sodium Chlor 0.9% Inj 500 ML IV.SIG SCH ×2 (06:00→16:44)
[2018-04-27] MEDS: Mupirocin 2% Nasal Oint Topical Syringe EACH NARE SCH ×2 (08:47→20:30)
[2018-04-27] MEDS: Famotidine PF Inj 20 MG/2 ML Vial IV.PUSH SCH ×2 (08:47→20:31)
[2018-04-27] MEDS: Senna/Docusate Sodium 8.6/50 MG Tablet PO SCH ×2 (08:47→20:30)
[2018-04-27] MEDS: Heparin Drip 25,000 UNIT/250 ML BAG IV.CONT PRN (08:53)
[2018-04-27] MEDS: Phenylephrine Inj 40 MG in Sodium Chlor 0.9% Inj 496 ML IV.CONT PRN (08:54)
--- NOTE | 2018-04-27 10:33 | P.PNID ---
Subjective Remarks: Patient is an 83-year-old female, came from the rehab facility, brought into the hospital for evaluation of altered mental status, hypotension, and low oxygen saturation. Patient used to live at home, and she was hospitalized in January and at that time she presented with sepsis. She was found to have a UTI, and she was discharged to a rehab facility. She was readmitted in March, and at that time she was found to have C. difficile colitis, and went back to the rehab facility. She came back this time for further evaluation of sepsis, hypotension and low-dose oxygen saturation. Patient currently is on a facemask. She is hypotensive, and on Rosalio-Synephrine. Her initial WBC was 40K, and now up to 48K. Lactic acid is normal. She had a low-grade temp on presentation. She is currently having diarrhea, and stool for C. difficile toxin is still pending. Her urinalysis did show evidence of UTI. She has good urine output, and she is still somewhat lethargic. Patient on Flagyl, oral vancomycin, and has received a dose of IV cefepime and IV vancomycin in the ED last night. Her chest x-ray is normal. CTA did show evidence of pulmonary embolism on the left side, and patient received TPA. CT of the abdomen and pelvis did not show any evidence of abscess, and there was no mention of any hydronephrosis. 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 difficile colitis UTI (urinary tract infection) Atrial fibrillation Encephalopathy due to infection Hyperlipemia Hypertension Sepsis H/O abdominal surgery Allergies/Adverse Reactions: Allergies No Known Allergies Allergy (Uncoded 04/17/18 13:51) none Objective Vital Signs 04/26/18 11:00 04/26/18 12:00 04/26/18 13:00 Temperature 96.8 F L 96.6 F L 96.8 F L Pulse Rate 78 63 85 Respiratory Rate 19 16 21 Blood Pressure 128/81 135/91 H 131/68 Pulse Oximetry 98 98 98 08/09/18 14:00 04/26/18 15:00 04/26/18 16:00 Temperature 97.0 F L 97.0 F L 97.2 F L Pulse Rate 83 91 H 79 Respiratory Rate 20 17 13 Blood Pressure 117/56 L 122/57 L 116/67 Pulse Oximetry 98 100 100 04/26/18 17:00 04/26/18 18:00 04/26/18 19:00 Temperature 97.0 F L 96.8 F L 97.5 F L Pulse Rate 81 83 80 Respiratory Rate 14 19 Blood Pressure 128/58 L 120/58 L 103/52 L Pulse Oximetry 100 95 100 04/26/18 20:00 04/26/18 21:00 04/26/18 22:00 Temperature 97.5 F L 98.1 F Pulse Rate 80 80 71 Respiratory Rate 22 22 22 Blood Pressure 103/52 L 112/54 L 112/76 Pulse Oximetry 100 100 100 04/26/18 23:00 04/27/18 00:00 04/27/18 01:00 Temperature 99.1 F Pulse Rate 88 96 H 80 Respiratory Rate 22 20 20 Blood Pressure 103/56 L 98/57 L 98/57 L Pulse Oximetry 100 100 100 04/27/18 02:00 04/27/18 03:00 04/27/18 04:00 Temperature Pulse Rate 71 109 H 106 H Respiratory Rate 22 20 22 Blood Pressure 104/50 L 104/50 L 108/56 L Pulse Oximetry 100 100 100 04/27/18 05:00 04/27/18 06:00 04/27/18 08:09 Temperature Pulse Rate 105 H 103 H 79 Respiratory Rate 22 22 20 Blood Pressure 95/71 L 85/49 L Pulse Oximetry 100 100 100 Intake & Output 04/26/18 04/27/18 04/27/18 18:59 06:59 18:59 Intake Total 3348.6 / 3348.6 840 / 840 1299.4 / 1299.4 Output Total 1700 / 1700 450 / 450 Balance 1648.6 / 1648.6 390 / 390 1299.4 / 1299.4 Weight 111 kg Intake: IV 2488.6 / 2488.6 600 / 600 1299.4 / 1299.4 Heparin/D5W 25,000 U/250 mL 25, 250 / 250 000 unit In 250 ml @ Per Protocol IV.CONT TITRATE PRN Rx #:[id number] Neosynephrine Inj 40 MG In NS 563.6 / 563.6 436.4 / 436.4 Inj 496 ML @ 40 MCG/MIN 30 mls/ hr IV.CONT TITRATE PRN Rx#: [id number] KCl Inj 20 MEQ In LR 1000 mL 1010 / 1010 Inj 1,000 ML @ 125 mls/hr IV. CONT .Q8H5M [facility] Rx#:[id number] Maxipime Inj 2,000 MG In NS Inj 100 / 100 100 / 100 100 ML @ 200 mls/hr IV.SIG Q12H [facility] Rx#:[id number] Magnesium Sulfate 1 gm/D5W 100 100 / 100 ml Premix 100 ML @ 100 mls/hr IV.SIG Q1H [facility] Rx#:[id number] KCl 40 mEq Premix Inj 40 meq In 100 / 100 200 / 200 100 ml @ 25 mls/hr IV.SIG Q4H [facility] Rx#:[id number] Vancomycin Inj 1,300 MG In NS 515 / 515 513 / 513 Inj 500 ML @ 250 mls/hr IV.SIG Q12H [facility] Rx#:[id number] Flagyl 500 MG Inj 100 ML @ 100 200 / 200 200 / 200 100 / 100 mls/hr IV.SIG Q6H [facility] Rx#: [id number] Oral 60 / 60 240 / 240 Intake (Blood Product) Amt 800 / 800 Rbc As-3 Leukoreduced Unit 400 / 400 [id number] Rbc As-3 Leukoreduced Unit 400 / 400 [id number] Output: Urine Amount (Catheter) 1700 / 1700 450 / 450 Indwelling Urethral Catheter 1700 / 1700 450 / 450 Other: Date of Last Bowel Movement 04/26/18 04/27/18 # Bowel Movements 3 1 04/24/18 20:35 Blood - Peripheral Aerobic Blood Culture - Preliminary S. aureus MRSA gram negative rods 04/24/18 20:35 Blood - Peripheral Anaerobic Blood Culture - Preliminary S. aureus MRSA 04/24/18 21:30 Blood - Peripheral Aerobic Blood Culture - Preliminary S. aureus MRSA 04/24/18 21:30 Blood - Peripheral Anaerobic Blood Culture - Preliminary S. aureus MRSA 04/24/18 23:04 Catheterized Urine Urine Culture - Final Klebsiella pneumoniae 04/26/18 15:07 Blood - Peripheral Aerobic Blood Culture - Pending 04/26/18 15:07 Blood - Peripheral Anaerobic Blood Culture - Pending 04/26/18 15:42 Blood - Peripheral Aerobic Blood Culture - Pending 04/26/18 15:42 Blood - Peripheral Anaerobic Blood Culture - Pending 04/25/18 07:15 Stool Stool Occult Blood ([facility]) - Final Hemoccult negative Lab - Hematology Results 04/26/18 04/26/18 04/26/18 04:15 05:00 12:16 WBC 22.7 H D 22.3 H RBC 1.76 L 1.77 L Hgb 4.9 L* D 4.9 L* 8.8 L D Hct 15.1 L* 15.3 L* 25.4 L MCV 85.6 86.5 MCH 28.1 27.9 MCHC 32.9 32.2 RDW 18.9 H 19.1 H Plt Count 115 L 121 L MPV 8.3 8.5 Prelim Diff (Auto) Slide review pending Neut % (Auto) 88.5 H Lymph % (Auto) 7.8 L [place] % (Auto) 3.5 Eos % (Auto) 0.1 Baso % (Auto) 0.1 Neut # (Auto) 19.8 H Lymph # (Auto) 1.7 [place] # (Auto) 0.8 Eos # (Auto) 0.0 Baso # (Auto) 0.0 WBC Differential . Diff Scan Auto diff confirmed Differential Comment . Dohle Bodies Present H Platelet Estimate Low L Platelet Morphology Normal Ovalocytes 1+ H Keratocytes Occ H 04/26/18 04/27/18 21:27 04:30 WBC 16.6 H RBC 2.86 L Hgb 8.3 L 8.5 L Hct 23.9 L MCV 83.5 MCH 29.8 MCHC 35.7 RDW 16.9 Plt Count 110 L MPV 8.9 Prelim Diff (Auto) Neut % (Auto) 84.9 H Lymph % (Auto) 10.5 [place] % (Auto) 4.5 Eos % (Auto) 0.1 Baso % (Auto) 0.0 Neut # (Auto) 14.1 H Lymph # (Auto) 1.7 [place] # (Auto) 0.8 Eos # (Auto) 0.0 Baso # (Auto) 0.0 WBC Differential . Diff Scan Differential Comment Auto diff final Dohle Bodies Platelet Estimate Platelet Morphology Ovalocytes Keratocytes Lab - Chemistry Results 04/25/18 04/25/18 04/26/18 14:30 14:30 04:15 Sodium 138 Potassium 2.3 L* Chloride 108 H Carbon Dioxide 17.2 L Anion Gap 13 BUN 24 H Creatinine 0.67 Estimated GFR 84 L POC Glucose Random Glucose 208 H Lactic Acid 2.1 H Calcium 6.9 L* Prot Corrected Calcium 8.6 Phosphorus 2.2 L Magnesium 1.5 Total Bilirubin AST ALT Alkaline Phosphatase Total Protein 4.0 L Albumin TSH 1.220 04/26/18 04/26/18 04/26/18 04:20 07:35 21:17 Sodium 138 Potassium 2.2 L* 2.3 L* Chloride 108 H Carbon Dioxide 18.7 L Anion Gap 11 BUN 22 H Creatinine 0.46 L Estimated GFR Greater than 89 POC Glucose Random Glucose 135 H Lactic Acid 1.1 Calcium 7.1 L* Prot Corrected Calcium 8.9 Phosphorus 1.5 L Magnesium 1.3 L Total Bilirubin 1.0 AST 18 ALT 13 Alkaline Phosphatase 74 Total Protein 4.0 L Albumin 2.5 L D TSH 04/27/18 04/27/18 04/27/18 04:30 04:30 06:32 Sodium 142 Potassium 2.8 L* Chloride 114 H Carbon Dioxide 16.0 L Anion Gap 12 BUN 20 H Creatinine 0.49 L Estimated GFR Greater than 89 POC Glucose 132 H Random Glucose 122 H Lactic Acid 1.3 Calcium 6.9 L* Prot Corrected Calcium 8.6 Phosphorus 1.6 L Magnesium 1.8 Total Bilirubin 1.3 H AST 18 ALT 15 Alkaline Phosphatase 80 Total Protein 4.1 L Albumin 2.2 L TSH Imaging: ITS Impressions Abdomen/Pelvis CT 04/25/18 00:00 CONCLUSION: 1. There are moderately distended air and fluid-filled loops of large bowel noted diffusely. 2. Body wall edema. 3. No focal fluid collections are identified to suggest abscess. Chest CTA 04/25/18 00:00 CONCLUSION: 1. The examination is positive for pulmonary embolus on the left. 2. Left thyroid nodule. 3. Small left pleural effusion. 4. Dilatation of the main pulmonary artery. Chest X-Ray 04/25/18 09:04 CONCLUSION: 1. Tip of the left subclavian central line low within the right atrium. No pneumothorax. 2. Right internal jugular vein central venous line unchanged. Abdomen X-Ray 04/26/18 07:00 CONCLUSION: Persistent colonic distention. Physical Exam: GENERAL: awake, and responding, on nasal O2, not in distress SKIN: Cool and dry. Skin pale, has mottling on both feet, hands cool. No generalized rash HEAD: Atraumatic. Normocephalic. No temporal wasting, or tenderness. EYES: Pale conjunctiva. No petechia or hemorrhage. Pupils equal, round and reactive to light. Extraocular movements full and intact. No scleral icterus. No injection or drainage. EARS, NOSE AND THROAT: Nose without bleeding or purulent nasal discharge. Dry oral mucosa. NECK: Trachea midline. Supple and not tender, no meningeal signs. No nuchal rigidity. CARDIOVASCULAR: Regular rate and rhythm. No murmurs, rubs or gallops heard RESPIRATORY: Clear to auscultation. Breath sounds equal bilaterally. No rales , wheezing or rhonchi ABDOMEN: Soft, non-tender, nondistended. Bowel sounds present and hypoactive. No guarding. No rebound. No organomegaly. EXTREMITIES: No clubbing. Has mottling both feet, has bilateral pitting edema. There is an open wound medial L knee that is about 1 inch diameter with some slough, no periwound erythema, has some serous drainage. Cool extremities. Oozing serosanguineous fluid for 2 venipunctures sites both groin , more drainage on R groin NEUROLOGICAL: Awake and following PSYCHIATRIC: Unable to assess : Wren in place with some sediment She is incontinent of liquid stool. 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 UTI, GNR Diarrhea, C difficile negative Pulmonary embolism L, S/P TPA Respiratory failure due to PE Recommendation Continue IV Flagyl Continue IV Vanco Continue IV cefepime for GNR coverage Follow C/S and adjust Abx Echo Palliative medicine following - family meeting today to decide on goals of Rx Critically ill with persistent hypotension Monitor progress D/W RN
--- NOTE | 2018-04-27 10:44 | P.PNCC ---
Subjective Subjective Remarks/Hospital Course: 83-year-old female presents from rehab facility after patient found to have altered mentation decreased blood pressure and O2 saturation of 53% on room air. Patient was just released from the hospital today after hospitalization for urosepsis, hyperkalemia and Clostridium difficile colitis. Patient was found to be hypothermic reportedly according to rehab nursing notes with a temperature of 93F upon her arrival to the nursing facility at 3 PM. Patient was noted by fire department to have room air O2 saturation of 53% as well and was placed on supplemental oxygen IV access was not able to be obtained EMS transported patient with decreased level of consciousness blood sugar 153 hypotensive with systolic pressure of 80 with peripheral cyanosis and decreased mentation. Upon patient arrival she is awake complaining of pain and asking for help O2 saturation 99% on partial rebreather mask. Patient has history of atrial fibrillation with left bundle branch block. The CT of the chest shows positive study for pulmonary embolism with a dilation of the main pulmonary artery. 04/25: Afebrile. Remains on phenylephrine drip at 110 mcg/min and heparin drip at 800 units an hour. On Venturi mask at 30% satting 100%. Abdomen remains tender. Decentralized place secondary to right IJ currently at 8 cm. with multiple vasopressor medications in use. Subjective 04/26: Afebrile. Hemoglobin down to 5 this a.m. Currently being transfused 2 PRBCs. Continues with bruising bilateral femoral regions from attempted femoral central line placement in ED. Currently with a left subclavian CVL without signs of bleeding. Remains on telemetry but 110 mcg/min. On diet 04/27: Received morphine earlier for pain. On supplemental O2. Heparin off due to elevated PTT. Objective Vital Signs / I&O: Vital Signs 04/26/18 11:00 04/26/18 12:00 04/26/18 13:00 Temperature 96.8 F L 96.6 F L 96.8 F L Pulse Rate 78 63 85 Respiratory Rate 19 16 21 Blood Pressure 128/81 135/91 H 131/68 Pulse Oximetry 98 98 98 04/26/18 14:00 04/26/18 15:00 04/26/18 16:00 Temperature 97.0 F L 97.0 F L 97.2 F L Pulse Rate 83 91 H 79 Respiratory Rate 20 17 13 Blood Pressure 117/56 L 122/57 L 116/67 Pulse Oximetry 98 100 100 04/26/18 17:00 04/26/18 18:00 04/26/18 19:00 Temperature 97.0 F L 96.8 F L 97.5 F L Pulse Rate 81 83 80 Respiratory Rate 14 19 Blood Pressure 128/58 L 120/58 L 103/52 L Pulse Oximetry 100 95 100 04/26/18 20:00 04/26/18 21:00 04/26/18 22:00 Temperature 97.5 F L 98.1 F Pulse Rate 80 80 71 Respiratory Rate 22 22 22 Blood Pressure 103/52 L 112/54 L 112/76 Pulse Oximetry 100 100 100 04/26/18 23:00 04/27/18 00:00 04/27/18 01:00 Temperature 99.1 F Pulse Rate 88 96 H 80 Respiratory Rate 22 20 20 Blood Pressure 103/56 L 98/57 L 98/57 L Pulse Oximetry 100 100 100 04/27/18 02:00 04/27/18 03:00 04/27/18 04:00 Temperature Pulse Rate 71 109 H 106 H Respiratory Rate 22 20 22 Blood Pressure 104/50 L 104/50 L 108/56 L Pulse Oximetry 100 100 100 04/27/18 05:00 04/27/18 06:00 04/27/18 08:09 Temperature Pulse Rate 105 H 103 H 79 Respiratory Rate 22 22 20 Blood Pressure 95/71 L 85/49 L Pulse Oximetry 100 100 100 Intake & Output 04/26/18 04/27/18 04/27/18 18:59 06:59 18:59 Intake Total 3348.6 / 3348.6 840 / 840 1299.4 / 1299.4 Output Total 1700 / 1700 450 / 450 Balance 1648.6 / 1648.6 390 / 390 1299.4 / 1299.4 Weight 111 kg Intake: IV 2488.6 / 2488.6 600 / 600 1299.4 / 1299.4 Heparin/D5W 25,000 U/250 mL 25, 250 / 250 000 unit In 250 ml @ Per Protocol IV.CONT TITRATE PRN Rx #:[id number] Neosynephrine Inj 40 MG In NS 563.6 / 563.6 436.4 / 436.4 Inj 496 ML @ 40 MCG/MIN 30 mls/ hr IV.CONT TITRATE PRN Rx#: [id number] KCl Inj 20 MEQ In LR 1000 mL 1010 / 1010 Inj 1,000 ML @ 125 mls/hr IV. CONT .Q8H5M AMELIE Rx#:[id number] Maxipime Inj 2,000 MG In NS Inj 100 / 100 100 / 100 100 ML @ 200 mls/hr IV.SIG Q12H AMELIE Rx#:[id number] Magnesium Sulfate 1 gm/D5W 100 100 / 100 ml Premix 100 ML @ 100 mls/hr IV.SIG Q1H AMELIE Rx#:[id number] KCl 40 mEq Premix Inj 40 meq In 100 / 100 200 / 200 100 ml @ 25 mls/hr IV.SIG Q4H AMELIE Rx#:[id number] Vancomycin Inj 1,300 MG In NS 515 / 515 513 / 513 Inj 500 ML @ 250 mls/hr IV.SIG Q12H AMELIE Rx#:[id number] Flagyl 500 MG Inj 100 ML @ 100 200 / 200 200 / 200 100 / 100 mls/hr IV.SIG Q6H AMELIE Rx#: [id number] Oral 60 / 60 240 / 240 Intake (Blood Product) Amt 800 / 800 Rbc As-3 Leukoreduced Unit 400 / 400 [id number] Rbc As-3 Leukoreduced Unit 400 / 400 [id number] Output: Urine Amount (Catheter) 1700 / 1700 450 / 450 Indwelling Urethral Catheter 1700 / 1700 450 / 450 Other: Date of Last Bowel Movement 04/26/18 04/27/18 # Bowel Movements 3 1 Result Diagrams: 04/27/18 04:30 04/27/18 04:30 Objective Remarks: GENERAL: 83-year-old female currently a mask in mild distress secondary to pain SKIN: Warm and dry. Well perfused. No rash. See musculoskeletal for deep tissue injury. Multiple signs of ecchymosis HEAD: Atraumatic. Normocephalic. EYES: Pupils equal and round. No scleral icterus. No injection or drainage. ENT: No nasal bleeding or discharge. Mucous membranes pink and moist. NECK: Trachea midline. No JVD. Right IJ has been removed without hematoma. Left subclavian is clean dry and intact. CARDIOVASCULAR: IRR. S1, S2 no S4 2/6 systolic murmur RESPIRATORY: No accessory muscle use. Clear to auscultation. Breath sounds equal bilaterally. GASTROINTESTINAL: Abdomen is tender to palpation bilateral lower quadrants especially. Hypoactive bowel sounds appreciated voluntary guarding. No rigidity. MUSCULOSKELETAL: Extremities positive bilateral upper and lower extremity edema. Left knee deep tissue injury. Bilateral femoral soft hematomas noted. Left hip 8 x 2 cm deep tissue injury NEUROLOGICAL: Drowsy, easily arousable,. Pleasantly confused. No obvious cranial nerve deficits. Motor grossly within normal limits. Five out of 5 muscle strength in the arms and legs. Assessment and Plan - Assessment and Plan Plan: Neuro/Psych: Acute encephalopathy secondary to severe sepsis Acute pain management CT brain on admission assessment revealed no acute intracranial findings Currently on morphine sulfate 2 mg IV every 2 hours as needed pain CV: Atrial fibrillation with rapid ventricular response History of essential hypertension Hyperlipidemia Severe sepsis Left bundle branch block Currently on phenylephrine drip at 110 mcg/min to maintain mean arterial pressure greater or equal to 65 CVP is 4 Receiving crystalloid and colloid resuscitation Initial troponin 0 0.07 Continue amiodarone per protocol currently 1 mg/min 2D echocardiogram 02/02 revealed EF 55-6%. Left atrial enlargement. Moderate MR. Holding home medication diltiazem 240 mg daily light of hypotension/vasopressor requirements. Resp: Acute respiratory failure secondary to left upper/lower extremity pulmonary embolism CT pulmonary angiogram 04/24 revealed left upper/lower lobe pulmonary embolus and. Received alteplase 100 mg over 2 hours 04/24. Currently in heparin drip. Venturi mask 35% titrate to maintain saturations greater than equal to 92% Incentive spirometry while awake Albuterol/ipratropium aerosols every 4 hours with albuterol aerosols every 2 hours as needed for dyspnea Chest x-ray in a.m. 04/26 GI: C. difficile with possible toxic megacolon History of dilated:/Fecal impaction Hypoalbuminemia Elevated total bilirubin Currently diet advance. Famotidine for GI prophylaxis Docusate sodium/senna 1 tablet twice daily for bowel regimen Currently in 6 doses of albumin 25% every 6 hours 6 per overnight cancer registrar CT abdomen/pelvis revealed dilated large bowel. No signs of perforation. GI consultation : Wren catheter has been placed for accurate I's and O's in a critically ill patient Endo: Sliding scale insulin Accu-Cheks every 6 hours to maintain euglycemia TSH one-point and 7 Renal: Creatinine currently within normal limits Monitor urine output Accurate I's and O's Heme: Leukocytosis Normocytic anemia Elevated INR/PTT Currently heparin drip 800 units an hour. Monitor CBC daily. Follow trends. Fibrinogen in a.m. Transfusing 2 PRBCs today. Recheck at 1800 hrs. ID: Severe sepsis C. difficile UTI present prior to admission Currently on metronidazole 500 milligrams every 6 and vancomycin 250 milligrams by mouth 4 times daily. Her C. difficile C. difficile pending Blood cultures 04/24 no growth Cefepime for coverage FEN: Hypokalemia Hypomagnesia Monitor and replete electrolytes MSK: Old L2/3 compression fractures L3 hemangioma Deep tissue injury left hip and knee Elevated BMI PT evaluate and treat Wound care nurse evaluate and treat Weight loss encouraged Access -Left subclavian CVL placed 04/25. Remove right IJ CVL day #2 placed 04/24 in ED Prophylaxis -GI -famotidine -DVT -SCD/heparin drip Critical Care: The total critical care time was 30 minutes. Time to perform other separately billable procedures was not included in the critical care time. Palliative care involved. At this point likely trending towards comfort cares with acute blood loss anemia/unable to stop heparinization due to acute pulmonary embolism with possible toxic megacolon severe sepsis.
--- NOTE | 2018-04-27 12:14 | P.PNGI ---
Subjective Interval history: Patient still remains in the intensive care O2 mask oxygen, pale, Hollers out at times and with abdominal palpation, generalized abdominal discomfort Physical Exam Vital signs: Vital Signs 04/26/18 13:00 04/26/18 14:00 04/26/18 15:00 Temperature 96.8 F L 97.0 F L 97.0 F L Pulse Rate 85 83 91 H Respiratory Rate 21 20 17 Blood Pressure 131/68 117/56 L 122/57 L Pulse Oximetry 98 98 100 04/26/18 16:00 04/26/18 17:00 04/26/18 18:00 Temperature 97.2 F L 97.0 F L 96.8 F L Pulse Rate 79 81 83 Respiratory Rate 13 14 19 Blood Pressure 116/67 128/58 L 120/58 L Pulse Oximetry 100 100 95 04/26/18 19:00 04/26/18 20:00 04/26/18 21:00 Temperature 97.5 F L 97.5 F L 98.1 F Pulse Rate 80 80 80 Respiratory Rate 22 22 Blood Pressure 103/52 L 103/52 L 112/54 L Pulse Oximetry 100 100 100 04/26/18 22:00 04/26/18 23:00 04/27/18 00:00 Temperature 99.1 F Pulse Rate 71 88 96 H Respiratory Rate 22 22 20 Blood Pressure 112/76 103/56 L 98/57 L Pulse Oximetry 100 100 100 04/27/18 01:00 04/27/18 02:00 04/27/18 03:00 Temperature Pulse Rate 80 71 109 H Respiratory Rate 20 22 20 Blood Pressure 98/57 L 104/50 L 104/50 L Pulse Oximetry 100 100 100 04/27/18 04:00 04/27/18 05:00 04/27/18 06:00 Temperature Pulse Rate 106 H 105 H 103 H Respiratory Rate 22 22 22 Blood Pressure 108/56 L 95/71 L 85/49 L Pulse Oximetry 100 100 100 04/27/18 08:09 Temperature Pulse Rate 79 Respiratory Rate 20 Blood Pressure Pulse Oximetry 100 Intake & Output 04/26/18 04/27/18 04/27/18 18:59 06:59 18:59 Intake Total 3348.6 / 3348.6 840 / 840 1299.4 / 1299.4 Output Total 1700 / 1700 450 / 450 Balance 1648.6 / 1648.6 390 / 390 1299.4 / 1299.4 Weight 111 kg Intake: IV 2488.6 / 2488.6 600 / 600 1299.4 / 1299.4 Heparin/D5W 25,000 U/250 mL 25, 250 / 250 000 unit In 250 ml @ Per Protocol IV.CONT TITRATE PRN Rx #:[id number] Neosynephrine Inj 40 MG In NS 563.6 / 563.6 436.4 / 436.4 Inj 496 ML @ 40 MCG/MIN 30 mls/ hr IV.CONT TITRATE PRN Rx#: [id number] KCl Inj 20 MEQ In LR 1000 mL 1010 / 1010 Inj 1,000 ML @ 125 mls/hr IV. CONT .Q8H5M AMELIE Rx#:[id number] Maxipime Inj 2,000 MG In NS Inj 100 / 100 100 / 100 100 ML @ 200 mls/hr IV.SIG Q12H AMELIE Rx#:[id number] Magnesium Sulfate 1 gm/D5W 100 100 / 100 ml Premix 100 ML @ 100 mls/hr IV.SIG Q1H AMELIE Rx#:[id number] KCl 40 mEq Premix Inj 40 meq In 100 / 100 200 / 200 100 ml @ 25 mls/hr IV.SIG Q4H AMELIE Rx#:[id number] Vancomycin Inj 1,300 MG In NS 515 / 515 513 / 513 Inj 500 ML @ 250 mls/hr IV.SIG Q12H AMELIE Rx#:[id number] Flagyl 500 MG Inj 100 ML @ 100 200 / 200 200 / 200 100 / 100 mls/hr IV.SIG Q6H AEMLIE Rx#: [id number] Oral 60 / 60 240 / 240 Intake (Blood Product) Amt 800 / 800 Rbc As-3 Leukoreduced Unit 400 / 400 [id number] Rbc As-3 Leukoreduced Unit 400 / 400 [id number] Output: Urine Amount (Catheter) 1700 / 1700 450 / 450 Indwelling Urethral Catheter 1700 / 1700 450 / 450 Other: Date of Last Bowel Movement 04/26/18 04/27/18 # Bowel Movements 3 1 - Constitutional no acute distress (Initially but hollers out with abdominal palpation) - Routine HEENT Exam Head: Present: normocephalic (Frail) ENT: Present: mucous membranes dry (Pale) - Routine Respiratory Exam Present: accessory muscle use (Low volumes no obvious wheezing or rhonchi) - Routine Cardiovascular Exam Present: irregular rhythm - Routine Abdominal Exam Present: tenderness (To light palpation generalized, very soft minimal bowel sounds, random) - Routine Skin Exam Present: pallor - Urinary Catheter Management Indwelling Urethral Catheter Cath placed during this visit: no Results - Labs CBC & Chem 7: 04/27/18 04:30 04/27/18 04:30 Laboratory Results - last 24 hr 04/26/18 04/26/18 04/26/18 11:40 12:16 14:40 WBC RBC Hgb 8.8 L D Hct 25.4 L MCV MCH MCHC RDW Plt Count MPV Neut % (Auto) Lymph % (Auto) [place] % (Auto) Eos % (Auto) Baso % (Auto) Neut # (Auto) Lymph # (Auto) [place] # (Auto) Eos # (Auto) Baso # (Auto) WBC Differential Differential Comment PT 15.5 H INR 1.5 APTT 106.6 H* D 61.8 H D Fibrinogen 103 L Sodium Potassium Chloride Carbon Dioxide Anion Gap BUN Creatinine Estimated GFR POC Glucose Random Glucose Lactic Acid Calcium Prot Corrected Calcium Phosphorus Magnesium Total Bilirubin AST ALT Alkaline Phosphatase Total Protein Albumin 04/26/18 04/26/18 04/27/18 21:17 21:27 00:24 WBC RBC Hgb 8.3 L Hct MCV MCH MCHC RDW Plt Count MPV Neut % (Auto) Lymph % (Auto) [place] % (Auto) Eos % (Auto) Baso % (Auto) Neut # (Auto) Lymph # (Auto) [place] # (Auto) Eos # (Auto) Baso # (Auto) WBC Differential Differential Comment PT INR APTT Greater than 277.5 H* Fibrinogen Sodium Potassium 2.3 L* Chloride Carbon Dioxide Anion Gap BUN Creatinine Estimated GFR POC Glucose Random Glucose Lactic Acid Calcium Prot Corrected Calcium Phosphorus 1.5 L Magnesium 1.3 L Total Bilirubin AST ALT Alkaline Phosphatase Total Protein Albumin 04/27/18 04/27/18 04/27/18 04:30 04:30 04:30 WBC 16.6 H RBC 2.86 L Hgb 8.5 L Hct 23.9 L MCV 83.5 MCH 29.8 MCHC 35.7 RDW 16.9 Plt Count 110 L MPV 8.9 Neut % (Auto) 84.9 H Lymph % (Auto) 10.5 [place] % (Auto) 4.5 Eos % (Auto) 0.1 Baso % (Auto) 0.0 Neut # (Auto) 14.1 H Lymph # (Auto) 1.7 [place] # (Auto) 0.8 Eos # (Auto) 0.0 Baso # (Auto) 0.0 WBC Differential . Differential Comment Auto diff final PT INR APTT Fibrinogen Sodium 142 Potassium 2.8 L* Chloride 114 H Carbon Dioxide 16.0 L Anion Gap 12 BUN 20 H Creatinine 0.49 L Estimated GFR Greater than 89 POC Glucose Random Glucose 122 H Lactic Acid 1.3 Calcium 6.9 L* Prot Corrected Calcium 8.6 Phosphorus 1.6 L Magnesium 1.8 Total Bilirubin 1.3 H AST 18 ALT 15 Alkaline Phosphatase 80 Total Protein 4.1 L Albumin 2.2 L 04/27/18 04/27/18 06:32 07:00 WBC RBC Hgb Hct MCV MCH MCHC RDW Plt Count MPV Neut % (Auto) Lymph % (Auto) [place] % (Auto) Eos % (Auto) Baso % (Auto) Neut # (Auto) Lymph # (Auto) [place] # (Auto) Eos # (Auto) Baso # (Auto) WBC Differential Differential Comment PT INR APTT 50.4 H D Fibrinogen Sodium Potassium Chloride Carbon Dioxide Anion Gap BUN Creatinine Estimated GFR POC Glucose 132 H Random Glucose Lactic Acid Calcium Prot Corrected Calcium Phosphorus Magnesium Total Bilirubin AST ALT Alkaline Phosphatase Total Protein Albumin Microbiology 04/24/18 20:35 Blood - Peripheral Aerobic Blood Culture - Final S. aureus MRSA Klebsiella pneumoniae 04/24/18 20:35 Blood - Peripheral Anaerobic Blood Culture - Final S. aureus MRSA 04/24/18 21:30 Blood - Peripheral Aerobic Blood Culture - Final S. aureus MRSA 04/24/18 21:30 Blood - Peripheral Anaerobic Blood Culture - Final S. aureus MRSA 04/26/18 15:07 Blood - Peripheral Aerobic Blood Culture - Preliminary No growth in 1 day 04/26/18 15:07 Blood - Peripheral Anaerobic Blood Culture - Preliminary No growth in 1 day 04/26/18 15:42 Blood - Peripheral Aerobic Blood Culture - Preliminary No growth in 1 day 04/26/18 15:42 Blood - Peripheral Anaerobic Blood Culture - Preliminary No growth in 1 day 04/24/18 23:04 Catheterized Urine Urine Culture - Final Klebsiella pneumoniae Assessment and Plan - Plan Assessment: - Distended colon in setting of septic presentation with recent C. Diff Electrolyte imbalance, septic appearance with leukocytosis, and hypoalbuminemia Pt with recent admission, our service was consulted for imaging showing fecal impaction- pt had presented with nausea, vomiting, diarrhea. After some enemas and laxatives pts symptoms resolved. Stool was sent which came back C. Diff positive, pt was discharged to group home on 28 days of oral Vancomycin and Cholestyramine- pt was just discharged yesterday Sent back to hospital for altered mentation, low O2 sats, low temperature, and hypotension Our service has been consulted to evaluate for C. Diff colitis. According to RN pt has had 3 loose, yellow colored BMs since her shift that began at 7am. C. Diff testing negative. CT abdomen and pelvis W IV contrast --> There are moderately distended air and fluid-filled loops of large bowel noted diffusely. Body wall edema. No focal fluid collections are identified to suggest abscess - Pulmonary embolism S/P TPA yesterday, currently on Heparin gtt - A-fib with RVR on admission- now on Amiodarone gtt (04/26) Pt sitting up in bed, RN at bedside helping her eat breakfast. Significant drop in hgb noted with no obvious source of bleeding. Per RN no emesis, pt has been having loose yellow colored stools. She does reports a wound to patients right side but states it is oozing, also bruising noted to bilateral femoral area from previous central line attempts Palliative care meeting with family today to determine goals of care, pt is currently DNR. 04/27/2018 current hemoglobin 8.5 no obvious bleeding but patient remains very pale. Requiring intensive care monitoring and oxygen per mask. Reactive hollering out to abdominal palpation minimal soft bowel sounds. Abdominal x-ray on 04 26 shows persistent mild diffuse dilation of the large bowel , continue monitoring ileus. C. difficile negative. No obvious bleeding noted no acute changes as patient remains critically ill. Sepsis Not stable enough for any GI procedures and none warranted at this time. Plan: Bharathi Looney Monitor labs for any obvious bleeding Supportive care Patient seen per myself and Dr. Rocha, note was written on her behalf
--- NOTE | 2018-04-27 13:03 | P.PNWCN ---
Wound Care Nurse Consult Description: Consult for Pressure Ulcer multiple pressure wounds. Buttock wounds. Communicated with: DAV Tavarez Recommendation: *Calazime BID and PRN for moisture to bilateral buttocks. *Packing of Maxorb Extra AG to Right hip and Left knee Q3D Additional information: Patient known to insurance underwriter from previous admission on [facility]. Patient now has been seen on [facility] Wound/Pressure Injury - Wound Left Knee Wound Assessment: Ongoing Is This a Chronic Wound: Yes Requested from Provider a Wound Care Consult: Yes Length: 2.7 (cm) Width: 3 (cm) Depth: 1.7 (cm) Wound Bed Appearance: [place], White Drainage Amount: None (no active drainage noted) Drainage Odor: No Odor Dressing Status: Changed Cleansing Solution: Saline Wound Packing Type: Gauze Pads (moistened with NS) Primary Dressing: Gauze Pad Tape Type: Elastoplast Wound Dressing Change Date: 04/27/18 Right Hip Is This a Chronic Wound: Yes Requested from Provider a Wound Care Consult: Yes Length: 3 (cm) Width: 7 (cm) Depth: 5.4 (cm) Wound Bed Appearance: [place], Red Surrounding Tissue Temperature: Cool (weeping) Drainage Description: Serous Drainage Amount: Scant Drainage Odor: No Odor Dressing Status: Changed Cleansing Solution: Saline Wound Packing Type: Alginate Primary Dressing: [place] Cover Dressing: Adhesive Dressing Wound Dressing Change Date: 04/27/18 Sacrum Is This a Chronic Wound: Yes Requested from Provider a Wound Care Consult: Yes Wound Bed Appearance: Pale, Peeling Skin, [place] Drainage Amount: None Drainage Odor: No Odor Dressing Status: Open to Air
--- NOTE | 2018-04-27 13:36 | P.PNPAL ---
Reason for Visit Reason for visit: a. To assist with evaluation and management of symptoms including: Dyspnea, pain, encephalopathy b. To assist medical decision maker(s) with: better understanding of current medical conditions; weighing benefits/burdens of medical treatment options; making medical treatment decisions. Subjective Subjective/Interval History: INTERVAL NOTE: Seeing patient in follow-up for reevaluating her pain, dyspnea, encephalopathy. The patient calls out at times, seems to be grimacing at times. She does not appear dyspneic. She is more lethargic. She remains afebrile. White count is down to 16, and hemoglobin is 8.5 after transfusion. Family/Friend Interactions: Met again with patient's daughter, who is requesting DNR status and a referral to hospice. She would like the patient to be returned to the assisted with hospice help, understanding that is likely to occur within days. Advance Directives Significant change in goals:: Transition to hospice today Objective Vital Signs: Vital Signs 04/26/18 14:00 04/26/18 15:00 04/26/18 16:00 Temperature 97.0 F L 97.0 F L 97.2 F L Pulse Rate 83 91 H 79 Respiratory Rate 20 17 13 Blood Pressure 117/56 L 122/57 L 116/67 Pulse Oximetry 98 100 100 04/26/18 17:00 04/26/18 18:00 04/26/18 19:00 Temperature 97.0 F L 96.8 F L 97.5 F L Pulse Rate 81 83 80 Respiratory Rate 14 19 Blood Pressure 128/58 L 120/58 L 103/52 L Pulse Oximetry 100 95 100 04/26/18 20:00 04/26/18 21:00 04/26/18 22:00 Temperature 97.5 F L 98.1 F Pulse Rate 80 80 71 Respiratory Rate 22 22 22 Blood Pressure 103/52 L 112/54 L 112/76 Pulse Oximetry 100 100 100 04/26/18 23:00 04/27/18 00:00 04/27/18 01:00 Temperature 99.1 F Pulse Rate 88 96 H 80 Respiratory Rate 22 20 20 Blood Pressure 103/56 L 98/57 L 98/57 L Pulse Oximetry 100 100 100 04/27/18 02:00 04/27/18 03:00 04/27/18 04:00 Temperature Pulse Rate 71 109 H 106 H Respiratory Rate 22 20 22 Blood Pressure 104/50 L 104/50 L 108/56 L Pulse Oximetry 100 100 100 04/27/18 05:00 04/27/18 06:00 04/27/18 08:09 Temperature Pulse Rate 105 H 103 H 79 Respiratory Rate 22 22 20 Blood Pressure 95/71 L 85/49 L Pulse Oximetry 100 100 100 04/27/18 12:16 04/27/18 12:40 Temperature Pulse Rate 102 H Respiratory Rate 20 22 Blood Pressure Pulse Oximetry Intake & Output 04/26/18 04/27/18 04/27/18 18:59 06:59 18:59 Intake Total 3348.6 / 3348.6 840 / 840 1699.4 / 1699.4 Output Total 1700 / 1700 450 / 450 Balance 1648.6 / 1648.6 390 / 390 1699.4 / 1699.4 Weight 111 kg Intake: IV 2488.6 / 2488.6 600 / 600 1699.4 / 1699.4 Heparin/D5W 25,000 U/250 mL 25, 250 / 250 000 unit In 250 ml @ Per Protocol IV.CONT TITRATE PRN Rx #:[id number] Neosynephrine Inj 40 MG In NS 563.6 / 563.6 436.4 / 436.4 Inj 496 ML @ 40 MCG/MIN 30 mls/ hr IV.CONT TITRATE PRN Rx#: [id number] KCl Inj 20 MEQ In LR 1000 mL 1010 / 1010 Inj 1,000 ML @ 125 mls/hr IV. CONT .Q8H5M [facility] Rx#:[id number] Maxipime Inj 2,000 MG In NS Inj 100 / 100 100 / 100 100 / 100 100 ML @ 200 mls/hr IV.SIG Q12H [facility] Rx#:[id number] Magnesium Sulfate 1 gm/D5W 100 100 / 100 100 / 100 ml Premix 100 ML @ 100 mls/hr IV.SIG Q1H [facility] Rx#:[id number] KCl 40 mEq Premix Inj 40 meq In 100 / 100 200 / 200 100 / 100 100 ml @ 25 mls/hr IV.SIG Q4H [facility] Rx#:[id number] Vancomycin Inj 1,300 MG In NS 515 / 515 513 / 513 Inj 500 ML @ 250 mls/hr IV.SIG Q12H [facility] Rx#:[id number] Flagyl 500 MG Inj 100 ML @ 100 200 / 200 200 / 200 200 / 200 mls/hr IV.SIG Q6H [facility] Rx#: [id number] Oral 60 / 60 240 / 240 Intake (Blood Product) Amt 800 / 800 Rbc As-3 Leukoreduced Unit 400 / 400 [id number] Rbc As-3 Leukoreduced Unit 400 / 400 [id number] Output: Urine Amount (Catheter) 1700 / 1700 450 / 450 Indwelling Urethral Catheter 1700 / 1700 450 / 450 Other: Date of Last Bowel Movement 04/26/18 04/27/18 04/27/18 # Bowel Movements 3 1 Physical Exam: CONSTITUTIONAL/GENERAL: This is an elderly, weak, confused patient, in no apparent distress but occasionally calling out. TUBES/LINES/DRAINS: IV access, [place], nasal oxygen SKIN: No jaundice CARDIOVASCULAR: Regular rate and rhythm without murmurs, gallops, or rubs. No JVD. Peripheral pulses symmetric. RESPIRATORY/CHEST: Symmetric, unlabored respirations. Scattered rhonchi. GASTROINTESTINAL: Abdomen soft, non-tender, nondistended. No hepato-splenomegaly , or palpable masses. No guarding. Bowel sounds present. MUSCULOSKELETAL: Extremities without clubbing, cyanosis, but there is chronic doughy edema of the legs. No joint tenderness or effusion noted. No calf tenderness. No mottling or clubbing. NEUROLOGICAL: Awakens easily, mumbles and sometimes calls out. Not following commands now. Moves all extremities. PSYCHIATRIC: No obvious anxiety/depression. no apparent hallucinations or other psychotic thought process. Diagnostic Tests Laboratory: Laboratory Results - last 72 hr 04/24/18 04/24/18 04/24/18 21:12 21:28 21:28 WBC 40.3 H RBC 4.44 Hgb 12.7 Hct 38.0 MCV 85.6 MCH 28.6 MCHC 33.4 RDW 18.4 H Plt Count 215 MPV 9.5 Prelim Diff (Auto) Slide review pending Neut % (Auto) 95.2 H Lymph % (Auto) 2.5 L [place] % (Auto) 1.4 Eos % (Auto) 0.6 Baso % (Auto) 0.3 Neut # (Auto) 38.4 H Lymph # (Auto) 1.0 [place] # (Auto) 0.5 Eos # (Auto) 0.2 Baso # (Auto) 0.1 WBC Differential Manual diff final Diff Scan Seg Neuts % (Manual) 95 H Band Neuts % (Manual) Lymphocytes % (Manual) 1 L Monocytes % (Manual) 4 Eosinophils % (Manual) Abs Neuts (Manual) 38.3 H Differential Comment . Toxic Granulation 1+ H Toxic Vacuolation Present H Dohle Bodies Platelet Estimate Platelet Morphology Ovalocytes Keratocytes PT 11.8 H D INR 1.2 APTT 32.0 H Fibrinogen Puncture Site Left radial Patient Temperature 98.6 O2 Saturation 98 ABG pH 7.56 H* ABG pCO2 19 L* ABG pO2 251 H ABG HCO3 17 L ABG O2 Content 18.3 ABG Base Excess -5.5 L ABG Methemoglobin 0.7 [place] Test Present Hemoglobin 12.9 Carboxyhemoglobin 0.8 O2 Delivery Device Prb Liter Flow 15.00 Critical Value Yes Sodium Potassium Chloride Carbon Dioxide Anion Gap BUN Creatinine Estimated GFR POC Glucose Random Glucose Lactic Acid Calcium Prot Corrected Calcium Phosphorus Magnesium Total Bilirubin AST ALT Alkaline Phosphatase Total Creatine Kinase CK-MB (CK-2) Troponin I Total Protein Albumin Lipase TSH Urine Color Urine Clarity Urine pH Ur Specific [place] Urine Protein Urine Glucose (UA) Urine Ketones Urine Occult Blood Urine Nitrate Urine Bilirubin Urine Urobilinogen Ur Leukocyte Esterase Urine RBC Urine WBC Urine WBC Clumps Ur Squamous Epith Cells Ur Transition Epith Cell Ur Renal Epithelial Cell Urine Bacteria Hyaline Casts Granular Casts Urine Mucus Micro UA Comment Urine Culture Comments Nasal Screen MRSA (PCR) Stl C.difficile Tox PCR St C. diff Tox Epid 027 Blood Type Blood Type Recheck Antibody Screen MTS Gel Crossmatch 04/24/18 04/24/18 04/24/18 21:28 21:28 23:04 WBC RBC Hgb Hct MCV MCH MCHC RDW Plt Count MPV Prelim Diff (Auto) Neut % (Auto) Lymph % (Auto) [place] % (Auto) Eos % (Auto) Baso % (Auto) Neut # (Auto) Lymph # (Auto) [place] # (Auto) Eos # (Auto) Baso # (Auto) WBC Differential Diff Scan Seg Neuts % (Manual) Band Neuts % (Manual) Lymphocytes % (Manual) Monocytes % (Manual) Eosinophils % (Manual) Abs Neuts (Manual) Differential Comment Toxic Granulation Toxic Vacuolation Dohle Bodies Platelet Estimate Platelet Morphology Ovalocytes Keratocytes PT INR APTT Fibrinogen Puncture Site Patient Temperature O2 Saturation ABG pH ABG pCO2 ABG pO2 ABG HCO3 ABG O2 Content ABG Base Excess ABG Methemoglobin [place] Test Hemoglobin Carboxyhemoglobin O2 Delivery Device Liter Flow Critical Value Sodium 129 L Potassium 4.4 Chloride 99 Carbon Dioxide 16.9 L Anion Gap 13 BUN 31 H Creatinine 0.76 Estimated GFR 73 L POC Glucose Random Glucose 104 Lactic Acid 1.5 Calcium 7.2 L* Prot Corrected Calcium 8.3 L Phosphorus Magnesium 1.7 Total Bilirubin 0.8 AST 57 H ALT 23 Alkaline Phosphatase 180 H Total Creatine Kinase 125 CK-MB (CK-2) 1.0 Troponin I 0.07 H Total Protein 5.0 L Albumin 1.4 L Lipase 27 L TSH Urine Color [place] Urine Clarity Cloudy H Urine pH 5.0 Ur Specific [place] 1.016 Urine Protein Negative Urine Glucose (UA) Negative Urine Ketones Negative Urine Occult Blood Negative Urine Nitrate Negative Urine Bilirubin Negative Urine Urobilinogen Less than 2 Ur Leukocyte Esterase Large H Urine RBC 11 H Urine WBC Urine WBC Clumps Many H Ur Squamous Epith Cells <1 Ur Transition Epith Cell <1 Ur Renal Epithelial Cell <1 Urine Bacteria Occasional H Hyaline Casts 74 Granular Casts 4 Urine Mucus Few H Micro UA Comment Cath-culture ind Urine Culture Comments Cath-cult indicated Nasal Screen MRSA (PCR) Stl C.difficile Tox PCR St C. diff Tox Epid 027 Blood Type Blood Type Recheck Antibody Screen MTS Gel Crossmatch 04/25/18 04/25/18 04/25/18 00:04 02:16 03:24 WBC RBC Hgb Hct MCV MCH MCHC RDW Plt Count MPV Prelim Diff (Auto) Neut % (Auto) Lymph % (Auto) [place] % (Auto) Eos % (Auto) Baso % (Auto) Neut # (Auto) Lymph # (Auto) [place] # (Auto) Eos # (Auto) Baso # (Auto) WBC Differential Diff Scan Seg Neuts % (Manual) Band Neuts % (Manual) Lymphocytes % (Manual) Monocytes % (Manual) Eosinophils % (Manual) Abs Neuts (Manual) Differential Comment Toxic Granulation Toxic Vacuolation Dohle Bodies Platelet Estimate Platelet Morphology Ovalocytes Keratocytes PT 13.2 H INR 1.3 APTT 47.1 H D Fibrinogen Puncture Site Patient Temperature O2 Saturation ABG pH ABG pCO2 ABG pO2 ABG HCO3 ABG O2 Content ABG Base Excess ABG Methemoglobin [place] Test Hemoglobin Carboxyhemoglobin O2 Delivery Device Liter Flow Critical Value Sodium Potassium Chloride Carbon Dioxide Anion Gap BUN Creatinine Estimated GFR POC Glucose 117 H Random Glucose Lactic Acid Calcium Prot Corrected Calcium Phosphorus Magnesium Total Bilirubin AST ALT Alkaline Phosphatase Total Creatine Kinase CK-MB (CK-2) Troponin I Total Protein Albumin Lipase TSH Urine Color Urine Clarity Urine pH Ur Specific [place] Urine Protein Urine Glucose (UA) Urine Ketones Urine Occult Blood Urine Nitrate Urine Bilirubin Urine Urobilinogen Ur Leukocyte Esterase Urine RBC Urine WBC Urine WBC Clumps Ur Squamous Epith Cells Ur Transition Epith Cell Ur Renal Epithelial Cell Urine Bacteria Hyaline Casts Granular Casts Urine Mucus Micro UA Comment Urine Culture Comments Nasal Screen MRSA (PCR) Mrsa detected Stl C.difficile Tox PCR St C. diff Tox Epid 027 Blood Type Blood Type Recheck Antibody Screen MTS Gel Crossmatch 04/25/18 04/25/18 04/25/18 06:12 06:55 06:55 WBC 48.5 H RBC 3.31 L Hgb 9.5 L D Hct 28.6 L MCV 86.3 MCH 28.6 MCHC 33.1 RDW 18.4 H Plt Count 150 D MPV 8.3 Prelim Diff (Auto) Manual diff required Neut % (Auto) Lymph % (Auto) [place] % (Auto) Eos % (Auto) Baso % (Auto) Neut # (Auto) Lymph # (Auto) [place] # (Auto) Eos # (Auto) Baso # (Auto) WBC Differential Manual diff final Diff Scan Seg Neuts % (Manual) 83 H Band Neuts % (Manual) 15 H Lymphocytes % (Manual) Monocytes % (Manual) 1 Eosinophils % (Manual) 1 Abs Neuts (Manual) 47.5 H Differential Comment . Toxic Granulation Toxic Vacuolation Present H Dohle Bodies Platelet Estimate Normal Platelet Morphology Normal Ovalocytes Keratocytes PT 18.1 H INR 1.8 APTT 69.6 H D Fibrinogen Puncture Site Patient Temperature O2 Saturation ABG pH ABG pCO2 ABG pO2 ABG HCO3 ABG O2 Content ABG Base Excess ABG Methemoglobin [place] Test Hemoglobin Carboxyhemoglobin O2 Delivery Device Liter Flow Critical Value Sodium 138 Potassium 2.2 L* D Chloride 106 Carbon Dioxide 18.5 L Anion Gap 14 BUN 28 H Creatinine 0.51 Estimated GFR Greater than 89 POC Glucose Random Glucose 137 H Lactic Acid Calcium 7.6 L Prot Corrected Calcium Phosphorus 2.8 Magnesium 1.5 Total Bilirubin 1.3 H AST 20 ALT 13 Alkaline Phosphatase 109 Total Creatine Kinase CK-MB (CK-2) Troponin I Total Protein 3.7 L D Albumin 1.7 L Lipase TSH Urine Color Urine Clarity Urine pH Ur Specific [place] Urine Protein Urine Glucose (UA) Urine Ketones Urine Occult Blood Urine Nitrate Urine Bilirubin Urine Urobilinogen Ur Leukocyte Esterase Urine RBC Urine WBC Urine WBC Clumps Ur Squamous Epith Cells Ur Transition Epith Cell Ur Renal Epithelial Cell Urine Bacteria Hyaline Casts Granular Casts Urine Mucus Micro UA Comment Urine Culture Comments Nasal Screen MRSA (PCR) Stl C.difficile Tox PCR St C. diff Tox Epid 027 Blood Type Blood Type Recheck Antibody Screen MTS Gel Crossmatch 04/25/18 04/25/18 04/25/18 06:55 07:15 08:33 WBC RBC Hgb Hct MCV MCH MCHC RDW Plt Count MPV Prelim Diff (Auto) Neut % (Auto) Lymph % (Auto) [place] % (Auto) Eos % (Auto) Baso % (Auto) Neut # (Auto) Lymph # (Auto) [place] # (Auto) Eos # (Auto) Baso # (Auto) WBC Differential Diff Scan Seg Neuts % (Manual) Band Neuts % (Manual) Lymphocytes % (Manual) Monocytes % (Manual) Eosinophils % (Manual) Abs Neuts (Manual) Differential Comment Toxic Granulation Toxic Vacuolation Dohle Bodies Platelet Estimate Platelet Morphology Ovalocytes Keratocytes PT INR APTT Fibrinogen Puncture Site Patient Temperature O2 Saturation ABG pH ABG pCO2 ABG pO2 ABG HCO3 ABG O2 Content ABG Base Excess ABG Methemoglobin [place] Test Hemoglobin Carboxyhemoglobin O2 Delivery Device Liter Flow Critical Value Sodium Potassium 2.1 L* Chloride Carbon Dioxide Anion Gap BUN Creatinine Estimated GFR POC Glucose Random Glucose Lactic Acid 2.0 Calcium Prot Corrected Calcium Phosphorus Magnesium Total Bilirubin AST ALT Alkaline Phosphatase Total Creatine Kinase CK-MB (CK-2) Troponin I Total Protein Albumin Lipase TSH Urine Color Urine Clarity Urine pH Ur Specific [place] Urine Protein Urine Glucose (UA) Urine Ketones Urine Occult Blood Urine Nitrate Urine Bilirubin Urine Urobilinogen Ur Leukocyte Esterase Urine RBC Urine WBC Urine WBC Clumps Ur Squamous Epith Cells Ur Transition Epith Cell Ur Renal Epithelial Cell Urine Bacteria Hyaline Casts Granular Casts Urine Mucus Micro UA Comment Urine Culture Comments Nasal Screen MRSA (PCR) Stl C.difficile Tox PCR Negative St C. diff Tox Epid 027 Negative Blood Type Blood Type Recheck Antibody Screen MTS Gel Crossmatch 04/25/18 04/25/18 04/25/18 10:20 14:30 14:30 WBC RBC Hgb Hct MCV MCH MCHC RDW Plt Count MPV Prelim Diff (Auto) Neut % (Auto) Lymph % (Auto) [place] % (Auto) Eos % (Auto) Baso % (Auto) Neut # (Auto) Lymph # (Auto) [place] # (Auto) Eos # (Auto) Baso # (Auto) WBC Differential Diff Scan Seg Neuts % (Manual) Band Neuts % (Manual) Lymphocytes % (Manual) Monocytes % (Manual) Eosinophils % (Manual) Abs Neuts (Manual) Differential Comment Toxic Granulation Toxic Vacuolation Dohle Bodies Platelet Estimate Platelet Morphology Ovalocytes Keratocytes PT INR APTT Fibrinogen Puncture Site Patient Temperature O2 Saturation ABG pH ABG pCO2 ABG pO2 ABG HCO3 ABG O2 Content ABG Base Excess ABG Methemoglobin [place] Test Hemoglobin Carboxyhemoglobin O2 Delivery Device Liter Flow Critical Value Sodium 138 Potassium 2.3 L* Chloride 108 H Carbon Dioxide 17.2 L Anion Gap 13 BUN 24 H Creatinine 0.67 Estimated GFR 84 L POC Glucose Random Glucose 208 H Lactic Acid 2.1 H Calcium 6.9 L* Prot Corrected Calcium 8.6 Phosphorus 2.2 L Magnesium 1.5 Total Bilirubin AST ALT Alkaline Phosphatase Total Creatine Kinase CK-MB (CK-2) Troponin I Total Protein 4.0 L Albumin Lipase TSH Urine Color Urine Clarity Urine pH Ur Specific [place] Urine Protein Urine Glucose (UA) Urine Ketones Urine Occult Blood Urine Nitrate Urine Bilirubin Urine Urobilinogen Ur Leukocyte Esterase Urine RBC Urine WBC Urine WBC Clumps Ur Squamous Epith Cells Ur Transition Epith Cell Ur Renal Epithelial Cell Urine Bacteria Hyaline Casts Granular Casts Urine Mucus Micro UA Comment Urine Culture Comments Nasal Screen MRSA (PCR) Stl C.difficile Tox PCR St C. diff Tox Epid 027 Blood Type A Positive Blood Type Recheck Required Antibody Screen Negative MTS Gel Crossmatch 04/25/18 04/25/18 04/26/18 18:35 22:15 00:15 WBC RBC Hgb Hct MCV MCH MCHC RDW Plt Count MPV Prelim Diff (Auto) Neut % (Auto) Lymph % (Auto) [place] % (Auto) Eos % (Auto) Baso % (Auto) Neut # (Auto) Lymph # (Auto) [place] # (Auto) Eos # (Auto) Baso # (Auto) WBC Differential Diff Scan Seg Neuts % (Manual) Band Neuts % (Manual) Lymphocytes % (Manual) Monocytes % (Manual) Eosinophils % (Manual) Abs Neuts (Manual) Differential Comment Toxic Granulation Toxic Vacuolation Dohle Bodies Platelet Estimate Platelet Morphology Ovalocytes Keratocytes PT INR APTT Greater than 277.5 H* 191.4 H* D 88.4 H D Fibrinogen Puncture Site Patient Temperature O2 Saturation ABG pH ABG pCO2 ABG pO2 ABG HCO3 ABG O2 Content ABG Base Excess ABG Methemoglobin [place] Test Hemoglobin Carboxyhemoglobin O2 Delivery Device Liter Flow Critical Value Sodium Potassium Chloride Carbon Dioxide Anion Gap BUN Creatinine Estimated GFR POC Glucose Random Glucose Lactic Acid Calcium Prot Corrected Calcium Phosphorus Magnesium Total Bilirubin AST ALT Alkaline Phosphatase Total Creatine Kinase CK-MB (CK-2) Troponin I Total Protein Albumin Lipase TSH Urine Color Urine Clarity Urine pH Ur Specific [place] Urine Protein Urine Glucose (UA) Urine Ketones Urine Occult Blood Urine Nitrate Urine Bilirubin Urine Urobilinogen Ur Leukocyte Esterase Urine RBC Urine WBC Urine WBC Clumps Ur Squamous Epith Cells Ur Transition Epith Cell Ur Renal Epithelial Cell Urine Bacteria Hyaline Casts Granular Casts Urine Mucus Micro UA Comment Urine Culture Comments Nasal Screen MRSA (PCR) Stl C.difficile Tox PCR St C. diff Tox Epid 027 Blood Type Blood Type Recheck Antibody Screen MTS Gel Crossmatch 04/26/18 04/26/18 04/26/18 04:15 04:15 04:20 WBC 22.7 H D RBC 1.76 L Hgb 4.9 L* D Hct 15.1 L* MCV 85.6 MCH 28.1 MCHC 32.9 RDW 18.9 H Plt Count 115 L MPV 8.3 Prelim Diff (Auto) Neut % (Auto) Lymph % (Auto) [place] % (Auto) Eos % (Auto) Baso % (Auto) Neut # (Auto) Lymph # (Auto) [place] # (Auto) Eos # (Auto) Baso # (Auto) WBC Differential Diff Scan Seg Neuts % (Manual) Band Neuts % (Manual) Lymphocytes % (Manual) Monocytes % (Manual) Eosinophils % (Manual) Abs Neuts (Manual) Differential Comment Toxic Granulation Toxic Vacuolation Dohle Bodies Platelet Estimate Platelet Morphology Ovalocytes Keratocytes PT INR APTT Fibrinogen Puncture Site Patient Temperature O2 Saturation ABG pH ABG pCO2 ABG pO2 ABG HCO3 ABG O2 Content ABG Base Excess ABG Methemoglobin [place] Test Hemoglobin Carboxyhemoglobin O2 Delivery Device Liter Flow Critical Value Sodium Potassium Chloride Carbon Dioxide Anion Gap BUN Creatinine Estimated GFR POC Glucose Random Glucose Lactic Acid 1.1 Calcium Prot Corrected Calcium Phosphorus Magnesium Total Bilirubin AST ALT Alkaline Phosphatase Total Creatine Kinase CK-MB (CK-2) Troponin I Total Protein Albumin Lipase TSH 1.220 Urine Color Urine Clarity Urine pH Ur Specific [place] Urine Protein Urine Glucose (UA) Urine Ketones Urine Occult Blood Urine Nitrate Urine Bilirubin Urine Urobilinogen Ur Leukocyte Esterase Urine RBC Urine WBC Urine WBC Clumps Ur Squamous Epith Cells Ur Transition Epith Cell Ur Renal Epithelial Cell Urine Bacteria Hyaline Casts Granular Casts Urine Mucus Micro UA Comment Urine Culture Comments Nasal Screen MRSA (PCR) Stl C.difficile Tox PCR St C. diff Tox Epid 027 Blood Type Blood Type Recheck Antibody Screen MTS Gel Crossmatch 04/26/18 04/26/18 04/26/18 05:00 05:22 07:35 WBC 22.3 H RBC 1.77 L Hgb 4.9 L* Hct 15.3 L* MCV 86.5 MCH 27.9 MCHC 32.2 RDW 19.1 H Plt Count 121 L MPV 8.5 Prelim Diff (Auto) Slide review pending Neut % (Auto) 88.5 H Lymph % (Auto) 7.8 L [place] % (Auto) 3.5 Eos % (Auto) 0.1 Baso % (Auto) 0.1 Neut # (Auto) 19.8 H Lymph # (Auto) 1.7 [place] # (Auto) 0.8 Eos # (Auto) 0.0 Baso # (Auto) 0.0 WBC Differential . Diff Scan Auto diff confirmed Seg Neuts % (Manual) Band Neuts % (Manual) Lymphocytes % (Manual) Monocytes % (Manual) Eosinophils % (Manual) Abs Neuts (Manual) Differential Comment . Toxic Granulation Toxic Vacuolation Dohle Bodies Present H Platelet Estimate Low L Platelet Morphology Normal Ovalocytes 1+ H Keratocytes Occ H PT INR APTT Greater than 277.5 H* Fibrinogen Puncture Site Patient Temperature O2 Saturation ABG pH ABG pCO2 ABG pO2 ABG HCO3 ABG O2 Content ABG Base Excess ABG Methemoglobin [place] Test Hemoglobin Carboxyhemoglobin O2 Delivery Device Liter Flow Critical Value Sodium Potassium Chloride Carbon Dioxide Anion Gap BUN Creatinine Estimated GFR POC Glucose Random Glucose Lactic Acid Calcium Prot Corrected Calcium Phosphorus Magnesium Total Bilirubin AST ALT Alkaline Phosphatase Total Creatine Kinase CK-MB (CK-2) Troponin I Total Protein Albumin Lipase TSH Urine Color Urine Clarity Urine pH Ur Specific [place] Urine Protein Urine Glucose (UA) Urine Ketones Urine Occult Blood Urine Nitrate Urine Bilirubin Urine Urobilinogen Ur Leukocyte Esterase Urine RBC Urine WBC Urine WBC Clumps Ur Squamous Epith Cells Ur Transition Epith Cell Ur Renal Epithelial Cell Urine Bacteria Hyaline Casts Granular Casts Urine Mucus Micro UA Comment Urine Culture Comments Nasal Screen MRSA (PCR) Stl C.difficile Tox PCR St C. diff Tox Epid 027 Blood Type Blood Type Recheck Antibody Screen MTS Gel Crossmatch See Detail 04/26/18 04/26/18 04/26/18 07:35 08:50 11:40 WBC RBC Hgb Hct MCV MCH MCHC RDW Plt Count MPV Prelim Diff (Auto) Neut % (Auto) Lymph % (Auto) [place] % (Auto) Eos % (Auto) Baso % (Auto) Neut # (Auto) Lymph # (Auto) [place] # (Auto) Eos # (Auto) Baso # (Auto) WBC Differential Diff Scan Seg Neuts % (Manual) Band Neuts % (Manual) Lymphocytes % (Manual) Monocytes % (Manual) Eosinophils % (Manual) Abs Neuts (Manual) Differential Comment Toxic Granulation Toxic Vacuolation Dohle Bodies Platelet Estimate Platelet Morphology Ovalocytes Keratocytes PT 15.5 H INR 1.5 APTT 106.6 H* D Fibrinogen 103 L Puncture Site Patient Temperature O2 Saturation ABG pH ABG pCO2 ABG pO2 ABG HCO3 ABG O2 Content ABG Base Excess ABG Methemoglobin [place] Test Hemoglobin Carboxyhemoglobin O2 Delivery Device Liter Flow Critical Value Sodium 138 Potassium 2.2 L* Chloride 108 H Carbon Dioxide 18.7 L Anion Gap 11 BUN 22 H Creatinine 0.46 L Estimated GFR Greater than 89 POC Glucose Random Glucose 135 H Lactic Acid Calcium 7.1 L* Prot Corrected Calcium 8.9 Phosphorus Magnesium Total Bilirubin 1.0 AST 18 ALT 13 Alkaline Phosphatase 74 Total Creatine Kinase CK-MB (CK-2) Troponin I Total Protein 4.0 L Albumin 2.5 L D Lipase TSH Urine Color Urine Clarity Urine pH Ur Specific [place] Urine Protein Urine Glucose (UA) Urine Ketones Urine Occult Blood Urine Nitrate Urine Bilirubin Urine Urobilinogen Ur Leukocyte Esterase Urine RBC Urine WBC Urine WBC Clumps Ur Squamous Epith Cells Ur Transition Epith Cell Ur Renal Epithelial Cell Urine Bacteria Hyaline Casts Granular Casts Urine Mucus Micro UA Comment Urine Culture Comments Nasal Screen MRSA (PCR) Stl C.difficile Tox PCR St C. diff Tox Epid 027 Blood Type Blood Type Recheck Antibody Screen MTS Gel Crossmatch See Detail 04/26/18 04/26/18 04/26/18 12:16 14:40 21:17 WBC RBC Hgb 8.8 L D Hct 25.4 L MCV MCH MCHC RDW Plt Count MPV Prelim Diff (Auto) Neut % (Auto) Lymph % (Auto) [place] % (Auto) Eos % (Auto) Baso % (Auto) Neut # (Auto) Lymph # (Auto) [place] # (Auto) Eos # (Auto) Baso # (Auto) WBC Differential Diff Scan Seg Neuts % (Manual) Band Neuts % (Manual) Lymphocytes % (Manual) Monocytes % (Manual) Eosinophils % (Manual) Abs Neuts (Manual) Differential Comment Toxic Granulation Toxic Vacuolation Dohle Bodies Platelet Estimate Platelet Morphology Ovalocytes Keratocytes PT INR APTT 61.8 H D Fibrinogen Puncture Site Patient Temperature O2 Saturation ABG pH ABG pCO2 ABG pO2 ABG HCO3 ABG O2 Content ABG Base Excess ABG Methemoglobin [place] Test Hemoglobin Carboxyhemoglobin O2 Delivery Device Liter Flow Critical Value Sodium Potassium 2.3 L* Chloride Carbon Dioxide Anion Gap BUN Creatinine Estimated GFR POC Glucose Random Glucose Lactic Acid Calcium Prot Corrected Calcium Phosphorus 1.5 L Magnesium 1.3 L Total Bilirubin AST ALT Alkaline Phosphatase Total Creatine Kinase CK-MB (CK-2) Troponin I Total Protein Albumin Lipase TSH Urine Color Urine Clarity Urine pH Ur Specific [place] Urine Protein Urine Glucose (UA) Urine Ketones Urine Occult Blood Urine Nitrate Urine Bilirubin Urine Urobilinogen Ur Leukocyte Esterase Urine RBC Urine WBC Urine WBC Clumps Ur Squamous Epith Cells Ur Transition Epith Cell Ur Renal Epithelial Cell Urine Bacteria Hyaline Casts Granular Casts Urine Mucus Micro UA Comment Urine Culture Comments Nasal Screen MRSA (PCR) Stl C.difficile Tox PCR St C. diff Tox Epid 027 Blood Type Blood Type Recheck Antibody Screen MTS Gel Crossmatch 04/26/18 04/27/18 04/27/18 21:27 00:24 04:30 WBC 16.6 H RBC 2.86 L Hgb 8.3 L 8.5 L Hct 23.9 L MCV 83.5 MCH 29.8 MCHC 35.7 RDW 16.9 Plt Count 110 L MPV 8.9 Prelim Diff (Auto) Neut % (Auto) 84.9 H Lymph % (Auto) 10.5 [place] % (Auto) 4.5 Eos % (Auto) 0.1 Baso % (Auto) 0.0 Neut # (Auto) 14.1 H Lymph # (Auto) 1.7 [place] # (Auto) 0.8 Eos # (Auto) 0.0 Baso # (Auto) 0.0 WBC Differential . Diff Scan Seg Neuts % (Manual) Band Neuts % (Manual) Lymphocytes % (Manual) Monocytes % (Manual) Eosinophils % (Manual) Abs Neuts (Manual) Differential Comment Auto diff final Toxic Granulation Toxic Vacuolation Dohle Bodies Platelet Estimate Platelet Morphology Ovalocytes Keratocytes PT INR APTT Greater than 277.5 H* Fibrinogen Puncture Site Patient Temperature O2 Saturation ABG pH ABG pCO2 ABG pO2 ABG HCO3 ABG O2 Content ABG Base Excess ABG Methemoglobin Parish Test Hemoglobin Carboxyhemoglobin O2 Delivery Device Liter Flow Critical Value Sodium Potassium Chloride Carbon Dioxide Anion Gap BUN Creatinine Estimated GFR POC Glucose Random Glucose Lactic Acid Calcium Prot Corrected Calcium Phosphorus Magnesium Total Bilirubin AST ALT Alkaline Phosphatase Total Creatine Kinase CK-MB (CK-2) Troponin I Total Protein Albumin Lipase TSH Urine Color Urine Clarity Urine pH Ur Specific [place] Urine Protein Urine Glucose (UA) Urine Ketones Urine Occult Blood Urine Nitrate Urine Bilirubin Urine Urobilinogen Ur Leukocyte Esterase Urine RBC Urine WBC Urine WBC Clumps Ur Squamous Epith Cells Ur Transition Epith Cell Ur Renal Epithelial Cell Urine Bacteria Hyaline Casts Granular Casts Urine Mucus Micro UA Comment Urine Culture Comments Nasal Screen MRSA (PCR) Stl C.difficile Tox PCR St C. diff Tox Epid 027 Blood Type Blood Type Recheck Antibody Screen MTS Gel Crossmatch 04/27/18 04/27/18 04/27/18 04:30 04:30 06:32 WBC RBC Hgb Hct MCV MCH MCHC RDW Plt Count MPV Prelim Diff (Auto) Neut % (Auto) Lymph % (Auto) [place] % (Auto) Eos % (Auto) Baso % (Auto) Neut # (Auto) Lymph # (Auto) [place] # (Auto) Eos # (Auto) Baso # (Auto) WBC Differential Diff Scan Seg Neuts % (Manual) Band Neuts % (Manual) Lymphocytes % (Manual) Monocytes % (Manual) Eosinophils % (Manual) Abs Neuts (Manual) Differential Comment Toxic Granulation Toxic Vacuolation Dohle Bodies Platelet Estimate Platelet Morphology Ovalocytes Keratocytes PT INR APTT Fibrinogen Puncture Site Patient Temperature O2 Saturation ABG pH ABG pCO2 ABG pO2 ABG HCO3 ABG O2 Content ABG Base Excess ABG Methemoglobin Parish Test Hemoglobin Carboxyhemoglobin O2 Delivery Device Liter Flow Critical Value Sodium 142 Potassium 2.8 L* Chloride 114 H Carbon Dioxide 16.0 L Anion Gap 12 BUN 20 H Creatinine 0.49 L Estimated GFR Greater than 89 POC Glucose 132 H Random Glucose 122 H Lactic Acid 1.3 Calcium 6.9 L* Prot Corrected Calcium 8.6 Phosphorus 1.6 L Magnesium 1.8 Total Bilirubin 1.3 H AST 18 ALT 15 Alkaline Phosphatase 80 Total Creatine Kinase CK-MB (CK-2) Troponin I Total Protein 4.1 L Albumin 2.2 L Lipase TSH Urine Color Urine Clarity Urine pH Ur Specific [place] Urine Protein Urine Glucose (UA) Urine Ketones Urine Occult Blood Urine Nitrate Urine Bilirubin Urine Urobilinogen Ur Leukocyte Esterase Urine RBC Urine WBC Urine WBC Clumps Ur Squamous Epith Cells Ur Transition Epith Cell Ur Renal Epithelial Cell Urine Bacteria Hyaline Casts Granular Casts Urine Mucus Micro UA Comment Urine Culture Comments Nasal Screen MRSA (PCR) Stl C.difficile Tox PCR St C. diff Tox Epid 027 Blood Type Blood Type Recheck Antibody Screen MTS Gel Crossmatch 04/27/18 07:00 WBC RBC Hgb Hct MCV MCH MCHC RDW Plt Count MPV Prelim Diff (Auto) Neut % (Auto) Lymph % (Auto) [place] % (Auto) Eos % (Auto) Baso % (Auto) Neut # (Auto) Lymph # (Auto) [place] # (Auto) Eos # (Auto) Baso # (Auto) WBC Differential Diff Scan Seg Neuts % (Manual) Band Neuts % (Manual) Lymphocytes % (Manual) Monocytes % (Manual) Eosinophils % (Manual) Abs Neuts (Manual) Differential Comment Toxic Granulation Toxic Vacuolation Dohle Bodies Platelet Estimate Platelet Morphology Ovalocytes Keratocytes PT INR APTT 50.4 H D Fibrinogen Puncture Site Patient Temperature O2 Saturation ABG pH ABG pCO2 ABG pO2 ABG HCO3 ABG O2 Content ABG Base Excess ABG Methemoglobin [place] Test Hemoglobin Carboxyhemoglobin O2 Delivery Device Liter Flow Critical Value Sodium Potassium Chloride Carbon Dioxide Anion Gap BUN Creatinine Estimated GFR POC Glucose Random Glucose Lactic Acid Calcium Prot Corrected Calcium Phosphorus Magnesium Total Bilirubin AST ALT Alkaline Phosphatase Total Creatine Kinase CK-MB (CK-2) Troponin I Total Protein Albumin Lipase TSH Urine Color Urine Clarity Urine pH Ur Specific [place] Urine Protein Urine Glucose (UA) Urine Ketones Urine Occult Blood Urine Nitrate Urine Bilirubin Urine Urobilinogen Ur Leukocyte Esterase Urine RBC Urine WBC Urine WBC Clumps Ur Squamous Epith Cells Ur Transition Epith Cell Ur Renal Epithelial Cell Urine Bacteria Hyaline Casts Granular Casts Urine Mucus Micro UA Comment Urine Culture Comments Nasal Screen MRSA (PCR) Stl C.difficile Tox PCR St C. diff Tox Epid 027 Blood Type Blood Type Recheck Antibody Screen MTS Gel Crossmatch Result Diagrams: 04/27/18 04:30 04/27/18 04:30 Microbiology: Microbiology 04/24/18 20:35 Aerobic Blood Culture - Final Blood - Peripheral S. aureus MRSA Klebsiella pneumoniae Anaerobic Blood Culture - Final S. aureus MRSA 04/24/18 21:30 Aerobic Blood Culture - Final Blood - Peripheral S. aureus MRSA Anaerobic Blood Culture - Final S. aureus MRSA 04/26/18 15:07 Aerobic Blood Culture - Preliminary Blood - Peripheral No growth in 1 day Anaerobic Blood Culture - Preliminary No growth in 1 day 04/26/18 15:42 Aerobic Blood Culture - Preliminary Blood - Peripheral No growth in 1 day Anaerobic Blood Culture - Preliminary No growth in 1 day 04/24/18 23:04 Urine Culture - Final Catheterized Urine Klebsiella pneumoniae 04/25/18 07:15 Stool Occult Blood ([facility]) - Final Stool Hemoccult negative Imaging: Abdomen/Pelvis CT 04/25/18 00:00 CONCLUSION: 1. There are moderately distended air and fluid-filled loops of large bowel noted diffusely. 2. Body wall edema. 3. No focal fluid collections are identified to suggest abscess. Chest CTA 04/25/18 00:00 CONCLUSION: 1. The examination is positive for pulmonary embolus on the left. 2. Left thyroid nodule. 3. Small left pleural effusion. 4. Dilatation of the main pulmonary artery. Chest X-Ray 04/25/18 09:04 CONCLUSION: 1. Tip of the left subclavian central line low within the right atrium. No pneumothorax. 2. Right internal jugular vein central venous line unchanged. Abdomen X-Ray 04/26/18 07:00 CONCLUSION: Persistent colonic distention. 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 once, about 24 years ago. Has one daughter and one son, the son lives in the daughter lives locally. 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 Spiritual: The daughter reports the patient has not been spiritual or yazidism and that she would not want a automotive salesperson to visit. Legal: The patient lacks capacity for decision-making and she will not regain that capacity. Her daughter is the designated healthcare surrogate. Ethical issues impacting care: None Important Contacts: Daughter: Ankita Abbott Home: Prognosis: Prognosis is quite poor. This is her third episode of sepsis in the last 3 months, she is significantly malnourished and weak, and now has pulmonary embolism and significant blood loss. She is appropriate for hospice services if the goals become comfort oriented. Code Status: No Code DNR Plan: * DO NOT RESUSCITATE, per request of daughter 04/25/18 * DECISION-MAKING: The patient lacks capacity for decision-making, and it seems very unlikely that she will regain that capacity. Her daughter reports she is the healthcare surrogate. * GOALS: Daughter definitely wants no resuscitation, and she now wants a transition to hospice services/comfort measures for end-of-life care, returning to the assisted with hospice help. * SYMPTOMS: It is difficult to tell if the patient has pain, but she does occasionally call out. Her encephalopathy is fairly profound. Hospice will manage the symptoms. * Hospice consult placed. * Palliative Care will continue to follow the patient during this hospitalization. Time Spent Total Floor Time (mins): 41 Face to Face Time (mins): 11 >50% Time in Counseling or Coordination of Care: Yes Attestation Attestation: To help prompt me to consider important information that might be impacting today's encounter and assessment, information from prior notes written by myself or my colleagues may have been "brought forward" into today's note. My signature on this note, however, is an attestation that I personally performed the exam, history, and/or decision-making noted today, and, unless otherwise indicated, the interactions with patient, family, and staff as well as the review of records all occurred today. I also attest that the listed assessment and stated plan reflect my best clinical judgment today based on the combination of historical information, prior notes, and today's exam/ interactions. When time spent is documented, it refers only to time spent today by the signer, or if indicated, combined time spent today by collaborating physician/nurse practitioner.
[2018-04-27] MEDS ORDERED: Potassium Phosphate Inj 30 MMOL in Sodium Chlor 0.9% Inj 250 ML IV.SIG ONE (22:00)
[2018-04-28] MEDS ORDERED: Pharmacy Ordered Lab Info OTHER ONE (03:45)
[2018-04-28] MEDS: Chlorhexidine Gluconate 2% 1 Pack (2 Cloths) TOPICAL SCH (05:45)
[2018-04-28] MEDS: Vancomycin Inj 1,300 MG in Sodium Chlor 0.9% Inj 500 ML IV.SIG SCH (05:55)
[2018-04-28] MEDS: Morphine Inj 4 MG/ML Vial IV.PUSH PRN ×2 (05:57→16:28)
[2018-04-28] MEDS ORDERED: Heparin Drip 25,000 UNIT/250 ML BAG IV.CONT SCH (07:30)
[2018-04-28] MEDS ORDERED: Enoxaparin Inj 100 MG/ML Syringe SQ ONE (08:00)
[2018-04-28] MEDS: Mupirocin 2% Nasal Oint Topical Syringe EACH NARE SCH (08:27)
[2018-04-28] MEDS: Famotidine PF Inj 20 MG/2 ML Vial IV.PUSH SCH (08:27)
[2018-04-28] MEDS: Senna/Docusate Sodium 8.6/50 MG Tablet PO SCH (08:28)
--- NOTE | 2018-04-28 15:58 | P.PNCC ---
Subjective Subjective Remarks/Hospital Course: 83-year-old female presents from rehab facility after patient found to have altered mentation decreased blood pressure and O2 saturation of 53% on room air. Patient was just released from the hospital today after hospitalization for urosepsis, hyperkalemia and Clostridium difficile colitis. Patient was found to be hypothermic reportedly according to rehab nursing notes with a temperature of 93F upon her arrival to the nursing facility at 3 PM. Patient was noted by fire department to have room air O2 saturation of 53% as well and was placed on supplemental oxygen IV access was not able to be obtained EMS transported patient with decreased level of consciousness blood sugar 153 hypotensive with systolic pressure of 80 with peripheral cyanosis and decreased mentation. Upon patient arrival she is awake complaining of pain and asking for help O2 saturation 99% on partial rebreather mask. Patient has history of atrial fibrillation with left bundle branch block. The CT of the chest shows positive study for pulmonary embolism with a dilation of the main pulmonary artery. 04/25: Afebrile. Remains on phenylephrine drip at 110 mcg/min and heparin drip at 800 units an hour. On Venturi mask at 30% satting 100%. Abdomen remains tender. Decentralized place secondary to right IJ currently at 8 cm. with multiple vasopressor medications in use. Subjective 04/26: Afebrile. Hemoglobin down to 5 this a.m. Currently being transfused 2 PRBCs. Continues with bruising bilateral femoral regions from attempted femoral central line placement in ED. Currently with a left subclavian CVL without signs of bleeding. Remains on telemetry but 110 mcg/min. On diet 04/27: Received morphine earlier for pain. On supplemental O2. Heparin off due to elevated PTT. 04/28: Appears comfortable. Family deciding regarding transfer to hospice Objective Vital Signs / I&O: Vital Signs 04/27/18 16:00 04/27/18 16:15 04/27/18 17:00 Temperature 99.1 F Pulse Rate 119 H 110 H 110 H Respiratory Rate 14 13 14 Blood Pressure 100/59 L 93/52 L 97/68 L Pulse Oximetry 100 100 100 04/27/18 17:15 04/27/18 17:30 04/27/18 17:44 Temperature 99.1 F Pulse Rate 114 H 109 H Respiratory Rate 15 13 Blood Pressure 92/66 L 87/59 L Pulse Oximetry 100 100 04/27/18 19:00 04/27/18 20:00 04/27/18 20:43 Temperature 98.8 F 98.8 F Pulse Rate 106 H 106 H 81 Respiratory Rate 24 24 16 Blood Pressure 98/54 L 81/51 L Pulse Oximetry 100 100 100 04/27/18 21:00 04/27/18 22:00 04/27/18 23:00 Temperature 98.8 F Pulse Rate 106 H 100 H 104 H Respiratory Rate 24 12 12 Blood Pressure 81/51 L 95/61 L 106/52 L Pulse Oximetry 100 100 100 04/28/18 00:00 04/28/18 01:00 04/28/18 02:00 Temperature 98.8 F 98.8 F Pulse Rate 102 H 100 H 104 H Respiratory Rate 20 20 22 Blood Pressure 95/52 L 112/73 106/51 L Pulse Oximetry 100 100 100 04/28/18 03:00 04/28/18 04:00 04/28/18 04:12 Temperature 97.0 F L Pulse Rate 102 H 101 H 75 Respiratory Rate 20 22 17 Blood Pressure 106/51 L 105/62 Pulse Oximetry 100 100 100 04/28/18 05:00 04/28/18 06:00 04/28/18 07:00 Temperature 97.0 F L 98.1 F Pulse Rate 101 H 101 H 105 H Respiratory Rate 22 22 12 Blood Pressure 105/62 102/73 102/73 Pulse Oximetry 100 100 100 04/28/18 07:16 04/28/18 07:31 04/28/18 07:45 Temperature Pulse Rate 104 H 102 H 104 H Respiratory Rate 14 11 L 12 Blood Pressure 143/85 H 101/56 L 112/62 Pulse Oximetry 100 100 100 04/28/18 08:00 04/28/18 08:15 04/28/18 08:20 Temperature 99.1 F Pulse Rate 109 H 109 H 109 H Respiratory Rate 12 14 16 Blood Pressure 97/60 L 120/71 Pulse Oximetry 100 100 100 04/28/18 08:30 04/28/18 08:45 04/28/18 09:00 Temperature Pulse Rate 113 H 108 H 110 H Respiratory Rate 15 14 14 Blood Pressure 126/57 L 114/56 L 115/55 L Pulse Oximetry 100 100 100 04/28/18 09:16 04/28/18 09:31 04/28/18 09:45 Temperature Pulse Rate 111 H 108 H 109 H Respiratory Rate 11 L 12 16 Blood Pressure 94/45 L 87/63 L 94/65 L Pulse Oximetry 100 100 100 04/28/18 10:00 04/28/18 10:01 04/28/18 10:16 Temperature Pulse Rate 124 H 117 H Respiratory Rate 13 13 13 Blood Pressure 112/61 133/88 Pulse Oximetry 100 100 100 04/28/18 10:36 04/28/18 10:45 04/28/18 11:00 Temperature Pulse Rate 113 H 104 H 112 H Respiratory Rate 14 13 13 Blood Pressure 133/74 144/69 H 141/64 H Pulse Oximetry 100 100 100 04/28/18 11:15 04/28/18 11:31 04/28/18 11:45 Temperature Pulse Rate 111 H 116 H 111 H Respiratory Rate 13 14 13 Blood Pressure 97/60 L 115/58 L 88/50 L Pulse Oximetry 100 100 100 04/28/18 12:00 04/28/18 12:16 04/28/18 12:24 Temperature Pulse Rate 114 H 113 H 116 H Respiratory Rate 14 13 22 Blood Pressure 93/70 L 93/55 L Pulse Oximetry 100 100 04/28/18 12:30 04/28/18 12:45 04/28/18 13:00 Temperature Pulse Rate 118 H 114 H 116 H Respiratory Rate 14 14 16 Blood Pressure 95/57 L 94/67 L 90/63 L Pulse Oximetry 100 100 100 04/28/18 13:15 04/28/18 13:31 04/28/18 13:45 Temperature Pulse Rate 111 H 118 H 113 H Respiratory Rate 13 16 14 Blood Pressure 98/74 L 111/66 114/82 Pulse Oximetry 100 100 100 04/28/18 14:00 04/28/18 14:15 04/28/18 14:30 Temperature Pulse Rate 116 H 116 H 115 H Respiratory Rate 14 16 14 Blood Pressure 107/61 86/52 L 98/62 L Pulse Oximetry 100 100 100 04/28/18 14:45 04/28/18 15:00 04/28/18 15:32 Temperature Pulse Rate 116 H 108 H 110 H Respiratory Rate 15 12 16 Blood Pressure 102/63 92/53 L Pulse Oximetry 100 100 Intake & Output 04/27/18 04/28/18 04/28/18 18:59 06:59 18:59 Intake Total 1699.4 / 1699.4 1420 / 1420 200 / 200 Output Total 150 / 150 Balance 1549.4 / 1549.4 1420 / 1420 200 / 200 Weight 110.5 kg Intake: IV 1699.4 / 1699.4 1300 / 1300 200 / 200 Heparin/D5W 25,000 U/250 mL 25, 250 / 250 000 unit In 250 ml @ Per Protocol IV.CONT TITRATE PRN Rx #:[id number] Neosynephrine Inj 40 MG In NS 436.4 / 436.4 Inj 496 ML @ 40 MCG/MIN 30 mls/ hr IV.CONT TITRATE PRN Rx#: [id number] Maxipime Inj 2,000 MG In NS Inj 100 / 100 100 / 100 100 ML @ 200 mls/hr IV.SIG Q12H AMELIE Rx#:[id number] Magnesium Sulfate 1 gm/D5W 100 100 / 100 ml Premix 100 ML @ 100 mls/hr IV.SIG Q1H AMELIE Rx#:[id number] KCl 40 mEq Premix Inj 40 meq In 100 / 100 100 ml @ 25 mls/hr IV.SIG Q4H AMELIE Rx#:[id number] Vancomycin Inj 1,300 MG In NS 513 / 513 1000 / 1000 Inj 500 ML @ 250 mls/hr IV.SIG Q12H AMELIE Rx#:[id number] Flagyl 500 MG Inj 100 ML @ 100 200 / 200 200 / 200 200 / 200 mls/hr IV.SIG Q6H AMELIE Rx#: [id number] Oral 120 / 120 Output: Urine Amount (Catheter) 150 / 150 Indwelling Urethral Catheter 150 / 150 Other: Date of Last Bowel Movement 04/27/18 04/28/18 04/28/18 # Bowel Movements 1 # Incontinent Bowel Movements 1 1 Result Diagrams: 04/27/18 04:30 04/27/18 14:50 Objective Remarks: GENERAL: 83-year-old female currently a mask in mild distress secondary to pain SKIN: Warm and dry. Well perfused. No rash. See musculoskeletal for deep tissue injury. Multiple signs of ecchymosis HEAD: Atraumatic. Normocephalic. EYES: Pupils equal and round. No scleral icterus. No injection or drainage. ENT: No nasal bleeding or discharge. Mucous membranes pink and moist. NECK: Trachea midline. No JVD. Right IJ has been removed without hematoma. Left subclavian is clean dry and intact. CARDIOVASCULAR: IRR. S1, S2 no S4 2/6 systolic murmur RESPIRATORY: No accessory muscle use. Clear to auscultation. Breath sounds equal bilaterally. GASTROINTESTINAL: Abdomen is tender to palpation bilateral lower quadrants especially. Hypoactive bowel sounds appreciated voluntary guarding. No rigidity. MUSCULOSKELETAL: Extremities positive bilateral upper and lower extremity edema. Left knee deep tissue injury. Bilateral femoral soft hematomas noted. Left hip 8 x 2 cm deep tissue injury NEUROLOGICAL: Drowsy, easily arousable,. Pleasantly confused. No obvious cranial nerve deficits. Motor grossly within normal limits. Five out of 5 muscle strength in the arms and legs. Assessment and Plan - Assessment and Plan Plan: Neuro/Psych: Acute encephalopathy secondary to severe sepsis Acute pain management CT brain on admission assessment revealed no acute intracranial findings Currently on morphine sulfate 2 mg IV every 2 hours as needed pain CV: Atrial fibrillation with rapid ventricular response History of essential hypertension Hyperlipidemia Severe sepsis Left bundle branch block Currently on phenylephrine drip at 110 mcg/min to maintain mean arterial pressure greater or equal to 65 CVP is 4 Receiving crystalloid and colloid resuscitation Initial troponin 0 0.07 Continue amiodarone per protocol currently 1 mg/min 2D echocardiogram 02/02 revealed EF 55-6%. Left atrial enlargement. Moderate MR. Holding home medication diltiazem 240 mg daily light of hypotension/vasopressor requirements. Resp: Acute respiratory failure secondary to left upper/lower extremity pulmonary embolism CT pulmonary angiogram 04/24 revealed left upper/lower lobe pulmonary embolus and. Received alteplase 100 mg over 2 hours 04/24. Currently in heparin drip. Venturi mask 35% titrate to maintain saturations greater than equal to 92% Incentive spirometry while awake Albuterol/ipratropium aerosols every 4 hours with albuterol aerosols every 2 hours as needed for dyspnea Chest x-ray in a.m. 04/26 GI: C. difficile with possible toxic megacolon History of dilated:/Fecal impaction Hypoalbuminemia Elevated total bilirubin Currently diet advance. Famotidine for GI prophylaxis Docusate sodium/senna 1 tablet twice daily for bowel regimen Currently in 6 doses of albumin 25% every 6 hours 6 per overnight daytime babysitter CT abdomen/pelvis revealed dilated large bowel. No signs of perforation. GI consultation : Wren catheter has been placed for accurate I's and O's in a critically ill patient Endo: Sliding scale insulin Accu-Cheks every 6 hours to maintain euglycemia TSH one-point and 7 Renal: Creatinine currently within normal limits Monitor urine output Accurate I's and O's Heme: Leukocytosis Normocytic anemia Elevated INR/PTT Currently heparin drip 800 units an hour. Monitor CBC daily. Follow trends. Fibrinogen in a.m. Transfusing 2 PRBCs today. Recheck at 1800 hrs. ID: Severe sepsis C. difficile UTI present prior to admission Currently on metronidazole 500 milligrams every 6 and vancomycin 250 milligrams by mouth 4 times daily. Her C. difficile C. difficile pending Blood cultures 04/24 no growth Cefepime for coverage FEN: Hypokalemia Hypomagnesia Monitor and replete electrolytes MSK: Old L2/3 compression fractures L3 hemangioma Deep tissue injury left hip and knee Elevated BMI PT evaluate and treat Wound care nurse evaluate and treat Weight loss encouraged Access -Left subclavian CVL placed 04/25. Remove right IJ CVL day #2 placed 04/24 in ED Prophylaxis -GI -famotidine -DVT -SCD/heparin drip Critical Care: The total critical care time was 30 minutes. Time to perform other separately billable procedures was not included in the critical care time. Palliative care involved. At this point likely trending towards comfort cares with acute blood loss anemia/unable to stop heparinization due to acute pulmonary embolism with possible toxic megacolon severe sepsis. Addendum: Hospital spoke with family. Patient being transferred to inpatient hospice. Will transfer out of ICU to hospitalist service. Critical care will be signing off. Discontinue all other medications. Will add Ativan and morphine as needed for comfort.
[2018-04-29] MEDS: Morphine Inj 4 MG/ML Vial IV.PUSH PRN ×2 (04:38→10:28)
[2018-04-29 09:36] VITALS: BP 159/112; TEMP 97.4; O2SAT 76
--- NOTE | 2018-04-29 12:50 | P.DS ---
Date of admission: 04/24/18 22:14 Primary care physician: UNKNOWN Brief History from admission: 83-year-old female presents from rehab facility after patient found to have altered mentation decreased blood pressure and O2 saturation of 53% on room air. Patient was just released from the hospital today after hospitalization for urosepsis, hyperkalemia and Clostridium difficile colitis. Patient was found to be hypothermic reportedly according to rehab nursing notes with a temperature of 93F upon her arrival to the nursing facility at 3 PM. Patient was noted by fire department to have room air O2 saturation of 53% as well and was placed on supplemental oxygen IV access was not able to be obtained EMS transported patient with decreased level of consciousness blood sugar 153 hypotensive with systolic pressure of 80 with peripheral cyanosis and decreased mentation. Upon patient arrival she is awake complaining of pain and asking for help O2 saturation 99% on partial rebreather mask. Patient has history of atrial fibrillation with left bundle branch block. The CT of the chest shows positive study for pulmonary embolism with a dilation of the main pulmonary artery. DS: Summary Hospital Course: 83-year-old female was admitted to intensive care unit with continuation of antibiotics. Was found to have pulmonary embolism with dilatation of the main pulmonary artery, was started on TPA. Required vasopressors any heparin drip. Both GI and general surgery were consulted for a distended colon and deemed that the patient was not an operative candidate. Patient ultimately required 2 units of packed red blood cells. Found to be bacteremic with MRSA, infectious disease have been following the patient with comanagement of antibiotics. Family eventually agreed to transition to hospice care after speaking with palliative care and hospice. Patient is being discharged to hospice. - Time Spent with Patient Total time spent providing and/or coordinating discharge services: Less than 30 minutes Exam Vital signs: Vital Signs 04/28/18 13:00 04/28/18 13:15 04/28/18 13:31 Temperature Pulse Rate 116 H 111 H 118 H Respiratory Rate 16 13 16 Blood Pressure 90/63 L 98/74 L 111/66 Pulse Oximetry 100 100 100 04/28/18 13:45 04/28/18 14:00 04/28/18 14:15 Temperature Pulse Rate 113 H 116 H 116 H Respiratory Rate 14 14 16 Blood Pressure 114/82 107/61 86/52 L Pulse Oximetry 100 100 100 04/28/18 14:30 04/28/18 14:45 04/28/18 15:00 Temperature Pulse Rate 115 H 116 H 108 H Respiratory Rate 14 15 12 Blood Pressure 98/62 L 102/63 92/53 L Pulse Oximetry 100 100 100 04/28/18 15:15 04/28/18 15:31 04/28/18 15:32 Temperature Pulse Rate 113 H 114 H 110 H Respiratory Rate 15 16 16 Blood Pressure 140/102 H Pulse Oximetry 100 100 04/28/18 15:46 04/28/18 16:00 04/28/18 16:01 Temperature Pulse Rate 115 H 114 H 115 H Respiratory Rate 13 14 16 Blood Pressure 158/62 H 101/46 L Pulse Oximetry 100 100 100 04/28/18 16:15 04/28/18 16:30 04/28/18 16:45 Temperature Pulse Rate 116 H 132 H 112 H Respiratory Rate 14 12 14 Blood Pressure 98/56 L 106/55 L 105/53 L Pulse Oximetry 100 100 100 04/28/18 17:00 04/28/18 17:16 04/28/18 17:30 Temperature Pulse Rate 112 H 116 H 114 H Respiratory Rate 12 13 13 Blood Pressure 100/53 L 84/61 L 81/59 L Pulse Oximetry 100 100 100 04/28/18 17:45 04/28/18 18:00 04/28/18 20:00 Temperature 97.9 F Pulse Rate 116 H 112 H 114 H Respiratory Rate 13 12 20 Blood Pressure 82/61 L 80/62 L 96/50 L Pulse Oximetry 100 100 98 04/28/18 20:57 04/28/18 23:40 04/28/18 23:55 Temperature Pulse Rate 105 H 115 H 103 H Respiratory Rate 17 16 Blood Pressure Pulse Oximetry 99 04/29/18 00:00 04/29/18 03:33 04/29/18 04:00 Temperature 97.8 F 97.6 F Pulse Rate 90 105 H 111 H Respiratory Rate 20 16 20 Blood Pressure 111/56 L 106/57 L Pulse Oximetry 100 100 04/29/18 08:00 04/29/18 08:20 04/29/18 08:21 Temperature Pulse Rate 77 Respiratory Rate 20 14 Blood Pressure Pulse Oximetry 94 L 04/29/18 09:35 04/29/18 11:43 Temperature 97.4 F L Pulse Rate 138 H 96 H Respiratory Rate 14 12 Blood Pressure 159/112 H Pulse Oximetry 76 L Intake & Output 04/28/18 04/29/18 04/29/18 18:59 06:59 18:59 Intake Total 225 / 225 0 / 0 Output Total 150 / 150 200 / 200 Balance 75 / 75 -200 / -200 Weight 102.7 kg Intake: IV 200 / 200 Flagyl 500 MG Inj 100 ML @ 100 200 / 200 mls/hr IV.SIG Q6H AMELIE Rx#: [id number] Oral 25 / 25 0 / 0 Output: Urine Amount (Catheter) 150 / 150 200 / 200 Indwelling Urethral Catheter 150 / 150 200 / 200 Other: Date of Last Bowel Movement 04/28/18 04/28/18 # Incontinent Bowel Movements 2 Narrative: Lying in bed, unlabored breathing, appears somnolent, on nasal cannula Mildly tachycardic heart rate Has wound on left medial thigh Obese white female, lying in bed Results Procedures completed during hospitalization: central line placement TPA Labs on day of discharge: Preliminary micro results at discharge 04/26/18 15:07 Anaerobic Blood Culture - Preliminary Blood - Peripheral No growth in 3 days - Impressions ITS Impressions Abdomen/Pelvis CT 04/25/18 00:00 CONCLUSION: 1. There are moderately distended air and fluid-filled loops of large bowel noted diffusely. 2. Body wall edema. 3. No focal fluid collections are identified to suggest abscess. Chest CTA 04/25/18 00:00 CONCLUSION: 1. The examination is positive for pulmonary embolus on the left. 2. Left thyroid nodule. 3. Small left pleural effusion. 4. Dilatation of the main pulmonary artery. Chest X-Ray 04/25/18 09:04 CONCLUSION: 1. Tip of the left subclavian central line low within the right atrium. No pneumothorax. 2. Right internal jugular vein central venous line unchanged. Abdomen X-Ray 04/26/18 07:00 CONCLUSION: Persistent colonic distention. Discharge Plan - Discharge Disposition Patient Disposition: [facility] - Discharge Condition Condition: Critical - Discharge Order Discharge Orders: Discharge Order (Routine); Ordered 04/29/18 Ordered By: Kolby Silva - Physicians Team Primary Care Provider: UNKNOWN, Attending Provider: Kolby Silva Other Providers: Raissa Haji ; Sheila Cardozo MD ; Danita Rocha MD ; Rommel Castro MD
[2018-04-29 15:08] VITALS: RESP 9
[2018-04-29 16:30] VITALS: PULSE 105
== END 2018-04-29 17:40 | disposition hospice, inpatient (51) ==
LOC: NEPC 20:44 → NEDA 22:14 → HIMC 23:30 → N04 04-28 20:21
PROVIDERS: ADMIT Hospitalist; ATTEND Hospitalist